=== PATIENT | female | born 1945 | race Hispanic/Latino ===

== ENCOUNTER 2017-05-28 11:37 | Emergency (ER) | payer OTHER ==
--- OUTSIDE RECORDS SUMMARY | 2017-05-28 11:40 | XMS REPORT | Clinical Summary ---
:1945 Author Organization [facility] Address [address] [place] [address] Care Team Providers Name Role Phone Asked, No Pcp Primary Care Provider Unavailable Allergies No Known Allergies Current Medications Prescription Sig. Disp. Refills Start Date End Date Status amLODIPine Take 5 mg by 09/25/2016 Active (NORVASC) 5 mg mouth daily. tablet furosemide (LASIX) Take 20 mg by 3 11/11/2016 Active 40 mg tablet mouth daily. losartan (COZAAR) Take 50 mg by 11/11/2016 Active 50 MG tablet mouth daily. omeprazole Take 40 mg by 0 11/20/2016 Active (PriLOSEC) 40 MG mouth daily. capsule RENVELA 800 mg Take 800 mg by 3 11/19/2016 Active tablet mouth 3 (three) times a day with meals. traMADol (ULTRAM) Take 50 mg by 11/23/2016 Active 50 mg tablet mouth every 12 (twelve) hours as needed for pain. for pain rOPINIRole Take 0.5 mg by 11 11/11/2016 Active (REQUIP) 0.5 MG mouth nightly as tablet needed for cramping. LEVEMIR FLEXTOUCH Inject 30 Units 3 10/09/2016 Active 100 unit/mL (3 mL) under the skin 2 insulin pen (two) times a day. NOVOLOG FLEXPEN Inject 8 Units 3 09/26/2016 Active 100 unit/mL under the skin 2 insulin pen (two) times a day. SANTYL ointment Apply 1 0 11/13/2016 Active application topically daily. carvedilol (COREG) Take 12.5 mg by 3 11/05/2016 Discontinued 12.5 MG tablet mouth daily. 7 ciprofloxacin HCl Take 250 mg by 0 12/04/2016 Discontinued (CIPRO) 250 MG mouth 2 (two) 7 tablet times a day. carvedilol (COREG) Take 1 tablet 30 tablet 0 12/25/2016 25 MG tablet (25 mg total) by 7 mouth daily for 30 days. ampicillin Take 1 capsule 20 capsule 0 12/25/2016 (PRINCIPEN) 500 MG (500 mg total) 7 capsule by mouth 2 (two) times a day for 10 days. Active Problems Problem Noted Date Peritoneal dialysis catheter dysfunction 12/21/2016 Anemia in chronic kidney disease 12/21/2016 Infection 12/21/2016 Encounters Date Type Specialty Care Team Description 12/22/2016 Anesthesia Event General Surgery Jamee Clayton CRNA 12/22/2016 Procedure Pass General Surgery 12/22/2016 Surgery General Surgery Opperpierre, ELLIOT Luna MD LAPAROSCOPY WITH REPOSITIONING OF PERITONEAL DIALYSIS CATHETER 12/21/2016 - Hospital Encounter General Internal Obia, Asma, Peritonitis (Primary Dx); 12/25/2016 Medicine Peritoneal dialysis catheter dysfunction, initial encounter 12/19/2016 Transcribe Orders Radiology Magaliki, Osteomyelitis, MD Petty unspecified site, unspecified type (Primary Dx) after 05/27/2016 Social History Tobacco Use Types Packs/Day Years Used Date Never Smoker Alcohol Use Drinks/Week oz/Week Comments No Sex Assigned at Date Recorded Not on file Last Filed Vital Signs Vital Sign Reading Time Taken Blood Pressure 152/65 12/25/2016 3:33 PM CDT Pulse 68 12/25/2016 3:33 PM CDT Temperature 36.8 C (98.2 F) 12/25/2016 3:33 PM CDT Respiratory Rate 18 12/25/2016 3:33 PM CDT Oxygen Saturation 93% 12/25/2016 3:33 PM CDT Inhaled Oxygen Concentration - - Weight 82.8 kg (182 lb 9.6 oz) 12/25/2016 4:52 AM CDT Height 149.9 cm (4' 11") 12/21/2016 1:49 AM CDT Body Mass Index 36.88 12/25/2016 4:52 AM CDT Plan of Treatment Health Maintenance Due Date Last Done Comments FOOT EXAM 01/26/1955 OPHTHALMOLOGY EXAM 01/26/1954 URINE MICROALBUMIN 01/26/1954 COLONOSCOPY 01/26/1994 MAMMOGRAM 01/26/1994 ZOSTER VACCINE 2004 PNEUMOCOCCAL POLYSACCHARIDE VACCINE AGE 65 AND OVER 01/26/2009 PNEUMOCOCCAL-13 01/26/2009 INFLUENZA VACCINE 09/30/2016 Implants Implanted Type Area Slice Plug Cutter Operator Helper Device Expiration Model / Identifier Date Serial / Lot Catheter Cv Powerline Dlmn Al 6fr - [id number] Surgical N/A: N/A BARD ACCESS 04/29/2021 [id number] / Implanted: 12/23/2016 (Quantity not on file) Implants; SYSTEMS / Expanders; [id number] Extenders; Surgical Wires Procedures Procedure Name Priority Date/Time Associated Diagnosis Comments ANESTHESIA INTUBATION Routine 12/22/2016 2:32 PM CDT Procedure Note - Pancho Miranda Jr., CRNA - 12/22/2016 2:31 PM CDT Airway Date/Time: 12/22/2016 2:20 PM Performed by: PANCHO MIRANDA JR Authorized by: LESLIE PAREDES Difficult Airway: No Resident/BASS GUITAR TEACHER: PANCHO MIRANDA JR Performed by: resident/BASS GUITAR TEACHER Preoxygenated with 100% O2: Yes C-spine Precautions Maintained Throughout: Yes Mask Ventilation: Easy mask Final Airway Type: Endotracheal airway Final Endotracheal Airway: ETT Cuffed: Yes Technique Used: Direct laryngoscopy Devices/Methods Used in Placement: Intubating stylet Blade Type: Melendez Laryngoscope Blade/Videolaryngoscope Blade Size: 2 ETT Size (mm): 7.0 Cuff at minimum occlusion pressure: Yes Measured from: Lips ETT to Lips (cm): 20 Placement Verified by: CO2 detection, direct visualization and equal breath sounds Laryngoscopic view: Grade I - full view of glottis Rapid Sequence Induction (RSI): No Modified RSI: No Number of Attempts at Approach: 1 ECHOCARDIOGRAM 2D COMPLETE W STAT 12/21/2016 1:36 PM CDT Results for this MMODE SPECTRAL COLOR DOPPLER procedure are in the (57066) results section. CONSULT TO OSTOMY CARE NURSE Routine 12/21/2016 4:43 AM CDT after 05/27/2016 Results IR Endovascular Consult (12/25/2016 2:09 PM) Specimen Performing Laboratory [facility] [address] [place] [address] Narrative Performing Radiologist Juice Judd MD Assistants None Anesthesia Type None. Indication No longer requiring tunneled central venous catheter. Procedure Right chest tunneled central venous catheter removal. Technique Written informed consent was obtained prior to the procedure. The procedure was performed at the bedside in the PACU with 20 minutes of face to face time with the patient. The right chest and tunneled central venous catheter were sterilely prepared and draped in the routine manner. The suture securing the tunneled central venous catheter were then cut. Using gentle traction, the cuff of the indwelling tunneled central venous catheter was freed, and this catheter was removed. Hemostasis was achieved with manual compression. The patient tolerated the procedure well. Total Fluoroscopic Time No fluoroscopy was used Complications None Specimens Removed As described above. Estimated Blood Loss Less then 1 mL Blood/Blood Products Administered None Grafts/Implants None Impression: Successful removal of the right chest tunneled central venous catheter, as described above. [facility]-[id number] Procedure Note Hm Interface, Radiology Results Incoming - 12/25/2016 2:22 PM CDT Performing Radiologist Juice Judd MD Assistants None Anesthesia Type None. Indication No longer requiring tunneled central venous catheter. Procedure Right chest tunneled central venous catheter removal. Technique Written informed consent was obtained prior to the procedure. The procedure was performed at the bedside in the PACU with 20 minutes of face to face time with the patient. The right chest and tunneled central venous catheter were sterilely prepared and draped in the routine manner. The suture securing the tunneled central venous catheter were then cut. Using gentle traction, the cuff of the indwelling tunneled central venous catheter was freed, and this catheter was removed. Hemostasis was achieved with manual compression. The patient tolerated the procedure well. Total Fluoroscopic Time No fluoroscopy was used Complications None Specimens Removed As described above. Estimated Blood Loss Less then 1 mL Blood/Blood Products Administered None Grafts/Implants None Impression: Successful removal of the right chest tunneled central venous catheter, as described above. [facility]-[id number] POC glucose (12/25/2016 11:36 AM)Only the most recent of24 resultswithin the time period is included. Component Value Ref Range POC glucose 154 (H) 65 - 99 mg/dL Comment: Meter ID: [id number] Visual Display Manager: Felipe Haley Specimen Performing Laboratory [facility] DEPARTMENT OF PATHOLOGY AND GENOMIC MEDICINE [address] [place] [id number] Estimated GFR (12/25/2016 6:00 AM)Only the most recent of4 resultswithin the time period is included. Component Value Ref Range GFR Non Af Amer 9 (A) mL/min/1.73 m2 GFR Af Amer 11 (A) mL/min/1.73 m2 Comment: Chronic kidney disease: <60 mL/min/1.73m2 Kidney failure: <15 mL/min/1.73m2 The estimated GFR is calculated from the IDMS-traceable Modification of Diet in Renal Disease Equation. The accuracy of the calculation is poor when the creatinine is normal. Calculated values >90 mL/min/1.73m2 are not reported. This equation has not been validated in children (<18 years), women, the elderly (>70 years), or ethnic groups other than Caucasians and Americans. Specimen Performing Laboratory Plasma specimen [facility] DEPARTMENT OF PATHOLOGY AND [facility]IC[facility] [address] [place] [id number] CBC with platelet and differential (12/25/2016 6:00 AM)Only the most recent of4 resultswithin the time period is included. Component Value Ref Range WBC 8.9 4.5 - 11.0 k/uL RBC 3.25 (L) 4.20 - 5.50 m/uL HGB 10.0 (L) 12.0 - 16.0 g/dL HCT 31.0 (L) 37.0 - 47.0 % MCV 95.4 82.0 - 100.0 fL MCH 30.8 27.0 - 34.0 pg MCHC 32.3 31.0 - 37.0 g/dL RDW - SD 45.6 37.0 - 55.0 fL MPV 10.4 6.9 - 11.0 fL Platelet count 282 150 - 400 K/uL Nucleated RBC 0.00 /100 WBC Neutrophils 59.6 39.0 - 69.0 % Lymphocytes 22.8 (L) 25.0 - 45.0 % Monocytes 10.3 (H) 0.0 - 10.0 % Eosinophils 4.9 0.0 - 5.0 % Basophils 0.8 0.0 - 1.0 % Immature granulocytes 1.6 (H) 0.0 - 1.0 % Specimen Performing Laboratory Blood [facility] DEPARTMENT OF PATHOLOGY AND [facility] [address] [place] [id number] Basic metabolic panel (12/25/2016 6:00 AM)Only the most recent of3 resultswithin the time period is included. Component Value Ref Range Sodium 141 135 - 148 mEq/L Potassium 3.5 3.5 - 5.0 mEq/L Chloride 102 98 - 112 mEq/L CO2 26 24 - 31 mEq/L Anion gap 13 7 - 15 mEq/L Comment: Starting from May , anion gap calculation no longer incorporates potassium. Please note the change. BUN 31 (H) 8 - 23 mg/dL Creatinine 4.7 (H) 0.5 - 0.9 mg/dL Glucose 142 (H) 65 - 99 mg/dL Calcium 8.3 (L) 8.8 - 10.2 mg/dL Specimen Performing Laboratory Plasma specimen [facility] DEPARTMENT OF PATHOLOGY AND GENOMIC MEDICINE [address] [place] [id number] Hepatitis B surface Ab, quantitative (12/24/2016 5:39 AM) Component Value Ref Range Hepatitis B surface Ab 16.24 IU/L Comment: The anti-HBs is greater than or equal to 10 IU/L. This patient has either had an antibody response to HBV vaccination, received a transfusion, or has recovered from HBV infection. This patient should be considered immune to hepatitis B. An anti-HBs result greater than or equal to 10 IU/L implies immunity. For post-vaccination antibody testing guidelines for the general public refer to MMWR February 21, 2005/Vol. 54(No. 16);1-23, and for healthcare workers refer to MMWR February 18, 2013/Vol. 62(No. 10);1-19. Reference Interval: anti-HBs 9.99 IU/L or less ....... Negative 10.00 IU/L or greater .... Positive Results greater than 1,000.00 IU/L are reported as greater than 1,000.00 IU/L. This assay should not be used for blood donor screening, associated re-entry protocols, or for screening Human Cell, Tissues and Cellular and Tissue-Based Products (HCT/P). Performed by [facility], [address] [place] [address] [id number] [email or web address], Fredrick Gonzalez MD - Lab. Director Specimen Performing Laboratory [facility] [address] [place] [address] Hepatitis B surface antibody (12/24/2016 5:39 AM) Component Value Ref Range Hepatitis B surface Ab Reactive (A) Non-reactive Specimen Performing Laboratory Blood [facility] DEPARTMENT OF PATHOLOGY AND GENOMIC MEDICINE [address] [place] [id number] Hepatitis B surface antigen (12/24/2016 5:39 AM) Component Value Ref Range Hepatitis B surface Ag Non-reactive Non-reactive Specimen Performing Laboratory Blood [facility] DEPARTMENT OF PATHOLOGY AND GENOMIC MEDICINE [address] [place] [id number] Sedimentation rate (12/24/2016 5:39 AM) Component Value Ref Range Sedimentation rate 107 (H) 0 - 20 mm/hr Specimen Performing Laboratory Blood [facility] DEPARTMENT OF PATHOLOGY AND GENOMIC MEDICINE [address] [place] [address] C-reactive protein (12/24/2016 5:39 AM) Component Value Ref Range CRP 3.81 (H) 0.00 - 0.50 mg/dL Specimen Performing Laboratory Plasma specimen [facility] DEPARTMENT OF PATHOLOGY AND GENOMIC MEDICINE [address] [place] [id number] IR Central Catheter Placement Us (12/23/2016 10:43 AM) Specimen Performing Laboratory [facility] [address] [place] [address] Narrative Performing Radiologist Ankur Enriquez MD Assistants None. Anesthesia Type Intraservice moderate sedation was administered by the procedure nurse and monitored by the procedure physician for 20 minutes. Lidocaine 1% and lidocaine 1% with epinephrine were used for local anesthetic. Pre Procedure Diagnosis cellulitis Post Procedure Diagnosis Status post tunneled right internal jugular vein central venous catheter placement. 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 Ultrasound-guided needle placement x2 Limited focused sonographic evaluation of the bilateral internal jugular veins Technique After explaining the procedure as well as its benefits and risks including but not limited to bleeding, infection, and damage to adjacent structures all of the patient's questions were answered to apparent satisfaction and written informed consent was then obtained. The patient's left neck and upper chest were sterilely prepared and draped in the routine manner. All elements of maximal sterile barrier technique were followed.Lidocaine 1% was used for local anesthetic. The left neck was interrogated with ultrasound which do not reveal a patent left internal jugular vein likely due to chronic occlusion. However, the left external jugular vein was identified. Permanent images were stored. Using real-time ultrasound guidance, a 21-gauge micropuncture needle was advanced successfully into the left external jugular vein. A 0.018 inch guidewire was advanced centrally though would not advance into the superior vena cava likely due to chronic occlusion from hemodialysis catheter placement. The needle was removed and hemostasis achieved after direct manual compression. The patient's right neck and upper chest were then prepped and draped in usual sterile fashion. All elements of maximal sterile barrier technique were utilized. The right neck was interrogated with ultrasound again revealing chronic occlusion of the right internal jugular vein. However, the right external jugular vein was patent. A new Dereck puncture needle was then inserted into the right external jugular vein using direct ultrasound guidance. A permanent image was stored in order to document vessel patency. Guidewire passed easily centrally into the inferior vena cava through the needle under fluoroscopy. The needle was removed and a micropuncture sheath system was then placed. Under ultrasound guidance, documentation of vessel patency, needle access with permanent recording, and reporting are performed followed by placement of a sheath in the right external jugular vein. The inner dilator and guidewire were then removed, and a guidewire was advanced through the micropuncture sheath and successfully into the inferior vena cava. The right infraclavicular fossa was anesthetized with lidocaine 1% mixed with epinephrine.A skin incision was made, and a tunneling device was used to pass the tunneled central venous catheter from the skin entry site to the venotomy site. Attention was then returned to the venotomy site. The tract was then sequentially dilated, and a tunneled central venous catheter was then deployed through a peel-away sheath. The catheter tip was placed in the right atrium under fluoroscopic guidance. All ports were tested and demonstrate adequate flow. The catheter was secured to the skin using 2-0 silk suture. The small venotomy incision was closed with Dermabond. The patient tolerated the procedure well. Total Fluoroscopic Exposure 11.8 mGy Complications None. Specimens Removed None. Estimated Blood Loss Less than 2 mL. Blood/Blood Products Administered None. Grafts/Implants As described in the above report. Impression: Successful fluoroscopic-guided placement of a tunneled central venous catheter via the right external jugular vein. Ready for use. 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 [facility]-[id number] Procedure Note Hm Interface, Radiology Results Incoming - 12/23/2016 11:00 AM CDT Performing Radiologist Ankur Enriquez MD Assistants None. Anesthesia Type Intraservice moderate sedation was administered by the procedure nurse and monitored by the procedure physician for 20 minutes. Lidocaine 1% and lidocaine 1% with epinephrine were used for local anesthetic. Pre Procedure Diagnosis cellulitis Post Procedure Diagnosis Status post tunneled right internal jugular vein central venous catheter placement. 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 Ultrasound-guided needle placement x2 Limited focused sonographic evaluation of the bilateral internal jugular veins Technique After explaining the procedure as well as its benefits and risks including but not limited to bleeding, infection, and damage to adjacent structures all of the patient's questions were answered to apparent satisfaction and written informed consent was then obtained. The patient's left neck and upper chest were sterilely prepared and draped in the routine manner. All elements of maximal sterile barrier technique were followed. Lidocaine 1% was used for local anesthetic. The left neck was interrogated with ultrasound which do not reveal a patent left internal jugular vein likely due to chronic occlusion. However, the left external jugular vein was identified. Permanent images were stored. Using real-time ultrasound guidance, a 21-gauge micropuncture needle was advanced successfully into the left external jugular vein. A 0.018 inch guidewire was advanced centrally though would not advance into the superior vena cava likely due to chronic occlusion from hemodialysis catheter placement. The needle was removed and hemostasis achieved after direct manual compression. The patient's right neck and upper chest were then prepped and draped in usual sterile fashion. All elements of maximal sterile barrier technique were utilized. The right neck was interrogated with ultrasound again revealing chronic occlusion of the right internal jugular vein. However, the right external jugular vein was patent. A new Dereck puncture needle was then inserted into the right external jugular vein using direct ultrasound guidance. A permanent image was stored in order to document vessel patency. Guidewire passed easily centrally into the inferior vena cava through the needle under fluoroscopy. The needle was removed and a micropuncture sheath system was then placed. Under ultrasound guidance, documentation of vessel patency, needle access with permanent recording, and reporting are performed followed by placement of a sheath in the right external jugular vein. The inner dilator and guidewire were then removed, and a guidewire was advanced through the micropuncture sheath and successfully into the inferior vena cava. The right infraclavicular fossa was anesthetized with lidocaine 1% mixed with epinephrine. A skin incision was made, and a tunneling device was used to pass the tunneled central venous catheter from the skin entry site to the venotomy site. Attention was then returned to the venotomy site. The tract was then sequentially dilated, and a tunneled central venous catheter was then deployed through a peel-away sheath. The catheter tip was placed in the right atrium under fluoroscopic guidance. All ports were tested and demonstrate adequate flow. The catheter was secured to the skin using 2-0 silk suture. The small venotomy incision was closed with Dermabond. The patient tolerated the procedure well. Total Fluoroscopic Exposure 11.8 mGy Complications None. Specimens Removed None. Estimated Blood Loss Less than 2 mL. Blood/Blood Products Administered None. Grafts/Implants As described in the above report. Impression: Successful fluoroscopic-guided placement of a tunneled central venous catheter via the right external jugular vein. Ready for use. 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 [id number] Non Tunneled Central Line (12/23/2016 10:43 AM) [place] [address] Narrative Performing Radiologist Ankur Enriquez MD Assistants None. Anesthesia Type Intraservice moderate sedation was administered by the procedure nurse and monitored by the procedure physician for 20 minutes. Lidocaine 1% and lidocaine 1% with epinephrine were used for local anesthetic. Pre Procedure Diagnosis cellulitis Post Procedure Diagnosis Status post tunneled right internal jugular vein central venous catheter placement. 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 Ultrasound-guided needle placement x2 Limited focused sonographic evaluation of the bilateral internal jugular veins Technique After explaining the procedure as well as its benefits and risks including but not limited to bleeding, infection, and damage to adjacent structures all of the patient's questions were answered to apparent satisfaction and written informed consent was then obtained. The patient's left neck and upper chest were sterilely prepared and draped in the routine manner. All elements of maximal sterile barrier technique were followed.Lidocaine 1% was used for local anesthetic. The left neck was interrogated with ultrasound which do not reveal a patent left internal jugular vein likely due to chronic occlusion. However, the left external jugular vein was identified. Permanent images were stored. Using real-time ultrasound guidance, a 21-gauge micropuncture needle was advanced successfully into the left external jugular vein. A 0.018 inch guidewire was advanced centrally though would not advance into the superior vena cava likely due to chronic occlusion from hemodialysis catheter placement. The needle was removed and hemostasis achieved after direct manual compression. The patient's right neck and upper chest were then prepped and draped in usual sterile fashion. All elements of maximal sterile barrier technique were utilized. The right neck was interrogated with ultrasound again revealing chronic occlusion of the right internal jugular vein. However, the right external jugular vein was patent. A new Dereck puncture needle was then inserted into the right external jugular vein using direct ultrasound guidance. A permanent image was stored in order to document vessel patency. Guidewire passed easily centrally into the inferior vena cava through the needle under fluoroscopy. The needle was removed and a micropuncture sheath system was then placed. Under ultrasound guidance, documentation of vessel patency, needle access with permanent recording, and reporting are performed followed by placement of a sheath in the right external jugular vein. The inner dilator and guidewire were then removed, and a guidewire was advanced through the micropuncture sheath and successfully into the inferior vena cava. The right infraclavicular fossa was anesthetized with lidocaine 1% mixed with epinephrine.A skin incision was made, and a tunneling device was used to pass the tunneled central venous catheter from the skin entry site to the venotomy site. Attention was then returned to the venotomy site. The tract was then sequentially dilated, and a tunneled central venous catheter was then deployed through a peel-away sheath. The catheter tip was placed in the right atrium under fluoroscopic guidance. All ports were tested and demonstrate adequate flow. The catheter was secured to the skin using 2-0 silk suture. The small venotomy incision was closed with Dermabond. The patient tolerated the procedure well. Total Fluoroscopic Exposure 11.8 mGy Complications None. Specimens Removed None. Estimated Blood Loss Less than 2 mL. Blood/Blood Products Administered None. Grafts/Implants As described in the above report. Impression: Successful fluoroscopic-guided placement of a tunneled central venous catheter via the right external jugular vein. Ready for use. 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 [facility]-[id number] Procedure Note Hm Interface, Radiology Results Incoming - 12/23/2016 11:30 AM CDT Performing Radiologist Ankur Enriquez MD Assistants None. Anesthesia Type Intraservice moderate sedation was administered by the procedure nurse and monitored by the procedure physician for 20 minutes. Lidocaine 1% and lidocaine 1% with epinephrine were used for local anesthetic. Pre Procedure Diagnosis cellulitis Post Procedure Diagnosis Status post tunneled right internal jugular vein central venous catheter placement. 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 Ultrasound-guided needle placement x2 Limited focused sonographic evaluation of the bilateral internal jugular veins Technique After explaining the procedure as well as its benefits and risks including but not limited to bleeding, infection, and damage to adjacent structures all of the patient's questions were answered to apparent satisfaction and written informed consent was then obtained. The patient's left neck and upper chest were sterilely prepared and draped in the routine manner. All elements of maximal sterile barrier technique were followed. Lidocaine 1% was used for local anesthetic. The left neck was interrogated with ultrasound which do not reveal a patent left internal jugular vein likely due to chronic occlusion. However, the left external jugular vein was identified. Permanent images were stored. Using real-time ultrasound guidance, a 21-gauge micropuncture needle was advanced successfully into the left external jugular vein. A 0.018 inch guidewire was advanced centrally though would not advance into the superior vena cava likely due to chronic occlusion from hemodialysis catheter placement. The needle was removed and hemostasis achieved after direct manual compression. The patient's right neck and upper chest were then prepped and draped in usual sterile fashion. All elements of maximal sterile barrier technique were utilized. The right neck was interrogated with ultrasound again revealing chronic occlusion of the right internal jugular vein. However, the right external jugular vein was patent. A new Dereck puncture needle was then inserted into the right external jugular vein using direct ultrasound guidance. A permanent image was stored in order to document vessel patency. Guidewire passed easily centrally into the inferior vena cava through the needle under fluoroscopy. The needle was removed and a micropuncture sheath system was then placed. Under ultrasound guidance, documentation of vessel patency, needle access with permanent recording, and reporting are performed followed by placement of a sheath in the right external jugular vein. The inner dilator and guidewire were then removed, and a guidewire was advanced through the micropuncture sheath and successfully into the inferior vena cava. The right infraclavicular fossa was anesthetized with lidocaine 1% mixed with epinephrine. A skin incision was made, and a tunneling device was used to pass the tunneled central venous catheter from the skin entry site to the venotomy site. Attention was then returned to the venotomy site. The tract was then sequentially dilated, and a tunneled central venous catheter was then deployed through a peel-away sheath. The catheter tip was placed in the right atrium under fluoroscopic guidance. All ports were tested and demonstrate adequate flow. The catheter was secured to the skin using 2-0 silk suture. The small venotomy incision was closed with Dermabond. The patient tolerated the procedure well. Total Fluoroscopic Exposure 11.8 mGy Complications None. Specimens Removed None. Estimated Blood Loss Less than 2 mL. Blood/Blood Products Administered None. Grafts/Implants As described in the above report. Impression: Successful fluoroscopic-guided placement of a tunneled central venous catheter via the right external jugular vein. Ready for use. 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 [facility]-[id number] Vancomycin level, trough (12/23/2016 3:55 AM) Component Value Ref Range Vancomycin, trough 24.9 (HH) 10.0 - 20.0 ug/mL Comment: Therapeutic Ranges: Peak30.0 - 40.0 ug/mL Amanxw73.0 - 20.0 ug/mL Final results called to and read back by GERARDO MCCOY 12/23/2016 04:43 AR Specimen Performing Laboratory Blood [facility] DEPARTMENT OF PATHOLOGY AND GENOMIC MEDICINE [address] [place] [id number] AFB culture (12/22/2016 6:45 PM) Component Value Ref Range AFB culture isolate No growth after 6 weeks of incubation. Comment: Specimen Information Specimen Source: Peritoneal fluid Specimen Site: Abdominal Specimen Performing Laboratory Peritoneal fluid - Abdominal [facility] DEPARTMENT OF PATHOLOGY AND GENOMIC MEDICINE [address] [place] [id number] Fungus culture (12/22/2016 6:45 PM) Component Value Ref Range Fungus culture isolate No growth after 4 weeks of incubation. Comment: Specimen Information Specimen Source: Peritoneal fluid Specimen Site: Abdominal Specimen Performing Laboratory Peritoneal fluid - Abdominal [facility] DEPARTMENT OF PATHOLOGY AND GENOMIC MEDICINE [address] [place] [phone] Fungus smear (12/22/2016 5:45 PM) Component Value Ref Range Fungus smear No fungi observed. Comment: Specimen Information Specimen Source: Peritoneal fluid Specimen Site: Abdominal Specimen Performing Laboratory Peritoneal fluid Abdominal [facility] DEPARTMENT OF PATHOLOGY AND GENOMIC MEDICINE [address] [place] [id number] Aerobic culture (12/22/2016 5:45 PM) Component Value Ref Range Aerobic culture isolate No growth after 3 days. Comment: Specimen Information Specimen Source: Peritoneal fluid Specimen Site: Abdominal Specimen Performing Laboratory Peritoneal fluid - Abdominal [facility] DEPARTMENT OF PATHOLOGY AND [facility] MEDICINE [address] [place] [phone] Gram stain (12/22/2016 5:45 PM) Component Value Ref Range Gram stain isolate Occasional WBC's No organisms seen Comment: Specimen Information Specimen Source: Peritoneal fluid Specimen Site: Abdominal Specimen Performing Laboratory Peritoneal fluid Abdominal [facility] DEPARTMENT OF PATHOLOGY AND [facility] MEDICINE [address] [place] [id number] AFB stain (12/22/2016 5:45 PM) Component Value Ref Range AFB stain No acid fast bacilli (AFB) seen. Comment: Specimen Information Specimen Source: Peritoneal fluid Specimen Site: Abdominal Specimen Performing Laboratory Peritoneal fluid Abdominal [facility] DEPARTMENT OF PATHOLOGY [address] [address] Anaerobic culture (12/22/2016 5:45 PM) Component Value Ref Range Anaerobic culture isolate No anaerobic organisms isolated. Comment: Specimen Information Specimen Source: Peritoneal fluid Specimen Site: Abdominal Specimen Performing Laboratory Peritoneal fluid Abdominal [facility] DEPARTMENT OF PATHOLOGY AND [facility] MEDICINE [address] [place] [address] Cell count and differential, body fluid (12/22/2016 5:45 PM) Component Value Ref Range Misc fluid type Peritoneal Color, fluid Red Appearance, fluid Cloudy (A) RBC, fluid 22,000 /CMM Nucleated cells, fluid 512 /CMM Fluid mononuclear cell See Diff Neutrophils, fluid 45 % Lymphocytes, fluid 34 % Eosinophils, fluid 1 % Macrophages, fluid 20 % Specimen Performing Laboratory Fluid [facility] DEPARTMENT OF PATHOLOGY AND GENOMIC MEDICINE [address] [place] [phone] Type and screen (12/22/2016 3:35 AM) Component Value Ref Range ABO grouping O Rh type POS Antibody screen (gel) NEG Specimen Performing Laboratory Blood [facility] DEPARTMENT PATHOLOGY AND [address] [address] Blood culture, aerobic & anaerobic (12/21/2016 3:00 PM)Only the most recent of2 resultswithin the time period is included. Component Value Ref Range Blood culture isolate No growth after 5 days of incubation. Comment: Specimen Information Specimen Source: Blood Specimen Site: Wrist, right Specimen Performing Laboratory Blood - Wrist, right [facility] DEPARTMENT OF PATHOLOGY AND GENOMIC MEDICINE [address] [place] [address] Echocardiogram complete w contrast and 3D if needed (12/21/2016 1:36 PM) Component Value Ref Range Ao Root Diameter 2.92 cm AoV Area, Vmax 4.61 cm2 AoV Area, VTI 6.10 cm2 AoV Mean PG 2.61 mmHg AoV Peak PG 9.31 mmHg AoV Vmax 1.53 m/s AoV VTI 0.23 m IVS,d 1.56 (A) 0.6 - 1.2 cm IVS/LVPW,2D 1.51 Left Atrium Dimension Anterior 3.12 cm LA Area d A4C 16.58 cm2 LV,d 3.87 cm LV EF,2D 64.82 % LV,s 2.73 cm LVOT area 4.08 cm2 LVOT Diam,S 2.28 cm LVOT Vmax 1.17 m/s LVOT VTI 0.34 m LVPWD,d 1.03 cm PV Pk Grad 1.93 mmHg PV VMAX 0.69 m/s RVOT Vmax 0.73 m/s TR Vpeak 2.34 mm/s MV E A ratio 0.64 mmHg TR pk grad 21.84 mmHg E wave decelartion time 388.38 msec MV Peak A Gio 1.09 m/s MV valve area p 1/2 method 1.95 cm2 MV Peak E Gio 0.70 m/s MV stenosis pressure 1/2 time 112.63 ms AV LVOT peak gradient 5.52 mmHg Ao Root Diameter 2.92 cm LV SYS VOL 27.82 ml LV BAPTISTE VOL 64.72 ml LV SV Teich 2D 36.90 ml LV Vol s Teich PSAX 27.82 ml RVOT pk grad 1.09 mmHg AoV Vmn 0.78 LV FS Teich 2D 29.40 MV AE ratio 1.55 LV FS Cube 2D 29.40 LVOT Vmn 0.85 Aov area Vmn 3.53 cm2 LA Vol d MOD A4C 44.94 ml LVOT mean grad 3.30 mmHg MAX Pred HR 147.10 85 of MPHR 125.03 Calc MPHR 147.10 bpm LV SV Cube 2D 37.58 ml LV vol d cube 2D 57.98 ml LV vol s cube 2D 20.40 ml MV Decel slope 1.81 m/s2 Pred Exer Dur R1 6.51 Pred METS R1 5.22 Velocity Ratio (V1/V2) 0.76 m/s EF 57.01 % E/A ratio 0.64 Specimen Performing Laboratory [facility] [address] [place] [address] Narrative There is moderate left ventricular hypertrophy. Left Ventricular ejection fraction is 55 - 60%. No pericardial effusion Spectral Doppler shows impaired relaxation pattern of left ventricular diastolic filling. Stage I diastolic dysfunction with pseudonormal filling dynamics. ECG Pre/Post Op (12/21/2016 1:19 PM) Component Value Ref Range Ventricular rate 71 Atrial rate 71 VA interval 138 QRSD interval 72 QT interval 430 QTC interval 467 P axis 1 59 QRS axis 1 49 T wave axis -11 EKG impression Normal sinus rhythm-Septal infarct , age undetermined-T wave abnormality, consider inferior ischemia-Abnormal ECG-No previous ECGs available- Specimen Performing Laboratory [facility] [address] [place] [address] CT Abdomen Pelvis Wo Contrast (12/21/2016 9:43 AM) Specimen Performing Laboratory [facility] [address] [place] [address] Narrative EXAMINATION:CT ABDOMEN PELVIS WO CONTRAST CLINICAL HISTORY:PERITONITIS PD CATHTER DYSFUNCTION TECHNIQUE: Multiple axial images of the abdomen and pelvis were obtained without intravenous administration of iodinated contrast. Sagittal and coronal computerized reformatted images were also obtained. The lack of intravenous contrast reduces the sensitivity of detecting solid organ disease. CT scans are performed using radiation dose reduction techniques. Technical factors are evaluated and adjusted to ensure appropriate moderation of exposure. Automated dose management technology is applied to adjust radiation exposure while achieving a diagnostic quality image. COMPARISON:None. IMPRESSION: 1.The unenhanced spleen, adrenal glands, and pancreas are unremarkable. Multiple gallstones are present in the gallbladder without gallbladder distention. A benign-appearing calcified mass within the medial left lobe of the liver measures 2.2 cm. Bilateral nonspecific perinephric stranding is present. There is no hydronephrosis. 2.There is calcified plaque within the abdominal aorta which is normal in caliber. There is no lymphadenopathy or ascites. 3.There is a tiny hiatal hernia. There are no inflammatory changes around the large or small bowel. Appendix is normal. 4.There is a peritoneal dialysis catheter which enters the midline of the upper pelvis and terminates just anterior and superior to the bladder. 5.Bladder is partially distended with urine. Multiple calcified masses within the uterus are most consistent with uterine fibroids, the largest measuring 1.3 cm. No pelvic lymphadenopathy is seen. 6.A small calcified granuloma is present in the right lower lobe. There is volume loss and scarring in the lung bases. There are degenerative changes within the lower thoracic and lumbosacral spine. [id number] Procedure Note Hm Interface, Radiology Results Incoming - 12/21/2016 9:54 AM CDT EXAMINATION: CT ABDOMEN PELVIS WO CONTRAST CLINICAL HISTORY: PERITONITIS PD CATHTER DYSFUNCTION TECHNIQUE: Multiple axial images of the abdomen and pelvis were obtained without intravenous administration of iodinated contrast. Sagittal and coronal computerized reformatted images were also obtained. The lack of intravenous contrast reduces the sensitivity of detecting solid organ disease. CT scans are performed using radiation dose reduction techniques. Technical factors are evaluated and adjusted to ensure appropriate moderation of exposure. Automated dose management technology is applied to adjust radiation exposure while achieving a diagnostic quality image. COMPARISON: None. IMPRESSION: 1. The unenhanced spleen, adrenal glands, and pancreas are unremarkable. Multiple gallstones are present in the gallbladder without gallbladder distention. A benign-appearing calcified mass within the medial left lobe of the liver measures 2.2 cm. Bilateral nonspecific perinephric stranding is present. There is no hydronephrosis. 2. There is calcified plaque within the abdominal aorta which is normal in caliber. There is no lymphadenopathy or ascites. 3. There is a tiny hiatal hernia. There are no inflammatory changes around the large or small bowel. Appendix is normal. 4. There is a peritoneal dialysis catheter which enters the midline of the upper pelvis and terminates just anterior and superior to the bladder. 5. Bladder is partially distended with urine. Multiple calcified masses within the uterus are most consistent with uterine fibroids, the largest measuring 1.3 cm. No pelvic lymphadenopathy is seen. 6. A small calcified granuloma is present in the right lower lobe. There is volume loss and scarring in the lung bases. There are degenerative changes within the lower thoracic and lumbosacral spine. [id number] Prothrombin time with INR (12/21/2016 4:00 AM) Component Value Ref Range Prothrombin time 13.9 12.0 - 15.0 sec INR 1.1 Comment: The International Normalized Ratio (INR) is a therapeutic monitoring tool for patients who are stable on oral anticoagulant therapy. An INR of 2.0-3.0 is suggested for deep vein thrombosis/pulmonary embolism. Specimen Performing Laboratory Blood [facility] DEPARTMENT OF PATHOLOGY AND [address] [address] Lactic acid level (12/21/2016 4:00 AM) Component Value Ref Range Lactic acid 0.7 0.5 - 2.2 mmol/L Specimen Performing Laboratory Plasma specimen [facility] DEPARTMENT OF PATHOLOGY AND [address] [address] Hemoglobin A1c (12/21/2016 4:00 AM) Component Value Ref Range Hemoglobin A1C 8.2 (H) 4.0 - 6.0 % Comment: Less than 6% - Goal of therapy for Type II Diabetes Less than 7%-Goal of therapy for Type I Diabetes Less than 8%-Acceptable control for Type I or Type II Diabetes Greater than 8%-Unacceptable control; action indicated. ([id number]) Specimen Performing Laboratory Blood [facility] PATHOLOGY AND [address] [address] Comprehensive metabolic panel (12/21/2016 4:00 AM) Component Value Ref Range Sodium 141 135 - 148 mEq/L Potassium 3.4 (L) 3.5 - 5.0 mEq/L Chloride 100 98 - 112 mEq/L CO2 25 24 - 31 mEq/L Anion gap 16 (H) 7 - 15 mEq/L Comment: Starting from May , anion gap calculation no longer incorporates potassium. Please note the change. BUN 39 (H) 8 - 23 mg/dL Creatinine 5.1 (H) 0.5 - 0.9 mg/dL Glucose 97 65 - 99 mg/dL Calcium 8.7 (L) 8.8 - 10.2 mg/dL Protein 7.1 6.3 - 8.3 g/dL Albumin 3.1 (L) 3.5 - 5.0 g/dL A/G ratio 0.8 0.7 - 3.8 Alkaline phosphatase 76 35 - 104 U/L AST 15 10 - 35 U/L ALT 9 5 - 50 U/L Total bilirubin 0.3 0.2 - 1.2 mg/dL Specimen Performing Laboratory Plasma specimen [facility] DEPARTMENT OF PATHOLOGY AND GENOMIC MEDICINE [address] [place] [id number] after 05/27/2016 Insurance Payer Benefit Plan / Group Subscriber ID Type Phone Address MEDICARE MEDICARE PART A AND B xxxxxxxxxx Medicare [place], [place] [facility] [place] [employer] xxxxxxxxx [facility] Home: [address] [phone] [place] [id number]
[2017-05-28] MEDS ORDERED: D50W 25 GM/50 ML SYRINGE IV ONE (12:12)
[2017-05-28 12:30] LABS: Absolute Lymphocytes (CBC) 2.1 K/uL (0.7-4.9); Absolute Monocytes 0.8 K/uL (0.1-1.3); Basophils % 0.9 % (0-1.3); Hematocrit 31.6 % (36.0-45.0); Lymphocytes % 20.6 % (15.3-44.8); MCH 30.8 pg (27.0-35.0); MCV 94.2 fL (80-100); MPV 9.5 fL (7.6-11.3); Monocytes % 8.1 % (3.3-12.3); RBC Red Blood Cell Count 3.35 M/uL (3.86-4.86)
[2017-05-28 12:35] LABS: Potassium 3.6 mEq/L (3.6-5.0)
[2017-05-28 12:40] LABS: Magnesium 2.8 mg/dL (1.8-2.5)
[2017-05-28] MEDS ORDERED: NA CHLORIDE 0.9% 250 ML ONE (13:01)
--- NOTE | 2017-05-28 14:50 | ER ---
Nurse's Notes [facility] Name: Gabrielle White Age: 72 yrs Sex: Female : 1945 Arrival Date: 05/28/2017 Time: 11:48 Bed 4 Private MD: TERENCE SHERMAN Diagnosis: Hypoglycemia, unspecified Presentation: 05/28 11:48 Presenting complaint: EMS states: pt was picked up at a dialysis clinic for a health sg management appointment, pt performs peritoneal dialysis at home, has been doing dialysis as scheduled, no problems reported with the dialysis. pt family members report the pt to be groggy today and acting different, FSBG per EMS was 55, oral glucose administered in route, a repeat FSBG was not performed, pt also hypotensive with readings of 90/40, EMS trendelenburg pt reports the blood pressure came up "a bit". Transition of care: patient was received from another setting of care (ambulatory specialty care practice), Dialysis Center, EMS unsure of the name. Onset of symptoms was May 28, 2017. Care prior to arrival: Medication(s) given: Glucagon, IV initiated. 20 GA, in the left hand, Glucose check: 55. 11:48 [email or web address] Acuity: JESUS 3 sg Historical: - Allergies: 12:00 NKDA; sg - PMHx: 12:00 Anemia; CHF; Diabetes - IDDM; Hyperlipidemia; Hypertension; neuropathy; Pneumonia; sg RENAL FAILURE; - PSHx: 12:00 peritoneal dialysis; sg - Immunization history:: Adult Immunizations unknown. - Social history:: Smoking status: Patient/guardian denies using tobacco. Screenin:16 Abuse screen: Denies threats or abuse. Denies injuries from another. Nutritional sg screening: No deficits noted. Tuberculosis screening: No symptoms or risk factors identified. Never had TB. Fall Risk None identified. Assessment: 12:00 General: Appears in no apparent distress. comfortable, well groomed, well developed, sg well nourished, Behavior is calm, cooperative, appropriate for age. Pain: Denies pain. Neuro: Level of Consciousness is awake, alert, obeys commands, Oriented to person, situation, Senior Svp are equal bilaterally Speech is normal, Facial symmetry appears normal, mostly polish speaking only, awaiting pt family member to arrive at this time. Cardiovascular: Heart tones S1 S2 present Capillary refill is brisk in bilateral fingers Patient's skin is warm and dry. Pulses are palpable in right radial artery and left radial artery Chest pain is denied. Respiratory: Airway is patent Respiratory effort is even, unlabored, Respiratory pattern is regular, symmetrical, Breath sounds are clear. GI: Abdomen is round non-distended, Bowel sounds present X 4 quads. Reports tolerance of fluids, tolerance of food, Patient currently denies nausea, pain, vomiting. : No signs and/or symptoms were reported regarding the genitourinary system. Reports peritoneal dialysis. EENT: No signs and/or symptoms were reported regarding the EENT system. Derm: Skin is intact, is healthy with good turgor, Skin is dry, Skin is normal, Skin temperature is cool. Musculoskeletal: No signs and/or symptoms reported regarding the musculoskeletal system. 13:00 Reassessment: Patient appears in no apparent distress at this time. Patient and/or sg family updated on plan of care and expected duration. Pain level reassessed. Patient is alert, oriented x 3, equal unlabored respirations, skin warm/dry/pink. pt reports " im hungry." Francisco STOVALL notified, orders received for diet, pt informed, pt thankful. will continue to monitor. Vital Signs: 12:03 BP 91 / 77; Pulse 56; Resp 16 S; Temp 97.7; Pulse Ox 99% ; Weight 79.83 kg; Pain 0/10; sg 14:03 BP 116 / 51; Pulse 60; Resp 16 S; Pulse Ox 100% on R/A; Pain 0/10; sg ED Course: 11:48 Patient arrived in ED. sg 11:48 TERENCE SHERMAN is Private Physician. sg 11:51 Triage completed. sg 11:51 Arm band placed on. sg 11:59 Francisco Elizondo PA [facility]. jr8 11:59 Joaquin Crespo MD is Attending Physician. jr8 12:00 Initial lab(s) drawn, by ED staff, sent to lab. Inserted saline lock: 22 gauge in right sg antecubital area, using aseptic technique. Blood collected. IV inserted by on call pharmacy technician Seven. 12:16 EKG done, by instrument/control technician. reviewed by Francisco STOVALL. at1 13:03 Esteban Franklin, GERARDO is Primary Nurse. sg Administered Medications: 12:09 Drug: D50W 50 ml Route: IVP; Site: left hand; sg 12:45 Follow up: Response: No adverse reaction; Blood sugar is elevated; FSBG of 93, Francisco STOVALL sg notified 13:03 Not Given (Physician Discretion): NS 0.9% 1000 ml IV at 1000 ml once sg 13:04 Drug: NS 0.9% 250 ml Route: IV; Rate: 1 bolus; Site: right antecubital; Point of Care Testing: Blood Glucose: 11:51 Blood Glucose: 46 mg/dL; sg 14:53 Blood Glucose: 93 mg/dL; sg 11:51 ERP notified, administered 1 amp dextrose IVP per protocol sg Ranges: Intake: Outcome: 14:49 Discharge ordered by MD. de leon 15:44 Patient left the ED. sg Signatures: Esteban Franklin, RN RN Francisco Chong PA PA jr8 Ila oden, athletic trainer EKG Tat1 Corrections: (The following items were deleted from the chart) 12:03 11:48 Presenting complaint: EMS states: pt was picked up at a dialysis clinic for a sg health management appointment, pt performs peritoneal dialysis at home, has been doing dialysis as scheduled, no problems reported with the dialysis. pt family members report the pt to be groggy today and acting different, FSBG per EMS was 55, oral glucose administered in route, a repeat FSBG was not performed sg
--- NOTE | 2017-05-28 14:50 | EDPHYS ---
Physician Documentation [facility] Name: Gabrielle White Age: 72 yrs Sex: Female : 1945 Arrival Date: 05/28/2017 Time: 11:48 Bed 4 Private MD: TERENCE SHERMAN ED Physician Joaquin Crespo HPI: 05/28 13:27 This 72 yrs old Female presents to ER via EMS with complaints of Low Blood jr8 Sugar. 13:27 Onset: The symptoms/episode began/occurred acutely, today. Current symptoms: In the [facility] emergency department the patient's symptoms are unchanged from the initial presentation. It is unknown whether or not the patient has had similar symptoms in the past. The patient has not recently seen a physician. Family stated that she has been slightly weak for the past couple of days with some dizziness. Today was unable to get out of bed and was acting differently. EMS was called and found that patient had low blood glucose. Oral glucose given enroute . Historical: - Allergies: 12:00 NKDA; sg - PMHx: 12:00 Anemia; CHF; Diabetes - IDDM; Hyperlipidemia; Hypertension; neuropathy; Pneumonia; sg RENAL FAILURE; - PSHx: 12:00 peritoneal dialysis; sg - Immunization history:: Adult Immunizations unknown. - Social history:: Smoking status: Patient/guardian denies using tobacco. ROS: 13:27 Eyes: Negative for injury, pain, redness, and discharge, ENT: Negative for injury, jr8 pain, and discharge, Neck: Negative for injury, pain, and swelling, Cardiovascular: Negative for chest pain, palpitations, and edema, Respiratory: Negative for shortness of breath, cough, wheezing, and pleuritic chest pain, Abdomen/GI: Negative for abdominal pain, nausea, vomiting, diarrhea, and constipation, Back: Negative for injury and pain, MS/Extremity: Negative for injury and deformity, Skin: Negative for injury, rash, and discoloration. 13:27 Neuro: Positive for altered mental status, dizziness, weakness. Exam: 13:27 Head/Face: Normocephalic, atraumatic. Eyes: Pupils equal round and reactive to light, jr8 extra-ocular motions intact. Lids and lashes normal. Conjunctiva and sclera are non-icteric and not injected. Cornea within normal limits. Periorbital areas with no swelling, redness, or edema. ENT: Nares patent. No nasal discharge, no septal abnormalities noted. Tympanic membranes are normal and external auditory canals are clear. Oropharynx with no redness, swelling, or masses, exudates, or evidence of obstruction, uvula midline. Mucous membranes moist. Neck: Trachea midline, no thyromegaly or masses palpated, and no cervical lymphadenopathy. Supple, full range of motion without nuchal rigidity, or vertebral point tenderness. No Meningismus. Cardiovascular: Regular rate and rhythm with a normal S1 and S2. No gallops, murmurs, or rubs. Normal PMI, no JVD. No pulse deficits. Respiratory: Lungs have equal breath sounds bilaterally, clear to auscultation and percussion. No rales, rhonchi or wheezes noted. No increased work of breathing, no retractions or nasal flaring. Abdomen/GI: Soft, non-tender, with normal bowel sounds. No distension or tympany. No guarding or rebound. No evidence of tenderness throughout. Back: No spinal tenderness. No costovertebral tenderness. Full range of motion. Skin: Warm, dry with normal turgor. Normal color with no rashes, no lesions, and no evidence of cellulitis. MS/ Extremity: Pulses equal, no cyanosis. Neurovascular intact. Full, normal range of motion. Neuro: Awake and alert, GCS 15, oriented to person, place, time, and situation. Cranial nerves II-XII grossly intact. Motor strength 5/5 in all extremities. Sensory grossly intact. Cerebellar exam normal. Normal gait. DTRs with slight diminishment Vital Signs: 12:03 BP 91 / 77; Pulse 56; Resp 16 S; Temp 97.7; Pulse Ox 99% ; Weight 79.83 kg; Pain 0/10; sg 14:03 BP 116 / 51; Pulse 60; Resp 16 S; Pulse Ox 100% on R/A; Pain 0/10; sg MDM: 11:59 Patient medically screened. [facility] 14:49 Data reviewed: vital signs, nurses notes, lab test result(s), EKG, and as a result, I [facility] will discharge patient. Data interpreted: Pulse oximetry: on room air is 100 %. Interpretation: normal. Counseling: I had a detailed discussion with the patient and/or guardian regarding: the historical points, exam findings, and any diagnostic results supporting the discharge/admit diagnosis, lab results, the need for outpatient follow up, a family practitioner, nephrology . Response to treatment: the patient's symptoms have resolved after treatment. 05/28 12:07 Order name: CBC with Diff; Complete Time: 12:49 05/28 12:07 Order name: Basic Metabolic Panel; Complete Time: 12:53 05/28 12:07 Order name: Magnesium; Complete Time: 12:53 05/28 12:07 Order name: Glucose Level; Complete Time: 12:09 05/28 12:07 Order name: EKG - Nurse/Tech; Complete Time: 12:07 05/28 12:46 Order name: Diet Ada 1800 [place]; Complete Time: 13:10 bd Administered Medications: 12:09 Drug: D50W 50 ml Route: IVP; Site: left hand; sg 12:45 Follow up: Response: No adverse reaction; Blood sugar is elevated; [facility] of [place] Parks notified 13:03 Not Given (Physician Discretion): NS 0.9% 1000 ml IV at 1000 ml once sg 13:04 Drug: NS 0.9% 250 ml Route: IV; Rate: 1 bolus; Site: right antecubital; sg Point of Care Testing: Blood Glucose: 11:51 Blood Glucose: 46 mg/dL; sg 14:53 Blood Glucose: 93 mg/dL; sg 11:51 ERP notified, administered 1 amp dextrose IVP per protocol sg Ranges: Critical Glucose Levels:Adult <50 mg/dl or >400 mg/dl <40 mg/dl or >180 mg/dl Disposition: 05/28/17 14:49 Discharged to Home. Impression: Hypoglycemia, unspecified. - Condition is Stable. - Discharge Instructions: Hypoglycemia, Blood Glucose Monitoring, Adult. - Medication Reconciliation Form, Thank You Letter, Antibiotic Education, Prescription Opioid Use form. - Follow up: Private Physician; When: 1 - 2 days; Reason: Recheck today's complaints, Continuance of care, Re-evaluation by your physician. - Problem is new. - Symptoms have improved. Addendum: 05/30/2017 06:15 Co-signature as Attending Physician, Joaquin Crespo MD. g s Signatures: Dispatcher [employer] Esteban Mcneil RN RN Francisco Chong PA PA [id number] Joaquin Crespo MD MD gs
[2017-05-28 15:49] VITALS: TEMP 97.7
[2017-05-28 15:51] VITALS: BP 116/51; O2SAT 100
--- NOTE | 2017-05-31 13:04 | EKG ---
Test Date: 2017-05-28 Test Time: 11:55:06 Lead Applications Developer: RONI/Sunny MEASUREMENT RESULTS: Intervals: Rate: 56 FL: 180 QRSD: 102 QT: 512 QTc: 494 [place]: P: 46 FL: 180 QRS: 28 T: 60 INTERPRETIVE STATEMENTS: Sinus bradycardia Prolonged QT Abnormal ECG Compared to ECG 12/20/2016 18:09:08 Prolonged QT interval now present Sinus rhythm no longer present Myocardial infarct finding no longer present Electronically Signed On 05-31-17 13:03:20 CDT by Elvin Burciaga
== END 2017-05-28 15:44 | disposition home or self-care (01) ==
LOC: ER 11:37
DX: E11.649 Type 2 diabetes mellitus with hypoglycemia without coma (principal); N19 Unspecified kidney failure
CPT/HCPCS: 36415; 80048; 82962; 83735; 85025; 93005; 99284

== ENCOUNTER 2017-07-14 02:24 | Emergency (ER) | payer OTHER ==
--- OUTSIDE RECORDS SUMMARY | 2017-07-14 02:27 | XMS REPORT | Clinical Summary ---
:1945 Author Organization [facility] Address [address] [place] [address] Care Team Providers Name Role Phone Asked, [...] dysfunction, initial encounter 12/19/2016 Transcribe Orders Radiology Jarret, Osteomyelitis, MD Petty unspecified site, unspecified type (Primary Dx) after 07/13/2016 Social History Tobacco Use Types Packs/Day Years [...] URINE MICROALBUMIN 01/26/1954 COLONOSCOPY 01/26/1994 MAMMOGRAM 01/26/1994 SHINGRIX VACCINE (#1) 01/26/1994 ZOSTER VACCINE 2004 PNEUMOCOCCAL POLYSACCHARIDE VACCINE AGE 65 AND OVER 01/26/2009 PNEUMOCOCCAL-13 01/26/2009 INFLUENZA VACCINE 09/30/2017 Implants Implanted Type Area Grid Operator Device Expiration Model / Identifier Date Serial / Lot Catheter Cv Powerline Dlmn Al 6fr - [id number] Surgical N/A: N/A BARD ACCESS 04/29/2021 [id number] / Implanted: 12/23/2016 (Quantity not on file) Implants; SYSTEMS / Expanders; [id number] Extenders; Surgical Wires Procedures Procedure Name Priority Date/Time Associated Diagnosis Comments ANESTHESIA INTUBATION Routine 12/22/2016 2:32 PM CDT Procedure Note - Pancho Miranda Jr., CRNA - 12/22/2016 2:31 PM CDT Airway Date/Time: 12/22/2016 2:20 PM Performed by: PANCHO MIRANDA JR Authorized by: LESLIE PAREDES Difficult Airway: No Resident/CHECK SERVICES CLERK: PANCHO MIRANDA JR Performed by: resident/CHECK SERVICES CLERK Preoxygenated with 100% O2: Yes C-spine Precautions [...] SPECTRAL COLOR DOPPLER procedure are in the (15338) results section. CONSULT TO OSTOMY CARE NURSE Routine 12/21/2016 4:43 AM CDT after 07/13/2016 Results IR Endovascular Consult (12/25/2016 2:09 PM) Specimen Performing Laboratory [facility] [address] [place] [address] Narrative Performing Radiologist Juice Judd MD Assistants [...] tunneled central venous catheter, as described above. [facility]-[id number] Procedure Note [facility], Radiology Results Incoming - 12/25/2016 2:22 PM [...] tunneled central venous catheter, as described above. [id number] POC glucose (12/25/2016 11:36 AM)Only the most recent of24 resultswithin the time period is included. Component Value Ref Range POC glucose 154 (H) 65 - 99 mg/dL Comment: Meter ID: [id number] Drilling Field Operator: Felipe Haley Specimen Performing Laboratory [facility] DEPARTMENT OF PATHOLOGY AND GENOMIC MEDICINE [address] [place] [address] Estimated GFR (12/25/2016 6:00 AM)Only the most [...] and Americans. Specimen Performing Laboratory Plasma specimen [facility] DEPARTMENT OF PATHOLOGY AND [facility] [address] [place] [address] CBC with platelet and differential (12/25/2016 6:00 [...] - 1.0 % Specimen Performing Laboratory Blood [facility] DEPARTMENT OF PATHOLOGY AND [address] [address] Basic metabolic panel (12/25/2016 6:00 AM)Only the [...] 10.2 mg/dL Specimen Performing Laboratory Plasma specimen [facility] DEPARTMENT OF PATHOLOGY AND GENOMIC MEDICINE [address] [place] [address] Hepatitis B surface Ab, quantitative (12/24/2016 5:39 [...] Cellular and Tissue-Based Products (HCT/P). Performed by [facility], [address] [place] [address] [id number] [email or web address], Fredrick Gonzalez MD - Lab. Director Specimen Performing Laboratory Serum [facility] [address] [place] [phone] Hepatitis B surface antibody (12/24/2016 5:39 AM) Component Value Ref Range Hepatitis B surface Ab Reactive (A) Non-reactive Specimen Performing Laboratory Blood [facility] DEPARTMENT OF PATHOLOGY AND GENOMIC MEDICINE [address] [place] [address] Hepatitis B surface antigen (12/24/2016 5:39 AM) Component Value Ref Range Hepatitis B surface Ag Non-reactive Non-reactive Specimen Performing Laboratory Blood [facility] DEPARTMENT OF PATHOLOGY AND GENOMIC MEDICINE [address] [place] [address] Sedimentation rate (12/24/2016 5:39 AM) Component Value Ref Range Sedimentation rate 107 (H) 0 - 20 mm/hr Specimen Performing Laboratory Blood [facility] DEPARTMENT OF PATHOLOGY AND GENOMIC MEDICINE [address] [place] [address] C-reactive protein (12/24/2016 5:39 AM) Component Value Ref Range CRP 3.81 (H) 0.00 - 0.50 mg/dL Specimen Performing Laboratory Plasma specimen [facility] DEPARTMENT OF PATHOLOGY AND GENOMIC MEDICINE [address] [place] [address] IR Central Catheter Placement Us (12/23/2016 10:43 AM) Specimen Performing Laboratory [facility] [address] [place] [address] Narrative Performing Radiologist Ankur Enriquez MD Assistants [...] 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 [facility]-[id number] Procedure Note Hm Interface, Radiology Results Incoming [...] 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 [facility]-[id number] Vancomycin level, trough (12/23/2016 3:55 AM) Component Value Ref Range Vancomycin, trough 24.9 (HH) 10.0 - 20.0 ug/mL Comment: Therapeutic Ranges: Peak30.0 - 40.0 ug/mL Knfcmd73.0 - 20.0 ug/mL Final results called to and read back by GERARDO MCCOY 12/23/2016 04:43 AR Specimen Performing Laboratory Blood [facility] DEPARTMENT OF PATHOLOGY AND GENOMIC MEDICINE [address] [place] [address] AFB culture (12/22/2016 6:45 PM) Component Value Ref Range AFB culture isolate No growth after 6 weeks of incubation. Comment: Specimen Information Specimen Source: Peritoneal fluid Specimen Site: Abdominal Specimen Performing Laboratory Peritoneal fluid - Abdominal [facility] DEPARTMENT OF PATHOLOGY AND GENOMIC MEDICINE [address] [place] [address] Fungus culture (12/22/2016 6:45 PM) Component Value Ref Range Fungus culture isolate No growth after 4 weeks of incubation. Comment: Specimen Information Specimen Source: Peritoneal fluid Specimen Site: Abdominal Specimen Performing Laboratory Peritoneal fluid - Abdominal [facility] DEPARTMENT OF PATHOLOGY AND GENOMIC MEDICINE [address] [place] [address] Fungus smear (12/22/2016 5:45 PM) Component Value Ref Range Fungus smear No fungi observed. Comment: Specimen Information Specimen Source: Peritoneal fluid Specimen Site: Abdominal Specimen Performing Laboratory Peritoneal fluid - Abdominal [facility] DEPARTMENT OF PATHOLOGY AND GENOMIC MEDICINE [address] [place] [address] Aerobic culture (12/22/2016 5:45 PM) Component Value Ref Range Aerobic culture isolate No growth after 3 days. Comment: Specimen Information Specimen Source: Peritoneal fluid Specimen Site: Abdominal Specimen Performing Laboratory Peritoneal fluid Abdominal [facility] DEPARTMENT OF PATHOLOGY AND [facility] MEDICINE [address] [place] [address] Gram stain (12/22/2016 5:45 PM) Component Value Ref Range Gram stain isolate Occasional WBC's No organisms seen Comment: Specimen Information Specimen Source: Peritoneal fluid Specimen Site: Abdominal Specimen Performing Laboratory Peritoneal fluid Abdominal [facility] DEPARTMENT OF PATHOLOGY AND GENOMIC MEDICINE [address] [place] [address] AFB stain (12/22/2016 5:45 PM) Component Value Ref Range AFB stain No acid fast bacilli (AFB) seen. Comment: Specimen Information Specimen Source: Peritoneal fluid Specimen Site: Abdominal Specimen Performing Laboratory Peritoneal fluid Abdominal [facility] DEPARTMENT OF PATHOLOGY [address] [address] Anaerobic culture (12/22/2016 5:45 PM) Component Value Ref Range Anaerobic culture isolate No anaerobic organisms isolated. Comment: Specimen Information Specimen Source: Peritoneal fluid Specimen Site: Abdominal Specimen Performing Laboratory Peritoneal fluid Abdominal [facility] DEPARTMENT OF PATHOLOGY AND [facility] MEDICINE [address] [place] [address] Cell count and differential, body fluid (12/22/2016 5:45 PM) Component Value Ref Range Misc fluid type Peritoneal Color, fluid Red Appearance, fluid Cloudy (A) RBC, fluid 22,000 /CMM Nucleated cells, fluid 512 /CMM Fluid mononuclear cell See Diff Neutrophils, fluid 45 % Lymphocytes, fluid 34 % Eosinophils, fluid 1 % Macrophages, fluid 20 % Specimen Performing Laboratory Fluid [facility] DEPARTMENT OF PATHOLOGY AND GENOMIC MEDICINE [address] [place] [address] Type and screen (12/22/2016 3:35 AM) Component Value Ref Range ABO grouping O Rh type POS Antibody screen (gel) NEG Specimen Performing Laboratory Blood [facility] DEPARTMENT OF PATHOLOGY AND [address] [address] Blood culture, aerobic & anaerobic (12/21/2016 3:00 PM)Only the most recent of2 resultswithin the time period is included. Component Value Ref Range Blood culture isolate No growth after 5 days of incubation. Comment: Specimen Information Specimen Source: Blood Specimen Site: Wrist, right Specimen Performing Laboratory Blood - Wrist, right [facility] DEPARTMENT OF PATHOLOGY AND GENOMIC MEDICINE [address] [place] [address] Echocardiogram complete w contrast and 3D if [...] ratio 0.64 Specimen Performing Laboratory [facility] [address] [place] [address] Narrative There is moderate left ventricular hypertrophy. Left Ventricular ejection fraction is 55 - 60%. No pericardial effusion Spectral Doppler shows impaired relaxation pattern of left ventricular diastolic filling. Stage I diastolic dysfunction with pseudonormal filling dynamics. ECG Pre/Post Op (12/21/2016 1:19 PM) Component Value Ref Range Ventricular rate 71 Atrial rate 71 WV interval 138 QRSD interval 72 QT interval 430 QTC interval 467 P axis 1 59 QRS axis 1 49 T wave axis -11 EKG impression Normal sinus rhythm-Septal infarct , age undetermined-T wave abnormality, consider inferior ischemia-Abnormal ECG-No previous ECGs available- Specimen Performing Laboratory [facility] MUSE [address] [place] [address] CT Abdomen Pelvis Wo Contrast (12/21/2016 9:43 AM) Specimen Performing Laboratory [facility] [address] [place] [address] Narrative EXAMINATION:CT ABDOMEN PELVIS WO CONTRAST CLINICAL [...] within the lower thoracic and lumbosacral spine. [id number] Procedure Note Hm Interface, Radiology Results Incoming [...] within the lower thoracic and lumbosacral spine. [id number] Prothrombin time with INR (12/21/2016 4:00 AM) Component Value Ref Range Prothrombin time 13.9 12.0 - 15.0 sec INR 1.1 Comment: The International Normalized Ratio (INR) is a therapeutic monitoring tool for patients who are stable on oral anticoagulant therapy. An INR of 2.0-3.0 is suggested for deep vein thrombosis/pulmonary embolism. Specimen Performing Laboratory Blood [facility] DEPARTMENT OF PATHOLOGY AND [address] [address] Lactic acid level (12/21/2016 4:00 AM) Component Value Ref Range Lactic acid 0.7 0.5 - 2.2 mmol/L Specimen Performing Laboratory Plasma specimen [facility] DEPARTMENT OF PATHOLOGY AND [address] [address] Hemoglobin A1c (12/21/2016 4:00 AM) Component Value Ref Range Hemoglobin A1C 8.2 (H) 4.0 - 6.0 % Comment: Less than 6% - Goal of therapy for Type II Diabetes Less than 7%-Goal of therapy for Type I Diabetes Less than 8%-Acceptable control for Type I or Type II Diabetes Greater than 8%-Unacceptable control; action indicated. (ADA94) Specimen Performing Laboratory Blood [facility] AND [address] [address] Comprehensive metabolic panel (12/21/2016 4:00 AM) Component [...] 1.2 mg/dL Specimen Performing Laboratory Plasma specimen [facility] DEPARTMENT OF PATHOLOGY AND GENOMIC MEDICINE [address] [place] [address] after 07/13/2016 Insurance Payer Benefit Plan / Group Subscriber ID Type Phone Address MEDICARE MEDICARE PART A AND B xxxxxxxxxx Medicare [place], [place] [employer] [place] xxxxxxxxx [facility] [phone] [place] [phone]
[2017-07-14] MEDS ORDERED: ONDANSETRON 4 MG/2 ML VIAL ONE (02:56)
[2017-07-14 03:03] LABS: Absolute Lymphocytes (CBC) 2.1 K/uL (0.7-4.9); Absolute Monocytes 0.7 K/uL (0.1-1.3); Absolute Neutrophil 11.3 K/uL (1.8-8.0); Basophils % 0.8 % (0-1.3); Eosinophils % 1.1 % (0-4.4); Hematocrit 39.3 % (36.0-45.0); Lymphocytes % 14.6 % (15.3-44.8); MCH 31.3 pg (27.0-35.0); MCV 97.2 fL (80-100); MPV 9.7 fL (7.6-11.3); Monocytes % 4.6 % (3.3-12.3); RBC Red Blood Cell Count 4.04 M/uL (3.86-4.86)
[2017-07-14 03:08] LABS: Protime INR 1.03
[2017-07-14 03:17] LABS: Potassium 5.2 mEq/L (3.6-5.0)
[2017-07-14 03:23] LABS: Albumin 4.1 g/dL (3.2-5.5); Bilirubin Direct 0.1 mg/dL (0-0.2); Magnesium 2.9 mg/dL (1.8-2.5); Protein, Total 8.5 g/dL (6.0-8.3)
[2017-07-14 03:25] LABS: CKMB Creatine Kinase MB 1.3 ng/ml (0.3-4.0)
[2017-07-14] MEDS ORDERED: INSULIN -REGULAR HUMAN 50 UNIT/0.5 ML ML ONE (03:42)
--- NOTE | 2017-07-14 06:02 | ER ---
Nurse's Notes [facility] Name: Gabrielle White Age: 72 yrs Sex: Female : 1945 Arrival Date: 07/14/2017 Time: 02:33 Bed 7 Private MD: Diagnosis: Weakness;Hyperglycemia, unspecified Presentation: 07/14 02:33 Presenting complaint: EMS states: Daughter called for patient who became weak when mg2 walking to the bathroom, dizzy; States Dialysis yesterday evening, 2L removed. Transition of care: patient was not received from another setting of care. Onset of symptoms was July 14, 2017. Initial Sepsis Screen: Does the patient meet any 2 criteria? No. Patient's initial sepsis screen is negative. Does the patient have a suspected source of infection? No. Patient's initial sepsis screen is negative. Care prior to arrival: Glucose check: 420. 02:33 Method Of Arrival: EMS: [facility] mg2 02:33 Acuity: JESUS 3 mg2 Triage Assessment: 02:44 General: Appears in no apparent distress. Behavior is calm. Pain: Denies pain. lp1 Cardiovascular: Patient's skin is warm and dry. Respiratory: Respiratory effort is even. Historical: - Allergies: 02:42 NKDA; lp1 - Home Meds: 02:42 carvedilol 12.5 mg Oral tab 1 tab 2 times per day [Active]; Coreg Oral [Active]; lp1 esomeprazole magnesium 20 mg Oral cpDR 1 cap once daily [Active]; ferrous sulfate 324 mg (65 mg iron) Oral TbEC 325 mg daily [Active]; fluoxetine 10 mg Oral cap [Active]; hydralazine 25 mg Oral tab 1 tab [Active]; Lasix 20 mg Oral tab 1 tab once daily for Hypertension [Active]; levemir 62 units twice a day for Diabetes [Active]; Nexium 20 mg Oral cpDR [Active]; pravastatin 40 mg Oral tab 1 tab once daily [Active]; - PMHx: 02:42 Anemia; CHF; Diabetes - IDDM; Hyperlipidemia; Hypertension; neuropathy; Pneumonia; lp1 RENAL FAILURE; - PSHx: 02:42 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 - Social history:: Smoking status: Patient/guardian denies using tobacco. Screenin:38 Abuse screen: Denies threats or abuse. Denies injuries from another. Nutritional lp1 screening: No deficits noted. Tuberculosis screening: No symptoms or risk factors identified. Fall Risk Total Silva Fall Scale indicates High Risk Score (45 or more points). Fall prevention measures have been instituted. Side Rails Up X 2 Family Present and informed to notify staff if the need to leave the bedside As available patient and family educated on Fall Prevention Program and Strategies. Assessment: 02:56 General: Appears in no apparent distress. comfortable, Behavior is calm, cooperative, mg2 appropriate for age. Pain: Denies pain. Neuro: Level of Consciousness is awake, alert, obeys commands. Cardiovascular: Capillary refill < 3 seconds Patient's skin is warm and dry. Rhythm is sinus rhythm. Respiratory: Airway Respiratory effort is even, unlabored. GI: Reports nausea. : No signs and/or symptoms were reported regarding the genitourinary system. EENT: No signs and/or symptoms were reported regarding the EENT system. Derm: Skin is pink, warm \T\ dry. yellowish. Musculoskeletal: Circulation, motion, and sensation intact. 03:47 Reassessment: Patient and/or family updated on plan of care and expected duration. Pain ea level reassessed. Patient is alert, oriented x 3, equal unlabored respirations, skin warm/dry/pink. 04:12 Reassessment: Patient and/or family updated on plan of care and expected duration. Pain ea level reassessed. Patient is alert, oriented x 3, equal unlabored respirations, skin warm/dry/pink. 05:19 Reassessment: Patient and/or family updated on plan of care and expected duration. Pain ea level reassessed. Pt resting with eyes closed, respirations even and unlabored, chest expansions even and symmetrical. No s/s of pain or discomfort noted at this time. 05:45 Reassessment: Pt reported she did not have to go to the restroom, understood that urine mg2 sample was needed, verbalized the understanding of using call light if she needed to go to the restroom. Pt reported she did not have to go but would use the call light if she needs to go. 06:48 Reassessment: Patient and/or family updated on plan of care and expected duration. Pain mg2 level reassessed. Patient is alert, oriented x 3, equal unlabored respirations, skin warm/dry/pink. Discharge instructions given to patient's daughter, verbalized the understanding of instructions. Vital Signs: 02:43 BP 92 / 62; Pulse 77; Resp 13; Temp 97.8(O); Pulse Ox 99% on R/A; Weight 58.97 kg; lp1 Height 5 ft. 0 in. (152.40 cm); Pain 0/10; 04:02 BP 102 / 73; Pulse 73; Resp 18; Pulse Ox 100% on R/A; Pain 0/10; mg2 05:23 BP 100 / 59; Pulse 73; Resp 18; Pulse Ox 96% on R/A; ea 06:02 BP 101 / 58; Pulse 71; Resp 18; Pulse Ox 94% on R/A; Pain 0/10; mg2 02:43 Body Mass Index 25.39 (58.97 kg, 152.40 cm) lp1 ED Course: 02:33 Patient arrived in ED. mg2 02:38 Triage completed. mg2 02:38 Arm band placed on right wrist. mg2 02:38 Patient has correct armband on for positive identification. Bed in low position. Call lp1 light in reach. Side rails up X2. potline monitor on. Pulse ox on. NIBP on. 02:38 Inserted saline lock: 22 gauge in left antecubital area, using aseptic technique. Blood ea collected. 02:54 Martell Fairchild MD is Attending Physician. tw4 02:55 Cristian Rojo, GERARDO is Primary Nurse. mg2 02:56 X-ray completed. Portable x-ray completed in exam room. Patient tolerated procedure kw well. 02:56 XRAY Chest (1 view) In Process Unspecified. EDMS 03:28 Notified ED physician of a critical lab result(s). glucose 421, creat 9.78. fc 06:40 IV discontinued, intact, bleeding controlled, No redness/swelling at site. Pressure mg2 dressing applied. 06:48 No provider procedures requiring assistance completed. mg2 Administered Medications: 03:00 Drug: Zofran 4 mg Route: IVP; Site: left antecubital; ea 03:46 Follow up: Response: No adverse reaction; Marked relief of symptoms ea 03:46 Drug: Insulin Regular Human 5 units {Co-Signature: lp1 (Krista Rogers RN).} Route: Sub-Q; ea Site: right upper arm; 06:33 Follow up: Response: No adverse reaction; Blood sugar is lowered ea 04:04 Drug: Insulin Regular Human 10 units {Co-Signature: mg2 (Cristian Rojo RN).} Route: ea IVP; Site: left antecubital; 06:32 Follow up: Response: No adverse reaction; Blood sugar is lowered ea Point of Care Testing: Blood Glucose: 02:37 Blood Glucose: 375 mg/dL; ea 04:27 Blood Glucose: 353 mg/dL; lp1 05:56 Blood Glucose: 225 mg/dL; lp1 Ranges: Outcome: 06:01 Discharge ordered by . tw4 06:47 Discharged to home via wheelchair, with family. mg2 06:47 Condition: improved 06:47 Discharge instructions given to family, Instructed on discharge instructions, follow up and referral plans. Demonstrated understanding of instructions, follow-up care. 06:50 Patient left the ED. mg2 Signatures: Dispatcher [employer] EDLisa Henderson RN RN fc Whitley, Kimberlee kw Pena, Laura, RN RN lp1 Kiana Narayanan RN Martell Lester ea, MD MD twCristian Lopez RN RN mg2 Krista Rogers RN lp1 Cristian Rojo RN mg2
--- NOTE | 2017-07-14 06:02 | EDPHYS ---
Physician Documentation [facility] Name: Gabrielle White Age: 72 yrs Sex: Female : 1945 Arrival Date: 07/14/2017 Time: 02:33 Bed 7 Private MD: ED Physician Martell Fairchild HPI: 07/14 06:02 This 72 yrs old Female presents to ER via EMS with complaints of General tw4 Weakness. 06:02 The patient presents with generalized weakness. Onset: The symptoms/episode tw4 began/occurred today. Context: occurred at home, occurred while the patient was standing. Modifying factors: The symptoms are alleviated by nothing, the symptoms are aggravated by nothing. Associated signs and symptoms: The patient has no apparent associated signs or symptoms. Patient's baseline: Neuro: alert and fully oriented, Motor: no deficits, Ambulation: walks without assistance. The patient has not experienced similar symptoms in the past. Historical: - Allergies: 02:42 NKDA; lp1 - Home Meds: 02:42 carvedilol 12.5 mg Oral tab 1 tab 2 times per day [Active]; Coreg Oral [Active]; lp1 esomeprazole magnesium 20 mg Oral cpDR 1 cap once daily [Active]; ferrous sulfate 324 mg (65 mg iron) Oral TbEC 325 mg daily [Active]; fluoxetine 10 mg Oral cap [Active]; hydralazine 25 mg Oral tab 1 tab [Active]; Lasix 20 mg Oral tab 1 tab once daily for Hypertension [Active]; levemir 62 units twice a day for Diabetes [Active]; Nexium 20 mg Oral cpDR [Active]; pravastatin 40 mg Oral tab 1 tab once daily [Active]; - PMHx: 02:42 Anemia; CHF; Diabetes - IDDM; Hyperlipidemia; Hypertension; neuropathy; Pneumonia; lp1 RENAL FAILURE; - PSHx: 02:42 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 - Social history:: Smoking status: Patient/guardian denies using tobacco. ROS: 06:02 Constitutional: Negative for fever, chills, and weight loss, Cardiovascular: Negative tw4 for chest pain, palpitations, and edema, Respiratory: Negative for shortness of breath, cough, wheezing, and pleuritic chest pain, Abdomen/GI: Negative for abdominal pain, nausea, vomiting, diarrhea, and constipation, Back: Negative for injury and pain, MS/Extremity: Negative for injury and deformity, Neuro: Negative for headache, weakness, numbness, tingling, and seizure. Exam: 06:02 Constitutional: This is a well developed, well nourished patient who is awake, alert, tw4 and in no acute distress. Chest/axilla: Normal chest wall appearance and motion. Nontender with no deformity. No lesions are appreciated. Cardiovascular: Regular rate and rhythm with a normal S1 and S2. No gallops, murmurs, or rubs. Normal PMI, no JVD. No pulse deficits. Respiratory: Lungs have equal breath sounds bilaterally, clear to auscultation and percussion. No rales, rhonchi or wheezes noted. No increased work of breathing, no retractions or nasal flaring. Abdomen/GI: Soft, non-tender, with normal bowel sounds. No distension or tympany. No guarding or rebound. No evidence of tenderness throughout. Back: No spinal tenderness. No costovertebral tenderness. Full range of motion. MS/ Extremity: Pulses equal, no cyanosis. Neurovascular intact. Full, normal range of motion. Neuro: Awake and alert, GCS 15, oriented to person, place, time, and situation. Cranial nerves II-XII grossly intact. Motor strength 5/5 in all extremities. Sensory grossly intact. Cerebellar exam normal. Normal gait. Vital Signs: 02:43 BP 92 / 62; Pulse 77; Resp 13; Temp 97.8(O); Pulse Ox 99% on R/A; Weight 58.97 kg; lp1 Height 5 ft. 0 in. (152.40 cm); Pain 0/10; 04:02 BP 102 / 73; Pulse 73; Resp 18; Pulse Ox 100% on R/A; Pain 0/10; mg2 05:23 BP 100 / 59; Pulse 73; Resp 18; Pulse Ox 96% on R/A; ea 06:02 BP 101 / 58; Pulse 71; Resp 18; Pulse Ox 94% on R/A; Pain 0/10; mg2 02:43 Body Mass Index 25.39 (58.97 kg, 152.40 cm) lp1 MDM: 02:54 Patient medically screened. tw4 06:02 Differential diagnosis: cardiac arrhythmia, CVA, hyperventilation, hypovolemia, tw4 idiopathic dizziness, near-syncope, vertigo. Data reviewed: vital signs, nurses notes. Data interpreted: pvc monitor: Pulse oximetry: Interpretation: normal. Test interpretation: by ED physician or midlevel provider: ECG. Counseling: I had a detailed discussion with the patient and/or guardian regarding: the historical points, exam findings, and any diagnostic results supporting the discharge/admit diagnosis, lab results. Special discussion: I discussed with the patient/guardian in detail that at this point there is no indication for admission to the hospital. It is understood, however, that if the symptoms persist or worsen the patient needs to return immediately for re-evaluation. 07/14 02:41 Order name: Basic Metabolic Panel; Complete Time: 03:07/14 03:32 Interpretation: Normal except: K 5.2; CO2 20; GLUC 421; CL 95; BUN 60; CRE 9.78; GFR 4. 07/14 02:41 Order name: BNP; Complete Time: 03:07/14 02:41 Order name: CBC with Diff; Complete Time: 03:07/14 03:27 Interpretation: Abnormal: WBC 14.3; MCV 97.2; ROSETTA% 78.9; LYM% 14.6; NEUT A 11.3. 07/14 02:41 Order name: Ckmb; Complete Time: 03:32 07/14 03:33 Interpretation: Within normal limits: CKMB 1.3. 07/14 02:41 Order name: CPK; Complete Time: 03:32 07/14 02:41 Order name: LFT's; Complete Time: 03:32 07/14 03:32 Interpretation: Normal except: TP 8.5; GLOB 4.4; A/G 0.9. 07/14 02:41 Order name: Magnesium; Complete Time: 03:32 07/14 03:33 Interpretation: Abnormal: MG 2.9. 07/14 02:41 Order name: PT-INR; Complete Time: 03:26 07/14 02:41 Order name: Ptt, Activated; Complete Time: 03:07/14 03:27 Interpretation: Within normal limits: PTT 26.9. 07/14 02:41 Order name: Troponin (emerg Dept Use Only); Complete Time: 03:26 07/14 03:27 Interpretation: Within normal limits: TROPED 0.03. tw4 07/14 02:41 Order name: XRAY Chest (1 view) [facility] 07/14 02:41 Order name: EKG; Complete Time: 02:42 07/14 02:41 Order name: Cardiac monitoring; Complete Time: 02:48 07/14 02:41 Order name: EKG - Nurse/Tech; Complete Time: 02:48 07/14 02:41 Order name: IV Saline Lock; Complete Time: 02:48 07/14 02:41 Order name: Labs collected and sent; Complete Time: 02:49 07/14 02:41 Order name: O2 Per Protocol; Complete Time: 02:49 07/14 02:41 Order name: O2 Sat Monitoring; Complete Time: 02:49 EC:02 Rate is 76 beats/min. Rhythm is regular. QRS [place] is Normal. [place] interval is normal. QRS tw4 interval is normal. QT interval is normal. No Q waves. T waves are Normal. No ST changes noted. Clinical impression: Normal ECG. Interpreted by me. Reviewed by me. Administered Medications: 03:00 Drug: Zofran 4 mg Route: IVP; Site: left antecubital; ea 03:46 Follow up: Response: No adverse reaction; Marked relief of symptoms ea 03:46 Drug: Insulin Regular Human 5 units {Co-Signature: lp1 (Krista Rogers RN).} Route: Sub-Q; ea Site: right upper arm; 06:33 Follow up: Response: No adverse reaction; Blood sugar is lowered ea 04:04 Drug: Insulin Regular Human 10 units {Co-Signature: mg2 (Cristian Rojo RN).} Route: ea IVP; Site: left antecubital; 06:32 Follow up: Response: No adverse reaction; Blood sugar is lowered ea Point of Care Testing: Blood Glucose: 02:37 Blood Glucose: 375 mg/dL; ea 04:27 Blood Glucose: 353 mg/dL; lp1 05:56 Blood Glucose: 225 mg/dL; lp1 Ranges: Critical Glucose Levels:Adult <50 mg/dl or >400 mg/dl <40 mg/dl or >180 mg/dl Disposition: 07/14/17 06:01 Discharged to Home. Impression: Weakness, Hyperglycemia, unspecified. - Condition is Stable. - Discharge Instructions: Weakness, [id number], Hyperglycemia, [id number]. - Family Work Release, Medication Reconciliation Form, Thank You Letter, Antibiotic Education, Prescription Opioid Use form. - Follow up: Private Physician; When: As needed; Reason: Recheck today's complaints, Re-evaluation by your physician. - Problem is new. - Symptoms have improved. Signatures: Dispatcher [employer] EDMS Krista Rogers, RN RN lp1 Kiley Chacon RN RN ak1 Kiana Narayanan RN RN Martell Garduno MD MD tw4 Cristian Rojo RN RN mg2 Krista Rogers RN lp1 Cristian Rojo RN mg2 Corrections: (The following items were deleted from the chart) 03:27 03:27 Normal except: WBC 14.3; MCV 97.2; ROSETTA% 78.9; LYM% 14.6; NEUT A 11.3. 4 4 06:01 06:01 07/14/2017 06:01 Discharged to Home. Impression: Weakness. Condition is Stable. 4 Forms are Medication Reconciliation Form, Thank You Letter, Antibiotic Education, Prescription Opioid Use. Follow up: Private Physician; When: As needed; Reason: Recheck today's complaints, Re-evaluation by your physician. Problem is new. Symptoms have improved. 4 06:50 06:01 07/14/2017 06:01 Discharged to Home. Impression: Weakness; Hyperglycemia, mg2 unspecified. Condition is Stable. Discharge Instructions: Weakness, [id number]. Forms are Medication Reconciliation Form, Thank You Letter, Antibiotic Education, Prescription Opioid Use. Follow up: Private Physician; When: As needed; Reason: Recheck today's complaints, Re-evaluation by your physician. Problem is new. Symptoms have improved. tw4
[2017-07-14 06:54] VITALS: TEMP 97.8
[2017-07-14 06:58] VITALS: BP 101/58; O2SAT 94
--- NOTE | 2017-07-14 08:41 | RAD REPORT ---
EXAM DESCRIPTION: RAD - Chest Single View - 07/14/2017 2:58 am CLINICAL HISTORY: Chest pain COMPARISON: September 2016 TECHNIQUE: AP portable chest image was obtained 0248 hours . FINDINGS: Lung markings are prominent but clear of a focal infiltrate, mass or failure finding. Hear t and vasculature are normal. No measurable pleural effusion and no pneumothorax. No gross bony abnor mality seen. No acute aortic findings suspected. IMPRESSION: No acute cardiopulmonary process. No significant change from comparison.
--- NOTE | 2017-07-14 08:44 | EKG ---
Test Date: 2017-07-14 Test Time: 02:42:05 Factory Manager: MEASUREMENT RESULTS: Intervals: Rate: 76 MA: 150 QRSD: 84 QT: 416 QTc: 468 [place]: P: 53 MA: 150 QRS: 10 T: 77 INTERPRETIVE STATEMENTS: Normal sinus rhythm Normal ECG Compared to ECG 05/28/2017 11:55:06 Sinus bradycardia no longer present Prolonged QT interval no longer present Electronically Signed On 07-14-17 08:43:39 CDT by Alexis Zamora
== END 2017-07-14 06:50 | disposition home or self-care (01) ==
LOC: ER 02:24
DX: E11.65 Type 2 diabetes mellitus with hyperglycemia (principal); I10 Essential (primary) hypertension; N19 Unspecified kidney failure; I50.9 Heart failure, unspecified; Z79.4 Long term (current) use of insulin
CPT/HCPCS: 36415; 71045; 80048; 80076; 82550; 82553; 82962 ×3; 83735; 83880; 84484; 85025; 85610; 85730; 93005; 96372; 96374; 96375; 99285; J2405

== ENCOUNTER 2017-07-17 15:33 | Emergency (ER) | payer OTHER ==
--- OUTSIDE RECORDS SUMMARY | 2017-07-17 15:35 | XMS REPORT | Clinical Summary ---
:1945 Author Organization [facility] Address [address] [place] [address] Care Team Providers Name Role Phone Asked, [...] CATHETER 12/21/2016 - Hospital Encounter General Internal Marlenihva, Asma, Peritonitis (Primary Dx); 12/25/2016 Medicine Peritoneal dialysis catheter dysfunction, initial encounter 12/19/2016 Transcribe Orders Radiology Giolanki, Osteomyelitis, MD Petty unspecified site, unspecified type (Primary Dx) after 07/16/2016 Social History Tobacco Use Types Packs/Day Years [...] Health Maintenance Due Date Last Done Comments DIABETIC FOOT EXAM 01/26/1954 DIABETIC RETINAL EYE EXAM 01/26/1954 URINE MICROALBUMIN 01/26/1954 BREAST CANCER SCREENING 01/26/1994 COLON CANCER SCREENING 01/26/1994 SHINGRIX VACCINE (#1) 01/26/1994 ZOSTER VACCINE 2004 PNEUMOCOCCAL POLYSACCHARIDE VACCINE AGE 65 AND OVER 01/26/2009 PNEUMOCOCCAL-13 01/26/2009 INFLUENZA VACCINE 09/30/2017 Implants Implanted Type Area Real Estate Firm Manager Device Expiration Model / Identifier Date Serial / Lot Catheter Cv Powerline Dlmn Al 6fr - [id number] Surgical N/A: N/A BARD ACCESS 04/29/2021 [id number] / Implanted: 12/23/2016 (Quantity not on file) Implants; SYSTEMS / Expanders; [id number] Extenders; Surgical Wires Procedures Procedure Name Priority Date/Time Associated Diagnosis Comments ANESTHESIA INTUBATION Routine 12/22/2016 2:32 PM CDT Procedure Note - Pancho Miranda Jr., CRNA - 12/22/2016 2:31 PM CDT Airway Date/Time: 12/22/2016 2:20 PM Performed by: PANCHO MIRANDA JR Authorized by: LESLIE PAREDES Difficult Airway: No Resident/CREW DIRECTOR: PANCHO MIRANDA JR Performed by: resident/CREW DIRECTOR Preoxygenated with 100% O2: Yes C-spine Precautions [...] SPECTRAL COLOR DOPPLER procedure are in the (16200) results section. CONSULT TO OSTOMY CARE NURSE Routine 12/21/2016 4:43 AM CDT after 07/16/2016 Results IR Endovascular Consult (12/25/2016 2:09 PM) Specimen Performing Laboratory [facility] [address] [place] [address] Narrative Performing Radiologist Juice Judd MD Assistants [...] tunneled central venous catheter, as described above. [facility]-[id number] Procedure Note [facility], Radiology Results Incoming - 12/25/2016 2:22 PM [...] tunneled central venous catheter, as described above. [facility]-[id number] POC glucose (12/25/2016 11:36 AM)Only the most recent of24 resultswithin the time period is included. Component Value Ref Range POC glucose 154 (H) 65 - 99 mg/dL Comment: Meter ID: [id number] Silk Spooler: Felipe Haley Specimen Performing Laboratory [facility] DEPARTMENT OF PATHOLOGY AND GENOMIC MEDICINE [address] [place] [address] Estimated GFR (12/25/2016 6:00 AM)Only the most [...] and Americans. Specimen Performing Laboratory Plasma specimen [facility] DEPARTMENT OF PATHOLOGY AND [facility] MEDICINE [address] [place] [address] CBC with platelet and differential (12/25/2016 6:00 [...] - 1.0 % Specimen Performing Laboratory Blood [facility] DEPARTMENT OF PATHOLOGY AND [facility] [address] [place] [address] Basic metabolic panel (12/25/2016 6:00 AM)Only the [...] 10.2 mg/dL Specimen Performing Laboratory Plasma specimen [facility] DEPARTMENT OF PATHOLOGY AND GENOMIC MEDICINE [address] [place] [address] Hepatitis B surface Ab, quantitative (12/24/2016 5:39 [...] Cellular and Tissue-Based Products (HCT/P). Performed by [facility], [address] [place] [address] [id number] [email or web address], Fredrick Gonzalez MD - Lab. Director Specimen Performing Laboratory Serum [facility] [address] [place] [address] Hepatitis B surface antibody (12/24/2016 5:39 AM) Component Value Ref Range Hepatitis B surface Ab Reactive (A) Non-reactive Specimen Performing Laboratory Blood [facility] DEPARTMENT OF PATHOLOGY AND GENOMIC MEDICINE [address] [place] [address] Hepatitis B surface antigen (12/24/2016 5:39 AM) Component Value Ref Range Hepatitis B surface Ag Non-reactive Non-reactive Specimen Performing Laboratory Blood [facility] DEPARTMENT OF PATHOLOGY AND GENOMIC MEDICINE [address] [place] [address] Sedimentation rate (12/24/2016 5:39 AM) Component Value Ref Range Sedimentation rate 107 (H) 0 - 20 mm/hr Specimen Performing Laboratory Blood [facility] DEPARTMENT OF PATHOLOGY AND GENOMIC MEDICINE [address] [place] [address] C-reactive protein (12/24/2016 5:39 AM) Component Value Ref Range CRP 3.81 (H) 0.00 - 0.50 mg/dL Specimen Performing Laboratory Plasma specimen [facility] DEPARTMENT OF PATHOLOGY AND [address] [address] IR Central Catheter Placement Us (12/23/2016 10:43 AM) Specimen Performing [facility] [address] [place] [address] Narrative Performing Radiologist Ankur Enriquez MD Assistants [...] 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 [facility]-[id number] Vancomycin level, trough (12/23/2016 3:55 AM) Component Value Ref Range Vancomycin, trough 24.9 () 10.0 - 20.0 ug/mL Comment: Therapeutic Ranges: Peak30.0 - 40.0 ug/mL Qfggxs26.0 - 20.0 ug/mL Final results called to and read back by GERARDO MCCOY 12/23/2016 04:43 AR Specimen Performing Laboratory Blood [facility] DEPARTMENT OF PATHOLOGY AND GENOMIC MEDICINE [address] [place] [address] AFB culture (12/22/2016 6:45 PM) Component Value Ref Range AFB culture isolate No growth after 6 weeks of incubation. Comment: Specimen Information Specimen Source: Peritoneal fluid Specimen Site: Abdominal Specimen Performing Laboratory Peritoneal fluid - Abdominal [facility] DEPARTMENT OF PATHOLOGY AND GENOMIC MEDICINE [address] [place] [address] Fungus culture (12/22/2016 6:45 PM) Component Value Ref Range Fungus culture isolate No growth after 4 weeks of incubation. Comment: Specimen Information Specimen Source: Peritoneal fluid Specimen Site: Abdominal Specimen Performing Laboratory Peritoneal fluid - Abdominal [facility] DEPARTMENT OF PATHOLOGY AND GENOMIC MEDICINE [address] [place] [address] Fungus smear (12/22/2016 5:45 PM) Component Value Ref Range Fungus smear No fungi observed. Comment: Specimen Information Specimen Source: Peritoneal fluid Specimen Site: Abdominal Specimen Performing Laboratory Peritoneal fluid Abdominal [facility] DEPARTMENT OF PATHOLOGY AND GENOMIC MEDICINE [address] [place] [address] Aerobic culture (12/22/2016 5:45 PM) Component Value Ref Range Aerobic culture isolate No growth after 3 days. Comment: Specimen Information Specimen Source: Peritoneal fluid Specimen Site: Abdominal Specimen Performing Laboratory Peritoneal fluid - Abdominal [facility] DEPARTMENT OF PATHOLOGY AND [address] [address] Gram stain (12/22/2016 5:45 PM) Component Value Ref Range Gram stain isolate Occasional WBC's No organisms seen Comment: Specimen Information Specimen Source: Peritoneal fluid Specimen Site: Abdominal Specimen Performing Laboratory Peritoneal fluid - Abdominal [facility] DEPARTMENT OF PATHOLOGY AND [address] [address] AFB stain (12/22/2016 5:45 PM) Component Value Ref Range AFB stain No acid fast bacilli (AFB) seen. Comment: Specimen Information Specimen Source: Peritoneal fluid Specimen Site: Abdominal Specimen Performing Laboratory Peritoneal fluid Abdominal [facility] DEPARTMENT OF PATHOLOGY [address] [address] Anaerobic culture (12/22/2016 5:45 PM) Component Value Ref Range Anaerobic culture isolate No anaerobic organisms isolated. Comment: Specimen Information Specimen Source: Peritoneal fluid Specimen Site: Abdominal Specimen Performing Laboratory Peritoneal fluid - Abdominal [facility] DEPARTMENT OF PATHOLOGY [address] [address] Cell count and differential, body fluid (12/22/2016 5:45 PM) Component Value Ref Range Misc fluid type Peritoneal Color, fluid Red Appearance, fluid Cloudy (A) RBC, fluid 22,000 /CMM Nucleated cells, fluid 512 /CMM Fluid mononuclear cell See Diff Neutrophils, fluid 45 % Lymphocytes, fluid 34 % Eosinophils, fluid 1 % Macrophages, fluid 20 % Specimen Performing Laboratory Fluid [facility] DEPARTMENT OF PATHOLOGY AND GENOMIC MEDICINE [address] [place] [address] Type and screen (12/22/2016 3:35 AM) Component Value Ref Range ABO grouping O Rh type POS Antibody screen (gel) NEG Specimen Performing Laboratory Blood [facility] DEPARTMENT OF PATHOLOGY AND [address] [address] Blood culture, aerobic & anaerobic (12/21/2016 3:00 PM)Only the most recent of2 resultswithin the time period is included. Component Value Ref Range Blood culture isolate No growth after 5 days of incubation. Comment: Specimen Information Specimen Source: Blood Specimen Site: Wrist, right Specimen Performing Laboratory Blood - Wrist, right [facility] DEPARTMENT OF PATHOLOGY AND GENOMIC MEDICINE [address] [place] [address] Echocardiogram complete w contrast and 3D if [...] ratio 0.64 Specimen Performing Laboratory [facility] [address] [place] [address] Narrative There is moderate left ventricular hypertrophy. Left Ventricular ejection fraction is 55 - 60%. No pericardial effusion Spectral Doppler shows impaired relaxation pattern of left ventricular diastolic filling. Stage I diastolic dysfunction with pseudonormal filling dynamics. ECG Pre/Post Op (12/21/2016 1:19 PM) Component Value Ref Range Ventricular rate 71 Atrial rate 71 FL interval 138 QRSD interval 72 QT interval 430 QTC interval 467 P axis 1 59 QRS axis 1 49 T wave axis -11 EKG impression Normal sinus rhythm-Septal infarct , age undetermined-T wave abnormality, consider inferior ischemia-Abnormal ECG-No previous ECGs available- Specimen Performing Laboratory [facility] MUSE [address] [place] [address] CT Abdomen Pelvis Wo Contrast (12/21/2016 9:43 AM) Specimen Performing Laboratory [facility] [address] [place] [address] Narrative EXAMINATION:CT ABDOMEN PELVIS WO CONTRAST CLINICAL [...] within the lower thoracic and lumbosacral spine. [id number] Procedure Note Hm Interface, Radiology Results Incoming [...] within the lower thoracic and lumbosacral spine. [id number] Prothrombin time with INR (12/21/2016 4:00 AM) Component Value Ref Range Prothrombin time 13.9 12.0 - 15.0 sec INR 1.1 Comment: The International Normalized Ratio (INR) is a therapeutic monitoring tool for patients who are stable on oral anticoagulant therapy. An INR of 2.0-3.0 is suggested for deep vein thrombosis/pulmonary embolism. Specimen Performing Laboratory Blood [facility] DEPARTMENT OF PATHOLOGY AND [facility] [address] [place] [address] Lactic acid level (12/21/2016 4:00 AM) Component Value Ref Range Lactic acid 0.7 0.5 - 2.2 mmol/L Specimen Performing Laboratory Plasma specimen [facility] DEPARTMENT OF PATHOLOGY AND [address] [address] Hemoglobin A1c (12/21/2016 4:00 AM) Component Value Ref Range Hemoglobin A1C 8.2 (H) 4.0 - 6.0 % Comment: Less than 6% - Goal of therapy for Type II Diabetes Less than 7%-Goal of therapy for Type I Diabetes Less than 8%-Acceptable control for Type I or Type II Diabetes Greater than 8%-Unacceptable control; action indicated. (ADA94) Specimen Performing Laboratory Blood [facility] PATHOLOGY AND [address] [address] Comprehensive metabolic panel (12/21/2016 4:00 AM) Component [...] 1.2 mg/dL Specimen Performing Laboratory Plasma specimen [facility] DEPARTMENT OF PATHOLOGY AND GENOMIC MEDICINE [address] [place] [address] after 07/16/2016 Insurance Payer Benefit Plan / Group Subscriber ID Type Phone Address MEDICARE MEDICARE PART A AND B xxxxxxxxxx Medicare [place], [place] [facility] [place] [employer] xxxxxxxxx O Home: [address] [place], [place] [phone] [place] [phone]
[2017-07-17] MEDS ORDERED: ONDANSETRON 4 MG/2 ML VIAL ONE (16:43)
--- NOTE | 2017-07-17 16:55 | RAD REPORT ---
EXAM DESCRIPTION: Aleksandr Single View07/17/2017 4:50 pm CLINICAL HISTORY: Chest pain COMPARISON: July 14, 2017 FINDINGS: The lungs appear clear of acute infiltrate. The heart is normal size IMPRESSION: No acute abnormalities displayed
--- NOTE | 2017-07-17 17:14 | RAD REPORT ---
EXAM DESCRIPTION: CT - Head Brain Wo Cont - 07/17/2017 4:59 pm CLINICAL HISTORY: Headaches and weakness COMPARISON: 2016 TECHNIQUE: Computed axial tomography of the head was obtained. IV contrast was not requested. All CT scans are performed using dose optimization technique as appropriate and may include automated exposure control or mA/KV adjustment according to patient size. FINDINGS: An intracranial bleed is not seen . The ventricles are normal in caliber. No extra-axial fluid collection is noted. A subtle low-density areas present within left cerebellar peduncle. The left aspect of the sphenoid sinus is opacified. The mastoids are clear. IMPRESSION: Subtle 1 centimeter low-density area within the left cerebellar peduncle. This is equivo aron for a small infarct. MRI is recommended
[2017-07-17 17:22] LABS: Absolute Monocytes 0.8 K/uL (0.1-1.3); Absolute Neutrophil 11.1 K/uL (1.8-8.0); Basophils % 0.6 % (0-1.3); Eosinophils % 0.5 % (0-4.4); Hematocrit 38.1 % (36.0-45.0); Lymphocytes % 14.5 % (15.3-44.8); MCH 30.7 pg (27.0-35.0); MCV 95.4 fL (80-100); Monocytes % 5.7 % (3.3-12.3)
[2017-07-17 17:27] LABS: Protime INR 1.02
[2017-07-17 17:37] LABS: Albumin 4.2 g/dL (3.2-5.5); Bilirubin Direct 0.2 mg/dL (0-0.2); Bilirubin Total 0.8 mg/dL (0.3-1.2); CKMB Creatine Kinase MB 1.9 ng/ml (0.3-4.0); Protein, Total 9.2 g/dL (6.0-8.3)
[2017-07-17 17:38] LABS: Potassium 5.8 mEq/L (3.6-5.0)
[2017-07-17] MEDS ORDERED: SOD POLYSTYREN SUL 15 GM/60 ML UCUP ONE (17:51)
[2017-07-17] MEDS ORDERED: ALBUTEROL 2.5 MG/3 ML NEB SOL ONE (17:51)
[2017-07-17] MEDS ORDERED: INSULIN -REGULAR HUMAN 50 UNIT/0.5 ML ML ONE (17:51)
[2017-07-17] MEDS ORDERED: D50W 25 GM/50 ML SYRINGE IV ONE (17:52)
[2017-07-17] MEDS ORDERED: NA CHLORIDE 0.9% 250 ML ONE (18:06)
[2017-07-17] MEDS ORDERED: ASPIRIN 81 MG CHEWABLE TABLET ONE (19:06)
[2017-07-17] MEDS ORDERED: FOLIC ACID 5 MG/ML VIAL ONE (19:08)
--- NOTE | 2017-07-17 19:14 | EDPHYS ---
Physician Documentation [facility] Name: Gabrielle White Age: 72 yrs Sex: Female : 1945 Arrival Date: 07/17/2017 Time: 15:41 Bed 7 Private MD: ED Physician Joaquin Crespo HPI: 07/17 16:45 This 72 yrs old Female presents to ER via EMS with complaints of General cp Weakness, Vomiting. 16:46 general weakness. Onset: The symptoms/episode began/occurred gradually. cp 16:46 Severity of symptoms: in the emergency department the symptoms are unchanged despite cp home interventions. 16:46 The patient has experienced similar episodes in the past, a few times. The patient has cp been recently seen at the [facility] Emergency Department, this week, for similar complaints. 16:46 Daughter reports patient has been having difficulty getting up out of bed due general cp weakness. Historical: - Allergies: 15:46 NKDA; ae1 - Home Meds: 16:21 Lasix 20 mg Oral tab 1 tab once daily for Hypertension [Active]; ropinirole 0.5 mg oral ae1 tab 1 tab at bedtime [Active]; amlodipine 5 mg tab 1 tab once daily [Active]; carvedilol 12.5 mg Oral tab 1 tab 2 times per day [Active]; - PMHx: 15:46 Anemia; CHF; Diabetes - IDDM; Hyperlipidemia; Hypertension; neuropathy; Pneumonia; ae1 RENAL FAILURE; Dialysis; - Immunization history:: Adult Immunizations not up to date. - Social history:: Smoking status: Patient/guardian denies using tobacco. ROS: 16:51 Constitutional: Negative for body aches, chills, fever, poor PO intake. cp 16:51 Eyes: Negative for injury, pain, redness, and discharge. cp 16:51 ENT: Negative for drainage from ear(s), ear pain, sore throat, difficulty swallowing, difficulty handling secretions. 16:51 Cardiovascular: Negative for chest pain, edema, palpitations. 16:51 Respiratory: Negative for cough, shortness of breath, wheezing. 16:51 Abdomen/GI: Positive for nausea, vomiting, Negative for abdominal pain, diarrhea, constipation, black/tarry stool, rectal bleeding. 16:51 Back: Negative for pain at rest, pain with movement, radiated pain. 16:51 MS/extremity: Negative for injury or acute deformity, decreased range of motion, deformity, pain, paresthesias, swelling. 16:51 Skin: Negative for cellulitis, rash. 16:51 Neuro: Positive for general weakness, Negative for altered mental status, headache, loss of consciousness, syncope, near syncope. 16:51 All other systems are negative. Exam: 17:00 Head/Face: Normocephalic, atraumatic. Eyes: Pupils equal round and reactive to light, cp extra-ocular motions intact. Lids and lashes normal. Conjunctiva and sclera are non-icteric and not injected. Cornea within normal limits. Periorbital areas with no swelling, redness, or edema. 17:00 Constitutional: The patient appears in no acute distress, alert, awake, non-diaphoretic, non-toxic, well developed, well nourished. 17:00 ENT: External ear(s): are unremarkable, Ear canal(s): are normal, clear, TM's: bulging, is not appreciated, bilaterally, dullness, bilaterally, erythema, is not appreciated, bilaterally, Nose: is normal, Mouth: Lips: dry, Oral mucosa: pink and intact, dry, Posterior pharynx: Airway: no evidence of obstruction, patent, swelling, is not appreciated, erythema, is not appreciated, exudate, is not appreciated, Voice: is normal. 17:00 Neck: ROM/movement: is normal, is supple, without pain, no range of motions limitations, no meningismus, no nuchal rigidity. 17:00 Chest/axilla: Inspection: normal, Palpation: is normal, no crepitus, no tenderness. 17:00 Cardiovascular: Rate: normal, Rhythm: regular, Pulses: Pulses are 2+ in right radial artery and left radial artery. Edema: is not appreciated, JVD: is not appreciated. 17:00 Respiratory: the patient does not display signs of respiratory distress, Respirations: cp normal, no use of accessory muscles, no retractions, no splinting, no tachypnea, labored breathing, is not present, Breath sounds: are clear throughout, no decreased breath sounds, no stridor, no wheezing. 17:00 Abdomen/GI: Inspection: obese Bowel sounds: active, all quadrants, Palpation: abdomen is soft and non-tender, in all quadrants, rebound tenderness, is not appreciated, voluntary guarding, is not appreciated, involuntary guarding, is not appreciated. 17:00 Back: pain, is absent, ROM is normal. 17:00 Skin: cellulitis, is not appreciated, no rash present. 17:00 Neuro: Orientation: to person, place \T\ time. Mentation: lucid, able to follow commands, Cerebellar function: Romberg testing is negative, normal finger to nose testing, Motor: moves all fours, general weakness w/o focal deficits, Sensation: no obvious gross deficits, Gait: not tested. 17:25 ECG was reviewed by the Attending Physician. cp Vital Signs: 15:41 BP 130 / 69; Pulse 69; Resp 13; Temp 98.(O); Pulse Ox 96% on R/A; Weight 74.84 kg (R); ae1 16:30 BP 122 / 73; Pulse 73; Resp 16; Pulse Ox 99% on R/A; ae1 18:12 BP 137 / 61; Pulse 73; Resp 18; Pulse Ox 100% on R/A; ae1 NIH Stroke Scale Scores: 17:00 NIHSS Score: 0 cp Kelvin Coma Score: 17:00 Eye Response: spontaneous(4). Verbal Response: oriented(5). Motor Response: obeys cp commands(6). Total: 15. MDM: 16:21 Patient medically screened. cp 17:00 ED course: VS noted. Patient not a candidate for tpa as onset of symptoms have been cp approximately 1 week ago. 17:00 Differential Diagnosis altered mental status, CVA, electrolyte abnormality, cardiac cp arrythmia. 18:00 Data reviewed: vital signs, nurses notes, lab test result(s), EKG, radiologic studies, cp CT scan, plain films. 18:47 Physician consultation: DR Tee, neurolist \T\[employer], recommends admittance to medicine and will consult on patient. 07/17 16:30 Order name: Basic Metabolic Panel; Complete Time: 17:42 07/17 17:42 Interpretation: Normal except: GLUC 276; K 5.8; CL 92; BUN 78; GFR 3. cp 07/17 16:30 Order name: BNP; Complete Time: 18:07 cp 07/17 16:30 Order name: CBC with Diff; Complete Time: 17:26 cp 07/17 17:26 Interpretation: Normal except: WBC 14.1; ROSETTA% 78.7; LYM% 14.5; NEUT A 11.1. cp 05/18 16:30 Order name: Ckmb; Complete Time: 17:42 cp 05/18 16:30 Order name: CPK; Complete Time: 17:42 cp 05/18 16:30 Order name: LFT's; Complete Time: 17:42 cp 05/18 18:08 Interpretation: Normal except: TP 9.2; GLOB 5.0; A/G 0.8. cp 0518 16:30 Order name: Magnesium; Complete Time: 17:42 cp 05/18 17:42 Interpretation: Abnormal: MG 3.0. cp 0518 16:30 Order name: PT-INR; Complete Time: 17:38 cp 0518 16:30 Order name: Ptt, Activated; Complete Time: 17:38 cp 0518 16:30 Order name: Troponin (emerg Dept Use Only); Complete Time: 17:38 cp 18 16:30 Order name: XRAY Chest (1 view); Complete Time: 17:26 cp 18 20:43 Order name: Glucose, Ancillary Testing EDMS 05 20:43 Order name: Glucose, Ancillary Testing EDMS 18 16:30 Order name: EKG; Complete Time: 16:30 cp 18 16:30 Order name: Cardiac monitoring; Complete Time: 16:37 cp /18 16:30 Order name: EKG - Nurse/Tech; Complete Time: 18:09 cp 05/18 16:43 Order name: CT Head Brain wo Cont; Complete Time: 17:26 cp 0518 16:30 Order name: IV Saline Lock; Complete Time: 16:37 cp 05/18 16:30 Order name: Labs collected and sent; Complete Time: 16:53 cp 05/18 16:30 Order name: O2 Per Protocol; Complete Time: 16:38 cp 05/18 16:30 Order name: O2 Sat Monitoring; Complete Time: 16:38 cp 05/18 16:30 Order name: Misc. Order: may have ice chips; Complete Time: 18:09 cp 05/18 16:33 Order name: Accucheck Blood Glucose; Complete Time: 16:37 cp 05/18 18:28 Order name: Cath; Complete Time: 18:28 ae1 EC:25 Rate is 68 beats/min. Rhythm is regular. TN interval is normal. QRS interval is normal. cp QT interval is normal. T waves are Inverted in leads I, aVL. No ST changes noted. Interpreted by me. Reviewed by me. Administered Medications: 17:40 Drug: Zofran 4 mg Route: IVP; Site: left antecubital; ae1 19:03 Follow up: Response: Nausea is decreased ae1 17:52 Drug: Albuterol 2.5 mg Route: Inhalation; ae1 17:56 Drug: D50W 25 ml Route: IVP; Site: left antecubital; ae1 20:55 Follow up: Response: No adverse reaction tl2 17:59 Drug: Insulin Regular Human 10 units {Co-Signature: aa5 (Giovanna Barboza RN).} Route: ae1 IVP; Site: left antecubital; 19:13 Follow up: Response: Other; FSBS 227 ae1 18:06 Drug: NS 0.9% 250 ml Route: IV; Rate: bolus; Site: left antecubital; ae1 19:08 Follow up: IV Status: Completed infusion ae1 18:08 Drug: Kayexalate 30 grams Route: PO; ae1 20:55 Follow up: Response: No adverse reaction tl2 18:25 Drug: Albuterol 2.5 mg Route: Inhalation; ae1 18:55 Drug: Albuterol 2.5 mg Route: Inhalation; ae1 19:13 Drug: Aspirin Chewable Tablet 81 mg Route: PO; ae1 20:55 Follow up: Response: No adverse reaction tl2 19:13 Drug: foLIC Acid 1 mg Route: IVPB; Site: left antecubital; ae1 20:56 Not Given (pt transferred): Zofran 4 mg IVP once; over 2 minutes tl2 Point of Care Testing: Blood Glucose: 15:41 Blood Glucose: 250 mg/dL; ae1 19:15 Blood Glucose: 227 mg/dL; ae1 Ranges: Critical Glucose Levels:Adult <50 mg/dl or >400 mg/dl <40 mg/dl or >180 mg/dl Disposition: 07/18 18:44 Co-signature as Attending Physician, Joaquin Crespo MD. Disposition: 07/17/17 19:14 Transfer ordered to [facility]. Diagnosis are Cerebral infarction, Hyperkalemia. - Reason for transfer: Higher level of care. - Accepting physician is Dereck Fisher. - Condition is Stable. - Problem is new. - Symptoms are unchanged. NIH Stroke Scale - NIH Stroke Score Date: 07/17/2017 Time: 17:00 Total Score = 0 1a. Level of Consciousness (LOC) - 0(Alert) 1b. Level of Consciousness (LOC) (Year \T\ Age) - 0(Both) 1c. LOC Commands (Open \T\ Closes Eyes/Motor Electrician) - 0(Both) 2. Best Gaze (Lateral Gaze Paresis) - 0(Normal) 3. Visual Field Loss - 0(No visual loss) 4. Facial Palsy - 0(Normal) 5a. Left Arm: Motor (10-second hold) - 0(No drift) 5b. Right Arm: Motor (10-second hold) - 0(No drift) 6a. Left Leg: Motor (5-second hold - always test supine) - 0(No drift) 6b. Right Leg: Motor (5-second hold - always test supine) - 0(No drift) 7. Limb Ataxia (finger/nose \T\ heel/jacobo - test with eyes open) - 0(Absent) 8. Sensory Loss (pinprick arms/legs/face) - 0(Normal) 9. Best Language: Aphasia (description/naming/reading) - 0(No aphasia) 10. Dysarthria (speech clarity - read or repeat words) - 0(Normal) 11. Extinction and Inattention (visual/tactile/auditory/spatial/personal) - 0(No abnormality) Initials: cp Signatures: Dispatcher [employer] EDAL Milan Guillermo PA PA cp Ysabel Vaughn RN RN tl2 Bruce Milian RN RN ae1 Joaquin Crespo MD MD gs Audri Calderon RN aa5 Corrections: (The following items were deleted from the chart) 07/17 17:39 17:29 MR STROKE PROTOCOL+MRI.RAD.BRZ ordered. EDAL EDMS 17:58 17:39 MRA Head Wo Cont ordered. EDAL EDMS 17:58 17:39 Brain Wo Cont ordered. EDAL EDMS 18:25 15:52 Constitutional: Negative for body aches, chills, fever, poor PO intake, cpcp 18:25 15:52 Eyes: Negative for injury, pain, redness, and discharge, cp cp 18:25 15:52 ENT: Negative for drainage from ear(s), ear pain, sore throat, difficulty cp swallowing, difficulty handling secretions, cp 18:25 15:52 Cardiovascular: Negative for chest pain, edema, palpitations, cp cp 18:25 15:52 Respiratory: Negative for cough, shortness of breath, wheezing, cp cp 18:25 15:52 Abdomen/GI: Positive for nausea, vomiting, Negative for diarrhea, cp constipation, black/tarry stool, rectal bleeding, cp 18:25 15:52 Back: Negative for pain at rest, pain with movement, radiated pain, cp cp 18:25 15:52 Skin: Negative for cellulitis, rash, cp cp 18:25 15:52 MS/extremity: Negative for injury or acute deformity, decreased range of cp motion, deformity, pain, paresthesias, cp 18:25 15:52 Neuro: Positive for general weakness, Negative for altered mental status, cp headache, syncope, near syncope, cp 18:25 15:52 All other systems are negative, cp cp 20:55 16:30 Urine Dipstick-Ancillary ordered. cp tl2 21:01 19:14 07/17/2017 19:14 Transfer ordered to [facility]. tl2 Diagnosis is Cerebral infarction; Hyperkalemia. Reason for transfer: Higher level of care. Accepting physician is Dereck Fisher. Condition is Stable. Problem is new. Symptoms are unchanged. cp
--- NOTE | 2017-07-17 19:14 | ER ---
Nurse's Notes [facility] Name: Gabrielle White Age: 72 yrs Sex: Female : 1945 Arrival Date: 07/17/2017 Time: 15:41 Bed 7 Private MD: Diagnosis: Cerebral infarction;Hyperkalemia Presentation: 07/17 15:43 Presenting complaint: EMS states: EMS states patient was seen at the hospital the ae1 previous week for weakness and still reports generalized weakness. Patient states she has been vomiting for the past few days. Transition of care: patient was not received from another setting of care. Onset of symptoms was July 14, 2017. Initial Sepsis Screen: Does the patient meet any 2 criteria? No. Patient's initial sepsis screen is negative. Does the patient have a suspected source of infection? No. Patient's initial sepsis screen is negative. Care prior to arrival: Glucose check: 260 V/S 117/80. 15:43 Method Of Arrival: EMS: [facility] ae1 15:43 Acuity: JESUS 3 ae1 Triage Assessment: 17:01 General: Appears in no apparent distress. uncomfortable, Behavior is cooperative. ae1 General: Appears Behavior is. Pain: Denies pain. EENT: No signs and/or symptoms were reported regarding the EENT system. Oral mucosa is moist. Poor dentition noted. Neuro: Level of Consciousness is awake, alert, obeys commands, Oriented to person, place. Cardiovascular: Patient's skin is warm and dry. Respiratory: Airway is patent Respiratory effort is even, unlabored, Respiratory pattern is regular, Breath sounds are clear bilaterally. GI: Reports nausea, vomiting. : No signs and/or symptoms were reported regarding the genitourinary system. Derm: Skin is normal. Musculoskeletal: No signs and/or symptoms reported regarding the musculoskeletal system. Reports Generalized weakness. Historical: - Allergies: 15:46 NKDA; ae1 - Home Meds: 16:21 Lasix 20 mg Oral tab 1 tab once daily for Hypertension [Active]; ropinirole 0.5 mg oral ae1 tab 1 tab at bedtime [Active]; amlodipine 5 mg tab 1 tab once daily [Active]; carvedilol 12.5 mg Oral tab 1 tab 2 times per day [Active]; - PMHx: 15:46 Anemia; CHF; Diabetes - IDDM; Hyperlipidemia; Hypertension; neuropathy; Pneumonia; ae1 RENAL FAILURE; Dialysis; - Immunization history:: Adult Immunizations not up to date. - Social history:: Smoking status: Patient/guardian denies using tobacco. Screenin:43 Nutritional screening: No deficits noted. ae1 17:00 Abuse screen: Denies threats or abuse. Tuberculosis screening: No symptoms or risk ae1 factors identified. Fall Risk No fall in past 12 months (0 pts). Secondary diagnosis (15 points) impaired mobility, IV access (20 points). Ambulatory Aid- Crutches/Cane/Walker (15 pts). Gait- Impaired (20 pts.). Mental Status- Oriented to own ability (0 pts). Assessment: 17:04 Reassessment: Patient states she would like to wait to take the nausea medication at ae1 this time. 19:14 Reassessment: Patient appears in no apparent distress at this time. Patient and/or ae1 family updated on plan of care and expected duration. Pain level reassessed. Patient denies pain at this time. Patient states feeling better. 19:50 Reassessment: Patient appears in no apparent distress at this time. Pt given ice chips, tl2 report called to nurse at [facility]. Vital Signs: 15:41 BP 130 / 69; Pulse 69; Resp 13; Temp 98.(O); Pulse Ox 96% on R/A; Weight 74.84 kg (R); ae1 16:30 BP 122 / 73; Pulse 73; Resp 16; Pulse Ox 99% on R/A; ae1 18:12 BP 137 / 61; Pulse 73; Resp 18; Pulse Ox 100% on R/A; ae1 [place] Coma Score: 17:00 Eye Response: spontaneous(4). Verbal Response: oriented(5). Motor Response: obeys cp commands(6). Total: 15. NIH Stroke Scale Scores: 17:00 NIHSS Score: 0 cp ED Course: 15:41 Patient arrived in ED. ae1 15:45 Triage completed. ae1 15:46 Arm band placed on right wrist. ae1 16:03 Bruce Milian, GERARDO is Primary Nurse. ae1 16:21 Milan Guillermo PA is PHCP. cp 16:21 Joaquin Crespo MD is Attending Physician. cp 16:45 X-ray completed. Portable x-ray completed in exam room. Patient tolerated procedure bb2 well. 16:46 XRAY Chest (1 view) In Process Unspecified. EDMS 16:[address] 16:[address] ne 16:59 CT Head Brain wo Cont In Process Unspecified. EDMS 16:59 CT completed. Patient tolerated procedure well. Patient moved back from CT. ne 17:00 Bed in low position. Call light in reach. Side rails up X2. Adult w/ patient. Cardiac ae1 monitor on. Pulse ox on. NIBP on. Warm blanket given. 17:00 Inserted saline lock: 22 gauge in left antecubital area, using aseptic technique. Blood ae1 collected. 17:36 EKG done, by remediation technician. reviewed by Joaquin Crespo MD. at1 17:38 Notified Nurse Practitioner and/or Physician Leather Repairer of a critical lab result(s), aa5 Potassium 5.8 and Creatine 12.35. 18:25 Straight cath inserted, using sterile technique, 15 FR. No urine output. ae1 18:28 attempted transfer to [facility], was told by mrs Baeza that they had no beds at this time. 18:29 attempted transfer to [facility], was told that they are on saturation and bd have no beds at this time,spoke with ivania bergeron. 18:30 attempted transfer to [facility]. coordinator will check on bed status and bd call me back. 19:33 Primary Nurse role handed off by Bruce Milian, RN rg2 19:50 No provider procedures requiring assistance completed. Patient transferred, IV remains tl2 in place. Administered Medications: 17:40 Drug: Zofran 4 mg Route: IVP; Site: left antecubital; ae1 19:03 Follow up: Response: Nausea is decreased ae1 17:52 Drug: Albuterol 2.5 mg Route: Inhalation; ae1 17:56 Drug: D50W 25 ml Route: IVP; Site: left antecubital; ae1 20:55 Follow up: Response: No adverse reaction tl2 17:59 Drug: Insulin Regular Human 10 units {Co-Signature: aa5 (Giovanna Barboza RN).} Route: ae1 IVP; Site: left antecubital; 19:13 Follow up: Response: Other; FSBS 227 ae1 18:06 Drug: NS 0.9% 250 ml Route: IV; Rate: bolus; Site: left antecubital; ae1 19:08 Follow up: IV Status: Completed infusion ae1 18:08 Drug: Kayexalate 30 grams Route: PO; ae1 20:55 Follow up: Response: No adverse reaction tl2 18:25 Drug: Albuterol 2.5 mg Route: Inhalation; ae1 18:55 Drug: Albuterol 2.5 mg Route: Inhalation; ae1 19:13 Drug: Aspirin Chewable Tablet 81 mg Route: PO; ae1 20:55 Follow up: Response: No adverse reaction tl2 19:13 Drug: foLIC Acid 1 mg Route: IVPB; Site: left antecubital; ae1 20:56 Not Given (pt transferred): Zofran 4 mg IVP once; over 2 minutes tl2 Point of Care Testing: Blood Glucose: 15:41 Blood Glucose: 250 mg/dL; ae1 19:15 Blood Glucose: 227 mg/dL; ae1 Ranges: Intake: Outcome: 19:14 ER care complete, transfer ordered by . cp 19:50 Transferred by ground EMS to [facility], Transfer form completed. tl2 19:50 Condition: stable 19:50 Discharge instructions given to patient, family, Instructed on the need for transfer. 21:01 Patient left the ED. tl2 NIH Stroke Scale - NIH Stroke Score Date: 07/17/2017 Time: 17:00 Total Score = 0 1a. Level of Consciousness (LOC) - 0(Alert) 1b. Level of Consciousness (LOC) (Year \T\ Age) - 0(Both) 1c. LOC Commands (Open \T\ Closes Eyes/Talent Acquisition Program Manager) - 0(Both) 2. Best Gaze (Lateral Gaze Paresis) - 0(Normal) 3. Visual Field Loss - 0(No visual loss) 4. Facial Palsy - 0(Normal) 5a. Left Arm: Motor (10-second hold) - 0(No drift) 5b. Right Arm: Motor (10-second hold) - 0(No drift) 6a. Left Leg: Motor (5-second hold - always test supine) - 0(No drift) 6b. Right Leg: Motor (5-second hold - always test supine) - 0(No drift) 7. Limb Ataxia (finger/nose \T\ heel/jacobo - test with eyes open) - 0(Absent) 8. Sensory Loss (pinprick arms/legs/face) - 0(Normal) 9. Best Language: Aphasia (description/naming/reading) - 0(No aphasia) 10. Dysarthria (speech clarity - read or repeat words) - 0(Normal) 11. Extinction and Inattention (visual/tactile/auditory/spatial/personal) - 0(No abnormality) Initials: cp Signatures: Dispatcher [employer] EDMS Giselle Peralta [place] rg2 Giovanna Barboza, RN RN aa5 Ila oden, frame stripper EKG Tat1 Ailin Ly Corey, PA PA cp Ysabel Vaughn RN RN tl2 Bruce Milian RN RN ae1 Chandana Zuluaga Brittany bb2 Giovanna Barboza RN aa5
--- NOTE | 2017-07-17 19:47 | EKG ---
Test Date: 2017-07-17 Test Time: 17:22:06 Manager Icu: RONI MEASUREMENT RESULTS: Intervals: Rate: 68 RI: 144 QRSD: 88 QT: 440 QTc: 467 Winston: P: 82 RI: 144 QRS: 43 T: 104 INTERPRETIVE STATEMENTS: Normal sinus rhythm T wave abnormality, consider lateral ischemia Abnormal ECG Compared to ECG 07/14/2017 02:42:05 T-wave abnormality now present Possible ischemia now present Electronically Signed On 07-17-17 19:47:05 CDT by Elvin Burciaga
[2017-07-17 21:17] VITALS: TEMP 98
[2017-07-17 21:19] VITALS: BP 137/61; O2SAT 100
== END 2017-07-17 21:01 | disposition short-term general hospital (02) ==
LOC: ER 15:33
DX: I63.9 Cerebral infarction, unspecified (principal); E87.5 Hyperkalemia; I12.0 Hypertensive chronic kidney disease with stage 5 chronic kidney disease or end stage renal disease; N18.6 End stage renal disease; Z99.2 Dependence on renal dialysis; R29.700 NIHSS score 0; E11.9 Type 2 diabetes mellitus without complications; I50.9 Heart failure, unspecified
CPT/HCPCS: 36415; 51702; 70450; 71045; 80048; 80076; 82550; 82553; 82962 ×2; 83735; 83880; 84484; 85025; 85610; 85730; 93005; 96365; 96375; 99285; J2405; 96361; 96374

== ENCOUNTER 2017-09-07 14:37 | Emergency (ER) | payer OTHER ==
--- OUTSIDE RECORDS SUMMARY | 2017-09-07 14:40 | XMS REPORT | Clinical Summary ---
:1945 Author Organization [facility] Address [address] [place] [address] Care Team Providers Name Role Phone Asked, No Pcp Primary Care Provider Unavailable Allergies No Known Allergies Current Medications Prescription Sig. Disp. Refills Start Date End Date Status amLODIPine Take 5 mg by 3 09/25/2016 Active (NORVASC) 5 mg mouth daily. tablet furosemide (LASIX) Take 20 mg by 3 11/11/2016 Active 40 mg tablet mouth 2 (two) times a day. omeprazole Take 40 mg by 0 11/20/2016 Active (PriLOSEC) 40 MG mouth daily. capsule RENVELA 800 mg Take 800 mg by 3 11/19/2016 Active tablet mouth 3 (three) times a day with meals. rOPINIRole Take 0.5 mg by 11 11/11/2016 [...] 1 0 11/13/2016 Active application topically daily. calcitriol Take 0.25 mcg by Active (ROCALTROL) 0.25 mouth daily. MCG capsule ampicillin Take 500 mg by Active (PRINCIPEN) 500 MG mouth 4 (four) capsule times a day. carvedilol (COREG) Take 12.5 mg by 3 11/05/2016 Discontinued 12.5 MG tablet mouth daily. 7 losartan (COZAAR) Take 50 mg by 3 11/11/2016 Discontinued 50 MG tablet mouth daily. 8 traMADol (ULTRAM) Take 50 mg by 1 11/23/2016 Discontinued 50 mg tablet mouth every 12 8 (twelve) hours as needed for pain. for pain ciprofloxacin HCl Take 250 mg by 0 [...] (two) times a day for 10 days. carvedilol (COREG) Take 12.5 mg by Discontinued 12.5 MG tablet mouth 2 (two) 8 times a day with meals. carvedilol (COREG) Take 1 tablet 60 tablet 0 07/20/2017 3.125 MG tablet (3.125 mg total) 8 by mouth 2 (two) times a day for 30 days. atorvastatin Take 1 tablet 30 tablet 0 07/20/2017 (LIPITOR) 80 MG (80 mg total) by 8 tablet mouth nightly for 30 days. aspirin 81 mg Chew 1 tablet 30 tablet 0 07/20/2017 chewable tablet (81 mg total) 8 daily for 30 days. polyethylene Take 17 g by 30 packet 0 07/20/2017 glycol (MIRALAX) mouth daily for 8 17 gram packet 30 days. docusate sodium Take 1 capsule 60 capsule 0 07/20/2017 (COLACE) 50 MG (50 mg total) by 8 capsule mouth 2 (two) times a day for 30 days. Active Problems Problem Noted Date Leukocytosis 07/18/2017 HTN (hypertension) 07/18/2017 HLD (hyperlipidemia) 07/18/2017 Ischemic stroke 07/17/2017 Peritoneal dialysis catheter dysfunction 12/21/2016 Anemia in chronic kidney disease 12/21/2016 Infection 12/21/2016 Encounters Date Type Specialty Care Team Description 08/16/2017 Refill Internal Medicine Oriaku, Audra, MD 07/17/2017 - Hospital Encounter Neurology Yosvany Fisher, Ischemic stroke ( Primary Dx); 07/20/2017 Peritoneal dialysis catheter dysfunction, initial encounter ; Anemia in stage 5 chronic kidney disease, not on chronic dialysis; Infection 07/17/2017 Procedure Pass Neurology 07/17/2017 Procedure Pass Neurology 07/17/2017 Procedure Pass Neurology 12/22/2016 Anesthesia Event General Surgery Jamee Clayton CRNA 12/22/2016 Procedure Pass General Surgery 12/22/2016 Surgery General Surgery ELLIOT Jain MD LAPAROSCOPY WITH REPOSITIONING OF PERITONEAL DIALYSIS CATHETER 12/21/2016 - Hospital Encounter General Internal Kaelyn Asma, Peritonitis (Primary Dx); 12/25/2016 Medicine Peritoneal dialysis catheter dysfunction, initial encounter 12/19/2016 Transcribe Orders Radiology Jarret, Petty Ibarra MD unspecified site, unspecified type (Primary Dx) after 09/06/2016 Social History Tobacco Use Types Packs/Day Years Used Date Never Smoker Smokeless Tobacco: Never Used Alcohol Use Drinks/Week oz/Week Comments No Sex Assigned at Date Recorded Not on file Last Filed Vital Signs Vital Sign Reading Time Taken Blood Pressure 165/72 07/20/2017 5:02 PM CDT Pulse 72 07/20/2017 5:02 PM CDT Temperature 36.3 C (97.4 F) 07/20/2017 5:02 PM CDT Respiratory Rate 16 07/20/2017 5:02 PM CDT Oxygen Saturation 96% 07/20/2017 5:02 PM CDT Inhaled Oxygen Concentration - - [...] INFLUENZA VACCINE 09/30/2017 Implants Implanted Type Area Salesforce Consultant Device Expiration Model / Identifier Date Serial / Lot Catheter Cv Powerline Dlmn Al 6fr - [id number] Surgical N/A: N/A BARD ACCESS 04/29/2021 [id number] / Implanted: 12/23/2016 (Quantity not on file) Implants; SYSTEMS / Expanders; [id number] Extenders; Surgical Wires Procedures Procedure Name Priority Date/Time Associated Comments Diagnosis POC GLUCOSE Routine 07/20/2017 5:00 Results for this PM CDT procedure are in the results section. LACTIC ACID LEVEL Timed 07/20/2017 12:00 Results for this PM CDT procedure are in the results section. POC GLUCOSE Routine 07/20/2017 11:52 Results for this AM CDT procedure are in the results section. ECHOCARDIOGRAM 2D Routine 07/20/2017 9:37 Results for this COMPLETE W MMODE AM CDT procedure are in SPECTRAL COLOR DOPPLER the results (82435) section. ECG 12-LEAD STAT 07/20/2017 8:22 Results for this AM CDT procedure are in the results section. TROPONIN STAT 07/20/2017 7:26 Results for this AM CDT procedure are in the results section. POC GLUCOSE Routine 07/20/2017 7:14 Results for this AM CDT procedure are in the results section. PHOSPHORUS LEVEL Routine 07/20/2017 4:00 Results for this AM CDT procedure are in the results section. MAGNESIUM LEVEL Routine 07/20/2017 4:00 Results for this AM CDT procedure are in the results section. ESTIMATED GFR Routine 07/20/2017 4:00 Results for this AM CDT procedure are in the results section. HC COMPLETE BLD COUNT Routine 07/20/2017 4:00 Results for this W/AUTO DIFF AM CDT procedure are in the results section. LACTIC ACID LEVEL Routine 07/20/2017 4:00 Results for this AM CDT procedure are in the results section. BASIC METABOLIC PANEL Routine 07/20/2017 4:00 Results for this AM CDT procedure are in the results section. POC GLUCOSE Routine 07/19/2017 9:32 Results for this PM CDT procedure are in the results section. POC GLUCOSE Routine 07/19/2017 4:09 Results for this PM CDT procedure are in the results section. POC GLUCOSE Routine 07/19/2017 11:18 Results for this AM CDT procedure are in the results section. LACTIC ACID LEVEL Routine 07/19/2017 10:56 Results for this AM CDT procedure are in the results section. GRAM STAIN ONLY Routine 07/19/2017 10:30 Results for this AM CDT procedure are in the results section. CELL COUNT AND Routine 07/19/2017 10:03 Results for this DIFFERENTIAL, BODY AM CDT procedure are in FLUID the results section. BLOOD CULTURE, AEROBIC Routine 07/19/2017 10:00 Results for this & ANAEROBIC AM CDT procedure are in the results section. POC GLUCOSE Routine 07/19/2017 7:45 Results for this AM CDT procedure are in the results section. HEPATITIS B SURFACE Routine 07/19/2017 6:44 Results for this ANTIGEN AM CDT procedure are in the results section. ESTIMATED GFR Routine 07/19/2017 5:51 Results for this AM CDT procedure are in the results section. LACTIC ACID LEVEL Routine 07/19/2017 5:51 Results for this AM CDT procedure are in the results section. BASIC METABOLIC PANEL Routine 07/19/2017 5:51 Results for this AM CDT procedure are in the results section. HC COMPLETE BLD COUNT Routine 07/19/2017 5:51 Results for this W/AUTO DIFF AM CDT procedure are in the results section. ECG 12-LEAD Routine 07/18/2017 10:46 Results for this PM CDT procedure are in the results section. POC GLUCOSE Routine 07/18/2017 8:59 Results for this PM CDT procedure are in the results section. POC GLUCOSE Routine 07/18/2017 4:07 Results for this PM CDT procedure are in the results section. POC GLUCOSE Routine 07/18/2017 1:37 Results for this PM CDT procedure are in the results section. LACTIC ACID LEVEL STAT 07/18/2017 1:03 Results for this PM CDT procedure are in the results section. POC GLUCOSE Routine 07/18/2017 11:48 Results for this AM CDT procedure are in the results section. XR CHEST 2 VW Routine 07/18/2017 11:12 Results for this AM CDT procedure are in the results section. MRA NECK WO CONTRAST STAT 07/18/2017 10:25 Results for this AM CDT procedure are in the results section. MRA HEAD WO CONTRAST STAT 07/18/2017 10:19 Results for this AM CDT procedure are in the results section. MRI BRAIN WO CONTRAST STAT 07/18/2017 9:52 Results for this AM CDT procedure are in the results section. POC GLUCOSE Routine 07/18/2017 7:44 Results for this AM CDT procedure are in the results section. BLOOD CULTURE, AEROBIC Routine 07/18/2017 5:53 Results for this & ANAEROBIC AM CDT procedure are in the results section. BLOOD CULTURE, AEROBIC Routine 07/18/2017 5:53 Results for this & ANAEROBIC AM CDT procedure are in the results section. NICK Routine 07/18/2017 5:48 Results for this AM CDT procedure are in the results section. CREATINE KINASE, TOTAL Routine 07/18/2017 5:48 Results for this (CPK) AM CDT procedure are in the results section. ESTIMATED GFR Routine 07/18/2017 5:48 Results for this AM CDT procedure are in the results section. PHOSPHORUS LEVEL Routine 07/18/2017 5:48 Results for this AM CDT procedure are in the results section. MAGNESIUM LEVEL Routine 07/18/2017 5:48 Results for this AM CDT procedure are in the results section. BASIC METABOLIC PANEL Routine 07/18/2017 5:48 Results for this AM CDT procedure are in the results section. HC COMPLETE BLD COUNT Routine 07/18/2017 5:48 Results for this W/AUTO DIFF AM CDT procedure are in the results section. ESTIMATED GFR Routine 07/18/2017 12:10 Results for this AM CDT procedure are in the results section. C-REACTIVE PROTEIN Routine 07/18/2017 12:10 Results for this AM CDT procedure are in the results section. SEDIMENTATION RATE Routine 07/18/2017 12:10 Results for this AM CDT procedure are in the results section. HOMOCYSTINE, PLASMA Routine 07/18/2017 12:10 Results for this AM CDT procedure are in the results section. FOLATE LEVEL Routine 07/18/2017 12:10 Results for this AM CDT procedure are in the results section. VITAMIN B12 LEVEL Routine 07/18/2017 12:10 Results for this AM CDT procedure are in the results section. COMPREHENSIVE METABOLIC Routine 07/18/2017 12:10 Results for this PANEL AM CDT procedure are in the results section. LIPID PANEL Routine 07/18/2017 12:10 Results for this AM CDT procedure are in the results section. PHOSPHORUS LEVEL Routine 07/18/2017 12:10 Results for this AM CDT procedure are in the results section. MAGNESIUM LEVEL Routine 07/18/2017 12:10 Results for this AM CDT procedure are in the results section. T4, FREE Routine 07/18/2017 12:10 Results for this AM CDT procedure are in the results section. THYROID STIMULATING Routine 07/18/2017 12:10 Results for this HORMONE AM CDT procedure are in the results section. LACTIC ACID LEVEL Routine 07/18/2017 12:10 Results for this AM CDT procedure are in the results section. HEMOGLOBIN A1C Routine 07/18/2017 12:10 Results for this AM CDT procedure are in the results section. PROTHROMBIN TIME WITH Routine 07/18/2017 12:10 Results for this INR AM CDT procedure are in the results section. HC COMPLETE BLD COUNT Routine 07/18/2017 12:10 Results for this W/AUTO DIFF AM CDT procedure are in the results section. POC GLUCOSE Routine 07/17/2017 10:19 Results for this PM CDT procedure are in the results section. IR ENDOVASCULAR CONSULT Routine 12/25/2016 2:09 Results for this PM CDT procedure are in the results section. POC GLUCOSE Routine 12/25/2016 11:36 Results for this AM CDT procedure are in the results section. POC GLUCOSE Routine 12/25/2016 7:53 Results for this AM CDT procedure are in the results section. ESTIMATED GFR Routine 12/25/2016 6:00 Results for this AM CDT procedure are in the results section. HC COMPLETE BLD COUNT Routine 12/25/2016 6:00 Results for this W/AUTO DIFF AM CDT procedure are in the results section. BASIC METABOLIC PANEL Routine 12/25/2016 6:00 Results for this AM CDT procedure are in the results section. POC GLUCOSE Routine 12/24/2016 9:38 Results for this PM CDT procedure are in the results section. POC GLUCOSE Routine 12/24/2016 4:42 Results for this PM CDT procedure are in the results section. POC GLUCOSE Routine 12/24/2016 11:47 Results for this AM CDT procedure are in the results section. POC GLUCOSE Routine 12/24/2016 7:29 Results for this AM CDT procedure are in the results section. POC GLUCOSE Routine 12/24/2016 6:01 Results for this AM CDT procedure are in the results section. C-REACTIVE PROTEIN Routine 12/24/2016 5:39 Results for this AM CDT procedure are in the results section. SEDIMENTATION RATE Routine 12/24/2016 5:39 Results for this AM CDT procedure are in the results section. HEPATITIS B SURFACE Routine 12/24/2016 5:39 Results for this ANTIBODY AM CDT procedure are in the results section. HEPATITIS B SURFACE AB, Routine 12/24/2016 5:39 Results for this QUANTITATIVE AM CDT procedure are in the results section. HEPATITIS B SURFACE Routine 12/24/2016 5:39 Results for this ANTIGEN AM CDT procedure are in the results section. POC GLUCOSE Routine 12/24/2016 5:33 Results for this AM CDT procedure are in the results section. POC GLUCOSE Routine 12/24/2016 12:53 Results for this AM CDT procedure are in the results section. POC GLUCOSE Routine 12/23/2016 8:27 Results for this PM CDT procedure are in the results section. POC GLUCOSE Routine 12/23/2016 4:42 Results for this PM CDT procedure are in the results section. POC GLUCOSE Routine 12/23/2016 12:03 Results for this PM CDT procedure are in the results section. HC US GUIDED VASCULAR Routine 12/23/2016 10:43 Results for this ACCESS AM CDT procedure are in the results section. HC CVL TUNNELED INS WO Routine 12/23/2016 10:43 Results for this PORT 5 YR OR > AM CDT procedure are in the results section. POC GLUCOSE Routine 12/23/2016 8:10 Results for this AM CDT procedure are in the results section. ESTIMATED GFR Routine 12/23/2016 3:55 Results for this AM CDT procedure are in the results section. HC COMPLETE BLD COUNT Routine 12/23/2016 3:55 Results for this W/AUTO DIFF AM CDT procedure are in the results section. BASIC METABOLIC PANEL Routine 12/23/2016 3:55 Results for this AM CDT procedure are in the results section. VANCOMYCIN LEVEL, Timed 12/23/2016 3:55 Results for this TROUGH AM CDT procedure are in the results section. POC GLUCOSE Routine 12/22/2016 8:49 Results for this PM CDT procedure are in the results section. FUNGUS CULTURE Routine 12/22/2016 6:45 Results for this PM CDT procedure are in the results section. AFB CULTURE Routine 12/22/2016 6:45 Results for this PM CDT procedure are in the results section. CELL COUNT AND Routine 12/22/2016 5:45 Results for this DIFFERENTIAL, BODY PM CDT procedure are in FLUID the results section. FUNGUS SMEAR Routine 12/22/2016 5:45 Results for this PM CDT procedure are in the results section. GRAM STAIN Routine 12/22/2016 5:45 Results for this PM CDT procedure are in the results section. AFB STAIN Routine 12/22/2016 5:45 Results for this PM CDT procedure are in the results section. ANAEROBIC CULTURE Routine 12/22/2016 5:45 Results for this PM CDT procedure are in the results section. AEROBIC CULTURE Routine 12/22/2016 5:45 Results for this PM CDT procedure are in the results section. POC GLUCOSE Routine 12/22/2016 5:28 Results for this PM CDT procedure are in the results section. POC GLUCOSE Routine 12/22/2016 4:10 Results for this PM CDT procedure are in the results section. ANESTHESIA INTUBATION Routine 12/22/2016 2:32 PM CDT Procedure Note - Pancho Miranda Jr., WAN SUPPORT SPECIALIST - 12/22/2016 2:31 PM CDT Airway Date/Time: 12/22/2016 2:20 PM Performed by: PANCHO MIRANDA JR Authorized by: LESLIE PAREDES Difficult Airway: No Resident/WAN SUPPORT SPECIALIST: PANCHO MIRANDA JR Performed by: resident/WAN SUPPORT SPECIALIST Preoxygenated with 100% O2: Yes C-spine Precautions [...] No Number of Attempts at Approach: 1 POC GLUCOSE Routine 12/22/2016 12:43 PM CDT POC GLUCOSE Routine 12/22/2016 9:00 AM CDT ESTIMATED GFR Routine 12/22/2016 3:35 AM CDT HC COMPLETE BLD COUNT W/AUTO Routine 12/22/2016 3:35 AM CDT Results for this DIFF procedure are in the results section. TYPE AND SCREEN Routine 12/22/2016 3:35 AM CDT BASIC METABOLIC PANEL Routine 12/22/2016 3:35 AM CDT POC GLUCOSE Routine 12/22/2016 3:15 AM CDT POC GLUCOSE Routine 12/21/2016 8:22 PM CDT POC GLUCOSE Routine 12/21/2016 5:05 PM CDT BLOOD CULTURE, AEROBIC & Routine 12/21/2016 3:00 PM CDT Results for this ANAEROBIC procedure are in the results section. BLOOD CULTURE, AEROBIC & Routine 12/21/2016 3:00 PM CDT Results for this ANAEROBIC procedure are in the results section. ECHOCARDIOGRAM 2D COMPLETE W STAT 12/21/2016 1:36 PM CDT Results for this MMODE SPECTRAL COLOR DOPPLER procedure are in the (54362) results section. POC GLUCOSE Routine 12/21/2016 1:25 PM CDT ECG PRE/POST OP STAT 12/21/2016 1:[address] ABDOMEN PELVIS WO Routine 12/21/2016 9:43 AM CDT Results for this CONTRAST procedure are in the results section. POC GLUCOSE Routine 12/21/2016 9:14 AM CDT CONSULT TO OSTOMY CARE NURSE Routine 12/21/2016 4:43 AM CDT ESTIMATED GFR Routine 12/21/2016 4:00 AM CDT LACTIC ACID LEVEL Routine 12/21/2016 4:00 AM CDT HEMOGLOBIN A1C Routine 12/21/2016 4:00 AM CDT COMPREHENSIVE METABOLIC Routine 12/21/2016 4:00 AM CDT Results for this PANEL procedure are in the results section. PROTHROMBIN TIME WITH INR Routine 12/21/2016 4:00 AM CDT HC COMPLETE BLD COUNT W/AUTO Routine 12/21/2016 4:00 AM CDT Results for this DIFF procedure are in the results section. POC GLUCOSE Routine 12/21/2016 3:37 AM CDT after 09/06/2016 Results POC glucose (07/20/2017 5:00 PM)Only the most recent of37 resultswithin the time period is included. POC glucose 172 (H) 65 - 99 mg/dL [facility] DEPARTMENT OF PATHOLOGY AND Comment: GENOMIC MEDICINE [facility] Notified RN Meter ID: [id number] Attending Anesthesiologist: Jose Maria Spann Performing Organization Address [facility] Phone Number [facility] DEPARTMENT OF PATHOLOGY AND [address] [place] [address] Lactic acid level (07/20/2017 12:00 PM)Only the most recent of7 resultswithin the time period is included. Lactic acid 1.6 0.5 - 2.2 mmol/L [facility] DEPARTMENT OF PATHOLOGY AND [facility] Specimen Blood Performing Organization Address [facility] Phone Number [facility] DEPARTMENT OF PATHOLOGY AND [address] [place] [address] Echocardiogram complete w contrast and 3D if needed (07/20/2017 9:37 AM) Narrative Performed At [facility] Echocardiography Report [address] [place] [address].Name:JESSE WHITE.ID:[id number] .Date: 07/20/2017 Refer.MD:YOSVAYN FISHER Exam Time: 8:46:00 AMStudy Type:Routine Echo Height:59inWeight: 182lb BSA: 1.77 m2 DOBAge:1945,72Y Sex: FEMALEBP:93/58 HR:64 bpm Sonogrphr: CHRISS Regan/ Aba Hernández MD Pat. Stat.:[facility] Status:Final Echo Event ID:[id number] Order ID:[id number] Reason for Study:Stoke Eval Procedures:2D Echo, Colorflow Doppler, Intravenous Definity Contrast Race:C SUMMARY: LV EF is hyperdynamic. RV systolic function is normal. FINDINGS: LV: LV size is small. Concentric left ventricular remodeling. LV EFis hyperdynamic. Overall wall motion is hyperdynamic. EstimatedEF is >70%. RV: RV size is normal. RV systolic function is normal. LA: LA size is normal. RA: RA size is normal. AO: Aortic root diameter is normal. FELIPE: No pericardial effusion. AV: Mild thickening and calcification of AV leaflets. MV: Mild thickening and calcification of mitral leaflets. PV: No structural PV abnormalities noted. TV: No structural TV abnormalities noted. Baptiste: Diastolic dysfunction Grade I (Mild): Impaired relaxation withnormal LV filling pressures. Other:Insufficient TR jet to estimate PA systolic pressure. MEASUREMENTS: 2D Parasternal Long Maxwell LVOT 1.8 cmLA Ds3.1 cm LVIDd3.3 cmIndex1.8 cm/m Ao Rtd 2.8 cm Index1.6 cm/m LVIDs2.3 cmLV Isrl024.8 g(87-129) LV%fs 28.3 % LVM Index 70 g/m2 IVSd 1.2 cmRWT0.7 LVPWd1.2 cm LA Sng Plane LA Area 16.5 cm2(8.8-23.4) LA Vol44.6 ml Index25.2 ml/m LA LngAx 5.1 cm Signed 07/20/2017 06:13 PM Tiesha Patterson M.D. Procedure Note Interface, Radiology Results In - 07/20/2017 6:13 PM CDT Echocardiography Report [address] [place] [address] Pat.Name: JESSE WHITE Pat.ID: [id number] .Date: 07/20/2017 Refer.MD: YOSVANY FISHER Exam Time: 8:46:00 AM Study Type:Routine Echo Height: 59in Weight: 182lb BSA: 1.77 m2 Age: 11 1945,72Y Sex: FEMALE BP: 93/58 HR: 64 bpm Sonogrphr: CHRISS Regan/ Aba Hernández MD Pat. Stat.:Inpatient Room: [facility] Study Status:Final Echo Event ID:[id number] Order ID: [id number] Reason for Study:Stoke Eval Procedures:2D Echo, Colorflow Doppler, Intravenous Definity Contrast Race: C SUMMARY: LV EF is hyperdynamic. RV systolic function is normal. FINDINGS: LV: LV size is small. Concentric left ventricular remodeling. LV EF is hyperdynamic. Overall wall motion is hyperdynamic. Estimated EF is >70%. RV: RV size is normal. RV systolic function is normal. LA: LA size is normal. RA: RA size is normal. AO: Aortic root diameter is normal. FELIPE: No pericardial effusion. AV: Mild thickening and calcification of AV leaflets. MV: Mild thickening and calcification of mitral leaflets. PV: No structural PV abnormalities noted. TV: No structural TV abnormalities noted. Baptiste: Diastolic dysfunction Grade I (Mild): Impaired relaxation with normal LV filling pressures. Other: Insufficient TR jet to estimate PA systolic pressure. MEASUREMENTS: 2D Parasternal Long Maxwell LVOT 1.8 cm LA Ds 3.1 cm LVIDd 3.3 cm Index 1.8 cm/m Ao Rtd 2.8 cm Index 1.6 cm/m LVIDs 2.3 cm LV Mass 123.8 g (87-129) LV%fs 28.3 % LVM Index 70 g/m2 IVSd 1.2 cm RWT 0.7 LVPWd 1.2 cm LA Sng Plane LA Area 16.5 cm2 (8.8-23.4) LA Vol 44.6 ml Index 25.2 ml/m LA LngAx 5.1 cm Signed 07/20/2017 06:13 PM Tiesha Patterson M.D. Performing Organization Address [facility] HospitalSwapDrivemn Phone Number [facility] [address] [place] [address] ECG 12 lead (07/20/2017 8:22 AM)Only the most recent of2 resultswithin the time period is included. Ventricular rate 65 [facility]USE Atrial rate 65 [facility] W[place] interval 144 [facility] QRSD interval 82 [facility] QT interval 472 [facility] QTC interval 490 [facility] P axis 1 75 [facility] QRS axis 1 40 [facility] T wave axis 110 [facility] MUSE EKG impression Normal sinus rhythm-T wave abnormality, [facility] MUSE consider lateral ischemia-Abnormal ECG- Performing Organization Address [facility] Hospital[facility]mn Phone Number [facility] MUSE [address] [place] [address] Troponin (07/20/2017 7:26 AM) Troponin <0.30 0.00 - 0.30 ng/mL [facility] DEPARTMENT OF PATHOLOGY Comment: AND GENOMIC MEDICINE 0.30 - 1.49 ng/mlMay indicate increased risk of acute coronary syndrome. >=1.5 ng/mlConsistent with acute myocardial infarction. The diagnostic value of a single normal or non-diagnostic result is questionable.Serial samples at 2-6 hour intervals are required to rule out acute myocardial injury. Specimen Plasma specimen Performing Organization Address City/[facility] Hospitalcode Phone Number [facility] DEPARTMENT OF PATHOLOGY AND [address] [place] [address] LMN-1 [facility] Estimated GFR (07/20/2017 4:00 AM)Only the most recent of8 resultswithin the time period is included. GFR Non Af Amer 3 (A) mL/min/1.73 m2 [facility] DEPARTMENT OF PATHOLOGY AND GENOMIC MEDICINE GFR Af Amer 4 (A) mL/min/1.73 m2 [facility] DEPARTMENT OF Comment: PATHOLOGY AND GENOMIC Chronic kidney disease: <60 mL/min/1.73m2 MEDICINE Kidney failure: <15 mL/min/1.73m2 The estimated GFR is calculated from the IDMS-traceable Modification of Diet in Renal Disease Equation. The accuracy of the calculation is poor when the creatinine is normal. Calculated values >90 mL/min/1.73m2 are not reported. This equation has not been validated in children (<18 years), women, the elderly (>70 years), or ethnic groups other than Caucasians and Americans. Specimen Plasma specimen Performing Organization Address [facility] [facility] Hospitalcode Phone Number [facility] DEPARTMENT OF PATHOLOGY AND [address] [place] [address] CBC with platelet and differential (07/20/2017 4:00 AM)Only the most recent of8 resultswithin the time period is included. WBC 10.46 4.50 - 11.00 k/uL [facility] DEPARTMENT OF PATHOLOGY AND GENOMIC MEDICINE RBC 3.11 (L) 4.20 - 5.50 m/uL [facility] DEPARTMENT OF PATHOLOGY AND GENOMIC MEDICINE HGB 9.9 (L) 12.0 - 16.0 g/dL [facility] DEPARTMENT OF PATHOLOGY AND GENOMIC MEDICINE HCT 30.0 (L) 37.0 - 47.0 % [facility] DEPARTMENT OF PATHOLOGY AND GENOMIC MEDICINE MCV 96.5 82.0 - 100.0 fL [facility] DEPARTMENT OF PATHOLOGY AND GENOMIC MEDICINE MCH 31.8 27.0 - 34.0 pg [facility] DEPARTMENT OF PATHOLOGY AND GENOMIC MEDICINE MCHC 33.0 31.0 - 37.0 g/dL [facility] DEPARTMENT OF PATHOLOGY AND GENOMIC MEDICINE RDW - SD 44.5 37.0 - 55.0 fL [facility] DEPARTMENT OF PATHOLOGY AND GENOMIC MEDICINE MPV 12.0 8.8 - 13.2 fL [facility] DEPARTMENT OF PATHOLOGY AND GENOMIC MEDICINE Platelet count 229 150 - 400 k/uL [facility] DEPARTMENT OF PATHOLOGY AND GENOMIC MEDICINE Nucleated RBC 0.00 /100 WBC [facility] DEPARTMENT OF PATHOLOGY AND GENOMIC MEDICINE Neutrophils 71.6 (H) 39.0 - 69.0 % [facility] DEPARTMENT OF PATHOLOGY AND GENOMIC MEDICINE Lymphocytes 17.5 (L) 25.0 - 45.0 % [facility] DEPARTMENT OF PATHOLOGY AND GENOMIC MEDICINE Monocytes 7.1 0.0 - 10.0 % [facility] DEPARTMENT OF PATHOLOGY AND GENOMIC MEDICINE Eosinophils 2.7 0.0 - 5.0 % [facility] DEPARTMENT OF PATHOLOGY AND GENOMIC MEDICINE Basophils 0.5 0.0 - 1.0 % [facility] DEPARTMENT OF PATHOLOGY AND GENOMIC MEDICINE Immature granulocytes 0.6Comment: 0.0 - 1.0 % [facility] DEPARTMENT OF "Immature PATHOLOGY AND GENOMIC granulocytes" MEDICINE (promyelocytes, myelocytes, metamyelocytes) Specimen Blood Performing Organization Address City/[facility] Hospitalcode Phone Number [facility] DEPARTMENT OF PATHOLOGY AND [address] [place] [address] GENOMIC MEDICINE Phosphorus level (07/20/2017 4:00 AM)Only the most recent of3 resultswithin the time period is included. Phosphorus 7.7 (H) 2.4 - 4.5 mg/dL [facility] DEPARTMENT OF PATHOLOGY AND GENOMIC MEDICINE Specimen Plasma specimen Narrative Performed At MG and PHOS added per Rufina Ho/GERARDO in [facility] DEPARTMENT OF PATHOLOGY AND GENOMIC M6SW at 07/20/17 0730 by MLG. MEDICINE LACID RESULT CALLED TO AND READ BACK BY RUFINA GRADY/RINKU AT07/20/2017 07:32 BY AU Performing Organization Address City/[facility] Hospitalcode Phone Number [facility] DEPARTMENT OF PATHOLOGY AND [address] [place] [address] MEDICINE Magnesium level (07/20/2017 4:00 AM)Only the most recent of3 resultswithin the time period is included. Magnesium 2.6 (H) 1.6 - 2.4 mg/dL [facility] DEPARTMENT OF PATHOLOGY AND GENOMIC MEDICINE Specimen Plasma specimen Narrative Performed At MG and PHOS added per Rufina Ho/GERARDO in [facility] DEPARTMENT OF PATHOLOGY AND GENOMIC M6SW at 07/20/17 0730 by [facility]. MEDICINE LACID RESULT CALLED TO AND READ BACK BY RUFINA GRADY/M6SW AT07/20/2017 07:32 BY KELSIE Performing Organization Address City/[facility] Hospitalcode Phone Number [facility] DEPARTMENT OF PATHOLOGY AND [address] [place] [id number] GENOMIC MEDICINE Basic metabolic panel (07/20/2017 4:00 AM)Only the most recent of6 resultswithin the time period is included. Sodium 137 135 - 148 mEq/L [facility] DEPARTMENT OF PATHOLOGY AND GENOMIC MEDICINE Potassium 3.7 3.5 - 5.0 mEq/L [facility] DEPARTMENT OF PATHOLOGY AND GENOMIC MEDICINE Chloride 92 (L) 98 - 112 mEq/L [facility] DEPARTMENT OF PATHOLOGY AND GENOMIC MEDICINE CO2 19 (L) 24 - 31 mEq/L [facility] DEPARTMENT OF PATHOLOGY AND GENOMIC MEDICINE Anion gap 26@ANIO (H) 7 - 15 mEq/L [facility] DEPARTMENT OF PATHOLOGY AND GENOMIC MEDICINE BUN 60 (H) 8 - 23 mg/dL [facility] DEPARTMENT OF PATHOLOGY AND GENOMIC MEDICINE Creatinine 11.5 (H) 0.5 - 0.9 mg/dL [facility] DEPARTMENT OF PATHOLOGY AND GENOMIC MEDICINE Glucose 155 (H) 65 - 99 mg/dL [facility] DEPARTMENT OF PATHOLOGY AND GENOMIC MEDICINE Calcium 8.5 (L) 8.8 - 10.2 mg/dL [facility] DEPARTMENT OF PATHOLOGY AND GENOMIC MEDICINE Specimen Plasma specimen Performing Organization Address [facility] Hospitalcode Phone Number [facility] DEPARTMENT OF PATHOLOGY AND [address] [place] [id number] [facility] MEDIC[facility] Gram stain only (07/19/2017 10:30 AM) Gram stain result No WBC's or organisms seen [facility] DEPARTMENT OF PATHOLOGY Comment: AND GENOMIC MEDICINE Specimen Information Specimen Source: Peritoneal fluid Specimen Site: Peritoneal dialysis Specimen Peritoneal fluid - Peritoneal dialysis Performing Organization Address City/[facility]/Zipcode Phone Number [facility] DEPARTMENT OF PATHOLOGY AND [address] [place] [id number] MEDICINE Cell count and differential, body fluid (07/19/2017 10:03 AM)Only the most recent of2 resultswithin the time period is included. [facility] fluid type PD fluid [facility] DEPARTMENT OF PATHOLOGY AND GENOMIC MEDICINE Color, fluid Pale yellow [facility] DEPARTMENT OF PATHOLOGY AND GENOMIC MEDICINE Appearance, fluid Clear [facility] DEPARTMENT OF PATHOLOGY AND GENOMIC MEDICINE RBC, fluid SEE COMMENTComment: 1+ /CMM [facility] DEPARTMENT OF PATHOLOGY (0 - 500 RBC/CMM) AND GENOMIC MEDICINE Nucleated cells, fluid 27 /CMM [facility] DEPARTMENT OF PATHOLOGY AND GENOMIC MEDICINE Fluid mononuclear cell See Diff [facility] DEPARTMENT OF PATHOLOGY AND GENOMIC MEDICINE Neutrophils, fluid 9 % [facility] DEPARTMENT OF PATHOLOGY AND GENOMIC MEDICINE Lymphocytes, fluid 11 % [facility] DEPARTMENT OF PATHOLOGY AND GENOMIC MEDICINE Macrophages, fluid 80 % [facility] DEPARTMENT OF PATHOLOGY AND GENOMIC MEDICINE Specimen Fluid Performing Organization Address City/[facility] Phone Number [facility] DEPARTMENT OF PATHOLOGY AND [address] [place] [address] Blood culture, aerobic & anaerobic (07/19/2017 10:00 AM)Only the most recent of5 resultswithin the time period is included. Blood culture isolate No growth after 5 days of incubation. [facility] DEPARTMENT OF Comment: PATHOLOGY AND GENOMIC Specimen Information MEDICINE Specimen Source: Fluid Specimen Site: Peritoneal Specimen Peritoneal Performing Organization Address [facility] Phone Number [facility] DEPARTMENT OF PATHOLOGY AND [address] [place] [address] Hepatitis B surface antigen (07/19/2017 6:44 AM)Only the most recent of2 resultswithin the time period is included. Hepatitis B surface Ag Non-reactive Non-reactive [facility] DEPARTMENT OF PATHOLOGY AND GENOMIC MEDICINE Specimen Blood Performing Organization Address [facility] Phone Number [facility] DEPARTMENT OF PATHOLOGY AND [address] [place] [address] XR Chest 2 Vw (07/18/2017 11:12 AM) Narrative Performed At EXAMINATION:XR CHEST 2 VW [facility] CLINICAL HISTORY:leukocytosis COMPARISON:None. IMPRESSION: The cardiomediastinal silhouette and central vasculature are within normal limits. Atherosclerotic calcifications in the thoracic aorta which is tortuous. The lungs are clear. Degenerative changes in the spine. [id number] Procedure Note Hm Interface, Radiology Results Incoming - 07/18/2017 11:36 AM CDT EXAMINATION: XR CHEST 2 VW CLINICAL HISTORY: leukocytosis COMPARISON: None. IMPRESSION: The cardiomediastinal silhouette and central vasculature are within normal limits. Atherosclerotic calcifications in the thoracic aorta which is tortuous. The lungs are clear. Degenerative changes in the spine. [id number] Performing Organization Address [facility] Phone Number [facility] [address] [place] [address] MRA Neck Wo Contrast (07/18/2017 10:25 AM) Narrative Performed At EXAMINATION:[facility]:stroke eval COMPARISON: No previous angiogram for comparison. FINDINGS: Noncontrast 2-D and 3-D zrnf-bu-cppebm MRA of the neck is performed. Source images and three-dimensional reformats are provided. There is atherosclerotic stenosis of the left carotid bulb measuring 40% by NASCET criteria. Mild atherosclerotic irregularity is noted within the right carotid bulb, with 30 % stenosis by NASCET criteria. The vertebral arteries are patent. No vertebral artery stenosis or dissection is identified. IMPRESSION: Atherosclerotic changes in the carotid bulbs with mild stenosis. [facility]-[id number] Procedure Note [facility], Radiology Results Incoming - 07/18/2017 10:50 AM CDT EXAMINATION: MRA NECK WO CONTRAST CLINICAL HISTORY: stroke eval COMPARISON: No previous angiogram for comparison. FINDINGS: Noncontrast 2-D and 3-D [id number]-tu-[id number] MRA of the neck is performed. Source images and three-dimensional reformats are provided. There is atherosclerotic stenosis of the left carotid bulb measuring 40% by NASCET criteria. Mild atherosclerotic irregularity is noted within the right carotid bulb, with 30 % stenosis by NASCET criteria. The vertebral arteries are patent. No vertebral artery stenosis or dissection is identified. IMPRESSION: Atherosclerotic changes in the carotid bulbs with mild stenosis. [facility]-[id number] Performing Organization Address [facility] Phone Number [facility] [address] [place] [address] MRA Head Wo Contrast (07/18/2017 10:19 AM) Narrative Performed At EXAMINATION:[facility]:stroke eval COMPARISON: No previous angiogram. MRI brain exam dated 07/18/2017. FINDINGS: Noncontrast 3-D iqbh-yf-tojoyp MRA of the head is performed. Source images and three-dimensional reformats are provided. There is no proximal branch occlusion or high-grade stenosis. Minimal atherosclerotic narrowing is noted within the proximal right MCA M1 segment. Minimal atherosclerotic narrowing is noted within the left [employer] P2 segment proximally. There is an anterior communicating artery. No aneurysm or vascular malformation is identified. IMPRESSION: Minimal intracranial atherosclerotic changes without proximal branch occlusion or high-grade stenosis. [facility]-[id number] Procedure Note Interface, Radiology Results Incoming - 07/18/2017 10:27 AM CDT EXAMINATION: MRA HEAD WO CONTRAST CLINICAL HISTORY: stroke eval COMPARISON: No previous angiogram. MRI brain exam dated 07/18/2017. FINDINGS: Noncontrast 3-D ogtm-xc-ispuhc MRA of the head is performed. Source images and three-dimensional reformats are provided. There is no proximal branch occlusion or high-grade stenosis. Minimal atherosclerotic narrowing is noted within the proximal right MCA M1 segment. Minimal atherosclerotic narrowing is noted within the left [employer] P2 segment proximally. There is an anterior communicating artery. No aneurysm or vascular malformation is identified. IMPRESSION: Minimal intracranial atherosclerotic changes without proximal branch occlusion or high-grade stenosis. [facility]-[id number] Performing Organization Address City/[facility] Phone Number [facility] [address] [place] [address] MRI Brain Wo Contrast (07/18/2017 9:52 AM) Narrative Performed At EXAMINATION:MRI BRAIN WO CONTRAST [facility] CLINICAL HISTORY:stroke eval COMPARISON: None. FINDINGS: Noncontrast MRI of the brain is interpreted. Diffusion imaging demonstrates no evidence of recent infarct. Minimal nonspecific T2 FLAIR signal changes in the cerebral white matter likely reflect minimal chronic small vessel ischemic change. Mild age- appropriate involutional changes of the brain are otherwise noted. No extra-axial collection or mass effect is seen. No hemorrhage is identified. The major vascular flow-voids are preserved. IMPRESSION: No evidence of recent infarct or other acute intracranial abnormality. [facility]-[id number] Procedure Note [facility], Radiology Results Incoming - 07/18/2017 10:12 AM CDT EXAMINATION: MRI BRAIN WO CONTRAST CLINICAL HISTORY: stroke eval COMPARISON: None. FINDINGS: Noncontrast MRI of the brain is interpreted. Diffusion imaging demonstrates no evidence of recent infarct. Minimal nonspecific T2 FLAIR signal changes in the cerebral white matter likely reflect minimal chronic small vessel ischemic change. Mild age- appropriate involutional changes of the brain are otherwise noted. No extra-axial collection or mass effect is seen. No hemorrhage is identified. The major vascular flow-voids are preserved. IMPRESSION: No evidence of recent infarct or other acute intracranial abnormality. [facility]-[id number] Performing Organization Address [facility]/Zipcode Phone Number [facility] [address] [place] [address] NICK (07/18/2017 5:48 AM) NICK screen Negative Negative [facility] DEPARTMENT OF PATHOLOGY AND GENOMIC MEDICINE Specimen Blood Performing Organization Address [facility] Hospitalcode Phone Number [facility] DEPARTMENT OF PATHOLOGY AND [address] [place] [address] Creatine kinase, total (CPK) (07/18/2017 5:48 AM) Creatine kinase 54 26 - 192 U/L [facility] DEPARTMENT OF PATHOLOGY AND GENOMIC MEDICINE Specimen Plasma specimen Performing Organization Address [facility] Hospitalcomn Phone Number [facility] DEPARTMENT PATHOLOGY AND [address] [place] [address] Homocystine, plasma (07/18/2017 12:10 AM) Homocysteine 36.1 (H) 0.0 - 15.0 umol/L [facility] DEPARTMENT OF Comment: PATHOLOGY AND GENOMIC The risk for coronary vascular disease increases progressively MEDICINE with homocysteine concentration.A 3.4 times greater risk is associated with a homocysteine concentration of greater than 15.8 umol/L as compared to a concentration below 14.1 umol/L. Specimen Plasma specimen Performing Organization Address [facility] Phone Number [facility] DEPARTMENT OF PATHOLOGY AND [address] [place] [address] Sedimentation rate (07/18/2017 12:10 AM)Only the most recent of2 resultswithin the time period is included. Sedimentation rate 100 (H) 0 - 20 mm/hr [facility] DEPARTMENT OF PATHOLOGY AND GENOMIC MEDICINE Specimen Blood Performing Organization Address [facility] Phone Number [facility] DEPARTMENT OF PATHOLOGY AND [address] [place] [address] Prothrombin time with INR (07/18/2017 12:10 AM)Only the most recent of2 resultswithin the time period is included. Prothrombin time 15.3 (H) 12.0 - 15.0 sec [facility] DEPARTMENT OF PATHOLOGY AND GENOMIC MEDICINE INR 1.2 [facility] DEPARTMENT OF Comment: PATHOLOGY AND GENOMIC The International Normalized Ratio (INR) is a therapeutic MEDICINE monitoring tool for patients who are stable on oral anticoagulant therapy. An INR of 2.0-3.0 is suggested for deep vein thrombosis/pulmonary embolism. Specimen Blood Performing Organization Address [facility] Phone Number [facility] DEPARTMENT OF PATHOLOGY AND [address] [place] [address] C-reactive protein (07/18/2017 12:10 AM)Only the most recent of2 resultswithin the time period is included. CRP 0.63 (H) 0.00 - 0.50 mg/dL [facility] DEPARTMENT OF PATHOLOGY AND [facility] Specimen Plasma specimen Performing Organization Address [facility] Phone Number [facility] DEPARTMENT OF PATHOLOGY AND [address] [place] [address] Thyroid stimulating hormone (07/18/2017 12:10 AM) TSH 0.69 0.27 - 4.20 uIU/mL [facility] DEPARTMENT OF PATHOLOGY AND [facility] Specimen Blood Performing Organization Address [facility] Phone Number [facility] DEPARTMENT OF PATHOLOGY AND [address] [place] [address] T4, free (07/18/2017 12:10 AM) T4, free 1.3 0.9 - 1.7 ng/dL [facility] DEPARTMENT OF PATHOLOGY AND [facility] Specimen Blood Performing Organization Address [facility] Phone Number [facility] DEPARTMENT OF PATHOLOGY AND [address] [place] [address] Hemoglobin A1c (07/18/2017 12:10 AM)Only the most recent of2 resultswithin the time period is included. Hemoglobin A1C 10.3 (H) 4.0 - 5.6 % [facility] DEPARTMENT OF PATHOLOGY Comment: AND [facility] MEDIC[facility] HbA1c cutoffs for diagnosing diabetes: 4.0% - 5.6%=normal 5.7% - 6.4%=increased risk for diabetes (prediabetes) >=6.5%=diabetes Goals for glycemic control (ADA 2016) < 7.0%Target for non adults with diabetes. More or less stringent targets may be appropriate for individual patients. <7.5% Target for Children and adolescents with type 1 diabetes. Specimen Blood Performing Organization Address [facility] Phone Number [facility] DEPARTMENT OF PATHOLOGY AND [address] [place] [address] Folate level (07/18/2017 12:10 AM) Folate >20.0 4.8 - 24.2 ng/mL [facility] DEPARTMENT OF PATHOLOGY AND GENOMIC MEDICINE Specimen Serum Performing Organization Address City/[facility] Phone Number [facility] DEPARTMENT OF PATHOLOGY AND [address] [place] [address] [facility] Vitamin B12 level (07/18/2017 12:10 AM) Vitamin B12 659 211 - 946 pg/mL [facility] DEPARTMENT OF PATHOLOGY Comment: AND GENOMIC MEDICINE Significant overlap exists between normal and deficiency states. However, most patients with deficiencies will have Serum B12 <200 pg/mL. Specimen Serum Performing Organization Address [facility] Hospital[facility] Phone Number [facility] DEPARTMENT OF PATHOLOGY AND [address] [place] [address] [facility] Lipid panel (07/18/2017 12:10 AM) Cholesterol 222 (H) <200 mg/dL [facility] DEPARTMENT OF PATHOLOGY AND GENOMIC MEDICINE Triglycerides 360 (H) <150 mg/dL [facility] DEPARTMENT OF PATHOLOGY AND GENOMIC MEDICINE HDL cholesterol 30 (L) >40 mg/dL [facility] DEPARTMENT OF PATHOLOGY AND GENOMIC MEDICINE LDL cholesterol 139 (H)Comment: Result <100 mg/dL [facility] DEPARTMENT obtained by direct LDL PATHOLOGY AND GENOMIC measurement MEDICINE Lipid panel interpretation SeeBelow [facility] DEPARTMENT OF Comment: PATHOLOGY AND GENOMIC Total Cholesterol (mg/dL) MEDICINE <200 Desirable 276-911Bpraaufltj-kraz >=240High Triglycerides (mg/dL) <150 Normal 615-790Wmbcmopury-vgvs 200-499High >=500Very high HDL Cholesterol (mg/dL) <40Low (male) <40Low (female) LDL Cholesterol (mg/dL) <100 Optimal 100-129Near or above optimal 348-223Wlswpqiaxy-ztdl 160-189High >=190Very high Risk Catergories that modify LDL goals. Risk CatergoriesLDL goal (mg/dL) CHD and CHD risk equivalent<100 (10-year risk >20%) Multiple (2+) risk factors <130 (10-year risk=<20%) 0-1 risk factors <160 (<10-year risk) Defining levels of lipids in metabolic syndrome Triglycerides>=150 mg/dL HDL Cholesterol Men<40 mg/dL Women<40 mg/dL Non-HDL cholesterol is a second target for therapy in persons with high triglycerides (>=200 mg/dL) Specimen Blood Performing Organization Address City/[facility] Hospital[facility] Phone Number [facility] DEPARTMENT OF PATHOLOGY AND [address] [place] [address] [facility] Comprehensive metabolic panel (07/18/2017 12:10 AM)Only the most recent of2 resultswithin the time period is included. Sodium 137 135 - 148 mEq/L [facility] DEPARTMENT OF PATHOLOGY AND GENOMIC MEDICINE Potassium 5.4 (H) 3.5 - 5.0 mEq/L [facility] DEPARTMENT OF PATHOLOGY AND GENOMIC MEDICINE Chloride 89 (L) 98 - 112 mEq/L [facility] DEPARTMENT OF PATHOLOGY AND GENOMIC MEDICINE CO2 16 (L) 24 - 31 mEq/L [facility] DEPARTMENT OF PATHOLOGY AND GENOMIC MEDICINE Anion gap 32@ANIO (H) 7 - 15 mEq/L [facility] DEPARTMENT OF PATHOLOGY AND GENOMIC MEDICINE BUN 77 (H) 8 - 23 mg/dL [facility] DEPARTMENT OF PATHOLOGY AND GENOMIC MEDICINE Creatinine 12.6 (H) 0.5 - 0.9 mg/dL [facility] DEPARTMENT OF PATHOLOGY AND GENOMIC MEDICINE Glucose 189 (H) 65 - 99 mg/dL [facility] DEPARTMENT OF PATHOLOGY AND GENOMIC MEDICINE Calcium 9.3 8.8 - 10.2 mg/dL [facility] DEPARTMENT OF PATHOLOGY AND GENOMIC MEDICINE Protein 8.7 (H) 6.3 - 8.3 g/dL [facility] DEPARTMENT OF Comment: PATHOLOGY AND GENOMIC [place] 4.6-7.0 g/dL MEDICINE 1 week 4.4-7.6 g/dL 7 months-1year5.1-7.3 g/dL 1-2 years5.6-7.5 g/dL >3 years6.0-8.0 g/dL 18-150 6.3-8.3 g/dL Albumin 3.5 3.5 - 5.0 g/dL [facility] DEPARTMENT OF PATHOLOGY AND GENOMIC MEDICINE A/G ratio 0.7 0.7 - 3.8 [facility] DEPARTMENT OF PATHOLOGY AND GENOMIC MEDICINE Alkaline phosphatase 86 35 - 104 U/L [facility] DEPARTMENT OF PATHOLOGY AND GENOMIC MEDICINE AST 15 10 - 35 U/L [facility] DEPARTMENT OF PATHOLOGY AND GENOMIC MEDICINE ALT 15 5 - 50 U/L [facility] DEPARTMENT OF PATHOLOGY AND GENOMIC MEDICINE Total bilirubin 0.6 0.0 - 1.2 mg/dL [facility] DEPARTMENT OF PATHOLOGY AND GENOMIC MEDICINE Specimen Blood Performing Organization Address City/State/Zipcode Phone Number [facility] DEPARTMENT OF PATHOLOGY AND [address] [place] [address] [facility] IR Endovascular Consult (12/25/2016 2:09 PM) Narrative Performed At Performing Radiologist CASEY Judd MD Assistants None Anesthesia Type None. [...] tunneled central venous catheter, as described above. [facility]-[id number] Procedure Note Interface, Radiology Results Incoming - 12/25/2016 2:22 [...] tunneled central venous catheter, as described above. [facility]-[id number] Performing Organization Address City/State/Zipcode Phone Number CASEY [address] [place] [address] Hepatitis B surface Ab, quantitative (12/24/2016 5:39 AM) Hepatitis B surface Ab 16.24 IU/L [facility] Comment: The anti-HBs is greater than or [...] refer to MMWR February 21, 2005/Vol. 54(No. 16);03-24, and for healthcare workers refer to MMWR February 18, 2013/Vol. 62(No. 10);-. Reference Interval: anti-HBs 9.99 IU/L or less ....... Negative 10.00 IU/L or greater .... Positive Results greater than 1,000.00 IU/L are reported as greater than 1,000.00 IU/L. This assay should not be used for blood donor screening, associated re-entry protocols, or for screening Human Cell, Tissues and Cellular and Tissue-Based Products (HCT/P). Performed by [facility], [address] [place], [place] [id number] [email or web address], Fredrick Gonzalez MD - Lab. Director Specimen Serum Performing Organization Address [facility]/Zipcode Phone Number [facility] [address] [place] [phone] Hepatitis B surface antibody (12/24/2016 5:39 AM) Hepatitis B surface Ab Reactive (A) Non-reactive [facility] DEPARTMENT OF PATHOLOGY AND GENOMIC MEDICINE Specimen Blood Performing Organization Address City/State/Zipcode Phone Number [facility] DEPARTMENT OF PATHOLOGY AND [address] [place] [id number] LMN-1 [facility] IR Central Catheter Placement Us (12/23/2016 10:43 AM) Narrative Performed At Performing Radiologist CASEY Enriquez MD Assistants None. Anesthesia Type Intraservice [...] external jugular vein was patent. 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 [facility]-[id number] Procedure Note Hm Interface, Radiology Results Incoming [...] external jugular vein was patent. 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 [facility]-[id number] Performing Organization Address City/State/Zipcode Phone Number CASEY [address] [place] [address] IR Non Tunneled Central Line (12/23/2016 10:43 AM) Narrative Performed At Performing Radiologist CASEY Enriquez MD Assistants None. Anesthesia Type Intraservice [...] external jugular vein was patent. 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 [facility]-[id number] Procedure Note Hm Interface, Radiology Results Incoming [...] external jugular vein was patent. 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 [facility]-[id number] Performing Organization Address City/State/Zipcomn Phone Number CASEY [address] [place] [address] Vancomycin level, trough (12/23/2016 3:55 AM) Vancomycin, trough 24.9 (HH) 10.0 - 20.0 ug/mL [facility] DEPARTMENT OF Comment: PATHOLOGY AND GENOMIC Therapeutic Ranges: MEDICINE Peak30.0 - 40.0 ug/mL Cibhdj29.0 - 20.0 ug/mL Final results called to and read back by GERARDO MCCOY 12/23/2016 04:43 AR Specimen Blood Performing Organization Address City/[facility]/Zipcode Phone Number [facility] DEPARTMENT OF PATHOLOGY [address] [phone] AND GENOMIC MEDICINE AFB culture (12/22/2016 6:45 PM) AFB culture isolate No growth after 6 weeks of incubation. [facility] DEPARTMENT OF PATHOLOGY Comment: AND GENOMIC MEDICINE Specimen Information Specimen Source: Peritoneal fluid Specimen Site: Abdominal Specimen Peritoneal fluid - Abdominal Performing Organization Address [facility]/Zipcode Phone Number [facility] DEPARTMENT OF PATHOLOGY AND [address] [place] [address] GENOMIC MEDICINE Fungus culture (12/22/2016 6:45 PM) Fungus culture isolate No growth after 4 weeks of incubation. [facility] DEPARTMENT OF Comment: PATHOLOGY AND GENOMIC Specimen Information MEDICINE Specimen Source: Peritoneal fluid Specimen Site: Abdominal Specimen Peritoneal fluid - Abdominal Performing Organization Address [facility] Phone Number [facility] DEPARTMENT OF PATHOLOGY AND [address] [place] [address] GENOMIC MEDICINE Fungus smear (12/22/2016 5:45 PM) Fungus smear No fungi observed. [facility] DEPARTMENT OF PATHOLOGY Comment: AND GENOMIC MEDICINE Specimen Information Specimen Source: Peritoneal fluid Specimen Site: Abdominal Specimen Peritoneal fluid - Abdominal Performing Organization Address [facility] Phone Number [facility] DEPARTMENT OF PATHOLOGY AND [address] [place] [address] GENOMIC MEDICINE Aerobic culture (12/22/2016 5:45 PM) Aerobic culture isolate No growth after 3 days. [facility] DEPARTMENT OF Comment: PATHOLOGY AND GENOMIC Specimen Information MEDICINE Specimen Source: Peritoneal fluid Specimen Site: Abdominal Specimen Peritoneal fluid - Abdominal Performing Organization Address City/[facility] Phone Number [facility] DEPARTMENT OF PATHOLOGY AND [address] [place] [address] GENOMIC MEDICINE Gram stain (12/22/2016 5:45 PM) Gram stain isolate Occasional WBC's [facility] DEPARTMENT OF PATHOLOGY No organisms seen AND GENOMIC MEDICINE Comment: Specimen Information Specimen Source: Peritoneal fluid Specimen Site: Abdominal Specimen Peritoneal fluid - Abdominal Performing Organization Address City/[facility]/Zipcode Phone Number [facility] DEPARTMENT OF PATHOLOGY AND [address] [place] [address] GENOMIC MEDICINE AFB stain (12/22/2016 5:45 PM) AFB stain No acid fast bacilli (AFB) seen. [facility] DEPARTMENT OF PATHOLOGY AND Comment: GENOMIC MEDICINE Specimen Information Specimen Source: Peritoneal fluid Specimen Site: Abdominal Specimen Peritoneal fluid - Abdominal Performing Organization Address City/[facility]/Zipcode Phone Number [facility] DEPARTMENT OF PATHOLOGY AND [address] [place] [address] [facility] Anaerobic culture (12/22/2016 5:45 PM) Anaerobic culture No anaerobic organisms isolated. [facility] DEPARTMENT OF isolate Comment: PATHOLOGY AND GENOMIC Specimen Information MEDICINE Specimen Source: Peritoneal fluid Specimen Site: Abdominal Specimen Peritoneal fluid - Abdominal Performing Organization Address City/[facility]/Zipcode Phone Number [facility] DEPARTMENT OF PATHOLOGY AND [address] [place] [address] GENOMIC MEDICINE Type and screen (12/22/2016 3:35 AM) ABO grouping O [facility] DEPARTMENT OF PATHOLOGY AND GENOMIC MEDICINE Rh type POS [facility] DEPARTMENT OF PATHOLOGY AND GENOMIC MEDICINE Antibody screen (gel) NEG [facility] DEPARTMENT OF PATHOLOGY AND GENOMIC MEDICINE Specimen Blood Performing Organization Address City/[facility] Phone Number [facility] DEPARTMENT OF PATHOLOGY [address] [place] [address] AND LMN-1 MEDICINE Echocardiogram complete w contrast and 3D if needed (12/21/2016 1:36 PM) Ao Root Diameter 2.92 cm [facility] AoV Area, Vmax 4.61 cm2 [facility] AoV Area, VTI 6.10 cm2 [facility] AoV Mean PG 2.61 mmHg [facility] AoV Peak PG 9.31 mmHg [facility] AoV Vmax 1.53 m/s [facility] AoV VTI 0.23 m [facility] IVS,d 1.56 (A) 0.6 - 1.2 cm [facility] IVS/LVPW,2D 1.51 [facility] Left Atrium Dimension Anterior 3.12 cm [facility] LA Area d A4C 16.58 cm2 [facility] LV,d 3.87 cm [facility] LV EF,2D 64.82 % [facility] LV,s 2.73 cm [facility] LVOT area 4.08 cm2 [facility] LVOT Diam,S 2.28 cm [facility] LVOT Vmax 1.17 m/s [facility] LVOT VTI 0.34 m [facility] LVPWD,d 1.03 cm [facility] PV Pk Grad 1.93 mmHg [facility] PV VMAX 0.69 m/s [facility] RVOT Vmax 0.73 m/s [facility] TR Vpeak 2.34 mm/s [facility] MV E A ratio 0.64 mmHg [facility] TR pk grad 21.84 mmHg [facility] E wave decelartion time 388.38 msec [facility] MV Peak A Gio 1.09 m/s [facility] MV valve area p 1/2 method 1.95 cm2 [facility] MV Peak E Gio 0.70 m/s [facility] MV stenosis pressure 1/2 time 112.63 ms [facility] AV LVOT peak gradient 5.52 mmHg [facility] Ao Root Diameter 2.92 cm [facility] LV SYS VOL 27.82 ml [facility] LV BAPTISTE VOL 64.72 ml [facility] LV SV Teich 2D 36.90 ml [facility] LV Vol s Teich PSAX 27.82 ml [facility] RVOT pk grad 1.09 mmHg [facility] AoV Vmn 0.78 [facility] LV FS Teich 2D 29.40 [facility] MV AE ratio 1.55 [facility] LV FS Cube 2D 29.40 [facility] LVOT Vmn 0.85 [facility] Aov area Vmn 3.53 cm2 [facility] LA Vol d MOD A4C 44.94 ml [facility] LVOT mean grad 3.30 mmHg [facility] MAX Pred HR 147.10 [facility] 85 of MPHR 125.03 [facility] Calc MPHR 147.10 bpm [facility] LV SV Cube 2D 37.58 ml [facility] LV vol d cube 2D 57.98 ml [facility] LV vol s cube 2D 20.40 ml [facility] MV Decel slope 1.81 m/s2 [facility] Pred Exer Dur R1 6.51 [facility] Pred METS R1 5.22 [facility] Velocity Ratio (V1/V2) 0.76 m/s [facility] EF 57.01 % [facility] E/A ratio 0.64 [facility] Narrative Performed At There is moderate left ventricular hypertrophy. [facility] Left Ventricular ejection fraction is 55 - 60%. No pericardial effusion Spectral Doppler shows impaired relaxation pattern of left ventricular diastolic filling. Stage I diastolic dysfunction with pseudonormal filling dynamics. Performing Organization Address City/State/Zipcode Phone Number [facility] [address] [place] [address] ECG Pre/Post Op (12/21/2016 1:19 PM) Ventricular rate 71 [facility] Atrial rate 71 [facility] WV interval 138 [facility] QRSD interval 72 [facility] QT interval 430 [facility] QTC interval 467 [facility] P axis 1 59 [facility] QRS axis 1 49 [facility] T wave axis -11 [facility] EKG impression Normal sinus rhythm-Septal infarct , age [facility] MUSE undetermined-T wave abnormality, consider inferior ischemia-Abnormal ECG-No previous ECGs available- Performing Organization Address City/State/Zipcode Phone Number [facility] [place] [address] [place] [address] CT Abdomen Pelvis Wo Contrast (12/21/2016 9:43 AM) Narrative Performed At EXAMINATION:CT ABDOMEN PELVIS WO CONTRAST [facility] CLINICAL HISTORY:PERITONITIS PD CATHTER DYSFUNCTION TECHNIQUE: Multiple [...] within the lower thoracic and lumbosacral spine. [id number] Procedure Note Interface, Radiology Results Incoming - 12/21/2016 9:54 [...] within the lower thoracic and lumbosacral spine. [id number] Performing Organization Address City/State/Zipcode Phone Number [facility] [address] [place] [address] after 09/06/2016 Insurance Payer Benefit Plan / Group Subscriber ID Type Phone Address MEDICARE MEDICARE PART A AND B xxxxxxxxxx Medicare [place], [place] MEDICAID MEDICAID xxxxxxxxx Medicaid [phone] [address]
[2017-09-07] MEDS ORDERED: NA CHLORIDE 0.9% 1,000 ML ONE (15:55)
[2017-09-07 16:03] LABS: Absolute Lymphocytes (CBC) 1.5 K/uL (0.7-4.9); Absolute Monocytes 0.9 K/uL (0.1-1.3); Absolute Neutrophil 13.7 K/uL (1.8-8.0); Basophils % 0.7 % (0-1.3); Eosinophils % 1.2 % (0-4.4); Hematocrit 28.4 % (36.0-45.0); Lymphocytes % 9.2 % (15.3-44.8); MCH 31.3 pg (27.0-35.0); MCV 96.6 fL (80-100); MPV 8.3 fL (7.6-11.3); Monocytes % 5.6 % (3.3-12.3); RBC Red Blood Cell Count 2.94 M/uL (3.86-4.86)
--- NOTE | 2017-09-07 16:16 | RAD REPORT ---
EXAM DESCRIPTION: Aleksandr Single View09/07/2017 4:11 pm CLINICAL HISTORY: Chest pain COMPARISON: June 2017 FINDINGS: The lungs appear clear of acute infiltrate. The heart is normal size IMPRESSION: No acute abnormalities displayed
--- NOTE | 2017-09-07 16:19 | EKG ---
Test Date: 2017-09-07 Test Time: 15:17:53 Survey Interviewer: RONI/S MEASUREMENT RESULTS: Intervals: Rate: 96 CT: 132 QRSD: 80 QT: 394 QTc: 497 Carson: P: 64 CT: 132 QRS: 27 T: 81 INTERPRETIVE STATEMENTS: Normal sinus rhythm Prolonged QT Abnormal ECG Compared to ECG 07/17/2017 17:22:06 Prolonged QT interval now present T-wave abnormality no longer present Possible ischemia no longer present Electronically Signed On 09-07-17 16:19:36 CDT by Elvin Burciaga
[2017-09-07 16:21] LABS: Protime INR 1.09
--- NOTE | 2017-09-07 16:26 | RAD REPORT ---
EXAM DESCRIPTION: RAD - Tib Fib Right - 09/07/2017 4:18 pm CLINICAL HISTORY: Right leg pain FINDINGS: No fracture is seen The bones are osteoporotic. Vascular calcifications are seen. No bony destructive lesion is noted
[2017-09-07 16:40] LABS: Bilirubin Direct 0.2 mg/dL (0-0.2); Bilirubin Total 0.4 mg/dL (0.2-1.0); Potassium 4.8 mmol/L (3.5-5.1)
[2017-09-07 16:41] LABS: Albumin 2.4 g/dL (3.4-5.0)
--- NOTE | 2017-09-07 17:08 | RAD REPORT ---
EXAM DESCRIPTION: JOSEExmannie [facility] Ltd09/07/2017 4:50 pm CLINICAL HISTORY: Right leg pain and swelling. COMPARISON: None. FINDINGS: Right common femoral, superficial femoral, popliteal and right posterior tibial veins are compressible and demonstrate augmentation. Doppler demonstrates good flow. IMPRESSION: No evidence of deep venous thrombosis involving the right lower extremity.
[2017-09-07] MEDS ORDERED: VANCOMYCIN 1 GM/250 ML BAG ONE (18:53)
[2017-09-07] MEDS ORDERED: PIPER/TAZO/NS 2.25gm 2.25 GM/50 ML BAG ONE (18:54)
--- NOTE | 2017-09-07 20:57 | EDPHYS ---
Physician Documentation [facility] Name: Gabrielle White Age: 72 yrs Sex: Female : 1945 Arrival Date: 09/07/2017 Time: 14:40 Bed 3 Private MD: None, None ED Physician Joaquin Crespo HPI: 09/07 21:07 This 72 yrs old Female presents to ER via Wheelchair with complaints of Sores gs On Leg. 21:07 The patient presents with pain. The complaints affect the right jacobo. Onset: The gs symptoms/episode began/occurred 1 week(s) ago. Associated signs and symptoms: Pertinent positives: fever, hypotension. Severity of symptoms: At their worst the symptoms were moderate, in the emergency department the symptoms are actually worse. Historical: - Allergies: 14:50 NKDA; aa5 - PMHx: 14:50 Anemia; CHF; Diabetes - IDDM; Dialysis; Hyperlipidemia; Hypertension; neuropathy; aa5 Pneumonia; RENAL FAILURE; - Social history:: Smoking status: Patient/guardian denies using tobacco. - Ebola Screening: : No symptoms or risks identified at this time. ROS: 21:07 All other systems are negative. gs Exam: 21:07 Head/Face: Normocephalic, atraumatic. Eyes: Pupils equal round and reactive to light, gs extra-ocular motions intact. Lids and lashes normal. Conjunctiva and sclera are non-icteric and not injected. Cornea within normal limits. Periorbital areas with no swelling, redness, or edema. ENT: Nares patent. No nasal discharge, no septal abnormalities noted. Tympanic membranes are normal and external auditory canals are clear. Oropharynx with no redness, swelling, or masses, exudates, or evidence of obstruction, uvula midline. Mucous membranes moist. Neck: Trachea midline, no thyromegaly or masses palpated, and no cervical lymphadenopathy. Supple, full range of motion without nuchal rigidity, or vertebral point tenderness. No Meningismus. Chest/axilla: Normal chest wall appearance and motion. Nontender with no deformity. No lesions are appreciated. Cardiovascular: Regular rate and rhythm with a normal S1 and S2. No gallops, murmurs, or rubs. Normal PMI, no JVD. No pulse deficits. Respiratory: Lungs have equal breath sounds bilaterally, clear to auscultation and percussion. No rales, rhonchi or wheezes noted. No increased work of breathing, no retractions or nasal flaring. Abdomen/GI: Soft, non-tender, with normal bowel sounds. No distension or tympany. No guarding or rebound. No evidence of tenderness throughout. 21:07 Back: No spinal tenderness. No costovertebral tenderness. Full range of motion. Neuro: Awake and alert, GCS 15, oriented to person, place, time, and situation. Cranial nerves II-XII grossly intact. Motor strength 5/5 in all extremities. Sensory grossly intact. Cerebellar exam normal. Normal gait. 21:07 Constitutional: The patient appears alert, awake, in obvious distress, severely distressed. 21:07 Abdomen/GI: dialysis cath present. 21:07 Musculoskeletal/extremity: Extremities: noted in the right leg: severe tenderness over r tibia, some skin ulcers noted there, minimal cellulitis, leg continues to be tender along medial aspect of r thigh. 5x5cm tender nonfluctuant deep sub q mass tender, Pulses: are normal with no appreciated deficits. Vital Signs: 14:45 BP 78 / 59; Pulse 97; Resp 16 S; Temp 98.0(TE); Pulse Ox 97% on R/A; Weight 76.2 kg aa5 (R); Height 4 ft. 11 in. (149.86 cm) (R); Pain 10/10; 14:50 BP 83 / 50; aa5 15:30 BP 92 / 70; Pulse 97 MON; Resp 17 S; Pulse Ox 99% on R/A; sg 16:35 BP 100 / 50 Supine; Pulse 94; Resp 21; Pulse Ox 98% on R/A; Pain 6/10; sg 17:00 BP 157 / 73; Pulse 95; Resp 17; Pulse Ox 99% on R/A; sg 18:16 BP 168 / 84; Pulse 92; Resp 16; Pulse Ox 100% on R/A; jb1 19:20 BP 118 / 93; Pulse 90; Resp 18; Pulse Ox 97% on R/A; Pain 0/10; aa1 19:58 BP 133 / 63; Pulse 89; Resp 18; Pulse Ox 99% on R/A; Pain 0/10; aa1 21:24 BP 117 / 63; Pulse 90; Resp 20; Temp 98.2; Pulse Ox 99% on R/A; Pain 0/10; aa1 22:16 BP 144 / 68; Pulse 83; Resp 18; Pulse Ox 99% on R/A; Pain 0/10; aa1 14:45 Body Mass Index 33.93 (76.20 kg, 149.86 cm) aa5 MDM: 15:48 Patient medically screened. 21:07 Differential diagnosis: ddx dvt sepsis cellulitis osteomyelitis. Data reviewed: vital gs signs, nurses notes. Response to treatment: the patient's symptoms have markedly improved after treatment, bp normalized abx onboard. 09/07 15:50 Order name: Basic Metabolic Panel; Complete Time: 17:10 09/07 15:50 Order name: Blood Culture Adult (2) 09/07 15:50 Order name: CBC with Diff; Complete Time: 17:10 09/07 15:50 Order name: Lactate; Complete Time: 17:10 09/07 15:50 Order name: LFT's; Complete Time: 17:10 09/07 15:50 Order name: Lipase; Complete Time: 17:10 09/07 15:50 Order name: Procalcitonin; Complete Time: 17:10 09/07 15:50 Order name: Protime (+inr); Complete Time: 17:10 09/07 15:50 Order name: Troponin (emerg Dept Use Only); Complete Time: 17:10 09/07 15:50 Order name: Chest Single View XRAY; Complete Time: 17:10 09/07 15:50 Order name: Tib Fib Right XRAY; Complete Time: 17:10 09/07 15:50 Order name: US Extremity Venous Unilateral Ltd; Complete Time: 17:10 09/07 15:50 Order name: Accucheck; Complete Time: 17:55 09/07 15:50 Order name: Cardiac monitoring; Complete Time: 17:55 09/07 15:50 Order name: EKG - Nurse/Tech; Complete Time: 17:55 09/07 15:50 Order name: IV Saline Lock - Large Bore; Complete Time: 17:55 09/07 15:50 Order name: Labs collected and sent; Complete Time: 17:55 09/07 15:50 Order name: O2 Per Protocol; Complete Time: 17:55 09/07 15:50 Order name: O2 Sat Monitoring; Complete Time: 17:55 09/07 16:09 Order name: EKG Electrocardiogram EDMS Administered Medications: 16:00 Drug: NS 0.9% 1000 ml Route: IV; Rate: 1 bolus; Site: left forearm; 19:15 Follow up: IV Status: Completed infusion aa1 19:00 Drug: Zosyn 2.25 grams Route: IVPB; Infused Over: 60 mins; Site: left antecubital; aa1 19:31 Follow up: IV Status: Completed infusion aa1 19:32 Drug: vancoMYCIN 1 grams Route: IVPB; Infused Over: 2 hrs; Site: left antecubital; aa 21:29 Follow up: IV Status: Completed infusion [facility] Disposition: 09/07/17 20:[address] [facility]. Diagnosis are Sepsis, unspecified organism, Non-pressure chronic ulcer of unspecified part of right lower leg, Cellulitis, unspecified. - Reason for transfer: Higher level of care. - Accepting physician is tiburcio. - Condition is Stable. - Problem is new. - Symptoms have improved. Critical care time excluding procedures: 21:07 Critical care time: Bedside Care: 10 minutes, Consultation: 10 minutes, Family Intervention: 10 minutes. Total time: 30 minutes Signatures: Dispatcher [employer] EDMS Esteban Franklin RN RN sg Elizabeth Colon RN RN aa1 Giovanna Barboza RN RN aa5 Joaquin Crespo MD MD Corrections: (The following items were deleted from the chart) 22:15 15:50 Urine Dipstick-Ancillary ordered. [facility] 22:20 20:56 09/07/2017 20:[address] [facility]. Diagnosis is aa1 Sepsis, unspecified organism; Non-pressure chronic ulcer of unspecified part of right lower leg; Cellulitis, unspecified. Reason for transfer: Higher level of care. Accepting physician is tiburcio. Condition is Stable. Problem is new. Symptoms have improved.
--- NOTE | 2017-09-07 20:57 | ER ---
Nurse's Notes [facility] Name: Gabrielle White Age: 72 yrs Sex: Female : 1945 Arrival Date: 09/07/2017 Time: 14:40 Bed 3 Private MD: None, None Diagnosis: Sepsis, unspecified organism;Non-pressure chronic ulcer of unspecified part of right lower leg;Cellulitis, unspecified Presentation: 09/07 14:45 Presenting complaint: Patient states: right leg pain. Pt's daughter states "we missed aa5 her appointment with Dr. Baeza today about the wounds on her leg so they sent us here". 14:45 Transition of care: patient was not received from another setting of care. Onset of aa5 symptoms was September 07, 2017. Risk Assessment: Do you want to hurt yourself or someone else? Patient reports no desire to harm self or others. Initial Sepsis Screen: Does the patient meet any 2 criteria? Systolic BP < 90 mmHg. Does the patient have a suspected source of infection? No. Patient's initial sepsis screen is negative. Care prior to arrival: None. 14:45 Method Of Arrival: Wheelchair aa5 14:45 Acuity: JESUS 2 aa5 Historical: - Allergies: 14:50 NKDA; aa5 - PMHx: 14:50 Anemia; CHF; Diabetes - IDDM; Dialysis; Hyperlipidemia; Hypertension; neuropathy; aa5 Pneumonia; RENAL FAILURE; - Social history:: Smoking status: Patient/guardian denies using tobacco. - Ebola Screening: : No symptoms or risks identified at this time. Screenin:40 Abuse screen: Denies threats or abuse. Denies injuries from another. Nutritional sg screening: No deficits noted. Tuberculosis screening: No symptoms or risk factors identified. Never had TB. Fall Risk None identified. Assessment: 15:44 Reassessment: Patient appears in no apparent distress at this time. at bedside sg at this time evaluating pt at this time. 17:00 Reassessment: Patient appears in no apparent distress at this time. Patient and/or sg family updated on plan of care and expected duration. Pain level reassessed. at bedside re-evaluating pt at this time. 19:15 General: Appears in no apparent distress. comfortable, Behavior is calm, cooperative, aa1 appropriate for age. Pain: Complains of pain in right leg Pain currently is 0 out of 10 on a pain scale. at worst was 10 out of 10 on a pain scale. Neuro: Level of Consciousness is awake, alert, obeys commands, Speech is normal. Cardiovascular: Heart tones S1 S2 present. Respiratory: Airway is patent Respiratory effort is even, unlabored, Respiratory pattern is regular, symmetrical. GI: No signs and/or symptoms were reported involving the gastrointestinal system. : No signs and/or symptoms were reported regarding the genitourinary system. EENT: No signs and/or symptoms were reported regarding the EENT system. Derm: Skin is intact, is healthy with good turgor, has lesions on RLE. Musculoskeletal: Circulation, motion, and sensation intact. Capillary refill < 3 seconds. 20:15 Reassessment: Patient appears in no apparent distress at this time. No changes from aa1 previously documented assessment. Patient and/or family updated on plan of care and expected duration. Pain level reassessed. Awaiting transfer. Reassessment: Patient appears in no apparent distress at this time. No changes from previously documented assessment. Patient and/or family updated on plan of care and expected duration. Pain level reassessed. Attempted to call report to [facility] but was placed on hold with no answer. 21:37 Reassessment: Report given to Karoline Jha RN at [facility]. aa1 22:16 Reassessment: Patient appears in no apparent distress at this time. Patient is alert, aa1 oriented x 3, equal unlabored respirations, skin warm/dry/pink. [facility] present for transfer Patient denies pain at this time. Vital Signs: 14:45 BP 78 / 59; Pulse 97; Resp 16 S; Temp 98.0(TE); Pulse Ox 97% on R/A; Weight 76.2 kg aa5 (R); Height 4 ft. 11 in. (149.86 cm) (R); Pain 10/10; 14:50 BP 83 / 50; aa5 15:30 BP 92 / 70; Pulse 97 MON; Resp 17 S; Pulse Ox 99% on R/A; sg 16:35 BP 100 / 50 Supine; Pulse 94; Resp 21; Pulse Ox 98% on R/A; Pain 6/10; sg 17:00 BP 157 / 73; Pulse 95; Resp 17; Pulse Ox 99% on R/A; sg 18:16 BP 168 / 84; Pulse 92; Resp 16; Pulse Ox 100% on R/A; jb1 19:20 BP 118 / 93; Pulse 90; Resp 18; Pulse Ox 97% on R/A; Pain 0/10; aa1 19:58 BP 133 / 63; Pulse 89; Resp 18; Pulse Ox 99% on R/A; Pain 0/10; aa1 21:24 BP 117 / 63; Pulse 90; Resp 20; Temp 98.2; Pulse Ox 99% on R/A; Pain 0/10; aa1 22:16 BP 144 / 68; Pulse 83; Resp 18; Pulse Ox 99% on R/A; Pain 0/10; aa1 14:45 Body Mass Index 33.93 (76.20 kg, 149.86 cm) aa5 ED Course: 14:40 Patient arrived in ED. sb2 14:41 None, None is Private Physician. sb2 14:55 Arm band placed on Patient placed in an exam room, on a stretcher. aa5 15:15 Triage completed. aa5 15:20 Joaquin Crespo MD is Attending Physician. gs 15:34 EKG done, by floor tech. reviewed by Mando Gannon MD. sm3 15:34 Initial lab(s) drawn, by me, sent to lab. EKG done, by floor tech. reviewed by Joaquin Crespo MD. Inserted saline lock: 22 gauge in left forearm, using aseptic technique. Blood collected. 15:44 Esteban Farnklin, RN is Primary Nurse. sg 16:09 Chest Single View XRAY In Process Unspecified. EDMS 16:09 Tib Fib Right XRAY In Process Unspecified. EDMS 16:49 US Extremity Venous Unilateral Ltd In Process Unspecified. EDMS 16:50 Ultrasound completed. Patient tolerated well. Note: us done portable/bedside. lc3 19:09 Primary Nurse role handed off by Esteban Franklin, RN sg 19:10 Report received from Esteban Franklin RN. aa1 19:15 Patient has correct armband on for positive identification. Bed in low position. Call aa1 light in reach. Side rails up X2. Adult w/ patient. night monitor on. Pulse ox on. NIBP on. Warm blanket given. 19:15 No provider procedures requiring assistance completed. Patient transferred, IV remains aa1 in place. 19:20 Elizabeth Colon, RN is Primary Nurse. aa1 Administered Medications: 16:00 Drug: NS 0.9% 1000 ml Route: IV; Rate: 1 bolus; Site: left forearm; 19:15 Follow up: IV Status: Completed infusion aa1 19:00 Drug: Zosyn 2.25 grams Route: IVPB; Infused Over: 60 mins; Site: left antecubital; aa1 19:31 Follow up: IV Status: Completed infusion aa1 19:32 Drug: vancoMYCIN 1 grams Route: IVPB; Infused Over: 2 hrs; Site: left antecubital; aa1 21:29 Follow up: IV Status: Completed infusion aa1 Outcome: 20:56 ER care complete, transfer ordered by . 22:16 Transferred by ground EMS to [facility], Transfer form completed. aa1 X-rays sent w/ patient. 22:16 Condition: stable 22:16 Discharge instructions given to patient, family, Instructed on the need for transfer, Demonstrated understanding of instructions. 22:20 Patient left the ED. aa1 Signatures: Dispatcher [employer] EDMS Aba Mcgrath jb1 Esteban Franklin RN RN Elizabeth Colon RN RN aa1 Goivanna Barboza RN RN aa5 Charlee Chisholm Gregory, MD MD Isamar Ruby 2 Cassi Gallegos 3
[2017-09-07 22:32] VITALS: O2SAT 99
[2017-09-07 22:33] VITALS: TEMP 98.2
[2017-09-07 22:35] VITALS: BP 144/68
== END 2017-09-07 22:20 | disposition short-term general hospital (02) ==
LOC: ER 14:37
DX: A41.9 Sepsis, unspecified organism (principal); L03.115 Cellulitis of right lower limb; L97.819 Non-pressure chronic ulcer of other part of right lower leg with unspecified severity; I10 Essential (primary) hypertension; N19 Unspecified kidney failure; Z99.2 Dependence on renal dialysis
CPT/HCPCS: 36415; 71045; 73590; 80048; 80076; 83605; 83690; 84145; 84484; 85025; 85610; 87040; 93005; 93971; 96361; 96365; 96367; 99285; J2543; J3370; J7030

== ENCOUNTER 2017-11-12 10:40 | Observation (INO) | payer OTHER ==
--- OUTSIDE RECORDS SUMMARY | 2017-11-12 10:44 | XMS REPORT | Clinical Summary ---
:1945 Author Organization [facility] Address [address] [place] [address] Care Team Providers Name Role Phone Asked, No Pcp Primary Care Provider Unavailable Allergies No Known Allergies Current Medications Prescription Sig. Disp. Refills Start Date End Date Status calcitriol Take 0.5 mcg by Active (ROCALTROL) 0.5 mouth daily. MCG capsule docusate sodium Take 100 mg by Active (COLACE) 100 MG mouth daily. capsule epoetin cindy Inject 10,000 Active (EPOGEN) 10,000 Units under the unit/mL injection skin 2 (two) times a week. Thursday, folic acid Take 1 mg by Active (FOLVITE) 1 MG mouth daily. tablet melatonin 3 mg Take 3 mg by Active tablet mouth nightly. pantoprazole Take 40 mg by Active (PROTONIX) 40 MG mouth 2 (two) EC tablet times a day. sevelamer Take 1,600 mg by Active (RENVELA) 800 mg mouth 3 (three) tablet times a day with meals. acetaminophen Take 2 tablets 1 tablet 0 10/22/2017 11/22/19 Active (TYLENOL) 325 MG (650 mg total) by 18 tablet mouth every 6 (six) hours as needed for moderate pain or fever for up to 30 days. rOPINIRole Take 1 tablet 1 tablet 0 10/22/2017 11/22/19 Active (REQUIP) 0.5 MG (0.5 mg total) by 18 tablet mouth nightly as needed (LEG CRAMPS) for up to 30 days. ipratropium-albute Take 3 mL by 1 mL 0 10/22/2017 11/22/19 Active rol (DUO-NEB) nebulization 18 0.5-2.5 mg/mL every 4 (four) nebulizer hours as needed for shortness of breath for up to 30 days. meropenem 500 mg Infuse 500 mg 1 each 0 10/22/2017 11/22/19 Active in sodium chloride into a venous 18 0.9 % MBP 50 mL catheter daily IVPB for 30 days. insulin lispro Inject 0-5 Units 10 mL 12 10/22/2017 11/22/19 Active (HumaLOG) 100 under the skin 18 unit/mL injection every 4 (four) hours for 30 days. insulin lispro Inject 4 Units 10 mL 12 10/22/2017 11/22/19 Active (HumaLOG) 100 under the skin 2 18 unit/mL injection (two) times a day before meals for 30 days. insulin GLARGINE Inject 6 Units 3.6 mL 0 10/22/2017 11/22/19 Active (LANTUS) 100 under the skin 2 18 unit/mL injection (two) times a day (vial) for 30 days. amLODIPine Take 5 mg by 3 09/25/2016 10/13/19 Discontinued (NORVASC) 5 mg mouth daily. 18 tablet carvedilol (COREG) Take 12.5 mg by 3 11/05/2016 12/26/19 Discontinued 12.5 MG tablet mouth daily. 17 furosemide (LASIX) Take 20 mg by 3 11/11/2016 10/13/19 Discontinued 40 mg tablet mouth 2 (two) 18 times a day. losartan (COZAAR) Take 50 mg by 3 11/11/2016 07/21/19 Discontinued 50 MG tablet mouth daily. 18 omeprazole Take 40 mg by 0 11/20/2016 10/13/19 Discontinued (PriLOSEC) 40 MG mouth daily. 18 capsule RENVELA 800 mg Take 800 mg by 3 11/19/2016 10/13/19 Discontinued tablet mouth 3 (three) 18 times a day with meals. traMADol (ULTRAM) Take 50 mg by 1 11/23/2016 07/21/19 Discontinued 50 mg tablet mouth every 12 18 (twelve) hours as needed for pain. for pain rOPINIRole Take 0.5 mg by 11 11/11/2016 10/13/19 Discontinued (REQUIP) 0.5 MG mouth nightly as 18 tablet needed for cramping. LEVEMIR FLEXTOUCH Inject 30 Units 3 10/09/2016 10/13/19 Discontinued 100 unit/mL (3 mL) under the skin 2 18 insulin pen (two) times a day. NOVOLOG FLEXPEN Inject 8 Units 3 09/26/2016 10/13/19 Discontinued 100 unit/mL under the skin 2 18 insulin pen (two) times a day. SANTYL ointment Apply 1 0 11/13/2016 10/13/19 Discontinued application 18 topically daily. ciprofloxacin HCl Take 250 mg by 0 12/04/2016 12/26/19 Discontinued (CIPRO) 250 MG mouth 2 (two) 17 tablet times a day. carvedilol (COREG) Take 1 tablet (25 30 tablet 0 12/25/2016 01/25/20 25 MG tablet mg total) by 17 mouth daily for 30 days. ampicillin Take 1 capsule 20 capsule 0 12/25/2016 01/05/20 (PRINCIPEN) 500 MG (500 mg total) by 17 capsule mouth 2 (two) times a day for 10 days. carvedilol (COREG) Take 12.5 mg by 07/21/19 Discontinued 12.5 MG tablet mouth 2 (two) 18 times a day with meals. calcitriol Take 0.25 mcg by 10/13/19 Discontinued (ROCALTROL) 0.25 mouth daily. 18 MCG capsule ampicillin Take 500 mg by 10/13/19 Discontinued (PRINCIPEN) 500 MG mouth 4 (four) 18 capsule times a day. carvedilol (COREG) Take 1 tablet 60 tablet 0 07/20/2017 08/20/19 3.125 MG tablet (3.125 mg total) 18 by mouth 2 (two) times a day for 30 days. atorvastatin Take 1 tablet (80 30 tablet 0 07/20/2017 08/20/19 (LIPITOR) 80 MG mg total) by 18 tablet mouth nightly for 30 days. aspirin 81 mg Chew 1 tablet (81 30 tablet 0 07/20/2017 08/20/19 chewable tablet mg total) daily 18 for 30 days. polyethylene Take 17 g by 30 packet 0 07/20/2017 08/20/19 glycol (MIRALAX) mouth daily for 18 17 gram packet 30 days. docusate sodium Take 1 capsule 60 capsule 0 07/20/2017 08/20/19 (COLACE) 50 MG (50 mg total) by 18 capsule mouth 2 (two) times a day for 30 days. insulin lispro Inject 1-8 Units 10/23/19 Discontinued (HumaLOG) 100 under the skin 3 18 unit/mL injection (three) times a day before meals. Per Sliding Scale alum-mag Take 30 mL by 10/23/19 Discontinued hydroxide-simeth mouth every 6 18 (MAALOX PLUS) (six) hours as 200-200-20 mg/5 mL needed for suspension heartburn. mupirocin Apply 1 10/08/2017 10/23/19 Discontinued (BACTROBAN) 2 % application 18 ointment topically 3 (three) times a day. For 7 days, starting on 10/08/2017 sulfamethoxazole-t Take 1 tablet by 10/08/2017 10/23/19 Discontinued rimethoprim mouth 2 (two) 18 (BACTRIM DS) times a day. For 800-160 mg per 180 days, tablet starting on 10/08/2017 Active Problems Problem Noted Date Anemia 10/12/2017 PAD (peripheral artery disease) 10/12/2017 Overview: Added automatically from request for surgery [id number] PD catheter dysfunction 10/12/2017 Overview: Added automatically from request for surgery [id number] Leukocytosis 07/18/2017 HTN (hypertension) 07/18/2017 HLD (hyperlipidemia) 07/18/2017 Ischemic stroke 07/17/2017 Peritoneal dialysis catheter dysfunction 12/21/2016 Anemia in chronic kidney disease 12/21/2016 Infection 12/21/2016 Encounters Date Type Specialty Care Team Description 10/22/2017 Orders Only Cardiovascular Odalys Escobar PAD (peripheral M, MA artery disease) (Primary Dx) 10/21/2017 Anesthesia Event Cardiothoracic Tomás, Surgery Arielle 10/21/2017 Procedure Pass Vascular Surgery 10/21/2017 Procedure Pass Cardiothoracic Surgery 10/21/2017 Procedure Pass Vascular Surgery 10/20/2017 Prep for Surgery Vascular Surgery Cecilia Obrien MD 10/19/2017 Telephone Employee Health Jose Maria Salazar 10/19/2017 Telephone Employee [facility] Jose Maria Salazar 10/19/2017 Procedure Pass Cardiothoracic Surgery 10/19/2017 Surgery Cardiothoracic Cecilia Obrien MD RIGHT LOWER Surgery EXTREMITY ARTERIOGRAM WITH SPY, ANGIOPLASTY. 10/16/2017 Anesthesia Event Cardiothoracic Vasquez, Reyna Bearden MD 10/16/2017 Orders Only Cardiovascular [place], PAD (peripheral Clara, RN artery disease) (Primary Dx) 10/16/2017 Procedure Pass Cardiothoracic Surgery 10/13/2017 Procedure Pass Cardiology 10/12/2017 - Hospital Cardiology Kori Najera Anemia, unspecified type ( Primary Dx); 10/22/2017 Encounter MD Gemma Syncope and collapse; Robert Leong, ESRD (end stage renal disease); PAD (peripheral artery disease); Peritoneal dialysis catheter dysfunction, initial encounter 10/12/2017 Procedure Pass Cardiology 09/12/2017 Refill Internal Medicine Audra Puente MD 08/16/2017 Refill Internal Medicine Audra Puente MD 07/17/2017 - Hospital Neurology Yosvany Fisher, Ischemic stroke (Primary Dx ); 07/20/2017 Encounter Peritoneal dialysis catheter dysfunction, initial encounter; Anemia in stage 5 chronic kidney disease, not on chronic dialysis; Infection 07/17/2017 Procedure Pass Neurology 07/17/2017 Procedure Pass Neurology 07/17/2017 Procedure Pass Neurology 12/22/2016 Anesthesia Event General Surgery Jamee Clayton CRNA 12/22/2016 Procedure Pass General Surgery 12/22/2016 Surgery General Surgery Susy, ELLIOT Luna MD LAPAROSCOPY WITH REPOSITIONING OF PERITONEAL DIALYSIS CATHETER 12/21/2016 - Hospital General Internal MarleniMariano williamson, Peritonitis (Primary Dx); 12/25/2016 Encounter Medicine Peritoneal dialysis catheter dysfunction, initial encounter 12/19/2016 Transcribe Orders Radiology Jarret, Petty Ibarra MD unspecified site, unspecified type (Primary Dx) after 11/11/2016 Social History Tobacco Use Types Packs/Day Years Used Date Never Smoker Smokeless Tobacco: Never Used Alcohol Use Drinks/Week oz/Week Comments No Sex Assigned at Date Recorded Not on file Last Filed Vital Signs Vital Sign Reading Time Taken Blood Pressure 160/66 10/22/2017 3:24 PM CDT Pulse 87 10/22/2017 3:24 PM CDT Temperature 36.2 C (97.2 F) 10/22/2017 3:24 PM CDT Respiratory Rate 16 10/22/2017 3:24 PM CDT Oxygen Saturation 96% 10/22/2017 11:42 AM CDT Inhaled Oxygen Concentration - - Weight 82.8 kg (182 lb 9.6 oz) 12/25/2016 4:52 AM CDT Height 149.9 cm (4' 11") 10/12/2017 5:47 PM CDT Body Mass Index 36.88 12/25/2016 4:52 AM CDT Plan of Treatment Date Type Specialty Care Team Description 11/26/2017 Appointment Procedural Cardiology Cecilia Obrien MD [address] [place] [address] [id number] 11/26/2017 Office Visit Cardiovascular Cecilia Obrien MD [address] [place], [place] [id number] Health Maintenance Due Date Last Done Comments DIABETIC FOOT EXAM 01/26/1955 DIABETIC RETINAL EYE EXAM 01/26/1955 URINE MICROALBUMIN 01/26/1954 BREAST CANCER SCREENING 01/26/1994 SHINGRIX VACCINE (#1) 01/26/1994 ZOSTER VACCINE 2004 PNEUMOCOCCAL POLYSACCHARIDE VACCINE AGE 65 AND OVER 01/26/2009 PNEUMOCOCCAL-13 01/26/2009 INFLUENZA VACCINE 09/30/2017 COLON CANCER SCREENING 10/18/2027 10/17/2017 Implants Implanted Type Area Battery Loader Device Expiration Model / Identifier Date Serial / Lot Device Vasclr Clsr Baln Cath 10ml Lkng Syr 5fr [place] Mynxgrip - [id number] Cardiovascular N/A: ACCESS CLOSURE 08/30/2019 [id number] / Implanted: 10/19/2017 (Quantity not on file) Implants N/A INC / [id number] Catheter Cv Powerline Dlmn Al 6fr - [id number] Surgical N/A: BARD ACCESS 04/29/2021 [id number] / Implanted: 12/23/2016 (Quantity not on file) Implants; N/A SYSTEMS / Expanders; [id number] Extenders; Surgical Wires Catheter Data Sciences Director Otw 4fr 150cm [id number] [place] RedKLEVER [id number] / Implanted: Qty: 1 on 10/19/2017 by Cecilia Obrien MD SCIENTIFIC/FELIPE / PHERAL VASCULAR [id number] (MEDI-TECH) Catheter Data Sciences Director Otw 4fr 150cm [id number] [place] BOSTON [id number] / Implanted: Qty: 1 on 10/19/2017 by Cecilia Obrien MD SCIENTIFIC/FELIPE / PHERAL VASCULAR [id number] (Level Chef-TECH) Catheter Supp Seeker 5fr 135cm Xng W/0.035in Gw BARD PERIPHERAL [id number] / Implanted: Qty: 1 on 10/19/2017 by Cecilia Obrien MD VASCULAR INC / [id number] Procedures Procedure Name Priority Date/Time Associated Comments Diagnosis POC GLUCOSE Routine 10/22/2017 12:06 Results for this PM CDT procedure are in the results section. POC GLUCOSE Routine 10/22/2017 11:40 Results for this AM CDT procedure are in the results section. POC GLUCOSE Routine 10/22/2017 7:55 Results for this AM CDT procedure are in the results section. SMEAR REVIEW Routine 10/22/2017 5:28 Results for this AM CDT procedure are in the results section. TYPE AND SCREEN Routine 10/22/2017 5:28 Results for this AM CDT procedure are in the results section. ZZESTIMATED GFR Routine 10/22/2017 5:28 Results for this AM CDT procedure are in the results section. BASIC METABOLIC PANEL Routine 10/22/2017 5:28 Results for this AM CDT procedure are in the results section. CBC WITH PLATELET AND Routine 10/22/2017 5:28 Results for this DIFFERENTIAL AM CDT procedure are in the results section. PARTIAL THROMBOPLASTIN Routine 10/22/2017 5:28 Results for this TIME (PTT) AM CDT procedure are in the results section. PROTHROMBIN TIME WITH Routine 10/22/2017 5:28 Results for this INR AM CDT procedure are in the results section. POC GLUCOSE Routine 10/21/2017 10:13 Results for this PM CDT procedure are in the results section. TRANSFUSE RED BLOOD Routine 10/21/2017 6:44 CELLS PM CDT POC GLUCOSE Routine 10/21/2017 4:57 Results for this PM CDT procedure are in the results section. POC GLUCOSE Routine 10/21/2017 11:51 Results for this AM CDT procedure are in the results section. BLOOD CULTURE, AEROBIC Routine 10/21/2017 10:36 Results for this & ANAEROBIC AM CDT procedure are in the results section. GRAM STAIN ONLY Routine 10/21/2017 10:36 Results for this AM CDT procedure are in the results section. CELL COUNT AND Routine 10/21/2017 10:35 Results for this DIFFERENTIAL, BODY AM CDT procedure are in FLUID the results section. POC GLUCOSE Routine 10/21/2017 7:19 Results for this AM CDT procedure are in the results section. SMEAR REVIEW Routine 10/21/2017 6:05 Results for this AM CDT procedure are in the results section. HC COMPLETE BLD COUNT Routine 10/21/2017 6:05 Results for this W/AUTO DIFF AM CDT procedure are in the results section. POC GLUCOSE Routine 10/21/2017 5:06 Results for this AM CDT procedure are in the results section. ZZESTIMATED GFR Routine 10/21/2017 4:00 Results for this AM CDT procedure are in the results section. COMPREHENSIVE METABOLIC Routine 10/21/2017 4:00 Results for this PANEL AM CDT procedure are in the results section. POC GLUCOSE Routine 10/21/2017 12:27 Results for this AM CDT procedure are in the results section. POC GLUCOSE Routine 10/20/2017 8:28 Results for this PM CDT procedure are in the results section. POC GLUCOSE Routine 10/20/2017 4:58 Results for this PM CDT procedure are in the results section. POC GLUCOSE Routine 10/20/2017 11:45 Results for this AM CDT procedure are in the results section. POC GLUCOSE Routine 10/20/2017 7:56 Results for this AM CDT procedure are in the results section. POC GLUCOSE Routine 10/20/2017 4:07 Results for this AM CDT procedure are in the results section. POC GLUCOSE Routine 10/19/2017 10:39 Results for this PM CDT procedure are in the results section. POC GLUCOSE Routine 10/19/2017 8:53 Results for this PM CDT procedure are in the results section. POC GLUCOSE Routine 10/19/2017 7:11 Results for this PM CDT procedure are in the results section. POC GLUCOSE Routine 10/19/2017 5:38 Results for this PM CDT procedure are in the results section. POC GLUCOSE Routine 10/19/2017 12:05 Results for this PM CDT procedure are in the results section. POC GLUCOSE Routine 10/19/2017 8:04 Results for this AM CDT procedure are in the results section. PREPARE RBC Timed 10/19/2017 6:03 Results for this AM CDT procedure are in the results section. ZZESTIMATED GFR Routine 10/19/2017 6:03 Results for this AM CDT procedure are in the results section. HC COMPLETE BLD COUNT Routine 10/19/2017 6:03 Results for this W/AUTO DIFF AM CDT procedure are in the results section. BASIC METABOLIC PANEL Routine 10/19/2017 6:03 Results for this AM CDT procedure are in the results section. TYPE AND SCREEN Routine 10/19/2017 6:03 Results for this AM CDT procedure are in the results section. POC GLUCOSE Routine 10/19/2017 4:29 Results for this AM CDT procedure are in the results section. POC GLUCOSE Routine 10/19/2017 12:30 Results for this AM CDT procedure are in the results section. POC GLUCOSE Routine 10/18/2017 9:54 Results for this PM CDT procedure are in the results section. POC GLUCOSE Routine 10/18/2017 5:08 Results for this PM CDT procedure are in the results section. POC GLUCOSE Routine 10/18/2017 11:55 Results for this AM CDT procedure are in the results section. ECG 12-LEAD Routine 10/18/2017 11:26 Results for this AM CDT procedure are in the results section. POC GLUCOSE Routine 10/18/2017 7:53 Results for this AM CDT procedure are in the results section. POC GLUCOSE Routine 10/18/2017 5:03 Results for this AM CDT procedure are in the results section. POC GLUCOSE Routine 10/17/2017 11:59 Results for this PM CDT procedure are in the results section. OCCULT BLOOD, STOOL Routine 10/17/2017 10:49 Results for this PM CDT procedure are in the results section. CLOSTRIDIUM DIFFICILE Routine 10/17/2017 10:49 Results for this TOXIN PM CDT procedure are in the results section. POC GLUCOSE Routine 10/17/2017 9:23 Results for this PM CDT procedure are in the results section. POC GLUCOSE Routine 10/17/2017 8:18 Results for this PM CDT procedure are in the results section. POC GLUCOSE Routine 10/17/2017 5:03 Results for this PM CDT procedure are in the results section. CORTISOL LEVEL, AM Routine 10/17/2017 1:00 Results for this PM CDT procedure are in the results section. POC GLUCOSE Routine 10/17/2017 11:23 Results for this AM CDT procedure are in the results section. POC GLUCOSE Routine 10/17/2017 7:50 Results for this AM CDT procedure are in the results section. POC GLUCOSE Routine 10/16/2017 9:09 Results for this PM CDT procedure are in the results section. CONSULT TO OSTOMY CARE Routine 10/16/2017 7:22 NURSE PM CDT POC GLUCOSE Routine 10/16/2017 6:04 Results for this PM CDT procedure are in the results section. ARTERIAL BLOOD GAS STAT 10/16/2017 4:08 Results for this PM CDT procedure are in the results section. POC GLUCOSE Routine 10/16/2017 3:18 Results for this PM CDT procedure are in the results section. XR CHEST 1 VW PORTABLE STAT 10/16/2017 2:40 Results for this PM CDT procedure are in the results section. AST (SGOT) Routine 10/16/2017 2:08 Results for this PM CDT procedure are in the results section. POTASSIUM LEVEL Routine 10/16/2017 2:08 Results for this PM CDT procedure are in the results section. ALT (SGPT) Routine 10/16/2017 2:08 Results for this PM CDT procedure are in the results section. BLOOD CULTURE, AEROBIC Routine 10/16/2017 1:30 Results for this & ANAEROBIC PM CDT procedure are in the results section. BLOOD CULTURE, AEROBIC Routine 10/16/2017 1:30 Results for this & ANAEROBIC PM CDT procedure are in the results section. POC GLUCOSE Routine 10/16/2017 10:24 Results for this AM CDT procedure are in the results section. HC COMPLETE BLD COUNT STAT 10/16/2017 9:27 Results for this W/AUTO DIFF AM CDT procedure are in the results section. POC GLUCOSE Routine 10/16/2017 9:25 Results for this AM CDT procedure are in the results section. ZZESTIMATED GFR STAT 10/16/2017 8:56 Results for this AM CDT procedure are in the results section. COMPREHENSIVE METABOLIC STAT 10/16/2017 8:56 Results for this PANEL AM CDT procedure are in the results section. LACTIC ACID LEVEL STAT 10/16/2017 8:56 Results for this AM CDT procedure are in the results section. POC GLUCOSE Routine 10/16/2017 8:37 Results for this AM CDT procedure are in the results section. POC GLUCOSE Routine 10/16/2017 8:16 Results for this AM CDT procedure are in the results section. POC GLUCOSE Routine 10/16/2017 8:06 Results for this AM CDT procedure are in the results section. POC GLUCOSE Routine 10/16/2017 7:57 Results for this AM CDT procedure are in the results section. POC GLUCOSE Routine 10/16/2017 5:16 Results for this AM CDT procedure are in the results section. POC GLUCOSE Routine 10/16/2017 12:46 Results for this AM CDT procedure are in the results section. POC GLUCOSE Routine 10/15/2017 9:12 Results for this PM CDT procedure are in the results section. HC COMPLETE BLD COUNT Routine 10/15/2017 6:47 Results for this W/AUTO DIFF PM CDT procedure are in the results section. POC GLUCOSE Routine 10/15/2017 5:35 Results for this PM CDT procedure are in the results section. XR ABDOMEN 1 VW Routine 10/15/2017 2:57 Results for this PM CDT procedure are in the results section. US DUPLEX ARTERIAL Routine 10/15/2017 2:30 Results for this LOWER EXTREMITY PM CDT procedure are in BILATERAL the results section. POC GLUCOSE Routine 10/15/2017 12:18 Results for this PM CDT procedure are in the results section. POC GLUCOSE Routine 10/15/2017 9:40 Results for this AM CDT procedure are in the results section. POC GLUCOSE Routine 10/15/2017 5:37 Results for this AM CDT procedure are in the results section. POC GLUCOSE Routine 10/15/2017 12:34 Results for this AM CDT procedure are in the results section. POC GLUCOSE Routine 10/14/2017 8:53 Results for this PM CDT procedure are in the results section. POC GLUCOSE Routine 10/14/2017 6:44 Results for this PM CDT procedure are in the results section. POC GLUCOSE Routine 10/14/2017 5:30 Results for this PM CDT procedure are in the results section. MRI LOWER EXTREMITY WO Routine 10/14/2017 4:41 Results for this CONTRAST RIGHT PM CDT procedure are in the results section. POC GLUCOSE Routine 10/14/2017 3:05 Results for this PM CDT procedure are in the results section. POC GLUCOSE Routine 10/14/2017 12:15 Results for this PM CDT procedure are in the results section. POC GLUCOSE Routine 10/14/2017 8:56 Results for this AM CDT procedure are in the results section. POC GLUCOSE Routine 10/14/2017 8:03 Results for this AM CDT procedure are in the results section. POC GLUCOSE Routine 10/14/2017 4:59 Results for this AM CDT procedure are in the results section. POC GLUCOSE Routine 10/14/2017 3:49 Results for this AM CDT procedure are in the results section. POC GLUCOSE Routine 10/14/2017 1:13 Results for this AM CDT procedure are in the results section. POC GLUCOSE Routine 10/13/2017 8:45 Results for this PM CDT procedure are in the results section. US CAROTID DUPLEX Routine 10/13/2017 5:41 Results for this BILATERAL PM CDT procedure are in the results section. POC GLUCOSE Routine 10/13/2017 5:18 Results for this PM CDT procedure are in the results section. POC GLUCOSE Routine 10/13/2017 12:38 Results for this PM CDT procedure are in the results section. POC GLUCOSE Routine 10/13/2017 8:46 Results for this AM CDT procedure are in the results section. POC GLUCOSE Routine 10/13/2017 8:20 Results for this AM CDT procedure are in the results section. POC GLUCOSE Routine 10/13/2017 7:56 Results for this AM CDT procedure are in the results section. POC GLUCOSE Routine 10/13/2017 4:51 Results for this AM CDT procedure are in the results section. C-REACTIVE PROTEIN Timed 10/13/2017 4:26 Results for this AM CDT procedure are in the results section. HEPATITIS B SURFACE Routine 10/13/2017 4:26 Results for this ANTIGEN AM CDT procedure are in the results section. SEDIMENTATION RATE Routine 10/13/2017 4:26 Results for this AM CDT procedure are in the results section. TROPONIN Timed 10/13/2017 4:26 Results for this AM CDT procedure are in the results section. POC GLUCOSE Routine 10/13/2017 12:09 Results for this AM CDT procedure are in the results section. POC GLUCOSE Routine 10/12/2017 8:59 Results for this PM CDT procedure are in the results section. MRI BRAIN WO CONTRAST Routine 10/12/2017 8:22 Results for this PM CDT procedure are in the results section. ECHOCARDIOGRAM 2D Routine 10/12/2017 6:28 Results for this COMPLETE W MMODE PM CDT procedure are in SPECTRAL COLOR DOPPLER the results (41121) section. POC GLUCOSE Routine 10/12/2017 6:21 Results for this PM CDT procedure are in the results section. CT HEAD WO CONTRAST STAT 10/12/2017 3:43 Results for this PM CDT procedure are in the results section. LIPID PANEL Routine 10/12/2017 3:15 Results for this PM CDT procedure are in the results section. HEMOGLOBIN A1C Routine 10/12/2017 3:15 Results for this PM CDT procedure are in the results section. TROPONIN Routine 10/12/2017 3:15 Results for this PM CDT procedure are in the results section. BLOOD CULTURE, AEROBIC Routine 10/12/2017 3:15 Results for this PM CDT procedure are in the results section. BLOOD CULTURE, AEROBIC Routine 10/12/2017 3:08 Results for this & ANAEROBIC PM CDT procedure are in the results section. ECG ED PRELIMINARY Routine 10/12/2017 1:41 Results for this INTERPRETATION PM CDT procedure are in the results section. ZZESTIMATED GFR STAT 10/12/2017 1:05 Results for this PM CDT procedure are in the results section. B NATRIURETIC PEPTIDE STAT 10/12/2017 1:05 Results for this PM CDT procedure are in the results section. TROPONIN STAT 10/12/2017 1:05 Results for this PM CDT procedure are in the results section. COMPREHENSIVE METABOLIC STAT 10/12/2017 1:05 Results for this PANEL PM CDT procedure are in the results section. PARTIAL THROMBOPLASTIN STAT 10/12/2017 1:05 Results for this TIME (PTT) PM CDT procedure are in the results section. PROTHROMBIN TIME WITH STAT 10/12/2017 1:05 Results for this INR PM CDT procedure are in the results section. HC COMPLETE BLD COUNT STAT 10/12/2017 1:05 Results for this W/AUTO DIFF PM CDT procedure are in the results section. XR CHEST 1 VW PORTABLE STAT 10/12/2017 12:45 Results for this PM CDT procedure are in the results section. ECG 12-LEAD STAT 10/12/2017 11:52 Results for this AM CDT procedure are in the results section. POC GLUCOSE Routine 07/20/2017 5:00 Results for [...] are in SPECTRAL COLOR DOPPLER the results ([id number]) section. ECG 12-LEAD STAT 07/20/2017 8:22 Results [...] CDT procedure are in the results section. ZZESTIMATED GFR Routine 07/20/2017 4:00 Results for this [...] CDT procedure are in the results section. ZZESTIMATED GFR Routine 07/19/2017 5:51 Results for this [...] CDT procedure are in the results section. ZZESTIMATED GFR Routine 07/18/2017 5:48 Results for this [...] CDT procedure are in the results section. ZZESTIMATED GFR Routine 07/18/2017 12:10 Results for this [...] CDT procedure are in the results section. ZZESTIMATED GFR Routine 12/25/2016 6:00 Results for this [...] CDT procedure are in the results section. ZZESTIMATED GFR Routine 12/23/2016 3:55 Results for this [...] Authorized by: LESLIE PAREDES Difficult Airway: No Resident/BOND MANAGER: PANCHO MIRANDA JR Performed by: resident/BOND MANAGER Preoxygenated with 100% O2: Yes C-spine Precautions [...] POC GLUCOSE Routine 12/22/2016 9:00 AM CDT ZZESTIMATED GFR Routine 12/22/2016 3:35 AM CDT HC [...] SPECTRAL COLOR DOPPLER procedure are in the (97959) results section. POC GLUCOSE Routine 12/21/2016 1:25 PM CDT ECG PRE/POST OP STAT 12/21/2016 1:[address] ABDOMEN PELVIS WO Routine 12/21/2016 9:43 AM CDT Results for this CONTRAST procedure are in the results section. POC GLUCOSE Routine 12/21/2016 9:14 AM CDT CONSULT TO OSTOMY CARE NURSE Routine 12/21/2016 4:43 AM CDT ZZESTIMATED GFR Routine 12/21/2016 4:00 AM CDT LACTIC [...] GLUCOSE Routine 12/21/2016 3:37 AM CDT after 11/11/2016 Results POC glucose (10/22/2017 12:06 PM)Only the most recent of107 resultswithin the time period is included. POC glucose 78 65 - 99 mg/dL [facility] DEPARTMENT OF PATHOLOGY AND Comment: GENOMIC MEDICINE [facility] Notified RN Meter ID: [id number] Maintenance Chief: Eris Montoya Performing Organization Address City/State/Zipcode Phone Number [facility] DEPARTMENT OF PATHOLOGY AND [address] [place] [address] GENOMIC MEDICINE Smear review (10/22/2017 5:28 AM)Only the most recent of2 resultswithin the time period is included. Platelet slide review Delmar adequate [facility] DEPARTMENT OF PATHOLOGY AND GENOMIC MEDICINE Anisocytosis Moderate [facility] DEPARTMENT OF PATHOLOGY AND GENOMIC MEDICINE Polychromasia Moderate [facility] DEPARTMENT OF PATHOLOGY AND GENOMIC MEDICINE Performing Organization Address City/[facility] Phone Number [facility] DEPARTMENT OF PATHOLOGY AND [address] [place] [address] Estimated GFR (10/22/2017 5:28 AM)Only the most recent of13 resultswithin the time period is included. GFR Non Af Amer 6 (A) mL/min/1.73 m2 [facility] DEPARTMENT OF PATHOLOGY AND GENOMIC MEDICINE GFR Af Amer 7 (A) mL/min/1.73 m2 [facility] DEPARTMENT OF Comment: PATHOLOGY AND GENOMIC [...] Americans. Specimen Plasma specimen Performing Organization Address City/State/[facility] Phone Number [facility] DEPARTMENT OF PATHOLOGY AND [address] [place] [address] Partial thromboplastin time, activated (10/22/2017 5:28 AM)Only the most recent of2 resultswithin the time period is included. PTT 32.3 23.0 - 36.0 sec [facility] DEPARTMENT OF PATHOLOGY Comment: AND [facility] PTT therapeutic range for unfractionated heparin is 61.0-112.0 seconds which corresponds to Anti-Xa 0.3-0.7 U/ml. Specimen Blood Performing Organization Address City/State/Zipcode Phone Number [facility] DEPARTMENT OF PATHOLOGY AND [address] [place] [address] Prothrombin time with INR (10/22/2017 5:28 AM)Only the most recent of4 resultswithin the time period is included. Prothrombin time 14.7 12.0 - 15.0 sec [facility] DEPARTMENT OF PATHOLOGY AND GENOMIC MEDICINE INR 1.1 [facility] DEPARTMENT OF Comment: PATHOLOGY AND GENOMIC The International Normalized Ratio (INR) is a therapeutic MEDICINE monitoring tool for patients who are stable on oral anticoagulant therapy. An INR of 2.0-3.0 is suggested for deep vein thrombosis/pulmonary embolism. Specimen Blood Performing Organization Address City/State/Zipcode Phone Number [facility] DEPARTMENT OF PATHOLOGY AND [address] [place] [address] GENOMIC MEDICINE CBC with platelet and differential (10/22/2017 5:28 AM)Only the most recent of14 resultswithin the time period is included. WBC 6.57 4.50 - 11.00 k/uL [facility] DEPARTMENT OF PATHOLOGY AND GENOMIC MEDICINE RBC 2.65 (L) 4.20 - 5.50 m/uL [facility] DEPARTMENT OF PATHOLOGY AND GENOMIC MEDICINE HGB 7.9 (L) 12.0 - 16.0 g/dL [facility] DEPARTMENT OF PATHOLOGY AND GENOMIC MEDICINE HCT 25.7 (L) 37.0 - 47.0 % [facility] DEPARTMENT OF PATHOLOGY AND GENOMIC MEDICINE MCV 97.0 82.0 - 100.0 fL [facility] DEPARTMENT OF PATHOLOGY AND GENOMIC MEDICINE MCH 29.8 27.0 - 34.0 pg [facility] DEPARTMENT OF PATHOLOGY AND GENOMIC MEDICINE MCHC 30.7 (L) 31.0 - 37.0 g/dL [facility] DEPARTMENT OF PATHOLOGY AND GENOMIC MEDICINE RDW - SD 55.0 37.0 - 55.0 fL [facility] DEPARTMENT OF PATHOLOGY AND GENOMIC MEDICINE MPV 10.4 8.8 - 13.2 fL [facility] DEPARTMENT OF PATHOLOGY AND GENOMIC MEDICINE Platelet count 279 150 - 400 k/uL [facility] DEPARTMENT OF PATHOLOGY AND GENOMIC MEDICINE Nucleated RBC 0.30 /100 WBC [facility] DEPARTMENT OF PATHOLOGY AND GENOMIC MEDICINE Neutrophils 66.9 39.0 - 69.0 % [facility] DEPARTMENT OF PATHOLOGY AND GENOMIC MEDICINE Lymphocytes 16.7 (L) 25.0 - 45.0 % [facility] DEPARTMENT OF PATHOLOGY AND GENOMIC MEDICINE Monocytes 11.4 (H) 0.0 - 10.0 % [facility] DEPARTMENT OF PATHOLOGY AND GENOMIC MEDICINE Eosinophils 3.0 0.0 - 5.0 % [facility] DEPARTMENT OF PATHOLOGY AND GENOMIC MEDICINE Basophils 0.6 0.0 - 1.0 % [facility] DEPARTMENT OF PATHOLOGY AND GENOMIC MEDICINE Immature granulocytes 1.4 (H)Comment: 0.0 - 1.0 % [facility] DEPARTMENT OF "Immature PATHOLOGY AND GENOMIC granulocytes" MEDICINE (promyelocytes, myelocytes, metamyelocytes) Specimen Blood Performing Organization Address City/[facility] Phone Number [facility] DEPARTMENT OF PATHOLOGY AND [address] [place] [phone] GENOMIC MEDICINE Type and screen (10/22/2017 5:28 AM)Only the most recent of3 resultswithin the time period is included. ABO grouping O [facility] DEPARTMENT OF PATHOLOGY AND GENOMIC MEDICINE Rh type POS [facility] DEPARTMENT OF PATHOLOGY AND GENOMIC MEDICINE Antibody screen (gel) NEG [facility] DEPARTMENT OF PATHOLOGY AND GENOMIC MEDICINE Performing Organization Address City/[facility] Phone Number [facility] DEPARTMENT OF PATHOLOGY AND [address] [place] [address] [facility] MEDICINE Basic metabolic panel (10/22/2017 5:28 AM)Only the most recent of8 resultswithin the time period is included. Sodium 140 135 - 148 mEq/L [facility] DEPARTMENT OF PATHOLOGY AND GENOMIC MEDICINE Potassium 3.7 3.5 - 5.0 mEq/L [facility] DEPARTMENT OF PATHOLOGY AND GENOMIC MEDICINE Chloride 99 98 - 112 mEq/L [facility] DEPARTMENT OF PATHOLOGY AND GENOMIC MEDICINE CO2 25 24 - 31 mEq/L [facility] DEPARTMENT OF PATHOLOGY AND GENOMIC MEDICINE Anion gap 16@ANIO (H) 7 - 15 mEq/L [facility] DEPARTMENT OF PATHOLOGY AND GENOMIC MEDICINE BUN 61 (H) 8 - 23 mg/dL [facility] DEPARTMENT OF PATHOLOGY AND GENOMIC MEDICINE Creatinine 7.0 (H) 0.5 - 0.9 mg/dL [facility] DEPARTMENT OF PATHOLOGY AND GENOMIC MEDICINE Glucose 291 (H) 65 - 99 mg/dL [facility] DEPARTMENT OF PATHOLOGY AND GENOMIC MEDICINE Calcium 8.6 (L) 8.8 - 10.2 mg/dL [facility] DEPARTMENT OF PATHOLOGY AND GENOMIC MEDICINE Specimen Plasma specimen Performing Organization Address City/[facility]/Zipcode Phone Number [facility] DEPARTMENT OF PATHOLOGY AND [address] [place] [address] GENOMIC MEDICINE Transfuse RBC (10/21/2017 6:44 PM)Only the most recent of2 resultswithin the time period is included.Gram stain only (10/21/2017 10:36 AM)Only the most recent of2 resultswithin the time period is included. Gram stain result Moderate WBC's [facility] DEPARTMENT OF PATHOLOGY No organisms seen AND GENOMIC MEDICINE Comment: Specimen Information Specimen Source: Peritoneal fluid Specimen Site: Not otherwise specified Specimen Peritoneal fluid - Not otherwise specified Performing Organization Address [facility]/Zipcode Phone Number [facility] DEPARTMENT OF PATHOLOGY AND [address] [place] [phone] GENOMIC MEDICINE Blood culture, aerobic & anaerobic (10/21/2017 10:36 AM)Only the most recent of9 resultswithin the time period is included. Blood culture isolate No growth after 5 days of incubation. [facility] DEPARTMENT OF Comment: PATHOLOGY AND GENOMIC Specimen Information MEDICINE Specimen Source: Fluid Specimen Site: Peritoneal Specimen Peritoneal Performing Organization Address [facility] Phone Number [facility] DEPARTMENT OF PATHOLOGY AND [address] [place] [phone] GENOMIC MEDICINE Cell count and differential, body fluid (10/21/2017 10:35 AM)Only the most recent of3 resultswithin the time period is included. [facility] [place] fluid [facility] DEPARTMENT OF PATHOLOGY AND GENOMIC MEDICINE Color, fluid Pale yellow [facility] DEPARTMENT OF PATHOLOGY AND GENOMIC MEDICINE Appearance, fluid Slightly hazy [facility] DEPARTMENT OF PATHOLOGY AND GENOMIC MEDICINE RBC, fluid SEE COMMENTComment: 1+ /CMM [facility] DEPARTMENT OF (0 - 500 RBC/CMM) PATHOLOGY AND GENOMIC MEDICINE Nucleated cells, fluid 1,303 /CMM [facility] DEPARTMENT OF PATHOLOGY AND GENOMIC MEDICINE Fluid mononuclear cell See Diff [facility] DEPARTMENT OF PATHOLOGY AND GENOMIC MEDICINE Neutrophils, fluid 74 % [facility] DEPARTMENT OF PATHOLOGY AND GENOMIC MEDICINE Lymphocytes, fluid 2 % [facility] DEPARTMENT OF PATHOLOGY AND GENOMIC MEDICINE Eosinophils, fluid 1 % [facility] DEPARTMENT OF PATHOLOGY AND GENOMIC MEDICINE Mesothelial cells, fluid 1 % [facility] DEPARTMENT OF PATHOLOGY AND GENOMIC MEDICINE Macrophages, fluid 22 % [facility] DEPARTMENT OF PATHOLOGY AND GENOMIC MEDICINE Specimen Fluid Performing Organization Address City/[facility]/Zipcode Phone Number [facility] DEPARTMENT OF PATHOLOGY AND [address] [place] [phone] GENOMIC MEDICINE Comprehensive metabolic panel (10/21/2017 4:00 AM)Only the most recent of5 resultswithin the time period is included. Sodium 143 135 - 148 mEq/L [facility] DEPARTMENT OF PATHOLOGY AND GENOMIC MEDICINE Potassium 5.4 (H) 3.5 - 5.0 mEq/L [facility] DEPARTMENT OF PATHOLOGY AND GENOMIC MEDICINE Chloride 105 98 - 112 mEq/L [facility] DEPARTMENT OF PATHOLOGY AND GENOMIC MEDICINE CO2 20 (L) 24 - 31 mEq/L [facility] DEPARTMENT OF PATHOLOGY AND GENOMIC MEDICINE Anion gap 18@ANIO (H) 7 - 15 mEq/L [facility] DEPARTMENT OF PATHOLOGY AND GENOMIC MEDICINE BUN 95 (H) 8 - 23 mg/dL [facility] DEPARTMENT OF PATHOLOGY AND GENOMIC MEDICINE Creatinine 9.5 (H) 0.5 - 0.9 mg/dL [facility] DEPARTMENT OF PATHOLOGY AND GENOMIC MEDICINE Glucose 142 (H) 65 - 99 mg/dL [facility] DEPARTMENT OF PATHOLOGY AND GENOMIC MEDICINE Calcium 8.6 (L) 8.8 - 10.2 mg/dL [facility] DEPARTMENT OF PATHOLOGY AND GENOMIC MEDICINE Protein 5.5 (L) 6.3 - 8.3 g/dL [facility] DEPARTMENT OF Comment: PATHOLOGY AND GENOMIC 4.6-7.0 g/dL MEDICINE 1 week 4.4-7.6 g/dL 7 months-1year5.1-7.3 g/dL 1-2 years5.6-7.5 g/dL >3 years6.0-8.0 g/dL 18-150 6.3-8.3 g/dL Albumin 1.6 (L) 3.5 - 5.0 g/dL [facility] DEPARTMENT OF PATHOLOGY AND GENOMIC MEDICINE A/G ratio 0.4 (L) 0.7 - 3.8 [facility] DEPARTMENT OF PATHOLOGY AND GENOMIC MEDICINE Alkaline phosphatase 164 (H) 35 - 104 U/L [facility] DEPARTMENT OF PATHOLOGY AND GENOMIC MEDICINE AST 15 10 - 35 U/L [facility] DEPARTMENT OF PATHOLOGY AND GENOMIC MEDICINE ALT 7 5 - 50 U/L [facility] DEPARTMENT OF PATHOLOGY AND GENOMIC MEDICINE Total bilirubin <0.2 0.0 - 1.2 mg/dL [facility] DEPARTMENT OF PATHOLOGY AND GENOMIC MEDICINE Specimen Plasma specimen Performing Organization Address City/State/Zipcode Phone Number [facility] DEPARTMENT OF PATHOLOGY AND [address] [place] [address] [facility] Prepare RBC, 1 Units (10/19/2017 6:03 AM) Product name Red Blood Cells -1, [facility] DEPARTMENT OF Leukored PATHOLOGY AND GENOMIC MEDICINE Unit number [id number] [facility] DEPARTMENT OF PATHOLOGY AND GENOMIC MEDICINE Product code [id number] [facility] DEPARTMENT OF PATHOLOGY AND GENOMIC MEDICINE Dispense status Transfused [facility] DEPARTMENT OF PATHOLOGY AND GENOMIC MEDICINE Blood expiration date [facility] DEPARTMENT OF PATHOLOGY AND GENOMIC MEDICINE Blood type code 5100 [facility] DEPARTMENT OF PATHOLOGY AND GENOMIC MEDICINE Blood type O POSITIVE [facility] DEPARTMENT OF PATHOLOGY AND GENOMIC MEDICINE Performing Organization Address City/[facility] Phone Number [facility] DEPARTMENT OF PATHOLOGY AND [address] [place] [address] ECG 12 lead (10/18/2017 11:26 AM)Only the most recent of4 resultswithin the time period is included. Ventricular rate 78 [facility] MUSE Atrial rate 78 [facility] MUSE NC interval 154 [facility] MUSE QRSD interval 84 [facility] MUSE QT interval 386 [facility] MUSE QTC interval 440 [facility] MUSE P axis 1 73 [facility] MUSE QRS axis 1 15 [facility] MUSE T wave axis 98 [facility] MUSE EKG impression Normal sinus rhythm-Abnormal QRS-T angle, [facility] MUSE consider primary T wave abnormality-Abnormal ECG-In automated comparison with ECG of 12-OCT-2017 11:52,-QT has shortened- Performing Organization Address [facility] Phone Number [facility] MUSE [address] [place], [place] [phone] Occult blood, stool (10/17/2017 10:49 PM) Occult blood, stool Negative for occult blood. [facility] DEPARTMENT OF PATHOLOGY Comment: AND [facility] Specimen Information Specimen Source: Stool Specimen Site: Nonpreserved Specimen Stool - Nonpreserved Performing Organization Address [facility] Phone Number [facility] DEPARTMENT OF PATHOLOGY AND [address] [place] [address] C difficile toxin (10/17/2017 10:49 PM) Clostridium difficile No Clostridium difficle toxin present [facility] DEPARTMENT OF toxin Comment: PATHOLOGY AND GENOMIC Specimen Information MEDICINE Specimen Source: Stool Specimen Site: Nonpreserved Specimen Stool - Nonpreserved Performing Organization Address City/[facility]/Zipcode Phone Number [facility] DEPARTMENT OF PATHOLOGY AND [address] [place], [place] [phone] [facility] Cortisol level, AM (10/17/2017 1:00 PM) Cortisol, AM 9 6 - 18 ug/dL [facility] DEPARTMENT OF PATHOLOGY AND GENOMIC MEDICINE Specimen Plasma specimen Performing Organization Address City/[facility]/Zipcode Phone Number [facility] DEPARTMENT OF PATHOLOGY AND [address] [place], [place] [phone] [facility] Arterial blood gas (10/16/2017 4:08 PM) pH, arterial 7.40 7.35 - 7.45 [facility] DEPARTMENT OF PATHOLOGY AND GENOMIC MEDICINE pCO2, arterial 44 35 - 45 mmHg [facility] DEPARTMENT OF PATHOLOGY AND GENOMIC MEDICINE pO2, arterial 91 (H) 80 - 90 mmHg [facility] DEPARTMENT OF PATHOLOGY AND GENOMIC MEDICINE Bicarbonate, arterial 26.7 21.0 - 28.0 mmol/L [facility] DEPARTMENT OF PATHOLOGY AND GENOMIC MEDICINE Base excess, arterial 2 -2 - 2 mEq/L [facility] DEPARTMENT OF PATHOLOGY AND GENOMIC MEDICINE O2 saturation, arterial 98 95 - 100 % [facility] DEPARTMENT OF PATHOLOGY AND GENOMIC MEDICINE Specimen Blood Performing Organization Address City/[facility] Phone Number [facility] DEPARTMENT OF PATHOLOGY AND [address] [place] [phone] [facility] MEDICINE XR Chest 1 Vw Portable (10/16/2017 2:40 PM)Only the most recent of2 resultswithin the time period is included. Narrative Performed At EXAMINATION:XR CHEST 1 VW PORTABLE [facility] CLINICAL HISTORY:Cough COMPARISON:Most Recent IMPRESSION: Heart and mediastinum are stable. No focal pulmonary infiltrates are noted. Bones are osteopenic. [facility]-[id number] Procedure Note Hm Interface, Radiology Results Incoming - 10/16/2017 2:46 PM CDT EXAMINATION: XR CHEST 1 VW PORTABLE CLINICAL HISTORY: Cough COMPARISON: Most Recent IMPRESSION: Heart and mediastinum are stable. No focal pulmonary infiltrates are noted. Bones are osteopenic. [facility]-[id number] Performing Organization Address City/[facility] Phone Number [facility] [address] [place] [address] ALT (SGPT) (10/16/2017 2:08 PM) ALT <5 (A) 5 - 50 U/L [facility] DEPARTMENT OF PATHOLOGY AND GENOMIC MEDICINE Specimen Plasma specimen Performing Organization Address City/[facility]/Zipcode Phone Number [facility] DEPARTMENT OF PATHOLOGY AND [address] [place] [address] [facility] AST (SGOT) (10/16/2017 2:08 PM) AST 17 10 - 35 U/L [facility] DEPARTMENT OF PATHOLOGY AND GENOMIC MEDICINE Specimen Plasma specimen Performing Organization Address City/[facility] Phone Number [facility] DEPARTMENT OF PATHOLOGY AND [address] [place] [address] [facility] Potassium level (10/16/2017 2:08 PM) Potassium 3.8 3.5 - 5.0 mEq/L [facility] DEPARTMENT OF PATHOLOGY AND GENOMIC MEDICINE Specimen Plasma specimen Performing Organization Address [facility] Phone Number [facility] DEPARTMENT OF PATHOLOGY AND [address] [place] [address] [facility] Lactic acid level (10/16/2017 8:56 AM)Only the most recent of8 resultswithin the time period is included. Lactic acid 2.3 (H) 0.5 - 2.2 mmol/L [facility] DEPARTMENT OF PATHOLOGY AND GENOMIC MEDICINE Specimen Blood Performing Organization Address [facility] Phone Number [facility] DEPARTMENT OF PATHOLOGY AND [address] [place] [address] [facility] XR Abdomen 1 Vw (10/15/2017 2:57 PM) Narrative Performed At EXAMINATION:XR ABDOMEN 1 VW [facility] CLINICAL HISTORY:difficulty with drainig PD fluidcheck catheter placement COMPARISON:None. FINDINGS: Findings: The bones demonstrate degenerative changes with abundant spurs. Extensive vascular calcification is present and there is a calcification projecting in the right upper quadrant which has been described previously this appears to be within the liver. A prior CT from December 21, 2016. The abdominal gas pattern is nonspecific with some colon small bowel gas. The catheter projects with its tip curling in the right lower quadrant. IMPRESSION: 1. Tube curling with the tip in the right lower quadrant 2. Nonspecific abdominal gas pattern. [id number] Procedure Note Interface, Radiology Results Incoming - 10/15/2017 3:07 PM CDT EXAMINATION: XR ABDOMEN 1 VW CLINICAL HISTORY: difficulty with drainig PD fluid check catheter placement COMPARISON: None. FINDINGS: Findings: The bones demonstrate degenerative changes with abundant spurs. Extensive vascular calcification is present and there is a calcification projecting in the right upper quadrant which has been described previously this appears to be within the liver. A prior CT from December 21, 2016. The abdominal gas pattern is nonspecific with some colon small bowel gas. The catheter projects with its tip curling in the right lower quadrant. IMPRESSION: 1. Tube curling with the tip in the right lower quadrant 2. Nonspecific abdominal gas pattern. [id number] Performing Organization Address [facility] Phone Number [facility] [address] [place] [address] Pv duplex arterial lower extremity (10/15/2017 2:30 PM) Narrative Performed At [facility] Vascular Ultrasound Laboratory Lower Extremity Arterial Duplex Report [id number], [facility] [address], [place] [address] Pat.Name:JESSE WHIET.ID:[id number] .Date: 10/15/2017 Refer.MD:Lucas Lemus MD Exam Time: 12:49:00 PM Study Type:LE Arterial DOBAge:1945,72YSex: FEMALE Sonogrphr: Pepe Bryant, YANG, CHRISS Pat. Stat.:Inpatient Room:[address] TapeVol: SUZI, CPT - 4: 38536 Echo Event ID:[id number] Order ID:[id number] Reason for Study:Non palpable pulse, PAD, non-healing wound and DM. Procedures:Ankle/brachial pressures, Colorflow, Digit pressures, Grayscale/2D, Non-imaging continuous wave Doppler, PPG waveform tracing, Pulsed wave Doppler, Segmental pressures Race:C SUMMARY: DUPLEX SCAN OBSERVATIONS: RIGHT: There is arterial wall calcification in the common femoral, profunda femoral, superficial femoral, popliteal, tibial and peroneal arteries. Biphasic Doppler signals are noted in the common femoral, profunda femoral, superficial femoral, popliteal, anterior tibial and peroneal arteries. Absent colorflow and Doppler signals are noted in the mid and distal posterior tibial artery. Approximately 50% stenosis in the proximal anterior tibial artery. LEFT: There is arterial wall calcification in the common femoral, profunda femoral, superficial femoral, popliteal andtibial arteries. Triphasic/biphasic Doppler signals are noted in the aforementioned arteries. Absent colorflow and Doppler signals are noted in the mid and distal peroneal artery. ANKLE/BRACHIAL INDEX: RIGHTLEFT Brachial Artery Pressure 90 mmHgIV mmHg DP* mmHg>255mmHg PT* mmHg83 mmHg JOSHUA DP*Unable to Obtain JOSHUA PT*0.92 TOE/BRACHIAL INDEX: Great Toe46 mmHg* mmHg TBI0.51 * PRELIMINARY FINDINGS: RIGHT 1. There is <50% stenosis in the right common femoral, profunda femoral, superficial femoral, popliteal andperoneal arteries. 2. Segment al occlusion of the right mid and distal posterior tibial artery. 3. Approximately 50% stenosis in the proximal anterior tibial artery (ratio 2.0). 4. Unable to obtain JOSHUA in the right leg due to leg pain and wound. 5. Right TBI is within mild range. LEFT 6.There is <50% stenosis in the right common femoral, profunda femoral, superficial femoral, popliteal andtibial arteries. 7. Segment al occlusion of the left mid and distal peroneal artery. 8. Left JOSHUA is within minimal range in the PT (posterior tibial artery) and non-compressible in the DP (dorsalis pedis artery). 9. Unable to obtain left TBI due to flat toe wavefrom. PHYSICIAN INTERPRETATION: Bilateral lower extremity arterial duplex exam demonstrates evidence of diffuse atherosclerotic occlusive disease bilaterally with right posterior tibial artery occlusion, more than 50% stenosis of proximal right anterior tibial artery, and left peroneal artery occlusion. JOSHUA falls within minimal disease category on the left but likely falsely elevated due to calcified vessels. Toe/brachial index is mild on the right and there are flat waveforms on the left. MEASUREMENTS: DOPPLER Right MANAGER PRIMARY CARE prox MANAGER PRIMARY CARE prox PSV74.3 cm/s MANAGER PRIMARY CARE Right MANAGER PRIMARY CARE Prox 60 degLeft MANAGER PRIMARY CARE Dist D60 deg Right Profunda Profunda PSV58.1 cm/s Profunda Right Profunda 60 degLeft Profunda D60 deg Right SFA Dist SFA Dist PSV71.3 cm/s SFA Right SFA Dist 60 degLeft SFA Dist D60 deg Right SFA Mid D60 degLeft SFA Mid Do60 deg Right SFA Prox 60 degLeft SFA Prox D60 deg Right SFA Mid SFA Mid PSV 64.7 cm/s Right SFA Prox SFA Prox PSV62.5 cm/s Right Pop Dist Pop Dist PSV95.2 cm/s Popliteal Right [id number] degLeft Popliteal 60 deg Right [id number] degLeft Popliteal 60 deg Right Pop Prox Pop Prox PSV72.1 cm/s Right MEENU Dist MEENU Dist PSV30.5 cm/s Tibial Art Right Tibial Ar60 degLeft Tibial Art60 deg Right Tibial Ar60 degLeft Tibial Art60 deg Right Tibial Ar60 degLeft Tibial Art60 deg Right MEENU Mid MEENU Mid PSV 69.3 cm/s Right COLOR SEPARATION PHOTOGRAPHER Prox COLOR SEPARATION PHOTOGRAPHER Prox PSV 104 cm/sPTA Prox PSV25.1 cm/s Left SFA Dist SFA Dist PSV73.6 cm/s Left SFA Mid SFA Mid PSV 81.4 cm/s Left SFA Prox SFA Prox PSV74.9 cm/s Left Pop Dist Pop Dist PSV 103 cm/s Left Pop Prox Pop Prox PSV91.9 cm/sPop Prox PSV91.9 cm/s Left MEENU Dist MEENU Dist PSV21.4 cm/s Left MEENU Mid MEENU Mid PSV 55.7 cm/s Left MEENU Prox MEENU Prox PSV82.7 cm/sATA Prox PSV82.7 cm/s Left COLOR SEPARATION PHOTOGRAPHER Mid COLOR SEPARATION PHOTOGRAPHER Mid PSV 26.8 cm/s Tibial Post Left Tibial Pos60 degLeft Tibial Pos60 deg Left COLOR SEPARATION PHOTOGRAPHER Prox COLOR SEPARATION PHOTOGRAPHER Prox PSV26.8 cm/s Left Peroneal Prox Peroneal Prox P75.8 cm/s Peroneal Left Peroneal P60 deg Right MANAGER PRIMARY CARE Mid MANAGER PRIMARY CARE Mid PSV 74.3 cm/s Left MANAGER PRIMARY CARE Mid MANAGER PRIMARY CARE Mid JOR045 cm/s Left Profunda Profunda PSV67.2 cm/s Right COLOR SEPARATION PHOTOGRAPHER Mid COLOR SEPARATION PHOTOGRAPHER Mid PSV0 cm/s Right COLOR SEPARATION PHOTOGRAPHER Distal COLOR SEPARATION PHOTOGRAPHER Distal PSV 0 cm/s Left COLOR SEPARATION PHOTOGRAPHER Distal COLOR SEPARATION PHOTOGRAPHER Distal PSV33.4 cm/s Right Peroneal Prox Peroneal Prox P36.4 cm/s Right Peroneal Mid Peroneal Mid PS28.6 cm/s Left Peroneal Mid Peroneal Mid PS 0 cm/s Right Peroneal Dist Peroneal Dist P30.7 cm/s Left Peroneal Dist Peroneal Dist P 0 cm/s Right MEENU Prox MEENU Prox PSV50.4 cm/s Right MEENU Prox 1 MEENU Prox 1 PSV 104 cm/s Right MEENU Distal MEENU Distal PSV30.5 cm/s Left MEENU Distal MEENU Distal PSV21.4 cm/s Signed 10/16/2017 08:39 AM Sergio Sommers MD, RPVI Procedure Note Interface, Radiology Results In - 10/16/2017 8:40 AM CDT Vascular Ultrasound Laboratory Lower Extremity Arterial Duplex Report [id number] [place] [address] Pat.Name: JESSE WHITE Pat.ID: [id number] St.Date: 10/15/2017 Refer.MD: Lucas Lemus MD Exam Time: 12:49:00 PM Study Type:LE Arterial Age: 11 1945,72Y Sex: FEMALE Sonogrphr: YANG Bridges, CHRISS Pat. Stat.:Inpatient Room: [address] Tape Vol: , CPT - 4: 85538 Echo Event ID:[id number] Order ID: [id number] Reason for Study:Non palpable pulse, PAD, non-healing wound and DM. Procedures:Ankle/brachial pressures, Colorflow, Digit pressures, Grayscale/2D, Non-imaging continuous wave Doppler, PPG waveform tracing, Pulsed wave Doppler, Segmental pressures Race: C SUMMARY: DUPLEX SCAN OBSERVATIONS: RIGHT: There is arterial wall calcification in the common femoral, profunda femoral, superficial femoral, popliteal, tibial and peroneal arteries. Biphasic Doppler signals are noted in the common femoral, profunda femoral, superficial femoral, popliteal, anterior tibial and peroneal arteries. Absent colorflow and Doppler signals are noted in the mid and distal posterior tibial artery. Approximately 50% stenosis in the proximal anterior tibial artery. LEFT: There is arterial wall calcification in the common femoral, profunda femoral, superficial femoral, popliteal and tibial arteries. Triphasic/biphasic Doppler signals are noted in the aforementioned arteries. Absent colorflow and Doppler signals are noted in the mid and distal peroneal artery. ANKLE/BRACHIAL INDEX: RIGHT LEFT Brachial Artery Pressure 90 mmHg IV mmHg DP * mmHg >255mmHg PT * mmHg 83 mmHg JOSHUA DP * Unable to Obtain JOSHUA PT * 0.92 TOE/BRACHIAL INDEX: Great Toe 46 mmHg * mmHg TBI 0.51 * PRELIMINARY FINDINGS: RIGHT 1. There is <50% stenosis in the right common femoral, profunda femoral, superficial femoral, popliteal and peroneal arteries. 2. Segment al occlusion of the right mid and distal posterior tibial artery. 3. Approximately 50% stenosis in the proximal anterior tibial artery (ratio 2.0). 4. Unable to obtain JOSHUA in the right leg due to leg pain and wound. 5. Right TBI is within mild range. LEFT 6. There is <50% stenosis in the right common femoral, profunda femoral, superficial femoral, popliteal and tibial arteries. 7. Segment al occlusion of the left mid and distal peroneal artery. 8. Left JOSHUA is within minimal range in the PT (posterior tibial artery) and non-compressible in the DP (dorsalis pedis artery). 9. Unable to obtain left TBI due to flat toe wavefrom. PHYSICIAN INTERPRETATION: Bilateral lower extremity arterial duplex exam demonstrates evidence of diffuse atherosclerotic occlusive disease bilaterally with right posterior tibial artery occlusion, more than 50% stenosis of proximal right anterior tibial artery, and left peroneal artery occlusion. JOSHUA falls within minimal disease category on the left but likely falsely elevated due to calcified vessels. Toe/brachial index is mild on the right and there are flat waveforms on the left. MEASUREMENTS: DOPPLER Right MANAGER PRIMARY CARE prox MANAGER PRIMARY CARE prox PSV 74.3 cm/s MANAGER PRIMARY CARE Right MANAGER PRIMARY CARE Prox 60 deg Left MANAGER PRIMARY CARE Dist D 60 deg Right Profunda Profunda PSV 58.1 cm/s Profunda Right Profunda 60 deg Left Profunda D 60 deg Right SFA Dist SFA Dist PSV 71.3 cm/s SFA Right SFA Dist 60 deg Left SFA Dist D 60 deg Right SFA Mid D 60 deg Left SFA Mid Do 60 deg Right SFA Prox 60 deg Left SFA Prox D 60 deg Right SFA Mid SFA Mid PSV 64.7 cm/s Right SFA Prox SFA Prox PSV 62.5 cm/s Right Pop Dist Pop Dist PSV 95.2 cm/s Popliteal Right Popliteal 60 deg Left Popliteal 60 deg Right Popliteal 60 deg Left Popliteal 60 deg Right Pop Prox Pop Prox PSV 72.1 cm/s Right MEENU Dist MEENU Dist PSV 30.5 cm/s Tibial Art Right Tibial Ar 60 deg Left Tibial Art 60 deg Right Tibial Ar 60 deg Left Tibial Art 60 deg Right Tibial Ar 60 deg Left Tibial Art 60 deg Right MEENU Mid MEENU Mid PSV 69.3 cm/s Right COLOR SEPARATION PHOTOGRAPHER Prox COLOR SEPARATION PHOTOGRAPHER Prox PSV 104 cm/s COLOR SEPARATION PHOTOGRAPHER Prox PSV 25.1 cm/s Left SFA Dist SFA Dist PSV 73.6 cm/s Left SFA Mid SFA Mid PSV 81.4 cm/s Left SFA Prox SFA Prox PSV 74.9 cm/s Left Pop Dist Pop Dist PSV 103 cm/s Left Pop Prox Pop Prox PSV 91.9 cm/s Pop Prox PSV 91.9 cm/s Left MEENU Dist MEENU Dist PSV 21.4 cm/s Left MEENU Mid MEENU Mid PSV 55.7 cm/s Left MEENU Prox MEENU Prox PSV 82.7 cm/s MEENU Prox PSV 82.7 cm/s Left COLOR SEPARATION PHOTOGRAPHER Mid COLOR SEPARATION PHOTOGRAPHER Mid PSV 26.8 cm/s Tibial Post Left Tibial Pos 60 deg Left Tibial Pos 60 deg Left COLOR SEPARATION PHOTOGRAPHER Prox COLOR SEPARATION PHOTOGRAPHER Prox PSV 26.8 cm/s Left Peroneal Prox Peroneal Prox P 75.8 cm/s Peroneal Left Peroneal P 60 deg Right MANAGER PRIMARY CARE Mid MANAGER PRIMARY CARE Mid PSV 74.3 cm/s Left MANAGER PRIMARY CARE Mid MANAGER PRIMARY CARE Mid PSV 105 cm/s Left Profunda Profunda PSV 67.2 cm/s Right COLOR SEPARATION PHOTOGRAPHER Mid COLOR SEPARATION PHOTOGRAPHER Mid PSV 0 cm/s Right COLOR SEPARATION PHOTOGRAPHER Distal COLOR SEPARATION PHOTOGRAPHER Distal PSV 0 cm/s Left COLOR SEPARATION PHOTOGRAPHER Distal COLOR SEPARATION PHOTOGRAPHER Distal PSV 33.4 cm/s Right Peroneal Prox Peroneal Prox P 36.4 cm/s Right Peroneal Mid Peroneal Mid PS 28.6 cm/s Left Peroneal Mid Peroneal Mid PS 0 cm/s Right Peroneal Dist Peroneal Dist P 30.7 cm/s Left Peroneal Dist Peroneal Dist P 0 cm/s Right MEENU Prox MEENU Prox PSV 50.4 cm/s Right MEENU Prox 1 MEENU Prox 1 PSV 104 cm/s Right MEENU Distal MEENU Distal PSV 30.5 cm/s Left MEENU Distal MEENU Distal PSV 21.4 cm/s Signed 10/16/2017 08:39 AM Sergio Sommers MD, RPVI Performing Organization Address [facility] Phone Number [facility] [address] [place] [address] MRI Lower Extremity Wo Contrast Right (10/14/2017 4:41 PM) Narrative Performed At EXAMINATION:MRI LOWER EXTREMITY WO CONTRAST RIGHT [facility] CLINICAL HISTORY: please evaluate for osteomyelitishistory of nocaridia COMPARISON:None. Technique: Multiplanar imaging of the right lower extremity was performed without intravenous or intra-articular contrast. Study extends from the level of the knee to the level of the ankle. FINDINGS: 1.No focal bone marrow abnormalities identified to suggest fracture, osteomyelitis, or significant bone marrow edema. 2.1.5 cm subcutaneous structure posteromedially is probably related to a thrombosed superficial varix although this can be confirmed with ultrasound if warranted. This does not extend into the deeper tissues. 3.There is some muscular atrophy, but no intramuscular fluid collection or hematoma is noted. IMPRESSION: No evidence of osteomyelitis. Subcutaneous structure medially probably represents a thrombosed superficial varix. [id number] Procedure Note Interface, Radiology Results Incoming - 10/14/2017 4:55 PM CDT EXAMINATION: MRI LOWER EXTREMITY WO CONTRAST RIGHT CLINICAL HISTORY: please evaluate for osteomyelitis history of nocaridia COMPARISON: None. Technique: Multiplanar imaging of the right lower extremity was performed without intravenous or intra-articular contrast. Study extends from the level of the knee to the level of the ankle. FINDINGS: 1. No focal bone marrow abnormalities identified to suggest fracture, osteomyelitis, or significant bone marrow edema. 2. 1.5 cm subcutaneous structure posteromedially is probably related to a thrombosed superficial varix although this can be confirmed with ultrasound if warranted. This does not extend into the deeper tissues. 3. There is some muscular atrophy, but no intramuscular fluid collection or hematoma is noted. IMPRESSION: No evidence of osteomyelitis. Subcutaneous structure medially probably represents a thrombosed superficial varix. [id number] Performing Organization Address [facility]/Zipcode Phone Number [facility] [address] [place] [address] Pv carotid duplex (10/13/2017 5:41 PM) Narrative Performed At [facility] Vascular Ultrasound Laboratory Carotid Artery Duplex Report [id number] [place] [address] For software quality test engineer purposes, the categorization of the degree of the stenosis of this exam is based on criteria described in the IAC carotid stenosis grading white paper( www.intersocietal.org/Vascular) and Mikayla Mendoza., Christian Patton, et al. Carotid artery stenosis: paulson-scale and Doppler US diagnosis--Society of Radiologists in Ultrasound Consensus Conference. Radiology. 2003 Nov; 229(2):340-6. Pat.Name:JESSE WHITE.ID:[id number] .Date: 10/13/2017 Refer.MD:MANJU LEONG MD Exam Time: 4:08:00 PMStudy Type:Carotid DOBAge:1945,72YSex: FEMALE Sonogrphr: Eliel Penn, RVTPat. Stat.:Inpatient Room:[address] TapeVol: , CPT - 4: 04230 Echo Event ID:[id number] Order ID:[id number] Reason for Study:Patient had suncope. History of DM type 2, HTN, ESRD on PD, HLD, and cholelithiasis. Procedures:Colorflow, Grayscale/2D Race:C SUMMARY: PHYSICAL ASSESSMENT BloodPulsesCarotid Pressure Carotid TemporalBruit Right 84/44 ++0 Left ___ ++0 CAROTID ARTERY SCAN RIGHT: There is minimal hard and calcified plaque seen in the common carotid artery. There is hard and calcified plaque seen in the bulb area extending into proximal internal and external carotid artery. Elevated velocity is seen in the proximal and distal internal carotid artery, and proximal external carotid artery. Colorflow and Doppler signals are disturbed. There is antegrade flow seen in the vertebral artery. The internal carotid artery is tortuous. LEFT: There is smooth intimal lining seen in the common carotid artery. There is hard and calcified plaque seen in the bulb area extending into proximal internal and external carotid artery. Elevated velocity is seen in the proximal and distal internal carotid artery, and proximal external carotid artery. Colorflow and Doppler signals are disturbed. There is antegrade flow seen in the vertebral artery. The internal carotid artery is tortuous. PRELIMINARY FINDINGS 1. <50% stenosis of internal carotid artery, bilaterally. 2. >50% stenosis of external carotid artery, bilaterally. 3. Elevated velocity is seen in the proximal and distal internal carotid artery, bilaterally. 4. Antegrade flow seen in the vertebral artery, bilaterally. 5. The internal carotid artery is tortuous, bilaterally. PHYSICIAN INTERPRETATION Bilateral carotid duplex examination demonstrated atherosclerotic plaques in the bulbs and internal carotid arteries with less than 50% stenosis bilaterally. More than 50% stenosis of external carotid arteries bilaterally. Both vertebral arteries are antegrade. Carotid Findings:RightLetalia Gamingb.Flw AntegradeAntegrade Subclavian TriphasicTriphasic MEASUREMENTS: DOPPLER Right CCA Dist CCA Dist PSV74.2 cm/sCCA Dist EDV10.3 cm/s Right CCA Mid CCA Mid PSV 86 cm/sCCA Mid EDV 12.9 cm/s Right CCA Prox CCA Prox PSV84.6 cm/sCCA Prox EDV 9 cm/s Right ECA Prox ECA Prox PSV 244 cm/sECA Prox EDV 0 cm/s Right ICA Dist ICA Dist PSV 146 cm/[place]erson Dist EDV34.6 cm/s Right ICA Mid ICA Mid [id number] cm/[place]erson Mid EDV 27.4 cm/s Right ICA Prox ICA Prox PSV 138 cm/[place]erson Prox EDV25.4 cm/s Right Vertebral Vertebral PSV 74.1 cm/sVertebral EDV 14.4 cm/s Right Subclavian Subclavian PSV 161 cm/s Left CCA Dist CCA Dist PSV80.1 cm/sCCA Dist EDV16.7 cm/s Left CCA Mid CCA Mid PSV 73.6 cm/sCCA Mid EDV 12.8 cm/s Left CCA Prox CCA Prox PSV85.4 cm/sCCA Prox EDV14.4 cm/s Left ECA Prox ECA Prox PSV 248 cm/sECA Prox EDV 0 cm/s Left ICA Dist ICA Dist PSV 141 cm/[place]erson Dist EDV36.9 cm/s Left ICA Mid ICA Mid [id number] cm/[place]erson Mid EDV 25.4 cm/s Left ICA Prox ICA Prox PSV 131 cm/[place]erson Prox EDV13.7 cm/s Left Vertebral Vertebral PSV 83.8 cm/sVertebral EDV 16 cm/s Left Subclavian Subclavian PSV 167 cm/s Right ICA/CCA Ratio ICA/CCA PSV1.6 Left ICA/CCA Ratio ICA/CCA PSV 1.78 Signed 10/13/2017 10:06 PM Sergio Sommers MD, RPVI Procedure Note Interface, Radiology Results In - 10/13/2017 10:06 PM CDT Vascular Ultrasound Laboratory Carotid Artery Duplex Report [id number] [place] [address] For software quality test engineer purposes, the categorization of the degree of the stenosis of this exam is based on criteria described in the IAC carotid stenosis grading white paper( www.intersocietal.org/Vascular) and Mikayla Mendoza., Matias Patton., et al. Carotid artery stenosis: paulson-scale and Doppler US diagnosis--Society of Radiologists in Ultrasound Consensus Conference. Radiology. 2003 Nov; 229(2):340-6. Pat.Name: JESSE WHITE Pat.ID: [id number] St.Date: 10/13/2017 Refer.MD: MANJU LEONG MD Exam Time: 4:08:00 PM Study Type:Carotid Age: 11 1945,72Y Sex: FEMALE Sonogrphr: Eliel Penn, RVT Pat. Stat.:Inpatient Room: [address] Tape Vol: HV, CPT - 4: 37591 Echo Event ID:[id number] Order ID: [id number] Reason for Study:Patient had suncope. History of DM type 2, HTN, ESRD on PD, HLD, and cholelithiasis. Procedures:Colorflow, Grayscale/2D Race: C SUMMARY: PHYSICAL ASSESSMENT Blood Pulses Carotid Pressure Carotid Temporal Bruit Right 84/44 + + 0 Left ___ + + 0 CAROTID ARTERY SCAN RIGHT: There is minimal hard and calcified plaque seen in the common carotid artery. There is hard and calcified plaque seen in the bulb area extending into proximal internal and external carotid artery. Elevated velocity is seen in the proximal and distal internal carotid artery, and proximal external carotid artery. Colorflow and Doppler signals are disturbed. There is antegrade flow seen in the vertebral artery. The internal carotid artery is tortuous. LEFT: There is smooth intimal lining seen in the common carotid artery. There is hard and calcified plaque seen in the bulb area extending into proximal internal and external carotid artery. Elevated velocity is seen in the proximal and distal internal carotid artery, and proximal external carotid artery. Colorflow and Doppler signals are disturbed. There is antegrade flow seen in the vertebral artery. The internal carotid artery is tortuous. PRELIMINARY FINDINGS 1. <50% stenosis of internal carotid artery, bilaterally. 2. >50% stenosis of external carotid artery, bilaterally. 3. Elevated velocity is seen in the proximal and distal internal carotid artery, bilaterally. 4. Antegrade flow seen in the vertebral artery, bilaterally. 5. The internal carotid artery is tortuous, bilaterally. PHYSICIAN INTERPRETATION Bilateral carotid duplex examination demonstrated atherosclerotic plaques in the bulbs and internal carotid arteries with less than 50% stenosis bilaterally. More than 50% stenosis of external carotid arteries bilaterally. Both vertebral arteries are antegrade. Carotid Findings: Right Left Verteb.Flw Antegrade Antegrade Subclavian Triphasic Triphasic MEASUREMENTS: DOPPLER Right CCA Dist CCA Dist PSV 74.2 cm/s CCA Dist EDV 10.3 cm/s Right CCA Mid CCA Mid PSV 86 cm/s CCA Mid EDV 12.9 cm/s Right CCA Prox CCA Prox PSV 84.6 cm/s CCA Prox EDV 9 cm/s Right ECA Prox ECA Prox PSV 244 cm/s ECA Prox EDV 0 cm/s Right ICA Dist ICA Dist PSV 146 cm/s ICA Dist EDV 34.6 cm/s Right ICA Mid ICA Mid PSV 114 cm/s ICA Mid EDV 27.4 cm/s Right ICA Prox ICA Prox PSV 138 cm/s ICA Prox EDV 25.4 cm/s Right Vertebral Vertebral PSV 74.1 cm/s Vertebral EDV 14.4 cm/s Right Subclavian Subclavian PSV 161 cm/s Left CCA Dist CCA Dist PSV 80.1 cm/s CCA Dist EDV 16.7 cm/s Left CCA Mid CCA Mid PSV 73.6 cm/s CCA Mid EDV 12.8 cm/s Left CCA Prox CCA Prox PSV 85.4 cm/s CCA Prox EDV 14.4 cm/s Left ECA Prox ECA Prox PSV 248 cm/s ECA Prox EDV 0 cm/s Left ICA Dist ICA Dist PSV 141 cm/s ICA Dist EDV 36.9 cm/s Left ICA Mid ICA Mid PSV 116 cm/s ICA Mid EDV 25.4 cm/s Left ICA Prox ICA Prox PSV 131 cm/s ICA Prox EDV 13.7 cm/s Left Vertebral Vertebral PSV 83.8 cm/s Vertebral EDV 16 cm/s Left Subclavian Subclavian PSV 167 cm/s Right ICA/CCA Ratio ICA/CCA PSV 1.6 Left ICA/CCA Ratio ICA/CCA PSV 1.78 Signed 10/13/2017 10:06 PM Sergio Sommers MD, RPVI Performing Organization Address City/State/Zipcode Phone Number [facility] [address] [place] [address] Troponin (10/13/2017 4:26 AM)Only the most recent of4 resultswithin the time period is included. Troponin <0.30 0.00 - 0.30 ng/mL [facility] DEPARTMENT OF PATHOLOGY Comment: AND GENOMIC MEDICINE 0.30 - 1.49 ng/mlMay indicate increased risk of acute coronary syndrome. >=1.5 ng/mlConsistent with acute myocardial infarction. The diagnostic value of a single normal or non-diagnostic result is questionable.Serial samples at 2-6 hour intervals are required to rule out acute myocardial injury. Specimen Plasma specimen Performing Organization Address [facility] Phone Number [facility] DEPARTMENT OF PATHOLOGY AND [address] [place] [address] Hepatitis B surface antigen (10/13/2017 4:26 AM)Only the most recent of3 resultswithin the time period is included. Hepatitis B surface Ag Non-reactive Non-reactive [facility] DEPARTMENT OF PATHOLOGY AND [facility] Specimen Blood Performing Organization Address [facility] Phone Number [facility] DEPARTMENT OF PATHOLOGY AND [address] [place] [address] Sedimentation rate (10/13/2017 4:26 AM)Only the most recent of3 resultswithin the time period is included. Sedimentation rate 140 (H) 0 - 20 mm/hr [facility] DEPARTMENT OF PATHOLOGY AND [facility] Specimen Blood Performing Organization Address [facility] Phone Number [facility] DEPARTMENT OF PATHOLOGY AND [address] [place] [address] C-reactive protein (10/13/2017 4:26 AM)Only the most recent of3 resultswithin the time period is included. CRP 2.13 (H) 0.00 - 0.50 mg/dL [facility] DEPARTMENT OF PATHOLOGY AND [facility] Specimen Plasma specimen Performing Organization Address [facility] Phone Number [facility] DEPARTMENT OF PATHOLOGY AND [address] [place] [address] MRI Brain Wo Contrast (10/12/2017 8:22 PM)Only the most recent of2 resultswithin the time period is included. Narrative Performed At EXAMINATION:MRI BRAIN WO CONTRAST [facility] CLINICAL HISTORY:CVA COMPARISON:10/12/2017 CT. July 18, 2017 MRI Findings: No intracranial hemorrhage, extra-axial fluid collections or parenchymal mass lesions. No hydrocephalus. No suspicious focal bone marrow lesions. Chronic right pontine infarct. No acute ischemia. Mild chronic ischemic small vessel white matter changes. Stable small focus of susceptibility in the superficial right parietal lobe may be due to chronic hemorrhagic insult or small cavernous malformation. Major flow voids are maintained. IMPRESSION: No acute intracranial abnormalities or mass lesions. [facility]-[id number] Procedure Note Interface, Radiology Results Incoming - 10/12/2017 8:46 PM CDT EXAMINATION: MRI BRAIN WO CONTRAST CLINICAL HISTORY: CVA COMPARISON: 10/12/2017 CT. July 18, 2017 MRI Findings: No intracranial hemorrhage, extra-axial fluid collections or parenchymal mass lesions. No hydrocephalus. No suspicious focal bone marrow lesions. Chronic right pontine infarct. No acute ischemia. Mild chronic ischemic small vessel white matter changes. Stable small focus of susceptibility in the superficial right parietal lobe may be due to chronic hemorrhagic insult or small cavernous malformation. Major flow voids are maintained. IMPRESSION: No acute intracranial abnormalities or mass lesions. [facility]-[id number] Performing Organization Address City/State/Zipcode Phone Number [facility] [address] [facility] [place] [address] Echocardiogram complete w contrast and 3D if needed (10/12/2017 6:28 PM) Narrative Performed At [facility] Echocardiography Report [id number], [facility] [address] [address] Pat.Name:JESSE WHITE.ID:[id number] .Date: 10/12/2017 Refer.MD:Robert Leong MD Exam Time: 5:32:00 PMStudy Type:Routine Echo Height:59inDOBAge: 1945,72Y Sex: FEMALEHR:75 bpm Sonogrphr: CHRISS Worthy Pat. Stat.:Inpatient Room:[address] Study Status:Final Echo Event ID:[id number] Order ID:[id number] Reason for Study:CHF Procedures:2D Echo, Colorflow Doppler Race:C SUMMARY: LV EF is hyperdynamic. RV systolic function is normal. FINDINGS: LV: LV size is normal. LV EF is hyperdynamic with cavity obliteration.Overall wall motion is hyperdynamic. EstimatedEF is >70%. 20mmHg intra-cavitary gradient. RV: RV size is normal. RV systolic function is normal. LA: LA volume is mildly enlarged. RA: RA size is normal. AO: Aortic root diameter is normal. FELIPE: No pericardial effusion. AV: No structural AV abnormalities noted. MV: Mild calcification of mitral leaflets. Mild mitral annular calcification. PV: Pulmonic valve not well seen. TV: No structural TV abnormalities noted. Mild tricuspid regurgitation Baptiste: LV relaxation is impaired. LV filling pressure is normal. Hepaticvein pressure is normal, RA pressure < 5mmHg. Other:Insufficient TR jet to estimate PA systolic pressure. MEASUREMENTS: 2D Parasternal [place] LVOT 1.9 cmLVPWd1.2 cm LVIDd3.6 cmLA Ds2.6 cm LVIDs1.8 cmAo Rtd 3.7 cm LV%fs 49.4 % LV Qbur970.1 g(87-129) IVSd 1.1 cmRWT0.7 LA Sng Plane LA Area 20.5 cm2(8.8-23.4) LA Vol66.8 ml LA LngAx 5.2 cm DOPPLER LVOT For Flow LVOT Area2.8 cm2 LVOT TVI21.9 cm JNCGrkWhs426.6 cm/sLVOT SV 62 ml LVOTpkPG 4.1 jxBsCK84.2 bpm LVOTmnPG 2.1 mmHgLVOT CO4.4 l/min Signed 10/15/2017 12:53 PM Federico Alvarado MD Procedure Note Interface, Radiology Results In - 10/15/2017 12:54 PM CDT Echocardiography Report [id number] [address] Pat.Name: JESSE WHITE Pat.ID: [id number] .Date: 10/12/2017 Refer.MD: Robert Leong MD Exam Time: 5:32:00 PM Study Type:Routine Echo Height: 59in Age: 11 1945,72Y Sex: FEMALE HR: 75 bpm Sonogrphr: CHRISS Worthy. Stat.:Inpatient Room: [address] Study Status:Final Echo Event ID:[id number] Order ID: [id number] Reason for Study:CHF Procedures:2D Echo, Colorflow Doppler Race: C SUMMARY: LV EF is hyperdynamic. RV systolic function is normal. FINDINGS: LV: LV size is normal. LV EF is hyperdynamic with cavity obliteration. Overall wall motion is hyperdynamic. Estimated EF is >70%. 20mmHg intra-cavitary gradient. RV: RV size is normal. RV systolic function is normal. LA: LA volume is mildly enlarged. RA: RA size is normal. AO: Aortic root diameter is normal. FELIPE: No pericardial effusion. AV: No structural AV abnormalities noted. MV: Mild calcification of mitral leaflets. Mild mitral annular calcification. PV: Pulmonic valve not well seen. TV: No structural TV abnormalities noted. Mild tricuspid regurgitation Baptiste: LV relaxation is impaired. LV filling pressure is normal. Hepatic vein pressure is normal, RA pressure < 5mmHg. Other: Insufficient TR jet to estimate PA systolic pressure. MEASUREMENTS: 2D Parasternal [place] LVOT 1.9 cm LVPWd 1.2 cm LVIDd 3.6 cm LA Ds 2.6 cm LVIDs 1.8 cm Ao Rtd 3.7 cm LV%fs 49.4 % LV Mass 138.1 g (87-129) IVSd 1.1 cm RWT 0.7 LA Sng Plane LA Area 20.5 cm2 (8.8-23.4) LA Vol 66.8 ml LA LngAx 5.2 cm DOPPLER LVOT For Flow LVOT Area 2.8 cm2 LVOT TVI 21.9 cm LVOTpkVel 101.6 cm/s LVOT SV 62 ml LVOTpkPG 4.1 mmHg HR 71.2 bpm LVOTmnPG 2.1 mmHg LVOT CO 4.4 l/min Signed 10/15/2017 12:53 PM Federico Alvarado MD Performing Organization Address City/State/Zipcode Phone Number [facility] [address] [place] [address] CT Head Wo Contrast (10/12/2017 3:43 PM) Narrative Performed At EXAMINATION:CT HEAD WO CONTRAST [facility] CLINICAL HISTORY:Head traumaataxia, Syncopesimplenormal neuro exam COMPARISON:MRI brain 07/18/2017. TECHNIQUE: Noncontrast head CT performed using radiation dose reduction techniques.Technical factors are evaluated and adjusted to ensure appropriate moderation of exposure.Automated dose management technology is applied to adjust radiation exposure while achieving a diagnostic quality image. FINDINGS: There is newly appearing focal hyperattenuation within the right central kiki (image 20 of series 2 when compared with the prior MRI from 07/18/2017, suspicious for recent infarction given the reported history of ataxia. No acute intra or extra-axial hemorrhage identified. The remaining paulson-white matter differentiation is preserved. No mass, mass effect, or midline shift is seen. Stable scattered hypoattenuation is noted throughout the periventricular and subcortical white matter, nonspecific but likely related to chronic microvascular ischemic changes.Ventricles and sulci are normal in appearance for patient's age.Basal cisterns are patent. Tram track vascular calcifications are noted throughout the V4 segments and cavernous internal carotid arteries bilaterally. Calvarium is intact. The orbital contents are symmetric and normal in appearance. Opacification of the left sphenoid sinus. The remaining paranasal sinuses are unremarkable. The mastoid air cells and middle ear cavities are clear. Scalp soft tissues are unremarkable. IMPRESSION: Interval appearance of right pontine hypoattenuation when compared to the prior MRI from 07/18/2017, suspicious for recent infarction. If further characterization is clinically desired, MRI brain with diffusion weighted sequence can be performed for additional diagnostic detail. These findings were discussed with Dr. Najera at 1550 hours on 10/12/2017 who verbalized understanding. [id number] Procedure Note Hm Interface, Radiology Results Incoming - 10/12/2017 3:57 PM CDT EXAMINATION: CT HEAD WO CONTRAST CLINICAL HISTORY: Head trauma ataxia, Syncope simple normal neuro exam COMPARISON: MRI brain 07/18/2017. TECHNIQUE: Noncontrast head CT performed using radiation dose reduction techniques. Technical factors are evaluated and adjusted to ensure appropriate moderation of exposure. Automated dose management technology is applied to adjust radiation exposure while achieving a diagnostic quality image. FINDINGS: There is newly appearing focal hyperattenuation within the right central kiki ( image 20 of series 2 when compared with the prior MRI from 07/18/2017, suspicious for recent infarction given the reported history of ataxia. No acute intra or extra-axial hemorrhage identified. The remaining paulson-white matter differentiation is preserved. No mass, mass effect, or midline shift is seen. Stable scattered hypoattenuation is noted throughout the periventricular and subcortical white matter, nonspecific but likely related to chronic microvascular ischemic changes. Ventricles and sulci are normal in appearance for patient's age. Basal cisterns are patent. Tram track vascular calcifications are noted throughout the V4 segments and cavernous internal carotid arteries bilaterally. Calvarium is intact. The orbital contents are symmetric and normal in appearance. Opacification of the left sphenoid sinus. The remaining paranasal sinuses are unremarkable. The mastoid air cells and middle ear cavities are clear. Scalp soft tissues are unremarkable. IMPRESSION: Interval appearance of right pontine hypoattenuation when compared to the prior MRI from 07/18/2017, suspicious for recent infarction. If further characterization is clinically desired, MRI brain with diffusion weighted sequence can be performed for additional diagnostic detail. These findings were discussed with Dr. Najera at 1550 hours on 10/12/2017 who verbalized understanding. [facility]-[id number] Performing Organization Address City/State/Zipcode Phone Number [facility] [address] [place] [address] Blood culture, aerobic (10/12/2017 3:15 PM) Blood culture isolate, No growth after 5 days of incubation. [facility] DEPARTMENT OF aerobic Comment: PATHOLOGY AND GENOMIC Specimen Information MEDICINE Specimen Source: Blood Specimen Site: Wrist, right Specimen Blood - Wrist, right Performing Organization Address City/State/[facility] Phone Number [facility] DEPARTMENT OF PATHOLOGY AND [address] [place] [address] [facility] Hemoglobin A1c (10/12/2017 3:15 PM)Only the most recent of3 resultswithin the time period is included. Hemoglobin A1C 7.4 (H) 4.0 - 5.6 % [facility] DEPARTMENT OF PATHOLOGY Comment: AND morphCARD [facility] HbA1c cutoffs for diagnosing diabetes: 4.0% - 5.6%=normal 5.7% - 6.4%=increased risk for diabetes (prediabetes) >=6.5%=diabetes Goals for glycemic control (ADA 2016) < 7.0%Target for non adults with diabetes. More or less stringent targets may be appropriate for individual patients. <7.5% Target for Children and adolescents with type 1 diabetes. Specimen Blood Performing Organization Address City/State/[facility] Phone Number [facility] DEPARTMENT OF PATHOLOGY AND [address] [place] [address] [facility] Lipid panel (10/12/2017 3:15 PM)Only the most recent of2 resultswithin the time period is included. Cholesterol 147 <200 mg/dL [facility] DEPARTMENT OF PATHOLOGY AND GENOMIC MEDICINE Triglycerides 143 <150 mg/dL [facility] DEPARTMENT OF PATHOLOGY AND GENOMIC MEDICINE HDL cholesterol 52 >40 mg/dL [facility] DEPARTMENT OF PATHOLOGY AND GENOMIC MEDICINE LDL cholesterol 71Comment: Result <100 mg/dL [facility] DEPARTMENT OF obtained by direct LDL PATHOLOGY AND GENOMIC measurement MEDICINE Lipid panel interpretation SeeBelow [facility] DEPARTMENT OF Comment: PATHOLOGY AND GENOMIC Total Cholesterol (mg/dL) MEDICINE <200 Desirable 969-970Zkwfpgsnwp-sswh >=240High Triglycerides (mg/dL) <150 Normal 055-757Cmndconcae-tnlf 200-499High >=500Very high HDL Cholesterol (mg/dL) <40Low (male) <40Low (female) LDL Cholesterol (mg/dL) <100 Optimal 100-129Near or above optimal 748-379Hmbfkcvakz-jecg 160-189High >=190Very high Risk Catergories that modify [...] persons with high triglycerides (>=200 mg/dL) Specimen Plasma specimen Performing Organization Address [facility] Phone Number [facility] DEPARTMENT OF PATHOLOGY AND [address] [place] [address] morphCARD MEDICINE ECG ED Preliminary Interpretation - NOT AN ORDER (10/12/2017 1:41 PM) Narrative Performed At Kori Najera MD 10/13/2017 10:06 AM ECG ED Preliminary Interpretation - Not an Order Performed by: KORI NAJERA Authorized by: KORI NAJERA ECG reviewed by ED Physician in the absence of a family 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 Previous ECG: Previous ECG:Unavailable Interpretation: Interpretation: non-specific Rate: ECG rate:75 ECG rate assessment: normal Rhythm: Rhythm: sinus rhythm Ectopy: Ectopy: none QRS: QRS axis:Normal Conduction: Conduction: normal ST segments: ST segments:Normal T waves: T waves: normal Comments: Corrective QT interval is 513 B natriuretic peptide (10/12/2017 1:05 PM) BNP 73 0 - 100 pg/mL [facility] DEPARTMENT OF PATHOLOGY AND morphCARD MEDICINE Specimen Blood Performing Organization Address [facility] Phone Number [facility] DEPARTMENT OF PATHOLOGY AND [address] [place] [address] Echocardiogram complete w contrast and 3D if needed (07/20/2017 9:37 AM) Narrative Performed At [facility] Echocardiography Report [id number]Name:JESSE WHITE.ID:[id number] .Date: 07/20/2017 Refer.MD:YOSVANY FISHER Exam Time: 8:46:00 AMStudy Type:Routine Echo Height:59inWeight: 182lb BSA: 1.77 m2 DOBAge:1945,72Y Sex: FEMALEBP:93/58 HR:64 bpm Sonogrphr: CHRISS Regan/ Aba Hernández MD [facility]. Stat.:Inpatient Room:M681A Study Status:Final Echo Event ID:[id number] Order ID:[id number] Reason for Study:Stoke Eval Procedures:2D Echo, Colorflow [...] PA systolic pressure. MEASUREMENTS: 2D Parasternal [place] LVOT 1.8 cmLA Ds3.1 cm LVIDd3.3 cmIndex1.8 cm/m Ao Rtd 2.8 cm Index1.6 cm/m LVIDs2.3 cmLV Oinb520.8 g(87-129) LV%fs 28.3 % LVM Index 70 g/m2 IVSd 1.2 cmRWT0.7 LVPWd1.2 cm LA Sng Plane LA Area 16.5 cm2(8.8-23.4) LA Vol44.6 ml Index25.2 ml/m LA LngAx 5.1 cm Signed 07/20/2017 06:13 PM Tiesha Patterson M.D. Procedure Note Interface, Radiology Results In - 07/20/2017 6:13 PM CDT Echocardiography Report [address] [place] [address] Pat.Name: JESSE WHITE Pat.ID: [id number] .Date: 07/20/2017 Refer.MD: YOSVANY FISHER Exam Time: 8:46:00 AM Study Type:Routine Echo Height: 59in Weight: 182lb BSA: 1.77 m2 Age: 11 1945,72Y Sex: FEMALE BP: 93/58 HR: 64 bpm Sonogrphr: CHRISS Regan/ Aba Hernández MD Pat. Stat.:Inpatient Room: [facility] Study Status:Final Echo Event ID:[id number] Order ID: [id number] Reason for Study:Chad Evjam Procedures:2D Echo, Colorflow Doppler, Intravenous Definity Contrast [...] PA systolic pressure. MEASUREMENTS: 2D Parasternal [place] LVOT 1.8 cm LA Ds 3.1 cm [...] PM Tiesha Patterson M.D. Performing Organization Address City/[facility] Phone Number [facility] [address] [place] [address] Phosphorus level (07/20/2017 4:00 AM)Only the most recent of3 resultswithin the time period is included. Phosphorus 7.7 (H) 2.4 - 4.5 mg/dL [facility] DEPARTMENT OF PATHOLOGY AND GENOMIC MEDICINE Specimen Plasma specimen Narrative Performed At MG and PHOS added per Rufina Ho/GERARDO in [facility] DEPARTMENT OF PATHOLOGY AND GENOMIC M6SW at 07/20/17 0730 by [facility]. MEDICINE LACID RESULT CALLED TO AND READ BACK BY RUFINA GRADY/RINKU AT07/20/2017 07:32 BY AU Performing Organization Address [facility] Phone Number [facility] DEPARTMENT OF PATHOLOGY AND [address] [place] [address] GENOMIC MEDICINE Magnesium level (07/20/2017 4:00 AM)Only the most recent of3 resultswithin the time period is included. Magnesium 2.6 (H) 1.6 - 2.4 mg/dL [facility] DEPARTMENT OF PATHOLOGY AND GENOMIC MEDICINE Specimen Plasma specimen Narrative Performed At MG and PHOS added per Rufina Ho/GERARDO in [facility] DEPARTMENT OF PATHOLOGY AND GENOMIC M6SW at 07/20/17 0730 by [facility]. MEDICINE LACID RESULT CALLED TO AND READ BACK BY RUFINA GRADY/M6SW AT07/20/2017 07:32 BY AU Performing Organization Address [facility] Phone Number [facility] DEPARTMENT OF PATHOLOGY AND [address] [phone] [facility] XR Chest 2 Vw (07/18/2017 11:12 AM) Narrative Performed At EXAMINATION:XR CHEST 2 VW [facility] CLINICAL HISTORY:leukocytosis COMPARISON:None. IMPRESSION: The cardiomediastinal silhouette and central vasculature are within normal limits. Atherosclerotic calcifications in the thoracic aorta which is tortuous. The lungs are clear. Degenerative changes in the spine. [id number] Procedure Note [facility], Radiology Results Incoming - 07/18/2017 11:36 AM CDT EXAMINATION: XR CHEST 2 VW CLINICAL HISTORY: leukocytosis COMPARISON: None. IMPRESSION: The cardiomediastinal silhouette and central vasculature are within normal limits. Atherosclerotic calcifications in the thoracic aorta which is tortuous. The lungs are clear. Degenerative changes in the spine. [id number] Performing Organization Address [facility] Phone Number [facility] [address] [place] [address] MRA Neck Wo Contrast (07/18/2017 10:25 AM) Narrative Performed At EXAMINATION:MRA NECK WO CONTRAST [facility] CLINICAL HISTORY:stroke eval COMPARISON: No previous angiogram for comparison. FINDINGS: Noncontrast 2-D and 3-D jwnd-ri-autsjn MRA of the neck is performed. Source [...] in the carotid bulbs with mild stenosis. [facility]-[id number] Procedure Note Interface, Radiology Results Incoming - 07/18/2017 10:50 AM CDT EXAMINATION: MRA NECK WO CONTRAST CLINICAL HISTORY: stroke eval COMPARISON: No previous angiogram for comparison. FINDINGS: Noncontrast 2-D and 3-D uhlu-qh-grwpzi MRA of the neck is performed. Source [...] in the carotid bulbs with mild stenosis. [facility]-[id number] Performing Organization Address City/State/Zipcode Phone Number [facility] [address] [place] [address] MRA Head Wo Contrast (07/18/2017 10:19 AM) Narrative Performed At EXAMINATION:MRA HEAD WO CONTRAST [facility] CLINICAL HISTORY:stroke eval COMPARISON: No previous angiogram. MRI brain exam dated 07/18/2017. FINDINGS: Noncontrast 3-D ftre-co-paptso MRA of the head is performed. Source images and three-dimensional reformats are provided. There is no proximal branch occlusion or high-grade stenosis. Minimal atherosclerotic narrowing is noted within the proximal right MCA M1 segment. Minimal atherosclerotic narrowing is noted within the left INSIDE SALES ACCOUNT REPRESENTATIVE P2 segment proximally. There is an anterior communicating artery. No aneurysm or vascular malformation is identified. IMPRESSION: Minimal intracranial atherosclerotic changes without proximal branch occlusion or high-grade stenosis. [facility]-[id number] Procedure Note Interface, Radiology Results Incoming - 07/18/2017 10:27 AM CDT EXAMINATION: MRA HEAD WO CONTRAST CLINICAL HISTORY: stroke eval COMPARISON: No previous angiogram. MRI brain exam dated 07/18/2017. FINDINGS: Noncontrast 3-D jdff-yb-ccpynm MRA of the head is performed. Source images and three-dimensional reformats are provided. There is no proximal branch occlusion or high-grade stenosis. Minimal atherosclerotic narrowing is noted within the proximal right MCA M1 segment. Minimal atherosclerotic narrowing is noted within the left INSIDE SALES ACCOUNT REPRESENTATIVE P2 segment proximally. There is an anterior communicating artery. No aneurysm or vascular malformation is identified. IMPRESSION: Minimal intracranial atherosclerotic changes without proximal branch occlusion or high-grade stenosis. [facility]-[id number] Performing Organization Address City/[facility]/Zipcode Phone Number [facility] [address] [place] [address] NICK (07/18/2017 5:48 AM) NICK screen Negative Negative [facility] DEPARTMENT OF PATHOLOGY AND GENOMIC MEDICINE Specimen Blood Performing Organization Address [facility] Phone Number [facility] DEPARTMENT OF PATHOLOGY AND [address] [place] [address] Creatine kinase, total (CPK) (07/18/2017 5:48 AM) Creatine kinase 54 26 - 192 U/L [facility] DEPARTMENT OF PATHOLOGY AND GENOMIC MEDICINE Specimen Plasma specimen Performing Organization Address [facility] Phone Number [facility] DEPARTMENT OF PATHOLOGY AND [address] [place] [address] Homocystine, plasma (07/18/2017 12:10 AM) Homocysteine 36.1 (H) 0.0 - 15.0 umol/L [facility] DEPARTMENT OF Comment: PATHOLOGY AND GENOMIC The risk for coronary vascular disease increases progressively MEDICINE with homocysteine concentration.A 3.4 times greater risk is associated with a homocysteine concentration of greater than 15.8 umol/L as compared to a concentration below 14.1 umol/L. Specimen Plasma specimen Performing Organization Address [facility] Phone Number [facility] DEPARTMENT OF PATHOLOGY AND [address] [place] [address] Thyroid stimulating hormone (07/18/2017 12:10 AM) TSH 0.69 0.27 - 4.20 uIU/mL [facility] DEPARTMENT OF PATHOLOGY AND GENOMIC MEDICINE Specimen Blood Performing Organization Address [facility] Phone Number [facility] DEPARTMENT OF PATHOLOGY AND [address] [place] [address] T4, free (07/18/2017 12:10 AM) T4, free 1.3 0.9 - 1.7 ng/dL [facility] DEPARTMENT OF PATHOLOGY AND GENOMIC MEDICINE Specimen Blood Performing Organization Address [facility] Phone Number [facility] DEPARTMENT OF PATHOLOGY AND [address] [place] [address] Folate level (07/18/2017 12:10 AM) Folate >20.0 4.8 - 24.2 ng/mL [facility] DEPARTMENT OF PATHOLOGY AND GENOMIC MEDICINE Specimen Serum Performing Organization Address City/State/Zipcode Phone Number [facility] DEPARTMENT OF PATHOLOGY AND [address] Vitamin B12 level (07/18/2017 12:10 AM) Vitamin B12 659 211 - 946 pg/mL [facility] DEPARTMENT OF PATHOLOGY Comment: AND GENOMIC MEDICINE Significant overlap exists between normal and deficiency states. However, most patients with deficiencies will have Serum B12 <200 pg/mL. Specimen Serum Performing Organization Address City/[facility]/Zipcode Phone Number [facility] DEPARTMENT OF PATHOLOGY AND [address] [place] [address] IR Endovascular Consult (12/25/2016 2:09 PM) Narrative [...] tunneled central venous catheter, as described above. [facility]-[id number] Procedure Note Interface, Radiology Results Incoming - [...] tunneled central venous catheter, as described above. [facility]-[id number] Performing Organization Address City/[facility]/Zipcode Phone Number [facility] [address] [place] [address] Hepatitis B surface Ab, quantitative (12/24/2016 5:39 AM) Hepatitis B surface Ab 16.24 IU/L [facility] Comment: The anti-HBs is greater than [...] Cellular and Tissue-Based Products (HCT/P). Performed by [employer], [address] [place] [address] [email or web address], Fredrick Gonzalez MD - Lab. 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 [facility]-[id number] Procedure Note Hm Interface, Radiology Results Incoming [...] 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 [facility]-[id number] Performing Organization Address [facility] Phone Number [facility] [address] [place] [address] Vancomycin level, trough (12/23/2016 3:55 AM) Vancomycin, trough 24.9 (HH) 10.0 - 20.0 ug/mL [facility] DEPARTMENT OF Comment: PATHOLOGY AND GENOMIC Therapeutic Ranges: MEDICINE Peak30.0 - 40.0 ug/mL Eaiyrd68.0 - 20.0 ug/mL Final results called to and read back by GERARDO CMCOY 12/23/2016 04:43 AR Specimen Blood Performing Organization Address [facility] Phone Number [facility] DEPARTMENT OF PATHOLOGY [address] [place] [address] AND GENOMIC MEDICINE AFB culture (12/22/2016 6:45 PM) AFB culture isolate No growth after 6 weeks of incubation. [facility] DEPARTMENT OF PATHOLOGY Comment: AND morphCARD MEDICINE Specimen Information Specimen Source: Peritoneal fluid Specimen Site: Abdominal Specimen Peritoneal fluid - Abdominal Performing Organization Address [facility] Phone Number [facility] DEPARTMENT OF PATHOLOGY AND [address] [place] [address] GENOMIC MEDICINE Fungus culture (12/22/2016 6:45 PM) Fungus culture isolate No growth after 4 weeks of incubation. [facility] DEPARTMENT OF Comment: PATHOLOGY AND GENOMIC Specimen Information MEDICINE Specimen Source: Peritoneal fluid Specimen Site: Abdominal Specimen Peritoneal fluid - Abdominal Performing Organization Address [facility] Phone Number [facility] DEPARTMENT OF PATHOLOGY AND [address] [place] [phone] GENOMIC MEDICINE Fungus smear (12/22/2016 5:45 PM) Fungus smear No fungi observed. [facility] DEPARTMENT OF PATHOLOGY Comment: AND GENOMIC MEDICINE Specimen Information Specimen Source: Peritoneal fluid Specimen Site: Abdominal Specimen Peritoneal fluid - Abdominal Performing Organization Address [facility] Phone Number [facility] DEPARTMENT OF PATHOLOGY AND [address] [place] [phone] GENOMIC MEDICINE Aerobic culture (12/22/2016 5:45 PM) Aerobic culture isolate No growth after 3 days. [facility] DEPARTMENT OF Comment: PATHOLOGY AND GENOMIC Specimen Information MEDICINE Specimen Source: Peritoneal fluid Specimen Site: Abdominal Specimen Peritoneal fluid - Abdominal Performing Organization Address [facility] Phone Number [facility] DEPARTMENT OF PATHOLOGY AND [address] [place] [phone] GENOMIC MEDICINE Gram stain (12/22/2016 5:45 PM) Gram stain isolate Occasional WBC's [facility] DEPARTMENT OF PATHOLOGY No organisms seen AND GEN[facility] MEDICINE Comment: Specimen Information Specimen Source: Peritoneal fluid Specimen Site: Abdominal Specimen Peritoneal fluid - Abdominal Performing Organization Address [facility] Phone Number [facility] DEPARTMENT OF PATHOLOGY AND [address] [place] [phone] GENOMIC MEDICINE AFB stain (12/22/2016 5:45 PM) AFB stain No acid fast bacilli (AFB) seen. [facility] DEPARTMENT OF PATHOLOGY AND Comment: GENOMIC MEDICINE Specimen Information Specimen Source: Peritoneal fluid Specimen Site: Abdominal Specimen Peritoneal fluid - Abdominal Performing Organization Address [facility] Phone Number [facility] DEPARTMENT OF PATHOLOGY AND [address] [place] [phone] [facility] MEDICINE Anaerobic culture (12/22/2016 5:45 PM) Anaerobic culture No anaerobic organisms isolated. [facility] DEPARTMENT OF isolate Comment: PATHOLOGY AND GENOMIC Specimen Information MEDICINE Specimen Source: Peritoneal fluid Specimen Site: Abdominal Specimen Peritoneal fluid - Abdominal Performing Organization Address [facility] Phone Number [facility] DEPARTMENT OF PATHOLOGY AND [address] [place] [phone] [place] [address] MEDICINE Echocardiogram complete w contrast and 3D [...] At There is moderate left ventricular hypertrophy. [facility] Left Ventricular ejection fraction is 55 - 60%. No pericardial effusion Spectral Doppler shows impaired relaxation pattern of left ventricular diastolic filling. Stage I diastolic dysfunction with pseudonormal filling dynamics. Performing Organization Address [facility] Phone Number [facility] [address] [place] [address] ECG Pre/Post Op (12/21/2016 1:19 PM) Ventricular rate 71 [facility] Atrial rate 71 [facility] NC interval 138 [facility] QRSD interval 72 [facility] QT interval 430 [facility] QTC interval 467 [facility] P axis 1 59 [facility] QRS axis 1 49 [facility] T wave axis -11 [facility] EKG impression Normal sinus rhythm-Septal infarct , age [facility] MUSE undetermined-T wave abnormality, consider inferior ischemia-Abnormal ECG-No previous ECGs available- Performing Organization Address [facility] Phone Number [facility] MUSE [address] [place] [address] CT Abdomen Pelvis Wo Contrast (12/21/2016 9:43 [...] within the lower thoracic and lumbosacral spine. [id number] Procedure Note Interface, Radiology Results Incoming - [...] within the lower thoracic and lumbosacral spine. [id number] Performing Organization Address City/State/Zipcode Phone Number [facility] [address] [place] [address] after 11/11/2016 Insurance Payer Benefit Plan / Group Subscriber ID Type Phone Address MEDICARE MEDICARE PART A AND B xxxxxxxxxx Medicare [place], [place] MEDICAID MEDICAID xxxxxxxxx Medicaid Home: [address] [place], [place] [phone] [address]
--- OUTSIDE RECORDS SUMMARY | 2017-11-12 10:45 | XMS REPORT | Clinical Summary ---
:1945 Author Organization [facility] Address [address] [place] [address] Phone Care Team Providers Name Role Phone Unavailable Primary Care Provider Unavailable Allergies No Known Allergies Current Medications Prescription Sig. Disp. Refills Start Date End Date Status docusate sodium Take 100 mg by Active (COLACE) 100 MG mouth daily. capsule calcitriol Take 0.5 mcg by Active (ROCALTROL) 0.5 mouth daily. MCG capsule epoetin cindy Inject 1 mL (10,000 1 mL 0 10/07/2017 Active (EPOGEN,PROCRIT) Units total) 10,000 unit/mL subcutaneously 3 injectionIndicati (three) times a ons: Anemia week at bedtime. folic acid Take 1 tablet (1 mg 90 tablet 0 10/07/2017 10/08/19 Active (FOLVITE) 1 MG total) by mouth 19 tablet daily. insulin lispro Inject 0-4 Units 10 mL 0 10/06/2017 10/07/19 Active (HUMALOG) 100 subcutaneously 19 unit/mL injection every night as needed (High blood sugar). insulin lispro Inject 0-8 Units 10 mL 0 10/06/2017 10/07/19 Active (HUMALOG) 100 subcutaneously as 19 unit/mL injection needed (High blood sugar). melatonin 3 mg Take 1 tablet (3 mg 0 10/06/2017 Active Tab tablet total) by mouth nightly. pantoprazole Take 1 tablet (40 60 tablet 0 10/06/2017 11/23/19 Active (PROTONIX) 40 MG mg total) by mouth 18 tablet 2 (two) times daily for 47 days. sevelamer Take 2 tablets 90 tablet 0 10/07/2017 10/08/19 Active (RENVELA) 800 mg (1,600 mg total) by 19 tablet mouth 3 (three) times daily with meals. sulfamethoxazole- Take 1 tablet (160 0 10/06/2017 04/04/19 Active trimethoprim mg of trimethoprim 19 (BACTRIM DS) total) by mouth 2 800-160 mg per (two) times daily tablet for 180 days. sevelamer Take 800 mg by 09/09/19 Discontinued (RENVELA) 800 mg mouth 3 (three) 18 tablet times daily with meals. insulin detemir Inject 30 Units 10/07/19 Discontinued U-100 (LEVEMIR) subcutaneously 18 100 unit/mL nightly. injection insulin detemir Inject 30 Units 10/07/19 Discontinued U-100 (LEVEMIR) subcutaneously 18 100 unit/mL every morning. injection aspirin 81 MG EC Take 81 mg by mouth 10/07/19 Discontinued tablet daily. 18 cephalexin Take 500 mg by 10/07/19 Discontinued (KEFLEX) 500 MG mouth 2 (two) times 18 capsule daily. amLODIPine Take 5 mg by mouth 10/07/19 Discontinued (NORVASC) 5 MG daily. 18 tablet furosemide Take 20 mg by mouth 10/07/19 Discontinued (LASIX) 40 MG 2 (two) times 18 tablet daily. carvedilol Take 3.125 mg by 10/07/19 Discontinued (COREG) 3.125 MG mouth 2 (two) times 18 tablet daily with breakfast and dinner. rOPINIRole Take 0.5 mg by 10/07/19 Discontinued (REQUIP) 0.5 MG mouth nightly. 18 tablet aluminum & Take 30 mLs by 355 mL 0 10/06/2017 10/17/19 magnesium mouth every 6 (six) 18 hydroxide-simethi hours as needed for cone (MAALOX up to 10 days. PLUS) 400-400-40 mg/5 mL suspension haloperidol Take 1 tablet (0.5 90 tablet 0 10/06/2017 11/06/19 (HALDOL) 0.5 MG mg total) by mouth 18 tablet every 8 (eight) hours as needed for up to 30 days. mupirocin Apply topically 22 g 0 10/06/2017 10/14/19 (BACTROBAN) 2 % daily for 7 days. 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 (HCC) Cellulitis of right anterior lower leg 09/08/2017 Skin lesion of right leg 09/08/2017 Encounters Date Type Specialty Care Team Description 09/21/2017 Anesthesia Event Gastroenterology Bill Godinez MD 09/21/2017 Procedure Pass Gastroenterology 09/21/2017 Surgery Gastroenterology Mamie, UPPER ENDOSCOPY,BIOPSY MD Bong 09/10/2017 Orders Only General Internal Medicine 09/07/2017 Hospital General Internal Changela, Cellulitis of right - Encounter Medicine Jordana Villagomez, anterior lower leg 10/07/2017 (Primary Dx);ESRD on Jarrouge, peritoneal dialysis Dilan Coleman MD (HCC);Skin lesion of Elayne, right leg;Type 2 diabetes MD Yady mellitus with chronic Cece, kidney disease on chronic MD Miguelito dialysis, with long-term current use of insulin (HCC);Hyperphosphatemia;S econdary hyperparathyroidism (HCC);Peritonitis associated with peritoneal dialysis, subsequent encounter (HCC);Peritonitis associated with peritoneal dialysis, sequela (HCC);Nocardia infection after 11/11/2016 Social History Tobacco Use Types Packs/Day Years Used Date Never Smoker Smokeless Tobacco: Never Used Sex Assigned at Date Recorded Not on file Last Filed Vital Signs Vital Sign Reading Time Taken Blood Pressure 135/60 10/07/2017 7:29 AM CDT Pulse 84 10/07/2017 7:29 AM CDT Temperature 36.4 C (97.5 F) 10/07/2017 7:29 AM CDT Respiratory Rate 18 10/07/2017 7:29 AM CDT Oxygen Saturation 95% 10/07/2017 7:29 AM CDT Inhaled Oxygen Concentration - - Weight 72 kg (158 lb 11.7 oz) 10/05/2017 7:06 PM CDT Height 149.9 cm (4' 11") 09/07/2017 11:00 PM CDT Body Mass Index 32.06 10/05/2017 7:06 PM CDT Plan of Treatment Not on file Procedures Procedure Name Priority Date/Time Associated Diagnosis Comments UPPER 09/21/2017 12:00 PM Gastrointestinal ENDOSCOPY,BIOPSY CDT hemorrhage, unspecified gastrointestinal hemorrhage type Special Needs EGD W/ ANES after 11/11/2016 Results RHYTHM STRIP - SCAN (10/08/2017 12:30 PM)Only the most recent of2 resultswithin the time period is included.POC-Glucose meter (10/07/2017 7:33 AM)Only the most recent of122 resultswithin the time period is included. Component Value Ref Range POC-Glucose Meter 141 (H)Comment: TESTED AT [address] 70 - 110 mg/[place] [address] Specimen Performing Laboratory Blood [address] [address] CBC with platelet count + automated diff (10/07/2017 6:22 AM)Only the most recent of32 resultswithin the time period is included. Component Value Ref Range WBC 8.6 3.5 - 10.5 K/L RBC 2.68 (L) 3.93 - 5.22 M/L Hemoglobin 7.8 (L) 11.2 - 15.7 GM/DL Hematocrit 25.7 (L) 34.1 - 44.9 % MCV 95.9 (H) 79.4 - 94.8 fL MCH 29.1 25.6 - 32.2 pg MCHC 30.4 (L) 32.2 - 35.5 GM/DL RDW 14.4 11.7 - 14.4 % Platelets 294 150 - 450 K/CU MM MPV 9.8 9.4 - 12.3 fL nRBC 2 (H) 0 - 0 /100 WBC % Neutros 63 % % Lymphs 21 % % Monos 11 % % Eos 4 % % Baso 1 % # Neutros 5.39 1.56 - 6.13 K/L # Lymphs 1.78 1.18 - 3.74 K/L # Monos 0.92 (H) 0.24 - 0.36 K/L # Eos 0.32 0.04 - 0.36 K/L # Baso 0.06 0.01 - 0.08 K/L Immature Granulocytes-Relative 1 0 - 1 % Specimen Performing Laboratory Blood [address] [address] CBC with platelet count + automated diff (10/07/2017 6:22 AM)Only the most recent of32 resultswithin the time period is included. Specimen Performing Laboratory Blood Narrative The following orders were created for panel order CBC with platelet count + automated diff. Procedure Abnormality Status --------- ------ CBC with platelet count ...[[id number]]AbnormalFinal result Please view results for these tests on the individual orders. Phosphorus (10/07/2017 6:22 AM)Only the most recent of30 resultswithin the time period is included. Component Value Ref Range Phosphorus 3.5 2.3 - 4.7 mg/dL Specimen Performing Laboratory Blood [address] [address] Magnesium (10/07/2017 6:22 AM)Only the most recent of30 resultswithin the time period is included. Component Value Ref Range Magnesium 2.0 1.6 - 2.6 mg/dL Specimen Performing Laboratory Blood [address] [address] Basic metabolic panel (10/07/2017 6:22 AM)Only the most recent of31 resultswithin the time period is included. Component Value Ref Range Sodium 133 (L) 136 - 145 meq/L Potassium 3.2 (L) 3.5 - 5.1 meq/L Chloride 95 (L) 98 - 107 meq/L CO2 29 22 - 29 meq/L BUN 38 (H) 7 - 21 mg/dL Creatinine 6.46 (H) 0.57 - 1.25 mg/dL Glucose 125 (H) 70 - 105 mg/dL Calcium 9.4 8.4 - 10.2 mg/dL EGFR 6Comment: ESTIMATED GFR IS NOT ACCURATE CREATININE mL/min/1.73 sq m CLEARANCE IN PREDICTING GLOMERULAR FILTRATION RATE. ESTIMATED GFR IS NOT APPLICABLE FOR DIALYSIS PATIENTS. Specimen Performing Laboratory Blood [address] [address] EEG AWAKE AND DROWSY (10/05/2017 1:50 PM)Only the most recent of2 resultswithin the time period is included. Specimen Performing Laboratory GE RIS Narrative Date(s) of EE10/05/2017 DATE OF REPORT: 10/05/2017 ACC: [id number] EEG Number: [id number] Start time: 15:28 Stop time: 15:50 ICD-10: R41.82 CPT Code:30030 HISTORY:72 y/o with PMHx of ESRD on PD, HTN, IDDM admitted with cellulitis now with AMS and visual hallucinations.r/o seizure. MEDICATIONS THAT COULD AFFECT EEG:None TECHNICAL SUMMARY: This is a digital video-EEG recorded with 32 input channels reviewed with bipolar and referential montages using the modified combinatorial system nomenclature. DESCRIPTION OF RECORD: There is excessive motion and myogenic artifact. Within this limitation, during the maximally alert state, a 9-10 Hz posterior dominant rhythm was seen that was symmetric, reactive to eye opening and well regulated. The background was symmetric and organized with an anterior posterior voltage/frequency gradient. There is occasional polymorphic delta activity maximal over central regions bilaterally, at times sharply contoured. Drowsiness was characterized by alpha attenuation and increased frontocentral theta. SIGNIFICANT VIDEO EVENTS: None SIGNIFICANT ELECTROCARDIOGRAM EVENTS: None HV: Hyperventilation was not performed. PHOTIC STIMULATION:Photic stimulation was done from 1-33 Hz; no abnormalities with photic driving were seen; photoparoxysmal responses were absent. IMPRESSION: This study is ABNORMAL, performed in awake, drowsy states, due to polymorphic delta activity maximal over central regions bilaterally, at times sharply contoured. CLINICAL CORRELATION: This study could represent possible focal cortical irritability over the central region bilaterally; however, the significance is unclear. Clinical correlation is recommended. Bozena Lawrence MD Department of Neurology [facility] Procedure Note Interface, External Ris In - 10/05/2017 3:43 PM CDT Date(s) of EE10/05/2017 DATE OF REPORT: 10/05/2017 ACC: [id number] EEG Number: [id number] Start time: 15:28 Stop time: 15:50 ICD-10: R41.82 CPT Code: 57668 HISTORY: 72 y/o with PMHx of ESRD on PD, HTN, IDDM admitted with cellulitis now with AMS and visual hallucinations. r/o seizure. MEDICATIONS THAT COULD AFFECT EEG: None TECHNICAL SUMMARY: This is a digital video-EEG recorded with 32 input channels reviewed with bipolar and referential montages using the modified combinatorial system nomenclature. DESCRIPTION OF RECORD: There is excessive motion and myogenic artifact. Within this limitation, during the maximally alert state, a 9-10 Hz posterior dominant rhythm was seen that was symmetric, reactive to eye opening and well regulated. The background was symmetric and organized with an anterior posterior voltage/frequency gradient. There is occasional polymorphic delta activity maximal over central regions bilaterally, at times sharply contoured. Drowsiness was characterized by alpha attenuation and increased frontocentral theta. SIGNIFICANT VIDEO EVENTS: None SIGNIFICANT ELECTROCARDIOGRAM EVENTS: None HV: Hyperventilation was not performed. PHOTIC STIMULATION: Photic stimulation was done from 1-33 Hz; no abnormalities with photic driving were seen; photoparoxysmal responses were absent. IMPRESSION: This study is ABNORMAL, performed in awake, drowsy states, due to polymorphic delta activity maximal over central regions bilaterally, at times sharply contoured. CLINICAL CORRELATION: This study could represent possible focal cortical irritability over the central region bilaterally; however, the significance is unclear. Clinical correlation is recommended. Bozena Lawrence MD Department of Neurology [facility] Lactic acid, venous, whole blood (10/02/2017 6:10 AM)Only the most recent of8 resultswithin the time period is included. Component Value Ref Range Lactate, Venous 2.6 (H)Comment: Specimen slightly hemolyzed 0.5 - 2.2 mmol/L Specimen Performing Laboratory Blood [address] [address] Narrative Effective 07/04/2015: Units/Reference Range Change New: 0.5-2.2 mmol/LPrevious: 5-20 mg/dL POCT-HEMATOCRIT (10/02/2017 5:20 AM)Only the most recent of2 resultswithin the time period is included. Component Value Ref Range POC-Hematocrit 27 (L)Comment: TESTED AT [place] [address] 36 - 45 % Specimen Performing Laboratory Blood [address] [address] POCT-HEMOGLOBIN (10/02/2017 5:20 AM)Only the most recent of2 resultswithin the time period is included. Component Value Ref Range POC-Hemoglobin 9.2 (L)Comment: TESTED AT [address] 12.0 - 15.0 g/dL [place] [id number] AT [address] [address] Specimen Performing Laboratory Blood [address] [address] POCT-GLUCOSE (10/02/2017 5:20 AM)Only the most recent of2 resultswithin the time period is included. Component Value Ref Range POC-Glucose 254 (H)Comment: TESTED AT [address] 70 - 110 mg/dL [facility] Specimen Performing Laboratory Blood [address] [address] POC-Sodium (10/02/2017 5:20 AM)Only the most recent of2 resultswithin the time period is included. Component Value Ref Range POC-Sodium 137Comment: TESTED AT [place] [address] 135 - 148 meq/L Specimen Performing Laboratory Blood [address] [address] POC-Potassium (10/02/2017 5:20 AM)Only the most recent of2 resultswithin the time period is included. Component Value Ref Range POC-Potassium 2.8 (L)Comment: TESTED AT [address] 3.6 - 5.5 meq/L [facility] Specimen Performing Laboratory Blood [address] [address] POC-Calcium ionized (10/02/2017 5:20 AM)Only the most recent of2 resultswithin the time period is included. Component Value Ref Range POC-Calcium Ionized 1.19Comment: TESTED AT [address] 1.12 - 1.27 mmol/L [place] [address] Specimen Performing Laboratory Blood [address] [address] POC-Blood gases, arterial (10/02/2017 5:20 AM)Only the most recent of2 resultswithin the time period is included. Component Value Ref Range Temp. Celsius-POC 36.1 FIO2-POC 21Comment: TESTED AT [place] [id number] pH, Arterial-POC 7.480 (H) 7.350 - 7.450 PCO2, Arterial-POC 36.6 35.0 - 45.0 mm Hg PO2, Arterial-POC 56.0 (L) 80.0 - 90.0 mm Hg SO2, Arterial-POC 92.0 (L) 96.0 - 97.0 % HCO3, Arterilal-POC 27.5 21.0 - 29.0 meq/L BE, Arterial-POC 4.0 (H) -2.0 - 3.0 meq/L Specimen Performing Laboratory Blood [address] [address] Procalcitonin (10/02/2017 5:19 AM) Component Value Ref Range Procalcitonin 0.67 (H) <0.05 ng/mL Specimen Performing Laboratory Blood [address] [address] Narrative SEPSIS RISK (ng/mL) Low:0.05-0.50 Intermediate: 0.51-2.00 High: >=2.01 Blood culture (10/02/2017 5:18 AM)Only the most recent of8 resultswithin the time period is included. Component Value Ref Range Result No growth in 5 days Specimen Performing Laboratory Blood - Arm, Right [address] [address] XR chest 1 view portable / bedside (10/02/2017 5:10 AM)Only the most recent of2 resultswithin the time period is included. Specimen Performing Laboratory GE RIS Narrative FINAL REPORT RAD, CHEST, 1 VIEW, NON DEPT INDICATION: Hypotension COMPARISON: Chest x-ray 6 days ago TECHNIQUE: Single frontal view of the chest. IMPRESSION: Cardiomediastinal silhouette within normal limits allowing for patient rotation to the left. No overt consolidative or congestive change. No acute osseous abnormality. Signed: jAith Jackson MD Report Verified Date/Time:10/02/2017 05:16:31 Reading Location: [address] Transitional Reading Room Procedure Note Interface, External Ris In - 10/02/2017 5:40 AM CDT FINAL REPORT RAD, CHEST, 1 VIEW, NON DEPT INDICATION: Hypotension COMPARISON: Chest x-ray 6 days ago TECHNIQUE: Single frontal view of the chest. IMPRESSION: Cardiomediastinal silhouette within normal limits allowing for patient rotation to the left. No overt consolidative or congestive change. No acute osseous abnormality. Signed: Ajith Jackson MD Report Verified Date/Time: 10/02/2017 05:16:31 Reading Location: [facility] C013 Transitional Reading Room -Lactic Acid, Venous (10/02/2017 4:47 AM) Component Value Ref Range POC-Lactic Acid, Venous 3.0 (H)Comment: TESTED AT [address] 0.9 - 1.7 mmol/L [facility] [address] Specimen Performing Laboratory Blood [facility] [address] [address] MR brain without IV contrast (10/01/2017 4:24 PM) Specimen Performing Laboratory GE RIS Narrative FINAL REPORT MRI brain Comparison: Head CT September 18, 2017 Reason for exam: nocardia infection, now w/visual hallucination and ams Discussion: Multiplanar MR imaging the brain was performed using T1, T2, FLAIR, FFE, diffusion, and ADC map imaging. There are no intracranial hematomas, mass effect, hydrocephalus, shift, or extra-axial collections. Chronic microvascular changes are present in both cerebral hemispheres and to a greater extent in the brainstem with areas a near midline pontine cavitation. There is a single punctate hemosiderin stain in the right suprasylvian post central gyrus. There are no areas of abnormal diffusion restriction. Flow-voids are seen in the basilar and internal carotid arteries as well as in the large posterior dural sinuses. The pineal, sella, and craniocervical junction regions are unremarkable. The visualized orbital contents, paranasal sinuses, skullbase and surrounding soft tissues are unremarkable.. Impressions: Chronic findings as discussed. No specific evidence of acute intracranial abnormality. Signed: Kaylyn Watts MD Report Verified Date/Time:10/01/2017 18:04:34 Procedure Note Interface, External Ris In - 10/01/2017 6:06 PM CDT FINAL REPORT MRI brain Comparison: Head CT September 18, 2017 Reason for exam: nocardia infection, now w/visual hallucination and ams Discussion: Multiplanar MR imaging the brain was performed using T1, T2, FLAIR, FFE, diffusion, and ADC map imaging. There are no intracranial hematomas, mass effect, hydrocephalus, shift, or extra-axial collections. Chronic microvascular changes are present in both cerebral hemispheres and to a greater extent in the brainstem with areas a near midline pontine cavitation. There is a single punctate hemosiderin stain in the right suprasylvian post central gyrus. There are no areas of abnormal diffusion restriction. Flow-voids are seen in the basilar and internal carotid arteries as well as in the large posterior dural sinuses. The pineal, sella, and craniocervical junction regions are unremarkable. The visualized orbital contents, paranasal sinuses, skullbase and surrounding soft tissues are unremarkable. . Impressions: Chronic findings as discussed. No specific evidence of acute intracranial abnormality. Signed: Kaylyn Watts MD Report Verified Date/Time: 10/01/2017 18:04:34 abdomen limited (09/29/2017 1:14 PM) Specimen Performing Laboratory RIS Narrative FINAL REPORT Limited abdominal ultrasound Clinical History: Delirium Technique: Limited abdominal ultrasound is performed in all four quadrants to assess for presence of ascites in anticipation of paracentesis. No significant ascites identified. Impression: No significant ascites. Paracentesis was not performed. Signed: Niko Osullivan MD Report Verified Date/Time:09/29/2017 13:53:14 Reading Location: [address] Ultrasound Reading Room Procedure Note Interface, External Ris In - 09/29/2017 1:55 PM CDT FINAL REPORT Limited abdominal ultrasound Clinical History: Delirium Technique: Limited abdominal ultrasound is performed in all four quadrants to assess for presence of ascites in anticipation of paracentesis. No significant ascites identified. Impression: No significant ascites. Paracentesis was not performed. Signed: Niko Osullivan MD Report Verified Date/Time: 09/29/2017 13:53:14 Reading Location: [address] Ultrasound Reading Room 12 lead (09/29/2017 8:18 AM)Only the most recent of12 resultswithin the time period is included. Specimen Performing Laboratory GE MUSE Narrative Ventricular Rate 122 BPM Atrial Rate 122 BPM P-R Interval 142 ms QRS Duration 88 ms Q-T Interval 334 ms QTC Calculation(Bazett) 475 ms P Randall 72 degrees R Randall 0 degrees T Randall [address] & T wave abnormality, consider lateral ischemia Abnormal ECG When compared with ECG of 28-SEP-2017 11:36, No significant change was found Confirmed by MD Taylor Roberto ([id number]) on 09/29/2017 2:56:17 PM Procedure Note Interface, External Ris In - 09/29/2017 2:56 PM CDT Ventricular Rate 122 BPM Atrial Rate 122 BPM P-R Interval 142 ms QRS Duration 88 ms Q-T Interval 334 ms QTC Calculation(Bazett) 475 ms P Randall 72 degrees R Randall 0 degrees T Randall [address] & T wave abnormality, consider lateral ischemia Abnormal ECG When compared with ECG of 28-SEP-2017 11:36, No significant change was found Confirmed by MD Taylor Roberto ([id number]) on 09/29/2017 2:56:17 PM PT/aPTT (09/28/2017 2:43 PM)Only the most recent of2 resultswithin the time period is included. Component Value Ref Range Protime 15.3 (H) 11.7 - 14.7 seconds INR 1.2 <=5.9 PTT 26.7 22.5 - 36.0 seconds Specimen Performing Laboratory Blood - Arm, [address] [address] Narrative RECOMMENDED COUMADIN/WARFARIN INR THERAPY RANGES STANDARD DOSE: 2.0 - 3.0 Includes: PROPHYLAXIS for venous thrombosis, systemic embolization; TREATMENT for venous thrombosis and/or pulmonary embolus. HIGH RISK: Target INR is 2.5-3.5 for patients with mechanical heart valves. Vancomycin level, random (09/28/2017 5:42 AM)Only the most recent of9 resultswithin the time period is included. Component Value Ref Range Vancomycin Rm 23.7 ug/mL Specimen Performing Laboratory Blood - Arm, Right [facility] [address] Narrative Reference Range: No Normals Peritoneal Dialysis Effluent Culture (09/26/2017 8:32 PM)Only the most recent of2 resultswithin the time period is included. Component Value Ref Range Result No growth Specimen Performing Laboratory Body Fluid - Peritoneal Dialysis Fluid [address] [address] Gram stain (09/26/2017 8:32 PM) Component Value Ref Range Gram Stain Result <1+ WBCs Gram Stain Result No organisms seen Specimen Performing Laboratory Body Fluid - Peritoneal Dialysis Fluid [address] [address] Body fluid cell count with differential (09/26/2017 8:32 PM)Only the most recent of3 resultswithin the time period is included. Component Value Ref Range Appearance Clear Clear Color Colorless Colorless, Straw RBCs 1 <=1 /cu mm Adjusted WBC Count 5 <=5 /cu mm Lining Cells 0 <=1 /cu mm % Segs 10 % % Lymphs 40 % % Monos 50 % % Eos 0 % % Baso 0 % Container Body Fluid EDTA Tube Specimen Performing Laboratory Body Fluid - Peritoneal Dialysis Fluid [address] [address] Prealbumin (09/26/2017 10:54 AM) Component Value Ref Range Prealbumin 33 14 - 45 mg/dL Specimen Performing Laboratory Blood - Arm, Left [address] [address] Troponin I (09/25/2017 10:42 PM)Only the most recent of2 resultswithin the time period is included. Component Value Ref Range Troponin I 0.10 (H) 0.00 - 0.03 ng/mL Specimen Performing Laboratory Blood [address] [address] Narrative Troponin I (TnI) levels must be interpreted in the context of the presenting symptoms and the clinical findings. Elevated TnI levels indicate myocardial damage, but are not specific for ischemic heart disease. Elevated TnI levels are seen in patients with other cardiac conditions (including myocarditis and congestive heart failure), and slight TnI elevations occur in patients with other conditions, including sepsis, renal failure, acidosis, acute neurological disease, and persistent tachyarrhythmia. Comprehensive metabolic panel (09/25/2017 10:42 PM) Component Value Ref Range Protein, Total 6.2 6.0 - 8.3 gm/dL Albumin 2.6 (L) 3.5 - 5.0 g/dL Alkaline Phosphatase 105 40 - 150 U/L Total Bilirubin 0.5 0.2 - 1.2 mg/dL Sodium 133 (L) 136 - 145 meq/L Potassium 3.6 3.5 - 5.1 meq/L Chloride 95 (L) 98 - 107 meq/L CO2 23 22 - 29 meq/L BUN 46 (H) 7 - 21 mg/dL Creatinine 7.11 (H) 0.57 - 1.25 mg/dL Glucose 150 (H) 70 - 105 mg/dL Calcium 8.6 8.4 - 10.2 mg/dL AST 6 5 - 34 U/L ALT <6 (L) 6 - 55 U/L EGFR 6Comment: ESTIMATED GFR IS NOT ACCURATE mL/min/1.73 sq m CREATININE CLEARANCE IN PREDICTING GLOMERULAR FILTRATION RATE. ESTIMATED GFR IS NOT APPLICABLE FOR DIALYSIS PATIENTS. Specimen Performing Laboratory Blood [address] [address] HIV-1 Antigen with HIV-1/2 Antibody (09/25/2017 3:38 PM) Component Value Ref Range HIV-1 Antigen with HIV 1&2 Antibody Nonreactive Nonreactive Specimen Performing Laboratory Blood - Arm, [address] [address] Narrative Can draw at the time of the next set of labs Blood gas, venous (09/23/2017 7:24 AM) Component Value Ref Range pH, Yousif 7.43 (H) 7.32 - 7.42 pCO2, Yousif 39 (L) 41 - 51 mmHg pO2, Yousif 119 (H) 25 - 40 mmHg O2 Sat, Yousif 98.4 (H) 40.0 - 70.0 % HCO3, Yousif 26 21 - 29 mmol/L Base Excess, Yousif 1.4 -2.0 - 3.0 mmol/L Patient Temperature 37.1 C FIO2 21.0 % Specimen Performing Laboratory Blood - Arm, [address] [address] RPR (09/23/2017 4:49 AM) Component Value Ref Range RPR Nonreactive Nonreactive Specimen Performing Laboratory Blood [address] [address] Vitamin B12 and Folate (09/23/2017 4:48 AM)Only the most recent of2 resultswithin the time period is included. Component Value Ref Range Vitamin B12 560 213 - 816 pg/mL Folate 6.5 (L) >=7.0 ng/mL Specimen Performing Laboratory Blood - Arm, Left [address] [address] TSH/Free T4 If Indicated (09/23/2017 4:48 AM) Component Value Ref Range TSH 0.42 0.35 - 4.94 uIU/mL Specimen Performing Laboratory Blood - Arm, Left [address] [address] JOSHUA's Only(Ankle/Brachial Index) (09/22/2017 4:07 PM) Component Value Ref Range Ejection Fraction Specimen Performing Laboratory SLE ECHO [facility] MKCKESSON CPACS Impressions Right Impression 1. The posterior tibial and dorsalis pedis arteries are patent with monophasic Doppler waveforms. 2. The PT pressure is 160 mmHg with an JOSHUA of 1.24, in the normal range and the DP pressure is >255 mmHg with an JOSHUA of non compressible. 3. The TBI is not obtained due to absence of toe flow in first digit. 4. The first and second digits have no flow by PPG waveforms. 5. The fifth digit has adequate flow by PPG waveforms. 6. The third and fourth digits have been amputated. Left Impression 1. The posterior tibial and dorsalis pedis arteries are patent with normal triphasic Doppler waveforms. 2. The PT pressure is 82 mmHg with an JOSHUA of 0.64, in the moderate obstruction range and the DP pressure is >255 mmHg with an JOSHUA of non compressible. 3. The great toe pressure is 86 mmHg with a normal TBI of 0.67. 4. The digits have decreased flow by PPG waveforms. Conclusions Summary Arterial pressures and Doppler waveforms were performed bilaterally. Adequate Doppler waveforms were obtained. Doppler waveforms were monophasic bilaterally. The right JOSHUA's were in the normal(PT) and non compressible(DP) range. The left JOSHUA's were in the moderate obstruction range(PT) and non compressible(DP) range. The left toe pressure and TBI was within normal range. The right TBI was not obtained. The right first and second digits had no flow by PPG waveforms. The right fifth digit had adequate flow by PPG waveforms. The right third and fourth digits were amputated.The left digits had decreased flow by PPG waveforms. Signature Velocities are measured in cm/s ; Diameters are measured in cm Narrative PV LAB - Lower Extremity Arterial Procedure Demographics Patient Name Camilo WHITE of Study 09/22/2017 CAT [id number] Age 72 Visit Number [id number] Gender Female Accession Number [id number] Date of 1945 [facility] Number [id number] [facility], [place] SonographerAlleghany Healthkathy StrattonJCristian Epstein MD, RVTPhysician RPVI Procedure Type of Study: Extremities Arteries: Lower Extremity Arterial Procedure, ARTERIAL (JOSHUA'S W/DOPPLER) ONLY. Indications for Study:Poor perfusion and Poorly healing wounds . Patient Status:Routine. Study Location:Vascular Lab. Technical Quality:Adequate visualization. Risk Factors History of Disease + +----+ + !Diagnosis !Date!Comments ! + +----+ + !History/Risk!!ESRD, DM, AMPUTATION OF RIGHT 3 AND 4 DIGITS, ! !Factors:!!HTN ! + +----+ + Procedure Note Interface, External Ris In - 09/22/2017 7:45 PM CDT PV LAB - Lower Extremity Arterial Procedure Demographics Patient Name JESSE WHITE Date of Study 09/22/2017 CAT Age 72 Visit Number [id number] Gender Female Accession Number [id number] Date of 1945 Referring [facility] [place] Room Number 934 Physician Angela Field Marketing Associate Betty Mackay Interpreting Radhika Epstein MD, RVT Physician RPVI Procedure Type of Study: Extremities Arteries: Lower Extremity Arterial Procedure, ARTERIAL (JOSHUA'S W/DOPPLER) ONLY. Indications for Study:Poor perfusion and Poorly healing wounds . Patient Status:Routine. Study Location:Vascular Lab. Technical Quality:Adequate visualization. Risk Factors History of Disease + +----+ + !Diagnosis !Date!Comments ! + +----+ + !History/Risk ! !ESRD, DM, AMPUTATION OF RIGHT 3 AND 4 DIGITS, ! !Factors: ! !HTN ! + +----+ + Impressions Right Impression 1. The posterior tibial and dorsalis pedis arteries are patent with monophasic Doppler waveforms. 2. The PT pressure is 160 mmHg with an JOSHUA of 1.24, in the normal range and the DP pressure is >255 mmHg with an JOSHUA of non compressible. 3. The TBI is not obtained due to absence of toe flow in first digit. 4. The first and second digits have no flow by PPG waveforms. 5. The fifth digit has adequate flow by PPG waveforms. 6. The third and fourth digits have been amputated. Left Impression 1. The posterior tibial and dorsalis pedis arteries are patent with normal triphasic Doppler waveforms. 2. The PT pressure is 82 mmHg with an JOSHUA of 0.64, in the moderate obstruction range and the DP pressure is >255 mmHg with an JOSHUA of non compressible. 3. The great toe pressure is 86 mmHg with a normal TBI of 0.67. 4. The digits have decreased flow by PPG waveforms. Conclusions Summary Arterial pressures and Doppler waveforms were performed bilaterally. Adequate Doppler waveforms were obtained. Doppler waveforms were monophasic bilaterally. The right JOSHUA's were in the normal(PT) and non compressible(DP) range. The left JOSHUA's were in the moderate obstruction range(PT) and non compressible(DP) range. The left toe pressure and TBI was within normal range. The right TBI was not obtained. The right first and second digits had no flow by PPG waveforms. The right fifth digit had adequate flow by PPG waveforms. The right third and fourth digits were amputated.The left digits had decreased flow by PPG waveforms. Signature Velocities are measured in cm/s ; Diameters are measured in cm REPORT OF PROCEDURE - ENDOSCOPY URL (09/21/2017 2:19 PM)Tissue Exam (2017 2:00 PM)Only the most recent of2 resultswithin the time period is included. Component Value Ref Range Case Report Surgical Pathology Report Case: [id number] Authorizing Provider:Bong Hatch MDCollected: 09/21/2017 1400 Ordering Location: [address] Received: 09/22/2017 4760 Service Pathologist: Howard Reese MD Specimen:Biopsy, Gastric, antrum and body DIAGNOSIS A. STOMACH, ANTRUM AND BODY, BIOPSIES: -FOCALLY ACTIVE CHRONIC GASTRITIS ANDREACTIVE CHANGES -NEGATIVE FOR HELICOBACTER PYLORI ORGANISMS BY WARTHIN STARRY STAIN -NEGATIVE FOR INTESTINAL METAPLASIA, DYSPLASIA, MALIGNANCY Signing Pathologist Direct Phone Line: [phone] CPT Code(s) 00677 00138 CLINICAL HISTORY GI bleed SPECIMEN SOURCE Gastric antrum and body biopsy GROSS DESCRIPTION Received in formalin labeled "biopsy, gastric", description "antrum and body" are four fragments measuring 1.2 x 0.6 x 0.1 cm in aggregate. The specimen is entirely submitted in A1. DB/ew MICROSCOPIC DESCRIPTION Performed. Specimen Performing Laboratory Tissue - Biopsy, Gastric [facility] [address] [address] [address] brain without & with IV contrast (09/18/2017 3:10 PM) Specimen Performing Laboratory GE [facility] Narrative FINAL REPORT CT Head with and without contrast CLINICAL HISTORY: Nocardia infection TECHNIQUE: Contiguous axial images through the head with and without contrast. This exam was performed according to the departmental dose optimization program which includes automated exposure control, adjustment of the mA and/or kV according to the patient size, and/or use of an iterative reconstruction technique. COMPARISON: None FINDINGS: There is no CT evidence of abnormal intracranial enhancement. There is no CT evidence of acute infarct or intracranial hemorrhage. There is periventricular and subcortical white matter hypodensity which is nonspecific but compatible with chronic microvascular ischemic change. There are atherosclerotic calcifications of the intracranial circulation. There is generalized parenchymal volume loss without hydrocephalus, midline shift, or apparent mass effect. There are no extra-axial fluid collections. The skull is intact. The visualized paranasal sinuses are well-aerated. IMPRESSION: No CT evidence of abnormal intracranial enhancement, infarct, hemorrhage, or hydrocephalus Signed: Rosi Valles MD Report Verified Date/Time:09/18/2017 15:53:58 Reading Location: [facility] Radiology Reading Room Procedure Note Interface, External Ris In - 09/18/2017 3:56 PM CDT FINAL REPORT CT Head with and without contrast CLINICAL HISTORY: Nocardia infection TECHNIQUE: Contiguous axial images through the head with and without contrast. This exam was performed according to the departmental dose optimization program which includes automated exposure control, adjustment of the mA and/or kV according to the patient size, and/or use of an iterative reconstruction technique. COMPARISON: None FINDINGS: There is no CT evidence of abnormal intracranial enhancement. There is no CT evidence of acute infarct or intracranial hemorrhage. There is periventricular and subcortical white matter hypodensity which is nonspecific but compatible with chronic microvascular ischemic change. There are atherosclerotic calcifications of the intracranial circulation. There is generalized parenchymal volume loss without hydrocephalus, midline shift, or apparent mass effect. There are no extra-axial fluid collections. The skull is intact. The visualized paranasal sinuses are well-aerated. IMPRESSION: No CT evidence of abnormal intracranial enhancement, infarct, hemorrhage, or hydrocephalus Signed: Rosi Valles MD Report Verified Date/Time: 09/18/2017 15:53:58 Reading Location: [facility] Radiology Reading Room abdomen/pelvis with IV contrast (09/18/2017 3:10 PM) Specimen Performing Laboratory [facility] Narrative FINAL REPORT CT of the chest, abdomen and pelvis, with contrast Clinical History:nocardia infection, 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This exam was performed according to our departmental dose optimization program which includes automated exposure control, adjustment of the mA and/or kV according to patient's size and/or use of iterative reconstructive technique. Comparison Film:None Discussion: Visualized thyroid gland is unremarkable. There is no supraclavicular, axillary, mediastinal or hilar lymphadenopathy. Heart and pericardium are unremarkable. There is no mass or consolidation, no pleural effusion. Central airways are patent, no bronchiectasis, or bronchial wall thickening. 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 There is a 2.4 cm lesion in liver with dense peripheral calcification. No biliary ductal dilatation, gallbladder may contain sludge. The spleen, pancreas, adrenal glands are unremarkable. Kidneys demonstrate no hydronephrosis or radiopaque stone. There is a 2.2 cm cyst in the left kidney. Both kidneys are mildly atrophic. No evidence of bowel obstruction, or abnormal bowel wall thickening. Normal appendix. In the pelvis, bladder is unremarkable. Uterus contains small calcified fibroids. No adnexal mass. There are enlarged right inguinal lymph nodes, which appears heterogeneous and may contain areas of necrosis, measuring up to 2 cm. Osseous structures demonstrate degenerative changes. A peritoneal dialysis catheter is present. Impression: No acute process identified in the chest, abdomen or pelvis. Heavily rim calcified 2.4 cm hepatic lesion, which may represent sequela of old infection or hematoma. Right inguinal lymphadenopathy. Signed: Jennifer Bradford MD Report Verified Date/Time:09/18/2017 17:00:33 Reading Location: [address] Body Reading Room Procedure Note Interface, External Ris In - 09/18/2017 5:02 PM CDT FINAL REPORT CT of the chest, abdomen and pelvis, with contrast Clinical History: nocardia infection, 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 This exam was performed according to our departmental dose optimization program which includes automated exposure control, adjustment of the mA and/or kV according to patient's size and/or use of iterative reconstructive technique. Comparison Film: None Discussion: Visualized thyroid gland is unremarkable. There is no supraclavicular, axillary, mediastinal or hilar lymphadenopathy. Heart and pericardium are unremarkable. There is no mass or consolidation, no pleural effusion. Central airways are patent, no bronchiectasis, or bronchial wall thickening. 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 There is a 2.4 cm lesion in liver with dense peripheral calcification. No biliary ductal dilatation, gallbladder may contain sludge. The spleen, pancreas, adrenal glands are unremarkable. Kidneys demonstrate no hydronephrosis or radiopaque stone. There is a 2.2 cm cyst in the left kidney. Both kidneys are mildly atrophic. No evidence of bowel obstruction, or abnormal bowel wall thickening. Normal appendix. In the pelvis, bladder is unremarkable. Uterus contains small calcified fibroids. No adnexal mass. There are enlarged right inguinal lymph nodes, which appears heterogeneous and may contain areas of necrosis, measuring up to 2 cm. Osseous structures demonstrate degenerative changes. A peritoneal dialysis catheter is present. Impression: No acute process identified in the chest, abdomen or pelvis. Heavily rim calcified 2.4 cm hepatic lesion, which may represent sequela of old infection or hematoma. Right inguinal lymphadenopathy. 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 Comparison Film:None Discussion: Visualized thyroid gland is unremarkable. There is no supraclavicular, axillary, mediastinal or hilar lymphadenopathy. Heart and pericardium are unremarkable. There is no mass or consolidation, no pleural effusion. Central airways are patent, no bronchiectasis, or bronchial wall thickening. 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 There is a 2.4 cm lesion in liver with dense peripheral calcification. No biliary ductal dilatation, gallbladder may contain sludge. The spleen, pancreas, adrenal glands are unremarkable. Kidneys demonstrate no hydronephrosis or radiopaque stone. There is a 2.2 cm cyst in the left kidney. Both kidneys are mildly atrophic. No evidence of bowel obstruction, or abnormal bowel wall thickening. Normal appendix. In the pelvis, bladder is unremarkable. Uterus contains small calcified fibroids. No adnexal mass. There are enlarged right inguinal lymph nodes, which appears heterogeneous and may contain areas of necrosis, measuring up to 2 cm. Osseous structures demonstrate degenerative changes. A peritoneal dialysis catheter is present. Impression: No acute process identified in the chest, abdomen or pelvis. Heavily rim calcified 2.4 cm hepatic lesion, which may represent sequela of old infection or hematoma. Right inguinal lymphadenopathy. Signed: Jennifer Bradford MD Report Verified Date/Time:09/18/2017 17:00:33 Reading Location: [facility] B1 C013Y CT Body Reading Room Procedure Note Interface, External Ris In - 09/18/2017 5:02 PM CDT FINAL REPORT CT of the chest, abdomen and pelvis, with contrast Clinical History: nocardia infection, 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 This exam was performed according to our departmental dose optimization program which includes automated exposure control, adjustment of the mA and/or kV according to patient's size and/or use of iterative reconstructive technique. Comparison Film: None Discussion: Visualized thyroid gland is unremarkable. There is no supraclavicular, axillary, mediastinal or hilar lymphadenopathy. Heart and pericardium are unremarkable. There is no mass or consolidation, no pleural effusion. Central airways are patent, no bronchiectasis, or bronchial wall thickening. 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 There is a 2.4 cm lesion in liver with dense peripheral calcification. No biliary ductal dilatation, gallbladder may contain sludge. The spleen, pancreas, adrenal glands are unremarkable. Kidneys demonstrate no hydronephrosis or radiopaque stone. There is a 2.2 cm cyst in the left kidney. Both kidneys are mildly atrophic. No evidence of bowel obstruction, or abnormal bowel wall thickening. Normal appendix. In the pelvis, bladder is unremarkable. Uterus contains small calcified fibroids. No adnexal mass. There are enlarged right inguinal lymph nodes, which appears heterogeneous and may contain areas of necrosis, measuring up to 2 cm. Osseous structures demonstrate degenerative changes. A peritoneal dialysis catheter is present. Impression: No acute process identified in the chest, abdomen or pelvis. Heavily rim calcified 2.4 cm hepatic lesion, which may represent sequela of old infection or hematoma. Right inguinal lymphadenopathy. Signed: Jennifer Bradford MD Report Verified Date/Time: 09/18/2017 17:00:33 Reading Location: [facility] C013Y CT Body Reading Room Manual Differential (09/17/2017 5:10 AM)Only the most recent of3 resultswithin the time period is included. Component Value Ref Range % Neutros 78 % % Lymphs 9 % % Monos 8 % % Eos 3 % % Bands 1 0 - 10 % % Atypical Lymphs 1 (H) 0 - 0 % # Neutros 14.90 (H) 1.56 - 6.13 K/ul # Lymphs 1.72 1.18 - 3.74 K/ul # Monos 1.53 (H) 0.24 - 0.36 K/uL # Eos 0.57 (H) 0.04 - 0.36 K/uL # Bands 0.19 0.00 - 0.80 K/uL # Atypical Lymphs 0.19 (H) 0.00 - 0.00 K/uL Total Counted 100 nRBC (manual) 3 (H) 0 - 0 /100 WBC WBC Morphology Normal Platelet Morphology Normal Anisocytosis 1+ few Artifact Present Platelet Conc Increased Specimen Performing [place] [address] Narrative Received comment: User comments: Slide comments: PTH, intact (09/15/2017 6:10 AM)Only the most recent of2 resultswithin the time period is included. Component Value Ref Range PTH 163.0 (H) 8.5 - 72.5 pg/mL Specimen Performing [place] [address] MR lower extremity without IV contrast right side (09/14/2017 6:45 PM) Specimen Performing Laboratory GE [facility] Narrative FINAL REPORT MR, EXTREMITY, LOWER, WITHOUT CONTRAST, RIGHT INDICATION: "Right jacobo infection with black eschar with tracking and now septic. Evaluate for deep infection" COMPARISON: Tib-fib x-ray 09/09/2017 09/09/2017 TECHNIQUE: Multiplanar, multisequence MR images of the right tibia and fibula without contrast. FINDINGS: Along the high medial aspect of the leg, there is a thin tubular fluid collection in the subcutaneous layer.This small collection extends from the skin surface just below the level of the knee joint and then wraps anterior laterally around the leg where it terminates at the level of the ankle joint and anterior inferior tib-fib syndesmosis. This collection is confined to the subcutaneous layer. No extension into the deep fascia of the leg. No intramuscular or bone marrow edema. IMPRESSION: Thin fluid collection spanning the entire leg from superomedial to inferolateral. This is confined to the subcutaneous layer. No deep soft tissue infection. No drainable fluid collection. Questionable extension to the skin surface superomedially. Signed: Ajith Jackson MD Report Verified Date/Time:09/14/2017 21:45:20 Reading Location: [address] Transitional Reading Room Procedure Note Interface, External Ris In - 09/14/2017 9:47 PM CDT FINAL REPORT MR, EXTREMITY, LOWER, WITHOUT CONTRAST, RIGHT INDICATION: "Right jacobo infection with black eschar with tracking and now septic. Evaluate for deep infection" COMPARISON: Tib-fib x-ray 09/09/2017 09/09/2017 TECHNIQUE: Multiplanar, multisequence MR images of the right tibia and fibula without contrast. FINDINGS: Along the high medial aspect of the leg, there is a thin tubular fluid collection in the subcutaneous layer. This small collection extends from the skin surface just below the level of the knee joint and then wraps anterior laterally around the leg where it terminates at the level of the ankle joint and anterior inferior tib-fib syndesmosis. This collection is confined to the subcutaneous layer. No extension into the deep fascia of the leg. No intramuscular or bone marrow edema. IMPRESSION: Thin fluid collection spanning the entire leg from superomedial to inferolateral. This is confined to the subcutaneous layer. No deep soft tissue infection. No drainable fluid collection. Questionable extension to the skin surface superomedially. Signed: Ajith Jackson MD Report Verified Date/Time: 09/14/2017 21:45:20 Reading Location: [address] Transitional Reading Room Urinalysis w/Microscopic + Reflex to Culture (09/14/2017 4:00 AM) Component Value Ref Range Color, UA Yellow Clarity, UA Clear Specific [place], UA 1.009 1.001 - 1.035 pH, UA 7.5 5.0 - 8.0 Protein, UA 200 mg/dL (A) Negative Glucose, UA 500 mg/dL (A) Negative Ketones, UA Negative Negative Bilirubin, UA Negative Negative Blood, UA Negative Negative Nitrite, UA Negative Negative Leukocytes, UA Negative Negative Urobilinogen, UA 0.2 0.2 - 1.0 mg/dL RBC, UA <1 /HPF WBC, UA 3 /HPF Squam Epithel, UA <1 /HPF Specimen Source Specimen Performing Laboratory Urine [address] [address] Body fluid culture + gram stain (09/13/2017 10:21 PM)Only the most recent of2 resultswithin the time period is included. Component Value Ref Range Result No growth Gram Stain Result No White blood cells seen Gram Stain Result No organisms seen Specimen Performing Laboratory Body Fluid - Peritoneal Dialysis Fluid [address] [address] POC-Lactic Acid, Arterial (09/13/2017 6:05 PM) Component Value Ref Range POC-Lactic Acid, Arterial 1.7 (H)Comment: TESTED AT [place] [address] 0.4 - 1.3 mmol /L [facility] [address] Specimen Performing Laboratory Blood [address] [address] C-Reactive Protein (09/11/2017 5:19 AM) Component Value Ref Range CRP 15.69 (H) 0.00 - 0.50 mg/dL Specimen Performing Laboratory Blood [address] [address] AFB culture + smear (09/09/2017 7:31 PM) Component Value Ref Range Result Same organism has been isolated from cultures(s) of the same body site and collection date. Repeat identification and susceptibility testing performed only after consultation with the clinical microbiology laboratory. (A) AFB Smear No acid fast bacilli seen Specimen Performing Laboratory Tissue - Skin [address] [address] Surgically obtained culture + gram stain (09/09/2017 7:31 PM) Component Value Ref Range Result <1+ Nocardia species (A)Comment: * - Nocardia species, most closely related to N.elegans Gram Stain Result No WBCs Gram Stain Result No organisms seen Specimen Performing Laboratory Tissue - Skin [address] [address] Narrative By partial 16S gene sequencing, the best match to this isolate is only a 99.2% 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 This isolate could represent a novel or previously undescribed species within the Nocardia genus. Organism Antibiotic Method Susceptibility Nocardia species Amikacin MANUAL METHOD <=1 mcg/mL: Susceptible Nocardia species Amoxicillin + Clavulanate MANUAL METHOD Resistant Nocardia species Ceftriaxone MANUAL METHOD >64 mcg/mL: Resistant Nocardia species Ciprofloxacin MANUAL METHOD 4 mcg/mL: Resistant Nocardia species Clarithromycin MANUAL METHOD >16 mcg/mL: Resistant Nocardia species Doxycycline MANUAL METHOD 4 mcg/mL: Intermediate Nocardia species Linezolid MANUAL METHOD 2 mcg/mL: Susceptible Nocardia species Minocycline MANUAL METHOD 2 mcg/mL: Intermediate Nocardia species Moxifloxacin MANUAL METHOD 2 mcg/mL: Intermediate Nocardia species Tobramycin MANUAL METHOD <=1 mcg/mL: Susceptible Nocardia species Trimethoprim + MANUAL METHOD 1/19 mcg/mL: Susceptible Sulfamethoxazole Comment: Testing performed by: [facility] Dept[facility] of Micro[facility] [address] [facility] [address] [place] [address] Amoxicillin-clavulanic acid IS RESISTANT AT >64/32 MICROGRAM PER ML. Fungus culture + smear (09/09/2017 7:31 PM) Component Value Ref Range Result No fungus isolated in 28 days Fungus Smear No fungi seen Specimen Performing Laboratory Tissue - Skin [address] [address] XR foot 3 views left (09/09/2017 3:56 PM) Specimen Performing Laboratory GE RIS Narrative FINAL REPORT Three views left foot. Bones are diffusely osteopenic. No specific evidence of fracture, dislocation, or acute destructive lesion. Vascular calcifications are noted. Soft tissues are unremarkable. There is a plantar calcaneal spur. 4. Images two views right leg. Bones are osteopenic. No visible fracture, dislocation, destructive lesion. Vascular calcifications are noted. Soft tissues otherwise unremarkable. Two views four images right femur. No visible fracture, dislocation, destructive lesion. Soft tissues are unremarkable. Signed: Kaylyn Watts MD Report Verified Date/Time:09/09/2017 16:31:47 Reading Location: [facility] C013 Consult Reading Room Procedure Note Interface, External Ris In - 09/09/2017 4:34 PM CDT FINAL REPORT Three views left foot. Bones are diffusely osteopenic. No specific evidence of fracture, dislocation, or acute destructive lesion. Vascular calcifications are noted. Soft tissues are unremarkable. There is a plantar calcaneal spur. 4. Images two views right leg. Bones are osteopenic. No visible fracture, dislocation, destructive lesion. Vascular calcifications are noted. Soft tissues otherwise unremarkable. Two views four images right femur. No visible fracture, dislocation, destructive lesion. Soft tissues are unremarkable. Signed: Kaylyn Watts MD Report Verified Date/Time: 09/09/2017 16:31:47 Reading Location: [facility] C013 Consult Reading Room leg / tibia and fibula 2 views right (09/09/2017 3:56 PM) Specimen Performing Laboratory GE RIS Narrative FINAL REPORT Three views left foot. Bones are diffusely osteopenic. No specific evidence of fracture, dislocation, or acute destructive lesion. Vascular calcifications are noted. Soft tissues are unremarkable. There is a plantar calcaneal spur. 4. Images two views right leg. Bones are osteopenic. No visible fracture, dislocation, destructive lesion. Vascular calcifications are noted. Soft tissues otherwise unremarkable. Two views four images right femur. No visible fracture, dislocation, destructive lesion. Soft tissues are unremarkable. Signed: Kaylyn Watts MD Report Verified Date/Time:09/09/2017 16:31:47 Reading Location: [facility] C013 Consult Reading Room Procedure Note Interface, External Ris In - 09/09/2017 4:34 PM CDT FINAL REPORT Three views left foot. Bones are diffusely osteopenic. No specific evidence of fracture, dislocation, or acute destructive lesion. Vascular calcifications are noted. Soft tissues are unremarkable. There is a plantar calcaneal spur. 4. Images two views right leg. Bones are osteopenic. No visible fracture, dislocation, destructive lesion. Vascular calcifications are noted. Soft tissues otherwise unremarkable. Two views four images right femur. No visible fracture, dislocation, destructive lesion. Soft tissues are unremarkable. Signed: Kaylyn Watts MD Report Verified Date/Time: 09/09/2017 16:31:47 Reading Location: [address] Consult Reading Room femur 2 views right (09/09/2017 3:56 PM) Specimen Performing Laboratory GE RIS Narrative FINAL REPORT Three views left foot. Bones are diffusely osteopenic. No specific evidence of fracture, dislocation, or acute destructive lesion. Vascular calcifications are noted. Soft tissues are unremarkable. There is a plantar calcaneal spur. 4. Images two views right leg. Bones are osteopenic. No visible fracture, dislocation, destructive lesion. Vascular calcifications are noted. Soft tissues otherwise unremarkable. Two views four images right femur. No visible fracture, dislocation, destructive lesion. Soft tissues are unremarkable. Signed: Kaylyn Watts MD Report Verified Date/Time:09/09/2017 16:31:47 Reading Location: [address] Consult Reading Room Procedure Note Interface, External Ris In - 09/09/2017 4:34 PM CDT FINAL REPORT Three views left foot. Bones are diffusely osteopenic. No specific evidence of fracture, dislocation, or acute destructive lesion. Vascular calcifications are noted. Soft tissues are unremarkable. There is a plantar calcaneal spur. 4. Images two views right leg. Bones are osteopenic. No visible fracture, dislocation, destructive lesion. Vascular calcifications are noted. Soft tissues otherwise unremarkable. Two views four images right femur. No visible fracture, dislocation, destructive lesion. Soft tissues are unremarkable. Signed: Kaylyn Watts MD Report Verified Date/Time: 09/09/2017 16:31:47 Reading Location: [address] Consult Reading Room Iron, TIBC, % sat. (without ferritin) (09/09/2017 4:02 AM) Component Value Ref Range Iron 41 40 - 160 ug/dL TIBC 134 (L) 250 - 450 ug/dL Iron % Saturation 31 20 - 55 % Specimen Performing Laboratory Blood [address] [address] Reticulocyte count (09/09/2017 4:02 AM) Component Value Ref Range % Retic 2.3 (H) 0.5 - 1.7 % Specimen Performing Laboratory Blood [address] [address] Ferritin (09/09/2017 4:02 AM) Component Value Ref Range Ferritin 742 (H) 5 - 275 ng/mL Specimen Performing Laboratory Blood [address] [address] ECHOCARDIOGRAM REPORT - SCAN (09/08/2017 5:50 PM)2D Echo W/Doppler(CW/PW/Color ) (09/08/2017 2:41 PM) Component Value Ref Range Ejection Fraction Specimen Performing Laboratory [facility] Narrative Transthoracic Echocardiography Report (TTE) Demographics Patient Name Camilo WHITE of Study2017 CAT [id number] Gender Female Visit Number [id number] Race [id number] Number [id number] Number Date of Birth1945 Referring PhysicianJordana Song Age72 year(s) SonLynnette Claros RDCS AnalysMehul Tolentino RDCS Interpreting Oly Gaspar MD Physician Procedure Type of Study TTE procedure:2DECHO W DOPPLER(CW/PW/COLOR) (Routine) Indications:Unexplained Dyspnea. Clinical History HGB 7.7 HCT 24.8 % ESRD, HTN, DM, HLD Height: 59 inches Weight: 76.2 kg (168 lbs) BSA: 1.71 m^2 BMI: 33.93 kg/m^2 HR: 76 bpm BP: 142/67 mmHg Summary 1. The left ventricle is chamber size (by vol index) is normal (female - LVED vol - 29-61ml/m2). Mild LVH noted. All of the LV segments contract normally . Global LV systolic function normal . Estimated LVEF by qualitative assessment is normal (>60%) . Grade 2 diastolic dysfunction. 2. The right ventricular chamber size and systolic function are within normal limits. 3. LA size is mildly enlarged (35-41 ml/m2) . RA cavity size is normal . 4. A trace of tricuspid regurgitation. Peak systolic pressure may be underestimated; partial TR signal. Estimated peak systolic pressure is at least 25-30 mmHg. The estimated RA pressure by IVC dynamics 0-5mmHg . Previous Study No prior exam available for comparison. Signature Findings Technical Quality: Technically adequate exam. Left Ventricle The left ventricle is chamber size (by vol index) is normal (female - LVED vol - 29-61ml/m2). Mild LVH noted. All of the LV segments contract normally . Global LV systolic function normal . Estimated LVEF by qualitative assessment is normal (>60%) . Grade 2 diastolic dysfunction. Left AtriumLA size is mildly enlarged (35-41 ml/m2) . Right VentricleThe right ventricular chamber size and systolic function are within normal limits. Right Atrium RA cavity size is normal . Aortic Valve Normal AoV structure and function. No evidence of aortic stenosis. No evidence of aortic regurgitation. Mitral Valve Mild MV leaflet thickening. Trace mitral regurgitation. Tricuspid ValveTV structure is normal. A trace of tricuspid regurgitation. Peak systolic pressure may be underestimated; partial TR signal. Estimated peak systolic pressure is at least 25-30 mmHg. Pulmonic Valve Normal PV structure and function by limited views and Doppler. AortaAortic root size (SInus of Valsalva diameter) is normal . PericardiumNo pericardial effusion is visualized. IVC/SVC/PA/PV/PleuralThe estimated RA pressure by IVC dynamics 0-5mmHg . The inferior vena cava size is normal . The inferior vena cava is adequately visualized. Chambers/Structures Left Atrium LA Volume: 63.34 ml LA Area: 20.87 cm^ 2 LA Vol. Index: 37 ml/m^2 Left Ventricle LVIDd: 4.12 cm LVEDV:75.11 ml LV Septum Diastolic: 1.3 cm LV PW Diastolic: 1.3 cm LVEDV Man's:65.35 ml LVEDVI: 38 ml/m^2 LVOT Diameter: 1.8 cm Right Ventricle RV Systolic Pressure: 27.47 mmHg Aorta Ao Root S of Sandra.: 2.62 cm Doppler/Quantitative Measurements Mitral Valve MV Peak E-Wave: 0.92 m/sMV Peak A-Wave: 1.15 m/s E/ A Ratio: 0.8 Peak Gradient: 3.37 mmHg Deceleration Time: 271.7 msec MV Gio. Peak: Tissue Doppler E' Septal Velocity: 0.04 m/sE/E': 16.7 E' Lateral Velocity: 0.07 m/s Aortic Valve Peak Velocity: 1.23 m/sMean Velocity: 0.88 m/s Peak Gradient: 6.03 mmHg Mean Gradient: 3.43 mmHg AV Area (continuity): 2.32 cm^2 AV VTI: 27.88 cm AV DVI: 0.91 LVOT Peak Velocity: 0.93 m/s Peak Gradient: 3.49 mmHg Mean Velocity: 0.61 m/s Mean Gradient: 1.75 mmHg LVOT Diameter: 1.8 cm LVOT VTI: 25.42 cm LVOT Area: 2.54 cm^2LVOT SV:64.65 ml LVOT CO: 4.91 l/min LVOT CI: 2.87 l/min/m^2 Tricuspid Valve Estimated RAP: 5 mmHg TR Velocity: 2.37 m/s TR Gradient: 22.47 mmHg Pulmonic Valve Estimated PASP: 27.47 mmHg Procedure Note Interface, External Ris In - 09/08/2017 5:21 PM CDT Transthoracic Echocardiography Report (TTE) Demographics Patient Name JESSE WHITE Date of Study 09/08/2017 CAT Gender Female Visit Number [id number] Race Room Number 934 Number Date of 1945 Referring Physician Jordana Song Age 72 year(s) Field Marketing Associate Joseph Claros [facility] Buttonhole Marker Bridgett Tolentino [facility] Interpreting Oly Gaspar MD Physician Procedure Type of Study TTE procedure:2DECHO W DOPPLER(CW/PW/COLOR) (Routine) Indications:Unexplained Dyspnea. Clinical History HGB 7.7 HCT 24.8 % ESRD, HTN, DM, HLD Height: 59 inches Weight: 76.2 kg (168 lbs) BSA: 1.71 m^2 BMI: 33.93 kg/m^2 HR: 76 bpm BP: 142/67 mmHg Summary 1. The left ventricle is chamber size (by vol index) is normal (female - LVED vol - 29-61ml/m2). Mild LVH noted. All of the LV segments contract normally . Global LV systolic function normal . Estimated LVEF by qualitative assessment is normal (>60%) . Grade 2 diastolic dysfunction. 2. The right ventricular chamber size and systolic function are within normal limits. 3. LA size is mildly enlarged (35-41 ml/m2) . RA cavity size is normal . 4. A trace of tricuspid regurgitation. Peak systolic pressure may be underestimated; partial TR signal. Estimated peak systolic pressure is at least 25-30 mmHg. The estimated RA pressure by IVC dynamics 0-5mmHg . Previous Study No prior exam available for comparison. Signature Findings Technical Quality: Technically adequate exam. Left Ventricle The left ventricle is chamber size (by vol index) is normal (female - LVED vol - 29-61ml/m2). Mild LVH noted. All of the LV segments contract normally . Global LV systolic function normal . Estimated LVEF by qualitative assessment is normal (>60%) . Grade 2 diastolic dysfunction. Left Atrium LA size is mildly enlarged (35-41 ml/m2) . Right Ventricle The right ventricular chamber size and systolic function are within normal limits. Right Atrium RA cavity size is normal . Aortic Valve Normal AoV structure and function. No evidence of aortic stenosis. No evidence of aortic regurgitation. Mitral Valve Mild MV leaflet thickening. Trace mitral regurgitation. Tricuspid Valve TV structure is normal. A trace of tricuspid regurgitation. Peak systolic pressure may be underestimated; partial TR signal. Estimated peak systolic pressure is at least 25-30 mmHg. Pulmonic Valve Normal PV structure and function by limited views and Doppler. Aorta Aortic root size (SInus of Valsalva diameter) is normal . Pericardium No pericardial effusion is visualized. IVC/SVC/PA/PV/Pleural The estimated RA pressure by IVC dynamics 0-5mmHg . The inferior vena cava size is normal . The inferior vena cava is adequately visualized. Chambers/Structures Left Atrium LA Volume: 63.34 ml LA Area: 20.87 cm^2 LA Vol. Index: 37 ml/m^2 Left Ventricle LVIDd: 4.12 cm LVEDV:75.11 ml LV Septum Diastolic: 1.3 cm LV PW Diastolic: 1.3 cm LVEDV Man's:65.35 ml LVEDVI: 38 ml/m^2 LVOT Diameter: 1.8 cm Right Ventricle RV Systolic Pressure: 27.47 mmHg Aorta Ao Root S of Sandra.: 2.62 cm Doppler/Quantitative Measurements Mitral Valve MV Peak E-Wave: 0.92 m/s MV Peak A-Wave: 1.15 m/s E/A Ratio: 0.8 Peak Gradient: 3.37 mmHg Deceleration Time: 271.7 msec MV Gio. Peak: Tissue Doppler E' Septal Velocity: 0.04 m/s E/E': 16.7 E' Lateral Velocity: 0.07 m/s Aortic Valve Peak Velocity: 1.23 m/s Mean Velocity: 0.88 m/s Peak Gradient: 6.03 mmHg Mean Gradient: 3.43 mmHg AV Area (continuity): 2.32 cm^2 AV VTI: 27.88 cm AV DVI: 0.91 LVOT Peak Velocity: 0.93 m/s Peak Gradient: 3.49 mmHg Mean Velocity: 0.61 m/s Mean Gradient: 1.75 mmHg LVOT Diameter: 1.8 cm LVOT VTI: 25.42 cm LVOT Area: 2.54 cm^2 LVOT SV:64.65 ml LVOT CO: 4.91 l/min LVOT CI: 2.87 l/min/m^2 Tricuspid Valve Estimated RAP: 5 mmHg TR Velocity: 2.37 m/s TR Gradient: 22.47 mmHg Pulmonic Valve Estimated PASP: 27.47 mmHg Hemoglobin A1c (09/08/2017 4:31 AM) Component Value Ref Range Hemoglobin A1C 9.3 (H) 4.3 - 6.1 % Specimen Performing Laboratory Blood - Arm, Right [address] [address] after 11/11/2016
--- OUTSIDE RECORDS SUMMARY | 2017-11-12 10:49 | XMS REPORT ---
:1945 Author Organization [facility] Address [address] [place] [address] Dr. Garza [address] [place] [id number] Care Team Providers Name Role Phone ANITRA SARAI M. Unavailable Unavailable Problems This patient has no known problems. Allergies, Adverse Reactions, Alerts This patient has no known allergies or adverse reactions. Medications This patient has no known medications. Results Test Description Test Time Test Comments Text Results Atomic Results Result Comments AFB CULTURE + SMEAR 2017-10-25 19:42:00 Test Item Value Reference Range Comments CULTURE (BEAKER) (test Same organism has been isolated qumo=8851) from cultures(s) of the same body site and collection date. Repeat identification and susceptibility testing performed only after consultation with the clinical microbiology laboratory. 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 Amikacin (test code=1) mcg/mL Amoxicillin + Clavulanate (test code=21) Ceftriaxone (test code=52) mcg/mL Ciprofloxacin (test code=7) mcg/mL Clarithromycin (test code=42) mcg/mL Doxycycline (test code=15) mcg/mL Linezolid (test code=40) mcg/mL Minocycline (test code=35) mcg/mL Moxifloxacin (test code=36) mcg/mL Tobramycin (test code=25) mcg/mL Trimethoprim + mcg/mL Sulfamethoxazole (test code=47) GRAM STAIN RESULT (BEAKER) No WBCs (test swcl=0829) GRAM STAIN RESULT (BEAKER) No organisms seen (test bzed=531100) By partial 16S gene sequencing, the best match to this isolate is only a 99.2% 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 This isolate could represent a novel or previously undescribed species within the Nocardiagenus.FUNGUS CULTURE + [id number] 12:57:00 Test Item Value Reference Range Comments CULTURE (BEAKER) (test No fungus isolated in 28 days eriy=1336) FUNGUS SMEAR (BEAKER) (test No fungi seen qibc=3118) BLOOD [id number] 11:00:00 Test Item Value Reference Range Comments CULTURE (BEAKER) (test adcz=4085) No growth in 5 days BLOOD [id number] 11:00:00 Test Item Value Reference Range Comments CULTURE (BEAKER) (test hhpv=2243) No growth in 5 days POCT-GLUCOSE [id number] 07:58:00 Test Item Value Reference Range Comments POC-GLUCOSE METER (BEAKER) 141 mg/dL 70-110 TESTED AT [facility] [address] [facility] (test ifgy=3882) [facility] [address] BASIC METABOLIC [id number] 07:56:00 Test Item Value Reference Range Comments SODIUM (BEAKER) (test 133 meq/L 136-145 mcdh=667) POTASSIUM (BEAKER) (test 3.2 meq/L 3.5-5.1 hyvb=736) CHLORIDE (BEAKER) (test 95 meq/L 98-107 wozr=939) CO2 (BEAKER) (test 29 meq/L 22-29 smsz=405) BLOOD UREA NITROGEN 38 mg/dL 7-21 (BEAKER) (test tayb=448) CREATININE (BEAKER) (test 6.46 mg/dL 0.57-1.25 wqgq=846) GLUCOSE RANDOM (BEAKER) 125 mg/dL 70-105 (test gzhj=467) CALCIUM (BEAKER) (test 9.4 mg/dL 8.4-10.2 xotm=554) EGFR (BEAKER) (test 6 mL/min/1.73 sq m ESTIMATED GFR IS NOT zdae=3120) ACCURATE CREATININE CLEARANCE IN PREDICTING GLOMERULAR FILTRATION RATE. ESTIMATED GFR IS NOT APPLICABLE FOR DIALYSIS PATIENTS. [id number] 07:39:00 Test Item Value Reference Range Comments PHOSPHORUS (BEAKER) (test lurw=292) 3.5 mg/dL 2.3-4.7 [id number] 07:39:00 Test Item Value Reference Range Comments MAGNESIUM (BEAKER) (test qxge=932) 2.0 mg/dL 1.6-2.6 CBC W/PLT COUNT & AUTO [id number] 07:29:00 Test Item Value Reference Range Comments WHITE BLOOD CELL COUNT (BEAKER) (test uepl=109) 8.6 K/ L 3.5-10.5 RED BLOOD CELL COUNT (BEAKER) (test cfbb=760) 2.68 M/ L 3.93-5.22 HEMOGLOBIN (BEAKER) (test sbjx=288) 7.8 GM/DL 11.2-15.7 HEMATOCRIT (BEAKER) (test sduf=896) 25.7 % 34.1-44.9 MEAN CORPUSCULAR VOLUME (BEAKER) (test txlv=439) 95.9 fL 79.4-94.8 MEAN CORPUSCULAR HEMOGLOBIN (BEAKER) (test 29.1 pg 25.6-32.2 ggle=336) MEAN CORPUSCULAR HEMOGLOBIN CONC (BEAKER) (test 30.4 GM/DL 32.2-35.5 polc=223) RED CELL DISTRIBUTION WIDTH (BEAKER) (test 14.4 % 11.7-14.4 kixb=532) PLATELET COUNT (BEAKER) (test bken=102) 294 K/CU MM 150-450 MEAN PLATELET VOLUME (BEAKER) (test fzjq=473) 9.8 fL 9.4-12.3 NUCLEATED RED BLOOD CELLS (BEAKER) (test 2 /100 WBC 0-0 fwbp=962) NEUTROPHILS RELATIVE PERCENT (BEAKER) (test 63 % dfde=957) LYMPHOCYTES RELATIVE PERCENT (BEAKER) (test 21 % ouzn=403) MONOCYTES RELATIVE PERCENT (BEAKER) (test 11 % tuov=168) EOSINOPHILS RELATIVE PERCENT (BEAKER) (test 4 % cqub=295) BASOPHILS RELATIVE PERCENT (BEAKER) (test 1 % abpw=254) NEUTROPHILS ABSOLUTE COUNT (BEAKER) (test 5.39 K/ L 1.56-6.13 wmmh=842) LYMPHOCYTES ABSOLUTE COUNT (BEAKER) (test 1.78 K/ L 1.18-3.74 mysy=618) MONOCYTES ABSOLUTE COUNT (BEAKER) (test 0.92 K/ L 0.24-0.36 rblu=936) EOSINOPHILS ABSOLUTE COUNT (BEAKER) (test 0.32 K/ L 0.04-0.36 ilar=654) BASOPHILS ABSOLUTE COUNT (BEAKER) (test 0.06 K/ L 0.01-0.08 xdhd=184) IMMATURE GRANULOCYTES-RELATIVE PERCENT (BEAKER) 1 % 0-1 (test fxkv=8081) POCT-GLUCOSE [id number] 21:53:00 Test Item Value Reference Range Comments POC-GLUCOSE METER (BEAKER) 232 mg/dL 70-110 TESTED AT [address] (test cmhe=0374) [place] [address] POCT-GLUCOSE [id number] 17:23:00 Test Item Value Reference Range Comments POC-GLUCOSE METER (BEAKER) 154 mg/dL 70-110 TESTED AT [address] (test huab=6895) [place] [address] POCT-GLUCOSE [id number] 12:34:00 Test Item Value Reference Range Comments POC-GLUCOSE METER (BEAKER) 170 mg/dL 70-110 TESTED AT [address] (test njoh=3433) [place] [id number] BASIC METABOLIC [id number] 10:57:00 Test Item Value Reference Range Comments SODIUM (BEAKER) (test 131 meq/L 136-145 ipvd=029) POTASSIUM (BEAKER) (test 3.4 meq/L 3.5-5.1 xlfq=052) CHLORIDE (BEAKER) (test 96 meq/L 98-107 eezm=820) CO2 (BEAKER) (test 25 meq/L 22-29 uecw=062) BLOOD UREA NITROGEN 38 mg/dL 7-21 (BEAKER) (test lnxs=332) CREATININE (BEAKER) (test 6.86 mg/dL 0.57-1.25 ksbn=443) GLUCOSE RANDOM (BEAKER) 134 mg/dL 70-105 (test lcra=899) CALCIUM (BEAKER) (test 8.8 mg/dL 8.4-10.2 kgaw=501) EGFR (BEAKER) (test 6 mL/min/1.73 sq m ESTIMATED GFR IS NOT hvgu=9845) ACCURATE CREATININE CLEARANCE IN PREDICTING GLOMERULAR FILTRATION RATE. ESTIMATED GFR IS NOT APPLICABLE FOR DIALYSIS PATIENTS. [id number] 10:53:00 Test Item Value Reference Range Comments PHOSPHORUS (BEAKER) (test vndx=401) 3.7 mg/dL 2.3-4.7 [id number] 10:53:00 Test Item Value Reference Range Comments MAGNESIUM (BEAKER) (test pecx=589) 2.1 mg/dL 1.6-2.6 POCT-GLUCOSE [id number] 07:59:00 Test Item Value Reference Range Comments POC-GLUCOSE METER (BEAKER) 142 mg/dL 70-110 TESTED AT [facility] [address] [facility] (test jegu=2527) [place] [address] CBC W/PLT COUNT & AUTO [id number] 05:56:00 Test Item Value Reference Range Comments WHITE BLOOD CELL COUNT (BEAKER) (test riex=919) 8.4 K/ L 3.5-10.5 RED BLOOD CELL COUNT (BEAKER) (test sbxe=717) 2.67 M/ L 3.93-5.22 HEMOGLOBIN (BEAKER) (test wsgs=973) 7.9 GM/DL 11.2-15.7 HEMATOCRIT (BEAKER) (test mlno=224) 26.2 % 34.1-44.9 MEAN CORPUSCULAR VOLUME (BEAKER) (test gext=545) 98.1 fL 79.4-94.8 MEAN CORPUSCULAR HEMOGLOBIN (BEAKER) (test 29.6 pg 25.6-32.2 fsoh=748) MEAN CORPUSCULAR HEMOGLOBIN CONC (BEAKER) (test 30.2 GM/DL 32.2-35.5 vmsr=685) RED CELL DISTRIBUTION WIDTH (BEAKER) (test 14.6 % 11.7-14.4 biql=826) PLATELET COUNT (BEAKER) (test rjuj=552) 294 K/CU MM 150-450 MEAN PLATELET VOLUME (BEAKER) (test gopk=683) 10.4 fL 9.4-12.3 NUCLEATED RED BLOOD CELLS (BEAKER) (test 2 /100 WBC 0-0 yfpp=789) NEUTROPHILS RELATIVE PERCENT (BEAKER) (test 66 % izuo=814) LYMPHOCYTES RELATIVE PERCENT (BEAKER) (test 19 % qfvi=723) MONOCYTES RELATIVE PERCENT (BEAKER) (test 9 % vygs=818) EOSINOPHILS RELATIVE PERCENT (BEAKER) (test 4 % rssn=687) BASOPHILS RELATIVE PERCENT (BEAKER) (test 1 % dtlf=450) NEUTROPHILS ABSOLUTE COUNT (BEAKER) (test 5.57 K/ L 1.56-6.13 rjwc=917) LYMPHOCYTES ABSOLUTE COUNT (BEAKER) (test 1.61 K/ L 1.18-3.74 hjbq=225) MONOCYTES ABSOLUTE COUNT (BEAKER) (test 0.73 K/ L 0.24-0.36 hdqj=173) EOSINOPHILS ABSOLUTE COUNT (BEAKER) (test 0.37 K/ L 0.04-0.36 suzx=603) BASOPHILS ABSOLUTE COUNT (BEAKER) (test 0.06 K/ L 0.01-0.08 fzkt=364) IMMATURE GRANULOCYTES-RELATIVE PERCENT (BEAKER) 1 % 0-1 (test dyhe=3920) POCT-GLUCOSE [id number] 21:31:00 Test Item Value Reference Range Comments POC-GLUCOSE METER (BEAKER) 182 mg/dL 70-110 TESTED AT [facility] [address] [facility] (test zvsi=7782) [facility] [address] POCT-GLUCOSE [id number] 17:05:00 Test Item Value Reference Range Comments POC-GLUCOSE METER (BEAKER) 243 mg/dL 70-110 TESTED AT [address] (test leby=3895) [place] [id number] EEG AWAKE AND [id number] 15:43:00Reason for exam:->AMSDate(s) of EEDATE OF REPORT: 10/05/2017ACC: [id number] Number: [id number] time: 15: 28Stop time: 15:50ICD-10: R41.82CPT Code: 29338 HISTORY: 72 y/o with PMHx of ESRD [...] limitation, during the maximally alert state, a 9 -10 Hz posterior dominant rhythm was seen that [...] regions bilaterally, at times sharply contoured. CLINICAL CORRELATION:This study could represent possible focal cortical irritability over the central region bilaterally;however, the significance is unclear. Clinical correlation is recommended. Bozena Lawrence [facility] POCT-GLUCOSE [id number] 11:57 :00 Test Item Value Reference Range Comments POC-GLUCOSE METER (BEAKER) 172 mg/dL 70-110 TESTED AT [address] (test nkpm=6756) [facility] [address] POCT-GLUCOSE [id number] 08:00:00 Test Item Value Reference Range Comments POC-GLUCOSE METER (BEAKER) 195 mg/dL 70-110 TESTED AT [address] (test zqng=5004) [facility] [address] BASIC METABOLIC [id number] 07:14:00 Test Item Value Reference Range Comments SODIUM (BEAKER) (test 130 meq/L 136-145 zhrc=638) POTASSIUM (BEAKER) (test 3.4 meq/L 3.5-5.1 nryx=026) CHLORIDE (BEAKER) (test 94 meq/L 98-107 rfwt=178) CO2 (BEAKER) (test 26 meq/L 22-29 aojw=896) BLOOD UREA NITROGEN 37 mg/dL 7-21 (BEAKER) (test tufj=687) CREATININE (BEAKER) (test 6.87 mg/dL 0.57-1.25 zxcb=096) GLUCOSE RANDOM (BEAKER) 145 mg/dL 70-105 (test smru=673) CALCIUM (BEAKER) (test 9.2 mg/dL 8.4-10.2 hjua=808) EGFR (BEAKER) (test 6 mL/min/1.73 sq m ESTIMATED GFR IS NOT ycga=5039) ACCURATE CREATININE CLEARANCE IN PREDICTING GLOMERULAR FILTRATION RATE. ESTIMATED GFR IS NOT APPLICABLE FOR DIALYSIS PATIENTS. [id number] 07:03:00 Test Item Value Reference Range Comments PHOSPHORUS (BEAKER) (test husw=233) 3.2 mg/dL 2.3-4.7 [id number] 07:03:00 Test Item Value Reference Range Comments MAGNESIUM (BEAKER) (test dimu=419) 2.0 mg/dL 1.6-2.6 CBC W/PLT COUNT & AUTO [id number] 06:24:00 Test Item Value Reference Range Comments WHITE BLOOD CELL COUNT (BEAKER) (test kccn=375) 9.3 K/ L 3.5-10.5 RED BLOOD CELL COUNT (BEAKER) (test fpat=415) 2.76 M/ L 3.93-5.22 HEMOGLOBIN (BEAKER) (test hvqj=989) 8.0 GM/DL 11.2-15.7 HEMATOCRIT (BEAKER) (test udhu=253) 26.6 % 34.1-44.9 MEAN CORPUSCULAR VOLUME (BEAKER) (test ljqn=187) 96.4 fL 79.4-94.8 MEAN CORPUSCULAR HEMOGLOBIN (BEAKER) (test 29.0 pg 25.6-32.2 qwpj=877) MEAN CORPUSCULAR HEMOGLOBIN CONC (BEAKER) (test 30.1 GM/DL 32.2-35.5 voip=752) RED CELL DISTRIBUTION WIDTH (BEAKER) (test 14.0 % 11.7-14.4 rgjn=391) PLATELET COUNT (BEAKER) (test waga=821) 294 K/CU MM 150-450 MEAN PLATELET VOLUME (BEAKER) (test vjqi=375) 10.0 fL 9.4-12.3 NUCLEATED RED BLOOD CELLS (BEAKER) (test 2 /100 WBC 0-0 jrrh=140) NEUTROPHILS RELATIVE PERCENT (BEAKER) (test 70 % mtsq=786) LYMPHOCYTES RELATIVE PERCENT (BEAKER) (test 17 % tacg=927) MONOCYTES RELATIVE PERCENT (BEAKER) (test 8 % srbl=822) EOSINOPHILS RELATIVE PERCENT (BEAKER) (test 4 % pwjt=780) BASOPHILS RELATIVE PERCENT (BEAKER) (test 1 % vyoj=477) NEUTROPHILS ABSOLUTE COUNT (BEAKER) (test 6.48 K/ L 1.56-6.13 jrav=449) LYMPHOCYTES ABSOLUTE COUNT (BEAKER) (test 1.54 K/ L 1.18-3.74 mwqg=574) MONOCYTES ABSOLUTE COUNT (BEAKER) (test 0.70 K/ L 0.24-0.36 rrff=723) EOSINOPHILS ABSOLUTE COUNT (BEAKER) (test 0.36 K/ L 0.04-0.36 ulss=765) BASOPHILS ABSOLUTE COUNT (BEAKER) (test 0.05 K/ L 0.01-0.08 nmnb=983) IMMATURE GRANULOCYTES-RELATIVE PERCENT (BEAKER) 1 % 0-1 (test yaww=6508) POCT-GLUCOSE [id number] 20:34:00 Test Item Value Reference Range Comments POC-GLUCOSE METER (BEAKER) 207 mg/dL 70-110 TESTED AT [address] (test ogaf=9879) [place] [address] POCT-GLUCOSE [id number] 16:41:00 Test Item Value Reference Range Comments POC-GLUCOSE METER (BEAKER) 137 mg/dL 70-110 TESTED AT [address] (test eqik=2511) [place] [address] PERITONEAL DIALYSIS EFFLUENT [id number] 15:06:00 Test Item Value Reference Range Comments CULTURE (BEAKER) (test jxoo=6010) No growth POCT-GLUCOSE [id number] 11:46:00 Test Item Value Reference Range Comments POC-GLUCOSE METER (BEAKER) 151 mg/dL 70-110 TESTED AT [address] (test twrg=7912) [place] [address] BASIC METABOLIC [id number] 11:23:00 Test Item Value Reference Range Comments SODIUM (BEAKER) (test 133 meq/L 136-145 lqgb=181) POTASSIUM (BEAKER) (test 3.7 meq/L 3.5-5.1 lqjl=158) CHLORIDE (BEAKER) (test 93 meq/L 98-107 gvvp=095) CO2 (BEAKER) (test 25 meq/L 22-29 dpdi=605) BLOOD UREA NITROGEN 37 mg/dL 7-21 (BEAKER) (test xgta=498) CREATININE (BEAKER) (test 7.08 mg/dL 0.57-1.25 tdey=547) GLUCOSE RANDOM (BEAKER) 134 mg/dL 70-105 (test rbda=850) CALCIUM (BEAKER) (test 9.1 mg/dL 8.4-10.2 tlqc=055) EGFR (BEAKER) (test 6 mL/min/1.73 sq m ESTIMATED GFR IS NOT hnux=3627) ACCURATE CREATININE CLEARANCE IN PREDICTING GLOMERULAR FILTRATION RATE. ESTIMATED GFR IS NOT APPLICABLE FOR DIALYSIS PATIENTS. [id number] 11:17:00 Test Item Value Reference Range Comments PHOSPHORUS (BEAKER) (test abal=272) 3.4 mg/dL 2.3-4.7 [id number] 11:17:00 Test Item Value Reference Range Comments MAGNESIUM (BEAKER) (test ggir=756) 2.1 mg/dL 1.6-2.6 POCT-GLUCOSE [id number] 11:16:00 Test Item Value Reference Range Comments POC-GLUCOSE METER (BEAKER) 150 mg/dL 70-110 TESTED AT [facility] [address] [facility] (test mnou=4409) [facility] [address] CBC W/PLT COUNT & AUTO [id number] 05:58:00 Test Item Value Reference Range Comments WHITE BLOOD CELL COUNT (BEAKER) (test grpl=557) 10.6 K/ L 3.5-10.5 RED BLOOD CELL COUNT (BEAKER) (test tbnb=171) 2.74 M/ L 3.93-5.22 HEMOGLOBIN (BEAKER) (test ynui=756) 8.3 GM/DL 11.2-15.7 HEMATOCRIT (BEAKER) (test ayfo=542) 28.1 % 34.1-44.9 MEAN CORPUSCULAR VOLUME (BEAKER) (test umuw=569) 102.6 fL 79.4-94.8 MEAN CORPUSCULAR HEMOGLOBIN (BEAKER) (test 30.3 pg 25.6-32.2 weuv=576) MEAN CORPUSCULAR HEMOGLOBIN CONC (BEAKER) (test 29.5 GM/DL 32.2-35.5 bowu=705) RED CELL DISTRIBUTION WIDTH (BEAKER) (test 13.8 % 11.7-14.4 ohpn=345) PLATELET COUNT (BEAKER) (test ytny=575) 286 K/CU MM 150-450 MEAN PLATELET VOLUME (BEAKER) (test oozg=744) 9.9 fL 9.4-12.3 NUCLEATED RED BLOOD CELLS (BEAKER) (test 4 /100 WBC 0-0 mcez=720) NEUTROPHILS RELATIVE PERCENT (BEAKER) (test 71 % zllo=490) LYMPHOCYTES RELATIVE PERCENT (BEAKER) (test 15 % znic=910) MONOCYTES RELATIVE PERCENT (BEAKER) (test 8 % xlzd=982) EOSINOPHILS RELATIVE PERCENT (BEAKER) (test 4 % vuwx=987) BASOPHILS RELATIVE PERCENT (BEAKER) (test 1 % zhcd=425) NEUTROPHILS ABSOLUTE COUNT (BEAKER) (test 7.60 K/ L 1.56-6.13 urte=524) LYMPHOCYTES ABSOLUTE COUNT (BEAKER) (test 1.56 K/ L 1.18-3.74 jhfo=003) MONOCYTES ABSOLUTE COUNT (BEAKER) (test 0.86 K/ L 0.24-0.36 gknq=704) EOSINOPHILS ABSOLUTE COUNT (BEAKER) (test 0.41 K/ L 0.04-0.36 pqol=725) BASOPHILS ABSOLUTE COUNT (BEAKER) (test 0.06 K/ L 0.01-0.08 mwfz=331) IMMATURE GRANULOCYTES-RELATIVE PERCENT (BEAKER) 1 % 0-1 (test annl=9256) POCT-GLUCOSE [id number] 20:42:00 Test Item Value Reference Range Comments POC-GLUCOSE METER (BEAKER) 173 mg/dL 70-110 TESTED AT [address] (test zpyq=6954) [place] [address] POCT-GLUCOSE [id number] 18:39:00 Test Item Value Reference Range Comments POC-GLUCOSE METER (BEAKER) 206 mg/dL 70-110 TESTED AT [address] (test lygr=6278) [place] [address] POCT-GLUCOSE [id number] 12:36:00 Test Item Value Reference Range Comments POC-GLUCOSE METER (BEAKER) 148 mg/dL 70-110 TESTED AT [address] (test nbli=6556) [place] [address] POCT-GLUCOSE [id number] 08:44:00 Test Item Value Reference Range Comments POC-GLUCOSE METER (BEAKER) 142 mg/dL 70-110 TESTED AT [address] (test dxzt=8874) [place] [address] BASIC METABOLIC [id number] 08:21:00 Test Item Value Reference Range Comments SODIUM (BEAKER) (test 133 meq/L 136-145 azww=849) POTASSIUM (BEAKER) (test 3.6 meq/L 3.5-5.1 cbfo=984) CHLORIDE (BEAKER) (test 95 meq/L 98-107 qmul=361) CO2 (BEAKER) (test 26 meq/L 22-29 xwdw=062) BLOOD UREA NITROGEN 35 mg/dL 7-21 (BEAKER) (test pwkg=377) CREATININE (BEAKER) (test 6.98 mg/dL 0.57-1.25 xrcm=443) GLUCOSE RANDOM (BEAKER) 123 mg/dL 70-105 (test wusp=057) CALCIUM (BEAKER) (test 9.2 mg/dL 8.4-10.2 mwax=653) EGFR (BEAKER) (test 6 mL/min/1.73 sq m ESTIMATED GFR IS NOT yrxp=3967) ACCURATE CREATININE CLEARANCE IN PREDICTING GLOMERULAR FILTRATION RATE. ESTIMATED GFR IS NOT APPLICABLE FOR DIALYSIS PATIENTS. [id number] 08:02:00 Test Item Value Reference Range Comments PHOSPHORUS (BEAKER) (test lpqs=767) 3.1 mg/dL 2.3-4.7 [id number] 08:02:00 Test Item Value Reference Range Comments MAGNESIUM (BEAKER) (test aida=639) 1.9 mg/dL 1.6-2.6 CBC W/PLT COUNT & AUTO [id number] 07:06:00 Test Item Value Reference Range Comments WHITE BLOOD CELL COUNT (BEAKER) (test qyqe=264) 11.7 K/ L 3.5-10.5 RED BLOOD CELL COUNT (BEAKER) (test qqil=377) 2.94 M/ L 3.93-5.22 HEMOGLOBIN (BEAKER) (test gond=504) 8.8 GM/DL 11.2-15.7 HEMATOCRIT (BEAKER) (test zogs=521) 29.5 % 34.1-44.9 MEAN CORPUSCULAR VOLUME (BEAKER) (test bbpd=596) 100.3 fL 79.4-94.8 MEAN CORPUSCULAR HEMOGLOBIN (BEAKER) (test 29.9 pg 25.6-32.2 koro=787) MEAN CORPUSCULAR HEMOGLOBIN CONC (BEAKER) (test 29.8 GM/DL 32.2-35.5 eswm=478) RED CELL DISTRIBUTION WIDTH (BEAKER) (test 13.6 % 11.7-14.4 ciin=325) PLATELET COUNT (BEAKER) (test wzku=655) 283 K/CU MM 150-450 MEAN PLATELET VOLUME (BEAKER) (test jszl=886) 11.0 fL 9.4-12.3 NUCLEATED RED BLOOD CELLS (BEAKER) (test 4 /100 WBC 0-0 owbh=455) NEUTROPHILS RELATIVE PERCENT (BEAKER) (test 71 % ozzx=615) LYMPHOCYTES RELATIVE PERCENT (BEAKER) (test 14 % efgk=199) MONOCYTES RELATIVE PERCENT (BEAKER) (test 7 % pimp=544) EOSINOPHILS RELATIVE PERCENT (BEAKER) (test 6 % jxrg=962) BASOPHILS RELATIVE PERCENT (BEAKER) (test 1 % hhtr=442) NEUTROPHILS ABSOLUTE COUNT (BEAKER) (test 8.32 K/ L 1.56-6.13 fzmv=408) LYMPHOCYTES ABSOLUTE COUNT (BEAKER) (test 1.63 K/ L 1.18-3.74 nkee=325) MONOCYTES ABSOLUTE COUNT (BEAKER) (test 0.86 K/ L 0.24-0.36 bzeh=687) EOSINOPHILS ABSOLUTE COUNT (BEAKER) (test 0.64 K/ L 0.04-0.36 qhyw=125) BASOPHILS ABSOLUTE COUNT (BEAKER) (test 0.08 K/ L 0.01-0.08 lkyr=674) IMMATURE GRANULOCYTES-RELATIVE PERCENT (BEAKER) 1 % 0-1 (test uzvp=2750) POCT-GLUCOSE [id number] 23:17:00 Test Item Value Reference Range Comments POC-GLUCOSE METER (BEAKER) 355 mg/dL 70-110 TESTED AT [facility] [address] [place] [address] (test ywop=9071) [facility] [address] EEG AWAKE AND [id number] 17:52:00Reason for exam:->visual hallucinations of unknown etiologyDate(s) of EE10/02/2017DATE OF REPORT: 2017ACC: [id number] Number: [id number] time: 15:25Stop time: 15:47ICD-10: R41.82CPT Code: 78939 HISTORY: 72 yo with PMHx of ESRD on PD, HTN, IDDM admitted with cellulitis now with AMS and visual hallucinations. MEDICATIONS THAT COULD AFFECT EEG: NoneTECHNICAL SUMMARY: This is a digital video-EEG recorded with 32 input channels reviewed with bipolarand referential montages using the modified combinatorial system nomenclature. DESCRIPTION OF RECORD: During the maximally alert state a 9 Hz posterior dominant rhythm was seen that was symmetric, reactive to eye opening and well regulated. The background was symmetric and organized with an anteriorposterior voltage/frequency gradient. Drowsiness was characterized by alpha attenuation and increased frontocentral theta. Stage 2 sleep was not recorded. SIGNIFICANT VIDEO EVENTS: None SIGNIFICANT ELECTROCARDIOGRAM EVENTS: None HV: Hyperventilation was not performed. PHOTIC STIMULATION: Photic stimulation was done from 1-31 Hz; no photic driving was seen; photoparoxysmal responses were absent. IMPRESSION: Normal Awake and Drowsy EEG CLINICAL CORRELATION: An EEG without epileptiform discharges does not exclude the possibility of epilepsy. If the clinical suspicion of epilepsy remains, consider additional EEG recordings. Kathia Morrow MDNeurophysiology/Epilepsy Fellow Attending note: I personally reviewed this EEG record in its entirety and I agree with the details of this report.Moises Gleasonending NeurophysiologistCHI [facility] Electronically signed by: DARINEL ROBERT MD on 2017 05:52 PMPOCT-GLUCOSE [id number] 17:06:00 Test Item Value Reference Range Comments POC-GLUCOSE METER (BEAKER) 129 mg/dL 70-110 TESTED AT [address] (test sdas=2646) [facility] [address] POCT-GLUCOSE [id number] 12:10:00 Test Item Value Reference Range Comments POC-GLUCOSE METER (BEAKER) 190 mg/dL 70-110 TESTED AT [address] (test rwkc=3638) [facility] [address] POCT-GLUCOSE [id number] 07:38:00 Test Item Value Reference Range Comments POC-GLUCOSE METER (BEAKER) 266 mg/dL 70-110 TESTED AT [address] (test qrpe=2102) [facility] [address] LACTIC ACID, VENOUS, WHOLE [id number] 06:36:00 Test Item Value Reference Range Comments LACTATE BLOOD VENOUS (2) 2.6 mmol/L 0.5-2.2 Specimen slightly hemolyzed (BEAKER) (test desz=5156) Effective 07/04/2015: Units/Reference Range ChangeNew: 0.5-2.2 mmol/L Previous: 5 -20 mg/[id number] 06:12:00 Test Item Value Reference Range Comments PROCALCITONIN (BEAKER) (test heft=0569) 0.67 ng/mL <0.05 SEPSIS RISK (ng/mL)Low: 0.05-0.50Intermediate: 0.51-2.00High: & gt;=2.01BASIC METABOLIC [id number] 05:31:00 Test Item Value Reference Range Comments SODIUM (BEAKER) (test 137 meq/L 136-145 sofw=534) POTASSIUM (BEAKER) (test 3.1 meq/L 3.5-5.1 kxgf=441) CHLORIDE (BEAKER) (test 98 meq/L 98-107 muhz=180) CO2 (BEAKER) (test 25 meq/L 22-29 ilzh=667) BLOOD UREA NITROGEN 39 mg/dL 7-21 (BEAKER) (test ngxv=015) CREATININE (BEAKER) (test 7.67 mg/dL 0.57-1.25 wpoq=079) GLUCOSE RANDOM (BEAKER) 248 mg/dL 70-105 (test cjjc=441) CALCIUM (BEAKER) (test 9.7 mg/dL 8.4-10.2 uolu=224) EGFR (BEAKER) (test 5 mL/min/1.73 sq m ESTIMATED GFR IS NOT zlnp=4969) ACCURATE CREATININE CLEARANCE IN PREDICTING GLOMERULAR FILTRATION RATE. ESTIMATED GFR IS NOT APPLICABLE FOR DIALYSIS PATIENTS. [id number] 05:30:00 Test Item Value Reference Range Comments PHOSPHORUS (BEAKER) (test owoj=875) 3.8 mg/dL 2.3-4.7 [id number] 05:30:00 Test Item Value Reference Range Comments MAGNESIUM (BEAKER) (test lrgd=477) 2.1 mg/dL 1.6-2.6 POCT-BLOOD GASES, [id number] 05:24:00 Test Item Value Reference Range Comments TEMP, CELSIUS-POC (BEAKER) 36.1 (test ehvn=2900) FIO2-POC (BEAKER) (test 21 TESTED AT [address] inkk=6834) [place] [address] PH, ARTERIAL-POC (BEAKER) 7.480 7.350-7.450 (test ovuj=0974) PCO2, ARTERIAL-POC (BEAKER) 36.6 mm Hg 35.0-45.0 (test unxv=9963) PO2, ARTERIAL-POC (BEAKER) 56.0 mm Hg 80.0-90.0 (test kgky=6098) SO2, ARTERIAL-POC (BEAKER) 92.0 % 96.0-97.0 (test lxcw=0744) HCO3, ARTERIAL-POC (BEAKER) 27.5 meq/L 21.0-29.0 (test chos=3718) BASE EXCESS, ARTERIAL-POC 4.0 meq/L -2.0-3.0 (BEAKER) (test zmst=7656) [id number] 05:24:00 Test Item Value Reference Range Comments POC-SODIUM (BEAKER) (test 137 meq/L 135-148 TESTED AT [address] rnnn=5810) [place] [address] [id number] 05:24:00 Test Item Value Reference Range Comments POC-POTASSIUM (BEAKER) (test 2.8 meq/L 3.6-5.5 TESTED AT [address] [address] glzj=9071) [place] [address] [id number] 05:24:00 Test Item Value Reference Range Comments POC-GLUCOSE (BEAKER) (test 254 mg/dL 70-110 TESTED AT [address] ychs=9409) [place] [address] POCT-CALCIUM [id number] 05:24:00 Test Item Value Reference Range Comments POC-CALCIUM IONIZED (BEAKER) 1.19 mmol/L 1.12-1.27 TESTED AT [address] (test lnxn=9899) [place] [address] [id number] 05:24:00 Test Item Value Reference Range Comments POC-HEMATOCRIT (BEAKER) (test 27 % 36-45 TESTED AT [address] abie=4857) [place] [address] [id number] 05:24:00 Test Item Value Reference Range Comments POC-HEMOGLOBIN (BEAKER) 9.2 g/dL 12.0-15.0 TESTED AT [address] (test heaz=2118) [facility] [address]MROODP AT [facility] [address] [facility] [address] RAD, CHEST, 1 VIEW, NON [id number] 05:16:00Reason for exam:-> HypotensionShould this be performed at the bedside?->YesFINAL REPORT RAD, CHEST, 1 VIEW, NON DEPT INDICATION: Hypotension COMPARISON: Chest x-ray 6 days ago TECHNIQUE: Single frontal view of the chest. IMPRESSION: Cardiomediastinal silhouette within normal limits allowing for patient rotation to the left.No overt consolidative or congestive change.No acute osseous abnormality. Signed: Ajith Jackson MDReport Verified Date/Time: 10/02/2017 05 :16:31 Reading Location: [address] Transitional Reading Room CBC W/PLT COUNT & AUTO [id number] 05:06:00 Test Item Value Reference Range Comments WHITE BLOOD CELL COUNT (BEAKER) (test ctyd=127) 12.4 K/ L 3.5-10.5 RED BLOOD CELL COUNT (BEAKER) (test lqko=520) 3.04 M/ L 3.93-5.22 HEMOGLOBIN (BEAKER) (test npje=973) 9.1 GM/DL 11.2-15.7 HEMATOCRIT (BEAKER) (test wapm=350) 30.7 % 34.1-44.9 MEAN CORPUSCULAR VOLUME (BEAKER) (test tvuc=342) 101.0 fL 79.4-94.8 MEAN CORPUSCULAR HEMOGLOBIN (BEAKER) (test 29.9 pg 25.6-32.2 qyyt=137) MEAN CORPUSCULAR HEMOGLOBIN CONC (BEAKER) (test 29.6 GM/DL 32.2-35.5 ewma=149) RED CELL DISTRIBUTION WIDTH (BEAKER) (test 13.6 % 11.7-14.4 xday=573) PLATELET COUNT (BEAKER) (test amjk=307) 308 K/CU MM 150-450 MEAN PLATELET VOLUME (BEAKER) (test nhwj=736) 10.0 fL 9.4-12.3 NUCLEATED RED BLOOD CELLS (BEAKER) (test 5 /100 WBC 0-0 wcvl=471) NEUTROPHILS RELATIVE PERCENT (BEAKER) (test 79 % jchg=771) LYMPHOCYTES RELATIVE PERCENT (BEAKER) (test 9 % twmf=311) MONOCYTES RELATIVE PERCENT (BEAKER) (test 8 % zaml=428) EOSINOPHILS RELATIVE PERCENT (BEAKER) (test 3 % bkwf=272) BASOPHILS RELATIVE PERCENT (BEAKER) (test 1 % soka=938) NEUTROPHILS ABSOLUTE COUNT (BEAKER) (test 9.74 K/ L 1.56-6.13 dqyj=841) LYMPHOCYTES ABSOLUTE COUNT (BEAKER) (test 1.16 K/ L 1.18-3.74 hnnv=978) MONOCYTES ABSOLUTE COUNT (BEAKER) (test 0.96 K/ L 0.24-0.36 kpif=330) EOSINOPHILS ABSOLUTE COUNT (BEAKER) (test 0.31 K/ L 0.04-0.36 nvce=030) BASOPHILS ABSOLUTE COUNT (BEAKER) (test 0.08 K/ L 0.01-0.08 oike=132) IMMATURE GRANULOCYTES-RELATIVE PERCENT (BEAKER) 1 % 0-1 (test fbvx=0577) POCT-LACTIC ACID, [id number] 04:50:00 Test Item Value Reference Range Comments POC-LACTIC ACID, VENOUS 3.0 mmol/L 0.9-1.7 TESTED AT [address] (BEAKER) (test syvu=6505) [facility] [address] POCT-GLUCOSE [id number] 21:00:00 Test Item Value Reference Range Comments POC-GLUCOSE METER (BEAKER) 245 mg/dL 70-110 TESTED AT [place] [id number] [facility] (test gxuf=2259) [facility] [address] MR, BRAIN, WITHOUT [id number] 18:04:00FINAL REPORT MRI brain Comparison: Head CT September [...] abnormal diffusion restriction. Flow-voids are seen in thebasilar and internal carotid arteries as well as in the large posterior dural sinuses. The pineal, sella, and craniocervical junction regions are unremarkable. The visualized orbital contents, paranasal sinuses, skullbase and surrounding soft tissues are unremarkable. . Impressions: Chronic findings as discussed. No specific evidence of acute intracranial abnormality. Signed: Kaylyn Wattseport Verified Date/Time: 10/01/2017 18:04:34 POCT-GLUCOSE [id number] 12:06:00 Test Item Value Reference Range Comments POC-GLUCOSE METER (BEAKER) 168 mg/dL 70-110 TESTED AT [address] (test juxd=4501) [place] [id number] POCT-GLUCOSE [id number] 07:40:00 Test Item Value Reference Range Comments POC-GLUCOSE METER (BEAKER) 207 mg/dL 70-110 TESTED AT [address] (test bdxy=4475) [facility] [address] BASIC METABOLIC [id number] 06:19:00 Test Item Value Reference Range Comments SODIUM (BEAKER) (test 138 meq/L 136-145 gmef=214) POTASSIUM (BEAKER) (test 3.3 meq/L 3.5-5.1 kypr=715) CHLORIDE (BEAKER) (test 99 meq/L 98-107 kpbl=123) CO2 (BEAKER) (test 26 meq/L 22-29 huca=927) BLOOD UREA NITROGEN 39 mg/dL 7-21 (BEAKER) (test xafd=052) CREATININE (BEAKER) (test 7.88 mg/dL 0.57-1.25 wbim=678) GLUCOSE RANDOM (BEAKER) 204 mg/dL 70-105 (test qinj=267) CALCIUM (BEAKER) (test 9.4 mg/dL 8.4-10.2 fryy=290) EGFR (BEAKER) (test 5 mL/min/1.73 sq m ESTIMATED GFR IS NOT zmap=9399) ACCURATE CREATININE CLEARANCE IN PREDICTING GLOMERULAR FILTRATION RATE. ESTIMATED GFR IS NOT APPLICABLE FOR DIALYSIS PATIENTS. [id number] 06:18:00 Test Item Value Reference Range Comments PHOSPHORUS (BEAKER) (test syio=265) 4.1 mg/dL 2.3-4.7 [id number] 06:18:00 Test Item Value Reference Range Comments MAGNESIUM (BEAKER) (test dkrf=294) 2.0 mg/dL 1.6-2.6 CBC W/PLT COUNT & AUTO [id number] 05:42:00 Test Item Value Reference Range Comments WHITE BLOOD CELL COUNT (BEAKER) (test geal=726) 15.1 K/ L 3.5-10.5 RED BLOOD CELL COUNT (BEAKER) (test tjcn=127) 2.80 M/ L 3.93-5.22 HEMOGLOBIN (BEAKER) (test qtot=538) 8.3 GM/DL 11.2-15.7 HEMATOCRIT (BEAKER) (test kbbt=980) 27.7 % 34.1-44.9 MEAN CORPUSCULAR VOLUME (BEAKER) (test ekdg=553) 98.9 fL 79.4-94.8 MEAN CORPUSCULAR HEMOGLOBIN (BEAKER) (test 29.6 pg 25.6-32.2 rnnh=011) MEAN CORPUSCULAR HEMOGLOBIN CONC (BEAKER) (test 30.0 GM/DL 32.2-35.5 shuu=685) RED CELL DISTRIBUTION WIDTH (BEAKER) (test 13.4 % 11.7-14.4 zcoo=207) PLATELET COUNT (BEAKER) (test frmw=699) 300 K/CU MM 150-450 MEAN PLATELET VOLUME (BEAKER) (test anjf=506) 9.8 fL 9.4-12.3 NUCLEATED RED BLOOD CELLS (BEAKER) (test 2 /100 WBC 0-0 pqep=772) NEUTROPHILS RELATIVE PERCENT (BEAKER) (test 79 % tqky=007) LYMPHOCYTES RELATIVE PERCENT (BEAKER) (test 9 % uium=011) MONOCYTES RELATIVE PERCENT (BEAKER) (test 8 % sczr=810) EOSINOPHILS RELATIVE PERCENT (BEAKER) (test 1 % ffmf=873) BASOPHILS RELATIVE PERCENT (BEAKER) (test 1 % csfv=670) NEUTROPHILS ABSOLUTE COUNT (BEAKER) (test 12.01 K/ L 1.56-6.13 ygoa=952) LYMPHOCYTES ABSOLUTE COUNT (BEAKER) (test 1.42 K/ L 1.18-3.74 jmxr=705) MONOCYTES ABSOLUTE COUNT (BEAKER) (test 1.16 K/ L 0.24-0.36 avip=514) EOSINOPHILS ABSOLUTE COUNT (BEAKER) (test 0.20 K/ L 0.04-0.36 bnxk=787) BASOPHILS ABSOLUTE COUNT (BEAKER) (test 0.07 K/ L 0.01-0.08 asfo=547) IMMATURE GRANULOCYTES-RELATIVE PERCENT (BEAKER) 2 % 0-1 (test pigf=7019) BLOOD [id number] 00:00:00 Test Item Value Reference Range Comments CULTURE (BEAKER) (test emus=2603) No growth in 5 days BLOOD [id number] 00:00:00 Test Item Value Reference Range Comments CULTURE (BEAKER) (test vspl=9391) No growth in 5 days POCT-GLUCOSE [id number] 21:39:00 Test Item Value Reference Range Comments POC-GLUCOSE METER (BEAKER) 222 mg/dL 70-110 TESTED AT [address] (test tzla=8717) [place] [address] POCT-GLUCOSE [id number] 17:25:00 Test Item Value Reference Range Comments POC-GLUCOSE METER (BEAKER) 167 mg/dL 70-110 TESTED AT [address] (test shxm=3964) [place] [address] POCT-GLUCOSE [id number] 13:04:00 Test Item Value Reference Range Comments POC-GLUCOSE METER (BEAKER) 192 mg/dL 70-110 TESTED AT [address] (test xpgb=5272) [place] [id number] POCT-GLUCOSE [id number] 12:17:00 Test Item Value Reference Range Comments POC-GLUCOSE METER (BEAKER) 152 mg/dL 70-110 TESTED AT [address] (test qekm=2032) [place] [address] POCT-GLUCOSE [id number] 08:31:00 Test Item Value Reference Range Comments POC-GLUCOSE METER (BEAKER) 206 mg/dL 70-110 TESTED AT [address] (test eqov=8684) [place] [address] BASIC METABOLIC [id number] 05:59:00 Test Item Value Reference Range Comments SODIUM (BEAKER) (test 134 meq/L 136-145 poys=890) POTASSIUM (BEAKER) (test 3.4 meq/L 3.5-5.1 fsxj=796) CHLORIDE (BEAKER) (test 100 meq/L 98-107 kxaf=066) CO2 (BEAKER) (test 20 meq/L 22-29 kbiz=513) BLOOD UREA NITROGEN 37 mg/dL 7-21 (BEAKER) (test mcad=084) CREATININE (BEAKER) (test 7.44 mg/dL 0.57-1.25 gnyp=228) GLUCOSE RANDOM (BEAKER) 236 mg/dL 70-105 (test uuur=232) CALCIUM (BEAKER) (test 9.1 mg/dL 8.4-10.2 ceci=610) EGFR (BEAKER) (test 5 mL/min/1.73 sq m ESTIMATED GFR IS NOT xxrt=8377) ACCURATE CREATININE CLEARANCE IN PREDICTING GLOMERULAR FILTRATION RATE. ESTIMATED GFR IS NOT APPLICABLE FOR DIALYSIS PATIENTS. [id number] 05:57:00 Test Item Value Reference Range Comments PHOSPHORUS (BEAKER) (test atau=440) 3.7 mg/dL 2.3-4.7 [id number] 05:57:00 Test Item Value Reference Range Comments MAGNESIUM (BEAKER) (test lkfg=350) 2.0 mg/dL 1.6-2.6 CBC W/PLT COUNT & AUTO [id number] 05:06:00 Test Item Value Reference Range Comments WHITE BLOOD CELL COUNT (BEAKER) (test bghr=998) 14.3 K/ L 3.5-10.5 RED BLOOD CELL COUNT (BEAKER) (test mvxz=173) 2.85 M/ L 3.93-5.22 HEMOGLOBIN (BEAKER) (test auje=232) 8.4 GM/DL 11.2-15.7 HEMATOCRIT (BEAKER) (test wiva=856) 28.4 % 34.1-44.9 MEAN CORPUSCULAR VOLUME (BEAKER) (test lfxj=119) 99.6 fL 79.4-94.8 MEAN CORPUSCULAR HEMOGLOBIN (BEAKER) (test 29.5 pg 25.6-32.2 dnzf=981) MEAN CORPUSCULAR HEMOGLOBIN CONC (BEAKER) (test 29.6 GM/DL 32.2-35.5 ncct=877) RED CELL DISTRIBUTION WIDTH (BEAKER) (test 13.2 % 11.7-14.4 xphz=964) PLATELET COUNT (BEAKER) (test nlnr=524) 341 K/CU MM 150-450 MEAN PLATELET VOLUME (BEAKER) (test ibek=358) 9.7 fL 9.4-12.3 NUCLEATED RED BLOOD CELLS (BEAKER) (test 1 /100 WBC 0-0 sjeo=330) NEUTROPHILS RELATIVE PERCENT (BEAKER) (test 75 % ufut=984) LYMPHOCYTES RELATIVE PERCENT (BEAKER) (test 13 % zgtr=988) MONOCYTES RELATIVE PERCENT (BEAKER) (test 8 % hmdv=240) EOSINOPHILS RELATIVE PERCENT (BEAKER) (test 2 % avbd=265) BASOPHILS RELATIVE PERCENT (BEAKER) (test 1 % bzlc=079) NEUTROPHILS ABSOLUTE COUNT (BEAKER) (test 10.72 K/ L 1.56-6.13 frfh=710) LYMPHOCYTES ABSOLUTE COUNT (BEAKER) (test 1.85 K/ L 1.18-3.74 kyzw=805) MONOCYTES ABSOLUTE COUNT (BEAKER) (test 1.07 K/ L 0.24-0.36 pbsj=396) EOSINOPHILS ABSOLUTE COUNT (BEAKER) (test 0.21 K/ L 0.04-0.36 advg=088) BASOPHILS ABSOLUTE COUNT (BEAKER) (test 0.08 K/ L 0.01-0.08 jhag=408) IMMATURE GRANULOCYTES-RELATIVE PERCENT (BEAKER) 3 % 0-1 (test tuzk=6383) POCT-GLUCOSE [id number] 20:55:00 Test Item Value Reference Range Comments POC-GLUCOSE METER (BEAKER) 186 mg/dL 70-110 TESTED AT [address] (test wxzi=7587) [facility] [address] POCT-GLUCOSE [id number] 17:30:00 Test Item Value Reference Range Comments POC-GLUCOSE METER (BEAKER) 135 mg/dL 70-110 TESTED AT [address] (test jknc=5458) [facility] [address] LACTIC ACID, VENOUS, WHOLE [id number] 15:02:00 Test Item Value Reference Range Comments LACTATE BLOOD VENOUS (2) (BEAKER) (test 2.1 mmol/L 0.5-2.2 dqzw=8992) Effective 07/04/2015: Units/Reference Range ChangeNew: 0.5-2.2 mmol/L Previous: 5 -20 mg/dLU/S, ABDOMINAL, [id number] 13:53:00Reason for exam:->delirium , patient on peritoneal dialysis and ? infection. Diagnosis onlyFINAL REPORT Limited abdominal ultrasound Clinical History: Delirium Technique: Limited abdominal ultrasound is performed in all four quadrants to assess for presence of ascitesin anticipation of paracentesis. No significant ascites identified. Impression: No significant ascites. Paracentesis was not performed. Signed: Niko Osullivan MDReport Verified Date/Time: 09/29/2017 13:53: 14 Reading Location: [facility] [id number] Ultrasound Reading Room BASI METABOLIC [id number] 07:43:00 Test Item Value Reference Range Comments SODIUM (BEAKER) (test 136 meq/L 136-145 iwoa=393) POTASSIUM (BEAKER) (test 3.5 meq/L 3.5-5.1 pqcn=192) CHLORIDE (BEAKER) (test 98 meq/L 98-107 nmmm=670) CO2 (BEAKER) (test 22 meq/L 22-29 znav=456) BLOOD UREA NITROGEN 41 mg/dL 7-21 (BEAKER) (test kszi=749) CREATININE (BEAKER) (test 7.35 mg/dL 0.57-1.25 eucs=168) GLUCOSE RANDOM (BEAKER) 106 mg/dL 70-105 (test yepq=445) CALCIUM (BEAKER) (test 9.2 mg/dL 8.4-10.2 ekvf=209) EGFR (BEAKER) (test 5 mL/min/1.73 sq m ESTIMATED GFR IS NOT pram=7870) ACCURATE CREATININE CLEARANCE IN PREDICTING GLOMERULAR FILTRATION RATE. ESTIMATED GFR IS NOT APPLICABLE FOR DIALYSIS PATIENTS. POCT-GLUCOSE [id number] 07:41:00 Test Item Value Reference Range Comments POC-GLUCOSE METER (BEAKER) 127 mg/dL 70-110 TESTED AT [address] (test pwfq=1334) [facility] [address] [id number] 07:14:00 Test Item Value Reference Range Comments PHOSPHORUS (BEAKER) (test smod=290) 3.9 mg/dL 2.3-4.7 [id number] 07:14:00 Test Item Value Reference Range Comments MAGNESIUM (BEAKER) (test lbje=876) 2.0 mg/dL 1.6-2.6 CBC W/PLT COUNT & AUTO [id number] 06:32:00 Test Item Value Reference Range Comments WHITE BLOOD CELL COUNT (BEAKER) (test dshq=080) 17.4 K/ L 3.5-10.5 RED BLOOD CELL COUNT (BEAKER) (test zhjb=720) 2.89 M/ L 3.93-5.22 HEMOGLOBIN (BEAKER) (test vduv=020) 8.5 GM/DL 11.2-15.7 HEMATOCRIT (BEAKER) (test vxiw=538) 28.7 % 34.1-44.9 MEAN CORPUSCULAR VOLUME (BEAKER) (test rgmo=779) 99.3 fL 79.4-94.8 MEAN CORPUSCULAR HEMOGLOBIN (BEAKER) (test 29.4 pg 25.6-32.2 ufat=107) MEAN CORPUSCULAR HEMOGLOBIN CONC (BEAKER) (test 29.6 GM/DL 32.2-35.5 xzho=573) RED CELL DISTRIBUTION WIDTH (BEAKER) (test 12.9 % 11.7-14.4 dzps=934) PLATELET COUNT (BEAKER) (test ewvz=436) 369 K/CU MM 150-450 MEAN PLATELET VOLUME (BEAKER) (test hewa=884) 9.8 fL 9.4-12.3 NUCLEATED RED BLOOD CELLS (BEAKER) (test 0 /100 WBC 0-0 egwr=390) NEUTROPHILS RELATIVE PERCENT (BEAKER) (test 78 % swmt=094) LYMPHOCYTES RELATIVE PERCENT (BEAKER) (test 12 % bapb=310) MONOCYTES RELATIVE PERCENT (BEAKER) (test 7 % dckk=086) EOSINOPHILS RELATIVE PERCENT (BEAKER) (test 1 % zeyf=832) BASOPHILS RELATIVE PERCENT (BEAKER) (test 1 % holh=940) NEUTROPHILS ABSOLUTE COUNT (BEAKER) (test 13.62 K/ L 1.56-6.13 ultl=869) LYMPHOCYTES ABSOLUTE COUNT (BEAKER) (test 2.07 K/ L 1.18-3.74 zscp=044) MONOCYTES ABSOLUTE COUNT (BEAKER) (test 1.26 K/ L 0.24-0.36 ybkh=735) EOSINOPHILS ABSOLUTE COUNT (BEAKER) (test 0.12 K/ L 0.04-0.36 czkt=815) BASOPHILS ABSOLUTE COUNT (BEAKER) (test 0.08 K/ L 0.01-0.08 xybw=943) IMMATURE GRANULOCYTES-RELATIVE PERCENT (BEAKER) 1 % 0-1 (test jdvb=1636) POCT-GLUCOSE [id number] 20:33:00 Test Item Value Reference Range Comments POC-GLUCOSE METER (BEAKER) 306 mg/dL 70-110 TESTED AT [address] (test kpzt=5625) [place] [address] POCT-GLUCOSE [id number] 17:21:00 Test Item Value Reference Range Comments POC-GLUCOSE METER (BEAKER) 125 mg/dL 70-110 TESTED AT [address] (test csry=5080) [place] [address] [id number] 15:10:00 Test Item Value Reference Range Comments PROTIME (BEAKER) (test pyxj=099) 15.3 seconds 11.7-14.7 INR (BEAKER) (test teze=250) 1.2 <=5.9 PARTIAL THROMBOPLASTIN TIME (BEAKER) (test 26.7 seconds 22.5-36.0 sjah=028) RECOMMENDED COUMADIN/WARFARIN INR THERAPY RANGESSTANDARD DOSE: 2.0 - 3.0 Includes: PROPHYLAXIS forvenous thrombosis, systemic embolization; TREATMENT for venous thrombosis and/or pulmonary embolus.HIGH RISK: Target INR is 2.5-3.5 for patients with mechanical heart valves.POCT-GLUCOSE [id number] 12:35:00 Test Item Value Reference Range Comments POC-GLUCOSE METER (BEAKER) 170 mg/dL 70-110 TESTED AT [address] (test xabb=0049) [place] [address] BASIC METABOLIC [id number] 08:38:00 Test Item Value Reference Range Comments SODIUM (BEAKER) (test 132 meq/L 136-145 hoqh=476) POTASSIUM (BEAKER) (test 3.6 meq/L 3.5-5.1 xxmv=064) CHLORIDE (BEAKER) (test 97 meq/L 98-107 nakh=893) CO2 (BEAKER) (test 22 meq/L 22-29 ewag=723) BLOOD UREA NITROGEN 34 mg/dL 7-21 (BEAKER) (test aheg=329) CREATININE (BEAKER) (test 6.33 mg/dL 0.57-1.25 zvtr=381) GLUCOSE RANDOM (BEAKER) 133 mg/dL 70-105 (test koqi=986) CALCIUM (BEAKER) (test 9.1 mg/dL 8.4-10.2 tyxv=009) EGFR (BEAKER) (test 6 mL/min/1.73 sq m ESTIMATED GFR IS NOT sdft=1688) ACCURATE CREATININE CLEARANCE IN PREDICTING GLOMERULAR FILTRATION RATE. ESTIMATED GFR IS NOT APPLICABLE FOR DIALYSIS PATIENTS. VANCOMYCIN LEVEL, [id number] 08:25:00 Test Item Value Reference Range Comments VANCOMYCIN RANDOM (BEAKER) (test gsfa=476) 23.7 ug/mL Reference Range: No [id number] 08:07:00 Test Item Value Reference Range Comments PHOSPHORUS (BEAKER) (test lzkj=005) 3.2 mg/dL 2.3-4.7 [id number] 08:07:00 Test Item Value Reference Range Comments MAGNESIUM (BEAKER) (test dotm=615) 1.9 mg/dL 1.6-2.6 POCT-GLUCOSE [id number] 08:00:00 Test Item Value Reference Range Comments POC-GLUCOSE METER (BEAKER) 113 mg/dL 70-110 TESTED AT [address] (test zsil=2254) [facility] [address] CBC W/PLT COUNT & AUTO [id number] 06:25:00 Test Item Value Reference Range Comments WHITE BLOOD CELL COUNT (BEAKER) (test nhbi=181) 12.9 K/ L 3.5-10.5 RED BLOOD CELL COUNT (BEAKER) (test txbp=665) 2.87 M/ L 3.93-5.22 HEMOGLOBIN (BEAKER) (test lxcy=929) 8.6 GM/DL 11.2-15.7 HEMATOCRIT (BEAKER) (test iejx=569) 29.4 % 34.1-44.9 MEAN CORPUSCULAR VOLUME (BEAKER) (test vcgf=108) 102.4 fL 79.4-94.8 MEAN CORPUSCULAR HEMOGLOBIN (BEAKER) (test 30.0 pg 25.6-32.2 uehe=224) MEAN CORPUSCULAR HEMOGLOBIN CONC (BEAKER) (test 29.3 GM/DL 32.2-35.5 pkrg=274) RED CELL DISTRIBUTION WIDTH (BEAKER) (test 13.2 % 11.7-14.4 mbxb=157) PLATELET COUNT (BEAKER) (test oaia=957) 228 K/CU MM 150-450 MEAN PLATELET VOLUME (BEAKER) (test wsrw=725) 10.1 fL 9.4-12.3 NUCLEATED RED BLOOD CELLS (BEAKER) (test 0 /100 WBC 0-0 exvm=084) NEUTROPHILS RELATIVE PERCENT (BEAKER) (test 72 % dpjt=044) LYMPHOCYTES RELATIVE PERCENT (BEAKER) (test 16 % xpig=327) MONOCYTES RELATIVE PERCENT (BEAKER) (test 8 % rgxm=830) EOSINOPHILS RELATIVE PERCENT (BEAKER) (test 2 % vblt=166) BASOPHILS RELATIVE PERCENT (BEAKER) (test 1 % xbjs=115) NEUTROPHILS ABSOLUTE COUNT (BEAKER) (test 9.32 K/ L 1.56-6.13 ptnt=397) LYMPHOCYTES ABSOLUTE COUNT (BEAKER) (test 2.12 K/ L 1.18-3.74 ywdv=648) MONOCYTES ABSOLUTE COUNT (BEAKER) (test 1.06 K/ L 0.24-0.36 gtxb=062) EOSINOPHILS ABSOLUTE COUNT (BEAKER) (test 0.25 K/ L 0.04-0.36 gtmi=934) BASOPHILS ABSOLUTE COUNT (BEAKER) (test 0.08 K/ L 0.01-0.08 srpj=074) IMMATURE GRANULOCYTES-RELATIVE PERCENT (BEAKER) 1 % 0-1 (test zwdd=6003) GRAM [id number] 23:04:00 Test Item Value Reference Range Comments GRAM STAIN RESULT (BEAKER) (test <1+ WBCs dvue=0433) GRAM STAIN RESULT (BEAKER) (test No organisms seen jbhe=13460) POCT-GLUCOSE [id number] 21:53:00 Test Item Value Reference Range Comments POC-GLUCOSE METER (BEAKER) 212 mg/dL 70-110 TESTED AT [address] (test zkpa=2702) [facility] [address] POCT-GLUCOSE [id number] 18:10:00 Test Item Value Reference Range Comments POC-GLUCOSE METER (BEAKER) 121 mg/dL 70-110 TESTED AT [address] (test ammq=2405) [facility] [address] POCT-GLUCOSE [id number] 18:09:00 Test Item Value Reference Range Comments POC-GLUCOSE METER (BEAKER) 112 mg/dL 70-110 TESTED AT [address] (test monj=2103) [facility] [address] POCT-GLUCOSE [id number] 18:05:00 Test Item Value Reference Range Comments POC-GLUCOSE METER (BEAKER) 157 mg/dL 70-110 TESTED AT [address] (test fawn=1271) [facility] [address] CBC W/PLT COUNT & AUTO [id number] 10:02:00 Test Item Value Reference Range Comments WHITE BLOOD CELL COUNT (BEAKER) (test yatg=745) 12.6 K/ L 3.5-10.5 RED BLOOD CELL COUNT (BEAKER) (test xfqh=290) 2.72 M/ L 3.93-5.22 HEMOGLOBIN (BEAKER) (test gsqr=765) 8.1 GM/DL 11.2-15.7 HEMATOCRIT (BEAKER) (test hrps=472) 26.3 % 34.1-44.9 MEAN CORPUSCULAR VOLUME (BEAKER) (test twts=640) 96.7 fL 79.4-94.8 MEAN CORPUSCULAR HEMOGLOBIN (BEAKER) (test 29.8 pg 25.6-32.2 gcgt=066) MEAN CORPUSCULAR HEMOGLOBIN CONC (BEAKER) (test 30.8 GM/DL 32.2-35.5 qnbp=185) RED CELL DISTRIBUTION WIDTH (BEAKER) (test 13.0 % 11.7-14.4 srru=339) PLATELET COUNT (BEAKER) (test mlel=073) 251 K/CU MM 150-450 MEAN PLATELET VOLUME (BEAKER) (test ibku=930) 9.3 fL 9.4-12.3 NUCLEATED RED BLOOD CELLS (BEAKER) (test 0 /100 WBC 0-0 xvgz=042) NEUTROPHILS RELATIVE PERCENT (BEAKER) (test 74 % nvlc=596) LYMPHOCYTES RELATIVE PERCENT (BEAKER) (test 15 % mlcr=480) MONOCYTES RELATIVE PERCENT (BEAKER) (test 8 % atpk=977) EOSINOPHILS RELATIVE PERCENT (BEAKER) (test 3 % lzsv=864) BASOPHILS RELATIVE PERCENT (BEAKER) (test 1 % ndxo=456) NEUTROPHILS ABSOLUTE COUNT (BEAKER) (test 9.30 K/ L 1.56-6.13 yuzb=728) LYMPHOCYTES ABSOLUTE COUNT (BEAKER) (test 1.87 K/ L 1.18-3.74 rxqn=292) MONOCYTES ABSOLUTE COUNT (BEAKER) (test 0.99 K/ L 0.24-0.36 wgkb=687) EOSINOPHILS ABSOLUTE COUNT (BEAKER) (test 0.33 K/ L 0.04-0.36 xdys=903) BASOPHILS ABSOLUTE COUNT (BEAKER) (test 0.06 K/ L 0.01-0.08 oemo=277) IMMATURE GRANULOCYTES-RELATIVE PERCENT (BEAKER) 1 % 0-1 (test jljc=6619) BASIC METABOLIC [id number] 07:07:00 Test Item Value Reference Range Comments SODIUM (BEAKER) (test 135 meq/L 136-145 lpkr=053) POTASSIUM (BEAKER) (test 3.2 meq/L 3.5-5.1 glpy=828) CHLORIDE (BEAKER) (test 99 meq/L 98-107 rnwc=170) CO2 (BEAKER) (test 23 meq/L 22-29 kwiy=513) BLOOD UREA NITROGEN 39 mg/dL 7-21 (BEAKER) (test xtxp=867) CREATININE (BEAKER) (test 6.73 mg/dL 0.57-1.25 bliq=037) GLUCOSE RANDOM (BEAKER) 125 mg/dL 70-105 (test bjko=295) CALCIUM (BEAKER) (test 8.6 mg/dL 8.4-10.2 pnsv=604) EGFR (BEAKER) (test 6 mL/min/1.73 sq m ESTIMATED GFR IS NOT nntv=5715) ACCURATE CREATININE CLEARANCE IN PREDICTING GLOMERULAR FILTRATION RATE. ESTIMATED GFR IS NOT APPLICABLE FOR DIALYSIS PATIENTS. [id number] 07:05:00 Test Item Value Reference Range Comments PHOSPHORUS (BEAKER) (test ouut=093) 3.5 mg/dL 2.3-4.7 [id number] 07:05:00 Test Item Value Reference Range Comments MAGNESIUM (BEAKER) (test xjiu=947) 2.0 mg/dL 1.6-2.6 BODY FLUID CELL COUNT WITH [id number] 21:57:00 Test Item Value Reference Range Comments APPEARANCE FLUID (BEAKER) (test sfxo=522) Clear Clear COLOR FLUID (BEAKER) (test fmwg=076) Colorless Colorless, Straw RBC FLUID (BEAKER) (test xjpr=918) 1 /cu mm <=1 ADJUSTED WBC FLUID (BEAKER) (test niyt=7654) 5 /cu mm <=5 LINING CELLS (BEAKER) (test vitw=9008) 0 /cu mm <=1 NEUTROPHILS FLUID (BEAKER) (test hyca=0284) 10 % LYMPHS FLUID (BEAKER) (test zanu=576) 40 % MONO/MACROPHAGE FLUID (BEAKER) (test cgjq=907) 50 % EOSINOPHILS FLUID (BEAKER) (test maus=233) 0 % BASO FLUID (BEAKER) (test folg=129) 0 % CONTAINER BODY FLUID (BEAKER) (test vzax=8527) EDTA Tube POCT-GLUCOSE [id number] 21:35:00 Test Item Value Reference Range Comments POC-GLUCOSE METER (BEAKER) 191 mg/dL 70-110 TESTED AT [address] (test woek=6322) [place] [address] POCT-GLUCOSE [id number] 17:13:00 Test Item Value Reference Range Comments POC-GLUCOSE METER (BEAKER) 146 mg/dL 70-110 TESTED AT [address] (test qlly=4482) [place] [id number] POCT-GLUCOSE [id number] 16:35:00 Test Item Value Reference Range Comments POC-GLUCOSE METER (BEAKER) 147 mg/dL 70-110 TESTED AT [address] (test vskx=0520) [place] [id number] POCT-GLUCOSE [id number] 12:18:00 Test Item Value Reference Range Comments POC-GLUCOSE METER (BEAKER) 144 mg/dL 70-110 TESTED AT [address] (test erec=8537) [place] [address] [id number] 11:24:00 Test Item Value Reference Range Comments PREALBUMIN (BEAKER) (test pzyc=661) 33 mg/dL 14-45 POCT-GLUCOSE [id number] 07:44:00 Test Item Value Reference Range Comments POC-GLUCOSE METER (BEAKER) 153 mg/dL 70-110 TESTED AT [facility] [address] (test eome=1018) [facility] [address] BASIC METABOLIC [id number] 06:26:00 Test Item Value Reference Range Comments SODIUM (BEAKER) (test 135 meq/L 136-145 tlfm=035) POTASSIUM (BEAKER) (test 3.3 meq/L 3.5-5.1 opji=465) CHLORIDE (BEAKER) (test 97 meq/L 98-107 lnuc=075) CO2 (BEAKER) (test 22 meq/L 22-29 ldby=823) BLOOD UREA NITROGEN 39 mg/dL 7-21 (BEAKER) (test ijrc=601) CREATININE (BEAKER) (test 6.56 mg/dL 0.57-1.25 jske=094) GLUCOSE RANDOM (BEAKER) 160 mg/dL 70-105 (test tasb=513) CALCIUM (BEAKER) (test 8.9 mg/dL 8.4-10.2 eywy=185) EGFR (BEAKER) (test 6 mL/min/1.73 sq m ESTIMATED GFR IS NOT tcwd=0865) ACCURATE CREATININE CLEARANCE IN PREDICTING GLOMERULAR FILTRATION RATE. ESTIMATED GFR IS NOT APPLICABLE FOR DIALYSIS PATIENTS. [id number] 06:24:00 Test Item Value Reference Range Comments PHOSPHORUS (BEAKER) (test dzrm=395) 4.3 mg/dL 2.3-4.7 [id number] 06:24:00 Test Item Value Reference Range Comments MAGNESIUM (BEAKER) (test dobj=185) 1.9 mg/dL 1.6-2.6 LACTIC ACID, VENOUS, WHOLE [id number] 06:02:00 Test Item Value Reference Range Comments LACTATE BLOOD VENOUS (2) (BEAKER) (test 2.5 mmol/L 0.5-2.2 vpwe=9579) Effective 07/04/2015: Units/Reference Range ChangeNew: 0.5-2.2 mmol/L Previous: 5 -20 mg/dLCBC W/PLT COUNT & AUTO [id number] 05:56:00 Test Item Value Reference Range Comments WHITE BLOOD CELL COUNT (BEAKER) (test rgyl=112) 11.1 K/ L 3.5-10.5 RED BLOOD CELL COUNT (BEAKER) (test sdxp=394) 2.98 M/ L 3.93-5.22 HEMOGLOBIN (BEAKER) (test jkzg=422) 8.9 GM/DL 11.2-15.7 HEMATOCRIT (BEAKER) (test hwpq=912) 28.9 % 34.1-44.9 MEAN CORPUSCULAR VOLUME (BEAKER) (test vfvn=162) 97.0 fL 79.4-94.8 MEAN CORPUSCULAR HEMOGLOBIN (BEAKER) (test 29.9 pg 25.6-32.2 ftcv=369) MEAN CORPUSCULAR HEMOGLOBIN CONC (BEAKER) (test 30.8 GM/DL 32.2-35.5 bbds=323) RED CELL DISTRIBUTION WIDTH (BEAKER) (test 13.1 % 11.7-14.4 lhsu=681) PLATELET COUNT (BEAKER) (test pwjg=316) 265 K/CU MM 150-450 MEAN PLATELET VOLUME (BEAKER) (test hhnk=161) 9.4 fL 9.4-12.3 NUCLEATED RED BLOOD CELLS (BEAKER) (test 1 /100 WBC 0-0 ktjc=406) NEUTROPHILS RELATIVE PERCENT (BEAKER) (test 72 % kleq=797) LYMPHOCYTES RELATIVE PERCENT (BEAKER) (test 17 % wgef=843) MONOCYTES RELATIVE PERCENT (BEAKER) (test 8 % wbmn=942) EOSINOPHILS RELATIVE PERCENT (BEAKER) (test 2 % tnwo=715) BASOPHILS RELATIVE PERCENT (BEAKER) (test 1 % uego=229) NEUTROPHILS ABSOLUTE COUNT (BEAKER) (test 7.93 K/ L 1.56-6.13 osks=921) LYMPHOCYTES ABSOLUTE COUNT (BEAKER) (test 1.83 K/ L 1.18-3.74 qwgo=959) MONOCYTES ABSOLUTE COUNT (BEAKER) (test 0.91 K/ L 0.24-0.36 nnqb=070) EOSINOPHILS ABSOLUTE COUNT (BEAKER) (test 0.27 K/ L 0.04-0.36 hiut=523) BASOPHILS ABSOLUTE COUNT (BEAKER) (test 0.06 K/ L 0.01-0.08 nhxg=990) IMMATURE GRANULOCYTES-RELATIVE PERCENT (BEAKER) 1 % 0-1 (test wtgc=2629) [id number] 05:55:00 Test Item Value Reference Range Comments PROTIME (BEAKER) (test gfep=766) 16.0 seconds 11.7-14.7 INR (BEAKER) (test vqha=513) 1.3 <=5.9 PARTIAL THROMBOPLASTIN TIME (BEAKER) (test 29.3 seconds 22.5-36.0 prsg=258) RECOMMENDED COUMADIN/WARFARIN INR THERAPY RANGESSTANDARD DOSE: 2.0 - 3.0 Includes: PROPHYLAXIS forvenous thrombosis, systemic embolization; TREATMENT for venous thrombosis and/or pulmonary embolus.HIGH RISK: Target INR is 2.5-3.5 for patients with mechanical heart valves.COMPREHENSIVE METABOLIC [id number] 23:31:00 Test Item Value Reference Range Comments TOTAL PROTEIN (BEAKER) 6.2 gm/dL 6.0-8.3 (test ckpu=701) ALBUMIN (BEAKER) (test 2.6 g/dL 3.5-5.0 sqdb=6537) ALKALINE PHOSPHATASE 105 U/L 40-150 (BEAKER) (test fkaa=716) BILIRUBIN TOTAL (BEAKER) 0.5 mg/dL 0.2-1.2 (test vdnr=385) SODIUM (BEAKER) (test 133 meq/L 136-145 gfki=881) POTASSIUM (BEAKER) (test 3.6 meq/L 3.5-5.1 dvmu=795) CHLORIDE (BEAKER) (test 95 meq/L 98-107 cxeu=202) CO2 (BEAKER) (test 23 meq/L 22-29 hibh=892) BLOOD UREA NITROGEN 46 mg/dL 7-21 (BEAKER) (test mulz=060) CREATININE (BEAKER) (test 7.11 mg/dL 0.57-1.25 qdmu=399) GLUCOSE RANDOM (BEAKER) 150 mg/dL 70-105 (test kauv=173) CALCIUM (BEAKER) (test 8.6 mg/dL 8.4-10.2 pcub=165) AST (SGOT) (BEAKER) (test 6 U/L 5-34 kemb=809) ALT (SGPT) (BEAKER) (test < U/L 6-55 snqw=056) EGFR (BEAKER) (test 6 mL/min/1.73 sq m ESTIMATED GFR IS NOT mnhn=8425) ACCURATE CREATININE CLEARANCE IN PREDICTING GLOMERULAR FILTRATION RATE. ESTIMATED GFR IS NOT APPLICABLE FOR DIALYSIS PATIENTS. TROPONIN [id number] 23:17:00 Test Item Value Reference Range Comments TROPONIN I (BEAKER) (test vska=637) 0.10 ng/mL 0.00-0.03 Troponin I (TnI) levels must be interpreted [...] failure, acidosis, acute neurological disease, and persistent tachyarrhythmia.CBC W/PLT COUNT & AUTO [id number] 23:05:00 Test Item Value Reference Range Comments WHITE BLOOD CELL COUNT (BEAKER) (test gugi=330) 12.1 K/ L 3.5-10.5 RED BLOOD CELL COUNT (BEAKER) (test hcrr=971) 2.93 M/ L 3.93-5.22 HEMOGLOBIN (BEAKER) (test qgrp=373) 8.8 GM/DL 11.2-15.7 HEMATOCRIT (BEAKER) (test wdpn=832) 28.3 % 34.1-44.9 MEAN CORPUSCULAR VOLUME (BEAKER) (test gfqe=250) 96.6 fL 79.4-94.8 MEAN CORPUSCULAR HEMOGLOBIN (BEAKER) (test 30.0 pg 25.6-32.2 rbfs=081) MEAN CORPUSCULAR HEMOGLOBIN CONC (BEAKER) (test 31.1 GM/DL 32.2-35.5 lehb=064) RED CELL DISTRIBUTION WIDTH (BEAKER) (test 13.0 % 11.7-14.4 ktqn=328) PLATELET COUNT (BEAKER) (test pgpb=728) 269 K/CU MM 150-450 MEAN PLATELET VOLUME (BEAKER) (test mpef=003) 9.3 fL 9.4-12.3 NUCLEATED RED BLOOD CELLS (BEAKER) (test 1 /100 WBC 0-0 fyno=836) NEUTROPHILS RELATIVE PERCENT (BEAKER) (test 73 % lfcf=127) LYMPHOCYTES RELATIVE PERCENT (BEAKER) (test 18 % oxap=834) MONOCYTES RELATIVE PERCENT (BEAKER) (test 7 % clzy=312) EOSINOPHILS RELATIVE PERCENT (BEAKER) (test 1 % qayx=937) BASOPHILS RELATIVE PERCENT (BEAKER) (test 0 % ekmh=592) NEUTROPHILS ABSOLUTE COUNT (BEAKER) (test 8.75 K/ L 1.56-6.13 eqay=358) LYMPHOCYTES ABSOLUTE COUNT (BEAKER) (test 2.13 K/ L 1.18-3.74 edzn=194) MONOCYTES ABSOLUTE COUNT (BEAKER) (test 0.87 K/ L 0.24-0.36 ducm=076) EOSINOPHILS ABSOLUTE COUNT (BEAKER) (test 0.17 K/ L 0.04-0.36 dgtd=137) BASOPHILS ABSOLUTE COUNT (BEAKER) (test 0.05 K/ L 0.01-0.08 fmny=414) IMMATURE GRANULOCYTES-RELATIVE PERCENT (BEAKER) 1 % 0-1 (test iwhf=8922) LACTIC ACID, VENOUS, WHOLE [id number] 23:05:00 Test Item Value Reference Range Comments LACTATE BLOOD VENOUS (2) 3.3 mmol/L 0.5-2.2 Specimen slightly hemolyzed (BEAKER) (test tpqp=2497) Effective 07/04/2015: Units/Reference Range ChangeNew: 0.5-2.2 mmol/L Previous: 5 -20 mg/dLPOCT-GLUCOSE [id number] 21:47:00 Test Item Value Reference Range Comments POC-GLUCOSE METER (BEAKER) 183 mg/dL 70-110 TESTED AT [facility] [address] [facility] (test oxjd=8605) [facility] [address] POCT-GLUCOSE [id number] 16:41:00 Test Item Value Reference Range Comments POC-GLUCOSE METER (BEAKER) 126 mg/dL 70-110 TESTED AT [facility] [address] [facility] (test udpj=0577) [facility] [address] HIV-1 ANTIGEN WITH HIV-1/2 [id number] 16:28:00 Test Item Value Reference Range Comments HIV-1 ANTIGEN WITH HIV 1\\T\\2 ANTIBODY (2) Nonreactive Nonreactive (BEAKER) (test kzxc=4632) Can draw at the time of the next set of labsRAD, CHEST, 1 VIEW, NON [id number] 16:27:00Reason for exam:->r/o PNAShould this be performed at the bedside?- >YesFINAL REPORT TECHNIQUE: Frontal chest radiograph dated 09/25/2017. CLINICAL HISTORY: Rule out pneumonia COMPARISON STUDY: None IMPRESSION: No focal consolidation. No pleural effusion or pneumothorax. Cardiomediastinal silhouette is normal in size. No pulmonary edema. No fracturedegenerative changes are seen in the spine. Bones are osteopenic. Signed : Adeline Carlos Verified Date/Time: 09/25/2017 16:27:40 Reading Location: [facility] Radiology Reading Room POCT-GLUCOSE [id number] 14:39:00 Test Item Value Reference Range Comments POC-GLUCOSE METER (BEAKER) 133 mg/dL 70-110 TESTED AT [address] (test pxsg=1580) [place] [id number] POCT-GLUCOSE [id number] 11:38:00 Test Item Value Reference Range Comments POC-GLUCOSE METER (BEAKER) 113 mg/dL 70-110 TESTED AT [address] (test dgxi=9080) [facility] [address] POCT-GLUCOSE [id number] 08:06:00 Test Item Value Reference Range Comments POC-GLUCOSE METER (BEAKER) 203 mg/dL 70-110 TESTED AT [address] (test mfjm=2489) [facility] [address] BASIC METABOLIC [id number] 03:48:00 Test Item Value Reference Range Comments SODIUM (BEAKER) (test 133 meq/L 136-145 eqgy=758) POTASSIUM (BEAKER) (test 3.5 meq/L 3.5-5.1 znjb=424) CHLORIDE (BEAKER) (test 96 meq/L 98-107 xcak=738) CO2 (BEAKER) (test 22 meq/L 22-29 faqf=640) BLOOD UREA NITROGEN 40 mg/dL 7-21 (BEAKER) (test xtfu=100) CREATININE (BEAKER) (test 6.39 mg/dL 0.57-1.25 trjj=945) GLUCOSE RANDOM (BEAKER) 183 mg/dL 70-105 (test ogwu=066) CALCIUM (BEAKER) (test 8.8 mg/dL 8.4-10.2 xjza=875) EGFR (BEAKER) (test 6 mL/min/1.73 sq m ESTIMATED GFR IS NOT znaj=8841) ACCURATE CREATININE CLEARANCE IN PREDICTING GLOMERULAR FILTRATION RATE. ESTIMATED GFR IS NOT APPLICABLE FOR DIALYSIS PATIENTS. [id number] 03:46:00 Test Item Value Reference Range Comments PHOSPHORUS (BEAKER) (test jmud=628) 4.8 mg/dL 2.3-4.7 [id number] 03:46:00 Test Item Value Reference Range Comments MAGNESIUM (BEAKER) (test lgbe=415) 2.0 mg/dL 1.6-2.6 CBC W/PLT COUNT & AUTO [id number] 03:25:00 Test Item Value Reference Range Comments WHITE BLOOD CELL COUNT (BEAKER) (test dzza=031) 11.8 K/ L 3.5-10.5 RED BLOOD CELL COUNT (BEAKER) (test cvno=655) 3.18 M/ L 3.93-5.22 HEMOGLOBIN (BEAKER) (test vbdg=525) 9.3 GM/DL 11.2-15.7 HEMATOCRIT (BEAKER) (test scpl=977) 30.4 % 34.1-44.9 MEAN CORPUSCULAR VOLUME (BEAKER) (test qlap=263) 95.6 fL 79.4-94.8 MEAN CORPUSCULAR HEMOGLOBIN (BEAKER) (test 29.2 pg 25.6-32.2 cjyu=302) MEAN CORPUSCULAR HEMOGLOBIN CONC (BEAKER) (test 30.6 GM/DL 32.2-35.5 zmxh=181) RED CELL DISTRIBUTION WIDTH (BEAKER) (test 12.8 % 11.7-14.4 zgot=476) PLATELET COUNT (BEAKER) (test dsyh=772) 334 K/CU MM 150-450 MEAN PLATELET VOLUME (BEAKER) (test jiyj=288) 9.0 fL 9.4-12.3 NUCLEATED RED BLOOD CELLS (BEAKER) (test 2 /100 WBC 0-0 hcmp=856) NEUTROPHILS RELATIVE PERCENT (BEAKER) (test 81 % eidj=148) LYMPHOCYTES RELATIVE PERCENT (BEAKER) (test 11 % ottf=448) MONOCYTES RELATIVE PERCENT (BEAKER) (test 7 % bbsb=062) EOSINOPHILS RELATIVE PERCENT (BEAKER) (test 1 % laxz=936) BASOPHILS RELATIVE PERCENT (BEAKER) (test 0 % ebus=132) NEUTROPHILS ABSOLUTE COUNT (BEAKER) (test 9.54 K/ L 1.56-6.13 xova=240) LYMPHOCYTES ABSOLUTE COUNT (BEAKER) (test 1.27 K/ L 1.18-3.74 jrtt=130) MONOCYTES ABSOLUTE COUNT (BEAKER) (test 0.83 K/ L 0.24-0.36 fuqe=271) EOSINOPHILS ABSOLUTE COUNT (BEAKER) (test 0.08 K/ L 0.04-0.36 ncnl=435) BASOPHILS ABSOLUTE COUNT (BEAKER) (test 0.03 K/ L 0.01-0.08 hpga=098) IMMATURE GRANULOCYTES-RELATIVE PERCENT (BEAKER) 1 % 0-1 (test jjku=7275) POCT-GLUCOSE [id number] 20:54:00 Test Item Value Reference Range Comments POC-GLUCOSE METER (BEAKER) 291 mg/dL 70-110 TESTED AT [address] (test xvmm=9209) [place] [address] POCT-GLUCOSE [id number] 17:22:00 Test Item Value Reference Range Comments POC-GLUCOSE METER (BEAKER) 91 mg/dL 70-110 TESTED AT [address] (test fitg=8429) [place] [address] POCT-GLUCOSE [id number] 12:14:00 Test Item Value Reference Range Comments POC-GLUCOSE METER (BEAKER) 112 mg/dL 70-110 TESTED AT [address] (test wszk=0711) [place] [address] POCT-GLUCOSE [id number] 08:09:00 Test Item Value Reference Range Comments POC-GLUCOSE METER (BEAKER) 125 mg/dL 70-110 TESTED AT [address] (test mvbn=1723) [place] [address] BASIC METABOLIC [id number] 07:17:00 Test Item Value Reference Range Comments SODIUM (BEAKER) (test 130 meq/L 136-145 nscc=625) POTASSIUM (BEAKER) (test 3.2 meq/L 3.5-5.1 ucvx=780) CHLORIDE (BEAKER) (test 92 meq/L 98-107 dxoo=803) CO2 (BEAKER) (test 19 meq/L 22-29 tqil=869) BLOOD UREA NITROGEN 37 mg/dL 7-21 (BEAKER) (test tyfa=759) CREATININE (BEAKER) (test 6.01 mg/dL 0.57-1.25 xxax=481) GLUCOSE RANDOM (BEAKER) 150 mg/dL 70-105 (test dald=678) CALCIUM (BEAKER) (test 8.9 mg/dL 8.4-10.2 dkgv=172) EGFR (BEAKER) (test 7 mL/min/1.73 sq m ESTIMATED GFR IS NOT qajz=1334) ACCURATE CREATININE CLEARANCE IN PREDICTING GLOMERULAR FILTRATION RATE. ESTIMATED GFR IS NOT APPLICABLE FOR DIALYSIS PATIENTS. [id number] 07:16:00 Test Item Value Reference Range Comments PHOSPHORUS (BEAKER) (test twgp=086) 5.1 mg/dL 2.3-4.7 [id number] 07:16:00 Test Item Value Reference Range Comments MAGNESIUM (BEAKER) (test cmfv=434) 2.0 mg/dL 1.6-2.6 CBC W/PLT COUNT & AUTO [id number] 05:50:00 Test Item Value Reference Range Comments WHITE BLOOD CELL COUNT (BEAKER) (test awcq=201) 13.9 K/ L 3.5-10.5 RED BLOOD CELL COUNT (BEAKER) (test zqop=467) 3.13 M/ L 3.93-5.22 HEMOGLOBIN (BEAKER) (test mucw=686) 9.2 GM/DL 11.2-15.7 HEMATOCRIT (BEAKER) (test wqgw=764) 30.3 % 34.1-44.9 MEAN CORPUSCULAR VOLUME (BEAKER) (test hggo=040) 96.8 fL 79.4-94.8 MEAN CORPUSCULAR HEMOGLOBIN (BEAKER) (test 29.4 pg 25.6-32.2 sbyo=651) MEAN CORPUSCULAR HEMOGLOBIN CONC (BEAKER) (test 30.4 GM/DL 32.2-35.5 xnfc=334) RED CELL DISTRIBUTION WIDTH (BEAKER) (test 12.8 % 11.7-14.4 pxsz=291) PLATELET COUNT (BEAKER) (test qgur=167) 361 K/CU MM 150-450 MEAN PLATELET VOLUME (BEAKER) (test jmwp=593) 9.5 fL 9.4-12.3 NUCLEATED RED BLOOD CELLS (BEAKER) (test 1 /100 WBC 0-0 hcac=744) NEUTROPHILS RELATIVE PERCENT (BEAKER) (test 83 % qkfa=643) LYMPHOCYTES RELATIVE PERCENT (BEAKER) (test 10 % vdyb=928) MONOCYTES RELATIVE PERCENT (BEAKER) (test 5 % gcyr=256) EOSINOPHILS RELATIVE PERCENT (BEAKER) (test 1 % rwsm=567) BASOPHILS RELATIVE PERCENT (BEAKER) (test 0 % yshi=943) NEUTROPHILS ABSOLUTE COUNT (BEAKER) (test 11.55 K/ L 1.56-6.13 rvkr=969) LYMPHOCYTES ABSOLUTE COUNT (BEAKER) (test 1.34 K/ L 1.18-3.74 mchx=500) MONOCYTES ABSOLUTE COUNT (BEAKER) (test 0.72 K/ L 0.24-0.36 kpjk=074) EOSINOPHILS ABSOLUTE COUNT (BEAKER) (test 0.13 K/ L 0.04-0.36 dpwk=319) BASOPHILS ABSOLUTE COUNT (BEAKER) (test 0.04 K/ L 0.01-0.08 sgfm=586) IMMATURE GRANULOCYTES-RELATIVE PERCENT (BEAKER) 1 % 0-1 (test lrhc=4661) [id number] 03:28:00 Test Item Value Reference Range Comments RPR SCREEN (BEAKER) (test fcct=167) Nonreactive Nonreactive POCT-GLUCOSE [id number] 23:26:00 Test Item Value Reference Range Comments POC-GLUCOSE METER (BEAKER) 188 mg/dL 70-110 TESTED AT [address] (test pkkb=8692) [facility] [address] POCT-GLUCOSE [id number] 17:16:00 Test Item Value Reference Range Comments POC-GLUCOSE METER (BEAKER) 136 mg/dL 70-110 TESTED AT [address] (test dkec=1451) [facility] [address] POCT-GLUCOSE [id number] 17:09:00 Test Item Value Reference Range Comments POC-GLUCOSE METER (BEAKER) 100 mg/dL 70-110 TESTED AT [address] (test xvmg=2884) [facility] [address] POCT-GLUCOSE [id number] 12:10:00 Test Item Value Reference Range Comments POC-GLUCOSE METER (BEAKER) 45 mg/dL 70-110 Notified GERARDO MARION/TESTED AT [facility] (test atwo=8918) [address] [place] [address] POCT-GLUCOSE [id number] 07:55:00 Test Item Value Reference Range Comments POC-GLUCOSE METER (BEAKER) 155 mg/dL 70-110 TESTED AT [facility] [address] (test vnlh=6255) [place] [address] BLOOD GAS, [id number] 07:47:00 Test Item Value Reference Range Comments PH VENOUS (BEAKER) (test kuqa=664) 7.43 7.32-7.42 PCO2 VENOUS (BEAKER) (test ielm=258) 39 mmHg 41-51 PO2 VENOUS (BEAKER) (test piva=425) 119 mmHg 25-40 O2 SATURATION VENOUS (BEAKER) (test hmmh=300) 98.4 % 40.0-70.0 HCO3 VENOUS (BEAKER) (test yasn=161) 26 mmol/L 21-29 BASE EXCESS VENOUS (BEAKER) (test aylz=572) 1.4 mmol/L -2.0-3.0 PATIENT TEMPERATURE (BEAKER) (test jjnr=8211) 37.1 C FIO2 (BEAKER) (test kjuw=2067) 21.0 % TSH/FREE T4 IF [id number] 06:38:00 Test Item Value Reference Range Comments THYROID STIMULATING HORMONE (BEAKER) (test 0.42 uIU/mL 0.35-4.94 cbos=694) VITAMIN B12 AND [id number] 06:38:00 Test Item Value Reference Range Comments VITAMIN B12 (BEAKER) (test bltg=959) 560 pg/mL 213-816 FOLATE (BEAKER) (test wpwj=543) 6.5 ng/mL >=7.0 BASIC METABOLIC [id number] 06:18:00 Test Item Value Reference Range Comments SODIUM (BEAKER) (test 130 meq/L 136-145 hxjb=130) POTASSIUM (BEAKER) (test 3.3 meq/L 3.5-5.1 wdmb=495) CHLORIDE (BEAKER) (test 91 meq/L 98-107 ncyh=722) CO2 (BEAKER) (test 22 meq/L 22-29 lhiu=527) BLOOD UREA NITROGEN 36 mg/dL 7-21 (BEAKER) (test zmlq=043) CREATININE (BEAKER) (test 6.17 mg/dL 0.57-1.25 eqja=043) GLUCOSE RANDOM (BEAKER) 194 mg/dL 70-105 (test lmjr=841) CALCIUM (BEAKER) (test 9.3 mg/dL 8.4-10.2 uvqm=097) EGFR (BEAKER) (test 7 mL/min/1.73 sq m ESTIMATED GFR IS NOT cfxl=8217) ACCURATE CREATININE CLEARANCE IN PREDICTING GLOMERULAR FILTRATION RATE. ESTIMATED GFR IS NOT APPLICABLE FOR DIALYSIS PATIENTS. [id number] 06:12:00 Test Item Value Reference Range Comments PHOSPHORUS (BEAKER) (test wbea=988) 5.6 mg/dL 2.3-4.7 [id number] 06:12:00 Test Item Value Reference Range Comments MAGNESIUM (BEAKER) (test wldt=133) 1.8 mg/dL 1.6-2.6 CBC W/PLT COUNT & AUTO [id number] 06:05:00 Test Item Value Reference Range Comments WHITE BLOOD CELL COUNT (BEAKER) (test gvtz=536) 15.8 K/ L 3.5-10.5 RED BLOOD CELL COUNT (BEAKER) (test gxsa=466) 2.95 M/ L 3.93-5.22 HEMOGLOBIN (BEAKER) (test wnkp=241) 8.9 GM/DL 11.2-15.7 HEMATOCRIT (BEAKER) (test ukjb=570) 28.1 % 34.1-44.9 MEAN CORPUSCULAR VOLUME (BEAKER) (test eecb=795) 95.3 fL 79.4-94.8 MEAN CORPUSCULAR HEMOGLOBIN (BEAKER) (test 30.2 pg 25.6-32.2 flos=182) MEAN CORPUSCULAR HEMOGLOBIN CONC (BEAKER) (test 31.7 GM/DL 32.2-35.5 jahk=193) RED CELL DISTRIBUTION WIDTH (BEAKER) (test 12.8 % 11.7-14.4 nidq=649) PLATELET COUNT (BEAKER) (test miwe=715) 378 K/CU MM 150-450 MEAN PLATELET VOLUME (BEAKER) (test oszk=439) 9.4 fL 9.4-12.3 NUCLEATED RED BLOOD CELLS (BEAKER) (test 1 /100 WBC 0-0 pwkx=830) NEUTROPHILS RELATIVE PERCENT (BEAKER) (test 86 % ocln=577) LYMPHOCYTES RELATIVE PERCENT (BEAKER) (test 8 % hasr=257) MONOCYTES RELATIVE PERCENT (BEAKER) (test 4 % gbii=624) EOSINOPHILS RELATIVE PERCENT (BEAKER) (test 0 % mwzl=954) BASOPHILS RELATIVE PERCENT (BEAKER) (test 0 % dkdk=509) NEUTROPHILS ABSOLUTE COUNT (BEAKER) (test 13.60 K/ L 1.56-6.13 joag=788) LYMPHOCYTES ABSOLUTE COUNT (BEAKER) (test 1.32 K/ L 1.18-3.74 zmzm=573) MONOCYTES ABSOLUTE COUNT (BEAKER) (test 0.69 K/ L 0.24-0.36 rlbb=624) EOSINOPHILS ABSOLUTE COUNT (BEAKER) (test 0.05 K/ L 0.04-0.36 hbgc=851) BASOPHILS ABSOLUTE COUNT (BEAKER) (test 0.04 K/ L 0.01-0.08 zprh=819) IMMATURE GRANULOCYTES-RELATIVE PERCENT (BEAKER) 1 % 0-1 (test fnce=3421) LACTIC ACID, VENOUS, WHOLE [id number] 05:51:00 Test Item Value Reference Range Comments LACTATE BLOOD VENOUS (2) (BEAKER) (test 4.7 mmol/L 0.5-2.2 kjvg=5272) Effective 07/04/2015: Units/Reference Range ChangeNew: 0.5-2.2 mmol/L Previous: 5 -20 mg/dLPOCT-GLUCOSE [id number] 21:20:00 Test Item Value Reference Range Comments POC-GLUCOSE METER (BEAKER) 216 mg/dL 70-110 TESTED AT [facility] [address] (test blzo=4446) [facility] [address] TISSUE [id number] 20:07:00Surgical Pathology Report Case: [id number] Authorizing Provider: Bong Hatch MD Collected: 09/21/2017 1400 Ordering Location: [address] Received: 09/22/2017 5770 Service Pathologist: Howard Reese MD Specimen: Biopsy, Gastric, antrum and body A. STOMACH, ANTRUM AND BODY, BIOPSIES: - FOCALLY ACTIVE CHRONIC GASTRITIS AND REACTIVE CHANGES - NEGATIVE FOR HELICOBACTER PYLORI ORGANISMS BY WARTHIN STARRY STAIN - NEGATIVE FOR INTESTINAL METAPLASIA, DYSPLASIA, MALIGNANCY Signing Pathologist Direct Phone Line: [phone] signed by Howard Reese MD on at 8:07 [id number] bleed Gastric antrum and body biopsyReceived in formalin labeled "biopsy, gastric", description "antrum and body" are four fragments measuring 1.2 x 0.6 x 0.1 cm in aggregate. The specimen is entirely submitted in A1. DB/ewPerformed.POCT-GLUCOSE [id number] 17:39:00 Test Item Value Reference Range Comments POC-GLUCOSE METER (BEAKER) 84 mg/dL 70-110 TESTED AT [address] (test rncc=1730) [place] [id number] POCT-GLUCOSE [id number] 12:04:00 Test Item Value Reference Range Comments POC-GLUCOSE METER (BEAKER) 160 mg/dL 70-110 TESTED AT [address] (test lirq=4816) [facility] [address] POCT-GLUCOSE [id number] 08:24:00 Test Item Value Reference Range Comments POC-GLUCOSE METER (BEAKER) 152 mg/dL 70-110 TESTED AT [address] (test jeqn=5291) [place] [id number] LACTIC ACID, VENOUS, WHOLE [id number] 06:57:00 Test Item Value Reference Range Comments LACTATE BLOOD VENOUS (2) 3.0 mmol/L 0.5-2.2 Specimen slightly hemolyzed (BEAKER) (test zvot=6022) Effective 07/04/2015: Units/Reference Range ChangeNew: 0.5-2.2 mmol/L Previous: 5 -20 mg/dLBASIC METABOLIC [id number] 02:18:00 Test Item Value Reference Range Comments SODIUM (BEAKER) (test 127 meq/L 136-145 ezxg=003) POTASSIUM (BEAKER) (test 3.3 meq/L 3.5-5.1 ljuw=929) CHLORIDE (BEAKER) (test 89 meq/L 98-107 iemt=876) CO2 (BEAKER) (test 23 meq/L 22-29 fpws=341) BLOOD UREA NITROGEN 37 mg/dL 7-21 (BEAKER) (test iiuu=250) CREATININE (BEAKER) (test 6.31 mg/dL 0.57-1.25 rpxg=442) GLUCOSE RANDOM (BEAKER) 202 mg/dL 70-105 (test wups=926) CALCIUM (BEAKER) (test 8.9 mg/dL 8.4-10.2 elof=667) EGFR (BEAKER) (test 6 mL/min/1.73 sq m ESTIMATED GFR IS NOT iplf=1392) ACCURATE CREATININE CLEARANCE IN PREDICTING GLOMERULAR FILTRATION RATE. ESTIMATED GFR IS NOT APPLICABLE FOR DIALYSIS PATIENTS. [id number] 02:10:00 Test Item Value Reference Range Comments PHOSPHORUS (BEAKER) (test midl=707) 5.5 mg/dL 2.3-4.7 [id number] 02:10:00 Test Item Value Reference Range Comments MAGNESIUM (BEAKER) (test cqab=618) 1.8 mg/dL 1.6-2.6 CBC W/PLT COUNT & AUTO [id number] 01:46:00 Test Item Value Reference Range Comments WHITE BLOOD CELL COUNT (BEAKER) (test aotn=574) 17.5 K/ L 3.5-10.5 RED BLOOD CELL COUNT (BEAKER) (test lqim=342) 3.01 M/ L 3.93-5.22 HEMOGLOBIN (BEAKER) (test dqcg=274) 9.2 GM/DL 11.2-15.7 HEMATOCRIT (BEAKER) (test fneo=654) 29.5 % 34.1-44.9 MEAN CORPUSCULAR VOLUME (BEAKER) (test gzam=614) 98.0 fL 79.4-94.8 MEAN CORPUSCULAR HEMOGLOBIN (BEAKER) (test 30.6 pg 25.6-32.2 iiyx=709) MEAN CORPUSCULAR HEMOGLOBIN CONC (BEAKER) (test 31.2 GM/DL 32.2-35.5 esaa=252) RED CELL DISTRIBUTION WIDTH (BEAKER) (test 13.1 % 11.7-14.4 eodk=794) PLATELET COUNT (BEAKER) (test lyic=438) 420 K/CU MM 150-450 MEAN PLATELET VOLUME (BEAKER) (test zgei=088) 9.0 fL 9.4-12.3 NUCLEATED RED BLOOD CELLS (BEAKER) (test 0 /100 WBC 0-0 zjef=828) NEUTROPHILS RELATIVE PERCENT (BEAKER) (test 80 % rzlq=580) LYMPHOCYTES RELATIVE PERCENT (BEAKER) (test 11 % zjff=986) MONOCYTES RELATIVE PERCENT (BEAKER) (test 6 % qsxn=245) EOSINOPHILS RELATIVE PERCENT (BEAKER) (test 2 % nbum=438) BASOPHILS RELATIVE PERCENT (BEAKER) (test 0 % vbpc=137) NEUTROPHILS ABSOLUTE COUNT (BEAKER) (test 13.91 K/ L 1.56-6.13 iexz=481) LYMPHOCYTES ABSOLUTE COUNT (BEAKER) (test 1.97 K/ L 1.18-3.74 yfxi=006) MONOCYTES ABSOLUTE COUNT (BEAKER) (test 1.02 K/ L 0.24-0.36 bavq=169) EOSINOPHILS ABSOLUTE COUNT (BEAKER) (test 0.32 K/ L 0.04-0.36 ltck=429) BASOPHILS ABSOLUTE COUNT (BEAKER) (test 0.05 K/ L 0.01-0.08 pgeu=196) IMMATURE GRANULOCYTES-RELATIVE PERCENT (BEAKER) 1 % 0-1 (test jmox=6530) POCT-GLUCOSE [id number] 21:40:00 Test Item Value Reference Range Comments POC-GLUCOSE METER (BEAKER) 151 mg/dL 70-110 TESTED AT [address] (test nyys=5383) [place] [address] POCT-GLUCOSE [id number] 17:57:00 Test Item Value Reference Range Comments POC-GLUCOSE METER (BEAKER) 84 mg/dL 70-110 TESTED AT [address] (test dton=1767) [place] [address] POCT-GLUCOSE [id number] 07:58:00 Test Item Value Reference Range Comments POC-GLUCOSE METER (BEAKER) 185 mg/dL 70-110 TESTED AT [address] (test yfvk=3022) [place] [address] [id number] 07:18:00 Test Item Value Reference Range Comments PHOSPHORUS (BEAKER) (test ypez=883) 5.4 mg/dL 2.3-4.7 [id number] 07:18:00 Test Item Value Reference Range Comments MAGNESIUM (BEAKER) (test igvl=026) 2.1 mg/dL 1.6-2.6 BASIC METABOLIC [id number] 07:18:00 Test Item Value Reference Range Comments SODIUM (BEAKER) (test 129 meq/L 136-145 teun=119) POTASSIUM (BEAKER) (test 3.6 meq/L 3.5-5.1 bwxn=103) CHLORIDE (BEAKER) (test 88 meq/L 98-107 qixo=926) CO2 (BEAKER) (test 21 meq/L 22-29 bocn=226) BLOOD UREA NITROGEN 34 mg/dL 7-21 (BEAKER) (test romx=460) CREATININE (BEAKER) (test 6.48 mg/dL 0.57-1.25 dkwl=594) GLUCOSE RANDOM (BEAKER) 228 mg/dL 70-105 (test ahtk=080) CALCIUM (BEAKER) (test 9.4 mg/dL 8.4-10.2 seuv=889) EGFR (BEAKER) (test 6 mL/min/1.73 sq m ESTIMATED GFR IS NOT terk=0280) ACCURATE CREATININE CLEARANCE IN PREDICTING GLOMERULAR FILTRATION RATE. ESTIMATED GFR IS NOT APPLICABLE FOR DIALYSIS PATIENTS. CBC W/PLT COUNT & AUTO [id number] 06:31:00 Test Item Value Reference Range Comments WHITE BLOOD CELL COUNT (BEAKER) (test anby=901) 15.1 K/ L 3.5-10.5 RED BLOOD CELL COUNT (BEAKER) (test gpbq=790) 3.35 M/ L 3.93-5.22 HEMOGLOBIN (BEAKER) (test flmw=011) 9.9 GM/DL 11.2-15.7 HEMATOCRIT (BEAKER) (test mwqz=628) 32.4 % 34.1-44.9 MEAN CORPUSCULAR VOLUME (BEAKER) (test dppt=785) 96.7 fL 79.4-94.8 MEAN CORPUSCULAR HEMOGLOBIN (BEAKER) (test 29.6 pg 25.6-32.2 hrul=025) MEAN CORPUSCULAR HEMOGLOBIN CONC (BEAKER) (test 30.6 GM/DL 32.2-35.5 iqsv=886) RED CELL DISTRIBUTION WIDTH (BEAKER) (test 13.0 % 11.7-14.4 zytc=326) PLATELET COUNT (BEAKER) (test ensm=245) 488 K/CU MM 150-450 MEAN PLATELET VOLUME (BEAKER) (test rpmt=632) 9.7 fL 9.4-12.3 NUCLEATED RED BLOOD CELLS (BEAKER) (test 0 /100 WBC 0-0 umkr=312) NEUTROPHILS RELATIVE PERCENT (BEAKER) (test 81 % aozz=136) LYMPHOCYTES RELATIVE PERCENT (BEAKER) (test 10 % pxhf=356) MONOCYTES RELATIVE PERCENT (BEAKER) (test 6 % jyth=074) EOSINOPHILS RELATIVE PERCENT (BEAKER) (test 0 % hnny=641) BASOPHILS RELATIVE PERCENT (BEAKER) (test 1 % tpth=772) NEUTROPHILS ABSOLUTE COUNT (BEAKER) (test 12.26 K/ L 1.56-6.13 oukx=191) LYMPHOCYTES ABSOLUTE COUNT (BEAKER) (test 1.55 K/ L 1.18-3.74 lulg=819) MONOCYTES ABSOLUTE COUNT (BEAKER) (test 0.88 K/ L 0.24-0.36 rxns=170) EOSINOPHILS ABSOLUTE COUNT (BEAKER) (test 0.04 K/ L 0.04-0.36 jtrf=600) BASOPHILS ABSOLUTE COUNT (BEAKER) (test 0.09 K/ L 0.01-0.08 gbah=921) IMMATURE GRANULOCYTES-RELATIVE PERCENT (BEAKER) 2 % 0-1 (test slta=5870) POCT-GLUCOSE [id number] 20:29:00 Test Item Value Reference Range Comments POC-GLUCOSE METER (BEAKER) 204 mg/dL 70-110 TESTED AT [address] (test pghf=3935) [place] [address] POCT-GLUCOSE [id number] 17:30:00 Test Item Value Reference Range Comments POC-GLUCOSE METER (BEAKER) 190 mg/dL 70-110 TESTED AT [address] (test yiat=0441) [place] [address] POCT-GLUCOSE [id number] 11:54:00 Test Item Value Reference Range Comments POC-GLUCOSE METER (BEAKER) 229 mg/dL 70-110 TESTED AT [address] (test lody=8942) [place] [address] POCT-GLUCOSE [id number] 08:35:00 Test Item Value Reference Range Comments POC-GLUCOSE METER (BEAKER) 244 mg/dL 70-110 TESTED AT [address] (test zmez=1696) [place] [address] BASIC METABOLIC [id number] 02:06:00 Test Item Value Reference Range Comments SODIUM (BEAKER) (test 130 meq/L 136-145 vkxd=777) POTASSIUM (BEAKER) (test 3.9 meq/L 3.5-5.1 kpzj=735) CHLORIDE (BEAKER) (test 91 meq/L 98-107 uumq=433) CO2 (BEAKER) (test 20 meq/L 22-29 miag=220) BLOOD UREA NITROGEN 36 mg/dL 7-21 (BEAKER) (test heck=096) CREATININE (BEAKER) (test 7.38 mg/dL 0.57-1.25 hhtp=392) GLUCOSE RANDOM (BEAKER) 145 mg/dL 70-105 (test vkrt=511) CALCIUM (BEAKER) (test 9.3 mg/dL 8.4-10.2 hxfz=832) EGFR (BEAKER) (test 5 mL/min/1.73 sq m ESTIMATED GFR IS NOT kpio=3286) ACCURATE CREATININE CLEARANCE IN PREDICTING GLOMERULAR FILTRATION RATE. ESTIMATED GFR IS NOT APPLICABLE FOR DIALYSIS PATIENTS. TROPONIN [id number] 02:06:00 Test Item Value Reference Range Comments TROPONIN I (BEAKER) (test yuhv=379) 0.02 ng/mL 0.00-0.03 Troponin I (TnI) levels must be interpreted [...] failure, acidosis, acute neurological disease, and persistent tachyarrhythmia.[id number] 01:58:00 Test Item Value Reference Range Comments PHOSPHORUS (BEAKER) (test dqzq=681) 5.5 mg/dL 2.3-4.7 [id number] 01:58:00 Test Item Value Reference Range Comments MAGNESIUM (BEAKER) (test tmfu=472) 2.1 mg/dL 1.6-2.6 CBC W/PLT COUNT & AUTO [id number] 01:48:00 Test Item Value Reference Range Comments WHITE BLOOD CELL COUNT (BEAKER) (test ftdv=058) 18.9 K/ L 3.5-10.5 RED BLOOD CELL COUNT (BEAKER) (test hfmn=725) 3.02 M/ L 3.93-5.22 HEMOGLOBIN (BEAKER) (test ogqh=623) 9.1 GM/DL 11.2-15.7 HEMATOCRIT (BEAKER) (test myck=639) 29.5 % 34.1-44.9 MEAN CORPUSCULAR VOLUME (BEAKER) (test zhvc=150) 97.7 fL 79.4-94.8 MEAN CORPUSCULAR HEMOGLOBIN (BEAKER) (test 30.1 pg 25.6-32.2 ogtl=328) MEAN CORPUSCULAR HEMOGLOBIN CONC (BEAKER) (test 30.8 GM/DL 32.2-35.5 kpyq=908) RED CELL DISTRIBUTION WIDTH (BEAKER) (test 12.9 % 11.7-14.4 emkc=944) PLATELET COUNT (BEAKER) (test idnn=470) 519 K/CU MM 150-450 MEAN PLATELET VOLUME (BEAKER) (test cjxt=249) 9.6 fL 9.4-12.3 NUCLEATED RED BLOOD CELLS (BEAKER) (test 0 /100 WBC 0-0 kyme=565) NEUTROPHILS RELATIVE PERCENT (BEAKER) (test 79 % abyz=412) LYMPHOCYTES RELATIVE PERCENT (BEAKER) (test 11 % ehkl=492) MONOCYTES RELATIVE PERCENT (BEAKER) (test 6 % rorj=804) EOSINOPHILS RELATIVE PERCENT (BEAKER) (test 1 % vhjn=019) BASOPHILS RELATIVE PERCENT (BEAKER) (test 0 % tqum=173) NEUTROPHILS ABSOLUTE COUNT (BEAKER) (test 14.96 K/ L 1.56-6.13 ewur=180) LYMPHOCYTES ABSOLUTE COUNT (BEAKER) (test 2.16 K/ L 1.18-3.74 hwuy=055) MONOCYTES ABSOLUTE COUNT (BEAKER) (test 1.22 K/ L 0.24-0.36 iwsc=570) EOSINOPHILS ABSOLUTE COUNT (BEAKER) (test 0.22 K/ L 0.04-0.36 gqmi=067) BASOPHILS ABSOLUTE COUNT (BEAKER) (test 0.08 K/ L 0.01-0.08 xbcf=989) IMMATURE GRANULOCYTES-RELATIVE PERCENT (BEAKER) 2 % 0-1 (test xule=3212) POCT-GLUCOSE [id number] 21:15:00 Test Item Value Reference Range Comments POC-GLUCOSE METER (BEAKER) 171 mg/dL 70-110 TESTED AT [address] (test alrf=7707) [facility] [address] POCT-GLUCOSE [id number] 17:51:00 Test Item Value Reference Range Comments POC-GLUCOSE METER (BEAKER) 87 mg/dL 70-110 TESTED AT [address] (test pyed=6313) [facility] [address] POCT-GLUCOSE [id number] 17:22:00 Test Item Value Reference Range Comments POC-GLUCOSE METER (BEAKER) 58 mg/dL 70-110 Notified GERARDO MARION/TESTED AT [facility] (test ndbq=6343) [address] [place] [address] POCT-GLUCOSE [id number] 11:11:00 Test Item Value Reference Range Comments POC-GLUCOSE METER (BEAKER) 160 mg/dL 70-110 TESTED AT [address] (test mnyb=8458) [facility] [address] POCT-GLUCOSE [id number] 10:36:00 Test Item Value Reference Range Comments POC-GLUCOSE METER (BEAKER) 159 mg/dL 70-110 TESTED AT [address] (test kanc=3428) [facility] [address] BASIC METABOLIC [id number] 09:19:00 Test Item Value Reference Range Comments SODIUM (BEAKER) (test 132 meq/L 136-145 qizx=271) POTASSIUM (BEAKER) (test 3.6 meq/L 3.5-5.1 ypav=009) CHLORIDE (BEAKER) (test 91 meq/L 98-107 rcqo=847) CO2 (BEAKER) (test 24 meq/L 22-29 jcih=935) BLOOD UREA NITROGEN 35 mg/dL 7-21 (BEAKER) (test wxvj=827) CREATININE (BEAKER) (test 7.50 mg/dL 0.57-1.25 qdcp=297) GLUCOSE RANDOM (BEAKER) 193 mg/dL 70-105 (test ovtl=249) CALCIUM (BEAKER) (test 10.1 mg/dL 8.4-10.2 rpot=518) EGFR (BEAKER) (test 5 mL/min/1.73 sq m ESTIMATED GFR IS NOT ridl=3497) ACCURATE CREATININE CLEARANCE IN PREDICTING GLOMERULAR FILTRATION RATE. ESTIMATED GFR IS NOT APPLICABLE FOR DIALYSIS PATIENTS. [id number] 09:17:00 Test Item Value Reference Range Comments PHOSPHORUS (BEAKER) (test ngoj=972) 4.7 mg/dL 2.3-4.7 [id number] 09:17:00 Test Item Value Reference Range Comments MAGNESIUM (BEAKER) (test idun=843) 2.3 mg/dL 1.6-2.6 CBC W/PLT COUNT & AUTO [id number] 07:50:00 Test Item Value Reference Range Comments WHITE BLOOD CELL COUNT (BEAKER) (test ahwn=322) 17.4 K/ L 3.5-10.5 RED BLOOD CELL COUNT (BEAKER) (test roin=695) 3.07 M/ L 3.93-5.22 HEMOGLOBIN (BEAKER) (test nuhi=649) 9.5 GM/DL 11.2-15.7 HEMATOCRIT (BEAKER) (test ogve=155) 30.1 % 34.1-44.9 MEAN CORPUSCULAR VOLUME (BEAKER) (test chmz=866) 98.0 fL 79.4-94.8 MEAN CORPUSCULAR HEMOGLOBIN (BEAKER) (test 30.9 pg 25.6-32.2 honb=928) MEAN CORPUSCULAR HEMOGLOBIN CONC (BEAKER) (test 31.6 GM/DL 32.2-35.5 jtvn=895) RED CELL DISTRIBUTION WIDTH (BEAKER) (test 12.9 % 11.7-14.4 onvv=126) PLATELET COUNT (BEAKER) (test hkye=740) 490 K/CU MM 150-450 MEAN PLATELET VOLUME (BEAKER) (test xfko=665) 10.0 fL 9.4-12.3 NUCLEATED RED BLOOD CELLS (BEAKER) (test 0 /100 WBC 0-0 hxdf=525) NEUTROPHILS RELATIVE PERCENT (BEAKER) (test 78 % jpch=018) LYMPHOCYTES RELATIVE PERCENT (BEAKER) (test 12 % iycg=099) MONOCYTES RELATIVE PERCENT (BEAKER) (test 7 % egzv=204) EOSINOPHILS RELATIVE PERCENT (BEAKER) (test 0 % kxwk=574) BASOPHILS RELATIVE PERCENT (BEAKER) (test 0 % oslg=523) NEUTROPHILS ABSOLUTE COUNT (BEAKER) (test 13.61 K/ L 1.56-6.13 iuaa=464) LYMPHOCYTES ABSOLUTE COUNT (BEAKER) (test 2.11 K/ L 1.18-3.74 scbj=810) MONOCYTES ABSOLUTE COUNT (BEAKER) (test 1.23 K/ L 0.24-0.36 arzn=610) EOSINOPHILS ABSOLUTE COUNT (BEAKER) (test 0.07 K/ L 0.04-0.36 evtz=357) BASOPHILS ABSOLUTE COUNT (BEAKER) (test 0.06 K/ L 0.01-0.08 qkuo=697) IMMATURE GRANULOCYTES-RELATIVE PERCENT (BEAKER) 2 % 0-1 (test zjpm=6308) POCT-GLUCOSE [id number] 20:30:00 Test Item Value Reference Range Comments POC-GLUCOSE METER (BEAKER) 162 mg/dL 70-110 TESTED AT [address] (test wkbx=8330) [place] [address] POCT-GLUCOSE [id number] 19:24:00 Test Item Value Reference Range Comments POC-GLUCOSE METER (BEAKER) 66 mg/dL 70-110 TESTED AT [address] (test puqu=7379) [place] [address] BLOOD [id number] 18:31:00 Test Item Value Reference Range Comments CULTURE (BEAKER) (test zeyo=8470) No growth in 5 days BLOOD [id number] 18:31:00 Test Item Value Reference Range Comments CULTURE (BEAKER) (test qyxo=6390) No growth in 5 days POCT-GLUCOSE [id number] 17:33:00 Test Item Value Reference Range Comments POC-GLUCOSE METER (BEAKER) 63 mg/dL 70-110 Notified GERARDO MARION/TESTED AT [facility] (test qbnj=5959) [address] [place] [address] POCT-GLUCOSE [id number] 17:17:00 Test Item Value Reference Range Comments POC-GLUCOSE METER (BEAKER) 46 mg/dL 70-110 TESTED AT [address] (test rxfk=8368) [place] [address] CT, CHEST, WITH [id number] 17:00:00FINAL REPORT CT of the chest, abdomen and pelvis, with contrast Clinical History: nocardia infection, 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 This exam was performed according to our departmental dose optimization program which includes automated exposure control, adjustment of themA and/or kV according to patient's size and/or use of iterative reconstructive technique. Comparison Film : None Discussion: Visualized thyroid gland is unremarkable. There is no supraclavicular, axillary, mediastinal or hilar lymphadenopathy. Heart and pericardium are unremarkable. There is no mass or consolidation, no pleural effusion. Central airways are patent, no bronchiectasis, or bronchial wall thickening. 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 There is a 2.4 cm lesion in liverwith dense peripheral calcification. No biliary ductal dilatation, [...] hematoma. Right inguinal lymphadenopathy. 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 This exam was performed according to our departmental dose optimization program which includes automated exposure control , adjustment of themA and/or kV according to patient's size and/or use of iterative reconstructive technique. Comparison Film: None Discussion: Visualized thyroid gland is unremarkable. There is no supraclavicular, axillary , mediastinal or hilar lymphadenopathy. Heart and pericardium are unremarkable. There is no mass or consolidation, no pleural effusion. Central airways are patent, no bronchiectasis, or bronchial wall thickening. 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 There is a 2.4 cm lesion in liverwith dense peripheral calcification. No biliary ductal dilatation, [...] hematoma. Right inguinal lymphadenopathy. Signed: Jennifer Bradford Verified Date/Time: 09/18/2017 17:00:33 Reading Location: [address] Body Reading Room CT, BRAIN, [id number] 15:53:00FINAL REPORT CT Head with and without contrast [...] are atherosclerotic calcifications of the intracranial circulation. Thereis generalized parenchymal volume loss without hydrocephalus, midline shift, or apparent mass effect. There are no extra-axial fluid collections. The skull is intact. The visualized paranasal sinuses are well- aerated. IMPRESSION: No CT evidence of abnormal intracranial enhancement, infarct, hemorrhage, or hydrocephalus Signed: Rosi Valles Verified Date/Time: 09/18/2017 15:53:58 ReadingLocation: [facility] Reading Room POCT-GLUCOSE [id number] 11:41:00 Test Item Value Reference Range Comments POC-GLUCOSE METER (BEAKER) 139 mg/dL 70-110 TESTED AT [facility] [address] [facility] (test svvb=1068) [facility] [address] POCT-GLUCOSE [id number] 08:15:00 Test Item Value Reference Range Comments POC-GLUCOSE METER (BEAKER) 284 mg/dL 70-110 TESTED AT [facility] [address] [facility] (test uvis=6054) [facility] [address] BASIC METABOLIC [id number] 07:04:00 Test Item Value Reference Range Comments SODIUM (BEAKER) (test 130 meq/L 136-145 mjff=530) POTASSIUM (BEAKER) (test 3.7 meq/L 3.5-5.1 vlxk=840) CHLORIDE (BEAKER) (test 92 meq/L 98-107 dzok=620) CO2 (BEAKER) (test 22 meq/L 22-29 nfjq=176) BLOOD UREA NITROGEN 37 mg/dL 7-21 (BEAKER) (test tkpu=642) CREATININE (BEAKER) (test 7.56 mg/dL 0.57-1.25 egpk=528) GLUCOSE RANDOM (BEAKER) 237 mg/dL 70-105 (test dlzc=169) CALCIUM (BEAKER) (test 9.5 mg/dL 8.4-10.2 nixc=342) EGFR (BEAKER) (test 5 mL/min/1.73 sq m ESTIMATED GFR IS NOT jjbh=8898) ACCURATE CREATININE CLEARANCE IN PREDICTING GLOMERULAR FILTRATION RATE. ESTIMATED GFR IS NOT APPLICABLE FOR DIALYSIS PATIENTS. [id number] 07:02:00 Test Item Value Reference Range Comments PHOSPHORUS (BEAKER) (test fqow=257) 4.4 mg/dL 2.3-4.7 [id number] 07:02:00 Test Item Value Reference Range Comments MAGNESIUM (BEAKER) (test kcsu=503) 2.1 mg/dL 1.6-2.6 CBC W/PLT COUNT & AUTO [id number] 06:32:00 Test Item Value Reference Range Comments WHITE BLOOD CELL COUNT (BEAKER) (test bthz=629) 16.0 K/ L 3.5-10.5 RED BLOOD CELL COUNT (BEAKER) (test mlay=330) 3.07 M/ L 3.93-5.22 HEMOGLOBIN (BEAKER) (test jrhm=503) 8.9 GM/DL 11.2-15.7 HEMATOCRIT (BEAKER) (test hsxk=711) 30.2 % 34.1-44.9 MEAN CORPUSCULAR VOLUME (BEAKER) (test nmda=192) 98.4 fL 79.4-94.8 MEAN CORPUSCULAR HEMOGLOBIN (BEAKER) (test 29.0 pg 25.6-32.2 hndv=607) MEAN CORPUSCULAR HEMOGLOBIN CONC (BEAKER) (test 29.5 GM/DL 32.2-35.5 scdg=102) RED CELL DISTRIBUTION WIDTH (BEAKER) (test 12.6 % 11.7-14.4 mpqr=933) PLATELET COUNT (BEAKER) (test okcy=690) 499 K/CU MM 150-450 MEAN PLATELET VOLUME (BEAKER) (test ghpp=212) 9.7 fL 9.4-12.3 NUCLEATED RED BLOOD CELLS (BEAKER) (test 0 /100 WBC 0-0 tqzv=452) NEUTROPHILS RELATIVE PERCENT (BEAKER) (test 74 % jtgv=569) LYMPHOCYTES RELATIVE PERCENT (BEAKER) (test 12 % pcom=761) MONOCYTES RELATIVE PERCENT (BEAKER) (test 8 % yvxj=125) EOSINOPHILS RELATIVE PERCENT (BEAKER) (test 2 % zlaj=012) BASOPHILS RELATIVE PERCENT (BEAKER) (test 1 % gjrd=897) NEUTROPHILS ABSOLUTE COUNT (BEAKER) (test 11.83 K/ L 1.56-6.13 ztyb=742) LYMPHOCYTES ABSOLUTE COUNT (BEAKER) (test 1.91 K/ L 1.18-3.74 nlgf=185) MONOCYTES ABSOLUTE COUNT (BEAKER) (test 1.28 K/ L 0.24-0.36 lcwk=980) EOSINOPHILS ABSOLUTE COUNT (BEAKER) (test 0.26 K/ L 0.04-0.36 afpt=618) BASOPHILS ABSOLUTE COUNT (BEAKER) (test 0.10 K/ L 0.01-0.08 vjyl=981) IMMATURE GRANULOCYTES-RELATIVE PERCENT (BEAKER) 4 % 0-1 (test acnv=5015) POCT-GLUCOSE [id number] 23:04:00 Test Item Value Reference Range Comments POC-GLUCOSE METER (BEAKER) 183 mg/dL 70-110 TESTED AT [address] (test tlgl=0122) [facility] [address] POCT-GLUCOSE [id number] 17:27:00 Test Item Value Reference Range Comments POC-GLUCOSE METER (BEAKER) 189 mg/dL 70-110 TESTED AT [address] (test hfre=7980) [facility] [address] POCT-GLUCOSE [id number] 15:27:00 Test Item Value Reference Range Comments POC-GLUCOSE METER (BEAKER) 273 mg/dL 70-110 TESTED AT [address] (test cidv=8292) [facility] [address] POCT-GLUCOSE [id number] 12:53:00 Test Item Value Reference Range Comments POC-GLUCOSE METER (BEAKER) 226 mg/dL 70-110 TESTED AT [address] (test ynlj=6379) [facility] [address] CBC W/PLT COUNT & AUTO [id number] 09:02:00 Test Item Value Reference Range Comments WHITE BLOOD CELL COUNT (BEAKER) (test znql=626) 19.1 K/ L 3.5-10.5 RED BLOOD CELL COUNT (BEAKER) (test reah=711) 2.99 M/ L 3.93-5.22 HEMOGLOBIN (BEAKER) (test zfnq=363) 8.9 GM/DL 11.2-15.7 HEMATOCRIT (BEAKER) (test elxc=273) 29.6 % 34.1-44.9 MEAN CORPUSCULAR VOLUME (BEAKER) (test gaai=588) 99.0 fL 79.4-94.8 MEAN CORPUSCULAR HEMOGLOBIN (BEAKER) (test 29.8 pg 25.6-32.2 ghbb=072) MEAN CORPUSCULAR HEMOGLOBIN CONC (BEAKER) (test 30.1 GM/DL 32.2-35.5 rxxm=323) RED CELL DISTRIBUTION WIDTH (BEAKER) (test 12.7 % 11.7-14.4 dsxf=717) PLATELET COUNT (BEAKER) (test bdnx=145) 464 K/CU MM 150-450 MEAN PLATELET VOLUME (BEAKER) (test hssk=890) 10.3 fL 9.4-12.3 NUCLEATED RED BLOOD CELLS (BEAKER) (test 0 /100 WBC 0-0 aggv=526) (CELLAVISION MANUAL DIFF)2017-09-17 09:02:00 Test Item Value Reference Range Comments NEUTROPHILS - REL (CELLAVISION)(BEAKER) (test 78 % nxpr=5320) LYMPHOCYTES - REL (CELLAVISION)(BEAKER) (test 9 % yrws=1705) MONOCYTES - REL (CELLAVISION)(BEAKER) (test 8 % ndun=2816) EOSINOPHILS - REL (CELLAVISION)(BEAKER) (test 3 % cwku=4562) BANDS - REL (CELLAVISION)(BEAKER) (test 1 % 0-10 pdga=7871) ATYPICAL LYMPHOCYTES - REL (CELLAVISION)(BEAKER) 1 % 0-0 (test fcgg=5666) NEUTROPHILS - ABS (CELLAVISION)(BEAKER) (test 14.90 K/ul 1.56-6.13 xvis=2041) LYMPHOCYTES - ABS (CELLAVISION)(BEAKER) (test 1.72 K/ul 1.18-3.74 fqgm=6842) MONOCYTES - ABS (CELLAVISION)(BEAKER) (test 1.53 K/uL 0.24-0.36 zgna=4069) EOSINOPHILS - ABS (CELLAVISION)(BEAKER) (test 0.57 K/uL 0.04-0.36 tcih=3616) BANDS - ABS (CELLAVISION)(BEAKER) (test 0.19 K/uL 0.00-0.80 bzhw=5478) ATYPICAL LYMPHOCYTES - ABS (CELLAVISION)(BEAKER) 0.19 K/uL 0.00-0.00 (test dyzt=6088) TOTAL COUNTED (BEAKER) (test rpba=0700) 100 MANUAL NRBC PER 100 CELLS (BEAKER) (test 3 /100 WBC 0-0 hqcz=2872) WBC MORPHOLOGY (BEAKER) (test xzez=901) Normal PLT MORPHOLOGY (BEAKER) (test hkwu=962) Normal ANISOCYTOSIS (BEAKER) (test njek=136) 1+ few ARTIFACT (CELLAVISION)(BEAKER) (test pujw=8442) Present PLATELET CONCENTRATION (CELLAVISION)(BEAKER) Increased (test shfu=0746) Received comment: User comments: Slide comments:BASIC METABOLIC [id number] 07:35:00 Test Item Value Reference Range Comments SODIUM (BEAKER) (test 135 meq/L 136-145 zqba=396) POTASSIUM (BEAKER) (test 4.0 meq/L 3.5-5.1 Specimen slightly ecrq=643) hemolyzed CHLORIDE (BEAKER) (test 96 meq/L 98-107 sbbe=602) CO2 (BEAKER) (test 22 meq/L 22-29 dxhd=423) BLOOD UREA NITROGEN 37 mg/dL 7-21 (BEAKER) (test zzmz=587) CREATININE (BEAKER) (test 8.06 mg/dL 0.57-1.25 Specimen slightly ijmz=145) hemolyzed GLUCOSE RANDOM (BEAKER) 165 mg/dL 70-105 (test hwot=754) CALCIUM (BEAKER) (test 9.8 mg/dL 8.4-10.2 gjoq=054) EGFR (BEAKER) (test 5 mL/min/1.73 sq m ESTIMATED GFR IS NOT cbmf=5810) ACCURATE CREATININE CLEARANCE IN PREDICTING GLOMERULAR FILTRATION RATE. ESTIMATED GFR IS NOT APPLICABLE FOR DIALYSIS PATIENTS. [id number] 07:34:00 Test Item Value Reference Range Comments MAGNESIUM (BEAKER) (test 2.3 mg/dL 1.6-2.6 Specimen slightly hemolyzed ybbf=765) [id number] 07:34:00 Test Item Value Reference Range Comments PHOSPHORUS (BEAKER) (test 4.3 mg/dL 2.3-4.7 Specimen slightly hemolyzed jofp=442) POCT-GLUCOSE [id number] 22:10:00 Test Item Value Reference Range Comments POC-GLUCOSE METER (BEAKER) 100 mg/dL 70-110 TESTED AT [place] [id number] [facility] (test dbfp=2596) [facility] [address] POCT-GLUCOSE [id number] 16:51:00 Test Item Value Reference Range Comments POC-GLUCOSE METER (BEAKER) 73 mg/dL 70-110 TESTED AT [address] (test vzga=7075) [facility] [address] POCT-GLUCOSE [id number] 13:11:00 Test Item Value Reference Range Comments POC-GLUCOSE METER (BEAKER) 109 mg/dL 70-110 TESTED AT [facility] [address] [facility] (test oaih=6102) [place] [address] BODY FLUID CULTURE + GRAM [id number] 11:40:00 Test Item Value Reference Range Comments CULTURE (BEAKER) (test lbjy=0163) No growth GRAM STAIN RESULT (BEAKER) (test No White blood cells seen seqk=6126) GRAM STAIN RESULT (BEAKER) (test No organisms seen czbn=49035) POCT-GLUCOSE [id number] 08:03:00 Test Item Value Reference Range Comments POC-GLUCOSE METER (BEAKER) 201 mg/dL 70-110 TESTED AT [address] (test wwpt=2260) [place] [id number] BASIC METABOLIC [id number] 06:12:00 Test Item Value Reference Range Comments SODIUM (BEAKER) (test 133 meq/L 136-145 xeke=123) POTASSIUM (BEAKER) (test 3.6 meq/L 3.5-5.1 buai=331) CHLORIDE (BEAKER) (test 95 meq/L 98-107 nnni=553) CO2 (BEAKER) (test 22 meq/L 22-29 josw=312) BLOOD UREA NITROGEN 35 mg/dL 7-21 (BEAKER) (test zcph=491) CREATININE (BEAKER) (test 7.69 mg/dL 0.57-1.25 wrsl=552) GLUCOSE RANDOM (BEAKER) 246 mg/dL 70-105 (test xvyb=543) CALCIUM (BEAKER) (test 9.7 mg/dL 8.4-10.2 zpsa=130) EGFR (BEAKER) (test 5 mL/min/1.73 sq m ESTIMATED GFR IS NOT twdm=8015) ACCURATE CREATININE CLEARANCE IN PREDICTING GLOMERULAR FILTRATION RATE. ESTIMATED GFR IS NOT APPLICABLE FOR DIALYSIS PATIENTS. [id number] 06:07:00 Test Item Value Reference Range Comments PHOSPHORUS (BEAKER) (test ryta=701) 3.3 mg/dL 2.3-4.7 [id number] 06:07:00 Test Item Value Reference Range Comments MAGNESIUM (BEAKER) (test tcsx=852) 1.9 mg/dL 1.6-2.6 VANCOMYCIN LEVEL, [id number] 05:53:00 Test Item Value Reference Range Comments VANCOMYCIN RANDOM (BEAKER) (test wwzo=903) 19.6 ug/mL Reference Range: No NormalsCBC W/PLT COUNT & AUTO [id number] 05: 28:00 Test Item Value Reference Range Comments WHITE BLOOD CELL COUNT (BEAKER) (test gghd=739) 18.0 K/ L 3.5-10.5 RED BLOOD CELL COUNT (BEAKER) (test plbh=611) 2.97 M/ L 3.93-5.22 HEMOGLOBIN (BEAKER) (test wrfw=009) 9.0 GM/DL 11.2-15.7 HEMATOCRIT (BEAKER) (test xzxx=938) 30.3 % 34.1-44.9 MEAN CORPUSCULAR VOLUME (BEAKER) (test pzbu=807) 102.0 fL 79.4-94.8 MEAN CORPUSCULAR HEMOGLOBIN (BEAKER) (test 30.3 pg 25.6-32.2 osps=273) MEAN CORPUSCULAR HEMOGLOBIN CONC (BEAKER) (test 29.7 GM/DL 32.2-35.5 tzwq=590) RED CELL DISTRIBUTION WIDTH (BEAKER) (test 12.7 % 11.7-14.4 szkk=350) PLATELET COUNT (BEAKER) (test nqsr=563) 451 K/CU MM 150-450 MEAN PLATELET VOLUME (BEAKER) (test priy=014) 10.5 fL 9.4-12.3 NUCLEATED RED BLOOD CELLS (BEAKER) (test 0 /100 WBC 0-0 wtxl=264) NEUTROPHILS RELATIVE PERCENT (BEAKER) (test 75 % phfh=076) LYMPHOCYTES RELATIVE PERCENT (BEAKER) (test 11 % picl=004) MONOCYTES RELATIVE PERCENT (BEAKER) (test 8 % cgft=010) EOSINOPHILS RELATIVE PERCENT (BEAKER) (test 3 % opcr=431) BASOPHILS RELATIVE PERCENT (BEAKER) (test 1 % onuj=221) NEUTROPHILS ABSOLUTE COUNT (BEAKER) (test 13.48 K/ L 1.56-6.13 bbjx=278) LYMPHOCYTES ABSOLUTE COUNT (BEAKER) (test 2.02 K/ L 1.18-3.74 uifm=969) MONOCYTES ABSOLUTE COUNT (BEAKER) (test 1.44 K/ L 0.24-0.36 mdpt=870) EOSINOPHILS ABSOLUTE COUNT (BEAKER) (test 0.47 K/ L 0.04-0.36 hokl=692) BASOPHILS ABSOLUTE COUNT (BEAKER) (test 0.12 K/ L 0.01-0.08 sweq=256) IMMATURE GRANULOCYTES-RELATIVE PERCENT (BEAKER) 2 % 0-1 (test ibqv=9990) POCT-GLUCOSE [id number] 20:29:00 Test Item Value Reference Range Comments POC-GLUCOSE METER (BEAKER) 108 mg/dL 70-110 TESTED AT [address] (test cxcs=3512) [place] [address] POCT-GLUCOSE [id number] 17:21:00 Test Item Value Reference Range Comments POC-GLUCOSE METER (BEAKER) 165 mg/dL 70-110 TESTED AT [address] (test wfen=6545) [place] [address] POCT-GLUCOSE [id number] 12:50:00 Test Item Value Reference Range Comments POC-GLUCOSE METER (BEAKER) 227 mg/dL 70-110 TESTED AT [address] (test uaxc=1425) [place] [id number] POCT-GLUCOSE [id number] 07:55:00 Test Item Value Reference Range Comments POC-GLUCOSE METER (BEAKER) 291 mg/dL 70-110 TESTED AT [address] (test ufdr=7495) [place] [id number] POCT-GLUCOSE [id number] 07:55:00 Test Item Value Reference Range Comments POC-GLUCOSE METER (BEAKER) 344 mg/dL 70-110 Notified GERARDO MARION/TESTED AT [facility] (test ypea=2645) [address] [place], [place] [id number] BASIC METABOLIC [id number] 07:11:00 Test Item Value Reference Range Comments SODIUM (BEAKER) (test 135 meq/L 136-145 wxhx=965) POTASSIUM (BEAKER) (test 3.5 meq/L 3.5-5.1 dklt=794) CHLORIDE (BEAKER) (test 94 meq/L 98-107 mffv=397) CO2 (BEAKER) (test 24 meq/L 22-29 hhno=050) BLOOD UREA NITROGEN 37 mg/dL 7-21 (BEAKER) (test hujq=411) CREATININE (BEAKER) (test 7.71 mg/dL 0.57-1.25 lhjk=189) GLUCOSE RANDOM (BEAKER) 278 mg/dL 70-105 (test bdpg=653) CALCIUM (BEAKER) (test 9.4 mg/dL 8.4-10.2 dxfc=148) EGFR (BEAKER) (test 5 mL/min/1.73 sq m ESTIMATED GFR IS NOT dzqy=4819) ACCURATE CREATININE CLEARANCE IN PREDICTING GLOMERULAR FILTRATION RATE. ESTIMATED GFR IS NOT APPLICABLE FOR DIALYSIS PATIENTS. VANCOMYCIN LEVEL, [id number] 07:10:00 Test Item Value Reference Range Comments VANCOMYCIN RANDOM (BEAKER) (test odwm=545) 20.5 ug/mL Reference Range: No NormalsPTH, [id number] 07:05:00 Test Item Value Reference Range Comments PARATHYROID HORMONE INTACT (BEAKER) (test 163.0 pg/mL 8.5-72.5 ygfe=947) [id number] 07:04:00 Test Item Value Reference Range Comments PHOSPHORUS (BEAKER) (test uvos=927) 3.9 mg/dL 2.3-4.7 [id number] 07:04:00 Test Item Value Reference Range Comments MAGNESIUM (BEAKER) (test gaio=889) 1.9 mg/dL 1.6-2.6 LACTIC ACID, VENOUS, WHOLE [id number] 06:49:00 Test Item Value Reference Range Comments LACTATE BLOOD VENOUS (2) (BEAKER) (test 2.4 mmol/L 0.5-2.2 pkdv=2041) Effective 07/04/2015: Units/Reference Range ChangeNew: 0.5-2.2 mmol/L Previous: 5 -20 mg/dLCBC W/PLT COUNT & AUTO [id number] 06:43:00 Test Item Value Reference Range Comments WHITE BLOOD CELL COUNT (BEAKER) (test hezf=032) 22.8 K/ L 3.5-10.5 RED BLOOD CELL COUNT (BEAKER) (test ooyz=145) 2.87 M/ L 3.93-5.22 HEMOGLOBIN (BEAKER) (test xtzm=655) 8.7 GM/DL 11.2-15.7 HEMATOCRIT (BEAKER) (test vuzc=453) 28.7 % 34.1-44.9 MEAN CORPUSCULAR VOLUME (BEAKER) (test qeph=260) 100.0 fL 79.4-94.8 MEAN CORPUSCULAR HEMOGLOBIN (BEAKER) (test 30.3 pg 25.6-32.2 levo=513) MEAN CORPUSCULAR HEMOGLOBIN CONC (BEAKER) (test 30.3 GM/DL 32.2-35.5 nyog=377) RED CELL DISTRIBUTION WIDTH (BEAKER) (test 12.6 % 11.7-14.4 noyu=790) PLATELET COUNT (BEAKER) (test gvhd=361) 444 K/CU MM 150-450 MEAN PLATELET VOLUME (BEAKER) (test erbq=082) 10.3 fL 9.4-12.3 NUCLEATED RED BLOOD CELLS (BEAKER) (test 0 /100 WBC 0-0 djtm=222) NEUTROPHILS RELATIVE PERCENT (BEAKER) (test 84 % ydoc=842) LYMPHOCYTES RELATIVE PERCENT (BEAKER) (test 7 % ydja=003) MONOCYTES RELATIVE PERCENT (BEAKER) (test 6 % mdji=162) EOSINOPHILS RELATIVE PERCENT (BEAKER) (test 1 % vjda=806) BASOPHILS RELATIVE PERCENT (BEAKER) (test 0 % dnbp=835) NEUTROPHILS ABSOLUTE COUNT (BEAKER) (test 19.15 K/ L 1.56-6.13 wadh=988) LYMPHOCYTES ABSOLUTE COUNT (BEAKER) (test 1.56 K/ L 1.18-3.74 ytka=714) MONOCYTES ABSOLUTE COUNT (BEAKER) (test 1.28 K/ L 0.24-0.36 agvx=743) EOSINOPHILS ABSOLUTE COUNT (BEAKER) (test 0.28 K/ L 0.04-0.36 famq=780) BASOPHILS ABSOLUTE COUNT (BEAKER) (test 0.08 K/ L 0.01-0.08 tfqj=880) IMMATURE GRANULOCYTES-RELATIVE PERCENT (BEAKER) 2 % 0-1 (test xjui=0698) MR, EXTREMITY, LOWER, WITHOUT CONTRAST, [id number] 21:45:00Scan between ankle and kneeReason for exam:->Right jacobo infection with black eschar with trackingand now septic. Evaluate for deep infectionFINAL REPORT MR, EXTREMITY, LOWER, WITHOUT CONTRAST, RIGHT INDICATION: "Rightshin infection with black eschar with tracking and now septic. Evaluate for deep infection" COMPARISON: Tib-fib x-ray 09/09/2017 09/09/2017 TECHNIQUE: Multiplanar , multisequence MR images of the right tibia and fibula without contrast. FINDINGS: Along the high medial aspect of the leg, there is a thintubular fluid collection in the subcutaneous layer. This small collection extends from the skin surface just below the level of the knee joint and then wraps anterior laterally around the leg where itterminates at the level of the ankle joint and anterior inferior tib-fib syndesmosis. This collection is confined to the subcutaneous layer. No extension into the deep fascia of the leg. No intramuscular or bone marrow edema. IMPRESSION:Thin fluid collection spanning the entire leg from superomedial to inferolateral. This is confined to the subcutaneous layer. No deep soft tissue infection. No drainable fluid collection. Questionable extension to the skin surface superomedially. Signed: Ajith Jackson MDReport Verified Date/Time: 09/14/2017 21:45:20 Reading Location: [address] Reading Room POCT-GLUCOSE [id number] 20:42:00 Test Item Value Reference Range Comments POC-GLUCOSE METER (BEAKER) 115 mg/dL 70-110 TESTED AT [address] (test kpkk=0765) [facility] [address] POCT-GLUCOSE [id number] 19:31:00 Test Item Value Reference Range Comments POC-GLUCOSE METER (BEAKER) 180 mg/dL 70-110 TESTED AT [address] (test evzh=3692) [facility] [address] POCT-GLUCOSE [id number] 19:27:00 Test Item Value Reference Range Comments POC-GLUCOSE METER (BEAKER) 32 mg/dL 70-110 Will Repeat Test/TESTED AT (test rmqc=2930) [address] [address] POCT-GLUCOSE [id number] 11:44:00 Test Item Value Reference Range Comments POC-GLUCOSE METER (BEAKER) 111 mg/dL 70-110 TESTED AT [address] (test efml=9468) [facility] [address] CBC W/PLT COUNT & AUTO [id number] 08:37:00 Test Item Value Reference Range Comments WHITE BLOOD CELL COUNT (BEAKER) (test ztue=935) 33.7 K/ L 3.5-10.5 RED BLOOD CELL COUNT (BEAKER) (test eryl=975) 2.57 M/ L 3.93-5.22 HEMOGLOBIN (BEAKER) (test mdmz=144) 7.8 GM/DL 11.2-15.7 HEMATOCRIT (BEAKER) (test wxjn=850) 25.9 % 34.1-44.9 MEAN CORPUSCULAR VOLUME (BEAKER) (test bohg=511) 100.8 fL 79.4-94.8 MEAN CORPUSCULAR HEMOGLOBIN (BEAKER) (test 30.4 pg 25.6-32.2 zlib=951) MEAN CORPUSCULAR HEMOGLOBIN CONC (BEAKER) (test 30.1 GM/DL 32.2-35.5 abay=056) RED CELL DISTRIBUTION WIDTH (BEAKER) (test 12.4 % 11.7-14.4 dywv=626) PLATELET COUNT (BEAKER) (test uayy=321) 399 K/CU MM 150-450 MEAN PLATELET VOLUME (BEAKER) (test tezx=849) 10.4 fL 9.4-12.3 NUCLEATED RED BLOOD CELLS (BEAKER) (test 0 /100 WBC 0-0 aoor=667) (CELLAVISION MANUAL DIFF)2017-09-14 08:37:00 Test Item Value Reference Range Comments NEUTROPHILS - REL (CELLAVISION)(BEAKER) (test 78 % xhpq=5043) LYMPHOCYTES - REL (CELLAVISION)(BEAKER) (test 9 % bimo=5336) MONOCYTES - REL (CELLAVISION)(BEAKER) (test 2 % yrzd=3347) BANDS - REL (CELLAVISION)(BEAKER) (test 11 % 0-10 xdbz=0500) NEUTROPHILS - ABS (CELLAVISION)(BEAKER) (test 26.29 K/ul 1.56-6.13 pjuc=8696) LYMPHOCYTES - ABS (CELLAVISION)(BEAKER) (test 3.03 K/ul 1.18-3.74 mtdn=0907) MONOCYTES - ABS (CELLAVISION)(BEAKER) (test 0.67 K/uL 0.24-0.36 kjlp=3304) BANDS - ABS (CELLAVISION)(BEAKER) (test 3.71 K/uL 0.00-0.80 dxku=8670) TOTAL COUNTED (BEAKER) (test ihni=5503) 100 RBC MORPHOLOGY (BEAKER) (test uhqg=878) Normal WBC MORPHOLOGY (BEAKER) (test ugyg=665) Normal PLT MORPHOLOGY (BEAKER) (test uudy=846) Normal ARTIFACT (CELLAVISION)(BEAKER) (test qmtp=0654) Present PLATELET CONCENTRATION (CELLAVISION)(BEAKER) Adequate (test wcfx=1089) Received comment: User comments: Slide comments:POCT-GLUCOSE [id number] 07: 51:00 Test Item Value Reference Range Comments POC-GLUCOSE METER (BEAKER) 177 mg/dL 70-110 TESTED AT [facility] [address] [facility] (test vvex=9857) [facility] [address] BASIC METABOLIC [id number] 04:25:00 Test Item Value Reference Range Comments SODIUM (BEAKER) (test 132 meq/L 136-145 ojnp=275) POTASSIUM (BEAKER) (test 3.9 meq/L 3.5-5.1 zert=447) CHLORIDE (BEAKER) (test 95 meq/L 98-107 jyez=618) CO2 (BEAKER) (test 20 meq/L 22-29 wuby=757) BLOOD UREA NITROGEN 37 mg/dL 7-21 (BEAKER) (test wbrk=776) CREATININE (BEAKER) (test 7.86 mg/dL 0.57-1.25 sbuf=530) GLUCOSE RANDOM (BEAKER) 137 mg/dL 70-105 (test knir=141) CALCIUM (BEAKER) (test 9.2 mg/dL 8.4-10.2 ryii=350) EGFR (BEAKER) (test 5 mL/min/1.73 sq m ESTIMATED GFR IS NOT xgmw=1334) ACCURATE CREATININE CLEARANCE IN PREDICTING GLOMERULAR FILTRATION RATE. ESTIMATED GFR IS NOT APPLICABLE FOR DIALYSIS PATIENTS. URINALYSIS W/ REFLEX URINE [id number] 04:24:00 Test Item Value Reference Range Comments COLOR (BEAKER) (test qtjw=538) Yellow CLARITY (BEAKER) (test nmht=888) Clear SPECIFIC GRAVITY UA (BEAKER) (test skgc=453) 1.009 1.001-1.035 PH UA (BEAKER) (test cpri=798) 7.5 5.0-8.0 PROTEIN UA (BEAKER) (test txho=752) 200 mg/dL Negative GLUCOSE UA (BEAKER) (test ruxj=546) 500 mg/dL Negative KETONES UA (BEAKER) (test bzuu=607) Negative Negative BILIRUBIN UA (BEAKER) (test nwip=090) Negative Negative BLOOD UA (BEAKER) (test oyvo=432) Negative Negative NITRITE UA (BEAKER) (test qgxa=142) Negative Negative LEUKOCYTE ESTERASE UA (BEAKER) (test tqie=275) Negative Negative UROBILINOGEN UA (BEAKER) (test vwwt=937) 0.2 mg/dL 0.2-1.0 RBC UA (BEAKER) (test qrwi=225) < /HPF WBC UA (BEAKER) (test atyq=121) 3 /HPF SQUAMOUS EPITHELIAL (BEAKER) (test azwl=883) < /HPF SOURCE(BEAKER) (test fmbi=5755) [id number] 04:23:00 Test Item Value Reference Range Comments PHOSPHORUS (BEAKER) (test kjiw=730) 4.2 mg/dL 2.3-4.7 [id number] 04:23:00 Test Item Value Reference Range Comments MAGNESIUM (BEAKER) (test dxfg=736) 2.1 mg/dL 1.6-2.6 VANCOMYCIN LEVEL, [id number] 04:21:00 Test Item Value Reference Range Comments VANCOMYCIN RANDOM (BEAKER) (test nizx=778) 24.5 ug/mL Reference Range: No NormalsBODY FLUID CELL COUNT WITH [id number] 02: 20:00 Test Item Value Reference Range Comments APPEARANCE FLUID (BEAKER) (test slej=771) Clear Clear COLOR FLUID (BEAKER) (test kagh=114) Colorless Colorless, Straw RBC FLUID (BEAKER) (test owty=076) 0 /cu mm <=1 ADJUSTED WBC FLUID (BEAKER) (test bfmt=0029) 0 /cu mm <=5 LINING CELLS (BEAKER) (test krpz=3601) 0 /cu mm <=1 NEUTROPHILS FLUID (BEAKER) (test hkhr=4762) 0 % LYMPHS FLUID (BEAKER) (test sjxh=056) 0 % MONO/MACROPHAGE FLUID (BEAKER) (test sihs=268) 0 % EOSINOPHILS FLUID (BEAKER) (test ifoq=783) 0 % BASO FLUID (BEAKER) (test igvk=125) 0 % CONTAINER BODY FLUID (BEAKER) (test wibp=3681) EDTA Tube POCT-GLUCOSE [id number] 23:51:00 Test Item Value Reference Range Comments POC-GLUCOSE METER (BEAKER) 171 mg/dL 70-110 TESTED AT [facility] [address] [facility] (test obwc=5857) [place] [address] CBC W/PLT COUNT & AUTO [id number] 19:20:00 Test Item Value Reference Range Comments WHITE BLOOD CELL COUNT (BEAKER) (test secu=454) 35.0 K/ L 3.5-10.5 RED BLOOD CELL COUNT (BEAKER) (test hcsh=817) 2.56 M/ L 3.93-5.22 HEMOGLOBIN (BEAKER) (test imnm=249) 7.8 GM/DL 11.2-15.7 HEMATOCRIT (BEAKER) (test hmsi=970) 25.4 % 34.1-44.9 MEAN CORPUSCULAR VOLUME (BEAKER) (test qqce=852) 99.2 fL 79.4-94.8 MEAN CORPUSCULAR HEMOGLOBIN (BEAKER) (test 30.5 pg 25.6-32.2 xfnz=935) MEAN CORPUSCULAR HEMOGLOBIN CONC (BEAKER) (test 30.7 GM/DL 32.2-35.5 hzjr=560) RED CELL DISTRIBUTION WIDTH (BEAKER) (test 12.4 % 11.7-14.4 xclp=004) PLATELET COUNT (BEAKER) (test jsal=802) 397 K/CU MM 150-450 MEAN PLATELET VOLUME (BEAKER) (test jqkl=657) 10.4 fL 9.4-12.3 NUCLEATED RED BLOOD CELLS (BEAKER) (test 0 /100 WBC 0-0 ipvv=654) (CELLAVISION MANUAL DIFF)2017-09-13 19:20:00 Test Item Value Reference Range Comments NEUTROPHILS - REL (CELLAVISION)(BEAKER) (test 92 % xkru=6564) LYMPHOCYTES - REL (CELLAVISION)(BEAKER) (test 3 % pswr=6315) MONOCYTES - REL (CELLAVISION)(BEAKER) (test 3 % lorn=5942) BASOPHILS - REL (CELLAVISION)(BEAKER) (test 1 % ehbx=8045) ATYPICAL LYMPHOCYTES - REL (CELLAVISION)(BEAKER) 1 % 0-0 (test tgsn=4723) NEUTROPHILS - ABS (CELLAVISION)(BEAKER) (test 32.20 K/ul 1.56-6.13 pino=5633) LYMPHOCYTES - ABS (CELLAVISION)(BEAKER) (test 1.05 K/ul 1.18-3.74 yfql=4778) MONOCYTES - ABS (CELLAVISION)(BEAKER) (test 1.05 K/uL 0.24-0.36 ckdx=4048) BASOPHILS - ABS (CELLAVISION)(BEAKER) (test 0.35 K/uL 0.01-0.08 prua=3707) ATYPICAL LYMPHOCYTES - ABS (CELLAVISION)(BEAKER) 0.35 K/uL 0.00-0.00 (test tnin=7362) TOTAL COUNTED (BEAKER) (test zrsg=7285) 100 MANUAL NRBC PER 100 CELLS (BEAKER) (test 1 /100 WBC 0-0 czdu=1375) WBC MORPHOLOGY (BEAKER) (test wxfh=486) Normal GIANT PLATELETS (BEAKER) (test vjvl=281) Present ANISOCYTOSIS (BEAKER) (test pxzj=334) 1+ few MACROCYTES (BEAKER) (test qqgd=547) 1+ few ARTIFACT (CELLAVISION)(BEAKER) (test gzzv=7563) Present PLATELET CONCENTRATION (CELLAVISION)(BEAKER) Adequate (test upav=6401) Received comment: User comments: Slide comments:BASIC METABOLIC [id number] 18:48:00 Test Item Value Reference Range Comments SODIUM (BEAKER) (test 134 meq/L 136-145 bxkn=364) POTASSIUM (BEAKER) (test 4.1 meq/L 3.5-5.1 bmqo=799) CHLORIDE (BEAKER) (test 97 meq/L 98-107 jmnx=706) CO2 (BEAKER) (test 20 meq/L 22-29 qktf=429) BLOOD UREA NITROGEN 38 mg/dL 7-21 (BEAKER) (test cmoq=547) CREATININE (BEAKER) (test 8.29 mg/dL 0.57-1.25 mixz=589) GLUCOSE RANDOM (BEAKER) 80 mg/dL 70-105 (test hevd=073) CALCIUM (BEAKER) (test 8.9 mg/dL 8.4-10.2 kdqc=199) EGFR (BEAKER) (test 5 mL/min/1.73 sq m ESTIMATED GFR IS NOT lprl=0303) ACCURATE CREATININE CLEARANCE IN PREDICTING GLOMERULAR FILTRATION RATE. ESTIMATED GFR IS NOT APPLICABLE FOR DIALYSIS PATIENTS. POCT-LACTIC ACID, [id number] 18:13:00 Test Item Value Reference Range Comments POC-LACTIC ACID, ARTERIAL 1.7 mmol/L 0.4-1.3 TESTED AT [address] (BEAKER) (test nwed=8930) [place] [address] POCT-BLOOD GASES, [id number] 18:13:00 Test Item Value Reference Range Comments TEMP, CELSIUS-POC (BEAKER) 36.2 (test ihqq=6809) FIO2-POC (BEAKER) (test 21 TESTED AT [address] bqvz=9384) [place] [address] PH, ARTERIAL-POC (BEAKER) 7.454 7.350-7.450 (test vluh=0325) PCO2, ARTERIAL-POC (BEAKER) 36.7 mm Hg 35.0-45.0 (test acpr=2440) PO2, ARTERIAL-POC (BEAKER) 60.0 mm Hg 80.0-90.0 (test gyfr=8009) SO2, ARTERIAL-POC (BEAKER) 93.0 % 96.0-97.0 (test gcgd=0545) HCO3, ARTERIAL-POC (BEAKER) 25.9 meq/L 21.0-29.0 (test idun=3062) BASE EXCESS, ARTERIAL-POC 2.0 meq/L -2.0-3.0 (BEAKER) (test kpcg=7924) [id number] 18:13:00 Test Item Value Reference Range Comments POC-SODIUM (BEAKER) (test 134 meq/L 135-148 TESTED AT [address] ehqi=1632) [place] [address] [id number] 18:13:00 Test Item Value Reference Range Comments POC-POTASSIUM (BEAKER) (test 4.0 meq/L 3.6-5.5 TESTED AT [address] bjzi=4819) [place] [address] [id number] 18:13:00 Test Item Value Reference Range Comments POC-GLUCOSE (BEAKER) (test 80 mg/dL 70-110 TESTED AT [address] fqoe=9447) [place] [address] POCT-CALCIUM [id number] 18:13:00 Test Item Value Reference Range Comments POC-CALCIUM IONIZED (BEAKER) 1.12 mmol/L 1.12-1.27 TESTED AT [address] (test ruix=8920) [place] [address] [id number] 18:13:00 Test Item Value Reference Range Comments POC-HEMATOCRIT (AKER) (test 24 % 36-45 TESTED AT [address] khgi=0302) [place] [address] [id number] 18:13:00 Test Item Value Reference Range Comments POC-HEMOGLOBIN (AKER) 8.2 g/dL 12.0-15.0 TESTED AT [address] (test lxqp=1806) [place] [address]TESTED AT [place] [address] POCT-GLUCOSE [id number] 16:59:00 Test Item Value Reference Range Comments POC-GLUCOSE METER (BEAKER) 81 mg/dL 70-110 TESTED AT [address] (test knbz=5093) [place] [address] POCT-GLUCOSE [id number] 13:53:00 Test Item Value Reference Range Comments POC-GLUCOSE METER (BEAKER) 117 mg/dL 70-110 TESTED AT [address] (test imxw=5589) [place] [address] LACTIC ACID, VENOUS, WHOLE [id number] 13:30:00 Test Item Value Reference Range Comments LACTATE BLOOD VENOUS (2) (BEAKER) (test 1.7 mmol/L 0.5-2.2 eczg=2312) Effective 07/04/2015: Units/Reference Range ChangeNew: 0.5-2.2 mmol/L Previous: 5 -20 mg/dLBLOOD [id number] 11:00:00 Test Item Value Reference Range Comments CULTURE (BEAKER) (test dsnz=8485) No growth in 5 days BLOOD [id number] 11:00:00 Test Item Value Reference Range Comments CULTURE (BEAKER) (test rghh=3928) No growth in 5 days POCT-GLUCOSE [id number] 08:35:00 Test Item Value Reference Range Comments POC-GLUCOSE METER (BEAKER) 286 mg/dL 70-110 TESTED AT [facility] [address] [facility] (test ttpp=8604) [facility] [address] BASIC METABOLIC [id number] 07:40:00 Test Item Value Reference Range Comments SODIUM (BEAKER) (test 134 meq/L 136-145 gwwg=485) POTASSIUM (BEAKER) (test 3.2 meq/L 3.5-5.1 tvoo=170) CHLORIDE (BEAKER) (test 95 meq/L 98-107 zxuf=450) CO2 (BEAKER) (test 23 meq/L 22-29 nkft=429) BLOOD UREA NITROGEN 35 mg/dL 7-21 (BEAKER) (test twvy=553) CREATININE (BEAKER) (test 7.78 mg/dL 0.57-1.25 pwfg=141) GLUCOSE RANDOM (BEAKER) 264 mg/dL 70-105 (test sqbt=528) CALCIUM (BEAKER) (test 9.0 mg/dL 8.4-10.2 qpcj=320) EGFR (BEAKER) (test 5 mL/min/1.73 sq m ESTIMATED GFR IS NOT wboh=1411) ACCURATE CREATININE CLEARANCE IN PREDICTING GLOMERULAR FILTRATION RATE. ESTIMATED GFR IS NOT APPLICABLE FOR DIALYSIS PATIENTS. [id number] 07:34:00 Test Item Value Reference Range Comments PHOSPHORUS (BEAKER) (test rxzp=918) 4.1 mg/dL 2.3-4.7 [id number] 07:34:00 Test Item Value Reference Range Comments MAGNESIUM (BEAKER) (test ggbj=778) 1.8 mg/dL 1.6-2.6 CBC W/PLT COUNT & AUTO [id number] 07:32:00 Test Item Value Reference Range Comments WHITE BLOOD CELL COUNT (BEAKER) (test mrxr=938) 21.0 K/ L 3.5-10.5 RED BLOOD CELL COUNT (BEAKER) (test mmli=462) 2.63 M/ L 3.93-5.22 HEMOGLOBIN (BEAKER) (test utee=316) 7.9 GM/DL 11.2-15.7 HEMATOCRIT (BEAKER) (test ncdt=883) 26.1 % 34.1-44.9 MEAN CORPUSCULAR VOLUME (BEAKER) (test rfnx=705) 99.2 fL 79.4-94.8 MEAN CORPUSCULAR HEMOGLOBIN (BEAKER) (test 30.0 pg 25.6-32.2 stkp=357) MEAN CORPUSCULAR HEMOGLOBIN CONC (BEAKER) (test 30.3 GM/DL 32.2-35.5 ayrc=184) RED CELL DISTRIBUTION WIDTH (BEAKER) (test 12.3 % 11.7-14.4 wlfk=114) PLATELET COUNT (BEAKER) (test cnhs=769) 379 K/CU MM 150-450 MEAN PLATELET VOLUME (BEAKER) (test ypbk=785) 10.8 fL 9.4-12.3 NUCLEATED RED BLOOD CELLS (BEAKER) (test 0 /100 WBC 0-0 uatc=876) NEUTROPHILS RELATIVE PERCENT (BEAKER) (test 82 % jeag=439) LYMPHOCYTES RELATIVE PERCENT (BEAKER) (test 8 % jqxx=927) MONOCYTES RELATIVE PERCENT (BEAKER) (test 7 % dnei=234) EOSINOPHILS RELATIVE PERCENT (BEAKER) (test 2 % wfvd=525) BASOPHILS RELATIVE PERCENT (BEAKER) (test 1 % avrs=269) NEUTROPHILS ABSOLUTE COUNT (BEAKER) (test 17.16 K/ L 1.56-6.13 lfwh=309) LYMPHOCYTES ABSOLUTE COUNT (BEAKER) (test 1.65 K/ L 1.18-3.74 dnzc=990) MONOCYTES ABSOLUTE COUNT (BEAKER) (test 1.44 K/ L 0.24-0.36 qruo=734) EOSINOPHILS ABSOLUTE COUNT (BEAKER) (test 0.34 K/ L 0.04-0.36 ffbq=806) BASOPHILS ABSOLUTE COUNT (BEAKER) (test 0.12 K/ L 0.01-0.08 nrvx=222) IMMATURE GRANULOCYTES-RELATIVE PERCENT (BEAKER) 1 % 0-1 (test xtli=8752) POCT-GLUCOSE [id number] 16:51:00 Test Item Value Reference Range Comments POC-GLUCOSE METER (BEAKER) 106 mg/dL 70-110 TESTED AT [facility] [address] [facility] (test pwuz=7596) [facility] [address] POCT-GLUCOSE [id number] 12:50:00 Test Item Value Reference Range Comments POC-GLUCOSE METER (BEAKER) 106 mg/dL 70-110 TESTED AT [facility] [address] (test xcle=4774) [facility] [address] POCT-GLUCOSE [id number] 08:10:00 Test Item Value Reference Range Comments POC-GLUCOSE METER (BEAKER) 337 mg/dL 70-110 Notified GERARDO MARION/TESTED AT [facility] (test ztnd=7588) [address] [facility] [address] VANCOMYCIN LEVEL, [id number] 06:54:00 Test Item Value Reference Range Comments VANCOMYCIN RANDOM (BEAKER) (test eola=644) 26.6 ug/mL Reference Range: No [id number] 06:51:00 Test Item Value Reference Range Comments PHOSPHORUS (BEAKER) (test ntdx=088) 4.9 mg/dL 2.3-4.7 [id number] 06:51:00 Test Item Value Reference Range Comments MAGNESIUM (BEAKER) (test xtcj=278) 2.0 mg/dL 1.6-2.6 BASIC METABOLIC [id number] 06:51:00 Test Item Value Reference Range Comments SODIUM (BEAKER) (test 135 meq/L 136-145 pjnw=491) POTASSIUM (BEAKER) (test 3.3 meq/L 3.5-5.1 okdi=320) CHLORIDE (BEAKER) (test 94 meq/L 98-107 dlve=994) CO2 (BEAKER) (test 25 meq/L 22-29 kvhr=334) BLOOD UREA NITROGEN 37 mg/dL 7-21 (BEAKER) (test pgav=894) CREATININE (BEAKER) (test 7.91 mg/dL 0.57-1.25 sjnt=522) GLUCOSE RANDOM (BEAKER) 306 mg/dL 70-105 (test yatg=072) CALCIUM (BEAKER) (test 9.1 mg/dL 8.4-10.2 zoqr=966) EGFR (BEAKER) (test 5 mL/min/1.73 sq m ESTIMATED GFR IS NOT irtl=7693) ACCURATE CREATININE CLEARANCE IN PREDICTING GLOMERULAR FILTRATION RATE. ESTIMATED GFR IS NOT APPLICABLE FOR DIALYSIS PATIENTS. CBC W/PLT COUNT & AUTO [id number] 06:43:00 Test Item Value Reference Range Comments WHITE BLOOD CELL COUNT (BEAKER) (test mzwn=140) 13.7 K/ L 3.5-10.5 RED BLOOD CELL COUNT (BEAKER) (test irbm=046) 2.55 M/ L 3.93-5.22 HEMOGLOBIN (BEAKER) (test uczl=668) 7.7 GM/DL 11.2-15.7 HEMATOCRIT (BEAKER) (test eprm=010) 24.9 % 34.1-44.9 MEAN CORPUSCULAR VOLUME (BEAKER) (test vife=985) 97.6 fL 79.4-94.8 MEAN CORPUSCULAR HEMOGLOBIN (BEAKER) (test 30.2 pg 25.6-32.2 ldxu=516) MEAN CORPUSCULAR HEMOGLOBIN CONC (BEAKER) (test 30.9 GM/DL 32.2-35.5 xleu=458) RED CELL DISTRIBUTION WIDTH (BEAKER) (test 12.1 % 11.7-14.4 pteh=045) PLATELET COUNT (BEAKER) (test kphh=077) 322 K/CU MM 150-450 MEAN PLATELET VOLUME (BEAKER) (test cail=163) 10.6 fL 9.4-12.3 NUCLEATED RED BLOOD CELLS (BEAKER) (test 0 /100 WBC 0-0 uggj=173) NEUTROPHILS RELATIVE PERCENT (BEAKER) (test 77 % fvfn=385) LYMPHOCYTES RELATIVE PERCENT (BEAKER) (test 11 % nquv=122) MONOCYTES RELATIVE PERCENT (BEAKER) (test 8 % qkto=326) EOSINOPHILS RELATIVE PERCENT (BEAKER) (test 3 % tcyc=206) BASOPHILS RELATIVE PERCENT (BEAKER) (test 1 % plhl=717) NEUTROPHILS ABSOLUTE COUNT (BEAKER) (test 10.53 K/ L 1.56-6.13 jeuc=395) LYMPHOCYTES ABSOLUTE COUNT (BEAKER) (test 1.45 K/ L 1.18-3.74 yqkq=336) MONOCYTES ABSOLUTE COUNT (BEAKER) (test 1.05 K/ L 0.24-0.36 uisd=137) EOSINOPHILS ABSOLUTE COUNT (BEAKER) (test 0.40 K/ L 0.04-0.36 shkj=403) BASOPHILS ABSOLUTE COUNT (BEAKER) (test 0.09 K/ L 0.01-0.08 fzpj=845) IMMATURE GRANULOCYTES-RELATIVE PERCENT (BEAKER) 1 % 0-1 (test ynpm=5032) POCT-GLUCOSE [id number] 21:04:00 Test Item Value Reference Range Comments POC-GLUCOSE METER (BEAKER) 392 mg/dL 70-110 TESTED AT [facility] [address] [facility] (test ulct=4077) [facility] [address] POCT-GLUCOSE [id number] 17:19:00 Test Item Value Reference Range Comments POC-GLUCOSE METER (BEAKER) 164 mg/dL 70-110 TESTED AT [address] (test ndsh=5108) [facility] [address] TISSUE [id number] 14:37:00Surgical Pathology Report Case: [id number] Authorizing Provider: Dilan James MD Collected: 09/10/2017911 Ordering Location: [address] Received: 09/10/2017911 Service Pathologist: Vamsi Berrios MD Specimen: Skin A. RIGHT LOWER EXTREMITY, SKIN PUNCH BIOPSY:- FAT NECROSIS AND ABSCESS- FOCAL LARGE VESSEL VASCULITIS (SEE NOTE)NOTE:The vasculitis may be secondary to the necrosis and abscess. However, correlation with serologic studies is recommended.This case has been discussed with Dr. Satya Miller on 09/11/17, at approximately 2:15 PM. Signing Pathologist Direct Phone Line: [phone] signed by Vamsi Berrios MD on 09/11/2017 at 2:37 PMRule out calciphylaxis.Skin punch biopsyThe specimen is received in a formalin-filled container labeled with the patient's information and labeled "skin punch biopsy" and consists of a brown skin punch biopsy measuring 0.5 cm in diameter x 0.3 cm in depth. The resection margin is inked blue. The specimen is bisected and submitted entirely in A1. CG/ew A. Sections show skin with fat necrosis and mixed inflammatory infiltrate including numerous neutrophils. There is a large vessel with focal neutrophils and fibrinoid change in the vessel wall.The following special studieswere performed on this case and the interpretation is incorporated in the diagnostic report above:GMS - NegativePAS - NegativeGram - NegativeFite - NegativeBODY FLUID CULTURE + GRAM [id number] 11:53:00 Test Item Value Reference Range Comments CULTURE (BEAKER) (test kuje=7143) No growth GRAM STAIN RESULT (BEAKER) (test <1+ WBCs mmyl=5212) GRAM STAIN RESULT (BEAKER) (test No organisms seen lftf=68531) PERITONEAL DIALYSIS EFFLUENT [id number] 11:53:00 Test Item Value Reference Range Comments CULTURE (BEAKER) (test tgyv=6042) No growth GRAM STAIN RESULT (BEAKER) (test <1+ WBCs qtgj=4787) GRAM STAIN RESULT (BEAKER) (test No organisms seen cdcz=29349) POCT-GLUCOSE [id number] 11:04:00 Test Item Value Reference Range Comments POC-GLUCOSE METER (BEAKER) 252 mg/dL 70-110 TESTED AT [facility] [address] [facility] (test sdxq=1514) [facility] [address] VANCOMYCIN LEVEL, [id number] 06:45:00 Test Item Value Reference Range Comments VANCOMYCIN RANDOM (BEAKER) (test fgil=580) 34.7 ug/mL Reference Range: No [id number] 06:40:00 Test Item Value Reference Range Comments PHOSPHORUS (BEAKER) (test ixyh=238) 5.4 mg/dL 2.3-4.7 [id number] 06:40:00 Test Item Value Reference Range Comments MAGNESIUM (BEAKER) (test xscb=861) 2.0 mg/dL 1.6-2.6 C-REACTIVE [id number] 06:40:00 Test Item Value Reference Range Comments C-REACTIVE PROTEIN (BEAKER) (test rbwj=552) 15.69 mg/dL 0.00-0.50 BASIC METABOLIC [id number] 06:40:00 Test Item Value Reference Range Comments SODIUM (BEAKER) (test 134 meq/L 136-145 more=462) POTASSIUM (BEAKER) (test 3.5 meq/L 3.5-5.1 lbhe=682) CHLORIDE (BEAKER) (test 95 meq/L 98-107 dzqv=408) CO2 (BEAKER) (test 22 meq/L 22-29 opgr=737) BLOOD UREA NITROGEN 40 mg/dL 7-21 (BEAKER) (test bkyv=200) CREATININE (BEAKER) (test 8.42 mg/dL 0.57-1.25 pxpc=958) GLUCOSE RANDOM (BEAKER) 383 mg/dL 70-105 (test zbpv=892) CALCIUM (BEAKER) (test 8.6 mg/dL 8.4-10.2 olhh=892) EGFR (BEAKER) (test 5 mL/min/1.73 sq m ESTIMATED GFR IS NOT cnkz=8111) ACCURATE CREATININE CLEARANCE IN PREDICTING GLOMERULAR FILTRATION RATE. ESTIMATED GFR IS NOT APPLICABLE FOR DIALYSIS PATIENTS. CBC W/PLT COUNT & AUTO [id number] 05:45:00 Test Item Value Reference Range Comments WHITE BLOOD CELL COUNT (BEAKER) (test zgsv=495) 14.2 K/ L 3.5-10.5 RED BLOOD CELL COUNT (BEAKER) (test sdne=292) 2.68 M/ L 3.93-5.22 HEMOGLOBIN (BEAKER) (test efbr=806) 8.0 GM/DL 11.2-15.7 HEMATOCRIT (BEAKER) (test cqse=027) 26.3 % 34.1-44.9 MEAN CORPUSCULAR VOLUME (BEAKER) (test agbu=519) 98.1 fL 79.4-94.8 MEAN CORPUSCULAR HEMOGLOBIN (BEAKER) (test 29.9 pg 25.6-32.2 yezh=227) MEAN CORPUSCULAR HEMOGLOBIN CONC (BEAKER) (test 30.4 GM/DL 32.2-35.5 zdef=500) RED CELL DISTRIBUTION WIDTH (BEAKER) (test 12.2 % 11.7-14.4 gthe=410) PLATELET COUNT (BEAKER) (test yofv=766) 301 K/CU MM 150-450 MEAN PLATELET VOLUME (BEAKER) (test hzhy=698) 10.3 fL 9.4-12.3 NUCLEATED RED BLOOD CELLS (BEAKER) (test 0 /100 WBC 0-0 dqxw=474) NEUTROPHILS RELATIVE PERCENT (BEAKER) (test 80 % ugzh=191) LYMPHOCYTES RELATIVE PERCENT (BEAKER) (test 9 % nowt=579) MONOCYTES RELATIVE PERCENT (BEAKER) (test 7 % ujqu=659) EOSINOPHILS RELATIVE PERCENT (BEAKER) (test 2 % zegk=744) BASOPHILS RELATIVE PERCENT (BEAKER) (test 1 % ihmq=487) NEUTROPHILS ABSOLUTE COUNT (BEAKER) (test 11.33 K/ L 1.56-6.13 uqnp=002) LYMPHOCYTES ABSOLUTE COUNT (BEAKER) (test 1.29 K/ L 1.18-3.74 dcaw=673) MONOCYTES ABSOLUTE COUNT (BEAKER) (test 0.99 K/ L 0.24-0.36 iqcx=431) EOSINOPHILS ABSOLUTE COUNT (BEAKER) (test 0.22 K/ L 0.04-0.36 ehdz=883) BASOPHILS ABSOLUTE COUNT (BEAKER) (test 0.10 K/ L 0.01-0.08 elsg=367) IMMATURE GRANULOCYTES-RELATIVE PERCENT (BEAKER) 2 % 0-1 (test zjrw=6283) POCT-GLUCOSE [id number] 20:44:00 Test Item Value Reference Range Comments POC-GLUCOSE METER (BEAKER) 210 mg/dL 70-110 TESTED AT [address] (test hhut=7972) [place] [id number] POCT-GLUCOSE [id number] 17:07:00 Test Item Value Reference Range Comments POC-GLUCOSE METER (BEAKER) 95 mg/dL 70-110 TESTED AT [address] (test ceoi=6287) [place] [id number] POCT-GLUCOSE [id number] 11:57:00 Test Item Value Reference Range Comments POC-GLUCOSE METER (BEAKER) 98 mg/dL 70-110 TESTED AT [address] (test yxgm=8091) [place] [id number] POCT-GLUCOSE [id number] 07:37:00 Test Item Value Reference Range Comments POC-GLUCOSE METER (BEAKER) 217 mg/dL 70-110 TESTED AT [address] (test fyus=1836) [place] [id number] BASIC METABOLIC [id number] 05:38:00 Test Item Value Reference Range Comments SODIUM (BEAKER) (test 134 meq/L 136-145 stmr=259) POTASSIUM (BEAKER) (test 3.7 meq/L 3.5-5.1 wtzn=263) CHLORIDE (BEAKER) (test 97 meq/L 98-107 rkqs=176) CO2 (BEAKER) (test 20 meq/L 22-29 rmtb=172) BLOOD UREA NITROGEN 44 mg/dL 7-21 (BEAKER) (test dsiw=699) CREATININE (BEAKER) (test 9.09 mg/dL 0.57-1.25 bvoo=274) GLUCOSE RANDOM (BEAKER) 299 mg/dL 70-105 (test zegg=985) CALCIUM (BEAKER) (test 8.3 mg/dL 8.4-10.2 bzmk=046) EGFR (BEAKER) (test 4 mL/min/1.73 sq m ESTIMATED GFR IS NOT ddyx=5856) ACCURATE CREATININE CLEARANCE IN PREDICTING GLOMERULAR FILTRATION RATE. ESTIMATED GFR IS NOT APPLICABLE FOR DIALYSIS PATIENTS. [id number] 05:34:00 Test Item Value Reference Range Comments PHOSPHORUS (BEAKER) (test xkfq=210) 6.0 mg/dL 2.3-4.7 [id number] 05:34:00 Test Item Value Reference Range Comments MAGNESIUM (BEAKER) (test ywca=985) 2.0 mg/dL 1.6-2.6 CBC W/PLT COUNT & AUTO [id number] 05:13:00 Test Item Value Reference Range Comments WHITE BLOOD CELL COUNT (BEAKER) (test dwbh=835) 13.7 K/ L 3.5-10.5 RED BLOOD CELL COUNT (BEAKER) (test ybnl=399) 2.53 M/ L 3.93-5.22 HEMOGLOBIN (BEAKER) (test khqj=497) 7.7 GM/DL 11.2-15.7 HEMATOCRIT (BEAKER) (test wdtg=259) 25.0 % 34.1-44.9 MEAN CORPUSCULAR VOLUME (BEAKER) (test qgrs=248) 98.8 fL 79.4-94.8 MEAN CORPUSCULAR HEMOGLOBIN (BEAKER) (test 30.4 pg 25.6-32.2 nffi=005) MEAN CORPUSCULAR HEMOGLOBIN CONC (BEAKER) (test 30.8 GM/DL 32.2-35.5 ypyi=382) RED CELL DISTRIBUTION WIDTH (BEAKER) (test 12.1 % 11.7-14.4 eaqq=358) PLATELET COUNT (BEAKER) (test vzqh=074) 297 K/CU MM 150-450 MEAN PLATELET VOLUME (BEAKER) (test vjmx=091) 10.2 fL 9.4-12.3 NUCLEATED RED BLOOD CELLS (BEAKER) (test 0 /100 WBC 0-0 spzi=811) NEUTROPHILS RELATIVE PERCENT (BEAKER) (test 79 % nhsq=998) LYMPHOCYTES RELATIVE PERCENT (BEAKER) (test 10 % vryx=221) MONOCYTES RELATIVE PERCENT (BEAKER) (test 8 % nzhl=422) EOSINOPHILS RELATIVE PERCENT (BEAKER) (test 3 % wnrd=875) BASOPHILS RELATIVE PERCENT (BEAKER) (test 0 % rvjk=072) NEUTROPHILS ABSOLUTE COUNT (BEAKER) (test 10.82 K/ L 1.56-6.13 znjl=697) LYMPHOCYTES ABSOLUTE COUNT (BEAKER) (test 1.31 K/ L 1.18-3.74 ounk=158) MONOCYTES ABSOLUTE COUNT (BEAKER) (test 1.02 K/ L 0.24-0.36 wgjg=922) EOSINOPHILS ABSOLUTE COUNT (BEAKER) (test 0.36 K/ L 0.04-0.36 azzw=666) BASOPHILS ABSOLUTE COUNT (BEAKER) (test 0.04 K/ L 0.01-0.08 nxbq=369) IMMATURE GRANULOCYTES-RELATIVE PERCENT (BEAKER) 1 % 0-1 (test fkzm=2087) VANCOMYCIN LEVEL, [id number] 05:12:00 Test Item Value Reference Range Comments VANCOMYCIN RANDOM (BEAKER) (test xlzj=654) 13.0 ug/mL Reference Range: No NormalsPOCT-GLUCOSE [id number] 21:46:00 Test Item Value Reference Range Comments POC-GLUCOSE METER (BEAKER) 230 mg/dL 70-110 TESTED AT [facility] [address] [facility] (test jnwv=7330) [facility] [address] POCT-GLUCOSE [id number] 17:15:00 Test Item Value Reference Range Comments POC-GLUCOSE METER (BEAKER) 112 mg/dL 70-110 TESTED AT [address] (test mecm=6767) [facility] [address] RAD, FEMUR, MIN. 2 VIEWS, [id number] 16:31:00Reason for exam:->leg pain , eval specifically for calcifications in ESRD patientFINAL REPORT Three views left foot. Bones are diffusely osteopenic. No specific evidence of fracture, dislocation, or acute destructive lesion. Vascular calcifications are noted.Soft tissues are unremarkable. There is a plantar calcaneal spur. 4. Images two views right leg. Bones are osteopenic. No visible fracture, dislocation, destructive lesion. Vascular calcifications are noted. Soft tissues otherwise unremarkable. Two views four images right femur. No visible fracture, dislocation, destructive lesion. Soft tissues are unremarkable. Signed: Kaylyn Watts VerifiedDate/Time: 09/09/2017 16:31 :47 Reading Location: [address] Consult Reading Room RAD, FOOT, MIN 3 VIEWS, [id number] 16:31:00Reason for exam:->L foot 3rd metatarsal tendernessFINAL REPORT Three views left foot. Bones are diffusely osteopenic. No specific evidence of fracture, dislocation, or acute destructive lesion. Vascular calcifications are noted.Soft tissues are unremarkable. There is a plantar calcaneal spur. 4. Images two views right leg. Bones are osteopenic. No visible fracture, dislocation, destructive lesion. Vascular calcifications are noted. Soft tissues otherwise unremarkable. Two views four images right femur. No visible fracture, dislocation, destructive lesion. Soft tissues are unremarkable. Signed: Kaylyn Watts VerifiedDate/Time: 09/09/2017 16:31:47 Reading Location: [address] Consult Reading Room 04 :31 PMRAD, LEG, [id number] 16:31:00Reason for exam:->leg pain, eval specifically for calcifications in ESRD patientFINAL REPORT Three views left foot. Bones are diffusely osteopenic. No specific evidence of fracture, dislocation, or acute destructive lesion. Vascular calcifications are noted.Soft tissues are unremarkable. There is a plantar calcaneal spur. 4. Images two views right leg. Bones are osteopenic. No visible fracture, dislocation, destructive lesion. Vascular calcifications are noted. Soft tissues otherwise unremarkable. Two views four images right femur. No visible fracture, dislocation, destructive lesion. Soft tissues are unremarkable. Signed: Kaylyn Watts VerifiedDate/Time: 09/09/2017 16:31 :47 Reading Location: [address] Consult Reading Room POCT-GLUCOSE [id number] 12:01:00 Test Item Value Reference Range Comments POC-GLUCOSE METER (BEAKER) 89 mg/dL 70-110 TESTED AT [facility] [address] (test yplj=1626) [facility] [address] POCT-GLUCOSE [id number] 07:46:00 Test Item Value Reference Range Comments POC-GLUCOSE METER (BEAKER) 302 mg/dL 70-110 Notified GERARDO MARION/TESTED AT [facility] (test qwjo=2130) [address] [facility] [address] [id number] 06:07:00 Test Item Value Reference Range Comments FERRITIN (BEAKER) (test oatv=309) 742 ng/mL 5-275 VITAMIN B12 AND [id number] 06:07:00 Test Item Value Reference Range Comments VITAMIN B12 (BEAKER) (test ummq=490) 462 pg/mL 213-816 FOLATE (BEAKER) (test fdvp=147) 3.1 ng/mL >=7.0 BASIC METABOLIC [id number] 05:37:00 Test Item Value Reference Range Comments SODIUM (BEAKER) (test 136 meq/L 136-145 xbzd=013) POTASSIUM (BEAKER) (test 4.2 meq/L 3.5-5.1 oyla=928) CHLORIDE (BEAKER) (test 100 meq/L 98-107 rhub=147) CO2 (BEAKER) (test 17 meq/L 22-29 agrb=822) BLOOD UREA NITROGEN 51 mg/dL 7-21 (BEAKER) (test pnyy=233) CREATININE (BEAKER) (test 9.93 mg/dL 0.57-1.25 qvwo=646) GLUCOSE RANDOM (BEAKER) 274 mg/dL 70-105 (test zdak=372) CALCIUM (BEAKER) (test 8.4 mg/dL 8.4-10.2 jast=020) EGFR (BEAKER) (test 4 mL/min/1.73 sq m ESTIMATED GFR IS NOT ltnq=9189) ACCURATE CREATININE CLEARANCE IN PREDICTING GLOMERULAR FILTRATION RATE. ESTIMATED GFR IS NOT APPLICABLE FOR DIALYSIS PATIENTS. [id number] 05:35:00 Test Item Value Reference Range Comments PHOSPHORUS (BEAKER) (test apzz=234) 7.3 mg/dL 2.3-4.7 [id number] 05:35:00 Test Item Value Reference Range Comments MAGNESIUM (BEAKER) (test lzdh=668) 2.2 mg/dL 1.6-2.6 VANCOMYCIN LEVEL, [id number] 05:34:00 Test Item Value Reference Range Comments VANCOMYCIN RANDOM (BEAKER) (test caze=324) 14.0 ug/mL Reference Range: No NormalsIRON, TIBC, % SAT. (WITHOUT FERRITIN)2017-09-09 05:32 :00 Test Item Value Reference Range Comments IRON (BEAKER) (test oocm=763) 41 ug/dL 40-160 TOTAL IRON BINDING CAPACITY (BEAKER) (test 134 ug/dL 250-450 iewf=217) IRON % SATURATION (2) (BEAKER) (test cpbp=9413) 31 % 20-55 CBC W/PLT COUNT & AUTO [id number] 05:15:00 Test Item Value Reference Range Comments WHITE BLOOD CELL COUNT (BEAKER) (test xnus=028) 15.3 K/ L 3.5-10.5 RED BLOOD CELL COUNT (BEAKER) (test toye=823) 2.58 M/ L 3.93-5.22 HEMOGLOBIN (BEAKER) (test daif=585) 7.9 GM/DL 11.2-15.7 HEMATOCRIT (BEAKER) (test yivm=878) 25.7 % 34.1-44.9 MEAN CORPUSCULAR VOLUME (BEAKER) (test flbm=663) 99.6 fL 79.4-94.8 MEAN CORPUSCULAR HEMOGLOBIN (BEAKER) (test 30.6 pg 25.6-32.2 lzfw=035) MEAN CORPUSCULAR HEMOGLOBIN CONC (BEAKER) (test 30.7 GM/DL 32.2-35.5 uhof=913) RED CELL DISTRIBUTION WIDTH (BEAKER) (test 12.1 % 11.7-14.4 xkga=268) PLATELET COUNT (BEAKER) (test yjjv=444) 330 K/CU MM 150-450 MEAN PLATELET VOLUME (BEAKER) (test jjrq=232) 10.2 fL 9.4-12.3 NUCLEATED RED BLOOD CELLS (BEAKER) (test 0 /100 WBC 0-0 zybr=143) NEUTROPHILS RELATIVE PERCENT (BEAKER) (test 84 % ipip=644) LYMPHOCYTES RELATIVE PERCENT (BEAKER) (test 7 % mphn=287) MONOCYTES RELATIVE PERCENT (BEAKER) (test 6 % kqwf=023) EOSINOPHILS RELATIVE PERCENT (BEAKER) (test 1 % kupz=837) BASOPHILS RELATIVE PERCENT (BEAKER) (test 1 % lyac=198) NEUTROPHILS ABSOLUTE COUNT (BEAKER) (test 12.80 K/ L 1.56-6.13 tyuk=604) LYMPHOCYTES ABSOLUTE COUNT (BEAKER) (test 1.10 K/ L 1.18-3.74 ztwg=278) MONOCYTES ABSOLUTE COUNT (BEAKER) (test 0.98 K/ L 0.24-0.36 dqil=625) EOSINOPHILS ABSOLUTE COUNT (BEAKER) (test 0.21 K/ L 0.04-0.36 opqz=399) BASOPHILS ABSOLUTE COUNT (BEAKER) (test 0.07 K/ L 0.01-0.08 htlv=000) IMMATURE GRANULOCYTES-RELATIVE PERCENT (BEAKER) 1 % 0-1 (test hcgu=4624) RETICULOCYTE [id number] 05:12:00 Test Item Value Reference Range Comments RETICULOCYTE COUNT PCT (BEAKER) (test fteh=381) 2.3 % 0.5-1.7 BODY FLUID CELL COUNT WITH [id number] 21:50:00 Test Item Value Reference Range Comments APPEARANCE FLUID (BEAKER) (test bwjv=821) Slightly Hazy Clear COLOR FLUID (BEAKER) (test nwjp=764) Straw Colorless, Straw RBC FLUID (BEAKER) (test cika=983) 820 /cu mm <=1 ADJUSTED WBC FLUID (BEAKER) (test twst=9860) 1121 /cu mm <=5 LINING CELLS (BEAKER) (test woas=2297) 0 /cu mm <=1 NEUTROPHILS FLUID (BEAKER) (test sbdt=1910) 34 % LYMPHS FLUID (BEAKER) (test bejj=372) 5 % MONO/MACROPHAGE FLUID (BEAKER) (test 61 % gklk=346) EOSINOPHILS FLUID (BEAKER) (test ueqm=212) 0 % BASO FLUID (BEAKER) (test fjtc=720) 0 % CONTAINER BODY FLUID (BEAKER) (test EDTA Tube zvqz=0612) POCT-GLUCOSE [id number] 17:20:00 Test Item Value Reference Range Comments POC-GLUCOSE METER (BEAKER) 112 mg/dL 70-110 TESTED AT [address] (test xdrl=5581) [place] [address] POCT-GLUCOSE [id number] 16:20:00 Test Item Value Reference Range Comments POC-GLUCOSE METER (BEAKER) 125 mg/dL 70-110 TESTED AT [address] (test mdva=1804) [place] [address] POCT-GLUCOSE [id number] 12:50:00 Test Item Value Reference Range Comments POC-GLUCOSE METER (BEAKER) 132 mg/dL 70-110 TESTED AT [address] (test azip=1921) [place] [address] HEMOGLOBIN [id number] 09:38:00 Test Item Value Reference Range Comments HEMOGLOBIN A1C (BEAKER) (test xnti=685) 9.3 % 4.3-6.1 POCT-GLUCOSE [id number] 08:15:00 Test Item Value Reference Range Comments POC-GLUCOSE METER (BEAKER) 109 mg/dL 70-110 TESTED AT [address] (test wjfl=4583) [place] [address] BASIC METABOLIC [id number] 05:26:00 Test Item Value Reference Range Comments SODIUM (BEAKER) (test 139 meq/L 136-145 kezl=434) POTASSIUM (BEAKER) (test 4.6 meq/L 3.5-5.1 ujnp=580) CHLORIDE (BEAKER) (test 104 meq/L 98-107 xmqu=131) CO2 (BEAKER) (test 17 meq/L 22-29 yjis=849) BLOOD UREA NITROGEN 51 mg/dL 7-21 (BEAKER) (test dewk=940) CREATININE (BEAKER) (test 10.67 mg/dL 0.57-1.25 tzll=033) GLUCOSE RANDOM (BEAKER) 106 mg/dL 70-105 (test ffim=370) CALCIUM (BEAKER) (test 8.0 mg/dL 8.4-10.2 opgw=781) EGFR (BEAKER) (test 4 mL/min/1.73 sq m ESTIMATED GFR IS NOT lrmz=5585) ACCURATE CREATININE CLEARANCE IN PREDICTING GLOMERULAR FILTRATION RATE. ESTIMATED GFR IS NOT APPLICABLE FOR DIALYSIS PATIENTS. [id number] 05:24:00 Test Item Value Reference Range Comments PHOSPHORUS (BEAKER) (test fnnc=663) 8.1 mg/dL 2.3-4.7 [id number] 05:24:00 Test Item Value Reference Range Comments MAGNESIUM (BEAKER) (test egbn=941) 2.3 mg/dL 1.6-2.6 PTH, [id number] 05:22:00 Test Item Value Reference Range Comments PARATHYROID HORMONE INTACT (BEAKER) (test 397.3 pg/mL 8.5-72.5 flwa=452) CBC W/PLT COUNT & AUTO [id number] 05:19:00 Test Item Value Reference Range Comments WHITE BLOOD CELL COUNT (BEAKER) (test npij=148) 15.5 K/ L 3.5-10.5 RED BLOOD CELL COUNT (BEAKER) (test hukw=355) 2.49 M/ L 3.93-5.22 HEMOGLOBIN (BEAKER) (test yikg=748) 7.7 GM/DL 11.2-15.7 HEMATOCRIT (BEAKER) (test ndav=399) 24.8 % 34.1-44.9 MEAN CORPUSCULAR VOLUME (BEAKER) (test cgcf=851) 99.6 fL 79.4-94.8 MEAN CORPUSCULAR HEMOGLOBIN (BEAKER) (test 30.9 pg 25.6-32.2 qqpq=584) MEAN CORPUSCULAR HEMOGLOBIN CONC (BEAKER) (test 31.0 GM/DL 32.2-35.5 xmun=277) RED CELL DISTRIBUTION WIDTH (BEAKER) (test 12.2 % 11.7-14.4 qjmi=492) PLATELET COUNT (BEAKER) (test almh=417) 293 K/CU MM 150-450 MEAN PLATELET VOLUME (BEAKER) (test huhf=563) 9.9 fL 9.4-12.3 NUCLEATED RED BLOOD CELLS (BEAKER) (test 0 /100 WBC 0-0 ddco=271) NEUTROPHILS RELATIVE PERCENT (BEAKER) (test 75 % prkp=125) LYMPHOCYTES RELATIVE PERCENT (BEAKER) (test 15 % hmka=467) MONOCYTES RELATIVE PERCENT (BEAKER) (test 7 % ihri=001) EOSINOPHILS RELATIVE PERCENT (BEAKER) (test 2 % uubm=692) BASOPHILS RELATIVE PERCENT (BEAKER) (test 1 % spnf=468) NEUTROPHILS ABSOLUTE COUNT (BEAKER) (test 11.55 K/ L 1.56-6.13 rrbc=451) LYMPHOCYTES ABSOLUTE COUNT (BEAKER) (test 2.38 K/ L 1.18-3.74 rozg=017) MONOCYTES ABSOLUTE COUNT (BEAKER) (test 1.07 K/ L 0.24-0.36 phvb=482) EOSINOPHILS ABSOLUTE COUNT (BEAKER) (test 0.30 K/ L 0.04-0.36 lasv=436) BASOPHILS ABSOLUTE COUNT (BEAKER) (test 0.07 K/ L 0.01-0.08 vkmp=626) IMMATURE GRANULOCYTES-RELATIVE PERCENT (BEAKER) 1 % 0-1 (test ffbx=4989) VANCOMYCIN LEVEL, [id number] 05:12:00 Test Item Value Reference Range Comments VANCOMYCIN RANDOM (BEAKER) (test zthl=278) 17.0 ug/mL Reference Range: No NormalsPOCT-GLUCOSE [id number] 23:49:00 Test Item Value Reference Range Comments POC-GLUCOSE METER (BEAKER) 124 mg/dL 70-110 TESTED AT [facility] [address] (test giee=8322) [facility] [address]
--- NOTE | 2017-11-12 11:54 | RAD REPORT ---
EXAM DESCRIPTION: CT - Head Brain Wo Cont - 11/12/2017 11:25 am CLINICAL HISTORY: general weakness Drowsiness COMPARISON: Head Brain Wo Cont dated 07/17/2017; HEAD BRAIN W O CONTRAST dated 01/31/2007 TECHNIQUE: All CT scans are performed using dose optimization technique as appropriate and may inclu de automated exposure control or mA/KV adjustment according to patient size. FINDINGS: No intracranial hemorrhage, hydrocephalus or extra-axial fluid collection.Areas of diminis hed density noted in the kiki, suspicious for gliosis from old infarction.Prominent brain atrophy chr onic microvascular ischemic changes are seen. The paranasal sinuses and mastoids are clear. The calvarium is intact. IMPRESSION: No acute intracranial abnormality. If there is continued clinical concern for CVA, MR i maging of the brain would be recommended.
--- NOTE | 2017-11-12 12:22 | RAD REPORT ---
EXAM DESCRIPTION: RAD - Chest Single View - 11/12/2017 11:26 am CLINICAL HISTORY: n/v Chest pain. COMPARISON: Chest Single View dated 09/07/2017; Chest Single View dated 07/17/2017; Chest Single View d ated 07/14/2017; Chest Single View dated 10/19/2016 FINDINGS: Portable technique limits examination quality. The lungs are mildly emphysematous but clear. The heart is normal in size. No displaced fractures. IMPRESSION: Mild COPD.
--- NOTE | 2017-11-12 12:27 | RAD REPORT ---
EXAM DESCRIPTION: CT - Abdomen Pelvis Wo Contrast - 11/12/2017 11:26 am CLINICAL HISTORY: Abdominal pain. N/V/D COMPARISON: Abdomen Pelvis Wo Contrast dated 01/15/2017 TECHNIQUE: CT imaging of the abdomen and pelvis was performed without contrast. Solid organ, bowel a nd vascular assessment is limited due to lack of IV and oral contrast. All CT scans are performed using dose optimization technique as appropriate and may include automated exposure control or mA/KV adjustment according to patient size. FINDINGS: The lower lung montes are clear. Calcified lesion in this liver is unchanged. Trace free fluid is seen along the hepatic edge with tin y air bubbles present within the fluid. Patient has a shunt tube which coils in the right lower quadr ant. The spleen, pancreas, adrenal glands are normal. Mild atrophy of both kidneys present. Heavy atherosc lerosis. The appendix is normal. The osseous structures are within normal limits. IMPRESSION: Mild free fluid is seen along the hepatic edge and in the pelvis. Shunt tube is coiled i n the right lower quadrant. No acute finding is evident. A limited non-contrast examination was performed as detailed.
[2017-11-12] MEDS ORDERED: NA CHLORIDE 0.9% 250 ML ONE (12:29)
[2017-11-12] MEDS ORDERED: FAMOTIDINE 20 MG/2 ML VIAL IV ONE (12:29)
[2017-11-12] MEDS ORDERED: ONDANSETRON 4 MG/2 ML VIAL ONE (12:29)
[2017-11-12 13:16] LABS: Absolute Lymphocytes (CBC) 1.7 K/uL (0.7-4.9); Absolute Monocytes 0.9 K/uL (0.1-1.3); Absolute Neutrophil 7.8 K/uL (1.8-8.0); Basophils % 1.1 % (0-1.3); Eosinophils % 1.5 % (0-4.4); Hematocrit 23.5 % (36.0-45.0); Lymphocytes % 15.6 % (15.3-44.8); MCV 95.2 fL (80-100); MPV 8.3 fL (7.6-11.3); Monocytes % 8.4 % (3.3-12.3); RBC Red Blood Cell Count 2.47 M/uL (3.86-4.86)
[2017-11-12 13:29] LABS: Protime INR 1.03
[2017-11-12 13:45] LABS: ALT/SGPT 9 U/L (12-78); AST/SGOT 8 U/L (15-37); Albumin 2.1 g/dL (3.4-5.0); Alkaline Phosphatase 83 U/L (45-117); Amylase Level 36 U/L (25-115); BUN Blood Urea Nitrogen 41 mg/dL (7-18); Bicarbonate 24 mmol/L (21-32); Bilirubin Direct 0.2 mg/dL (0-0.2); Bilirubin Total 0.3 mg/dL (0.2-1.0); CKMB Creatine Kinase MB < 1.0 ng/mL (0.3-3.6); Creatine Phosphokinase 26 U/L (26-192); Glucose Level 169 mg/dL (74-106); Lipase 111 U/L (73-393); Potassium 4.1 mmol/L (3.5-5.1); Protein, Total 6.8 g/dL (6.4-8.2); Sodium Level 147 mmol/L (136-145); Troponin (Emerg Dept Use Only) 0.02 ng/mL (0.0-0.045)
--- NOTE | 2017-11-12 15:04 | ER ---
Nurse's Notes [facility] Name: Gabrielle White Age: 72 yrs Sex: Female : 1945 Arrival Date: 11/12/2017 Time: 10:41 Bed 15 Private MD: Diagnosis: Dehydration;Nausea and vomiting;Diarrhea, unspecified Presentation: 11/12 10:42 Presenting complaint: EMS states: N/V/D and now generalized weakness x 2 days. Denies ss fever. Transition of care: patient was not received from another setting of care. Onset of symptoms was November 10, 2017. Risk Assessment: Do you want to hurt yourself or someone else? Patient reports no desire to harm self or others. Initial Sepsis Screen: Does the patient meet any 2 criteria? No. Patient's initial sepsis screen is negative. Does the patient have a suspected source of infection? No. Patient's initial sepsis screen is negative. Care prior to arrival: None. 10:42 Method Of Arrival: EMS: [facility] 10:42 Acuity: JESUS 3 ss Historical: - Allergies: 10:43 NKDA; ss - Home Meds: 10:43 docusate sodium 100 mg Oral cap 1 cap once daily [Active]; folic acid 1 mg Oral tab 1 rb1 tab once daily [Active]; sevelamer HCl oral 800 mg oral 2 tabs 3 times per day [Active]; melatonin 3 mg Oral tab nightly [Active]; ropinirole 0.5 mg oral tab 1 tab daily [Active]; Zofran (as hydrochloride) 4 mg Oral tab 1 tabs every 6 hours [Active]; Lantus 100 unit/mL Sub-Q soln 6 units twice a day [Active]; 10:45 pantoprazole 40 mg oral TbEC 1 tab 2 times per day [Active]; Bactrim DS 800-160 mg Oral rb1 tab 1 tab 2 times per day [Active]; calcitriol 0.5 mcg oral cap 1 cap once daily [Active]; Lispro 4 units twice a day [Active]; - PMHx: 10:43 Anemia; CHF; Diabetes - IDDM; Dialysis; Hyperlipidemia; Hypertension; neuropathy; ss Pneumonia; RENAL FAILURE; - PSHx: 10:45 3 \T\ 4th toe amputated on right foot; rb1 - Immunization history:: Adult Immunizations up to date. - Social history:: Smoking status: Patient/guardian denies using tobacco. - Ebola Screening: : Patient denies exposure to infectious person Patient denies travel to an Ebola-affected area in the 21 days before illness onset. Screenin:45 Abuse screen: Denies threats or abuse. Nutritional screening: decreased appetite . rb1 Tuberculosis screening: No symptoms or risk factors identified. Fall Risk None identified. Assessment: 10:45 General: Appears in no apparent distress. comfortable, Behavior is calm, cooperative. rb1 Pain: Complains of pain in back of neck Pain currently is 8 out of 10 on a pain scale. Pain began this morning. Neuro: Level of Consciousness is awake, alert, obeys commands, Oriented to person, place, time, situation. Cardiovascular: Capillary refill < 3 seconds is brisk in bilateral fingers. Respiratory: Airway is patent Respiratory effort is even, unlabored, Respiratory pattern is regular, symmetrical. GI: Abdomen is non-distended, Bowel sounds present X 4 quads. Reports diarrhea, nausea, vomiting, since x 2 days. : No signs and/or symptoms were reported regarding the genitourinary system. Derm: Skin is dry, Skin is normal, Skin temperature is warm. 12:38 Reassessment: Patient appears in no apparent distress at this time. Lab is at bedside. rb1 daughter is at bedside. 13:30 Reassessment: Patient appears in no apparent distress at this time. Patient and/or rb1 family updated on plan of care and expected duration. Pain level reassessed. Patient is alert, oriented x 3, equal unlabored respirations, skin warm/dry/pink. 14:30 Reassessment: Patient appears in no apparent distress at this time. No changes from rb1 previously documented assessment. Daughter at bedside. 15:30 Reassessment: No changes from previously documented assessment. Patient and/or family rb1 updated on plan of care and expected duration. Pain level reassessed. Patient is alert, oriented x 3, equal unlabored respirations, skin warm/dry/pink. Daughter left to go home to pick her children up from school. Pt. has her telephone number if the daughter is needed. 16:30 Reassessment: Patient appears in no apparent distress at this time. No changes from rb1 previously documented assessment. daughter has not returned yet. 17:03 Reassessment: Patient appears in no apparent distress at this time. Patient and/or rb1 family updated on plan of care and expected duration. Pain level reassessed. Patient is alert, oriented x 3, equal unlabored respirations, skin warm/dry/pink. 17:28 Reassessment: Called to give report, but Jerel was in a pt. room starting an IV and will rb1 call me back. 17:55 Reassessment: Called report to GERARDO Beltrán. Information from the [facility] was given. All rb1 questions asked and answered. 18:05 Reassessment: Pt. transfer to the floor delayed due to pt and family wanting to talk to rb1 the provider. Provider notified. 18:37 Reassessment: Patient appears in no apparent distress at this time. Patient and/or rb1 family updated on plan of care and expected duration. Pain level reassessed. Patient is alert, oriented x 3, equal unlabored respirations, skin warm/dry/pink. Daughter at bedside. Vital Signs: 10:43 BP 90 / 75; Pulse 89; Resp 16; Temp 98.2(O); Pulse Ox 99% on R/A; ss 11:43 BP 109 / 50; Pulse 80; Resp 17; Pulse Ox 100% on R/A; dh3 12:30 BP 111 / 49; Pulse 79; Resp 18; Pulse Ox 100% on R/A; rb1 13:30 BP 110 / 56; Pulse 79; Resp 19; Pulse Ox 98% on R/A; rb1 14:00 BP 121 / 53; Pulse 80; Resp 17; Pulse Ox 98% on R/A; rb1 15:00 BP 135 / 56; Pulse 82; Resp 19; Pulse Ox 98% on R/A; rb1 16:00 BP 117 / 52; Pulse 79; Resp 17; Pulse Ox 98% on R/A; rb1 16:39 BP 107 / 57; Pulse 75; Resp 19; Pulse Ox 100% ; rb1 17:29 BP 115 / 57; Pulse 75; Resp 17; Pulse Ox 98% ; rb1 18:28 BP 114 / 59; Pulse 74; Resp 17; Pulse Ox 99% on R/A; rb1 ED Course: 10:41 Patient arrived in ED. ss 10:42 Triage completed. ss 10:43 Arm band placed on right wrist. ss 10:45 Patient has correct armband on for positive identification. Bed in low position. Call rb1 light in reach. Side rails up X2. Pulse ox on. NIBP on. Warm blanket given. 10:50 Milan Guillermo PA is PHCP. cp 10:50 Bertrand Kurtz MD is Attending Physician. cp 10:55 Missed attempt(s): 22 gauge in right antecubital area. rb1 11:22 CT completed. Patient tolerated procedure well. Patient moved to CT via stretcher. sj Patient moved back from CT. 11:23 X-ray completed. Portable x-ray completed in exam room. Patient tolerated procedure jb2 well. 11:25 CT Head Brain wo Cont In Process Unspecified. EDMS 11:25 CT Abd/Pelvis - Without Cont: may give oral contrast if patient will tolerate In EDMS Process Unspecified. 11:26 Chest Single View XRAY In Process Unspecified. EDMS 11:39 Mayra Mathur, RN is Primary Nurse. rb1 12:00 Missed attempt(s): 22 gauge in right antecubital area. Bleeding controlled, band aid aj1 applied, catheter tip intact. 12:05 Missed attempt(s): 22 gauge in right forearm. Bleeding controlled, band aid applied, aj1 catheter tip intact. 12:19 Inserted saline lock: 22 gauge in right upper arm, using aseptic technique. aj1 13:21 Notified Nurse Practitioner and/or Physician Veterinary Medical Officer of a critical lab result(s), hgb dm5 7.7. 15:02 Grace Baker MD is Hospitalizing Provider. cp 18:41 No provider procedures requiring assistance completed. Patient admitted, IV remains in rb1 place. Administered Medications: 12:25 Drug: Zofran 4 mg Route: IVP; Site: right upper arm; rb1 12:50 Follow up: Response: No adverse reaction rb1 12:25 Drug: Pepcid 20 mg Route: IVP; Site: right upper arm; rb1 12:50 Follow up: Response: No adverse reaction rb1 12:25 Drug: NS 0.9% 250 ml Route: IV; Rate: bolus; Site: right upper arm; rb1 13:05 Follow up: IV Status: Completed infusion rb1 15:22 CANCELLED (wrong route): Rocephin - (cefTRIAXone) 1 grams IVPB once over 30 mins; (mix rb1 in 50 mL NS) give after obtaining urine sample 16:59 Drug: Rocephin 1 grams {Note: Was waiting for the pt. daughter to come back. Pt. rb1 refused catheter because she said she doesn't make urine.} Route: IV; Rate: calculated rate; Site: right upper arm; 17:25 Follow up: Response: No adverse reaction; IV Status: Completed infusion rb1 Point of Care Testing: Blood Glucose: 12:36 Blood Glucose: 173 mg/dL; rb1 Ranges: Outcome: 15:03 Decision to Hospitalize by Provider. cp 18:41 Patient left the ED. rb1 18:41 Admitted to Med/surg accompanied by tech, family with patient, via stretcher, room 232, rb1 with chart, Report called to GERARDO Beltrán 18:41 Condition: stable rb1 18:41 Instructed on the need for admit. Signatures: Dispatcher [employer] EDJeane Walker RN RN [email or web address] Emelia Culp RN RN dmBert Castle Susan sj Smirch, Shelby RN RN ss Milan Guillermo PA PA cp Barber, Rebecca, RN RN rb1 Rosalia Walker 3 Corrections: (The following items were deleted from the chart) 12:31 12:19 Inserted saline lock: 22 gauge in left upper arm, using aseptic technique. aj1 aj1
--- NOTE | 2017-11-12 15:06 | EDPHYS ---
Physician Documentation [facility] Name: Gabrielle White Age: 72 yrs Sex: Female : 1945 Arrival Date: 11/12/2017 Time: 10:41 Bed 15 Private MD: ED Physician Bertrand Kurtz HPI: 11/12 10:51 This 72 yrs old Female presents to ER via EMS with complaints of cp Nausea/Vomiting/Diarrhea. 10:51 The patient presents to the emergency department with nausea, that is moderate, cp vomiting, that is intermittent, diarrhea, that is intermittent, abdominal pain, of the abdomen diffusely. 10:51 Onset: The symptoms/episode began/occurred 2 day(s) ago. Possible causes: antibiotics, cp Bactrim. Associated signs and symptoms: Pertinent positives: abdominal pain, anorexia, general weakness, Pertinent negatives: constipation, dysuria, fever, GI bleeding. Severity of symptoms: in the emergency department the symptoms are unchanged despite home interventions. Historical: - Allergies: 10:43 NKDA; ss - Home Meds: 10:43 docusate sodium 100 mg Oral cap 1 cap once daily [Active]; folic acid 1 mg Oral tab 1 rb1 tab once daily [Active]; sevelamer HCl oral 800 mg oral 2 tabs 3 times per day [Active]; melatonin 3 mg Oral tab nightly [Active]; ropinirole 0.5 mg oral tab 1 tab daily [Active]; Zofran (as hydrochloride) 4 mg Oral tab 1 tabs every 6 hours [Active]; Lantus 100 unit/mL Sub-Q soln 6 units twice a day [Active]; 10:45 pantoprazole 40 mg oral TbEC 1 tab 2 times per day [Active]; Bactrim DS 800-160 mg Oral rb1 tab 1 tab 2 times per day [Active]; calcitriol 0.5 mcg oral cap 1 cap once daily [Active]; Lispro 4 units twice a day [Active]; - PMHx: 10:43 Anemia; CHF; Diabetes - IDDM; Dialysis; Hyperlipidemia; Hypertension; neuropathy; ss Pneumonia; RENAL FAILURE; - PSHx: 10:45 3 \T\ 4th toe amputated on right foot; rb1 - Immunization history:: Adult Immunizations up to date. - Social history:: Smoking status: Patient/guardian denies using tobacco. - Ebola Screening: : Patient denies exposure to infectious person Patient denies travel to an Ebola-affected area in the 21 days before illness onset. ROS: 11:00 Constitutional: Positive for poor PO intake, Negative for body aches, chills, fever. cp 11:00 Eyes: Negative for injury, pain, redness, and discharge. cp 11:00 ENT: Negative for drainage from ear(s), ear pain, sore throat, difficulty swallowing, difficulty handling secretions. 11:00 Cardiovascular: Negative for chest pain, edema, palpitations. 11:00 Respiratory: Negative for cough, shortness of breath, wheezing. 11:00 Abdomen/GI: Positive for abdominal pain, nausea, vomiting, and diarrhea, anorexia, Negative for constipation, black/tarry stool, rectal bleeding. 11:00 Back: Negative for pain at rest, pain with movement, radiated pain. 11:00 : Positive for small amounts, Negative for urinary symptoms. 11:00 Skin: Positive for chronic wounds lower extremities. 11:00 Neuro: Positive for generalized weakness, Negative for altered mental status, dizziness, headache. 11:00 All other systems are negative. Exam: 11:08 Constitutional: The patient appears in no acute distress, alert, awake, cp non-diaphoretic, non-toxic, well developed, frail. 11:08 Head/Face: Normocephalic, atraumatic. cp 11:08 Eyes: Periorbital structures: appear normal, Pupils: equal, round, and reactive to light and accomodation, Extraocular movements: intact throughout, Conjunctiva: normal, no exudate, no injection, Sclera: no appreciated abnormality, Lids and lashes: appear normal, bilaterally. 11:08 ENT: External ear(s): are unremarkable, Ear canal(s): are normal, clear, TM's: bulging, is not appreciated, bilaterally, dullness, bilaterally, erythema, is not appreciated, bilaterally, Nose: is normal, Mouth: Lips: dry, Oral mucosa: dry, Posterior pharynx: Airway: no evidence of obstruction, patent, Tonsils: are normal in appearance, Uvula: midline, swelling, is not appreciated, erythema, is not appreciated, exudate, is not appreciated. 11:08 Neck: ROM/movement: is normal, is supple, without pain, no range of motions limitations, no meningismus, no nuchal rigidity. 11:08 Chest/axilla: Inspection: normal, Palpation: is normal, no crepitus, no tenderness. 11:08 Cardiovascular: Rate: normal, Rhythm: regular, Edema: is not appreciated, JVD: is not appreciated. 11:08 Respiratory: the patient does not display signs of respiratory distress, Respirations: normal, no use of accessory muscles, no retractions, no splinting, no tachypnea, labored breathing, is not present, Breath sounds: are clear throughout, no decreased breath sounds, no stridor, no wheezing. 11:08 Abdomen/GI: Inspection: distension, is not seen, Bowel sounds: active, all quadrants, Palpation: soft, in all quadrants, mild abdominal tenderness, in all quadrants, rebound tenderness, is not appreciated, involuntary guarding, is not appreciated. 11:08 Back: pain, is absent. 11:08 Skin: chronic wounds noted bilateral lower extremities. 11:08 Neuro: Orientation: to person, place \T\ time. Mentation: lucid, able to follow commands, Cerebellar function: is grossly normal, Motor: moves all fours, general weakness w/o focal deficits, Sensation: no obvious gross deficits. Vital Signs: 10:43 BP 90 / 75; Pulse 89; Resp 16; Temp 98.2(O); Pulse Ox 99% on R/A; ss 11:43 BP 109 / 50; Pulse 80; Resp 17; Pulse Ox 100% on R/A; dh3 12:30 BP 111 / 49; Pulse 79; Resp 18; Pulse Ox 100% on R/A; rb1 13:30 BP 110 / 56; Pulse 79; Resp 19; Pulse Ox 98% on R/A; rb1 14:00 BP 121 / 53; Pulse 80; Resp 17; Pulse Ox 98% on R/A; rb1 15:00 BP 135 / 56; Pulse 82; Resp 19; Pulse Ox 98% on R/A; rb1 16:00 BP 117 / 52; Pulse 79; Resp 17; Pulse Ox 98% on R/A; rb1 16:39 BP 107 / 57; Pulse 75; Resp 19; Pulse Ox 100% ; rb1 17:29 BP 115 / 57; Pulse 75; Resp 17; Pulse Ox 98% ; rb1 18:28 BP 114 / 59; Pulse 74; Resp 17; Pulse Ox 99% on R/A; rb1 MDM: 10:51 Patient medically screened. cp 12:00 Differential diagnosis: gastritis, pancreatitis, diverticulitis, viral gastroenteritis, cp gastroenteritis, dehydration, sepsis, electrolyte abnormality. 14:50 Data reviewed: vital signs, nurses notes, lab test result(s), radiologic studies, CT cp scan, plain films. 14:50 Test interpretation: by ED physician or midlevel provider: ECG, plain radiologic cp studies. Counseling: I had a detailed discussion with the patient and/or guardian regarding: the historical points, exam findings, and any diagnostic results supporting the discharge/admit diagnosis, lab results, radiology results. Response to treatment: the patient's symptoms have markedly improved after treatment, and as a result, I will admit patient. 11/12 10:55 Order name: Amylase, Serum; Complete Time: 14:00 cp 11/12 10:55 Order name: Basic Metabolic Panel; Complete Time: 14:00 cp 11/12 14:00 Interpretation: Normal except: NA 147; CL 110; GLUC 169; BUN 41; CRE 10.80; GFR 3. cp 11/12 10:55 Order name: Blood Culture Adult (2) cp 11/12 10:55 Order name: CBC with Diff; Complete Time: 14:00 cp 11/12 10:55 Order name: Ckmb; Complete Time: 14:00 cp 11/12 10:55 Order name: CPK; Complete Time: 14:00 cp 11/12 10:55 Order name: Lactate; Complete Time: 14:00 cp 11/12 10:55 Order name: LFT's; Complete Time: 14:00 cp 11/12 10:55 Order name: Lipase; Complete Time: 14:00 cp 11/12 10:55 Order name: Procalcitonin; Complete Time: 14:00 cp 11/12 10:55 Order name: Protime (+inr); Complete Time: 14:00 cp 11/12 10:55 Order name: Ptt, Activated; Complete Time: 14:00 cp 11/12 10:55 Order name: Troponin (emerg Dept Use Only); Complete Time: 14:00 cp 11/12 14:45 Order name: Occult Blood cp 11/12 10:55 Order name: Chest Single View XRAY; Complete Time: 14:00 cp 11/12 10:55 Order name: Accucheck; Complete Time: 12:37 cp 11/12 10:55 Order name: Cardiac monitoring; Complete Time: 17:00 cp 11/12 10:55 Order name: EKG - Nurse/Tech; Complete Time: 17:01 cp 11/12 10:55 Order name: IV Saline Lock - Large Bore; Complete Time: 12:32 cp 11/12 10:56 Order name: CT Head Brain wo Cont; Complete Time: 14:00 cp 11/12 10:56 Order name: CT Abd/Pelvis - Without Cont: may give oral contrast if patient will cp tolerate; Complete Time: 14:00 11/12 14:45 Order name: Stool Culture 11/12 14:45 Order name: CDIFF 11/12 16:27 Order name: Lactate Sepsis 2 HR Follow-up EDMS 11/12 17:47 Order name: Diet Renal; Complete Time: 17:48 ss 11/12 10:55 Order name: Labs collected and sent; Complete Time: 12:38 cp 11/12 10:55 Order name: O2 Per Protocol; Complete Time: 12:38 cp 11/12 10:55 Order name: O2 Sat Monitoring; Complete Time: 12:38 cp Administered Medications: 12:25 Drug: Zofran 4 mg Route: IVP; Site: right upper arm; rb1 12:50 Follow up: Response: No adverse reaction rb1 12:25 Drug: Pepcid 20 mg Route: IVP; Site: right upper arm; rb1 12:50 Follow up: Response: No adverse reaction rb1 12:25 Drug: NS 0.9% 250 ml Route: IV; Rate: bolus; Site: right upper arm; rb1 13:05 Follow up: IV Status: Completed infusion rb1 15:22 CANCELLED (wrong route): Rocephin - (cefTRIAXone) 1 grams IVPB once over 30 mins; (mix rb1 in 50 mL NS) give after obtaining urine sample 16:59 Drug: Rocephin 1 grams {Note: Was waiting for the pt. daughter to come back. Pt. rb1 refused catheter because she said she doesn't make urine.} Route: IV; Rate: calculated rate; Site: right upper arm; 17:25 Follow up: Response: No adverse reaction; IV Status: Completed infusion rb1 Point of Care Testing: Blood Glucose: 12:36 Blood Glucose: 173 mg/dL; rb1 Ranges: Critical Glucose Levels:Adult <50 mg/dl or >400 mg/dl <40 mg/dl or >180 mg/dl Disposition: 18:51 Co-signature as Attending Physician, Bertrand Kurtz MD. rn Disposition: 11/12/17 15:03 Hospitalization ordered by Grace Baker for Observation. Preliminary diagnosis are Dehydration, Nausea and vomiting, Diarrhea, unspecified. - Bed requested for Telemetry/MedSurg (observation). - Status is Observation. rb1 - Condition is Stable. - Problem is new. - Symptoms have improved. UTI on Admission? No Signatures: Dispatcher [employer] EDMI Adriana Damon RN RN Bertrand Kurtz MD MD rn Smirch, Shelby, RN RN ss Page, Corey, PA PA cp Barber, Rebecca RN RN rb1 Corrections: (The following items were deleted from the chart) 15:22 14:45 Rocephin - (cefTRIAXone) 1 grams IVPB once over 30 mins; (mix in 50 mL NS) give rb1 after obtaining urine sample ordered. cp 15:22 15:20 Rocephin - (cefTRIAXone) 1 grams IVPB once over 30 mins; (mix in 50 mL NS) give rb1 after obtaining urine sample ordered. rb1 16:19 15:03 Hospitalization Ordered by Grace Baker MD for Observation. Preliminary dw diagnosis is Dehydration; Nausea and vomiting; Diarrhea, unspecified. Bed requested for Telemetry/MedSurg (observation). Status is Observation. Condition is Stable. Problem is new. Symptoms have improved. UTI on Admission? No. cp 16:54 14:05 Nair ordered. rb1 17:00 10:55 Urine Dipstick-Ancillary ordered. cp rb1 18:41 16:19 11/12/2017 15:03 Hospitalization Ordered by Grace Baker MD for Observation. rb1 Preliminary diagnosis is Dehydration; Nausea and vomiting; Diarrhea, unspecified. Bed requested for Telemetry/MedSurg (observation). Status is Observation. Condition is Stable. Problem is new. Symptoms have improved. UTI on Admission? No. dw
[2017-11-12] MEDS ORDERED: CEFTRIAXONE/SWI 1gm 1 GM/10 ML SYR ONE (15:24)
[2017-11-12] MEDS ORDERED: ONDANSETRON 4 MG/2 ML VIAL IV PRN (19:19)
[2017-11-12] MEDS: INSULIN -REGULAR HUMAN 50 UNIT/0.5 ML ML SQ SCH ×2 (19:19→21:00)
[2017-11-13] MEDS ORDERED: MIDODRINE HCL 5 MG TABLET PO SCH (05:00)
[2017-11-13] MEDS: INSULIN -REGULAR HUMAN 50 UNIT/0.5 ML ML SQ SCH ×4 (07:30→20:39)
[2017-11-13] MEDS ORDERED: EPOETIN ALFA 10,000 UNIT/ML VIAL SQ SCH (08:00)
[2017-11-13] MEDS ORDERED: EPOETIN ALFA 10,000 UNIT/ML VIAL SQ ONE (08:00)
--- NOTE | 2017-11-13 08:13 | P.HP ---
Certification for Inpatient Patient admitted to: Observation With expected LOS: <2 Midnights Patient will require the following post-hospital care: None Practitioner: I am a practitioner with admitting privileges, knowledge of patient current condition, hospital course, and medical plan of care. Services: Services provided to patient in accordance with Admission requirements found in Title 42 Section 412.3 of the Code of Federal Regulations Patient History Date of Service: 11/12/17 Reason for admission: N/V/D History of Present Illness: H&P DICTATED JOB ID [id number] Allergies No Known Allergies Allergy (Verified 11/12/17 23:26) Home Medications: Calcitrol [Rocaltrol] 0.5 mcg PO DAILY 11/12/17 Docusate Sodium 100 mg PO DAILY 11/12/17 Folic Acid 1 mg PO DAILY 11/12/17 Insulin Glargine Human [Lantus*] 6 units SQ DIRECTED 11/12/17 Melatonin [Melatonin*] 3 mg PO BEDTIME 11/12/17 Ondansetron HCl [Zofran] 4 mg PO Q6H PRN 11/12/17 Pantoprazole Sodium [Protonix] 40 mg PO BID 11/12/17 Ropinirole HCl [Requip] 0.5 mg PO Q24H PRN 11/12/17 Sevelamer HCl [Renagel] 1,600 mg PO TID 11/12/17 Sulfamethoxazole/Trimethoprim [Bactrim Ds Tablet] 1 tab PO BID 11/12/17 - Past Medical/Surgical History Has patient received pneumonia vaccine in the past: Yes Diabetic: Yes -: Right Foot Toe amputation x2 -: HTN -: Hyperlipidemia -: Right Knee Contusion -: IDDM -: left hand I/D August 2013 -: Pneumonia June 2014 -: nightly perineal dialysis -: Left hand infection -: Amputated Right middle toes -: Mass removed on left side of head 1994 - Family History Father Medical History: Hypertension, Diabetes Mother Medical History: Hypertension, Kidney disease Brother Medical History: Hypertension, Diabetes - Social History Smoking Status: Never smoker Alcohol use: No CD- Drugs: No Caffeine use: Yes Place of Residence: Home Review of Systems 10-point ROS is otherwise unremarkable Physical Examination - Vital Signs Temperature: 97.7 F Blood Pressure: 84/34 Pulse: 70 Respirations: 18 Pulse Ox (%): 93 - Studies Laboratory Data (last 24 hrs) 11/12/17 12:38: PT 12.1, INR 1.03, APTT 25.3 11/12/17 12:38: WBC 10.6, Hgb 7.7 L*, Hct 23.5 L, Plt Count 351 11/12/17 12:38: Sodium 147 H, Potassium 4.1, BUN 41 H, Creatinine 10.80 H*, Glucose 169 H, Total Bilirubin 0.3, AST 8 L, ALT 9 L, Alkaline Phosphatase 83, Amylase 36, Lipase 111 Assessment & Plan - Advance Directives Does patient have a Living Will: No Does patient have a Durable POA for Healthcare: No
[2017-11-13 09:56] LABS: Absolute Lymphocytes (CBC) 1.7 K/uL (0.7-4.9); Absolute Monocytes 0.7 K/uL (0.1-1.3); Absolute Neutrophil 4.7 K/uL (1.8-8.0); Basophils % 0.7 % (0-1.3); Eosinophils % 3.4 % (0-4.4); Hematocrit 30.2 % (36.0-45.0); Lymphocytes % 23.3 % (15.3-44.8); MCH 31.1 pg (27.0-35.0); MCV 95.1 fL (80-100); MPV 8.1 fL (7.6-11.3); Monocytes % 9.6 % (3.3-12.3); RBC Red Blood Cell Count 3.18 M/uL (3.86-4.86)
[2017-11-13] MEDS ORDERED: ENOXAPARIN 30 MG/0.3 ML SQ SCH (10:00)
[2017-11-13 11:41] LABS: Albumin 2.3 g/dL (3.4-5.0); Bilirubin Total 0.3 mg/dL (0.2-1.0); Potassium 3.5 mmol/L (3.5-5.1); Protein, Total 7.1 g/dL (6.4-8.2)
[2017-11-13] MEDS ORDERED: D50W 25 GM/50 ML SYRINGE IV PRN (12:00)
[2017-11-13] MEDS ORDERED: GLUCAGON 1 MG/VIAL IM PRN (12:00)
[2017-11-13 12:01] LABS: RBC Red Blood Cell Count 3.23 M/uL (3.86-4.86)
--- NOTE | 2017-11-13 13:41 | P.PN ---
Subjective Date of Service: 11/13/17 Chief Complaint: N/V/D Patient seen and examined at bedside with RN. Chart reviewed. Currently patient is doing well no complaints to offer overnight. Awaiting physical therapy recommendations at this time. Denies having any nausea vomiting at this time as well. Review of Systems 10-point ROS is otherwise unremarkable Physical Examination - Vital Signs Temperature: 97.6 F Blood Pressure: 136/58 Pulse: 75 Respirations: 18 Pulse Ox (%): 94 - Physical Exam General: Alert, In no apparent distress HEENT: Atraumatic, PERRLA, EOMI Neck: Supple, JVD not distended Respiratory: Clear to auscultation bilaterally, Normal air movement Cardiovascular: Regular rate/rhythm, Normal S1 S2 Gastrointestinal: Normal bowel sounds, No tenderness Musculoskeletal: No tenderness Integumentary: No rashes Neurological: Normal speech, Normal tone, Normal affect Lymphatics: No axilla or inguinal lymphadenopathy Urinary: Dialysis catheter (Peritoneal dialysis continued at this time) - Studies Laboratory Data (last 24 hrs) 11/12/17 12:38: Sodium 147 H, Potassium 4.1, BUN 41 H, Creatinine 10.80 H*, Glucose 169 H, Total Bilirubin 0.3, AST 8 L, ALT 9 L, Alkaline Phosphatase 83, Amylase 36, Lipase 111 Microbiology Data (last 24 hrs): 11/12/17 15:55 Blood - Blood Anaerobic Blood Culture - Final Medications List Reviewed: Yes Assessment And Plan - Current Problems (Diagnosis) (1) Generalized weakness Current Visit: Yes Status: Acute Plan: Pt with generalized weakness with N/V. most likely uremic from worsening of kidney function -PT/OT consulted. -Fall precaution given -nephrology consulted. (2) Diabetes Current Visit: No Status: Chronic (3) ESRD (end stage renal disease) Current Visit: No Status: Chronic Plan: Patient currently on peritoneal dialysis at home for total of 8 hr. -patient may benefit from having dialysis at the dialysis center for closer monitoring and adequate removal of the volume and toxins. Will consult Nephrology and will discuss case with them. (4) HTN (hypertension) Current Visit: No Status: Chronic (5) Hyperlipidemia Current Visit: No Status: Chronic Qualifiers: Hyperlipidemia type: unspecified Qualified Code(s): E78.5 - Hyperlipidemia , unspecified - Plan Patient currently is awaiting clinical improvement at this time. Generalized weakness has improved markedly here in the hospital. Will consult nephrology. Will discuss the case with nephrology regarding possibly starting dialysis at the dialysis center versus peritoneal dialysis. Will await nephrology is further recommendations at this time. Discharge Plan: Home Plan to discharge in: 48 Hours - Code Status/Comfort Care Code Status Assessed: Yes Critical Care: No
[2017-11-13 14:39] LABS: Ferritin 802.9 ng/mL (8-388); Folic Acid, (Folate) > 20.0 ng/mL (3.1-17.5)
[2017-11-13] MEDS ORDERED: ROPINIROLE HCL 0.25 MG TAB PO PRN (15:50)
[2017-11-13] MEDS: SEVELAMER CARBONATE 800 MG TABLET PO SCH (16:36)
[2017-11-13] MEDS: ENOXAPARIN 30 MG/0.3 ML SQ SCH (16:36)
--- NOTE | 2017-11-13 17:21 | P.CNS ---
Date of Consult: 11/13/17 Reason for Consult: ESRD Requesting Physician: Grace Baker Chief Complaint: N/V/D History of Present Illness: 72 yo HF CKD, HTN presented to the ER with 1-2 days of moderate, progressive N/ V with associated diarrhea. +Weakness. No modifying fx. Limited HPI/ ROS due to dementia. Allergies No Known Allergies Allergy (Verified 11/12/17 23:26) Home medications list reviewed: Yes Home Medications: Calcitrol [Rocaltrol] 0.5 mcg PO DAILY 11/12/17 Docusate Sodium 100 mg PO DAILY 11/12/17 Folic Acid 1 mg PO DAILY 11/12/17 Insulin Glargine Human [Lantus*] 6 units SQ DIRECTED 11/12/17 Melatonin [Melatonin*] 3 mg PO BEDTIME 11/12/17 Ondansetron HCl [Zofran] 4 mg PO Q6H PRN 11/12/17 Pantoprazole Sodium [Protonix] 40 mg PO BID 11/12/17 Ropinirole HCl [Requip] 0.5 mg PO Q24H PRN 11/12/17 Sevelamer HCl [Renagel] 1,600 mg PO TID 11/12/17 Sulfamethoxazole/Trimethoprim [Bactrim Ds Tablet] 1 tab PO BID 11/12/17 - Past Medical/Surgical History Diabetic: Yes -: Right Foot Toe amputation x2 -: HTN -: Hyperlipidemia -: Right Knee Contusion -: IDDM -: left hand I/D August 2013 -: Pneumonia June 2014 -: nightly perineal dialysis -: Left hand infection -: Amputated Right middle toes -: Mass removed on left side of head 1994 - Family History Father Medical History: Hypertension, Diabetes Mother Medical History: Hypertension, Kidney disease Brother Medical History: Hypertension, Diabetes - Social History Smoking Status: Never smoker Alcohol use: No CD- Drugs: No Caffeine use: Yes Place of Residence: Home Review of Systems 10-point ROS is otherwise unremarkable General: Weakness, Malaise Gastrointestinal: Nausea, Vomiting, Diarrhea Neurological: Weakness Physical Examination Temp Pulse Resp BP Pulse Ox 97.6 F 75 18 136/58 L 94 11/13/17 13:52 11/13/17 13:52 11/13/17 13:52 11/13/17 13:52 11/13/17 13:52 General: In no apparent distress, Cooperative HEENT: Atraumatic, Mucous membr. moist/pink Neck: Supple Respiratory: Clear to auscultation bilaterally Cardiovascular: No edema, Regular rate/rhythm, No rubs Gastrointestinal: Soft and benign, Non-distended, No guarding Musculoskeletal: No clubbing, No contractures Integumentary: Skin breakdown (RLE) Neurological: Normal speech Blood work reviewed in the chart. Na 148; K 3.5; BUN 40; Cr 10.4 Imagings Data: EXAM DESCRIPTION: CT - Abdomen Pelvis Wo Contrast - 11/12/2017 11:26 am CLINICAL HISTORY: Abdominal pain. N/V/D COMPARISON: Abdomen Pelvis Wo Contrast dated 01/15/2017 TECHNIQUE: CT imaging of the abdomen and pelvis was performed without contrast. Solid organ, bowel and vascular assessment is limited due to lack of IV and oral contrast. All CT scans are performed using dose optimization technique as appropriate and may include automated exposure control or mA/KV adjustment according to patient size FINDINGS: The lower lung montes are clear. Calcified lesion in this liver is unchanged. Trace free fluid is seen along the hepatic edge with tiny air bubbles present within the fluid. Patient has a shunt tube which coils in the right lower quadrant. The spleen, pancreas, adrenal glands are normal. Mild atrophy of both kidneys present. Heavy atherosclerosis. The appendix is normal. The osseous structures are within normal limits. IMPRESSION: Mild free fluid is seen along the hepatic edge and in the pelvis. Shunt tube is coiled in the right lower quadrant. No acute finding is evident. Conclusions/Impression: A/ ESRD on HD. HTN with CKD. Diastolic CHF, chronic. Hypernatremia. Hypokalemia. DM II with CKD. Anemia in CKD. ADRIAN/ Secondary HyperPTH. P/ Continue current POC and Medications. Continue PD as ordered. Give Epo. Encourage nutrition. PT as tolerated. Restart home medications as indicated. AM labs. Daily weight. No NSAIDs. Thank you kindly for the consultation.
[2017-11-13] MEDS ORDERED: EPOETIN ALFA 10,000 UNIT/ML SQ ONE (17:27)
--- NOTE | 2017-11-13 20:04 | HP ---
Date of Admission: 11/12/2017 Reason For Admission: Intractable nausea, vomiting, diarrhea, and generalized weakness. History Of Present Illness: This is a 72-year-old female who came to the hospital with intractable n ausea, vomiting, and diarrhea. She has been having generalized weakness for the last 48 hours. She said this started after November 10. Her symptoms gradually have gotten worse so she came to the [facility] for further evaluation. In the ER, she was found to be dehydrated. She is on peritoneal dial ysis and she was uremic with hypernatremic as well. She also had lactic acidosis. She was anemic as well. In the emergency room, she was hypotensive. She was admitted to the hospital for further brionna atment. A 10-point review of systems is unremarkable. Past Medical History: Type 2 diabetes, hypertension, end-stage renal disease on peritoneal dialysis, dyslipidemia, right toe amputation secondary to peripheral arterial disease. Past Surgical History: Amputation of right middle toes, mass removed on the left side of her head, i nfection of the left hand status post I and D. Family History: Has been reviewed. Father had hypertension and diabetes. Social History: Does not smoke, or drink, or do any drugs. Review of Systems: A 10-point review of systems is otherwise unremarkable. Physical Examination: Vital Signs: Temp 98, heart rate 70, respirations 18, blood pressure 90/50, satting 93%. General: The patient is lying in bed, comfortable, no distress. Awake, alert, oriented to person, p lace, time. HEENT: Normocephalic, atraumatic. Pupils are equal and reactive to light. Extraocular muscles inta ct. No JVP. No bruits. Oropharynx pink, moist. No lymphadenopathy. No thyromegaly. TMs normal. Cardiovascular: Regular rate and rhythm. No murmur. Lungs: Clear bilaterally. Abdomen: Soft, nontender, nondistended. Bowel sounds positive. Extremities: No clubbing, no cyanosis, no edema. Neurologic: Cranial nerves 2 through 12 intact. Motor is 5/5. Sensation intact to light touch. Skin: No deformities. Laboratory Data: Have been reviewed. Assessment: 1.The patient with viral gastroenteritis. 2.Anemia secondary to chronic kidney disease. 3.History of hypertension. 4.History of type 2 diabetes. 5.History of peripheral arterial disease. Plan: 1.At this time, monitor H and H. 2.May need to gently hydrate as the patient is hypotensive. 3.Monitor labs closely. 4.Transfuse if hemoglobin continues to drop, keep the patient on GI and DVT prophylaxis. 5.Strict blood pressure and blood sugar monitoring. BRADEN Voice ID: [id number]
[2017-11-13] MEDS: PANTOPRAZOLE 40MG TABLET PO SCH (20:30)
[2017-11-13] MEDS: MELATONIN 3 MG TABLET PO SCH (20:30)
[2017-11-13] MEDS ORDERED: SEVELAMER HCL 1600 MG PO SCH (21:00)
[2017-11-13] MEDS: NEPRO SHAKE 237 ML CAN PO SCH (22:01)
[2017-11-14 05:35] LABS: Absolute Lymphocytes (CBC) 2.1 K/uL (0.7-4.9); Absolute Monocytes 0.9 K/uL (0.1-1.3); Absolute Neutrophil 6.2 K/uL (1.8-8.0); Basophils % 1.1 % (0-1.3); Eosinophils % 2.3 % (0-4.4); Hematocrit 32.4 % (36.0-45.0); Lymphocytes % 21.6 % (15.3-44.8); MCH 30.7 pg (27.0-35.0); MCV 94.4 fL (80-100); MPV 8.4 fL (7.6-11.3); Monocytes % 9.1 % (3.3-12.3); RBC Red Blood Cell Count 3.44 M/uL (3.86-4.86)
[2017-11-14 06:00] LABS: Albumin 2.4 g/dL (3.4-5.0); Bilirubin Total 0.4 mg/dL (0.2-1.0); Potassium 3.7 mmol/L (3.5-5.1); Protein, Total 7.4 g/dL (6.4-8.2)
[2017-11-14 07:29] VITALS: BMI 31.8
[2017-11-14] MEDS: INSULIN -REGULAR HUMAN 50 UNIT/0.5 ML ML SQ SCH ×4 (07:30→21:00)
[2017-11-14] MEDS: NEPRO SHAKE 237 ML CAN PO SCH ×2 (09:00→20:36)
[2017-11-14] MEDS: VITAMIN D 5,000 UNIT CAP PO SCH (11:08)
[2017-11-14] MEDS: DOCUSATE NA 100 MG CAP PO SCH (11:08)
[2017-11-14] MEDS: SEVELAMER CARBONATE 800 MG TABLET PO SCH ×3 (11:08→18:01)
[2017-11-14] MEDS: FOLIC ACID 1 MG TABLET PO SCH (11:09)
[2017-11-14] MEDS: CALCITROL 0.25 MCG CAP PO SCH (11:09)
[2017-11-14] MEDS: PANTOPRAZOLE 40MG TABLET PO SCH ×2 (11:09→20:35)
[2017-11-14] MEDS: SMZ./TMP. 800/160 MG TABLET PO SCH ×2 (12:40→20:35)
--- NOTE | 2017-11-14 16:04 | PN ---
Date of Progress Note: 11/14/2017 Subjective: The patient states that she feels still very weak, unable to the eat. She is complainin g of nausea and vomiting. Physical Examination: Vital Signs: Showing temperature of 97.8, pulse rate of 89, respiratory rate of 17, and blood pressu re 102/49. General: She appears in no acute distress. Lungs: Clear to auscultation. Abdomen: Soft. PD catheter in place. Extremities: Right lower extremity with chronic scarring was noted. Left lower extremity without an y evidence of edema. Laboratory Data: Showing sodium of 143, potassium of 3.7, chloride of 103, BUN of 38, and creatinine of 10.4. CBC showing improved hemoglobin of 10.6 from 7.7 at the time of admission. Wound cultures from the right thigh are still pending, but so far negative. Blood cultures are all p ending at this time. Current Medications: Include Lovenox for DVT prophylaxis, vitamin D, calcitriol, midodrine 5 mg 3 ti mes a day, Requip, sevelamer, pantoprazole. Impression: 1.End-stage renal disease, on peritoneal dialysis. 2.Nausea, vomiting, and weakness, etiology unclear. All blood cultures and other culture reports ar e negative so far. 3.Hyperlipidemia. 4.Bone and mineral disease on peritoneal dialysis. Plan: The patient is weak and has nausea and vomiting. Blood pressure is also running low. We will continue peritoneal dialysis at this time with 1.5% dextrose and we will hold off on doing any furth er ultrafiltration through dialysis at this time. We will plan for dialysis for 10 hours using 1.5% dextrose and 4 or 5 exchanges lasting with the field volume of 2 L and a dwell time of about 1.5 L at this time and monitor her closely. The patient is on midodrine, is not getting any other antibiotic s at this time. Continue to monitor closely and we will go ahead and order some Epogen to maintain h er hemoglobin levels while she remains hospitalized. We will discuss further with her daughter and a lso update her regarding her situation. ANGEL/ZIA Voice ID: [id number] Report ID: [id number]
[2017-11-14] MEDS: INSULIN GLARGINE 100 UNITS/ML SQ SCH (16:30)
--- NOTE | 2017-11-14 16:35 | PN ---
Subjective: Currently the patient lying in bed. She looks comfortable. No chest pain. No abdomina l pain. No fever. No chills. Review of Systems: Otherwise, negative. Physical Examination: Vital Signs: Currently, blood pressure is 102/49, respiratory rate 17, pulse 89, temperature 97.8. General: She is alert and oriented x3. Does not look in any distress. HEENT: Atraumatic, normocephalic. PERRLA. Oral mucosa is moist. Neck: Supple. No JVD. No carotid bruits. Chest: Clear to auscultation. Good air entry. Heart: Regular rate and rhythm. S1, S2 normal. No gallop, murmur, or rub. Abdomen: Soft, nontender. No masses. No hepatosplenomegaly. Positive bowel sounds. Extremities: No clubbing, no edema. No calf tenderness. Neurologic: Grossly intact. Laboratory Data: Showed CBC was normal except hemoglobin 10.6. PT/INR within normal. Chemistry wit hin normal, except for creatinine of 10. BUN of 38. Glucose 219. AST of 10, ALT of 11. Albumin of 2.4. Assessment And Plan: 1.Generalized weakness, improved. The patient will need rehab via physical therapy, and rehab still pending approval. 2.End-stage renal disease. The patient is on peritoneal dialysis at home. Nephrology following. 3.Diabetes mellitus. Glucose slightly elevated to 219 to 176. She is on insulin sliding scale. I will resume her Lantus 6 units subcutaneously. I will check hemoglobin A1c. 4.Hypertension. The patient was actually hypotensive and she was started on midodrine this hospital ization with hemodialysis. 5.Depression, on Zoloft. 6.Anemia. She is on Procrit per Nephrology. 7.Discharge plan to Rehab hopefully when she get approved. Discussed extensively with social science research assistant . DASHA/ZIA Voice ID: [id number] Report ID: [id number]
--- NOTE | 2017-11-14 16:41 | PN ---
Date of Progress Note: 11/14/2017 Addendum: This is an addendum to nephrology progress note. Discussed with the patient's daughter regarding her previous hospitalization. 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 We will go ahead and order Bactrim. She also had some kind of vein procedure done at [facility] and is supposed to follow up with a vascular surgeon. Reviewed records from [facility] and [facility] in detail, but for now, blood pressure has been overall better than before. Continue to monit or her closely and await for culture reports. We will continue to do peritoneal dialysis with 1.5% d extrose with no ultrafiltration at this time. VV/MODL Voice ID: [id number] Report ID: [id number]
[2017-11-14] MEDS: ENOXAPARIN 30 MG/0.3 ML SQ SCH (18:01)
[2017-11-14] MEDS: MELATONIN 3 MG TABLET PO SCH (20:35)
[2017-11-14] MEDS: ACETAMINOPHEN 500 MG TAB PO PRN (22:56)
[2017-11-15 00:15] VITALS: O2SAT 97
[2017-11-15 05:09] LABS: Absolute Monocytes 0.6 K/uL (0.1-1.3); Absolute Neutrophil 5.5 K/uL (1.8-8.0); Basophils % 0.7 % (0-1.3); Eosinophils % 2.3 % (0-4.4); Hematocrit 31.3 % (36.0-45.0); Lymphocytes % 23.7 % (15.3-44.8); MCH 31.1 pg (27.0-35.0); MCV 94.2 fL (80-100); MPV 8.6 fL (7.6-11.3); Monocytes % 7.6 % (3.3-12.3); RBC Red Blood Cell Count 3.32 M/uL (3.86-4.86)
[2017-11-15] MEDS: INSULIN GLARGINE 100 UNITS/ML SQ SCH (06:26)
[2017-11-15] MEDS: INSULIN -REGULAR HUMAN 50 UNIT/0.5 ML ML SQ SCH ×2 (07:30→11:30)
[2017-11-15] MEDS: NEPRO SHAKE 237 ML CAN PO SCH (09:00)
[2017-11-15] MEDS ORDERED: SERTRALINE HCL 50 MG TAB PO SCH (09:00)
[2017-11-15 09:22] LABS: Potassium 3.4 mmol/L (3.5-5.1)
[2017-11-15 09:23] LABS: Albumin 2.2 g/dL (3.4-5.0); Bilirubin Total 0.3 mg/dL (0.2-1.0); Protein, Total 6.9 g/dL (6.4-8.2)
[2017-11-15] MEDS: FOLIC ACID 1 MG TABLET PO SCH (10:36)
[2017-11-15] MEDS: SMZ./TMP. 800/160 MG TABLET PO SCH (10:36)
[2017-11-15] MEDS: SEVELAMER CARBONATE 800 MG TABLET PO SCH ×2 (10:36→14:02)
[2017-11-15] MEDS: DOCUSATE NA 100 MG CAP PO SCH (10:36)
[2017-11-15] MEDS: PANTOPRAZOLE 40MG TABLET PO SCH (10:37)
[2017-11-15] MEDS: CALCITROL 0.25 MCG CAP PO SCH (10:37)
[2017-11-15] MEDS: VITAMIN D 5,000 UNIT CAP PO SCH (10:38)
[2017-11-15] MEDS: ACETAMINOPHEN 500 MG TAB PO PRN (10:41)
[2017-11-15 18:01] VITALS: BP 91/49; TEMP 97.4
--- NOTE | 2017-11-16 13:15 | DS ---
Date of Discharge: 11/15/2017 Discharge Diagnoses: 1.Viral gastroenteritis, resolved. 2.End-stage renal disease, on peritoneal dialysis. 3.Hypertension. 4.Diabetes mellitus. 5.Peripheral vascular disease. 6.Chronic lower extremity cellulitis, on antibiotic. 7.Anemia of renal insufficiency. Consult: Nephrology. Procedure: CT of the abdomen and pelvis was negative except for mild fluid seen along the hepatic ed ge in the pelvis. Shunt tube is coiled in the right lower quadrant. CT of the head was negative. History Of Present Illness: Please refer to Dr. Guo's admission note of November 12. Hospital Course: Initially, the patient presented with generalized weakness, nausea, vomiting and di arrhea. In the ER, the patient had a CT of the abdomen, was unremarkable. She was treated as she fay ve viral enteritis, supported with fluids and antinausea medicine. The patient did much better. Her diarrhea resolved. She received Nephrology consult given her history of end-stage renal disease, an d the patient continue on peritoneal dialysis with 1.5% dextrose with no ultrafiltration. The patien t also has history of Nocardia and according to the daughter, the patient was supposed to be on Bactr im for almost 6 months. So, we were continued on Bactrim. Today, showed acceptance to rehab and she will be discharged today in stable condition. Discharge Condition: Stable. Discharge Diet: Renal discharge. Followup: With the primary care physician next week or after discharge from rehab follow up with [facility] [place] [facility] as directed for peritoneal dialysis. Discharge Activity: As tolerated. Discharge Physical Examination: Vital Signs: Blood pressure is 95/52, respiratory rate 17, pulse 86 , temperature 98.9. General: The patient is alert and oriented x3. Does not look in any distress. HEENT: Atraumatic, normocephalic. PERRLA. Oral mucosa is moist. Neck: Supple. No JVD. Chest: Clear to auscultation. Good air entry. Heart: Regular rate and rhythm S1, S2 normal. No gallop or murmur. Abdomen: Soft, nontender. No masses. Peritoneal dialysis and catheter in place. Extremities: No clubbing or cyanosis or edema. Right lower extremity was chronic scarring noted as before. Discharge Medications: Calcitriol 0.25 mcg 2 capsules daily, Colace 100 mg once a day, folic acid 1 mg once a day, insulin Lantus 6 units once a day, melatonin 3 mg at bedtime, Nepro shake twice a day, Zofran 4 mg as needed for nausea, Protonix 40 mg once a day, Requip 0.5 mg as needed , Zol oft 50 mg once a day, sevelamer 1600 mg 3 times a day, Bactrim 1 tablet orally twice a day as before the [facility]. HUGO Voice ID: [id number] Report ID: [id number]
== END 2017-11-15 17:47 ==
LOC: ER 10:40 → ERHOLD 16:07 → 2ND 18:11
PROVIDERS: ADMIT Family Medicine; ATTEND Hospitalist
DX: A08.4 Viral intestinal infection, unspecified (principal); L03.115 Cellulitis of right lower limb; I13.2 Hypertensive heart and chronic kidney disease with heart failure and with stage 5 chronic kidney disease, or end stage renal disease; E11.22 Type 2 diabetes mellitus with diabetic chronic kidney disease; N18.6 End stage renal disease; I50.32 Chronic diastolic (congestive) heart failure; D63.1 Anemia in chronic kidney disease; E87.6 Hypokalemia; I73.9 Peripheral vascular disease, unspecified
CPT/HCPCS: 36415 ×2; 70450; 71045; 74176; 80048; 80053 ×3; 80076; 82150; 82550; 82553; 82607; 82728; 82746; 82962 ×14; 83540; 83605 ×2; 83690; 84145; 84484; 85025 ×4; 85044; 85610; 85730; 86850; 86900; 86901; 87040 ×2; 87045; 87046; 87070; 87077; 87186; 87205; 87493; 96361; 96365; 96375; 99285; J0696; J1650 ×2; J2405 ×2; Q4081; 96367; J0885

== ENCOUNTER 2018-03-16 12:41 | Inpatient (IN) | payer OTHER ==
--- OUTSIDE RECORDS SUMMARY | 2018-03-16 12:45 | XMS REPORT | Clinical Summary ---
:1945 Author Organization [facility] Address [address] [place] [address] Care Team Providers Name Role Phone Asked, No Pcp Primary Care Provider Unavailable Allergies No Known Allergies Medications Medication Sig Dispensed Refills Start Date End Date Status calcitriol Take 0.5 mcg by 0 Active (ROCALTROL) 0.5 mouth daily. MCG capsule docusate sodium Take 100 mg by 0 Active (COLACE) 100 MG mouth daily. capsule epoetin cindy Inject 10,000 0 Active (EPOGEN) 10,000 Units under the unit/mL injection skin 2 (two) times a week. Thursday, folic acid Take 1 mg by 0 Active (FOLVITE) 1 MG mouth daily. tablet melatonin 3 mg Take 3 mg by 0 Active tablet mouth nightly. pantoprazole Take 40 mg by 0 Active (PROTONIX) 40 MG mouth 2 (two) EC tablet times a day. sevelamer Take 1,600 mg by 0 Active (RENVELA) 800 mg mouth 3 (three) tablet times a day with meals. amLODIPine Take 5 mg by 3 09/25/2016 10/13/19 Discontinued (NORVASC) 5 mg mouth daily. 18 tablet furosemide (LASIX) Take 20 mg by [...] 11/13/2016 10/13/19 Discontinued application 18 topically daily. carvedilol (COREG) Take 12.5 mg by 0 07/21/19 Discontinued 12.5 MG tablet mouth 2 (two) 18 times a day with meals. calcitriol Take 0.25 mcg by 0 10/13/19 Discontinued (ROCALTROL) 0.25 mouth daily. 18 MCG capsule ampicillin Take 500 mg by 0 10/13/19 Discontinued (PRINCIPEN) 500 MG mouth 4 [...] 30 days. insulin lispro Inject 1-8 Units 0 10/23/19 Discontinued (HumaLOG) 100 under the skin 3 18 unit/mL injection (three) times a day before meals. Per Sliding Scale alum-mag Take 30 mL by 0 10/23/19 Discontinued hydroxide-simeth mouth every 6 18 (MAALOX PLUS) (six) hours as 200-200-20 mg/5 mL needed for suspension heartburn. mupirocin Apply 1 0 10/08/2017 10/23/19 Discontinued (BACTROBAN) 2 % application 18 ointment topically 3 (three) times a day. For 7 days, starting on 10/08/2017 sulfamethoxazole-t Take 1 tablet by 0 10/08/2017 10/23/19 Discontinued rimethoprim mouth 2 (two) 18 (BACTRIM DS) times a day. For 800-160 mg per 180 days, tablet starting on 10/08/2017 acetaminophen Take 2 tablets 1 tablet 0 10/22/2017 11/22/19 (TYLENOL) 325 MG (650 mg total) by 18 tablet mouth every 6 (six) hours as needed for moderate pain or fever for up to 30 days. rOPINIRole Take 1 tablet 1 tablet 0 10/22/2017 11/22/19 (REQUIP) 0.5 MG (0.5 mg total) by 18 tablet mouth nightly as needed (LEG CRAMPS) for up to 30 days. ipratropium-albute Take 3 mL by 1 mL 0 10/22/2017 11/22/19 rol (DUO-NEB) nebulization 18 0.5-2.5 mg/mL every 4 (four) nebulizer hours as needed for shortness of breath for up to 30 days. meropenem 500 mg Infuse 500 mg 1 each 0 10/22/2017 11/22/19 in sodium chloride into a venous 18 0.9 % MBP 50 mL catheter daily IVPB for 30 days. insulin lispro Inject 0-5 Units 10 mL 12 10/22/2017 11/22/19 (HumaLOG) 100 under the skin 18 unit/mL injection every 4 (four) hours for 30 days. insulin lispro Inject 4 Units 10 mL 12 10/22/2017 11/22/19 (HumaLOG) 100 under the skin 2 18 unit/mL injection (two) times a day before meals for 30 days. insulin GLARGINE Inject 6 Units 3.6 mL 0 10/22/2017 11/22/19 (LANTUS) 100 under the skin 2 18 unit/mL injection (two) times a day (vial) for 30 days. Active Problems Problem Noted Date Anemia 10/12/2017 PAD (peripheral artery disease) 10/12/2017 Overview: Added automatically from request for surgery [id number] PD catheter dysfunction 10/12/2017 Overview: Added automatically from request for surgery [id number] Leukocytosis 07/18/2017 HTN (hypertension) 07/18/2017 HLD (hyperlipidemia) 07/18/2017 Ischemic stroke 07/17/2017 Peritoneal dialysis catheter dysfunction 12/21/2016 Anemia in chronic kidney disease 12/21/2016 Infection 12/21/2016 Encounters Date Type Specialty Care Team Description 10/22/2017 Orders Only Cardiovascular Odalys Escobar PAD (peripheral M, [place] artery disease) (Primary Dx) 10/21/2017 Anesthesia Event Cardiothoracic Surgery Arielle England 10/20/2017 Prep for Surgery Vascular Surgery Cecilia Obrien MD 10/19/2017 Anesthesia Event Cardiothoracic Surgery Brennen Ovalle MD 10/19/2017 Surgery Cardiothoracic Surgery Cecilia Obrien MD RIGHT LOWER EXTREMITY ARTERIOGRAM WITH SPY, ANGIOPLASTY. 10/19/2017 Telephone Employee [facility] Jose Maria Salazar 10/19/2017 Telephone Employee [facility] Chonghugo Jose Maria 10/16/2017 Orders Only Cardiovascular [place], PAD (peripheral Clara, RN artery disease) (Primary Dx) 10/12/2017 - Hospital Encounter Cardiology Kori Najera Anemia, unspecified type (Primary Dx); 10/22/2017 MD Gemma Syncope and collapse; Robert Leong, ESRD (end stage renal disease); PAD (peripheral artery disease); Peritoneal dialysis catheter dysfunction, initial encounter 09/12/2017 Refill Internal Medicine Audra Puente MD 08/16/2017 Refill Internal Medicine Audra Puente MD 07/17/2017 - Hospital Encounter Neurology Yosvany Fisher, Ischemic stroke ( Primary Dx); 07/20/2017 Peritoneal dialysis catheter dysfunction, initial encounter ; Anemia in stage 5 chronic kidney disease, not on chronic dialysis; Infection after 03/15/2017 Social History Tobacco Use Types Packs/Day Years Used Date Never Smoker Smokeless Tobacco: Never Used Alcohol Use Drinks/Week oz/Week Comments No Sex Assigned at Date Recorded Not on file Job Start Date Occupation Industry Not on file Not on file Not on file Travel History Travel Start Travel End No recent travel history available. Last Filed Vital Signs Vital Sign Reading Time Taken Blood Pressure 160/66 10/22/2017 3:24 PM CDT Pulse 87 10/22/2017 3:24 PM CDT Temperature 36.2 C (97.2 F) 10/22/2017 3:24 PM CDT Respiratory Rate 16 10/22/2017 3:24 PM CDT Oxygen Saturation 96% 10/22/2017 11:42 AM CDT Inhaled Oxygen Concentration - - Weight - - Height 149.9 cm (4' 11") 10/12/2017 5:47 PM CDT Body Mass Index - - Plan of Treatment Health Maintenance Due Date Last Done Comments BREAST CANCER SCREENING 01/26/1994 SHINGLES VACCINES (1 of 2) 01/26/1994 PNEUMOCOCCAL POLYSACCHARIDE VACCINE AGE 65 AND OVER 01/26/2009 PNEUMOCOCCAL-13 01/26/2009 INFLUENZA VACCINE 09/30/2017 COLON CANCER SCREENING 10/18/2027 10/17/2017 Implants Implanted Type Area Care Provider Device Shelf Model / Identifier Expiration Serial / Date Lot Device Vasclr Clsr Baln Cath 10ml Lkng Syr 5fr [employer] Mynxgrip - [id number] Cardiovascular N/A: ACCESS CLOSURE 08/30/2019 [id number] / Implanted: 10/19/2017 (Quantity not on file) Implants N/A INC / [id number] Catheter Cv Powerline Dlmn Al 6fr - [id number] Surgical N/A: BARD ACCESS 04/29/2021 [id number] / Implanted: 12/23/2016 (Quantity not on file) Implants; N/A SYSTEMS / Expanders; [id number] Extenders; Surgical Wires Catheter Aircraft Layout Worker Otw 4fr 150cm [id number] [employer] [id number] / Implanted: Qty: 1 on 10/19/2017 by Cecilia Obrien MD SCIENTIFIC/FELIPE / PHERAL VASCULAR [id number] (MEDI-TECH) Catheter Aircraft Layout Worker Otw 4fr 150cm [id number] [employer] [id number] / Implanted: Qty: 1 on 10/19/2017 by Cecilia Obrien MD SCIENTIFIC/FELIPE / PHERAL VASCULAR [id number] (MEDI-TECH) Catheter Supp Seeker 5fr 135cm Xng W/0.035in Gw BARD PERIPHERAL [id number] / Implanted: Qty: 1 on 10/19/2017 by Cecilia Obrien MD VASCULAR INC / [id number] Procedures Procedure Name Priority Date/Time Associated Comments [...] are in SPECTRAL COLOR DOPPLER the results (54397) section. POC GLUCOSE Routine 10/12/2017 6:21 Results [...] are in SPECTRAL COLOR DOPPLER the results (75703) section. ECG 12-LEAD STAT 07/20/2017 8:22 Results [...] CDT procedure are in the results section. after 03/15/2017 Results POC glucose (10/22/2017 12:06 PM CDT)Only the most recent of83 resultswithin the time period is included. POC glucose 78 65 - 99 mg/dL [facility] DEPARTMENT OF PATHOLOGY AND Comment: GENOMIC MEDICINE [facility] Notified RN Meter ID: [id number] Business Solutions Consultant: Eris Montoya Performing Organization Address City/State/[facility] Phone Number [facility] DEPARTMENT OF PATHOLOGY AND [address] [place] [phone] GENOMIC MEDICINE Smear review (10/22/2017 5:28 AM CDT)Only the most recent of2 resultswithin the time period is included. Platelet slide review Delmar adequate [facility] DEPARTMENT OF PATHOLOGY AND GENOMIC MEDICINE Anisocytosis Moderate [facility] DEPARTMENT OF PATHOLOGY AND GENOMIC MEDICINE Polychromasia Moderate [facility] DEPARTMENT OF PATHOLOGY AND GENOMIC MEDICINE Performing Organization Address [facility] Phone Number [facility] DEPARTMENT OF PATHOLOGY AND [address] [place] [phone] [employer] MEDICINE Estimated GFR (10/22/2017 5:28 AM CDT)Only the most recent of9 resultswithin the time period is included. GFR Non Af Amer 6 (A) mL/min/1.73 m2 [facility] DEPARTMENT OF PATHOLOGY AND GENOMIC MEDICINE GFR Af Amer 7 (A) mL/min/1.73 m2 [facility] DEPARTMENT OF Comment: PATHOLOGY AND GENOMIC [...] Americans. Specimen Plasma specimen Performing Organization Address City/[facility]/Zipcode Phone Number [facility] DEPARTMENT OF PATHOLOGY AND [address] [place] [phone] [facility] Partial thromboplastin time, activated (10/22/2017 5:28 AM CDT)Only the most recent of2 resultswithin the time period is included. PTT 32.3 23.0 - 36.0 sec [facility] DEPARTMENT OF PATHOLOGY Comment: AND GENOMIC MEDICINE PTT therapeutic range for unfractionated heparin is 61.0-112.0 seconds which corresponds to Anti-Xa 0.3-0.7 U/ml. Specimen Blood Performing Organization Address City/[facility] Phone Number [facility] DEPARTMENT OF PATHOLOGY AND [address] [place] [address] Prothrombin time with INR (10/22/2017 5:28 AM CDT)Only the most recent of3 resultswithin the time period is included. Prothrombin time 14.7 12.0 - 15.0 sec [facility] DEPARTMENT OF PATHOLOGY AND GENOMIC MEDICINE INR 1.1 [facility] DEPARTMENT OF Comment: PATHOLOGY AND GENOMIC The International Normalized Ratio (INR) is a therapeutic MEDICINE monitoring tool for patients who are stable on oral anticoagulant therapy. An INR of 2.0-3.0 is suggested for deep vein thrombosis/pulmonary embolism. Specimen Blood Performing Organization Address City/[facility] Phone Number [facility] DEPARTMENT OF PATHOLOGY AND [address] [place] [address] CBC with platelet and differential (10/22/2017 5:28 AM CDT)Only the most recent of10 resultswithin the time period is included. WBC 6.57 4.50 - 11.00 k/uL [facility] DEPARTMENT OF PATHOLOGY AND GENOMIC MEDICINE RBC 2.65 (L) 4.20 - 5.50 m/uL [facility] DEPARTMENT OF PATHOLOGY AND GENOMIC MEDICINE HGB 7.9 (L) 12.0 - 16.0 g/dL [facility] DEPARTMENT OF PATHOLOGY AND GENOMIC MEDICINE HCT 25.7 (L) 37.0 - 47.0 % [facility] DEPARTMENT OF PATHOLOGY AND GENOMIC MEDICINE MCV 97.0 82.0 - 100.0 fL [facility] DEPARTMENT OF PATHOLOGY AND GENOMIC MEDICINE MCH 29.8 27.0 - 34.0 pg [facility] DEPARTMENT OF PATHOLOGY AND GENOMIC MEDICINE MCHC 30.7 (L) 31.0 - 37.0 g/dL [facility] DEPARTMENT OF PATHOLOGY AND GENOMIC MEDICINE RDW - SD 55.0 37.0 - 55.0 fL [facility] DEPARTMENT OF PATHOLOGY AND GENOMIC MEDICINE MPV 10.4 8.8 - 13.2 fL [facility] DEPARTMENT OF PATHOLOGY AND GENOMIC MEDICINE Platelet count 279 150 - 400 k/uL [facility] DEPARTMENT OF PATHOLOGY AND GENOMIC MEDICINE Nucleated RBC 0.30 /100 WBC [facility] DEPARTMENT OF PATHOLOGY AND GENOMIC MEDICINE Neutrophils 66.9 39.0 - 69.0 % [facility] DEPARTMENT OF PATHOLOGY AND GENOMIC MEDICINE Lymphocytes 16.7 (L) 25.0 - 45.0 % [facility] DEPARTMENT OF PATHOLOGY AND GENOMIC MEDICINE Monocytes 11.4 (H) 0.0 - 10.0 % [facility] DEPARTMENT OF PATHOLOGY AND GENOMIC MEDICINE Eosinophils 3.0 0.0 - 5.0 % [facility] DEPARTMENT OF PATHOLOGY AND GENOMIC MEDICINE Basophils 0.6 0.0 - 1.0 % [facility] DEPARTMENT OF PATHOLOGY AND GENOMIC MEDICINE Immature granulocytes 1.4 (H)Comment: 0.0 - 1.0 % [facility] DEPARTMENT OF "Immature PATHOLOGY AND GENOMIC granulocytes" MEDICINE (promyelocytes, myelocytes, metamyelocytes) Specimen Blood Performing Organization Address City/[facility]/Zipcode Phone Number [facility] DEPARTMENT OF PATHOLOGY AND [address] [place] [address] GENOMIC MEDICINE Type and screen (10/22/2017 5:28 AM CDT)Only the most recent of2 resultswithin the time period is included. ABO grouping O [facility] DEPARTMENT OF PATHOLOGY AND GENOMIC MEDICINE Rh type POS [facility] DEPARTMENT OF PATHOLOGY AND GENOMIC MEDICINE Antibody screen (gel) NEG [facility] DEPARTMENT OF PATHOLOGY AND GENOMIC MEDICINE Performing Organization Address City/[facility] Phone Number [facility] DEPARTMENT OF PATHOLOGY AND [address] [place] [phone] GENOMIC MEDICINE Basic metabolic panel (10/22/2017 5:28 AM CDT)Only the most recent of5 resultswithin the time period is included. Sodium 140 135 - 148 mEq/L [facility] DEPARTMENT OF PATHOLOGY AND GENOMIC MEDICINE Potassium 3.7 3.5 - 5.0 mEq/L [facility] DEPARTMENT OF PATHOLOGY AND GENOMIC MEDICINE Chloride 99 98 - 112 mEq/L [facility] DEPARTMENT OF PATHOLOGY AND GENOMIC MEDICINE CO2 25 24 - 31 mEq/L [facility] DEPARTMENT OF PATHOLOGY AND GENOMIC MEDICINE Anion gap 16@ANIO (H) 7 - 15 mEq/L [facility] DEPARTMENT OF PATHOLOGY AND GENOMIC MEDICINE BUN 61 (H) 8 - 23 mg/dL [facility] DEPARTMENT OF PATHOLOGY AND GENOMIC MEDICINE Creatinine 7.0 (H) 0.5 - 0.9 mg/dL [facility] DEPARTMENT OF PATHOLOGY AND GENOMIC MEDICINE Glucose 291 (H) 65 - 99 mg/dL [facility] DEPARTMENT OF PATHOLOGY AND GENOMIC MEDICINE Calcium 8.6 (L) 8.8 - 10.2 mg/dL [facility] DEPARTMENT OF PATHOLOGY AND GENOMIC MEDICINE Specimen Plasma specimen Performing Organization Address City/State/Zipcode Phone Number [facility] DEPARTMENT OF PATHOLOGY AND [address] [place] [phone] GENOMIC MEDICINE Transfuse RBC (10/21/2017 6:44 PM CDT)Only the most recent of2 resultswithin the time period is included.Gram stain only (10/21/2017 10:36 AM CDT)Only the most recent of2 resultswithin the time period is included. Gram stain result Moderate WBC's [facility] DEPARTMENT OF PATHOLOGY No organisms seen AND GENOMIC MEDICINE Comment: Specimen Information Specimen Source: Peritoneal fluid Specimen Site: Not otherwise specified Specimen Peritoneal fluid - Not otherwise specified Performing Organization Address [facility] Hospital[facility] Phone Number [facility] DEPARTMENT OF PATHOLOGY AND [address] [place] [phone] GENOMIC MEDICINE Blood culture, aerobic & anaerobic (10/21/2017 10:36 AM CDT)Only the most recent of7 resultswithin the time period is included. Blood culture isolate No growth after 5 days of incubation. [facility] DEPARTMENT OF Comment: PATHOLOGY AND GENOMIC Specimen Information MEDICINE Specimen Source: Fluid Specimen Site: Peritoneal Specimen Peritoneal Performing Organization Address City/[facility] Phone Number [facility] DEPARTMENT OF PATHOLOGY AND [address] [place] [phone] GENOMIC MEDICINE Cell count and differential, body fluid (10/21/2017 10:35 AM CDT)Only the most recent of2 resultswithin the time period is included. [facility] fluid type PD fluid [facility] DEPARTMENT OF PATHOLOGY AND GENOMIC MEDICINE Color, fluid Pale yellow [facility] DEPARTMENT OF PATHOLOGY AND GENOMIC MEDICINE Appearance, fluid Slightly hazy [facility] DEPARTMENT OF PATHOLOGY AND GENOMIC MEDICINE RBC, fluid SEE COMMENTComment: 1+ /CMM [facility] DEPARTMENT OF (0 - 500 RBC/CMM) PATHOLOGY AND GENOMIC MEDICINE Nucleated cells, fluid 1,303 /CMM [facility] DEPARTMENT OF PATHOLOGY AND GENOMIC MEDICINE Fluid mononuclear cell See Diff [facility] DEPARTMENT OF PATHOLOGY AND GENOMIC MEDICINE Neutrophils, fluid 74 % [facility] DEPARTMENT OF PATHOLOGY AND GENOMIC MEDICINE Lymphocytes, fluid 2 % [facility] DEPARTMENT OF PATHOLOGY AND GENOMIC MEDICINE Eosinophils, fluid 1 % [facility] DEPARTMENT OF PATHOLOGY AND GENOMIC MEDICINE Mesothelial cells, fluid 1 % [facility] DEPARTMENT OF PATHOLOGY AND GENOMIC MEDICINE Macrophages, fluid 22 % [facility] DEPARTMENT OF PATHOLOGY AND GENOMIC MEDICINE Specimen Fluid Performing Organization Address City/State/Zipcode Phone Number [facility] DEPARTMENT OF PATHOLOGY AND [address] [place] [address] [facility] MEDICINE Comprehensive metabolic panel (10/21/2017 4:00 AM CDT)Only the most recent of4 resultswithin the time period is included. Sodium 143 135 - 148 mEq/L [facility] DEPARTMENT OF PATHOLOGY AND GENOMIC MEDICINE Potassium 5.4 (H) 3.5 - 5.0 mEq/L [facility] DEPARTMENT OF PATHOLOGY AND GENOMIC MEDICINE Chloride 105 98 - 112 mEq/L [facility] DEPARTMENT OF PATHOLOGY AND GENOMIC MEDICINE CO2 20 (L) 24 - 31 mEq/L [facility] DEPARTMENT OF PATHOLOGY AND GENOMIC MEDICINE Anion gap 18@ANIO (H) 7 - 15 mEq/L [facility] DEPARTMENT OF PATHOLOGY AND GENOMIC MEDICINE BUN 95 (H) 8 - 23 mg/dL [facility] DEPARTMENT OF PATHOLOGY AND GENOMIC MEDICINE Creatinine 9.5 (H) 0.5 - 0.9 mg/dL [facility] DEPARTMENT OF PATHOLOGY AND GENOMIC MEDICINE Glucose 142 (H) 65 - 99 mg/dL [facility] DEPARTMENT OF PATHOLOGY AND GENOMIC MEDICINE Calcium 8.6 (L) 8.8 - 10.2 mg/dL [facility] DEPARTMENT OF PATHOLOGY AND GENOMIC MEDICINE Protein 5.5 (L) 6.3 - 8.3 g/dL [facility] DEPARTMENT OF Comment: PATHOLOGY AND GENOMIC [place] 4.6-7.0 g/dL MEDICINE 1 week 4.4-7.6 g/dL 7 months-1year5.1-7.3 g/dL 1-2 years5.6-7.5 g/dL >3 years6.0-8.0 g/dL 18-150 6.3-8.3 g/dL Albumin 1.6 (L) 3.5 - 5.0 g/dL [facility] DEPARTMENT OF PATHOLOGY AND GENOMIC MEDICINE A/G ratio 0.4 (L) 0.7 - 3.8 [facility] DEPARTMENT OF PATHOLOGY AND GENOMIC MEDICINE Alkaline phosphatase 164 (H) 35 - 104 U/L [facility] DEPARTMENT OF PATHOLOGY AND GENOMIC MEDICINE AST 15 10 - 35 U/L [facility] DEPARTMENT OF PATHOLOGY AND GENOMIC MEDICINE ALT 7 5 - 50 U/L [facility] DEPARTMENT OF PATHOLOGY AND GENOMIC MEDICINE Total bilirubin <0.2 0.0 - 1.2 mg/dL [facility] DEPARTMENT OF PATHOLOGY AND GENOMIC MEDICINE Specimen Plasma specimen Performing Organization Address City/[facility] Phone Number [facility] DEPARTMENT OF PATHOLOGY AND [address] [place] [address] [facility] Prepare RBC, 1 Units (10/19/2017 6:03 AM CDT) Product name Red Blood Cells -1, [facility] DEPARTMENT OF Leukored PATHOLOGY AND GENOMIC MEDICINE Unit number [id number] [facility] DEPARTMENT OF PATHOLOGY AND GENOMIC MEDICINE Product code [id number] [facility] DEPARTMENT OF PATHOLOGY AND GENOMIC MEDICINE Dispense status Transfused [facility] DEPARTMENT OF PATHOLOGY AND GENOMIC MEDICINE Blood expiration date [facility] DEPARTMENT OF PATHOLOGY AND GENOMIC MEDICINE Blood type code 5100 [facility] DEPARTMENT OF PATHOLOGY AND GENOMIC MEDICINE Blood type O POSITIVE [facility] DEPARTMENT OF PATHOLOGY AND GENOMIC MEDICINE Performing Organization Address [facility] Phone Number [facility] DEPARTMENT OF PATHOLOGY AND [address] [place] [address] [facility] ECG 12 lead (10/18/2017 11:26 AM CDT)Only the most recent of4 resultswithin the time period is included. Ventricular rate 78 [facility] MUSE Atrial rate 78 [facility] MUSE CT interval 154 [facility] MUSE QRSD interval 84 [facility] MUSE QT interval 386 [facility] MUSE QTC interval 440 [facility] MUSE P axis 1 73 [facility] MUSE QRS axis 1 15 [facility] MUSE T wave axis 98 [facility] MUSE EKG impression Normal sinus rhythm-Abnormal QRS-T angle, [facility] MUSE consider primary T wave abnormality-Abnormal ECG-In automated comparison with ECG of 12-OCT-2017 11:52,-QT has shortened- Performing Organization Address City/[facility] Phone Number [facility] MUSE [address] [place] [address] Occult blood, stool (10/17/2017 10:49 PM CDT) Occult blood, stool Negative for occult blood. [facility] DEPARTMENT OF PATHOLOGY Comment: AND GENOMIC MEDICINE Specimen Information Specimen Source: Stool Specimen Site: Nonpreserved Specimen Stool - Nonpreserved Performing Organization Address City/State/Zipcode Phone Number [facility] DEPARTMENT OF PATHOLOGY AND [address] [place] [address] MEDICINE C difficile toxin (10/17/2017 10:49 PM CDT) Clostridium difficile No Clostridium difficle toxin present [facility] DEPARTMENT OF toxin Comment: PATHOLOGY AND GENOMIC Specimen Information MEDICINE Specimen Source: Stool Specimen Site: Nonpreserved Specimen Stool - Nonpreserved Performing Organization Address [facility]/Zipcode Phone Number [facility] DEPARTMENT OF PATHOLOGY AND [address] [place] [address] Cortisol level, AM (10/17/2017 1:00 PM CDT) Cortisol, AM 9 6 - 18 ug/dL [facility] DEPARTMENT OF PATHOLOGY AND GENOMIC MEDICINE Specimen Plasma specimen Performing Organization Address [facility] Phone Number [facility] DEPARTMENT OF PATHOLOGY AND [address] [place] [address] Arterial blood gas (10/16/2017 4:08 PM CDT) pH, arterial 7.40 7.35 - 7.45 [facility] DEPARTMENT OF PATHOLOGY AND GENOMIC MEDICINE pCO2, arterial 44 35 - 45 mmHg [facility] DEPARTMENT OF PATHOLOGY AND GENOMIC MEDICINE pO2, arterial 91 (H) 80 - 90 mmHg [facility] DEPARTMENT OF PATHOLOGY AND GENOMIC MEDICINE Bicarbonate, arterial 26.7 21.0 - 28.0 mmol/L [facility] DEPARTMENT OF PATHOLOGY AND GENOMIC MEDICINE Base excess, arterial 2 -2 - 2 mEq/L [facility] DEPARTMENT OF PATHOLOGY AND GENOMIC MEDICINE O2 saturation, arterial 98 95 - 100 % [facility] DEPARTMENT OF PATHOLOGY AND GENOMIC MEDICINE Specimen Blood Performing Organization Address [facility] Phone Number [facility] DEPARTMENT OF PATHOLOGY AND [address] [place] [address] XR Chest 1 Vw Portable (10/16/2017 2:40 PM CDT)Only the most recent of2 resultswithin the time period is included. Narrative Performed At EXAMINATION:XR CHEST 1 VW PORTABLE RADIANT CLINICAL HISTORY:Cough COMPARISON:Most Recent IMPRESSION: Heart and mediastinum are stable. No focal pulmonary infiltrates are noted. Bones are osteopenic. [facility]-[id number] Procedure Note Hm Interface, Radiology Results Incoming - 10/16/2017 2:46 PM CDT EXAMINATION: XR CHEST 1 VW PORTABLE CLINICAL HISTORY: Cough COMPARISON: Most Recent IMPRESSION: Heart and mediastinum are stable. No focal pulmonary infiltrates are noted. Bones are osteopenic. [facility]-[id number] Performing Organization Address [facility] Phone Number [facility] [address] [place] [address] ALT (SGPT) (10/16/2017 2:08 PM CDT) ALT <5 (A) 5 - 50 U/L [facility] DEPARTMENT OF PATHOLOGY AND GENOMIC MEDICINE Specimen Plasma specimen Performing Organization Address [facility] Phone Number [facility] DEPARTMENT OF PATHOLOGY AND [address] [place] [address] AST (SGOT) (10/16/2017 2:08 PM CDT) AST 17 10 - 35 U/L [facility] DEPARTMENT OF PATHOLOGY AND [facility] Specimen Plasma specimen Performing Organization Address [facility] Phone Number [facility] DEPARTMENT OF PATHOLOGY AND [address] [place] [address] Potassium level (10/16/2017 2:08 PM CDT) Potassium 3.8 3.5 - 5.0 mEq/L [facility] DEPARTMENT OF PATHOLOGY AND GENOMIC MEDICINE Specimen Plasma specimen Performing Organization Address [facility] Phone Number [facility] DEPARTMENT OF PATHOLOGY AND [address] [place] [address] Lactic acid level (10/16/2017 8:56 AM CDT)Only the most recent of7 resultswithin the time period is included. Lactic acid 2.3 (H) 0.5 - 2.2 mmol/L [facility] DEPARTMENT OF PATHOLOGY AND GENOMIC MEDICINE Specimen Blood Performing Organization Address [facility] Phone Number [facility] DEPARTMENT OF PATHOLOGY AND [address] [place] [address] XR Abdomen 1 Vw (10/15/2017 2:57 PM CDT) Narrative Performed At EXAMINATION:XR ABDOMEN 1 [facility] CLINICAL HISTORY:difficulty with drainig PD fluidcheck catheter [...] lower quadrant 2. Nonspecific abdominal gas pattern. [id number] Procedure Note Interface, Radiology Results Incoming - [...] lower quadrant 2. Nonspecific abdominal gas pattern. [id number] Performing Organization Address City/State/Zipcode Phone Number [facility] [address] [place] [address] Pv duplex arterial lower extremity (10/15/2017 2:30 PM CDT) Narrative Performed At [facility] Vascular Ultrasound Laboratory Lower Extremity Arterial Duplex Report [address] [address], [place] [address] Pat.Name:JESSE WHITE.ID:[id number] .Date: 10/15/2017 Refer.MD:Lucas Lemus MD Exam Time: 12:49:00 PM Study Type:LE Arterial DOBAge:1945,72YSex: FEMALE Sonogrphr: YANG Bridges, CHRISS Pat. Stat.:Inpatient Room:[address] TapeVol: SUZI CPT - 4: 88285 Echo Event ID:[id number] Order ID:[id number] Reason for Study:Non palpable pulse, PAD, non-healing [...] waveforms on the left. MEASUREMENTS: DOPPLER Right BLANKING MACHINE OPERATOR prox BLANKING MACHINE OPERATOR prox PSV74.3 cm/s BLANKING MACHINE OPERATOR Right BLANKING MACHINE OPERATOR Prox 60 degLeft BLANKING MACHINE OPERATOR Dist D60 deg Right Profunda Profunda PSV58.1 [...] Dist Pop Dist PSV95.2 cm/s Popliteal Right Alunwxhwd81 degLeft Popliteal 60 deg Right Dxpjmworb94 degLeft Popliteal 60 deg Right Pop Prox Pop Prox PSV72.1 cm/s Right MEENU Dist MEENU Dist PSV30.5 cm/s Tibial Art Right Tibial Ar60 degLeft Tibial Art60 deg Right Tibial Ar60 degLeft Tibial Art60 deg Right Tibial Ar60 degLeft Tibial Art60 deg Right MEENU Mid MEENU Mid PSV 69.3 cm/s Right CHAIN SALES CONSULTANT Prox CHAIN SALES CONSULTANT Prox PSV 104 cm/sPTA Prox PSV25.1 cm/s [...] Prox PSV82.7 cm/sATA Prox PSV82.7 cm/s Left CHAIN SALES CONSULTANT Mid CHAIN SALES CONSULTANT Mid PSV 26.8 cm/s Tibial Post Left Tibial Pos60 degLeft Tibial Pos60 deg Left CHAIN SALES CONSULTANT Prox CHAIN SALES CONSULTANT Prox PSV26.8 cm/s Left Peroneal Prox Peroneal Prox P75.8 cm/s Peroneal Left Peroneal P60 deg Right BLANKING MACHINE OPERATOR Mid BLANKING MACHINE OPERATOR Mid PSV 74.3 cm/s Left BLANKING MACHINE OPERATOR Mid BLANKING MACHINE OPERATOR Mid JRG185 cm/s Left Profunda Profunda PSV67.2 cm/s Right CHAIN SALES CONSULTANT Mid CHAIN SALES CONSULTANT Mid PSV0 cm/s Right CHAIN SALES CONSULTANT Distal CHAIN SALES CONSULTANT Distal PSV 0 cm/s Left CHAIN SALES CONSULTANT Distal CHAIN SALES CONSULTANT Distal PSV33.4 cm/s Right Peroneal Prox Peroneal [...] Ultrasound Laboratory Lower Extremity Arterial Duplex Report [address] [place] [address] Pat.Name: JESSE WHITE Pat.ID: [id number] .Date: 10/15/2017 Refer.MD: Lucas Lemus MD Exam Time: 12:49:00 PM Study Type:LE Arterial Age: 11 1945,72Y Sex: FEMALE Sonogrphr: YANG Bridges, CHRISS Pat. Stat.:Inpatient Room: [address] Tape Vol: JM, CPT - 4: 10373 Echo Event ID:[id number] Order ID: [id number] Reason for Study:Non palpable pulse, PAD, non-healing [...] waveforms on the left. MEASUREMENTS: DOPPLER Right BLANKING MACHINE OPERATOR prox BLANKING MACHINE OPERATOR prox PSV 74.3 cm/s BLANKING MACHINE OPERATOR Right BLANKING MACHINE OPERATOR Prox 60 deg Left BLANKING MACHINE OPERATOR Dist D 60 deg Right Profunda Profunda [...] Mid MEENU Mid PSV 69.3 cm/s Right CHAIN SALES CONSULTANT Prox CHAIN SALES CONSULTANT Prox PSV 104 cm/s CHAIN SALES CONSULTANT Prox PSV 25.1 cm/s Left SFA Dist [...] cm/s MEENU Prox PSV 82.7 cm/s Left CHAIN SALES CONSULTANT Mid CHAIN SALES CONSULTANT Mid PSV 26.8 cm/s Tibial Post Left Tibial Pos 60 deg Left Tibial Pos 60 deg Left CHAIN SALES CONSULTANT Prox CHAIN SALES CONSULTANT Prox PSV 26.8 cm/s Left Peroneal Prox Peroneal Prox P 75.8 cm/s Peroneal Left Peroneal P 60 deg Right BLANKING MACHINE OPERATOR Mid BLANKING MACHINE OPERATOR Mid PSV 74.3 cm/s Left BLANKING MACHINE OPERATOR Mid BLANKING MACHINE OPERATOR Mid PSV 105 cm/s Left Profunda Profunda PSV 67.2 cm/s Right CHAIN SALES CONSULTANT Mid CHAIN SALES CONSULTANT Mid PSV 0 cm/s Right CHAIN SALES CONSULTANT Distal CHAIN SALES CONSULTANT Distal PSV 0 cm/s Left CHAIN SALES CONSULTANT Distal CHAIN SALES CONSULTANT Distal PSV 33.4 cm/s Right Peroneal Prox [...] Organization Address City/State/Zipcode Phone Number [facility] [address] [place] [address] MRI Lower Extremity Wo Contrast Right (10/14/2017 4:41 PM CDT) Narrative Performed At EXAMINATION:MRI LOWER EXTREMITY WO [...] medially probably represents a thrombosed superficial varix. [id number] Procedure Note Interface, Radiology Results Incoming - [...] medially probably represents a thrombosed superficial varix. [id number] Performing Organization Address City/State/Zipcode Phone Number [facility] [address] [facility] [phone] Pv carotid duplex (10/13/2017 5:41 PM CDT) Narrative Performed At [facility] Vascular Ultrasound Laboratory Carotid Artery Duplex Report [address] [address], [place] [address] For quality compliance consultant purposes, the categorization of the degree of the stenosis of this exam is based on criteria described in the IAC carotid stenosis grading white paper( www.intersocietal.org/Vascular) and Mikayla Mendoza., Levi PattonB., et al. Carotid artery stenosis: paulson-scale and Doppler US diagnosis--Society of Radiologists in Ultrasound Consensus Conference. Radiology. 2003 Dec; 229(2):340-6. Pat.Name:JESSE WHITE.ID:[id number] .Date: 10/13/2017 Refer.MD:MANJU LEONG MD Exam Time: 4:08:00 PMStudy Type:Carotid DOBAge:1945,72YSex: FEMALE Sonogrphr: Julian Vi, RVTPat. Stat.:Inpatient Room:[address] TapeVol: , CPT - 4: 91702 Echo Event ID:[id number] Order ID:[id number] Reason for Study:Patient had suncope. History of [...] bilaterally. Both vertebral arteries are antegrade. Carotid Findings:RightLeft Flw AntegradeAntegrade Subclavian TriphasicTriphasic MEASUREMENTS: DOPPLER Right CCA [...] EDV34.6 cm/s Right ICA Mid ICA Mid JBS393 cm/[place] Mid EDV 27.4 cm/s Right ICA [...] EDV36.9 cm/s Left ICA Mid ICA Mid [id number] cm/[place] Mid EDV 25.4 cm/s Left ICA [...] Vascular Ultrasound Laboratory Carotid Artery Duplex Report [address] [address], [place] [address] For quality compliance consultant purposes, the categorization of the degree of the stenosis of this exam is based on criteria described in the IAC carotid stenosis grading white paper( www.intersocietal.org/Vascular) and Mikayla Mendoza., Matias Patton., et al. Carotid artery stenosis: paulson-scale and Doppler US diagnosis--Society of Radiologists in Ultrasound Consensus Conference. Radiology. 2002; 229(2):340-6. Pat.Name: JESSE WHITE Pat.ID: [id number] .Date: 10/13/2017 Refer.MD: MANJU LEONG MD Exam Time: 4:08:00 PM Study Type:Carotid Age: 11 1945,72Y Sex: FEMALE Sonogrphr: Julian Vi, RVT Pat. Stat.:Inpatient Room: [address] Tape Vol: , CPT - 4: 86874 Echo Event ID:[id number] Order ID: [id number] Reason for Study:Patient had suncope. History of [...] Sergio Sommers MD, RPVI Performing Organization Address [facility]/Zipcode Phone Number [facility] [address] [place] [address] Troponin (10/13/2017 4:26 AM CDT)Only the most recent of4 resultswithin the time period is included. Troponin <0.30 0.00 - 0.30 ng/mL [facility] DEPARTMENT OF PATHOLOGY Comment: AND GENOMIC MEDICINE 0.30 - 1.49 ng/mlMay indicate increased risk of acute coronary syndrome. >=1.5 ng/mlConsistent with acute myocardial infarction. The diagnostic value of a single normal or non-diagnostic result is questionable.Serial samples at 2-6 hour intervals are required to rule out acute myocardial injury. Specimen Plasma specimen Performing Organization Address [facility] Phone Number [facility] DEPARTMENT OF PATHOLOGY AND [address] [place] [address] [employer] [facility] Hepatitis B surface antigen (10/13/2017 4:26 AM CDT)Only the most recent of2 resultswithin the time period is included. Hepatitis B surface Ag Non-reactive Non-reactive [facility] DEPARTMENT OF PATHOLOGY AND GENOMIC MEDICINE Specimen Blood Performing Organization Address [facility] Phone Number [facility] DEPARTMENT OF PATHOLOGY AND [address] [place] [address] [employer] [facility] Sedimentation rate (10/13/2017 4:26 AM CDT)Only the most recent of2 resultswithin the time period is included. Sedimentation rate 140 (H) 0 - 20 mm/hr [facility] DEPARTMENT OF PATHOLOGY AND GENOMIC MEDICINE Specimen Blood Performing Organization Address [facility] Phone Number [facility] DEPARTMENT OF PATHOLOGY AND [address] [place] [address] [employer] [facility] C-reactive protein (10/13/2017 4:26 AM CDT)Only the most recent of2 resultswithin the time period is included. CRP 2.13 (H) 0.00 - 0.50 mg/dL [facility] DEPARTMENT OF PATHOLOGY AND GENOMIC MEDICINE Specimen Plasma specimen Performing Organization Address [facility]/Zipcode Phone Number [facility] DEPARTMENT OF PATHOLOGY AND [address] [place] [address] GENOMIC MEDICINE MRI Brain Wo Contrast (10/12/2017 8:22 PM CDT)Only the most recent of2 resultswithin the time period is included. Narrative Performed At EXAMINATION:MRI BRAIN WO CONTRAST [facility] CLINICAL HISTORY:CVA COMPARISON:10/12/2017 CT. July 18, 2017 [...] No acute intracranial abnormalities or mass lesions. [facility]-[id number] Procedure Note Interface, Radiology Results Incoming - [...] No acute intracranial abnormalities or mass lesions. [facility]-[id number] Performing Organization Address [facility]/Zipcode Phone Number [facility] [address] [place] [address] Echocardiogram complete w contrast and 3D if needed (10/12/2017 6:28 PM CDT) Narrative Performed At [facility] Echocardiography Report [address] [facility] [address] [id number] Pat.Name:JESSE WHITE.ID:[id number] .Date: 10/12/2017 Refer.MD:Robert Leong MD Exam Time: 5:32:00 PMStudy Type:Routine Echo Height:59inDOBAge: 1945,72Y Sex: FEMALEHR:75 bpm Sonogrphr: CHRISS Worthy. Stat.:Inpatient Room:[address] Study Status:Final Echo Event ID:[id number] Order ID:[id number] Reason for Study:CHF Procedures:2D Echo, Colorflow Doppler [...] structural TV abnormalities noted. Mild tricuspid regurgitation Gimenez: LV relaxation is impaired. LV filling pressure is normal. Hepaticvein pressure is normal, RA pressure < 5mmHg. Other:Insufficient TR jet to estimate PA systolic pressure. MEASUREMENTS: 2D Parasternal [place] LVOT 1.9 cmLVPWd1.2 cm LVIDd3.6 cmLA Ds2.6 cm LVIDs1.8 cmAo Rtd 3.7 cm LV%fs 49.4 % LV Rbgo905.1 g(87-129) IVSd 1.1 cmRWT0.7 LA Sng Plane LA Area 20.5 cm2(8.8-23.4) LA Vol66.8 ml LA LngAx 5.2 cm DOPPLER LVOT For Flow LVOT Area2.8 cm2 LVOT TVI21.9 cm ZSDVbdYvj401.6 cm/sLVOT SV 62 ml LVOTpkPG 4.1 wnIfII38.2 bpm LVOTmnPG 2.1 mmHgLVOT CO4.4 l/min Signed 10/15/2017 12:53 PM Federico Alvarado MD Procedure Note Interface, Radiology Results In - 10/15/2017 12:54 PM CDT Echocardiography Report [address]Name: JESSE WHITE Pat.ID: [id number] .Date: 10/12/2017 Refer.MD: Robert Leong MD Exam Time: 5:32:00 PM Study Type:Routine Echo Height: 59in Age: 11 1945,72Y Sex: FEMALE HR: 75 bpm Sonogrphr: CHRISS Worthy Pat. Stat.:Inpatient Room: [address] Study Status:Final Echo Event ID:[id number] Order ID: [id number] Reason for Study:CHF Procedures:2D Echo, Colorflow Doppler [...] structural TV abnormalities noted. Mild tricuspid regurgitation Gimenez: LV relaxation is impaired. LV filling pressure is normal. Hepatic vein pressure is normal, RA pressure < 5mmHg. Other: Insufficient TR jet to estimate PA systolic pressure. MEASUREMENTS: 2D Parasternal [place] LVOT 1.9 cm LVPWd 1.2 cm LVIDd [...] Performing Organization Address City/State/Zipcode Phone Number [facility] [address] [place] [address] CT Head Wo Contrast (10/12/2017 3:43 PM CDT) Narrative Performed At EXAMINATION:CT HEAD WO CONTRAST [...] 1550 hours on 10/12/2017 who verbalized understanding. [facility]-[id number] Procedure Note Hm Interface, Radiology Results Incoming [...] 1550 hours on 10/12/2017 who verbalized understanding. [id number] Performing Organization Address City/[facility]/Zipcode Phone Number [facility] [address] [place] [address] Blood culture, aerobic (10/12/2017 3:15 PM CDT) Blood culture isolate, No growth after 5 days of incubation. [facility] DEPARTMENT OF aerobic Comment: PATHOLOGY AND GENOMIC Specimen Information MEDICINE Specimen Source: Blood Specimen Site: Wrist, right Specimen Blood - Wrist, right Performing Organization Address City/[facility] Phone Number [facility] DEPARTMENT OF PATHOLOGY AND [address] [place] [address] GENOMIC MEDICINE Hemoglobin A1c (10/12/2017 3:15 PM CDT)Only the most recent of2 resultswithin the time period is included. Hemoglobin A1C 7.4 (H) 4.0 - 5.6 % [facility] DEPARTMENT OF PATHOLOGY Comment: AND GENOMIC MEDICINE HbA1c cutoffs for diagnosing diabetes: 4.0% - 5.6%=normal 5.7% - 6.4%=increased risk for diabetes (prediabetes) >=6.5%=diabetes Goals for glycemic control (ADA 2016) < 7.0%Target for non adults with diabetes. More or less stringent targets may be appropriate for individual patients. <7.5% Target for Children and adolescents with type 1 diabetes. Specimen Blood Performing Organization Address City/[facility]/Zipcode Phone Number [facility] DEPARTMENT OF PATHOLOGY AND [address] [place] [address] GENOMIC MEDICINE Lipid panel (10/12/2017 3:15 PM CDT)Only the most recent of2 resultswithin the time period is included. Cholesterol 147 <200 mg/dL [facility] DEPARTMENT OF PATHOLOGY AND GENOMIC MEDICINE Triglycerides 143 <150 mg/dL [facility] DEPARTMENT OF PATHOLOGY AND GENOMIC MEDICINE HDL cholesterol 52 >40 mg/dL [facility] DEPARTMENT OF PATHOLOGY AND GENOMIC MEDICINE LDL cholesterol 71Comment: Result <100 mg/dL [facility] DEPARTMENT OF obtained by direct LDL PATHOLOGY AND GENOMIC measurement MEDICINE Lipid panel interpretation SeeBelow [facility] DEPARTMENT OF Comment: PATHOLOGY AND GENOMIC Total Cholesterol (mg/dL) MEDICINE <200 Desirable 280-194Puuayogbrk-bvak >=240High Triglycerides (mg/dL) <150 Normal 583-287Blyrrhaoit-mdjf 200-499High >=500Very high HDL Cholesterol (mg/dL) <40Low (male) <40Low (female) LDL Cholesterol (mg/dL) <100 Optimal 100-129Near or above optimal 073-590Rfyoocbtzm-zthx 160-189High >=190Very high Risk Catergories that modify [...] mg/dL) Specimen Plasma specimen Performing Organization Address City/State/Zipcode Phone Number [facility] DEPARTMENT OF PATHOLOGY AND [address] [place] [address] GENOMIC MEDICINE ECG ED Preliminary Interpretation - NOT AN ORDER (10/12/2017 1:41 PM CDT) Narrative Performed At Kori Najera MD 10/13/2017 10:06 AM ECG ED Preliminary Interpretation - Not an Order Performed by: KORI NAJERA Authorized by: KORI NAJERA ECG reviewed by ED Physician in the absence of a tower erector: yes Previous ECG: Previous ECG:Unavailable Interpretation: Interpretation: non-specific Rate: ECG rate:75 ECG rate assessment: normal Rhythm: Rhythm: sinus rhythm Ectopy: Ectopy: none QRS: QRS axis:Normal Conduction: Conduction: normal ST segments: ST segments:Normal T waves: T waves: normal Comments: Corrective QT interval is 513 B natriuretic peptide (10/12/2017 1:05 PM CDT) BNP 73 0 - 100 pg/mL [facility] DEPARTMENT OF PATHOLOGY AND GENOMIC MEDICINE Specimen Blood Performing Organization Address City/State/Zipcode Phone Number [facility] DEPARTMENT OF PATHOLOGY AND [address] [place] [address] GENOMIC MEDICINE Echocardiogram complete w contrast and 3D if needed (07/20/2017 9:37 AM CDT) Narrative Performed At [facility] Echocardiography Report [address] [facility] [address], [place] [address] Pat.Name:JESSE WHITE.ID:[id number] .Date: 07/20/2017 Refer.MD:YOSVANY FISHER Exam Time: 8:46:00 AMStudy Type:Routine Echo Height:59inWeight: 182lb BSA: 1.77 m2 DOBAge:1945,72Y Sex: FEMALEBP:93/58 HR:64 bpm Sonogrphr: CHRISS Regan/ Aba Hernández MD Pat. Stat.:Inpatient Room:[facility] Study Status:Final Echo Event ID:[id number] Order ID:[id number] Reason for Study:Chad Jim Procedures:2D Echo, Colorflow Doppler, Intravenous Definity Contrast [...] noted. TV: No structural TV abnormalities noted. Gimenez: Diastolic dysfunction Grade I (Mild): Impaired relaxation withnormal LV filling pressures. Other:Insufficient TR jet to estimate PA systolic pressure. MEASUREMENTS: 2D Parasternal [place] LVOT 1.8 cmLA Ds3.1 cm LVIDd3.3 cmIndex1.8 cm/m Ao Rtd 2.8 cm Index1.6 cm/m LVIDs2.3 cmLV Atvf312.8 g(87-129) LV%fs 28.3 % LVM Index 70 g/m2 IVSd 1.2 cmRWT0.7 LVPWd1.2 cm LA Sng Plane LA Area 16.5 cm2(8.8-23.4) LA Vol44.6 ml Index25.2 ml/m LA LngAx 5.1 cm Signed 07/20/2017 06:13 PM Tiesha Patterson M.D. Procedure Note Interface, Radiology Results In - 07/20/2017 6:13 PM CDT Echocardiography Report [address] [place] [address] Pat.Name: JESSE WHITE [facility].ID: [id number] .Date: 07/20/2017 Refer.MD: YOSVANY FISHER Exam Time: 8:46:00 AM Study Type:Routine Echo Height: 59in Weight: 182lb BSA: 1.77 m2 Age: 11 1945,72Y Sex: FEMALE BP: 93/58 HR: 64 bpm Sonogrphr: CHRISS Regan/ Aba Hernández MD Pat. Stat.:Inpatient Room: [facility] Study Status:Final Echo Event ID:[id number] Order ID: [id number] Reason for Study:Stoke Eval Procedures:2D Echo, Colorflow [...] noted. TV: No structural TV abnormalities noted. Gimenez: Diastolic dysfunction Grade I (Mild): Impaired relaxation with normal LV filling pressures. Other: Insufficient TR jet to estimate PA systolic pressure. MEASUREMENTS: 2D Parasternal [place] LVOT 1.8 cm LA Ds 3.1 cm [...] PM Tiesha Patterson M.D. Performing Organization Address [facility]/Zipcode Phone Number [facility] [address] [place] [address] Phosphorus level (07/20/2017 4:00 AM CDT)Only the most recent of3 resultswithin the time period is included. Phosphorus 7.7 (H) 2.4 - 4.5 mg/dL [facility] DEPARTMENT OF PATHOLOGY AND GENOMIC MEDICINE Specimen Plasma specimen Narrative Performed At MG and PHOS added per Rufina Ho/GERARDO in [facility] DEPARTMENT OF PATHOLOGY AND GENOMIC M6SW at 07/20/17 0730 by MLMGG. MEDICINE LACID RESULT CALLED TO AND READ BACK BY RUFINA GASPAR AT07/20/2017 07:32 BY KELSIE Performing Organization Address [facility] Phone Number [facility] DEPARTMENT OF PATHOLOGY AND [address] [place] [address] GENOMIC MEDICINE Magnesium level (07/20/2017 4:00 AM CDT)Only the most recent of3 resultswithin the time period is included. Magnesium 2.6 (H) 1.6 - 2.4 mg/dL [facility] DEPARTMENT OF PATHOLOGY AND GENOMIC MEDICINE Specimen Plasma specimen Narrative Performed At MG and PHOS added per Rufina Dumont in [facility] DEPARTMENT OF PATHOLOGY AND GENOMIC M6SW at 07/20/17 0730 by MLMGG. MEDICINE LACID RESULT CALLED TO AND READ BACK BY RUFINA GRADY/RINKU AT07/20/2017 07:32 BY AU Performing Organization Address [facility] Phone Number [facility] DEPARTMENT OF PATHOLOGY AND [address] [place], [place] [id number] GENOMIC MEDICINE XR Chest 2 Vw (07/18/2017 11:12 AM CDT) Narrative Performed At EXAMINATION:XR CHEST 2 VW [facility] CLINICAL HISTORY:leukocytosis COMPARISON:None. IMPRESSION: The cardiomediastinal silhouette and central vasculature are within normal limits. Atherosclerotic calcifications in the thoracic aorta which is tortuous. The lungs are clear. Degenerative changes in the spine. [id number] Procedure Note Interface, Radiology Results Incoming - 07/18/2017 11:36 AM CDT EXAMINATION: XR CHEST 2 VW CLINICAL HISTORY: leukocytosis COMPARISON: None. IMPRESSION: The cardiomediastinal silhouette and central vasculature are within normal limits. Atherosclerotic calcifications in the thoracic aorta which is tortuous. The lungs are clear. Degenerative changes in the spine. [facility]-[id number] Performing Organization Address [facility] Phone Number [facility] [address] [place] [address] MRA Neck Wo Contrast (07/18/2017 10:25 AM CDT) Narrative Performed At EXAMINATION:MRA NECK WO CONTRAST HM [facility] CLINICAL HISTORY:stroke eval COMPARISON: No previous angiogram for comparison. FINDINGS: Noncontrast 2-D and 3-D huiq-yo-hephyl MRA of the neck is performed. Source [...] in the carotid bulbs with mild stenosis. [facility]-[id number] Procedure Note Interface, Radiology Results Incoming - 07/18/2017 10:50 AM CDT EXAMINATION: MRA NECK WO CONTRAST CLINICAL HISTORY: stroke eval COMPARISON: No previous angiogram for comparison. FINDINGS: Noncontrast 2-D and 3-D oryk-re-sfilsh MRA of the neck is performed. Source [...] in the carotid bulbs with mild stenosis. [facility]-[id number] Performing Organization Address [facility] [facility] Phone Number [facility] [address] [place] [address] MRA Head Wo Contrast (07/18/2017 10:19 AM CDT) Narrative Performed At EXAMINATION:MRA HEAD WO CONTRAST HM RADIANT CLINICAL HISTORY:stroke eval COMPARISON: No previous angiogram. MRI brain exam dated 07/18/2017. FINDINGS: Noncontrast 3-D [id number] MRA of the head is performed. Source images and three-dimensional reformats are provided. There is no proximal branch occlusion or high-grade stenosis. Minimal atherosclerotic narrowing is noted within the proximal right MCA M1 segment. Minimal atherosclerotic narrowing is noted within the left DIRECTOR HAIR P2 segment proximally. There is an anterior communicating artery. No aneurysm or vascular malformation is identified. IMPRESSION: Minimal intracranial atherosclerotic changes without proximal branch occlusion or high-grade stenosis. [facility]-[id number] Procedure Note Interface, Radiology Results Incoming - 07/18/2017 10:27 AM CDT EXAMINATION: MRA HEAD WO CONTRAST CLINICAL HISTORY: stroke eval COMPARISON: No previous angiogram. MRI brain exam dated 07/18/2017. FINDINGS: Noncontrast 3-D [id number] MRA of the head is performed. Source images and three-dimensional reformats are provided. There is no proximal branch occlusion or high-grade stenosis. Minimal atherosclerotic narrowing is noted within the proximal right MCA M1 segment. Minimal atherosclerotic narrowing is noted within the left DIRECTOR HAIR P2 segment proximally. There is an anterior communicating artery. No aneurysm or vascular malformation is identified. IMPRESSION: Minimal intracranial atherosclerotic changes without proximal branch occlusion or high-grade stenosis. [facility]-[id number] Performing Organization Address City/[facility] Phone Number [facility] [address] [place] [id number] NICK (07/18/2017 5:48 AM CDT) NICK screen Negative Negative [facility] DEPARTMENT OF PATHOLOGY AND GENOMIC MEDICINE Specimen Blood Performing Organization Address [facility] Phone Number [facility] DEPARTMENT OF PATHOLOGY AND [address] [place] [phone] [facility] Creatine kinase, total (CPK) (07/18/2017 5:48 AM CDT) Creatine kinase 54 26 - 192 U/L [facility] DEPARTMENT OF PATHOLOGY AND GENOMIC MEDICINE Specimen Plasma specimen Performing Organization Address [facility] Phone Number [facility] DEPARTMENT OF PATHOLOGY AND [address] [place] [phone] [facility] Homocystine, plasma (07/18/2017 12:10 AM CDT) Homocysteine 36.1 (H) 0.0 - 15.0 umol/L [facility] DEPARTMENT OF Comment: PATHOLOGY AND GENOMIC The risk for coronary vascular disease increases progressively MEDICINE with homocysteine concentration.A 3.4 times greater risk is associated with a homocysteine concentration of greater than 15.8 umol/L as compared to a concentration below 14.1 umol/L. Specimen Plasma specimen Performing Organization Address City/[facility] Phone Number [facility] DEPARTMENT OF PATHOLOGY AND [address] [place] [address] Thyroid stimulating hormone (07/18/2017 12:10 AM CDT) TSH 0.69 0.27 - 4.20 uIU/mL [facility] DEPARTMENT OF PATHOLOGY AND [facility] MEDICINE Specimen Blood Performing Organization Address [facility] Phone Number [facility] DEPARTMENT OF PATHOLOGY AND [address] [place] [address] T4, free (07/18/2017 12:10 AM CDT) T4, free 1.3 0.9 - 1.7 ng/dL [facility] DEPARTMENT OF PATHOLOGY AND GENOMIC MEDICINE Specimen Blood Performing Organization Address [facility] Phone Number [facility] DEPARTMENT OF PATHOLOGY AND [address] [place] [address] Folate level (07/18/2017 12:10 AM CDT) Folate >20.0 4.8 - 24.2 ng/mL [facility] DEPARTMENT OF PATHOLOGY AND GENOMIC MEDICINE Specimen Serum Performing Organization Address [facility] Phone Number [facility] DEPARTMENT OF PATHOLOGY AND [address] [place] [address] Vitamin B12 level (07/18/2017 12:10 AM CDT) Vitamin B12 659 211 - 946 pg/mL [facility] DEPARTMENT OF PATHOLOGY Comment: AND GENOMIC MEDICINE Significant overlap exists between normal and deficiency states. However, most patients with deficiencies will have Serum B12 <200 pg/mL. Specimen Serum Performing Organization Address [facility] Phone Number [facility] DEPARTMENT OF PATHOLOGY AND [address] [place] [address] MEDICINE after 03/15/2017 Insurance Payer Benefit Plan / Group Subscriber ID Type Phone Address MEDICARE MEDICARE PART A AND B xxxxxxxxxx Medicare [place], [place] MEDICAID MEDICAID xxxxxxxxx Medicaid Advance Directives Patient has advance care planning documents on file. For more information, please contact:Archie Bishop[address] [place] [address]
--- OUTSIDE RECORDS SUMMARY | 2018-03-16 12:46 | XMS REPORT | Clinical Summary ---
:1945 Author Organization [facility] Address [address] [place] [address] Care Team Providers Name Role Phone Unavailable Primary Care Provider Unavailable Allergies No Known Allergies Medications Medication Sig Dispensed Refills Start Date End Date Status docusate sodium Take 100 mg by 0 Active (COLACE) 100 MG mouth daily. capsule calcitriol Take 0.5 mcg by 0 Active [...] Active Tab tablet total) by mouth nightly. sevelamer Take 2 tablets 90 tablet 0 10/07/2017 10/08/19 Active (RENVELA) 800 mg (1,600 mg total) by 19 tablet mouth 3 (three) times daily with meals. sulfamethoxazole- Take 1 tablet (160 0 10/06/2017 04/04/19 Active trimethoprim mg of trimethoprim 19 (BACTRIM DS) total) by mouth 2 800-160 mg per (two) times daily tablet for 180 days. sevelamer Take 800 mg by 0 09/09/19 Discontinued (RENVELA) 800 mg mouth 3 (three) 18 tablet times daily with meals. insulin detemir Inject 30 Units 0 10/07/19 Discontinued U-100 (LEVEMIR) subcutaneously 18 100 unit/mL nightly. injection insulin detemir Inject 30 Units 0 10/07/19 Discontinued U-100 (LEVEMIR) subcutaneously 18 100 unit/mL every morning. injection aspirin 81 MG EC Take 81 mg by mouth 0 10/07/19 Discontinued tablet daily. 18 cephalexin Take 500 mg by 0 10/07/19 Discontinued (KEFLEX) 500 MG mouth 2 (two) times 18 capsule daily. amLODIPine Take 5 mg by mouth 0 10/07/19 Discontinued (NORVASC) 5 MG daily. 18 tablet furosemide Take 20 mg by mouth 0 10/07/19 Discontinued (LASIX) 40 MG 2 (two) times 18 tablet daily. carvedilol Take 3.125 mg by 0 10/07/19 Discontinued (COREG) 3.125 MG mouth 2 (two) times 18 tablet daily with breakfast and dinner. rOPINIRole Take 0.5 mg by 0 10/07/19 Discontinued (REQUIP) 0.5 MG mouth nightly. [...] % daily for 7 days. 18 ointment pantoprazole Take 1 tablet (40 60 tablet 0 10/06/2017 11/23/19 (PROTONIX) 40 MG mg total) by mouth 18 tablet 2 (two) times daily for 47 days. 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 Cellulitis of right anterior lower leg 09/08/2017 Skin lesion of right leg 09/08/2017 Encounters Date Type Specialty Care Team Description 09/21/2017 Anesthesia Event Gastroenterology Bill Godinez MD 09/21/2017 Surgery Gastroenterology Mamie, UPPER ENDOSCOPY,BIOPSY MD Bong 09/10/2017 Orders Only General Internal Medicine 09/07/2017 [facility] Internal [facility], Cellulitis of right anterior lower leg (Primary Dx); - Encounter Medicine Jordana Villagomez, ESRD on peritoneal dialysis (HCC); 10/07/2017 Skin lesion of right leg; Erika, Type 2 diabetes mellitus with chronic kidney disease on chronic dialysis, with long-term current use of insulin ([facility]); Dilan Coleman MD Hyperphosphatemia; Elayne, Secondary hyperparathyroidism ([facility]); MD Yady Peritonitis associated with peritoneal dialysis, subsequent encounter (HCC); Cece, Peritonitis associated with peritoneal dialysis, sequela ([facility]); MD Miguelito Nocardia infection; Esophagitis determined by endoscopy; Coffee ground emesis; Gastrointestinal hemorrhage with hematemesis; Confusion; Cellulitis of right leg; Lymphangitis; Altered mental status, unspecified altered mental status type; Hallucination; Acute metabolic encephalopathy; Anorexia symptom; Peptic ulcer disease; Hypotension, unspecified hypotension type; Psychosis, unspecified psychosis type; Tachycardia; Dehydration; Loo Agitation Sedation Scale (RASS) score minus 3, moderate sedation after 03/15/2017 Social History Tobacco Use Types [...] file Procedures Procedure Name Priority Date/Time Associated Comments Diagnosis RHYTHM STRIP - SCAN 10/08/2017 12:30 PM CDT POCT-GLUCOSE METER Routine 10/07/2017 7:33 Results for this AM CDT procedure are in the results section. CBC W/PLT COUNT & AUTO Routine 10/07/2017 6:22 Results for this DIFFERENTIAL AM CDT procedure are in the results section. CBC W/PLT COUNT & AUTO Routine 10/07/2017 6:22 Results for this DIFFERENTIAL AM CDT procedure are in the results section. PHOSPHORUS Routine 10/07/2017 6:22 Results for this AM CDT procedure are in the results section. MAGNESIUM Routine 10/07/2017 6:22 Results for this AM CDT procedure are in the results section. BASIC METABOLIC PANEL Routine 10/07/2017 6:22 Results for this (7) AM CDT procedure are in the results section. POCT-GLUCOSE METER Routine 10/06/2017 9:49 Results for this PM CDT procedure are in the results section. POCT-GLUCOSE METER Routine 10/06/2017 5:18 Results for this PM CDT procedure are in the results section. POCT-GLUCOSE METER Routine 10/06/2017 11:40 Results for this AM CDT procedure are in the results section. PHOSPHORUS Routine 10/06/2017 10:11 Results for this AM CDT procedure are in the results section. MAGNESIUM Routine 10/06/2017 10:11 Results for this AM CDT procedure are in the results section. BASIC METABOLIC PANEL Routine 10/06/2017 10:11 Results for this (7) AM CDT procedure are in the results section. POCT-GLUCOSE METER Routine 10/06/2017 7:41 Results for this AM CDT procedure are in the results section. CBC W/PLT COUNT & AUTO Routine 10/06/2017 5:30 Results for this DIFFERENTIAL AM CDT procedure are in the results section. CBC W/PLT COUNT & AUTO Routine 10/06/2017 5:30 Results for this DIFFERENTIAL AM CDT procedure are in the results section. POCT-GLUCOSE METER Routine 10/05/2017 9:25 Results for this PM CDT procedure are in the results section. POCT-GLUCOSE METER Routine 10/05/2017 4:43 Results for this PM CDT procedure are in the results section. EEG AWAKE AND DROWSY Routine 10/05/2017 1:50 Results for this PM CDT procedure are in the results section. POCT-GLUCOSE METER Routine 10/05/2017 11:29 Results for this AM CDT procedure are in the results section. POCT-GLUCOSE METER Routine 10/05/2017 7:18 Results for this AM CDT procedure are in the results section. CBC W/PLT COUNT & AUTO Routine 10/05/2017 5:28 Results for this DIFFERENTIAL AM CDT procedure are in the results section. CBC W/PLT COUNT & AUTO Routine 10/05/2017 5:28 Results for this DIFFERENTIAL AM CDT procedure are in the results section. PHOSPHORUS Routine 10/05/2017 5:28 Results for this AM CDT procedure are in the results section. MAGNESIUM Routine 10/05/2017 5:28 Results for this AM CDT procedure are in the results section. BASIC METABOLIC PANEL Routine 10/05/2017 5:28 Results for this (7) AM CDT procedure are in the results section. POCT-GLUCOSE METER Routine 10/04/2017 8:30 Results for this PM CDT procedure are in the results section. POCT-GLUCOSE METER Routine 10/04/2017 4:29 Results for this PM CDT procedure are in the results section. POCT-GLUCOSE METER Routine 10/04/2017 11:39 Results for this AM CDT procedure are in the results section. PHOSPHORUS Routine 10/04/2017 10:44 Results for this AM CDT procedure are in the results section. MAGNESIUM Routine 10/04/2017 10:44 Results for this AM CDT procedure are in the results section. BASIC METABOLIC PANEL Routine 10/04/2017 10:44 Results for this (7) AM CDT procedure are in the results section. POCT-GLUCOSE METER Routine 10/04/2017 7:29 Results for this AM CDT procedure are in the results section. CBC W/PLT COUNT & AUTO Routine 10/04/2017 5:34 Results for this DIFFERENTIAL AM CDT procedure are in the results section. CBC W/PLT COUNT & AUTO Routine 10/04/2017 5:34 Results for this DIFFERENTIAL AM CDT procedure are in the results section. POCT-GLUCOSE METER Routine 10/03/2017 8:36 Results for this PM CDT procedure are in the results section. POCT-GLUCOSE METER Routine 10/03/2017 6:36 Results for this PM CDT procedure are in the results section. POCT-GLUCOSE METER Routine 10/03/2017 12:34 Results for this PM CDT procedure are in the results section. POCT-GLUCOSE METER Routine 10/03/2017 8:40 Results for this AM CDT procedure are in the results section. PHOSPHORUS Routine 10/03/2017 7:29 Results for this AM CDT procedure are in the results section. MAGNESIUM Routine 10/03/2017 7:29 Results for this AM CDT procedure are in the results section. BASIC METABOLIC PANEL Routine 10/03/2017 7:29 Results for this (7) AM CDT procedure are in the results section. CBC W/PLT COUNT & AUTO Routine 10/03/2017 6:13 Results for this DIFFERENTIAL AM CDT procedure are in the results section. CBC W/PLT COUNT & AUTO Routine 10/03/2017 6:13 Results for this DIFFERENTIAL AM CDT procedure are in the results section. POCT-GLUCOSE METER Routine 10/02/2017 11:15 Results for this PM CDT procedure are in the results section. POCT-GLUCOSE METER Routine 10/02/2017 5:03 Results for this PM CDT procedure are in the results section. EEG AWAKE AND DROWSY Routine 10/02/2017 3:47 Results for this PM CDT procedure are in the results section. POCT-GLUCOSE METER Routine 10/02/2017 11:59 Results for this AM CDT procedure are in the results section. POCT-GLUCOSE METER Routine 10/02/2017 7:35 Results for this AM CDT procedure are in the results section. LACTIC ACID, VENOUS, STAT 10/02/2017 6:10 Results for this WHOLE BLOOD AM CDT procedure are in the results section. POCT-HEMOGLOBIN Routine 10/02/2017 5:20 Results for this AM CDT procedure are in the results section. POCT-HEMATOCRIT Routine 10/02/2017 5:20 Results for this AM CDT procedure are in the results section. POCT-CALCIUM IONIZED Routine 10/02/2017 5:20 Results for this AM CDT procedure are in the results section. POCT-GLUCOSE Routine 10/02/2017 5:20 Results for this AM CDT procedure are in the results section. POCT-POTASSIUM Routine 10/02/2017 5:20 Results for this AM CDT procedure are in the results section. POCT-SODIUM Routine 10/02/2017 5:20 Results for this AM CDT procedure are in the results section. POCT-BLOOD GASES, Routine 10/02/2017 5:20 Results for this ARTERIAL AM CDT procedure are in the results section. PROCALCITONIN STAT 10/02/2017 5:19 Results for this AM CDT procedure are in the results section. BLOOD CULTURE Routine 10/02/2017 5:18 Results for this AM CDT procedure are in the results section. BLOOD CULTURE Routine 10/02/2017 5:18 Results for this AM CDT procedure are in the results section. XR CHEST 1 VIEW STAT 10/02/2017 5:10 Results for this PORTABLE/BEDSIDE AM CDT procedure are in the results section. POCT-LACTIC ACID, Routine 10/02/2017 4:47 Results for this VENOUS AM CDT procedure are in the results section. CBC W/PLT COUNT & AUTO Routine 10/02/2017 4:43 Results for this DIFFERENTIAL AM CDT procedure are in the results section. CBC W/PLT COUNT & AUTO Routine 10/02/2017 4:43 Results for this DIFFERENTIAL AM CDT procedure are in the results section. PHOSPHORUS Routine 10/02/2017 4:43 Results for this AM CDT procedure are in the results section. MAGNESIUM Routine 10/02/2017 4:43 Results for this AM CDT procedure are in the results section. BASIC METABOLIC PANEL Routine 10/02/2017 4:43 Results for this (7) AM CDT procedure are in the results section. POCT-GLUCOSE METER Routine 10/01/2017 8:59 Results for this PM CDT procedure are in the results section. MR BRAIN WITHOUT IV Routine 10/01/2017 4:24 Results for this CONTRAST PM CDT procedure are in the results section. POCT-GLUCOSE METER Routine 10/01/2017 11:59 Results for this AM CDT procedure are in the results section. POCT-GLUCOSE METER Routine 10/01/2017 7:27 Results for this AM CDT procedure are in the results section. CBC W/PLT COUNT & AUTO Routine 10/01/2017 5:23 Results for this DIFFERENTIAL AM CDT procedure are in the results section. CBC W/PLT COUNT & AUTO Routine 10/01/2017 5:23 Results for this DIFFERENTIAL AM CDT procedure are in the results section. PHOSPHORUS Routine 10/01/2017 5:23 Results for this AM CDT procedure are in the results section. MAGNESIUM Routine 10/01/2017 5:23 Results for this AM CDT procedure are in the results section. BASIC METABOLIC PANEL Routine 10/01/2017 5:23 Results for this (7) AM CDT procedure are in the results section. POCT-GLUCOSE METER Routine 09/30/2017 9:33 Results for this PM CDT procedure are in the results section. POCT-GLUCOSE METER Routine 09/30/2017 5:09 Results for this PM CDT procedure are in the results section. POCT-GLUCOSE METER Routine 09/30/2017 12:41 Results for this PM CDT procedure are in the results section. POCT-GLUCOSE METER Routine 09/30/2017 12:13 Results for this PM CDT procedure are in the results section. POCT-GLUCOSE METER Routine 09/30/2017 8:28 Results for this AM CDT procedure are in the results section. CBC W/PLT COUNT & AUTO Routine 09/30/2017 4:40 Results for this DIFFERENTIAL AM CDT procedure are in the results section. CBC W/PLT COUNT & AUTO Routine 09/30/2017 4:40 Results for this DIFFERENTIAL AM CDT procedure are in the results section. PHOSPHORUS Routine 09/30/2017 4:40 Results for this AM CDT procedure are in the results section. MAGNESIUM Routine 09/30/2017 4:40 Results for this AM CDT procedure are in the results section. BASIC METABOLIC PANEL Routine 09/30/2017 4:40 Results for this (7) AM CDT procedure are in the results section. POCT-GLUCOSE METER Routine 09/29/2017 8:53 Results for this PM CDT procedure are in the results section. POCT-GLUCOSE METER Routine 09/29/2017 5:21 Results for this PM CDT procedure are in the results section. LACTIC ACID, VENOUS, STAT 09/29/2017 2:38 Results for this WHOLE BLOOD PM CDT procedure are in the results section. US ABDOMEN LIMITED MELIDA 09/29/2017 1:14 Results for this PM CDT procedure are in the results section. ECG 12-LEAD Routine 09/29/2017 8:18 AM CDT Procedure Note - Interface, External Ris In - 09/29/2017 8:22 AM CDT Ventricular Rate 122 BPM Atrial Rate 122 BPM P-R Interval 142 ms QRS Duration 88 ms Q-T Interval 334 ms QTC Calculation(Bazett) 475 ms P Marcella 72 degrees R Marcella 0 degrees T Marcella [address] & T wave abnormality, consider lateral ischemia Abnormal ECG When compared with ECG of 28-SEP-2017 11:36, No significant change was found ECG 12-LEAD STAT 09/29/2017 8:18 AM CDT POCT-GLUCOSE METER Routine 09/29/2017 7:34 AM CDT CBC W/PLT COUNT & AUTO Routine 09/29/2017 6:11 AM CDT Results for this DIFFERENTIAL procedure are in the results section. CBC W/PLT COUNT & AUTO Routine 09/29/2017 6:11 AM CDT Results for this DIFFERENTIAL procedure are in the results section. PHOSPHORUS Routine 09/29/2017 6:11 AM CDT MAGNESIUM Routine 09/29/2017 6:11 AM CDT BASIC METABOLIC PANEL (7) Routine 09/29/2017 6:11 AM CDT POCT-GLUCOSE METER Routine 09/28/2017 8:31 PM CDT POCT-GLUCOSE METER Routine 09/28/2017 5:11 PM CDT PT/APTT Routine 09/28/2017 2:43 PM CDT POCT-GLUCOSE METER Routine 09/28/2017 12:20 PM CDT ECG 12-LEAD Routine 09/28/2017 11:36 AM CDT Procedure Note - Interface, External Ris In - 09/28/2017 11:39 AM CDT Ventricular Rate 100 BPM Atrial Rate 100 BPM P-R Interval 140 ms QRS Duration 88 ms Q-T Interval 374 ms QTC Calculation(Bazett) 482 ms P Marcella 73 degrees R Marcella 17 degrees T Marcella 99 degrees Normal sinus rhythm Nonspecific ST and T wave abnormality Abnormal ECG When compared with ECG of 25-SEP-2017 22:04, No significant change was found ECG 12-LEAD STAT 09/28/2017 11:36 AM CDT POCT-GLUCOSE METER Routine 09/28/2017 7:54 AM CDT CBC W/PLT COUNT & AUTO Routine 09/28/2017 5:42 AM CDT Results for this DIFFERENTIAL procedure are in the results section. VANCOMYCIN LEVEL, RANDOM Routine 09/28/2017 5:42 AM CDT CBC W/PLT COUNT & AUTO Routine 09/28/2017 5:42 AM CDT Results for this DIFFERENTIAL procedure are in the results section. PHOSPHORUS Routine 09/28/2017 5:42 AM CDT MAGNESIUM Routine 09/28/2017 5:42 AM CDT BASIC METABOLIC PANEL (7) Routine 09/28/2017 5:42 AM CDT POCT-GLUCOSE METER Routine 09/27/2017 9:45 PM CDT POCT-GLUCOSE METER Routine 09/27/2017 4:41 PM CDT POCT-GLUCOSE METER Routine 09/27/2017 12:32 PM CDT CBC W/PLT COUNT & AUTO Routine 09/27/2017 9:40 AM CDT Results for this DIFFERENTIAL procedure are in the results section. CBC W/PLT COUNT & AUTO Routine 09/27/2017 9:40 AM CDT Results for this DIFFERENTIAL procedure are in the results section. POCT-GLUCOSE METER Routine 09/27/2017 7:56 AM CDT PHOSPHORUS Routine 09/27/2017 6:15 AM CDT MAGNESIUM Routine 09/27/2017 6:15 AM CDT BASIC METABOLIC PANEL (7) Routine 09/27/2017 6:15 AM CDT POCT-GLUCOSE METER Routine 09/26/2017 9:26 PM CDT BODY FLUID CELL COUNT WITH Routine 09/26/2017 8:32 PM CDT Results for this DIFFERENTIAL procedure are in the results section. GRAM STAIN Routine 09/26/2017 8:32 PM CDT PERITONEAL DIALYSIS EFFLUENT Routine 09/26/2017 8:32 PM CDT Results for this CULTURE procedure are in the results section. POCT-GLUCOSE METER Routine 09/26/2017 5:06 PM CDT POCT-GLUCOSE METER Routine 09/26/2017 4:33 PM CDT POCT-GLUCOSE METER Routine 09/26/2017 12:15 PM CDT PREALBUMIN Routine 09/26/2017 10:54 AM CDT POCT-GLUCOSE METER Routine 09/26/2017 7:13 AM CDT LACTIC ACID, VENOUS, WHOLE STAT 09/26/2017 5:25 AM CDT Results for this BLOOD procedure are in the results section. CBC W/PLT COUNT & AUTO Routine 09/26/2017 5:22 AM CDT Results for this DIFFERENTIAL procedure are in the results section. PT/APTT Routine 09/26/2017 5:22 AM CDT CBC W/PLT COUNT & AUTO Routine 09/26/2017 5:22 AM CDT Results for this DIFFERENTIAL procedure are in the results section. PHOSPHORUS Routine 09/26/2017 5:22 AM CDT MAGNESIUM Routine 09/26/2017 5:22 AM CDT BASIC METABOLIC PANEL (7) Routine 09/26/2017 5:22 AM CDT CBC W/PLT COUNT & AUTO STAT 09/25/2017 10:42 PM CDT Results for this DIFFERENTIAL procedure are in the results section. TROPONIN I STAT 09/25/2017 10:42 PM CDT COMPREHENSIVE METABOLIC STAT 09/25/2017 10:42 PM CDT Results for this PANEL procedure are in the results section. LACTIC ACID, VENOUS, WHOLE Routine 09/25/2017 10:42 PM CDT Results for this BLOOD procedure are in the results section. CBC W/PLT COUNT & AUTO STAT 09/25/2017 10:42 PM CDT Results for this DIFFERENTIAL procedure are in the results section. ECG 12-LEAD Routine 09/25/2017 10:04 PM CDT ECG 12-LEAD Routine 09/25/2017 10:04 PM CDT Procedure Note - Interface, External Ris In - 09/25/2017 10:07 PM CDT Ventricular Rate 88 BPM Atrial Rate 88 BPM P-R Interval 138 ms QRS Duration 90 ms Q-T Interval 414 ms QTC Calculation(Bazett) 500 ms P Marcella 52 degrees R Marcella 57 degrees T Marcella 106 degrees Normal sinus rhythm Nonspecific ST and T wave abnormality Prolonged QT Abnormal ECG When compared with ECG of 25-SEP-2017 14:36, Questionable change in QRS axis POCT-GLUCOSE METER Routine 09/25/2017 9:38 PM CDT BLOOD CULTURE Routine 09/25/2017 4:45 PM CDT POCT-GLUCOSE METER Routine 09/25/2017 4:39 PM CDT XR CHEST 1 VIEW STAT 09/25/2017 3:50 PM CDT Results for this PORTABLE/BEDSIDE procedure are in the results section. HIV-1 ANTIGEN WITH HIV-1/2 Routine 09/25/2017 3:38 PM CDT Results for this ANTIBODY procedure are in the results section. BLOOD CULTURE Routine 09/25/2017 3:37 PM CDT ECG 12-LEAD Routine 09/25/2017 2:36 PM CDT Procedure Note - Interface, External Ris In - 09/25/2017 3:31 PM CDT Ventricular Rate 101 BPM Atrial Rate 101 BPM P-R Interval 150 ms QRS Duration 88 ms Q-T Interval 388 ms QTC Calculation(Bazett) 503 ms P Marcella 37 degrees R Marcella -1 degrees T Marcella 101 degrees Sinus tachycardia Nonspecific ST and T wave abnormality Abnormal ECG When compared with ECG of 22-SEP-2017 08:54, No significant change was found ECG 12-LEAD STAT 09/25/2017 2:36 PM CDT ECG 12-LEAD Routine 09/25/2017 2:35 PM CDT Procedure Note - Interface, External Ris In - 09/25/2017 10:07 PM CDT Ventricular Rate 101 BPM Atrial Rate 101 BPM P-R Interval 144 ms QRS Duration 88 ms Q-T Interval 372 ms QTC Calculation(Bazett) 482 ms P Marcella 40 degrees R Marcella 0 degrees T Marcella 105 degrees Poor data quality, interpretation may be adversely affected Sinus tachycardia T wave abnormality, consider lateral ischemia Abnormal ECG When compared with ECG of 22-SEP-2017 08:54, No significant change was found ECG 12-LEAD Routine 09/25/2017 2:35 PM CDT POCT-GLUCOSE METER Routine 09/25/2017 2:32 PM CDT POCT-GLUCOSE METER Routine 09/25/2017 11:35 AM CDT POCT-GLUCOSE METER Routine 09/25/2017 8:03 AM CDT CBC W/PLT COUNT & AUTO Routine 09/25/2017 2:56 AM CDT Results for this DIFFERENTIAL procedure are in the results section. CBC W/PLT COUNT & AUTO Routine 09/25/2017 2:56 AM CDT Results for this DIFFERENTIAL procedure are in the results section. PHOSPHORUS Routine 09/25/2017 2:56 AM CDT MAGNESIUM Routine 09/25/2017 2:56 AM CDT BASIC METABOLIC PANEL (7) Routine 09/25/2017 2:56 AM CDT POCT-GLUCOSE METER Routine 09/24/2017 8:47 PM CDT POCT-GLUCOSE METER Routine 09/24/2017 5:17 PM CDT POCT-GLUCOSE METER Routine 09/24/2017 12:12 PM CDT POCT-GLUCOSE METER Routine 09/24/2017 7:15 AM CDT CBC W/PLT COUNT & AUTO Routine 09/24/2017 4:48 AM CDT Results for this DIFFERENTIAL procedure are in the results section. CBC W/PLT COUNT & AUTO Routine 09/24/2017 4:48 AM CDT Results for this DIFFERENTIAL procedure are in the results section. PHOSPHORUS Routine 09/24/2017 4:48 AM CDT MAGNESIUM Routine 09/24/2017 4:48 AM CDT BASIC METABOLIC PANEL (7) Routine 09/24/2017 4:48 AM CDT POCT-GLUCOSE METER Routine 09/23/2017 10:58 PM CDT POCT-GLUCOSE METER Routine 09/23/2017 5:13 PM CDT POCT-GLUCOSE METER Routine 09/23/2017 12:39 PM CDT POCT-GLUCOSE METER Routine 09/23/2017 11:53 AM CDT POCT-GLUCOSE METER Routine 09/23/2017 7:41 AM CDT BLOOD GAS, VENOUS Routine 09/23/2017 7:24 AM CDT RPR Routine 09/23/2017 4:49 AM CDT CBC W/PLT COUNT & AUTO Routine 09/23/2017 4:48 AM CDT Results for this DIFFERENTIAL procedure are in the results section. VITAMIN B12 AND FOLATE Routine 09/23/2017 4:48 AM CDT TSH/FREE T4 IF INDICATED Routine 09/23/2017 4:48 AM CDT LACTIC ACID, VENOUS, WHOLE Routine 09/23/2017 4:48 AM CDT Results for this BLOOD procedure are in the results section. CBC W/PLT COUNT & AUTO Routine 09/23/2017 4:48 AM CDT Results for this DIFFERENTIAL procedure are in the results section. PHOSPHORUS Routine 09/23/2017 4:48 AM CDT MAGNESIUM Routine 09/23/2017 4:48 AM CDT BASIC METABOLIC PANEL (7) Routine 09/23/2017 4:48 AM CDT POCT-GLUCOSE METER Routine 09/22/2017 9:11 PM CDT POCT-GLUCOSE METER Routine 09/22/2017 5:25 PM CDT ARTERIAL (JOSHUA'S W/ DOPPLER) Routine 09/22/2017 4:07 PM CDT Results for this ONLY procedure are in the results section. POCT-GLUCOSE METER Routine 09/22/2017 11:28 AM CDT ECG 12-LEAD Routine 09/22/2017 8:54 AM CDT ECG 12-LEAD Routine 09/22/2017 8:54 AM CDT Procedure Note - Interface, External Ris In - 09/22/2017 8:56 AM CDT Ventricular Rate 95 BPM Atrial Rate 95 BPM P-R Interval 142 ms QRS Duration 86 ms Q-T Interval 396 ms QTC Calculation(Bazett) 497 ms P Marcella 76 degrees R Marcella 30 degrees T Marcella 96 degrees Normal sinus rhythm Abnormal QRS-T angle, consider primary T wave abnormality Prolonged QT Abnormal ECG When compared with ECG of 21-SEP-2017 16:10, Non-specific change in ST segment in Lateral leads Nonspecific T wave abnormality now evident in Lateral leads POCT-GLUCOSE METER Routine 09/22/2017 7:16 AM CDT LACTIC ACID, VENOUS, WHOLE Routine 09/22/2017 6:36 AM CDT Results for this BLOOD procedure are in the results section. CBC W/PLT COUNT & AUTO Routine 09/22/2017 1:33 AM CDT Results for this DIFFERENTIAL procedure are in the results section. CBC W/PLT COUNT & AUTO Routine 09/22/2017 1:33 AM CDT Results for this DIFFERENTIAL procedure are in the results section. PHOSPHORUS Routine 09/22/2017 1:33 AM CDT MAGNESIUM Routine 09/22/2017 1:33 AM CDT BASIC METABOLIC PANEL (7) Routine 09/22/2017 1:33 AM CDT POCT-GLUCOSE METER Routine 09/21/2017 8:52 PM CDT ECG 12-LEAD Routine 09/21/2017 4:10 PM CDT ECG 12-LEAD Routine 09/21/2017 4:10 PM CDT Procedure Note - Interface, External Ris In - 09/21/2017 4:17 PM CDT Ventricular Rate 79 BPM Atrial Rate 79 BPM P-R Interval 142 ms QRS Duration 80 ms Q-T Interval 408 ms QTC Calculation(Bazett) 467 ms P Marcella 75 degrees R Marcella 14 degrees T Marcella 42 degrees Normal sinus rhythm Normal ECG When compared with ECG of 21-SEP-2017 08:16, Non-specific change in ST segment in Lateral leads ECG 12-LEAD Routine 09/21/2017 4:08 Results for this PM CDT procedure are in the results section. POCT-GLUCOSE Routine 09/21/2017 3:26 Results for this METER PM CDT procedure are in the results section. REPORT OF 09/21/2017 2:19 PROCEDURE - PM CDT ENDOSCOPY URL TISSUE EXAM AP Routine 09/21/2017 2:00 Results for this PM CDT procedure are in the results section. UPPER 09/21/2017 12:00 Gastrointestinal ENDOSCOPY,BIOPSY PM CDT hemorrhage, unspecified gastrointestinal hemorrhage type Special Needs EGD W/ ANES ECG 12-LEAD Routine 09/21/2017 8:16 AM CDT Procedure Note - Interface, External Ris In - 09/21/2017 10:52 AM CDT Ventricular Rate 105 BPM Atrial Rate 105 BPM P-R Interval 142 ms QRS Duration 92 ms Q-T Interval 390 ms QTC Calculation(Bazett) 515 ms P Marcella 71 degrees R Marcella 16 degrees T Marcella 75 degrees Sinus tachycardia Otherwise normal ECG When compared with ECG of 20-SEP-2017 01:28, Questionable change in QRS axis T wave inversion no longer evident in Inferior leads Nonspecific T wave abnormality no longer evident in Lateral leads ECG 12-LEAD Routine 09/21/2017 8:16 AM CDT POCT-GLUCOSE METER Routine 09/21/2017 7:21 AM CDT CBC W/PLT COUNT & AUTO Routine 09/21/2017 4:54 AM CDT Results for this DIFFERENTIAL procedure are in the results section. CBC W/PLT COUNT & AUTO Routine 09/21/2017 4:54 AM CDT Results for this DIFFERENTIAL procedure are in the results section. PHOSPHORUS Routine 09/21/2017 4:54 AM CDT MAGNESIUM Routine 09/21/2017 4:54 AM CDT BASIC METABOLIC PANEL (7) Routine 09/21/2017 4:54 AM CDT POCT-GLUCOSE METER Routine 09/20/2017 8:23 PM CDT POCT-GLUCOSE METER Routine 09/20/2017 5:25 PM CDT POCT-GLUCOSE METER Routine 09/20/2017 11:49 AM CDT POCT-GLUCOSE METER Routine 09/20/2017 7:43 AM CDT ECG 12-LEAD Routine 09/20/2017 1:28 AM CDT Procedure Note - Interface, External Ris In - 09/20/2017 1:30 AM CDT Ventricular Rate 93 BPM Atrial Rate 93 BPM P-R Interval 134 ms QRS Duration 84 ms Q-T Interval 406 ms QTC Calculation(Bazett) 504 ms P Marcella 59 degrees R Marcella 85 degrees T Marcella 3 degrees Normal sinus rhythm Low voltage QRS Prolonged QT Abnormal ECG When compared with ECG of 20-SEP-2017 01:28, No significant change was found ECG 12-LEAD Routine 09/20/2017 1:28 AM CDT ECG 12-LEAD Routine 09/20/2017 1:28 AM CDT ECG 12-LEAD Routine 09/20/2017 1:28 AM CDT Procedure Note - Interface, External Ris In - 09/20/2017 1:30 AM CDT Ventricular Rate 92 BPM Atrial Rate 92 BPM P-R Interval 134 ms QRS Duration 84 ms Q-T Interval 396 ms QTC Calculation(Bazett) 489 ms P Marcella 64 degrees R Marcella 82 degrees T Marcella 16 degrees Normal sinus rhythm Low voltage QRS Borderline ECG When compared with ECG of 10-SEP-2017 15:07, Sinus rhythm has replaced Atrial flutter QRS voltage has decreased ST no longer depressed in Lateral leads T wave inversion now evident in Inferior leads T wave amplitude has decreased in Anterior leads Nonspecific T wave abnormality, improved in Lateral leads CBC W/PLT COUNT & AUTO Routine 09/20/2017 1:28 AM CDT Results for this DIFFERENTIAL procedure are in the results section. TROPONIN I STAT 09/20/2017 1:28 AM CDT CBC W/PLT COUNT & AUTO Routine 09/20/2017 1:28 AM CDT Results for this DIFFERENTIAL procedure are in the results section. PHOSPHORUS Routine 09/20/2017 1:28 AM CDT MAGNESIUM Routine 09/20/2017 1:28 AM CDT BASIC METABOLIC PANEL (7) Routine 09/20/2017 1:28 AM CDT POCT-GLUCOSE METER Routine 09/19/2017 9:05 PM CDT POCT-GLUCOSE METER Routine 09/19/2017 5:47 PM CDT POCT-GLUCOSE METER Routine 09/19/2017 5:19 PM CDT POCT-GLUCOSE METER Routine 09/19/2017 10:58 AM CDT POCT-GLUCOSE METER Routine 09/19/2017 7:23 AM CDT CBC W/PLT COUNT & AUTO Routine 09/19/2017 5:23 AM CDT Results for this DIFFERENTIAL procedure are in the results section. CBC W/PLT COUNT & AUTO Routine 09/19/2017 5:23 AM CDT Results for this DIFFERENTIAL procedure are in the results section. PHOSPHORUS Routine 09/19/2017 5:23 AM CDT MAGNESIUM Routine 09/19/2017 5:23 AM CDT BASIC METABOLIC PANEL (7) Routine 09/19/2017 5:23 AM CDT POCT-GLUCOSE METER Routine 09/18/2017 8:24 PM CDT POCT-GLUCOSE METER Routine 09/18/2017 7:23 PM CDT POCT-GLUCOSE METER Routine 09/18/2017 5:31 PM CDT POCT-GLUCOSE METER Routine 09/18/2017 5:[address] BRAIN WITH/WITHOUT IV Routine 09/18/2017 3:10 PM CDT Results for this CONTRAST procedure are in the results section. CT ABDOMEN/PELVIS WITH IV Routine 09/18/2017 3:10 PM CDT Results for this CONTRAST procedure are in the results section. CT CHEST WITH IV CONTRAST Routine 09/18/2017 3:10 PM CDT POCT-GLUCOSE METER Routine 09/18/2017 11:08 AM CDT POCT-GLUCOSE METER Routine 09/18/2017 7:08 AM CDT CBC W/PLT COUNT & AUTO Routine 09/18/2017 5:44 AM CDT Results for this DIFFERENTIAL procedure are in the results section. CBC W/PLT COUNT & AUTO Routine 09/18/2017 5:44 AM CDT Results for this DIFFERENTIAL procedure are in the results section. PHOSPHORUS Routine 09/18/2017 5:44 AM CDT MAGNESIUM Routine 09/18/2017 5:44 AM CDT BASIC METABOLIC PANEL (7) Routine 09/18/2017 5:44 AM CDT POCT-GLUCOSE METER Routine 09/17/2017 11:00 PM CDT POCT-GLUCOSE METER Routine 09/17/2017 4:28 PM CDT POCT-GLUCOSE METER Routine 09/17/2017 12:26 PM CDT POCT-GLUCOSE METER Routine 09/17/2017 9:08 AM CDT (CELLAVISION MANUAL DIFF) Routine 09/17/2017 5:10 AM CDT CBC W/PLT COUNT & AUTO Routine 09/17/2017 5:10 AM CDT Results for this DIFFERENTIAL procedure are in the results section. CBC W/PLT COUNT & AUTO Routine 09/17/2017 5:10 AM CDT Results for this DIFFERENTIAL procedure are in the results section. PHOSPHORUS Routine 09/17/2017 5:10 AM CDT MAGNESIUM Routine 09/17/2017 5:10 AM CDT BASIC METABOLIC PANEL (7) Routine 09/17/2017 5:10 AM CDT POCT-GLUCOSE METER Routine 09/16/2017 10:04 PM CDT POCT-GLUCOSE METER Routine 09/16/2017 4:25 PM CDT POCT-GLUCOSE METER Routine 09/16/2017 12:25 PM CDT POCT-GLUCOSE METER Routine 09/16/2017 8:00 AM CDT CBC W/PLT COUNT & AUTO Routine 09/16/2017 4:53 AM CDT Results for this DIFFERENTIAL procedure are in the results section. VANCOMYCIN LEVEL, RANDOM Routine 09/16/2017 4:53 AM CDT CBC W/PLT COUNT & AUTO Routine 09/16/2017 4:53 AM CDT Results for this DIFFERENTIAL procedure are in the results section. PHOSPHORUS Routine 09/16/2017 4:53 AM CDT MAGNESIUM Routine 09/16/2017 4:53 AM CDT BASIC METABOLIC PANEL (7) Routine 09/16/2017 4:53 AM CDT POCT-GLUCOSE METER Routine 09/15/2017 8:18 PM CDT POCT-GLUCOSE METER Routine 09/15/2017 5:18 PM CDT POCT-GLUCOSE METER Routine 09/15/2017 12:47 PM CDT POCT-GLUCOSE METER Routine 09/15/2017 7:47 AM CDT POCT-GLUCOSE METER Routine 09/15/2017 7:14 AM CDT CBC W/PLT COUNT & AUTO Routine 09/15/2017 6:10 AM CDT Results for this DIFFERENTIAL procedure are in the results section. PTH, INTACT Routine 09/15/2017 6:10 AM CDT LACTIC ACID, VENOUS, WHOLE Routine 09/15/2017 6:10 AM CDT Results for this BLOOD procedure are in the results section. VANCOMYCIN LEVEL, RANDOM Routine 09/15/2017 6:10 AM CDT CBC W/PLT COUNT & AUTO Routine 09/15/2017 6:10 AM CDT Results for this DIFFERENTIAL procedure are in the results section. PHOSPHORUS Routine 09/15/2017 6:10 AM CDT MAGNESIUM Routine 09/15/2017 6:10 AM CDT BASIC METABOLIC PANEL (7) Routine 09/15/2017 6:10 AM CDT POCT-GLUCOSE METER Routine 09/14/2017 8:39 PM CDT POCT-GLUCOSE METER Routine 09/14/2017 7:29 PM CDT POCT-GLUCOSE METER Routine 09/14/2017 7:22 PM CDT MR LOWER EXTREMITY WITHOUT STAT 09/14/2017 6:45 PM CDT Results for this CONTRAST RIGHT procedure are in the results section. POCT-GLUCOSE METER Routine 09/14/2017 11:11 AM CDT POCT-GLUCOSE METER Routine 09/14/2017 7:12 AM CDT URINALYSIS W/ REFLEX URINE Routine 09/14/2017 4:00 AM CDT Results for this CULTURE procedure are in the results section. (CELLAVISION MANUAL DIFF) Routine 09/14/2017 3:53 AM CDT CBC W/PLT COUNT & AUTO Routine 09/14/2017 3:53 AM CDT Results for this DIFFERENTIAL procedure are in the results section. VANCOMYCIN LEVEL, RANDOM Routine 09/14/2017 3:53 AM CDT CBC W/PLT COUNT & AUTO Routine 09/14/2017 3:53 AM CDT Results for this DIFFERENTIAL procedure are in the results section. PHOSPHORUS Routine 09/14/2017 3:53 AM CDT MAGNESIUM Routine 09/14/2017 3:53 AM CDT BASIC METABOLIC PANEL (7) Routine 09/14/2017 3:53 AM CDT POCT-GLUCOSE METER Routine 09/13/2017 11:17 PM CDT BODY FLUID CELL COUNT WITH Routine 09/13/2017 10:21 PM CDT Results for this DIFFERENTIAL procedure are in the results section. BODY FLUID CULTURE + GRAM Routine 09/13/2017 10:21 PM CDT Results for this STAIN procedure are in the results section. POCT-LACTIC ACID, ARTERIAL Routine 09/13/2017 6:05 PM CDT (CELLAVISION MANUAL DIFF) STAT 09/13/2017 6:04 PM CDT CBC W/PLT COUNT & AUTO STAT 09/13/2017 6:04 PM CDT Results for this DIFFERENTIAL procedure are in the results section. BASIC METABOLIC PANEL (7) STAT 09/13/2017 6:04 PM CDT CBC W/PLT COUNT & AUTO STAT 09/13/2017 6:04 PM CDT Results for this DIFFERENTIAL procedure are in the results section. POCT-HEMOGLOBIN Routine 09/13/2017 6:01 PM CDT POCT-HEMATOCRIT Routine 09/13/2017 6:01 PM CDT POCT-CALCIUM IONIZED Routine 09/13/2017 6:01 PM CDT POCT-GLUCOSE Routine 09/13/2017 6:01 PM CDT POCT-POTASSIUM Routine 09/13/2017 6:01 PM CDT POCT-SODIUM Routine 09/13/2017 6:01 PM CDT POCT-BLOOD GASES, ARTERIAL Routine 09/13/2017 6:01 PM CDT POCT-GLUCOSE METER Routine 09/13/2017 4:57 PM CDT BLOOD CULTURE Routine 09/13/2017 12:54 PM CDT LACTIC ACID, VENOUS, WHOLE Routine 09/13/2017 12:46 PM CDT Results for this BLOOD procedure are in the results section. BLOOD CULTURE Routine 09/13/2017 12:46 PM CDT POCT-GLUCOSE METER Routine 09/13/2017 12:23 PM CDT POCT-GLUCOSE METER Routine 09/13/2017 7:53 AM CDT CBC W/PLT COUNT & AUTO Routine 09/13/2017 5:51 AM CDT Results for this DIFFERENTIAL procedure are in the results section. CBC W/PLT COUNT & AUTO Routine 09/13/2017 5:51 AM CDT Results for this DIFFERENTIAL procedure are in the results section. PHOSPHORUS Routine 09/13/2017 5:51 AM CDT MAGNESIUM Routine 09/13/2017 5:51 AM CDT BASIC METABOLIC PANEL (7) Routine 09/13/2017 5:51 AM CDT POCT-GLUCOSE METER Routine 09/12/2017 4:27 PM CDT POCT-GLUCOSE METER Routine 09/12/2017 11:47 AM CDT POCT-GLUCOSE METER Routine 09/12/2017 7:16 AM CDT CBC W/PLT COUNT & AUTO Routine 09/12/2017 6:00 AM CDT Results for this DIFFERENTIAL procedure are in the results section. VANCOMYCIN LEVEL, RANDOM Routine 09/12/2017 6:00 AM CDT CBC W/PLT COUNT & AUTO Routine 09/12/2017 6:00 AM CDT Results for this DIFFERENTIAL procedure are in the results section. PHOSPHORUS Routine 09/12/2017 6:00 AM CDT MAGNESIUM Routine 09/12/2017 6:00 AM CDT BASIC METABOLIC PANEL (7) Routine 09/12/2017 6:00 AM CDT POCT-GLUCOSE METER Routine 09/11/2017 9:03 PM CDT POCT-GLUCOSE METER Routine 09/11/2017 4:31 PM CDT POCT-GLUCOSE METER Routine 09/11/2017 9:34 AM CDT CBC W/PLT COUNT & AUTO Routine 09/11/2017 5:19 AM CDT Results for this DIFFERENTIAL procedure are in the results section. C-REACTIVE PROTEIN Routine 09/11/2017 5:19 AM CDT VANCOMYCIN LEVEL, RANDOM Routine 09/11/2017 5:19 AM CDT CBC W/PLT COUNT & AUTO Routine 09/11/2017 5:19 AM CDT Results for this DIFFERENTIAL procedure are in the results section. PHOSPHORUS Routine 09/11/2017 5:19 AM CDT MAGNESIUM Routine 09/11/2017 5:19 AM CDT BASIC METABOLIC PANEL (7) Routine 09/11/2017 5:19 AM CDT POCT-GLUCOSE METER Routine 09/10/2017 8:43 PM CDT POCT-GLUCOSE METER Routine 09/10/2017 5:05 PM CDT ECG 12-LEAD Routine 09/10/2017 3:07 PM CDT ECG 12-LEAD Routine 09/10/2017 3:07 PM CDT Procedure Note - Interface, External Ris In - 09/10/2017 8:29 PM CDT Ventricular Rate 108 BPM Atrial Rate 216 BPM QRS Duration 88 ms Q-T Interval 370 ms QTC Calculation(Bazett) 495 ms P Marcella 90 degrees R Marcella 27 degrees T Marcella 89 degrees Atrial flutter with 2:1 A-V conduction Nonspecific ST and T wave abnormality Abnormal ECG When compared with ECG of 10-SEP-2017 15:06, Atrial flutter has replaced Sinus rhythm ECG 12-LEAD Routine 09/10/2017 3:06 PM CDT Procedure Note - Interface, External Ris In - 09/10/2017 8:28 PM CDT Ventricular Rate 108 BPM Atrial Rate 108 BPM P-R Interval 200 ms QRS Duration 88 ms Q-T Interval 374 ms QTC Calculation(Bazett) 501 ms R Marcella 27 degrees T Marcella 88 degrees Sinus tachycardia Nonspecific ST and T wave abnormality Abnormal ECG No previous ECGs available POCT-GLUCOSE METER Routine 09/10/2017 11:56 AM CDT TISSUE EXAM AP Routine 09/10/2017 9:12 AM CDT POCT-GLUCOSE METER Routine 09/10/2017 7:17 AM CDT CBC W/PLT COUNT & AUTO Routine 09/10/2017 4:32 AM CDT Results for this DIFFERENTIAL procedure are in the results section. VANCOMYCIN LEVEL, RANDOM Routine 09/10/2017 4:32 AM CDT CBC W/PLT COUNT & AUTO Routine 09/10/2017 4:32 AM CDT Results for this DIFFERENTIAL procedure are in the results section. PHOSPHORUS Routine 09/10/2017 4:32 AM CDT MAGNESIUM Routine 09/10/2017 4:32 AM CDT BASIC METABOLIC PANEL (7) Routine 09/10/2017 4:32 AM CDT POCT-GLUCOSE METER Routine 09/09/2017 9:44 PM CDT SURGICALLY OBTAINED CULTURE STAT 09/09/2017 7:31 PM CDT Results for this + GRAM STAIN procedure are in the results section. FUNGUS CULTURE + SMEAR STAT 09/09/2017 7:31 PM CDT AFB CULTURE + SMEAR STAT 09/09/2017 7:31 PM CDT POCT-GLUCOSE METER Routine 09/09/2017 5:10 PM CDT XR LEG/TIBIA & FIBULA RIGHT MELIDA 09/09/2017 3:56 PM CDT Results for this 2 VIEWS procedure are in the results section. XR FOOT LEFT 3 VIEW MELIDA 09/09/2017 3:56 PM CDT XR FEMUR 2 VIEWS RIGHT MELIDA 09/09/2017 3:56 PM CDT RHYTHM STRIP - SCAN 09/09/2017 2:12 PM CDT POCT-GLUCOSE METER Routine 09/09/2017 11:52 AM CDT POCT-GLUCOSE METER Routine 09/09/2017 7:30 AM CDT CBC W/PLT COUNT & AUTO Routine 09/09/2017 4:02 AM CDT Results for this DIFFERENTIAL procedure are in the results section. RETICULOCYTE COUNT Routine 09/09/2017 4:02 AM CDT VITAMIN B12 AND FOLATE Routine 09/09/2017 4:02 AM CDT FERRITIN Routine 09/09/2017 4:02 AM CDT IRON, TIBC, % SAT. (WITHOUT Routine 09/09/2017 4:02 AM CDT Results for this FERRITIN) procedure are in the results section. VANCOMYCIN LEVEL, RANDOM Routine 09/09/2017 4:02 AM CDT CBC W/PLT COUNT & AUTO Routine 09/09/2017 4:02 AM CDT Results for this DIFFERENTIAL procedure are in the results section. PHOSPHORUS Routine 09/09/2017 4:02 AM CDT MAGNESIUM Routine 09/09/2017 4:02 AM CDT BASIC METABOLIC PANEL (7) Routine 09/09/2017 4:02 AM CDT PERITONEAL DIALYSIS Routine 09/08/2017 8:02 PM CDT Results for this EFFLUENT CULTURE procedure are in the results section. BODY FLUID CELL COUNT WITH Routine 09/08/2017 8:02 PM CDT Results for this DIFFERENTIAL procedure are in the results section. BODY FLUID CULTURE + GRAM Routine 09/08/2017 8:02 PM CDT Results for this STAIN procedure are in the results section. ECHOCARDIOGRAM REPORT - 09/08/2017 5:50 PM CDT SCAN POCT-GLUCOSE METER Routine 09/08/2017 5:18 PM CDT POCT-GLUCOSE METER Routine 09/08/2017 3:44 PM CDT 2D ECHO W/ DOPPLER Routine 09/08/2017 2:41 PM CDT Results for this (CW/PW/COLOR) procedure are in the results section. POCT-GLUCOSE METER Routine 09/08/2017 12:43 PM CDT POCT-GLUCOSE METER Routine 09/08/2017 8:06 AM CDT BLOOD CULTURE Routine 09/08/2017 4:39 AM CDT PTH, INTACT Routine 09/08/2017 4:31 AM CDT HEMOGLOBIN A1C Routine 09/08/2017 4:31 AM CDT CBC W/PLT COUNT & AUTO Routine 09/08/2017 4:30 AM CDT Results for this DIFFERENTIAL procedure are in the results section. VANCOMYCIN LEVEL, RANDOM Routine 09/08/2017 4:30 AM CDT CBC W/PLT COUNT & AUTO Routine 09/08/2017 4:30 AM CDT Results for this DIFFERENTIAL procedure are in the results section. PHOSPHORUS Routine 09/08/2017 4:30 AM CDT MAGNESIUM Routine 09/08/2017 4:30 AM CDT BASIC METABOLIC PANEL (7) Routine 09/08/2017 4:30 AM CDT BLOOD CULTURE Routine 09/08/2017 4:30 AM CDT POCT-GLUCOSE METER Routine 09/07/2017 11:47 PM CDT after 03/15/2017 Results RHYTHM STRIP - SCAN (10/08/2017 12:30 PM CDT)Only the most recent of2 resultswithin the time period is included. Narrative Performed At POC-Glucose meter (10/07/2017 7:33 AM CDT)Only the most recent of122 resultswithin the time period is included. POC-Glucose Meter 141 (H)Comment: TESTED AT 70 - 110 mg/dL [facility] [address] [facility] [id number] Specimen Blood Performing Organization Address City/State/Zipcode Phone Number [facility] [address] [place], [place] [id number] [phone] CENTER CBC with platelet count + automated diff (10/07/2017 6:22 AM CDT)Only the most recent of32 resultswithin the time period is included. WBC 8.6 3.5 - 10.5 K/L [facility] RBC 2.68 (L) 3.93 - 5.22 M/L [facility] Hemoglobin 7.8 (L) 11.2 - 15.7 GM/DL [facility] Hematocrit 25.7 (L) 34.1 - 44.9 % [facility] MCV 95.9 (H) 79.4 - 94.8 fL [facility] MCH 29.1 25.6 - 32.2 pg [facility] MCHC 30.4 (L) 32.2 - 35.5 GM/DL [facility] RDW 14.4 11.7 - 14.4 % [facility] Platelets 294 150 - 450 K/CU MM [facility] MPV 9.8 9.4 - 12.3 fL [facility] nRBC 2 (H) 0 - 0 /100 WBC [facility] % Neutros 63 % [facility] % Lymphs 21 % [facility] % Monos 11 % [facility] % Eos 4 % [facility] % Baso 1 % [facility] # Neutros 5.39 1.56 - 6.13 K/L [facility] # Lymphs 1.78 1.18 - 3.74 K/L [facility] # Monos 0.92 (H) 0.24 - 0.36 K/L [facility] # Eos 0.32 0.04 - 0.36 K/L [facility] # Baso 0.06 0.01 - 0.08 K/L [facility] Immature Granulocytes-Relative 1 0 - 1 % [facility] Specimen Blood Performing Organization Address City/State/Zipcode Phone Number [address] [address] [phone] CENTER Phosphorus (10/07/2017 6:22 AM CDT)Only the most recent of30 resultswithin the time period is included. Phosphorus 3.5 2.3 - 4.7 mg/dL [facility] Specimen Blood Performing Organization Address City/[facility]/Zipcode Phone Number [address] [address] [phone] CENTER Magnesium (10/07/2017 6:22 AM CDT)Only the most recent of30 resultswithin the time period is included. Magnesium 2.0 1.6 - 2.6 mg/dL [facility] Specimen Blood Performing Organization Address City/[facility]/Zipcode Phone Number [address] [address] CENTER Basic metabolic panel (10/07/2017 6:22 AM CDT)Only the most recent of31 resultswithin the time period is included. Sodium 133 (L) 136 - 145 meq/L [facility] Potassium 3.2 (L) 3.5 - 5.1 meq/L [facility] Chloride 95 (L) 98 - 107 meq/L [facility] CO2 29 22 - 29 meq/L [facility] BUN 38 (H) 7 - 21 mg/dL [facility] Creatinine 6.46 (H) 0.57 - 1.25 mg/dL [facility] Glucose 125 (H) 70 - 105 mg/dL [facility] Calcium 9.4 8.4 - 10.2 mg/dL [facility] EGFR 6Comment: ESTIMATED GFR IS mL/min/1.73 sq m [facility] NOT ACCURATE CREATININE [facility] CLEARANCE IN PREDICTING GLOMERULAR FILTRATION RATE. ESTIMATED GFR IS NOT APPLICABLE FOR DIALYSIS PATIENTS. Specimen Blood Performing Organization Address City/State/Zipcode Phone Number [facility] [address] [place] [address] CENTER EEG AWAKE AND DROWSY (10/05/2017 1:50 PM CDT) Narrative Performed At Date(s) of EE10/05/2017 GE RIS DATE OF REPORT: 10/05/2017 ACC: [id number] EEG Number: [id number] Start time: 15:28 Stop time: 15:50 ICD-10: R41.82 CPT Code:09219 HISTORY:72 y/o with PMHx of ESRD on [...] recommended. Bozena Lawrence MD Department of Neurology [facility] Procedure Note Interface, External Ris In - 10/05/2017 3:43 PM CDT Date(s) of EE10/05/2017 DATE OF REPORT: 10/05/2017 ACC: [id number] EEG Number: [id number] Start time: 15:28 Stop time: 15:50 ICD-10: R41.82 CPT Code: 13970 HISTORY: 72 y/o with PMHx of ESRD [...] recommended. Bozena Lawrence MD Department of Neurology [facility] Performing Organization Address City/State/Zipcode Phone Number [facility] EEG AWAKE AND DROWSY (10/02/2017 3:47 PM CDT) Narrative Performed At Date(s) of EE10/02/2017 GE RIS DATE OF REPORT: 10/02/2017 ACC: [id number] EEG Number: [id number] Start time: 15:25 Stop time: 15:47 ICD-10: R41.82 CPT Code:94386 HISTORY:72 yo with PMHx of ESRD on PD, HTN, IDDM admitted with cellulitis now with AMS and visual hallucinations. MEDICATIONS THAT COULD AFFECT EEG:None TECHNICAL SUMMARY: This is a digital video-EEG recorded with 32 input channels reviewed with bipolar and referential montages using the modified Uniphore system nomenclature. DESCRIPTION OF RECORD: During the maximally alert state a 9 Hz posterior dominant rhythm was seen that was symmetric, reactive to eye opening and well regulated. The background was symmetric and organized with an anterior posterior voltage/frequency gradient. Drowsiness was characterized by alpha attenuation and increased frontocentral theta.Stage 2 sleep was not recorded. SIGNIFICANT VIDEO EVENTS: None SIGNIFICANT ELECTROCARDIOGRAM EVENTS: None HV: Hyperventilation was not performed. PHOTIC STIMULATION:Photic stimulation was done from 1-31 Hz; no photic driving was seen; photoparoxysmal responses were absent. IMPRESSION: Normal Awake and Drowsy EEG CLINICAL CORRELATION: An EEG without epileptiform discharges does not exclude the possibility of epilepsy.If the clinical suspicion of epilepsy remains, consider additional EEG recordings. Kathia Morrow MD Neurophysiology/Epilepsy Fellow Attending note: I personally reviewed this EEG record in its entirety and I agree with the details of this report. Orquidea Robert MD Attending Neurophysiologist [facility] Procedure Note Interface, External Ris In - 10/02/2017 5:52 PM CDT Date(s) of EE10/02/2017 DATE OF REPORT: 10/02/2017 ACC: [id number] EEG Number: [id number] Start time: 15:25 Stop time: 15:47 ICD-10: R41.82 CPT Code: 80092 HISTORY: 72 yo with PMHx of ESRD on PD, HTN, IDDM admitted with cellulitis now with AMS and visual hallucinations. MEDICATIONS THAT COULD AFFECT EEG: None TECHNICAL SUMMARY: This is a digital video-EEG recorded with 32 input channels reviewed with bipolar and referential montages using the modified Uniphore system nomenclature. DESCRIPTION OF RECORD: During the maximally alert state a 9 Hz posterior dominant rhythm was seen that was symmetric, reactive to eye opening and well regulated. The background was symmetric and organized with an anterior posterior voltage/frequency gradient. Drowsiness was characterized by alpha [...] remains, consider additional EEG recordings. Kathia Morrow MD Neurophysiology/Epilepsy Fellow Attending note: I personally reviewed this EEG record in its entirety and I agree with the details of this report. Orquidea Robert MD Attending Neurophysiologist [facility] Performing Organization Address [facility] Phone Number GE RIS Lactic acid, venous, whole blood (10/02/2017 6:10 AM CDT)Only the most recent of8 resultswithin the time period is included. Lactate, Venous 2.6 (H)Comment: Specimen 0.5 - 2.2 mmol/L [facility] slightly hemolyzed [facility]ENTER Specimen Blood Narrative Performed At [facility] Effective 07/04/2015: Units/Reference Range Change New: 0.5-2.2 mmol/LPrevious: 5-20 mg/dL Performing Organization Address [facility] Phone Number [facility] MEDICAL [address] [place] [phone] CENTER POCT-HEMATOCRIT (10/02/2017 5:20 AM CDT)Only the most recent of2 resultswithin the time period is included. POC-Hematocrit 27 (L)Comment: TESTED AT 36 - 45 % [facility] [address] [place] [address] CENTER [id number] Specimen Blood Performing Organization Address [facility] Services[facility] Phone Number [address] [address] [place] POCT-HEMOGLOBIN (10/02/2017 5:20 AM CDT)Only the most recent of2 resultswithin the time period is included. POC-Hemoglobin 9.2 (L)Comment: TESTED AT 12.0 - 15.0 g/dL [address] [address]CJQHAV AT [address] [address] Specimen Blood Performing Organization Address [facility] Phone Number [address] [address] [phone] [place] POCT-GLUCOSE (10/02/2017 5:20 AM CDT)Only the most recent of2 resultswithin the time period is included. POC-Glucose 254 (H)Comment: TESTED AT 70 - 110 mg/dL [address] [address] Specimen Blood Performing Organization Address [facility] Phone Number [address] [address] [place] POC-Sodium (10/02/2017 5:20 AM CDT)Only the most recent of2 resultswithin the time period is included. POC-Sodium 137Comment: TESTED AT [facility] 135 - 148 meq/L [address] [address] Specimen Blood Performing Organization Address [facility] Phone Number [address] [address] [phone] [place] POC-Potassium (10/02/2017 5:20 AM CDT)Only the most recent of2 resultswithin the time period is included. POC-Potassium 2.8 (L)Comment: TESTED AT 3.6 - 5.5 meq/L [address] [address] Specimen Blood Performing Organization Address [facility] Servicescode Phone Number [facility] [address] [address] [place] POC-Calcium ionized (10/02/2017 5:20 AM CDT)Only the most recent of2 resultswithin the time period is included. POC-Calcium Ionized 1.19Comment: TESTED AT 1.12 - 1.27 mmol/L [place] [address] Specimen Blood Performing Organization Address City/[facility] Servicescode Phone Number [address] [address] [place] POC-Blood gases, arterial (10/02/2017 5:20 AM CDT)Only the most recent of2 resultswithin the time period is included. Temp. Celsius-POC 36.1 [facility] FIO2-POC 21Comment: TESTED AT [address] [address] pH, Arterial-POC 7.480 (H) 7.350 - 7.450 [facility] PCO2, Arterial-POC 36.6 35.0 - 45.0 mm Hg [facility] PO2, Arterial-POC 56.0 (L) 80.0 - 90.0 mm Hg [facility] SO2, Arterial-POC 92.0 (L) 96.0 - 97.0 % [facility] HCO3, Arterilal-POC 27.5 21.0 - 29.0 meq/L [facility] BE, Arterial-POC 4.0 (H) -2.0 - 3.0 meq/L [facility] Specimen Blood Performing Organization Address City/[facility] Servicescode Phone Number [address] [phone] [place] Procalcitonin (10/02/2017 5:19 AM CDT) Procalcitonin 0.67 (H) <0.05 ng/mL [facility] Specimen Blood Narrative Performed At [facility] SEPSIS RISK (ng/mL) Low:0.05-0.50 Intermediate: 0.51-2.00 High: >=2.01 Performing Organization Address City/State/Zipcode Phone Number [address] [address] CENTER Blood culture (10/02/2017 5:18 AM CDT)Only the most recent of8 resultswithin the time period is included. Result No growth in 5 days [facility] Specimen Blood - Arm, Right Performing Organization Address [facility]/Zipcode Phone Number [address] [address] [phone] [place] XR chest 1 view portable / bedside (10/02/2017 5:10 AM CDT)Only the most recent of2 resultswithin the time period is included. Narrative Performed At FINAL REPORT GE RIS RAD, CHEST, 1 VIEW, NON DEPT INDICATION: Hypotension COMPARISON: Chest x-ray 6 days ago TECHNIQUE: Single frontal view of the chest. IMPRESSION: Cardiomediastinal silhouette within normal limits allowing for patient rotation to the left. No overt consolidative or congestive change. No acute osseous abnormality. Signed: Ajith Jackson MD Report Verified Date/Time:10/02/2017 05:16:31 Reading Location: [facility] C013 Transitional Reading Room Procedure Note Interface, External [...] Report Verified Date/Time: 10/02/2017 05:16:31 Reading Location: [facility] C0[facility] Transitional Reading Room Performing Organization Address City/State/Zipcode Phone Number [employer] POC-Lactic Acid, Venous (10/02/2017 4:47 AM CDT) POC-Lactic Acid, Venous 3.0 (H)Comment: 0.9 - 1.7 mmol/L [facility] TESTED AT [facility] [address] [facility] [place] [address] Specimen Blood Performing Organization Address City/[facility]/Zipcode Phone Number [address] [address] C[place] MR brain without IV contrast (10/01/2017 4:24 PM CDT) Narrative Performed At FINAL REPORT [facility] MRI brain Comparison: Head CT September 18, [...] Watts MD Report Verified Date/Time: 10/01/2017 18:04:34 Performing Organization Address [facility] Phone Number [facility] US abdomen limited (09/29/2017 1:14 PM CDT) Narrative Performed At FINAL REPORT [facility] Limited abdominal ultrasound Clinical History: Delirium Technique: Limited abdominal ultrasound is performed in all four quadrants to assess for presence of ascites in anticipation of paracentesis. No significant ascites identified. Impression: No significant ascites. Paracentesis was not performed. Signed: Niko Osullivan MD Report Verified Date/Time:09/29/2017 13:53:14 Reading Location: [address] Ultrasound Reading Room Procedure Note Interface, [...] Report Verified Date/Time: 09/29/2017 13:53:14 Reading Location: [address] Ultrasound Reading Room Performing Organization Address [facility]/State/Zipcode Phone Number [facility] ECG 12 lead (09/29/2017 8:18 AM CDT)Only the most recent of12 resultswithin the time period is included. Narrative Performed At Ventricular Rate 122 BPM GE MUSE Atrial Rate 122 BPM P-R Interval 142 ms QRS Duration 88 ms Q-T Interval 334 ms QTC Calculation(Bazett) 475 ms P Marcella 72 degrees R Marcella 0 degrees T Marcella [address] & T [...] 334 ms QTC Calculation(Bazett) 475 ms P Marcella 72 degrees R Marcella 0 degrees T [place] [address] & T wave abnormality, consider lateral ischemia Abnormal ECG When compared with ECG of 28-SEP-2017 11:36, No significant change was found Confirmed by MD Taylor Roberto ([id number]) on 09/29/2017 2:56:17 PM Performing Organization Address [facility] Servicescooh Phone Number [employer] PT/aPTT (09/28/2017 2:43 PM CDT)Only the most recent of2 resultswithin the time period is included. Protime 15.3 (H) 11.7 - 14.7 seconds [facility] INR 1.2 <=5.9 [facility] PTT 26.7 22.5 - 36.0 seconds [facility] Specimen Blood - Arm, Right Narrative Performed At [facility] RECOMMENDED COUMADIN/WARFARIN INR THERAPY RANGES STANDARD DOSE: 2.0 - 3.0 Includes: PROPHYLAXIS for venous thrombosis, systemic embolization; TREATMENT for venous thrombosis and/or pulmonary embolus. HIGH RISK: Target INR is 2.5-3.5 for patients with mechanical heart valves. Performing Organization Address City/State/Zipcode Phone Number [address] [address] C[place] Vancomycin level, random (09/28/2017 5:42 AM CDT)Only the most recent of9 resultswithin the time period is included. Vancomycin Rm 23.7 ug/mL [facility] Specimen Blood - Arm, Right Narrative Performed At [facility] Reference Range: No Normals Performing Organization Address [facility] Servicescode Phone Number [address] [address] [place] Peritoneal Dialysis Effluent Culture (09/26/2017 8:32 PM CDT)Only the most recent of2 resultswithin the time period is included. Result No growth [facility] Specimen Body Fluid - Peritoneal Dialysis Fluid Performing Organization Address [facility] Servicescode Phone Number [address] [address] [place] Gram stain (09/26/2017 8:32 PM CDT) Gram Stain Result <1+ WBCs [facility] Gram Stain Result No organisms seen [facility] Specimen Body Fluid - Peritoneal Dialysis Fluid Performing Organization Address [facility] Servicescode Phone Number [address] [address] C[place] Body fluid cell count with differential (09/26/2017 8:32 PM CDT)Only the most recent of3 resultswithin the time period is included. Appearance Clear Clear [facility] Color Colorless Colorless, Straw [facility] RBCs 1 <=1 /cu mm [facility] Adjusted WBC Count 5 <=5 /cu mm [facility] Lining Cells 0 <=1 /cu mm [facility] % Segs 10 % [facility] % Lymphs 40 % [facility] % Monos 50 % [facility] % Eos 0 % [facility] % Baso 0 % [facility] Container Body Fluid EDTA Tube [facility] Specimen Body Fluid - Peritoneal Dialysis Fluid Performing Organization Address [facility] Servicescode Phone Number [address] [address] [place] Prealbumin (09/26/2017 10:54 AM CDT) Prealbumin 33 14 - 45 mg/dL [facility] Specimen Blood - Arm, Left Performing Organization Address [facility] Servicescooh Phone Number [address] [address] [place] Troponin I (09/25/2017 10:42 PM CDT)Only the most recent of2 resultswithin the time period is included. Troponin I 0.10 (H) 0.00 - 0.03 ng/mL [facility] Specimen Blood Narrative Performed At [facility] Troponin I (TnI) levels must be interpreted [...] acidosis, acute neurological disease, and persistent tachyarrhythmia. Performing Organization Address City/[facility] Servicescode Phone Number [address] [address] [place] Comprehensive metabolic panel (09/25/2017 10:42 PM CDT) Protein, Total 6.2 6.0 - 8.3 gm/dL [facility] Albumin 2.6 (L) 3.5 - 5.0 g/dL [facility] Alkaline Phosphatase 105 40 - 150 U/L [facility] Total Bilirubin 0.5 0.2 - 1.2 mg/dL [facility] Sodium 133 (L) 136 - 145 meq/L [facility] Potassium 3.6 3.5 - 5.1 meq/L [facility] Chloride 95 (L) 98 - 107 meq/L [facility] CO2 23 22 - 29 meq/L [facility] BUN 46 (H) 7 - 21 mg/dL [facility] Creatinine 7.11 (H) 0.57 - 1.25 mg/dL [facility] Glucose 150 (H) 70 - 105 mg/dL [facility] Calcium 8.6 8.4 - 10.2 mg/dL [facility] AST 6 5 - 34 U/L [facility] ALT <6 (L) 6 - 55 U/L [facility] EGFR 6Comment: ESTIMATED GFR mL/min/1.73 sq m [facility] IS NOT ACCURATE [facility] CREATININE CLEARANCE IN PREDICTING GLOMERULAR FILTRATION RATE. ESTIMATED GFR IS NOT APPLICABLE FOR DIALYSIS PATIENTS. Specimen Blood Performing Organization Address City/[facility]/Zipcode Phone Number [address] [address] [phone] CENTER HIV-1 Antigen with HIV-1/2 Antibody (09/25/2017 3:38 PM CDT) HIV-1 Antigen with HIV 1&2 NON-REACTIVE Nonreactive [facility] Antibody [facility] Specimen Blood - Arm, Right Narrative Performed At Can draw at the time of the next set of labs [facility] Performing Organization Address City/[facility]/Zipcode Phone Number [address] [address] C[place] Blood gas, venous (09/23/2017 7:24 AM CDT) pH, Yousif 7.43 (H) 7.32 - 7.42 [facility] pCO2, Yousif 39 (L) 41 - 51 mmHg [facility] pO2, Yousif 119 (H) 25 - 40 mmHg [facility] O2 Sat, Yousif 98.4 (H) 40.0 - 70.0 % [facility] HCO3, Yousif 26 21 - 29 mmol/L [facility] Base Excess, Yousif 1.4 -2.0 - 3.0 mmol/L [facility] Patient Temperature 37.1 C [facility] FIO2 21.0 % [facility] Specimen Blood - Arm, Left Performing Organization Address City/State/Zipcode Phone Number [address] [address] C[place] RPR (09/23/2017 4:49 AM CDT) RPR Nonreactive Nonreactive [facility] Specimen Blood Performing Organization Address City/[facility]/Zipcode Phone Number [address] [address] [phone] CENTER Vitamin B12 and Folate (09/23/2017 4:48 AM CDT)Only the most recent of2 resultswithin the time period is included. Vitamin B12 560 213 - 816 pg/mL [facility] Folate 6.5 (L) >=7.0 ng/mL [facility] Specimen Blood - Arm, Left Performing Organization Address City/State/Zipcode Phone Number [address] [address] [phone] CENTER TSH/Free T4 If Indicated (09/23/2017 4:48 AM CDT) TSH 0.42 0.35 - 4.94 uIU/mL [facility] Specimen Blood - Arm, Left Performing Organization Address City/State/Zipcode Phone Number [facility] [address] [place] [address] [phone] CENTER JOSHUA's Only(Ankle/Brachial Index) (09/22/2017 4:07 PM CDT) [facility] ECHO HEARTLAB MKCKESSON CPACS Impressions Performed At Right Impression [facility] ECHO HEARTLAB MKCKESSON CPACS 1. The posterior tibial and dorsalis pedis [...] ; Diameters are measured in cm Narrative Performed At PV LAB - Lower Extremity Arterial Procedure [facility] ECHO HEARTLAB MK[facility]ON [facility] Demographics Patient Name Camilo WHITE of Study 09/22/2017 CAT [id number] Age 72 Visit Number [id number] GenderFemale Accession Number [id number] Date of 1945 [facility] ([place], [place])[facility] Number [address] [facility] [place] MosesographOdette Stratton. Dereck Epstein MD, RVT Physician RPVI Procedure Type [...] Lower Extremity Arterial Procedure Demographics Patient Name JESES WHITE Date of Study 09/22/2017 CAT Age 72 Visit Number [id number] Gender Female Accession Number [id number] Date of 1945 Referring Dominguez Oconnor Room Number 934 Physician Angela Cold Rolling Machine Setter Betty Mackay Interpreting Radhika Epstein MD, RVT [...] Doppler waveforms were monophasic bilaterally. The right JOHSUA's were in the normal(PT) and non compressible(DP) [...] cm/s ; Diameters are measured in cm Performing Organization Address City/State/Zipcode Phone Number [facility] ECHO HEART[facility] REPORT OF PROCEDURE - ENDOSCOPY URL (09/21/2017 2:19 PM CDT) Narrative Performed At Tissue Exam (09/21/2017 2:00 PM CDT)Only the most recent of2 resultswithin the time period is included. Case Report Surgical Pathology Report Case: [id number] [facility] Authorizing Provider:Bong Hatch MDCollected: 09/21/2017 1400 [facility] Ordering Location: [address] Received: 09/22/2017 0752 Service Pathologist: Howard Reese MD Specimen:Biopsy, Gastric, antrum and body DIAGNOSIS A. STOMACH, ANTRUM AND BODY, BIOPSIES: [facility] - FOCALLY ACTIVE CHRONIC GASTRITIS AND REACTIVE [facility] - NEGATIVE FOR HELICOBACTER PYLORI ORGANISMS BY WARTHIN STARRY STAIN - NEGATIVE FOR INTESTINAL METAPLASIA, DYSPLASIA, MALIGNANCY Signing Pathologist Direct Phone Line: [phone] CPT Code(s) 26102 [facility] [address] [facility]ICAL [facility]ENTER CLINICAL HISTORY GI bleed [facility] SPECIMEN SOURCE Gastric antrum and body [facility] biopsy [facility] GROSS DESCRIPTION Received in formalin [facility] labeled "biopsy, gastric", [facility] description "antrum and body" are four fragments measuring 1.2 x 0.6 x 0.1 cm in aggregate. The specimen is entirely submitted in A1. DB/ew MICROSCOPIC DESCRIPTION Performed. [facility] Specimen Tissue - Biopsy, Gastric Performing Organization Address City/State/Zipcode Phone Number [facility] MEDICAL [address] [place] [address] [phone] brain without & with IV contrast (09/18/2017 3:10 PM CDT) Narrative Performed At FINAL REPORT [employer] [facility] CT Head with and without contrast CLINICAL [...] MD Report Verified Date/Time:09/18/2017 15:53:58 Reading Location: [facility] Radiology Reading Room Procedure Note Interface, External [...] Report Verified Date/Time: 09/18/2017 15:53:58 Reading Location: [facility] Radiology Reading Room Performing Organization Address City/State/Zipcode Phone Number [facility] CT abdomen/pelvis with IV contrast (09/18/2017 3:10 PM CDT) Narrative Performed At FINAL REPORT [facility] CT of the chest, abdomen and pelvis, [...] MD Report Verified Date/Time:09/18/2017 17:00:33 Reading Location: [facility] C013Y CT Body Reading Room Procedure Note [...] Report Verified Date/Time: 09/18/2017 17:00:33 Reading Location: [facility] C013Y CT Body Reading Room Performing Organization Address City/State/Zipcode Phone Number [facility] CT chest with IV contrast (09/18/2017 3:10 PM CDT) Narrative Performed At FINAL REPORT [facility] CT of the chest, abdomen and pelvis, [...] MD Report Verified Date/Time:09/18/2017 17:00:33 Reading Location: [facility] C013Y CT Body Reading Room Procedure Note [...] Report Verified Date/Time: 09/18/2017 17:00:33 Reading Location: [facility] C013Y CT Body Reading Room Performing Organization Address City/State/Zipcode Phone Number GE RIS Manual Differential (09/17/2017 5:10 AM CDT)Only the most recent of3 resultswithin the time period is included. % Neutros 78 % [facility] % Lymphs 9 % [facility] % Monos 8 % [facility] % Eos 3 % [facility] % Bands 1 0 - 10 % [facility] % Atypical Lymphs 1 (H) 0 - 0 % [facility] # Neutros 14.90 (H) 1.56 - 6.13 K/ul [facility] # Lymphs 1.72 1.18 - 3.74 K/ul [facility] # Monos 1.53 (H) 0.24 - 0.36 K/uL [facility] # Eos 0.57 (H) 0.04 - 0.36 K/uL [facility] # Bands 0.19 0.00 - 0.80 K/uL [facility] # Atypical Lymphs 0.19 (H) 0.00 - 0.00 K/uL [facility] Total Counted 100 [facility] nRBC (manual) 3 (H) 0 - 0 /100 WBC [facility] WBC Morphology Normal [facility] Platelet Morphology Normal [facility] Anisocytosis 1+ few [facility] Artifact Present [facility] Platelet Conc Increased [facility] Specimen Blood Narrative Performed At Received comment: [facility] User comments: Slide comments: Performing Organization Address City/[facility]/Zipcode Phone Number [facility] [address] [place], [place] [phone] [place] PTH, intact (09/15/2017 6:10 AM CDT)Only the most recent of2 resultswithin the time period is included. PTH 163.0 (H) 8.5 - 72.5 pg/mL [facility] Specimen Blood Performing Organization Address [facility] Phone Number [facility] [address] [place], [place] [phone] [place] MR lower extremity without IV contrast right side (09/14/2017 6:45 PM CDT) Narrative Performed At FINAL REPORT [facility] MR, EXTREMITY, LOWER, WITHOUT CONTRAST, RIGHT INDICATION: [...] MD Report Verified Date/Time:09/14/2017 21:45:20 Reading Location: [facility] Trans[facility] Reading [facility] Procedure Note Interface, External [...] Report Verified Date/Time: 09/14/2017 21:45:20 Reading Location: [facility] C013 Transitional Reading Room Performing Organization Address City/State/Zipcode Phone Number RIS Urinalysis w/Microscopic + Reflex to Culture (09/14/2017 4:00 AM CDT) Color, UA Yellow [facility] Clarity, UA Clear [facility] Specific [place], UA 1.009 1.001 - 1.035 [facility] pH, UA 7.5 5.0 - 8.0 [facility] Protein, UA 200 mg/dL (A) Negative [facility] Glucose, UA 500 mg/dL (A) Negative [facility] Ketones, UA Negative Negative [facility] Bilirubin, UA Negative Negative [facility] Blood, UA Negative Negative [facility] Nitrite, UA Negative Negative [facility] Leukocytes, UA Negative Negative [facility] Urobilinogen, UA 0.2 0.2 - 1.0 mg/dL [facility] RBC, UA <1 /HPF [facility] WBC, UA 3 /HPF [facility] Squam Epithel, UA <1 /HPF [facility] Specimen Source [facility] Specimen Urine Performing Organization Address City/[facility] Phone Number [address] [address] [phone] CENTER Body fluid culture + gram stain (09/13/2017 10:21 PM CDT)Only the most recent of2 resultswithin the time period is included. Result No growth [facility] Gram Stain Result No White blood cells seen [facility] Gram Stain Result No organisms seen [facility] Specimen Body Fluid - Peritoneal Dialysis Fluid Performing Organization Address [facility] Phone Number [address] [address] [phone] CENTER POC-Lactic Acid, Arterial (09/13/2017 6:05 PM CDT) POC-Lactic Acid, 1.7 (H)Comment: 0.4 - 1.3 mmol/L [facility] Arterial TESTED AT [address] [address] Specimen Blood Performing Organization Address [facility]/Zipcode Phone Number [address] [address] CENTER C-Reactive Protein (09/11/2017 5:19 AM CDT) CRP 15.69 (H) 0.00 - 0.50 mg/dL [facility] Specimen Blood Performing Organization Address City/[facility]/Zipcode Phone Number [facility] [address] [place] [address] [phone] [place] AF[employer] culture + smear (09/09/2017 7:31 PM CDT) Result Same organism has been isolated [facility] from cultures(s) of the same body [facility] site and collection date. Repeat identification and susceptibility testing performed only after consultation with the clinical microbiology laboratory. (A) AFB Smear No acid fast bacilli seen [facility] Specimen Tissue - Skin Performing Organization Address City/[facility] Phone Number [facility] [address] [place] [address] [place] Surgically obtained culture + gram stain (09/09/2017 7:31 PM CDT) Result NOCARDIA TRANSVALENSIS [facility] CENTER ()Comment: * - [facility] species, most closely related to N.elegans Gram Stain Result No WBCs [facility] Gram Stain Result No organisms seen [facility] Specimen Tissue - Skin Narrative Performed At By partial 16S gene sequencing, the best [facility] match to this isolate is only a [...] Susceptible Nocardia species Trimethoprim + MANUAL METHOD /19 mcg/mL: Susceptible Sulfamethoxazole Comment: Testing performed by: [facility] Dept. of Microbiology Research [facility] [address] [place] [address] Amoxicillin-clavulanic acid IS RESISTANT AT >64/32 MICROGRAM PER ML. Performing Organization Address City/State/Zipcode Phone Number [facility] [address] [place] [address] [place] Fungus culture + smear (09/09/2017 7:31 PM CDT) Result No fungus isolated in 28 days [facility] Fungus Smear No fungi seen [facility] Specimen Tissue - Skin Performing Organization Address City/[facility]/Zipcode Phone Number [facility] [address] [place] [address] [phone] [place] XR foot 3 views left (09/09/2017 3:56 PM CDT) Narrative Performed At FINAL REPORT [facility] Three views left foot. Bones are diffusely [...] MD Report Verified Date/Time:09/09/2017 16:31:47 Reading Location: [facility] B1 C013W Consult Reading Room Procedure Note Interface, External [...] Report Verified Date/Time: 09/09/2017 16:31:47 Reading Location: [address] Consult Reading Room Performing Organization Address [facility] Phone Number [facility] XR leg / tibia and fibula 2 views right (09/09/2017 3:56 PM CDT) Narrative Performed At FINAL REPORT [facility] Three views left foot. Bones are diffusely [...] MD Report Verified Date/Time:09/09/2017 16:31:47 Reading Location: [facility] C013 Consult Reading Room Procedure Note Interface, [...] Report Verified Date/Time: 09/09/2017 16:31:47 Reading Location: [facility] C013 Consult Reading Room Performing Organization Address [facility] Phone Number [facility] XR femur 2 views right (09/09/2017 3:56 PM CDT) Narrative Performed At FINAL REPORT [facility] Three views left foot. Bones are diffusely [...] MD Report Verified Date/Time:09/09/2017 16:31:47 Reading Location: [facility] C013 Consult Reading Room Procedure Note Interface, [...] Report Verified Date/Time: 09/09/2017 16:31:47 Reading Location: [facility] B1 C013W Consult Reading Room Performing Organization Address City/[facility] Services[facility] Phone Number [facility] Iron, TIBC, % sat. (without ferritin) (09/09/2017 4:02 AM CDT) Iron 41 40 - 160 ug/dL [facility] TIBC 134 (L) 250 - 450 ug/dL [facility] Iron % Saturation 31 20 - 55 % [facility] Specimen Blood Performing Organization Address City/[facility]/Zipcode Phone Number [address] [address] [place] Reticulocyte count (09/09/2017 4:02 AM CDT) % Retic 2.3 (H) 0.5 - 1.7 % [facility] Specimen Blood Performing Organization Address City/State/Zipcode Phone Number [facility] [address] [place] [address] [place] Ferritin (09/09/2017 4:02 AM CDT) Ferritin 742 (H) 5 - 275 ng/mL [facility] Specimen Blood Performing Organization Address City/State/Zipcode Phone Number [place] [phone] [place] [address] [place] ECHOCARDIOGRAM REPORT - SCAN (09/08/2017 5:50 PM CDT) Narrative Performed At 2D Echo W/Doppler(CW/PW/Color) (09/08/2017 2:41 PM CDT) Ejection Fraction [facility] Narrative Performed At Transthoracic Echocardiography Report (TTE) [facility] Demographics Patient Name Camilo WHITE of Study09/08/2017 CAT [id number] Gender Female Visit Number [id number] Race [id number] [facility] [id number] Number Date of Birth1945 Referring PhysicianJordana Song Age72 year(s) SonLynnette Claros SISSY Tolentino RDCS Interpreting Oly Gaspar MD Physician [...] (female - LVED vol - 29-61ml/m2). Mild LV H noted. All of the LV segments contract normally . Global LV systolic function normal . Estimated LV EF by qualitative assessment is normal (>60%) . Gr viv 2 diastolic dysfunction. Left AtriumLA size is mildly enlarged (35-41 ml/m2) . Right VentricleThe right ventricular chamber size and systolic fu nction are within normal limits. Right Atrium RA cavity size is normal . Aortic Valve Normal AoV structure and function. No evidence of aortic stenosis. No evidence of aortic regurgitation. Mitral Valve Mild MV leaflet thickening. Tr peter mitral regurgitation. Tricuspid ValveTV structure is normal. A trace of tricuspid regurgitation. Pe ak systolic pressure may be underestimated; pa rtial TR signal. Estimated peak systolic pressure is at least 25-30 mmHg. Pulmonic Valve Normal PV structure and function by limited views an d Doppler. AortaAortic root size (SInus of Valsalva diameter) is no rmal . PericardiumNo pericardial effusion is visualized. IVC/SVC/PA/PV/PleuralThe estimated RA pressure by IVC dynamics 0-5mmHg . Th e inferior vena cava size is normal . Th e inferior vena cava is adequately visualized. Chambers/Structures Left Atrium LA Volume: 63.34 ml LA Area: 20.87 cm^2 LA Vol. Index: 37 ml/m^2 Left Ventricle LVIDd: 4.12 cm LVEDV:75.11 ml LV Septum Diastolic: 1.3 cm LV PW Diastolic: 1.3 cm LVEDV Man's:65.35 ml LVED : 38 ml/m^2 LVOT Diameter: 1.8 cm Right Ventricle RV Systolic Pressure: 27.47 mmHg Aorta Ao Root S of Sandra.: 2.62 cm Doppler/Quantitative Measurements Mitral Valve MV Peak E-Wave: 0.92 m/sMV Peak A-Wave: 1.15 m/s E/A Ratio: 0.8 [...] Study 09/08/2017 CAT Gender Female Visit Number [id number] Race Room Number 934 Number Date of 1945 Referring Physician Jordana Song Age 72 year(s) Cold Rolling Machine Setter Joseph Claros [facility] Cosmetic Sales Consultant Bridgett Tolentino [facility] Interpreting Oly Gaspar MD Physician Procedure Type [...] mmHg Pulmonic Valve Estimated PASP: 27.47 mmHg Performing Organization Address City/State/Zipcode Phone Number [facility] Hemoglobin A1c (09/08/2017 4:31 AM CDT) Hemoglobin A1C 9.3 (H) 4.3 - 6.1 % [facility] Specimen Blood - Arm, Right Performing Organization Address City/State/Zipcode Phone Number [place] [phone] [place] [address] CENTER after 03/15/2017 Insurance Payer Benefit Plan / Group Subscriber ID Type Phone Address MEDICARE MEDICARE A B xxxxxxxxxx Medicare MEDICAID MEDICAID [facility] xxxxxxxxx Medicaid ([place]) [place] [address] Advance Directives For more information, please contact:[address] [phone] Code Status Date Activated Date Inactivated Comments Full Code 09/08/2017 12:37 AM 10/07/2017 2:46 PM This code status was determined by: Patient
--- OUTSIDE RECORDS SUMMARY | 2018-03-16 12:50 | XMS REPORT ---
:1945 [facility] [address] [place] [address] Care Team Providers Name Role Phone SARAI AYOUB Unavailable Unavailable Payers Payer Name Policy Type Policy Number Effective Date Expiration Date Problems This patient has no known problems. Allergies, Adverse Reactions, Alerts Allergy Allergy Status Severity Reaction(s) Onset Inactive Treating Comments Name Type Date Date Clinician No Known DA Active U 2017-12 Allergies -06 00:00:0 0 Medications This patient has no known medications. Results Test Description Test Time Test Comments Text Results Atomic Results Result Comments AFB CULTURE + SMEAR 2017-10-25 19:42:00 Test Item Value Reference Range Comments CULTURE (BEAKER) (test Same organism has been isolated zpik=6680) from cultures(s) of the same body site and collection date. Repeat identification and susceptibility testing performed only after consultation with the clinical microbiology laboratory. 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 Amikacin (test code=1) mcg/mL Amoxicillin + Clavulanate (test code=21) Ceftriaxone (test code=52) mcg/mL Ciprofloxacin (test code=7) mcg/mL Clarithromycin (test code=42) mcg/mL Doxycycline (test code=15) mcg/mL Linezolid (test code=40) mcg/mL Minocycline (test code=35) mcg/mL Moxifloxacin (test code=36) mcg/mL Tobramycin (test code=25) mcg/mL Trimethoprim + mcg/mL Sulfamethoxazole (test code=47) GRAM STAIN RESULT (BEAKER) No WBCs (test qpkq=7544) GRAM STAIN RESULT (BEAKER) No organisms seen (test jrvy=814706) By partial 16S gene sequencing, the best match to this isolate is only a 99.2% 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 This isolate could represent a novel or previously undescribed species within the Nocardiagenus.FUNGUS CULTURE + [id number] 12:57:00 Test Item Value Reference Range Comments CULTURE (BEAKER) (test No fungus isolated in 28 days zgfm=2871) FUNGUS SMEAR (BEAKER) (test No fungi seen tbmi=2130) BLOOD [id number] 11:00:00 Test Item Value Reference Range Comments CULTURE (BEAKER) (test gggg=6385) No growth in 5 days BLOOD [id number] 11:00:00 Test Item Value Reference Range Comments CULTURE (BEAKER) (test fhmy=5754) No growth in 5 days POCT-GLUCOSE [id number] 07:58:00 Test Item Value Reference Range Comments POC-GLUCOSE METER (BEAKER) 141 mg/dL 70-110 TESTED AT [address] (test xbiq=4099) [facility] [address] BASIC METABOLIC [id number] 07:56:00 Test Item Value Reference Range Comments SODIUM (BEAKER) (test 133 meq/L 136-145 ilzn=333) POTASSIUM (BEAKER) (test 3.2 meq/L 3.5-5.1 moad=997) CHLORIDE (BEAKER) (test 95 meq/L 98-107 cmbq=876) CO2 (BEAKER) (test 29 meq/L 22-29 nkww=920) BLOOD UREA NITROGEN 38 mg/dL 7-21 (BEAKER) (test idko=359) CREATININE (BEAKER) (test 6.46 mg/dL 0.57-1.25 uebu=520) GLUCOSE RANDOM (BEAKER) 125 mg/dL 70-105 (test dsef=473) CALCIUM (BEAKER) (test 9.4 mg/dL 8.4-10.2 brhv=394) EGFR (BEAKER) (test 6 mL/min/1.73 sq m ESTIMATED GFR IS NOT jmsu=1675) ACCURATE CREATININE CLEARANCE IN PREDICTING GLOMERULAR FILTRATION RATE. ESTIMATED GFR IS NOT APPLICABLE FOR DIALYSIS PATIENTS. [id number] 07:39:00 Test Item Value Reference Range Comments PHOSPHORUS (BEAKER) (test rtbu=103) 3.5 mg/dL 2.3-4.7 [id number] 07:39:00 Test Item Value Reference Range Comments MAGNESIUM (BEAKER) (test ahej=392) 2.0 mg/dL 1.6-2.6 CBC W/PLT COUNT & AUTO [id number] 07:29:00 Test Item Value Reference Range Comments WHITE BLOOD CELL COUNT (BEAKER) (test qyku=394) 8.6 K/ L 3.5-10.5 RED BLOOD CELL COUNT (BEAKER) (test bkgd=311) 2.68 M/ L 3.93-5.22 HEMOGLOBIN (BEAKER) (test yiyt=164) 7.8 GM/DL 11.2-15.7 HEMATOCRIT (BEAKER) (test pvar=149) 25.7 % 34.1-44.9 MEAN CORPUSCULAR VOLUME (BEAKER) (test vnri=616) 95.9 fL 79.4-94.8 MEAN CORPUSCULAR HEMOGLOBIN (BEAKER) (test 29.1 pg 25.6-32.2 euix=416) MEAN CORPUSCULAR HEMOGLOBIN CONC (BEAKER) (test 30.4 GM/DL 32.2-35.5 yyqb=294) RED CELL DISTRIBUTION WIDTH (BEAKER) (test 14.4 % 11.7-14.4 eycr=356) PLATELET COUNT (BEAKER) (test olyo=507) 294 K/CU MM 150-450 MEAN PLATELET VOLUME (BEAKER) (test bjvn=701) 9.8 fL 9.4-12.3 NUCLEATED RED BLOOD CELLS (BEAKER) (test 2 /100 WBC 0-0 lnot=595) NEUTROPHILS RELATIVE PERCENT (BEAKER) (test 63 % hpvv=460) LYMPHOCYTES RELATIVE PERCENT (BEAKER) (test 21 % jche=240) MONOCYTES RELATIVE PERCENT (BEAKER) (test 11 % vefk=426) EOSINOPHILS RELATIVE PERCENT (BEAKER) (test 4 % jlol=611) BASOPHILS RELATIVE PERCENT (BEAKER) (test 1 % rknu=182) NEUTROPHILS ABSOLUTE COUNT (BEAKER) (test 5.39 K/ L 1.56-6.13 oson=775) LYMPHOCYTES ABSOLUTE COUNT (BEAKER) (test 1.78 K/ L 1.18-3.74 epvh=582) MONOCYTES ABSOLUTE COUNT (BEAKER) (test 0.92 K/ L 0.24-0.36 xnkj=066) EOSINOPHILS ABSOLUTE COUNT (BEAKER) (test 0.32 K/ L 0.04-0.36 pdzn=178) BASOPHILS ABSOLUTE COUNT (BEAKER) (test 0.06 K/ L 0.01-0.08 lfxk=336) IMMATURE GRANULOCYTES-RELATIVE PERCENT (BEAKER) 1 % 0-1 (test eylb=4828) POCT-GLUCOSE [id number] 21:53:00 Test Item Value Reference Range Comments POC-GLUCOSE METER (BEAKER) 232 mg/dL 70-110 TESTED AT [address] (test wtya=1142) [place] [address] POCT-GLUCOSE [id number] 17:23:00 Test Item Value Reference Range Comments POC-GLUCOSE METER (BEAKER) 154 mg/dL 70-110 TESTED AT [address] (test ybzj=1250) [place] [address] POCT-GLUCOSE [id number] 12:34:00 Test Item Value Reference Range Comments POC-GLUCOSE METER (BEAKER) 170 mg/dL 70-110 TESTED AT [address] (test ifcp=9322) [place] [id number] BASIC METABOLIC [id number] 10:57:00 Test Item Value Reference Range Comments SODIUM (BEAKER) (test 131 meq/L 136-145 gzuc=047) POTASSIUM (BEAKER) (test 3.4 meq/L 3.5-5.1 gacj=829) CHLORIDE (BEAKER) (test 96 meq/L 98-107 brjo=384) CO2 (BEAKER) (test 25 meq/L 22-29 swjf=080) BLOOD UREA NITROGEN 38 mg/dL 7-21 (BEAKER) (test amam=703) CREATININE (BEAKER) (test 6.86 mg/dL 0.57-1.25 nknw=650) GLUCOSE RANDOM (BEAKER) 134 mg/dL 70-105 (test rdot=549) CALCIUM (BEAKER) (test 8.8 mg/dL 8.4-10.2 uiue=003) EGFR (BEAKER) (test 6 mL/min/1.73 sq m ESTIMATED GFR IS NOT eeir=7142) ACCURATE CREATININE CLEARANCE IN PREDICTING GLOMERULAR FILTRATION RATE. ESTIMATED GFR IS NOT APPLICABLE FOR DIALYSIS PATIENTS. [id number] 10:53:00 Test Item Value Reference Range Comments PHOSPHORUS (BEAKER) (test pekc=372) 3.7 mg/dL 2.3-4.7 [id number] 10:53:00 Test Item Value Reference Range Comments MAGNESIUM (BEAKER) (test nzzb=809) 2.1 mg/dL 1.6-2.6 POCT-GLUCOSE [id number] 07:59:00 Test Item Value Reference Range Comments POC-GLUCOSE METER (BEAKER) 142 mg/dL 70-110 [facility] [address] [facility] (test voml=0002) [facility] [address] CBC W/PLT COUNT & AUTO [id number] 05:56:00 Test Item Value Reference Range Comments WHITE BLOOD CELL COUNT (BEAKER) (test otfg=189) 8.4 K/ L 3.5-10.5 RED BLOOD CELL COUNT (BEAKER) (test kchc=908) 2.67 M/ L 3.93-5.22 HEMOGLOBIN (BEAKER) (test svyq=058) 7.9 GM/DL 11.2-15.7 HEMATOCRIT (BEAKER) (test pjwb=498) 26.2 % 34.1-44.9 MEAN CORPUSCULAR VOLUME (BEAKER) (test izzj=045) 98.1 fL 79.4-94.8 MEAN CORPUSCULAR HEMOGLOBIN (BEAKER) (test 29.6 pg 25.6-32.2 psel=158) MEAN CORPUSCULAR HEMOGLOBIN CONC (BEAKER) (test 30.2 GM/DL 32.2-35.5 jkqk=126) RED CELL DISTRIBUTION WIDTH (BEAKER) (test 14.6 % 11.7-14.4 lygo=953) PLATELET COUNT (BEAKER) (test bovv=511) 294 K/CU MM 150-450 MEAN PLATELET VOLUME (BEAKER) (test ppbp=771) 10.4 fL 9.4-12.3 NUCLEATED RED BLOOD CELLS (BEAKER) (test 2 /100 WBC 0-0 bqhj=141) NEUTROPHILS RELATIVE PERCENT (BEAKER) (test 66 % tely=814) LYMPHOCYTES RELATIVE PERCENT (BEAKER) (test 19 % uolw=707) MONOCYTES RELATIVE PERCENT (BEAKER) (test 9 % mmcs=550) EOSINOPHILS RELATIVE PERCENT (BEAKER) (test 4 % wgmo=942) BASOPHILS RELATIVE PERCENT (BEAKER) (test 1 % tnlg=553) NEUTROPHILS ABSOLUTE COUNT (BEAKER) (test 5.57 K/ L 1.56-6.13 rngo=855) LYMPHOCYTES ABSOLUTE COUNT (BEAKER) (test 1.61 K/ L 1.18-3.74 hrlu=434) MONOCYTES ABSOLUTE COUNT (BEAKER) (test 0.73 K/ L 0.24-0.36 zqrb=575) EOSINOPHILS ABSOLUTE COUNT (BEAKER) (test 0.37 K/ L 0.04-0.36 jjhx=480) BASOPHILS ABSOLUTE COUNT (BEAKER) (test 0.06 K/ L 0.01-0.08 mdqn=765) IMMATURE GRANULOCYTES-RELATIVE PERCENT (BEAKER) 1 % 0-1 (test lgpw=4096) POCT-GLUCOSE [id number] 21:31:00 Test Item Value Reference Range Comments POC-GLUCOSE METER (BEAKER) 182 mg/dL 70-110 TESTED AT [place] [id number] [facility] (test jbju=6073) [facility] [address] POCT-GLUCOSE [id number] 17:05:00 Test Item Value Reference Range Comments POC-GLUCOSE METER (BEAKER) 243 mg/dL 70-110 TESTED AT [address] (test fozf=0795) [place] [id number] EEG AWAKE AND [id number] 15:43:00Reason for exam:->AMSDate(s) of EEDATE OF REPORT: 10/05/2017ACC: [id number] Number: [id number] time: 15: 28Stop time: 15:50ICD-10: R41.82CPT Code: 97915 HISTORY: 72 y/o with PMHx of ESRD [...] unclear. Clinical correlation is recommended. Bozena Lawrence [facility] POCT-GLUCOSE [id number] 11:57 :00 Test Item Value Reference Range Comments POC-GLUCOSE METER (BEAKER) 172 mg/dL 70-110 TESTED AT [address] (test kkpw=2247) [place] [address] POCT-GLUCOSE [id number] 08:00:00 Test Item Value Reference Range Comments POC-GLUCOSE METER (BEAKER) 195 mg/dL 70-110 TESTED AT [address] (test dgsg=3349) [place] [address] BASIC METABOLIC [id number] 07:14:00 Test Item Value Reference Range Comments SODIUM (BEAKER) (test 130 meq/L 136-145 edte=336) POTASSIUM (BEAKER) (test 3.4 meq/L 3.5-5.1 ktrt=912) CHLORIDE (BEAKER) (test 94 meq/L 98-107 lsys=633) CO2 (BEAKER) (test 26 meq/L 22-29 rqhc=979) BLOOD UREA NITROGEN 37 mg/dL 7-21 (BEAKER) (test bdru=843) CREATININE (BEAKER) (test 6.87 mg/dL 0.57-1.25 tmem=861) GLUCOSE RANDOM (BEAKER) 145 mg/dL 70-105 (test chib=727) CALCIUM (BEAKER) (test 9.2 mg/dL 8.4-10.2 psse=037) EGFR (BEAKER) (test 6 mL/min/1.73 sq m ESTIMATED GFR IS NOT ctll=2740) ACCURATE CREATININE CLEARANCE IN PREDICTING GLOMERULAR FILTRATION RATE. ESTIMATED GFR IS NOT APPLICABLE FOR DIALYSIS PATIENTS. [id number] 07:03:00 Test Item Value Reference Range Comments PHOSPHORUS (BEAKER) (test ybus=253) 3.2 mg/dL 2.3-4.7 [id number] 07:03:00 Test Item Value Reference Range Comments MAGNESIUM (BEAKER) (test wgci=689) 2.0 mg/dL 1.6-2.6 CBC W/PLT COUNT & AUTO [id number] 06:24:00 Test Item Value Reference Range Comments WHITE BLOOD CELL COUNT (BEAKER) (test onsz=011) 9.3 K/ L 3.5-10.5 RED BLOOD CELL COUNT (BEAKER) (test wdic=896) 2.76 M/ L 3.93-5.22 HEMOGLOBIN (BEAKER) (test xtnq=739) 8.0 GM/DL 11.2-15.7 HEMATOCRIT (BEAKER) (test zame=742) 26.6 % 34.1-44.9 MEAN CORPUSCULAR VOLUME (BEAKER) (test gjjc=553) 96.4 fL 79.4-94.8 MEAN CORPUSCULAR HEMOGLOBIN (BEAKER) (test 29.0 pg 25.6-32.2 qqgj=821) MEAN CORPUSCULAR HEMOGLOBIN CONC (BEAKER) (test 30.1 GM/DL 32.2-35.5 waia=519) RED CELL DISTRIBUTION WIDTH (BEAKER) (test 14.0 % 11.7-14.4 egqt=704) PLATELET COUNT (BEAKER) (test aufn=259) 294 K/CU MM 150-450 MEAN PLATELET VOLUME (BEAKER) (test zibs=486) 10.0 fL 9.4-12.3 NUCLEATED RED BLOOD CELLS (BEAKER) (test 2 /100 WBC 0-0 tzpf=503) NEUTROPHILS RELATIVE PERCENT (BEAKER) (test 70 % zmda=980) LYMPHOCYTES RELATIVE PERCENT (BEAKER) (test 17 % qtfm=931) MONOCYTES RELATIVE PERCENT (BEAKER) (test 8 % qdqj=927) EOSINOPHILS RELATIVE PERCENT (BEAKER) (test 4 % jhab=911) BASOPHILS RELATIVE PERCENT (BEAKER) (test 1 % ahxd=860) NEUTROPHILS ABSOLUTE COUNT (BEAKER) (test 6.48 K/ L 1.56-6.13 qaeh=002) LYMPHOCYTES ABSOLUTE COUNT (BEAKER) (test 1.54 K/ L 1.18-3.74 ainu=803) MONOCYTES ABSOLUTE COUNT (BEAKER) (test 0.70 K/ L 0.24-0.36 qsog=831) EOSINOPHILS ABSOLUTE COUNT (BEAKER) (test 0.36 K/ L 0.04-0.36 lkxe=732) BASOPHILS ABSOLUTE COUNT (BEAKER) (test 0.05 K/ L 0.01-0.08 hxyj=306) IMMATURE GRANULOCYTES-RELATIVE PERCENT (BEAKER) 1 % 0-1 (test tbgj=2529) POCT-GLUCOSE [id number] 20:34:00 Test Item Value Reference Range Comments POC-GLUCOSE METER (BEAKER) 207 mg/dL 70-110 TESTED AT [address] (test wufs=3161) [place] [address] POCT-GLUCOSE [id number] 16:41:00 Test Item Value Reference Range Comments POC-GLUCOSE METER (BEAKER) 137 mg/dL 70-110 TESTED AT [address] (test lscd=4455) [place] [address] PERITONEAL DIALYSIS EFFLUENT [id number] 15:06:00 Test Item Value Reference Range Comments CULTURE (BEAKER) (test xutv=1999) No growth POCT-GLUCOSE [id number] 11:46:00 Test Item Value Reference Range Comments POC-GLUCOSE METER (BEAKER) 151 mg/dL 70-110 TESTED AT [address] (test fmjs=8557) [place] [address] BASIC METABOLIC [id number] 11:23:00 Test Item Value Reference Range Comments SODIUM (BEAKER) (test 133 meq/L 136-145 ezgt=826) POTASSIUM (BEAKER) (test 3.7 meq/L 3.5-5.1 emgu=487) CHLORIDE (BEAKER) (test 93 meq/L 98-107 fclg=428) CO2 (BEAKER) (test 25 meq/L 22-29 eksr=560) BLOOD UREA NITROGEN 37 mg/dL 7-21 (BEAKER) (test tvtw=195) CREATININE (BEAKER) (test 7.08 mg/dL 0.57-1.25 fzzs=769) GLUCOSE RANDOM (BEAKER) 134 mg/dL 70-105 (test eqoq=104) CALCIUM (BEAKER) (test 9.1 mg/dL 8.4-10.2 tsls=185) EGFR (BEAKER) (test 6 mL/min/1.73 sq m ESTIMATED GFR IS NOT ufvd=8467) ACCURATE CREATININE CLEARANCE IN PREDICTING GLOMERULAR FILTRATION RATE. ESTIMATED GFR IS NOT APPLICABLE FOR DIALYSIS PATIENTS. [id number] 11:17:00 Test Item Value Reference Range Comments PHOSPHORUS (BEAKER) (test ghpf=635) 3.4 mg/dL 2.3-4.7 [id number] 11:17:00 Test Item Value Reference Range Comments MAGNESIUM (BEAKER) (test tovx=838) 2.1 mg/dL 1.6-2.6 POCT-GLUCOSE [id number] 11:16:00 Test Item Value Reference Range Comments POC-GLUCOSE METER (BEAKER) 150 mg/dL 70-110 TESTED AT [facility] [address] [place] [address] (test sqif=3302) [facility] [address] CBC W/PLT COUNT & AUTO [id number] 05:58:00 Test Item Value Reference Range Comments WHITE BLOOD CELL COUNT (BEAKER) (test puow=396) 10.6 K/ L 3.5-10.5 RED BLOOD CELL COUNT (BEAKER) (test fcpe=226) 2.74 M/ L 3.93-5.22 HEMOGLOBIN (BEAKER) (test dfdk=328) 8.3 GM/DL 11.2-15.7 HEMATOCRIT (BEAKER) (test fgss=267) 28.1 % 34.1-44.9 MEAN CORPUSCULAR VOLUME (BEAKER) (test ufao=575) 102.6 fL 79.4-94.8 MEAN CORPUSCULAR HEMOGLOBIN (BEAKER) (test 30.3 pg 25.6-32.2 soxe=038) MEAN CORPUSCULAR HEMOGLOBIN CONC (BEAKER) (test 29.5 GM/DL 32.2-35.5 zszb=649) RED CELL DISTRIBUTION WIDTH (BEAKER) (test 13.8 % 11.7-14.4 bubr=780) PLATELET COUNT (BEAKER) (test cwbg=723) 286 K/CU MM 150-450 MEAN PLATELET VOLUME (BEAKER) (test mqqy=541) 9.9 fL 9.4-12.3 NUCLEATED RED BLOOD CELLS (BEAKER) (test 4 /100 WBC 0-0 dber=315) NEUTROPHILS RELATIVE PERCENT (BEAKER) (test 71 % vxzm=806) LYMPHOCYTES RELATIVE PERCENT (BEAKER) (test 15 % vtct=869) MONOCYTES RELATIVE PERCENT (BEAKER) (test 8 % twyh=918) EOSINOPHILS RELATIVE PERCENT (BEAKER) (test 4 % gnji=327) BASOPHILS RELATIVE PERCENT (BEAKER) (test 1 % clzk=743) NEUTROPHILS ABSOLUTE COUNT (BEAKER) (test 7.60 K/ L 1.56-6.13 dcoh=231) LYMPHOCYTES ABSOLUTE COUNT (BEAKER) (test 1.56 K/ L 1.18-3.74 zpvs=704) MONOCYTES ABSOLUTE COUNT (BEAKER) (test 0.86 K/ L 0.24-0.36 cyex=317) EOSINOPHILS ABSOLUTE COUNT (BEAKER) (test 0.41 K/ L 0.04-0.36 kbnp=122) BASOPHILS ABSOLUTE COUNT (BEAKER) (test 0.06 K/ L 0.01-0.08 qrgz=718) IMMATURE GRANULOCYTES-RELATIVE PERCENT (BEAKER) 1 % 0-1 (test lple=6285) POCT-GLUCOSE [id number] 20:42:00 Test Item Value Reference Range Comments POC-GLUCOSE METER (BEAKER) 173 mg/dL 70-110 TESTED AT [address] (test kmhs=7903) [facility] [address] POCT-GLUCOSE [id number] 18:39:00 Test Item Value Reference Range Comments POC-GLUCOSE METER (BEAKER) 206 mg/dL 70-110 TESTED AT [address] (test hkcs=8720) [facility] [address] POCT-GLUCOSE [id number] 12:36:00 Test Item Value Reference Range Comments POC-GLUCOSE METER (BEAKER) 148 mg/dL 70-110 TESTED AT [facility] [address] [facility] (test acvn=3269) [facility] [address] POCT-GLUCOSE [id number] 08:44:00 Test Item Value Reference Range Comments POC-GLUCOSE METER (BEAKER) 142 mg/dL 70-110 TESTED AT [facility] [address] [facility] (test duvl=0342) [facility] [address] BASIC METABOLIC [id number] 08:21:00 Test Item Value Reference Range Comments SODIUM (BEAKER) (test 133 meq/L 136-145 vwjh=265) POTASSIUM (BEAKER) (test 3.6 meq/L 3.5-5.1 fwlj=326) CHLORIDE (BEAKER) (test 95 meq/L 98-107 hxnd=728) CO2 (BEAKER) (test 26 meq/L 22-29 jyrt=745) BLOOD UREA NITROGEN 35 mg/dL 7-21 (BEAKER) (test wtxg=180) CREATININE (BEAKER) (test 6.98 mg/dL 0.57-1.25 qocg=365) GLUCOSE RANDOM (BEAKER) 123 mg/dL 70-105 (test fcbt=439) CALCIUM (BEAKER) (test 9.2 mg/dL 8.4-10.2 vsje=153) EGFR (BEAKER) (test 6 mL/min/1.73 sq m ESTIMATED GFR IS NOT ccwg=9849) ACCURATE CREATININE CLEARANCE IN PREDICTING GLOMERULAR FILTRATION RATE. ESTIMATED GFR IS NOT APPLICABLE FOR DIALYSIS PATIENTS. [id number] 08:02:00 Test Item Value Reference Range Comments PHOSPHORUS (BEAKER) (test ckhp=136) 3.1 mg/dL 2.3-4.7 [id number] 08:02:00 Test Item Value Reference Range Comments MAGNESIUM (BEAKER) (test rmpl=716) 1.9 mg/dL 1.6-2.6 CBC W/PLT COUNT & AUTO [id number] 07:06:00 Test Item Value Reference Range Comments WHITE BLOOD CELL COUNT (BEAKER) (test zqvl=555) 11.7 K/ L 3.5-10.5 RED BLOOD CELL COUNT (BEAKER) (test iauz=141) 2.94 M/ L 3.93-5.22 HEMOGLOBIN (BEAKER) (test duus=723) 8.8 GM/DL 11.2-15.7 HEMATOCRIT (BEAKER) (test sdrm=972) 29.5 % 34.1-44.9 MEAN CORPUSCULAR VOLUME (BEAKER) (test dwbn=977) 100.3 fL 79.4-94.8 MEAN CORPUSCULAR HEMOGLOBIN (BEAKER) (test 29.9 pg 25.6-32.2 kygw=731) MEAN CORPUSCULAR HEMOGLOBIN CONC (BEAKER) (test 29.8 GM/DL 32.2-35.5 udoj=009) RED CELL DISTRIBUTION WIDTH (BEAKER) (test 13.6 % 11.7-14.4 atno=460) PLATELET COUNT (BEAKER) (test gvqt=649) 283 K/CU MM 150-450 MEAN PLATELET VOLUME (BEAKER) (test lqcc=389) 11.0 fL 9.4-12.3 NUCLEATED RED BLOOD CELLS (BEAKER) (test 4 /100 WBC 0-0 dgqk=627) NEUTROPHILS RELATIVE PERCENT (BEAKER) (test 71 % ahke=383) LYMPHOCYTES RELATIVE PERCENT (BEAKER) (test 14 % soha=140) MONOCYTES RELATIVE PERCENT (BEAKER) (test 7 % neaz=311) EOSINOPHILS RELATIVE PERCENT (BEAKER) (test 6 % pnph=372) BASOPHILS RELATIVE PERCENT (BEAKER) (test 1 % ezms=126) NEUTROPHILS ABSOLUTE COUNT (BEAKER) (test 8.32 K/ L 1.56-6.13 uwji=444) LYMPHOCYTES ABSOLUTE COUNT (BEAKER) (test 1.63 K/ L 1.18-3.74 hidz=671) MONOCYTES ABSOLUTE COUNT (BEAKER) (test 0.86 K/ L 0.24-0.36 wapg=928) EOSINOPHILS ABSOLUTE COUNT (BEAKER) (test 0.64 K/ L 0.04-0.36 rxgn=214) BASOPHILS ABSOLUTE COUNT (BEAKER) (test 0.08 K/ L 0.01-0.08 tkur=617) IMMATURE GRANULOCYTES-RELATIVE PERCENT (BEAKER) 1 % 0-1 (test jvle=4474) POCT-GLUCOSE [id number] 23:17:00 Test Item Value Reference Range Comments POC-GLUCOSE METER (BEAKER) 355 mg/dL 70-110 TESTED AT [facility] [address] (test mobp=4418) [facility] [address] EEG AWAKE AND [id number] 17:52:00Reason for exam:->visual hallucinations of unknown etiologyDate(s) of EE10/02/2017DATE OF REPORT: 2017ACC: [id number] Number: [id number] time: 15:25Stop time: 15:47ICD-10: R41.82CPT Code: 03979 HISTORY: 72 yo with PMHx of ESRD [...] agree with the details of this report.Moises Gleasonaffinity [facility] partners NeurophysiologistCHI [facility] Electronically signed by: DARINEL ROBERT MD on 2017 05:52 PMPOCT-GLUCOSE [id number] 17:06:00 Test Item Value Reference Range Comments POC-GLUCOSE METER (BEAKER) 129 mg/dL 70-110 TESTED AT [address] (test aqdh=8632) [facility] [address] POCT-GLUCOSE [id number] 12:10:00 Test Item Value Reference Range Comments POC-GLUCOSE METER (BEAKER) 190 mg/dL 70-110 TESTED AT [address] (test fjbk=3927) [place] [id number] POCT-GLUCOSE [id number] 07:38:00 Test Item Value Reference Range Comments POC-GLUCOSE METER (BEAKER) 266 mg/dL 70-110 TESTED AT [facility] [address] (test oppm=7517) [facility] [address] LACTIC ACID, VENOUS, WHOLE [id number] 06:36:00 Test Item Value Reference Range Comments LACTATE BLOOD VENOUS (2) 2.6 mmol/L 0.5-2.2 Specimen slightly hemolyzed (BEAKER) (test asto=4289) Effective 07/04/2015: Units/Reference Range ChangeNew: 0.5-2.2 mmol/L Previous: 5 -20 mg/[id number] 06:12:00 Test Item Value Reference Range Comments PROCALCITONIN (BEAKER) (test uacx=0320) 0.67 ng/mL <0.05 SEPSIS RISK (ng/mL)Low: 0.05-0.50Intermediate: 0.51-2.00High: & gt;=2.01BASIC METABOLIC [id number] 05:31:00 Test Item Value Reference Range Comments SODIUM (BEAKER) (test 137 meq/L 136-145 cfss=297) POTASSIUM (BEAKER) (test 3.1 meq/L 3.5-5.1 mjuf=793) CHLORIDE (BEAKER) (test 98 meq/L 98-107 vzut=237) CO2 (BEAKER) (test 25 meq/L 22-29 uabb=173) BLOOD UREA NITROGEN 39 mg/dL 7-21 (BEAKER) (test lynj=992) CREATININE (BEAKER) (test 7.67 mg/dL 0.57-1.25 ssxj=257) GLUCOSE RANDOM (BEAKER) 248 mg/dL 70-105 (test tldp=733) CALCIUM (BEAKER) (test 9.7 mg/dL 8.4-10.2 sxjp=539) EGFR (BEAKER) (test 5 mL/min/1.73 sq m ESTIMATED GFR IS NOT nstl=0439) ACCURATE CREATININE CLEARANCE IN PREDICTING GLOMERULAR FILTRATION RATE. ESTIMATED GFR IS NOT APPLICABLE FOR DIALYSIS PATIENTS. [id number] 05:30:00 Test Item Value Reference Range Comments PHOSPHORUS (BEAKER) (test xtkd=350) 3.8 mg/dL 2.3-4.7 [id number] 05:30:00 Test Item Value Reference Range Comments MAGNESIUM (BEAKER) (test amue=319) 2.1 mg/dL 1.6-2.6 POCT-BLOOD GASES, [id number] 05:24:00 Test Item Value Reference Range Comments TEMP, CELSIUS-POC (BEAKER) 36.1 (test pzns=1170) FIO2-POC (BEAKER) (test 21 TESTED AT [place] [address] [address] prhg=0566) [place] [address] PH, ARTERIAL-POC (BEAKER) 7.480 7.350-7.450 (test iiso=7842) PCO2, ARTERIAL-POC (BEAKER) 36.6 mm Hg 35.0-45.0 (test mvii=4046) PO2, ARTERIAL-POC (BEAKER) 56.0 mm Hg 80.0-90.0 (test lnem=8490) SO2, ARTERIAL-POC (BEAKER) 92.0 % 96.0-97.0 (test etag=9810) HCO3, ARTERIAL-POC (BEAKER) 27.5 meq/L 21.0-29.0 (test obzf=0534) BASE EXCESS, ARTERIAL-POC 4.0 meq/L -2.0-3.0 (BEAKER) (test uxxd=4463) [id number] 05:24:00 Test Item Value Reference Range Comments POC-SODIUM (BEAKER) (test 137 meq/L 135-148 TESTED AT [place] [address] [address] reqt=9750) [place] [address] [id number] 05:24:00 Test Item Value Reference Range Comments POC-POTASSIUM (BEAKER) (test 2.8 meq/L 3.6-5.5 TESTED AT [place] [address] [address] ukag=5889) [place] [address] [id number] 05:24:00 Test Item Value Reference Range Comments POC-GLUCOSE (BEAKER) (test 254 mg/dL 70-110 TESTED AT [place] [address] [address] lurc=7192) [place] [address] POCT-CALCIUM [id number] 05:24:00 Test Item Value Reference Range Comments POC-CALCIUM IONIZED (BEAKER) 1.19 mmol/L 1.12-1.27 TESTED AT [address] (test rymh=3967) [facility] [address] [id number] 05:24:00 Test Item Value Reference Range Comments POC-HEMATOCRIT (BEAKER) (test 27 % 36-45 TESTED AT [address] jcin=4035) [place] [address] [id number] 05:24:00 Test Item Value Reference Range Comments POC-HEMOGLOBIN (BEAKER) 9.2 g/dL 12.0-15.0 TESTED AT [address] (test xxic=3328) [place] [id number] AT [address] [address] RAD, CHEST, 1 VIEW, NON [id number] 05:16:00Reason for exam:-> HypotensionShould this be performed [...] Verified Date/Time: 10/02/2017 05 :16:31 Reading Location: [address] Transitional Reading Room CBC W/PLT COUNT & AUTO [id number] 05:06:00 Test Item Value Reference Range Comments WHITE BLOOD CELL COUNT (BEAKER) (test mwpg=283) 12.4 K/ L 3.5-10.5 RED BLOOD CELL COUNT (BEAKER) (test kjyv=466) 3.04 M/ L 3.93-5.22 HEMOGLOBIN (BEAKER) (test qkaa=117) 9.1 GM/DL 11.2-15.7 HEMATOCRIT (BEAKER) (test tejh=840) 30.7 % 34.1-44.9 MEAN CORPUSCULAR VOLUME (BEAKER) (test pncz=912) 101.0 fL 79.4-94.8 MEAN CORPUSCULAR HEMOGLOBIN (BEAKER) (test 29.9 pg 25.6-32.2 vnkn=154) MEAN CORPUSCULAR HEMOGLOBIN CONC (BEAKER) (test 29.6 GM/DL 32.2-35.5 zoww=094) RED CELL DISTRIBUTION WIDTH (BEAKER) (test 13.6 % 11.7-14.4 pfdm=477) PLATELET COUNT (BEAKER) (test pgev=720) 308 K/CU MM 150-450 MEAN PLATELET VOLUME (BEAKER) (test ajgp=290) 10.0 fL 9.4-12.3 NUCLEATED RED BLOOD CELLS (BEAKER) (test 5 /100 WBC 0-0 vjkc=770) NEUTROPHILS RELATIVE PERCENT (BEAKER) (test 79 % gijb=578) LYMPHOCYTES RELATIVE PERCENT (BEAKER) (test 9 % rrkh=967) MONOCYTES RELATIVE PERCENT (BEAKER) (test 8 % zjqp=659) EOSINOPHILS RELATIVE PERCENT (BEAKER) (test 3 % dqra=697) BASOPHILS RELATIVE PERCENT (BEAKER) (test 1 % yujt=116) NEUTROPHILS ABSOLUTE COUNT (BEAKER) (test 9.74 K/ L 1.56-6.13 jtkv=424) LYMPHOCYTES ABSOLUTE COUNT (BEAKER) (test 1.16 K/ L 1.18-3.74 fkwy=031) MONOCYTES ABSOLUTE COUNT (BEAKER) (test 0.96 K/ L 0.24-0.36 ddln=704) EOSINOPHILS ABSOLUTE COUNT (BEAKER) (test 0.31 K/ L 0.04-0.36 yecn=575) BASOPHILS ABSOLUTE COUNT (BEAKER) (test 0.08 K/ L 0.01-0.08 goqa=018) IMMATURE GRANULOCYTES-RELATIVE PERCENT (BEAKER) 1 % 0-1 (test lbkt=4158) POCT-LACTIC ACID, [id number] 04:50:00 Test Item Value Reference Range Comments POC-LACTIC ACID, VENOUS 3.0 mmol/L 0.9-1.7 TESTED AT [address] (BEAKER) (test odaf=8511) [place] [id number] POCT-GLUCOSE [id number] 21:00:00 Test Item Value Reference Range Comments POC-GLUCOSE METER (BEAKER) 245 mg/dL 70-110 TESTED AT [address] (test pewv=2051) [place] [address] MR, BRAIN, WITHOUT [id number] 18:04:00FINAL REPORT MRI brain Comparison: Head CT [...] of acute intracranial abnormality. Signed: Kaylyn Watts Verified Date/Time: 10/01/2017 18:04:34 POCT-GLUCOSE [id number] 12:06:00 Test Item Value Reference Range Comments POC-GLUCOSE METER (BEAKER) 168 mg/dL 70-110 TESTED AT [address] (test yqvy=2568) [place] [address] POCT-GLUCOSE [id number] 07:40:00 Test Item Value Reference Range Comments POC-GLUCOSE METER (BEAKER) 207 mg/dL 70-110 TESTED AT [address] (test mhmg=4820) [place] [id number] BASIC METABOLIC [id number] 06:19:00 Test Item Value Reference Range Comments SODIUM (BEAKER) (test 138 meq/L 136-145 isuc=122) POTASSIUM (BEAKER) (test 3.3 meq/L 3.5-5.1 opas=283) CHLORIDE (BEAKER) (test 99 meq/L 98-107 gxku=841) CO2 (BEAKER) (test 26 meq/L 22-29 ijbq=676) BLOOD UREA NITROGEN 39 mg/dL 7-21 (BEAKER) (test rxgc=425) CREATININE (BEAKER) (test 7.88 mg/dL 0.57-1.25 poch=397) GLUCOSE RANDOM (BEAKER) 204 mg/dL 70-105 (test jhwq=987) CALCIUM (BEAKER) (test 9.4 mg/dL 8.4-10.2 khhc=795) EGFR (BEAKER) (test 5 mL/min/1.73 sq m ESTIMATED GFR IS NOT mnas=6047) ACCURATE CREATININE CLEARANCE IN PREDICTING GLOMERULAR FILTRATION RATE. ESTIMATED GFR IS NOT APPLICABLE FOR DIALYSIS PATIENTS. [id number] 06:18:00 Test Item Value Reference Range Comments PHOSPHORUS (BEAKER) (test zrfm=264) 4.1 mg/dL 2.3-4.7 [id number] 06:18:00 Test Item Value Reference Range Comments MAGNESIUM (BEAKER) (test sedp=754) 2.0 mg/dL 1.6-2.6 CBC W/PLT COUNT & AUTO [id number] 05:42:00 Test Item Value Reference Range Comments WHITE BLOOD CELL COUNT (BEAKER) (test xeph=706) 15.1 K/ L 3.5-10.5 RED BLOOD CELL COUNT (BEAKER) (test lenp=249) 2.80 M/ L 3.93-5.22 HEMOGLOBIN (BEAKER) (test bffi=296) 8.3 GM/DL 11.2-15.7 HEMATOCRIT (BEAKER) (test vtgc=294) 27.7 % 34.1-44.9 MEAN CORPUSCULAR VOLUME (BEAKER) (test fubb=553) 98.9 fL 79.4-94.8 MEAN CORPUSCULAR HEMOGLOBIN (BEAKER) (test 29.6 pg 25.6-32.2 oeeb=488) MEAN CORPUSCULAR HEMOGLOBIN CONC (BEAKER) (test 30.0 GM/DL 32.2-35.5 oran=768) RED CELL DISTRIBUTION WIDTH (BEAKER) (test 13.4 % 11.7-14.4 kgmy=853) PLATELET COUNT (BEAKER) (test ueqc=737) 300 K/CU MM 150-450 MEAN PLATELET VOLUME (BEAKER) (test dynz=805) 9.8 fL 9.4-12.3 NUCLEATED RED BLOOD CELLS (BEAKER) (test 2 /100 WBC 0-0 shtz=947) NEUTROPHILS RELATIVE PERCENT (BEAKER) (test 79 % wllw=690) LYMPHOCYTES RELATIVE PERCENT (BEAKER) (test 9 % xols=543) MONOCYTES RELATIVE PERCENT (BEAKER) (test 8 % fawa=727) EOSINOPHILS RELATIVE PERCENT (BEAKER) (test 1 % ozpl=597) BASOPHILS RELATIVE PERCENT (BEAKER) (test 1 % yugb=030) NEUTROPHILS ABSOLUTE COUNT (BEAKER) (test 12.01 K/ L 1.56-6.13 rudc=473) LYMPHOCYTES ABSOLUTE COUNT (BEAKER) (test 1.42 K/ L 1.18-3.74 njke=927) MONOCYTES ABSOLUTE COUNT (BEAKER) (test 1.16 K/ L 0.24-0.36 chpt=716) EOSINOPHILS ABSOLUTE COUNT (BEAKER) (test 0.20 K/ L 0.04-0.36 yxxb=360) BASOPHILS ABSOLUTE COUNT (BEAKER) (test 0.07 K/ L 0.01-0.08 crrd=767) IMMATURE GRANULOCYTES-RELATIVE PERCENT (BEAKER) 2 % 0-1 (test bykv=5768) BLOOD [id number] 00:00:00 Test Item Value Reference Range Comments CULTURE (BEAKER) (test xfwu=2505) No growth in 5 days BLOOD [id number] 00:00:00 Test Item Value Reference Range Comments CULTURE (BEAKER) (test oltw=3155) No growth in 5 days POCT-GLUCOSE [id number] 21:39:00 Test Item Value Reference Range Comments POC-GLUCOSE METER (BEAKER) 222 mg/dL 70-110 TESTED AT [address] (test vgjw=6146) [facility] [address] POCT-GLUCOSE [id number] 17:25:00 Test Item Value Reference Range Comments POC-GLUCOSE METER (BEAKER) 167 mg/dL 70-110 TESTED AT [address] (test bozw=5544) [facility] [address] POCT-GLUCOSE [id number] 13:04:00 Test Item Value Reference Range Comments POC-GLUCOSE METER (BEAKER) 192 mg/dL 70-110 TESTED AT [address] (test sddv=5485) [facility] [address] POCT-GLUCOSE [id number] 12:17:00 Test Item Value Reference Range Comments POC-GLUCOSE METER (BEAKER) 152 mg/dL 70-110 TESTED AT [facility] [address] (test suyb=8604) [facility] [address] POCT-GLUCOSE [id number] 08:31:00 Test Item Value Reference Range Comments POC-GLUCOSE METER (BEAKER) 206 mg/dL 70-110 TESTED AT [facility] [address] (test jsxc=3272) [facility] [address] BASIC METABOLIC [id number] 05:59:00 Test Item Value Reference Range Comments SODIUM (BEAKER) (test 134 meq/L 136-145 wzdl=669) POTASSIUM (BEAKER) (test 3.4 meq/L 3.5-5.1 mupa=245) CHLORIDE (BEAKER) (test 100 meq/L 98-107 xrsx=264) CO2 (BEAKER) (test 20 meq/L 22-29 ysln=261) BLOOD UREA NITROGEN 37 mg/dL 7-21 (BEAKER) (test jrot=914) CREATININE (BEAKER) (test 7.44 mg/dL 0.57-1.25 jcyu=412) GLUCOSE RANDOM (BEAKER) 236 mg/dL 70-105 (test aokc=796) CALCIUM (BEAKER) (test 9.1 mg/dL 8.4-10.2 fuph=983) EGFR (BEAKER) (test 5 mL/min/1.73 sq m ESTIMATED GFR IS NOT qwro=2971) ACCURATE CREATININE CLEARANCE IN PREDICTING GLOMERULAR FILTRATION RATE. ESTIMATED GFR IS NOT APPLICABLE FOR DIALYSIS PATIENTS. [id number] 05:57:00 Test Item Value Reference Range Comments PHOSPHORUS (BEAKER) (test jyes=735) 3.7 mg/dL 2.3-4.7 [id number] 05:57:00 Test Item Value Reference Range Comments MAGNESIUM (BEAKER) (test hhpr=863) 2.0 mg/dL 1.6-2.6 CBC W/PLT COUNT & AUTO [id number] 05:06:00 Test Item Value Reference Range Comments WHITE BLOOD CELL COUNT (BEAKER) (test tuhx=968) 14.3 K/ L 3.5-10.5 RED BLOOD CELL COUNT (BEAKER) (test yjxd=479) 2.85 M/ L 3.93-5.22 HEMOGLOBIN (BEAKER) (test oggz=448) 8.4 GM/DL 11.2-15.7 HEMATOCRIT (BEAKER) (test ydgh=253) 28.4 % 34.1-44.9 MEAN CORPUSCULAR VOLUME (BEAKER) (test ljvq=132) 99.6 fL 79.4-94.8 MEAN CORPUSCULAR HEMOGLOBIN (BEAKER) (test 29.5 pg 25.6-32.2 bpni=601) MEAN CORPUSCULAR HEMOGLOBIN CONC (BEAKER) (test 29.6 GM/DL 32.2-35.5 pthu=697) RED CELL DISTRIBUTION WIDTH (BEAKER) (test 13.2 % 11.7-14.4 iuhx=751) PLATELET COUNT (BEAKER) (test tslg=690) 341 K/CU MM 150-450 MEAN PLATELET VOLUME (BEAKER) (test kcgj=836) 9.7 fL 9.4-12.3 NUCLEATED RED BLOOD CELLS (BEAKER) (test 1 /100 WBC 0-0 ytcg=995) NEUTROPHILS RELATIVE PERCENT (BEAKER) (test 75 % xjtc=717) LYMPHOCYTES RELATIVE PERCENT (BEAKER) (test 13 % wmkr=369) MONOCYTES RELATIVE PERCENT (BEAKER) (test 8 % ekkm=247) EOSINOPHILS RELATIVE PERCENT (BEAKER) (test 2 % egty=697) BASOPHILS RELATIVE PERCENT (BEAKER) (test 1 % uaax=361) NEUTROPHILS ABSOLUTE COUNT (BEAKER) (test 10.72 K/ L 1.56-6.13 mlso=221) LYMPHOCYTES ABSOLUTE COUNT (BEAKER) (test 1.85 K/ L 1.18-3.74 rggx=278) MONOCYTES ABSOLUTE COUNT (BEAKER) (test 1.07 K/ L 0.24-0.36 cxzw=305) EOSINOPHILS ABSOLUTE COUNT (BEAKER) (test 0.21 K/ L 0.04-0.36 kjun=953) BASOPHILS ABSOLUTE COUNT (BEAKER) (test 0.08 K/ L 0.01-0.08 bchu=394) IMMATURE GRANULOCYTES-RELATIVE PERCENT (BEAKER) 3 % 0-1 (test etzc=2154) POCT-GLUCOSE [id number] 20:55:00 Test Item Value Reference Range Comments POC-GLUCOSE METER (BEAKER) 186 mg/dL 70-110 TESTED AT [address] (test urss=1759) [facility] [address] POCT-GLUCOSE [id number] 17:30:00 Test Item Value Reference Range Comments POC-GLUCOSE METER (BEAKER) 135 mg/dL 70-110 TESTED AT [facility] [address] (test mobi=7306) [facility] [address] LACTIC ACID, VENOUS, WHOLE [id number] 15:02:00 Test Item Value Reference Range Comments LACTATE BLOOD VENOUS (2) (BEAKER) (test 2.1 mmol/L 0.5-2.2 hmfd=9887) Effective 07/04/2015: Units/Reference Range ChangeNew: 0.5-2.2 mmol/L Previous: 5 -20 mg/dLU/S, ABDOMINAL, [id number] 13:53:00Reason for exam:->delirium , patient on peritoneal dialysis and ? infection. Diagnosis onlyFINAL REPORT Limited abdominal ultrasound Clinical History: Delirium Technique: Limited abdominal ultrasound is performed in all four quadrants to assess for presence of ascitesin anticipation of paracentesis. No significant ascites identified. Impression: No significant ascites. Paracentesis was not performed. Signed: Niko Osullivaneport Verified Date/Time: 09/29/2017 13:53: 14 Reading Location: [address] Ultrasound Reading Room [facility] METABOLIC [id number] 07:43:00 Test Item Value Reference Range Comments SODIUM (BEAKER) (test 136 meq/L 136-145 fcra=134) POTASSIUM (BEAKER) (test 3.5 meq/L 3.5-5.1 qduz=722) CHLORIDE (BEAKER) (test 98 meq/L 98-107 uywz=292) CO2 (BEAKER) (test 22 meq/L 22-29 mlkr=487) BLOOD UREA NITROGEN 41 mg/dL 7-21 (BEAKER) (test ywct=134) CREATININE (BEAKER) (test 7.35 mg/dL 0.57-1.25 hzmg=381) GLUCOSE RANDOM (BEAKER) 106 mg/dL 70-105 (test ewxj=519) CALCIUM (BEAKER) (test 9.2 mg/dL 8.4-10.2 bewu=029) EGFR (BEAKER) (test 5 mL/min/1.73 sq m ESTIMATED GFR IS NOT qtyj=5934) ACCURATE CREATININE CLEARANCE IN PREDICTING GLOMERULAR FILTRATION RATE. ESTIMATED GFR IS NOT APPLICABLE FOR DIALYSIS PATIENTS. POCT-GLUCOSE [id number] 07:41:00 Test Item Value Reference Range Comments POC-GLUCOSE METER (BEAKER) 127 mg/dL 70-110 TESTED AT [facility] [address] (test iwqg=5057) [facility] [address] [id number] 07:14:00 Test Item Value Reference Range Comments PHOSPHORUS (BEAKER) (test ntra=457) 3.9 mg/dL 2.3-4.7 [id number] 07:14:00 Test Item Value Reference Range Comments MAGNESIUM (BEAKER) (test fgwp=760) 2.0 mg/dL 1.6-2.6 CBC W/PLT COUNT & AUTO [id number] 06:32:00 Test Item Value Reference Range Comments WHITE BLOOD CELL COUNT (BEAKER) (test rxbg=943) 17.4 K/ L 3.5-10.5 RED BLOOD CELL COUNT (BEAKER) (test qprg=719) 2.89 M/ L 3.93-5.22 HEMOGLOBIN (BEAKER) (test zapb=167) 8.5 GM/DL 11.2-15.7 HEMATOCRIT (BEAKER) (test dbth=172) 28.7 % 34.1-44.9 MEAN CORPUSCULAR VOLUME (BEAKER) (test upcz=024) 99.3 fL 79.4-94.8 MEAN CORPUSCULAR HEMOGLOBIN (BEAKER) (test 29.4 pg 25.6-32.2 nvlh=677) MEAN CORPUSCULAR HEMOGLOBIN CONC (BEAKER) (test 29.6 GM/DL 32.2-35.5 epkw=129) RED CELL DISTRIBUTION WIDTH (BEAKER) (test 12.9 % 11.7-14.4 ngzf=416) PLATELET COUNT (BEAKER) (test fsor=010) 369 K/CU MM 150-450 MEAN PLATELET VOLUME (BEAKER) (test hbiw=884) 9.8 fL 9.4-12.3 NUCLEATED RED BLOOD CELLS (BEAKER) (test 0 /100 WBC 0-0 ebfl=211) NEUTROPHILS RELATIVE PERCENT (BEAKER) (test 78 % ixcu=601) LYMPHOCYTES RELATIVE PERCENT (BEAKER) (test 12 % siae=074) MONOCYTES RELATIVE PERCENT (BEAKER) (test 7 % stpr=560) EOSINOPHILS RELATIVE PERCENT (BEAKER) (test 1 % ugse=225) BASOPHILS RELATIVE PERCENT (BEAKER) (test 1 % zfge=856) NEUTROPHILS ABSOLUTE COUNT (BEAKER) (test 13.62 K/ L 1.56-6.13 ithj=858) LYMPHOCYTES ABSOLUTE COUNT (BEAKER) (test 2.07 K/ L 1.18-3.74 syth=116) MONOCYTES ABSOLUTE COUNT (BEAKER) (test 1.26 K/ L 0.24-0.36 wboc=005) EOSINOPHILS ABSOLUTE COUNT (BEAKER) (test 0.12 K/ L 0.04-0.36 lzem=079) BASOPHILS ABSOLUTE COUNT (BEAKER) (test 0.08 K/ L 0.01-0.08 hlrr=503) IMMATURE GRANULOCYTES-RELATIVE PERCENT (BEAKER) 1 % 0-1 (test kiah=7606) POCT-GLUCOSE [id number] 20:33:00 Test Item Value Reference Range Comments POC-GLUCOSE METER (BEAKER) 306 mg/dL 70-110 TESTED AT [address] (test sxvb=7821) [facility] [address] POCT-GLUCOSE [id number] 17:21:00 Test Item Value Reference Range Comments POC-GLUCOSE METER (BEAKER) 125 mg/dL 70-110 TESTED AT [address] (test dvjv=8383) [facility] [address] [id number] 15:10:00 Test Item Value Reference Range Comments PROTIME (BEAKER) (test rzgw=427) 15.3 seconds 11.7-14.7 INR (BEAKER) (test gtrn=374) 1.2 <=5.9 PARTIAL THROMBOPLASTIN TIME (BEAKER) (test 26.7 seconds 22.5-36.0 edqu=585) RECOMMENDED COUMADIN/WARFARIN INR THERAPY RANGESSTANDARD DOSE: 2.0 - 3.0 Includes: PROPHYLAXIS forvenous thrombosis, systemic embolization; TREATMENT for venous thrombosis and/or pulmonary embolus.HIGH RISK: Target INR is 2.5-3.5 for patients with mechanical heart valves.POCT-GLUCOSE [id number] 12:35:00 Test Item Value Reference Range Comments POC-GLUCOSE METER (BEAKER) 170 mg/dL 70-110 TESTED AT [address] (test oggq=7711) [place] [address] BASIC METABOLIC [id number] 08:38:00 Test Item Value Reference Range Comments SODIUM (BEAKER) (test 132 meq/L 136-145 jgdw=962) POTASSIUM (BEAKER) (test 3.6 meq/L 3.5-5.1 irgn=815) CHLORIDE (BEAKER) (test 97 meq/L 98-107 lcht=213) CO2 (BEAKER) (test 22 meq/L 22-29 pxhb=843) BLOOD UREA NITROGEN 34 mg/dL 7-21 (BEAKER) (test yvvk=500) CREATININE (BEAKER) (test 6.33 mg/dL 0.57-1.25 gakd=649) GLUCOSE RANDOM (BEAKER) 133 mg/dL 70-105 (test pent=243) CALCIUM (BEAKER) (test 9.1 mg/dL 8.4-10.2 dvic=747) EGFR (BEAKER) (test 6 mL/min/1.73 sq m ESTIMATED GFR IS NOT fnde=6599) ACCURATE CREATININE CLEARANCE IN PREDICTING GLOMERULAR FILTRATION RATE. ESTIMATED GFR IS NOT APPLICABLE FOR DIALYSIS PATIENTS. VANCOMYCIN LEVEL, [id number] 08:25:00 Test Item Value Reference Range Comments VANCOMYCIN RANDOM (BEAKER) (test hloj=115) 23.7 ug/mL Reference Range: No [id number] 08:07:00 Test Item Value Reference Range Comments PHOSPHORUS (BEAKER) (test cukl=134) 3.2 mg/dL 2.3-4.7 [id number] 08:07:00 Test Item Value Reference Range Comments MAGNESIUM (BEAKER) (test mtef=754) 1.9 mg/dL 1.6-2.6 POCT-GLUCOSE [id number] 08:00:00 Test Item Value Reference Range Comments POC-GLUCOSE METER (BEAKER) 113 mg/dL 70-110 TESTED AT [facility] [address] (test bimm=1632) [place] [address] CBC W/PLT COUNT & AUTO [id number] 06:25:00 Test Item Value Reference Range Comments WHITE BLOOD CELL COUNT (BEAKER) (test ocjj=496) 12.9 K/ L 3.5-10.5 RED BLOOD CELL COUNT (BEAKER) (test qcdo=398) 2.87 M/ L 3.93-5.22 HEMOGLOBIN (BEAKER) (test eskt=607) 8.6 GM/DL 11.2-15.7 HEMATOCRIT (BEAKER) (test pcma=944) 29.4 % 34.1-44.9 MEAN CORPUSCULAR VOLUME (BEAKER) (test iavr=375) 102.4 fL 79.4-94.8 MEAN CORPUSCULAR HEMOGLOBIN (BEAKER) (test 30.0 pg 25.6-32.2 kggi=227) MEAN CORPUSCULAR HEMOGLOBIN CONC (BEAKER) (test 29.3 GM/DL 32.2-35.5 hqeg=194) RED CELL DISTRIBUTION WIDTH (BEAKER) (test 13.2 % 11.7-14.4 kzhz=104) PLATELET COUNT (BEAKER) (test ajch=073) 228 K/CU MM 150-450 MEAN PLATELET VOLUME (BEAKER) (test jscu=052) 10.1 fL 9.4-12.3 NUCLEATED RED BLOOD CELLS (BEAKER) (test 0 /100 WBC 0-0 xkuf=679) NEUTROPHILS RELATIVE PERCENT (BEAKER) (test 72 % oiac=475) LYMPHOCYTES RELATIVE PERCENT (BEAKER) (test 16 % bhlh=663) MONOCYTES RELATIVE PERCENT (BEAKER) (test 8 % ggpi=424) EOSINOPHILS RELATIVE PERCENT (BEAKER) (test 2 % jvch=270) BASOPHILS RELATIVE PERCENT (BEAKER) (test 1 % sirx=423) NEUTROPHILS ABSOLUTE COUNT (BEAKER) (test 9.32 K/ L 1.56-6.13 cowr=711) LYMPHOCYTES ABSOLUTE COUNT (BEAKER) (test 2.12 K/ L 1.18-3.74 dqik=164) MONOCYTES ABSOLUTE COUNT (BEAKER) (test 1.06 K/ L 0.24-0.36 cngw=507) EOSINOPHILS ABSOLUTE COUNT (BEAKER) (test 0.25 K/ L 0.04-0.36 kbbc=666) BASOPHILS ABSOLUTE COUNT (BEAKER) (test 0.08 K/ L 0.01-0.08 mtpb=719) IMMATURE GRANULOCYTES-RELATIVE PERCENT (BEAKER) 1 % 0-1 (test qmfv=5402) GRAM [id number] 23:04:00 Test Item Value Reference Range Comments GRAM STAIN RESULT (BEAKER) (test <1+ WBCs stnz=3733) GRAM STAIN RESULT (BEAKER) (test No organisms seen cbtq=17285) POCT-GLUCOSE [id number] 21:53:00 Test Item Value Reference Range Comments POC-GLUCOSE METER (BEAKER) 212 mg/dL 70-110 TESTED AT [address] (test blzi=1542) [place] [id number] POCT-GLUCOSE [id number] 18:10:00 Test Item Value Reference Range Comments POC-GLUCOSE METER (BEAKER) 121 mg/dL 70-110 TESTED AT [address] (test iwtp=9303) [place] [address] POCT-GLUCOSE [id number] 18:09:00 Test Item Value Reference Range Comments POC-GLUCOSE METER (BEAKER) 112 mg/dL 70-110 TESTED AT [address] (test yfwd=5710) [place] [address] POCT-GLUCOSE [id number] 18:05:00 Test Item Value Reference Range Comments POC-GLUCOSE METER (BEAKER) 157 mg/dL 70-110 TESTED AT [address] (test fhya=8832) [place] [address] CBC W/PLT COUNT & AUTO [id number] 10:02:00 Test Item Value Reference Range Comments WHITE BLOOD CELL COUNT (BEAKER) (test cxav=849) 12.6 K/ L 3.5-10.5 RED BLOOD CELL COUNT (BEAKER) (test vaux=696) 2.72 M/ L 3.93-5.22 HEMOGLOBIN (BEAKER) (test ideu=155) 8.1 GM/DL 11.2-15.7 HEMATOCRIT (BEAKER) (test pkvm=870) 26.3 % 34.1-44.9 MEAN CORPUSCULAR VOLUME (BEAKER) (test eabl=819) 96.7 fL 79.4-94.8 MEAN CORPUSCULAR HEMOGLOBIN (BEAKER) (test 29.8 pg 25.6-32.2 pxpq=828) MEAN CORPUSCULAR HEMOGLOBIN CONC (BEAKER) (test 30.8 GM/DL 32.2-35.5 hrhh=067) RED CELL DISTRIBUTION WIDTH (BEAKER) (test 13.0 % 11.7-14.4 dfuc=368) PLATELET COUNT (BEAKER) (test ibmy=889) 251 K/CU MM 150-450 MEAN PLATELET VOLUME (BEAKER) (test tjux=620) 9.3 fL 9.4-12.3 NUCLEATED RED BLOOD CELLS (BEAKER) (test 0 /100 WBC 0-0 axbp=171) NEUTROPHILS RELATIVE PERCENT (BEAKER) (test 74 % huml=031) LYMPHOCYTES RELATIVE PERCENT (BEAKER) (test 15 % hzme=448) MONOCYTES RELATIVE PERCENT (BEAKER) (test 8 % qnpn=453) EOSINOPHILS RELATIVE PERCENT (BEAKER) (test 3 % uyqc=853) BASOPHILS RELATIVE PERCENT (BEAKER) (test 1 % tloa=210) NEUTROPHILS ABSOLUTE COUNT (BEAKER) (test 9.30 K/ L 1.56-6.13 unbn=534) LYMPHOCYTES ABSOLUTE COUNT (BEAKER) (test 1.87 K/ L 1.18-3.74 mxxh=502) MONOCYTES ABSOLUTE COUNT (BEAKER) (test 0.99 K/ L 0.24-0.36 lasp=643) EOSINOPHILS ABSOLUTE COUNT (BEAKER) (test 0.33 K/ L 0.04-0.36 nszp=800) BASOPHILS ABSOLUTE COUNT (BEAKER) (test 0.06 K/ L 0.01-0.08 nzoc=736) IMMATURE GRANULOCYTES-RELATIVE PERCENT (BEAKER) 1 % 0-1 (test qsqh=9965) BASIC METABOLIC [id number] 07:07:00 Test Item Value Reference Range Comments SODIUM (BEAKER) (test 135 meq/L 136-145 lyzo=332) POTASSIUM (BEAKER) (test 3.2 meq/L 3.5-5.1 cmuv=484) CHLORIDE (BEAKER) (test 99 meq/L 98-107 shku=767) CO2 (BEAKER) (test 23 meq/L 22-29 irgg=385) BLOOD UREA NITROGEN 39 mg/dL 7-21 (BEAKER) (test xzcn=395) CREATININE (BEAKER) (test 6.73 mg/dL 0.57-1.25 bkbr=156) GLUCOSE RANDOM (BEAKER) 125 mg/dL 70-105 (test ifro=985) CALCIUM (BEAKER) (test 8.6 mg/dL 8.4-10.2 jnaq=240) EGFR (BEAKER) (test 6 mL/min/1.73 sq m ESTIMATED GFR IS NOT wzra=2969) ACCURATE CREATININE CLEARANCE IN PREDICTING GLOMERULAR FILTRATION RATE. ESTIMATED GFR IS NOT APPLICABLE FOR DIALYSIS PATIENTS. [id number] 07:05:00 Test Item Value Reference Range Comments PHOSPHORUS (BEAKER) (test cpao=643) 3.5 mg/dL 2.3-4.7 [id number] 07:05:00 Test Item Value Reference Range Comments MAGNESIUM (BEAKER) (test indp=970) 2.0 mg/dL 1.6-2.6 BODY FLUID CELL COUNT WITH [id number] 21:57:00 Test Item Value Reference Range Comments APPEARANCE FLUID (BEAKER) (test ktus=706) Clear Clear COLOR FLUID (BEAKER) (test ojjz=332) Colorless Colorless, Straw RBC FLUID (BEAKER) (test dlbw=168) 1 /cu mm <=1 ADJUSTED WBC FLUID (BEAKER) (test rfxb=6879) 5 /cu mm <=5 LINING CELLS (BEAKER) (test vmnp=5718) 0 /cu mm <=1 NEUTROPHILS FLUID (BEAKER) (test wjrd=1997) 10 % LYMPHS FLUID (BEAKER) (test zhzd=220) 40 % MONO/MACROPHAGE FLUID (BEAKER) (test iikp=066) 50 % EOSINOPHILS FLUID (BEAKER) (test rdls=241) 0 % BASO FLUID (BEAKER) (test cbjb=158) 0 % CONTAINER BODY FLUID (BEAKER) (test raac=2903) EDTA Tube POCT-GLUCOSE [id number] 21:35:00 Test Item Value Reference Range Comments POC-GLUCOSE METER (BEAKER) 191 mg/dL 70-110 TESTED AT [facility] [address] [place] [address] (test iimc=2305) [facility] [address] POCT-GLUCOSE [id number] 17:13:00 Test Item Value Reference Range Comments POC-GLUCOSE METER (BEAKER) 146 mg/dL 70-110 TESTED AT [address] (test szsf=6917) [facility] [address] POCT-GLUCOSE [id number] 16:35:00 Test Item Value Reference Range Comments POC-GLUCOSE METER (BEAKER) 147 mg/dL 70-110 TESTED AT [address] (test alrx=0212) [place] [id number] POCT-GLUCOSE [id number] 12:18:00 Test Item Value Reference Range Comments POC-GLUCOSE METER (BEAKER) 144 mg/dL 70-110 TESTED AT [address] (test adqa=7908) [place] [address] [id number] 11:24:00 Test Item Value Reference Range Comments PREALBUMIN (BEAKER) (test pazx=990) 33 mg/dL 14-45 POCT-GLUCOSE [id number] 07:44:00 Test Item Value Reference Range Comments POC-GLUCOSE METER (BEAKER) 153 mg/dL 70-110 TESTED AT [address] (test blee=1246) [place] [address] BASIC METABOLIC [id number] 06:26:00 Test Item Value Reference Range Comments SODIUM (BEAKER) (test 135 meq/L 136-145 uvkk=781) POTASSIUM (BEAKER) (test 3.3 meq/L 3.5-5.1 uwyd=480) CHLORIDE (BEAKER) (test 97 meq/L 98-107 nedq=710) CO2 (BEAKER) (test 22 meq/L 22-29 ppay=448) BLOOD UREA NITROGEN 39 mg/dL 7-21 (BEAKER) (test ivig=685) CREATININE (BEAKER) (test 6.56 mg/dL 0.57-1.25 sclt=252) GLUCOSE RANDOM (BEAKER) 160 mg/dL 70-105 (test grps=693) CALCIUM (BEAKER) (test 8.9 mg/dL 8.4-10.2 feoe=804) EGFR (BEAKER) (test 6 mL/min/1.73 sq m ESTIMATED GFR IS NOT vcad=0554) ACCURATE CREATININE CLEARANCE IN PREDICTING GLOMERULAR FILTRATION RATE. ESTIMATED GFR IS NOT APPLICABLE FOR DIALYSIS PATIENTS. [id number] 06:24:00 Test Item Value Reference Range Comments PHOSPHORUS (BEAKER) (test xrtx=375) 4.3 mg/dL 2.3-4.7 [id number] 06:24:00 Test Item Value Reference Range Comments MAGNESIUM (BEAKER) (test ocgb=782) 1.9 mg/dL 1.6-2.6 LACTIC ACID, VENOUS, WHOLE [id number] 06:02:00 Test Item Value Reference Range Comments LACTATE BLOOD VENOUS (2) (BEAKER) (test 2.5 mmol/L 0.5-2.2 kvtr=2892) Effective 07/04/2015: Units/Reference Range ChangeNew: 0.5-2.2 mmol/L Previous: 5 -20 mg/dLCBC W/PLT COUNT & AUTO [id number] 05:56:00 Test Item Value Reference Range Comments WHITE BLOOD CELL COUNT (BEAKER) (test irmm=993) 11.1 K/ L 3.5-10.5 RED BLOOD CELL COUNT (BEAKER) (test fxjm=041) 2.98 M/ L 3.93-5.22 HEMOGLOBIN (BEAKER) (test fqah=710) 8.9 GM/DL 11.2-15.7 HEMATOCRIT (BEAKER) (test zhrk=827) 28.9 % 34.1-44.9 MEAN CORPUSCULAR VOLUME (BEAKER) (test xhko=365) 97.0 fL 79.4-94.8 MEAN CORPUSCULAR HEMOGLOBIN (BEAKER) (test 29.9 pg 25.6-32.2 mufv=596) MEAN CORPUSCULAR HEMOGLOBIN CONC (BEAKER) (test 30.8 GM/DL 32.2-35.5 mvcu=084) RED CELL DISTRIBUTION WIDTH (BEAKER) (test 13.1 % 11.7-14.4 fqwk=105) PLATELET COUNT (BEAKER) (test zrkx=293) 265 K/CU MM 150-450 MEAN PLATELET VOLUME (BEAKER) (test coop=257) 9.4 fL 9.4-12.3 NUCLEATED RED BLOOD CELLS (BEAKER) (test 1 /100 WBC 0-0 nnae=484) NEUTROPHILS RELATIVE PERCENT (BEAKER) (test 72 % zhkz=098) LYMPHOCYTES RELATIVE PERCENT (BEAKER) (test 17 % sbzg=448) MONOCYTES RELATIVE PERCENT (BEAKER) (test 8 % hfwm=893) EOSINOPHILS RELATIVE PERCENT (BEAKER) (test 2 % eczn=728) BASOPHILS RELATIVE PERCENT (BEAKER) (test 1 % nlkf=666) NEUTROPHILS ABSOLUTE COUNT (BEAKER) (test 7.93 K/ L 1.56-6.13 vmbl=677) LYMPHOCYTES ABSOLUTE COUNT (BEAKER) (test 1.83 K/ L 1.18-3.74 qucn=830) MONOCYTES ABSOLUTE COUNT (BEAKER) (test 0.91 K/ L 0.24-0.36 snsb=889) EOSINOPHILS ABSOLUTE COUNT (BEAKER) (test 0.27 K/ L 0.04-0.36 qemq=439) BASOPHILS ABSOLUTE COUNT (BEAKER) (test 0.06 K/ L 0.01-0.08 iwbz=207) IMMATURE GRANULOCYTES-RELATIVE PERCENT (BEAKER) 1 % 0-1 (test emcy=2184) [id number] 05:55:00 Test Item Value Reference Range Comments PROTIME (BEAKER) (test qake=255) 16.0 seconds 11.7-14.7 INR (BEAKER) (test ndfo=044) 1.3 <=5.9 PARTIAL THROMBOPLASTIN TIME (BEAKER) (test 29.3 seconds 22.5-36.0 bttl=784) RECOMMENDED COUMADIN/WARFARIN INR THERAPY RANGESSTANDARD DOSE: 2.0 - 3.0 Includes: PROPHYLAXIS forvenous thrombosis, systemic embolization; TREATMENT for venous thrombosis and/or pulmonary embolus.HIGH RISK: Target INR is 2.5-3.5 for patients with mechanical heart valves.COMPREHENSIVE METABOLIC [id number] 23:31:00 Test Item Value Reference Range Comments TOTAL PROTEIN (BEAKER) 6.2 gm/dL 6.0-8.3 (test zios=176) ALBUMIN (BEAKER) (test 2.6 g/dL 3.5-5.0 jidi=7979) ALKALINE PHOSPHATASE 105 U/L 40-150 (BEAKER) (test svlk=070) BILIRUBIN TOTAL (BEAKER) 0.5 mg/dL 0.2-1.2 (test rfkv=582) SODIUM (BEAKER) (test 133 meq/L 136-145 qsbb=302) POTASSIUM (BEAKER) (test 3.6 meq/L 3.5-5.1 pwdl=801) CHLORIDE (BEAKER) (test 95 meq/L 98-107 vatf=260) CO2 (BEAKER) (test 23 meq/L 22-29 gwcf=746) BLOOD UREA NITROGEN 46 mg/dL 7-21 (BEAKER) (test jdgl=774) CREATININE (BEAKER) (test 7.11 mg/dL 0.57-1.25 tbbr=053) GLUCOSE RANDOM (BEAKER) 150 mg/dL 70-105 (test aijd=620) CALCIUM (BEAKER) (test 8.6 mg/dL 8.4-10.2 ftkq=841) AST (SGOT) (BEAKER) (test 6 U/L 5-34 kxtn=823) ALT (SGPT) (BEAKER) (test < U/L 6-55 vfyg=111) EGFR (BEAKER) (test 6 mL/min/1.73 sq m ESTIMATED GFR IS NOT gbeg=4403) ACCURATE CREATININE CLEARANCE IN PREDICTING GLOMERULAR FILTRATION RATE. ESTIMATED GFR IS NOT APPLICABLE FOR DIALYSIS PATIENTS. TROPONIN [id number] 23:17:00 Test Item Value Reference Range Comments TROPONIN I (BEAKER) (test qayo=640) 0.10 ng/mL 0.00-0.03 Troponin I (TnI) levels [...] and persistent tachyarrhythmia.CBC W/PLT COUNT & AUTO [id number] 23:05:00 Test Item Value Reference Range Comments WHITE BLOOD CELL COUNT (BEAKER) (test ozpw=231) 12.1 K/ L 3.5-10.5 RED BLOOD CELL COUNT (BEAKER) (test nqlc=985) 2.93 M/ L 3.93-5.22 HEMOGLOBIN (BEAKER) (test sjlj=860) 8.8 GM/DL 11.2-15.7 HEMATOCRIT (BEAKER) (test eqwr=409) 28.3 % 34.1-44.9 MEAN CORPUSCULAR VOLUME (BEAKER) (test zjpj=261) 96.6 fL 79.4-94.8 MEAN CORPUSCULAR HEMOGLOBIN (BEAKER) (test 30.0 pg 25.6-32.2 xsdq=920) MEAN CORPUSCULAR HEMOGLOBIN CONC (BEAKER) (test 31.1 GM/DL 32.2-35.5 losr=051) RED CELL DISTRIBUTION WIDTH (BEAKER) (test 13.0 % 11.7-14.4 elbi=561) PLATELET COUNT (BEAKER) (test nuuw=966) 269 K/CU MM 150-450 MEAN PLATELET VOLUME (BEAKER) (test uctx=317) 9.3 fL 9.4-12.3 NUCLEATED RED BLOOD CELLS (BEAKER) (test 1 /100 WBC 0-0 jokc=910) NEUTROPHILS RELATIVE PERCENT (BEAKER) (test 73 % isiz=515) LYMPHOCYTES RELATIVE PERCENT (BEAKER) (test 18 % kznh=984) MONOCYTES RELATIVE PERCENT (BEAKER) (test 7 % zqen=492) EOSINOPHILS RELATIVE PERCENT (BEAKER) (test 1 % kkfn=557) BASOPHILS RELATIVE PERCENT (BEAKER) (test 0 % qrnz=933) NEUTROPHILS ABSOLUTE COUNT (BEAKER) (test 8.75 K/ L 1.56-6.13 kzqj=082) LYMPHOCYTES ABSOLUTE COUNT (BEAKER) (test 2.13 K/ L 1.18-3.74 zbjc=277) MONOCYTES ABSOLUTE COUNT (BEAKER) (test 0.87 K/ L 0.24-0.36 ojbf=459) EOSINOPHILS ABSOLUTE COUNT (BEAKER) (test 0.17 K/ L 0.04-0.36 gajp=160) BASOPHILS ABSOLUTE COUNT (BEAKER) (test 0.05 K/ L 0.01-0.08 dgdn=732) IMMATURE GRANULOCYTES-RELATIVE PERCENT (BEAKER) 1 % 0-1 (test zlfl=2060) LACTIC ACID, VENOUS, WHOLE [id number] 23:05:00 Test Item Value Reference Range Comments LACTATE BLOOD VENOUS (2) 3.3 mmol/L 0.5-2.2 Specimen slightly hemolyzed (BEAKER) (test stxa=3129) Effective 07/04/2015: Units/Reference Range ChangeNew: 0.5-2.2 mmol/L Previous: 5 -20 mg/dLPOCT-GLUCOSE [id number] 21:47:00 Test Item Value Reference Range Comments POC-GLUCOSE METER (BEAKER) 183 mg/dL 70-110 TESTED AT [address] (test zuyi=7469) [facility] [address] POCT-GLUCOSE [id number] 16:41:00 Test Item Value Reference Range Comments POC-GLUCOSE METER (BEAKER) 126 mg/dL 70-110 TESTED AT [address] (test giln=4083) [place] [address] HIV-1 ANTIGEN WITH HIV-1/2 [id number] 16:28:00 Test Item Value Reference Range Comments HIV-1 ANTIGEN WITH HIV 1\\T\\2 ANTIBODY (2) Nonreactive Nonreactive (BEAKER) (test tnob=4623) Can draw at the time of the next set of labsRAD, CHEST, 1 VIEW, NON [id number] 16:27:00Reason for exam:->r/o PNAShould this be performed at the bedside?- >YesFINAL REPORT TECHNIQUE: Frontal chest radiograph dated 09/25/2017. CLINICAL HISTORY: Rule out pneumonia COMPARISON STUDY: None IMPRESSION: No focal consolidation. No pleural effusion or pneumothorax. Cardiomediastinal silhouette is normal in size. No pulmonary edema. No fracturedegenerative changes are seen in the spine. Bones are osteopenic. Signed : Adeline Carloseport Verified Date/Time: 09/25/2017 16:27:40 Reading Location: [facility] Radiology Reading Room POCT-GLUCOSE [id number] 14:39:00 Test Item Value Reference Range Comments POC-GLUCOSE METER (BEAKER) 133 mg/dL 70-110 TESTED AT [address] (test nvok=8373) [place] [address] POCT-GLUCOSE [id number] 11:38:00 Test Item Value Reference Range Comments POC-GLUCOSE METER (BEAKER) 113 mg/dL 70-110 TESTED AT [address] (test zxat=7474) [place] [address] POCT-GLUCOSE [id number] 08:06:00 Test Item Value Reference Range Comments POC-GLUCOSE METER (BEAKER) 203 mg/dL 70-110 TESTED AT [address] (test bciz=2380) [place] [address] BASIC METABOLIC [id number] 03:48:00 Test Item Value Reference Range Comments SODIUM (BEAKER) (test 133 meq/L 136-145 ohrz=826) POTASSIUM (BEAKER) (test 3.5 meq/L 3.5-5.1 chmn=823) CHLORIDE (BEAKER) (test 96 meq/L 98-107 eknm=372) CO2 (BEAKER) (test 22 meq/L 22-29 waii=433) BLOOD UREA NITROGEN 40 mg/dL 7-21 (BEAKER) (test ltkr=987) CREATININE (BEAKER) (test 6.39 mg/dL 0.57-1.25 ginn=741) GLUCOSE RANDOM (BEAKER) 183 mg/dL 70-105 (test qmqa=085) CALCIUM (BEAKER) (test 8.8 mg/dL 8.4-10.2 egjf=578) EGFR (BEAKER) (test 6 mL/min/1.73 sq m ESTIMATED GFR IS NOT gmqk=3824) ACCURATE CREATININE CLEARANCE IN PREDICTING GLOMERULAR FILTRATION RATE. ESTIMATED GFR IS NOT APPLICABLE FOR DIALYSIS PATIENTS. [id number] 03:46:00 Test Item Value Reference Range Comments PHOSPHORUS (BEAKER) (test cdoy=944) 4.8 mg/dL 2.3-4.7 [id number] 03:46:00 Test Item Value Reference Range Comments MAGNESIUM (BEAKER) (test jkqp=829) 2.0 mg/dL 1.6-2.6 CBC W/PLT COUNT & AUTO [id number] 03:25:00 Test Item Value Reference Range Comments WHITE BLOOD CELL COUNT (BEAKER) (test iusd=252) 11.8 K/ L 3.5-10.5 RED BLOOD CELL COUNT (BEAKER) (test iymy=626) 3.18 M/ L 3.93-5.22 HEMOGLOBIN (BEAKER) (test aaaz=098) 9.3 GM/DL 11.2-15.7 HEMATOCRIT (BEAKER) (test tkou=443) 30.4 % 34.1-44.9 MEAN CORPUSCULAR VOLUME (BEAKER) (test sysb=406) 95.6 fL 79.4-94.8 MEAN CORPUSCULAR HEMOGLOBIN (BEAKER) (test 29.2 pg 25.6-32.2 ojdk=605) MEAN CORPUSCULAR HEMOGLOBIN CONC (BEAKER) (test 30.6 GM/DL 32.2-35.5 etum=005) RED CELL DISTRIBUTION WIDTH (BEAKER) (test 12.8 % 11.7-14.4 odia=273) PLATELET COUNT (BEAKER) (test mmqa=362) 334 K/CU MM 150-450 MEAN PLATELET VOLUME (BEAKER) (test jqdz=544) 9.0 fL 9.4-12.3 NUCLEATED RED BLOOD CELLS (BEAKER) (test 2 /100 WBC 0-0 czus=993) NEUTROPHILS RELATIVE PERCENT (BEAKER) (test 81 % qcqg=394) LYMPHOCYTES RELATIVE PERCENT (BEAKER) (test 11 % gboj=074) MONOCYTES RELATIVE PERCENT (BEAKER) (test 7 % whda=135) EOSINOPHILS RELATIVE PERCENT (BEAKER) (test 1 % sork=780) BASOPHILS RELATIVE PERCENT (BEAKER) (test 0 % kqif=539) NEUTROPHILS ABSOLUTE COUNT (BEAKER) (test 9.54 K/ L 1.56-6.13 hvic=062) LYMPHOCYTES ABSOLUTE COUNT (BEAKER) (test 1.27 K/ L 1.18-3.74 nrih=426) MONOCYTES ABSOLUTE COUNT (BEAKER) (test 0.83 K/ L 0.24-0.36 yypq=253) EOSINOPHILS ABSOLUTE COUNT (BEAKER) (test 0.08 K/ L 0.04-0.36 xcaq=795) BASOPHILS ABSOLUTE COUNT (BEAKER) (test 0.03 K/ L 0.01-0.08 xjdk=716) IMMATURE GRANULOCYTES-RELATIVE PERCENT (BEAKER) 1 % 0-1 (test nxgn=4176) POCT-GLUCOSE [id number] 20:54:00 Test Item Value Reference Range Comments POC-GLUCOSE METER (BEAKER) 291 mg/dL 70-110 TESTED AT [address] (test giua=7441) [facility] [address] POCT-GLUCOSE [id number] 17:22:00 Test Item Value Reference Range Comments POC-GLUCOSE METER (BEAKER) 91 mg/dL 70-110 TESTED AT [address] (test lugx=5788) [facility] [address] POCT-GLUCOSE [id number] 12:14:00 Test Item Value Reference Range Comments POC-GLUCOSE METER (BEAKER) 112 mg/dL 70-110 TESTED AT [address] (test uzhh=1599) [facility] [address] POCT-GLUCOSE [id number] 08:09:00 Test Item Value Reference Range Comments POC-GLUCOSE METER (BEAKER) 125 mg/dL 70-110 TESTED AT [address] (test ajim=4742) [facility] [address] BASIC METABOLIC [id number] 07:17:00 Test Item Value Reference Range Comments SODIUM (BEAKER) (test 130 meq/L 136-145 unna=921) POTASSIUM (BEAKER) (test 3.2 meq/L 3.5-5.1 vebr=068) CHLORIDE (BEAKER) (test 92 meq/L 98-107 qkai=528) CO2 (BEAKER) (test 19 meq/L 22-29 qdwf=144) BLOOD UREA NITROGEN 37 mg/dL 7-21 (BEAKER) (test yvnk=770) CREATININE (BEAKER) (test 6.01 mg/dL 0.57-1.25 ytkp=507) GLUCOSE RANDOM (BEAKER) 150 mg/dL 70-105 (test epwf=098) CALCIUM (BEAKER) (test 8.9 mg/dL 8.4-10.2 wjxp=631) EGFR (BEAKER) (test 7 mL/min/1.73 sq m ESTIMATED GFR IS NOT ufri=5811) ACCURATE CREATININE CLEARANCE IN PREDICTING GLOMERULAR FILTRATION RATE. ESTIMATED GFR IS NOT APPLICABLE FOR DIALYSIS PATIENTS. [id number] 07:16:00 Test Item Value Reference Range Comments PHOSPHORUS (BEAKER) (test kolf=658) 5.1 mg/dL 2.3-4.7 [id number] 07:16:00 Test Item Value Reference Range Comments MAGNESIUM (BEAKER) (test wvyj=317) 2.0 mg/dL 1.6-2.6 CBC W/PLT COUNT & AUTO [id number] 05:50:00 Test Item Value Reference Range Comments WHITE BLOOD CELL COUNT (BEAKER) (test pdkh=725) 13.9 K/ L 3.5-10.5 RED BLOOD CELL COUNT (BEAKER) (test gnci=872) 3.13 M/ L 3.93-5.22 HEMOGLOBIN (BEAKER) (test kkoe=325) 9.2 GM/DL 11.2-15.7 HEMATOCRIT (BEAKER) (test mxbq=301) 30.3 % 34.1-44.9 MEAN CORPUSCULAR VOLUME (BEAKER) (test tnsn=248) 96.8 fL 79.4-94.8 MEAN CORPUSCULAR HEMOGLOBIN (BEAKER) (test 29.4 pg 25.6-32.2 fddz=210) MEAN CORPUSCULAR HEMOGLOBIN CONC (BEAKER) (test 30.4 GM/DL 32.2-35.5 uamy=507) RED CELL DISTRIBUTION WIDTH (BEAKER) (test 12.8 % 11.7-14.4 aqkt=202) PLATELET COUNT (BEAKER) (test ekts=284) 361 K/CU MM 150-450 MEAN PLATELET VOLUME (BEAKER) (test celk=543) 9.5 fL 9.4-12.3 NUCLEATED RED BLOOD CELLS (BEAKER) (test 1 /100 WBC 0-0 bynt=235) NEUTROPHILS RELATIVE PERCENT (BEAKER) (test 83 % tnxn=406) LYMPHOCYTES RELATIVE PERCENT (BEAKER) (test 10 % ilvw=046) MONOCYTES RELATIVE PERCENT (BEAKER) (test 5 % noun=927) EOSINOPHILS RELATIVE PERCENT (BEAKER) (test 1 % ybvb=980) BASOPHILS RELATIVE PERCENT (BEAKER) (test 0 % aalj=068) NEUTROPHILS ABSOLUTE COUNT (BEAKER) (test 11.55 K/ L 1.56-6.13 akkd=141) LYMPHOCYTES ABSOLUTE COUNT (BEAKER) (test 1.34 K/ L 1.18-3.74 kspl=193) MONOCYTES ABSOLUTE COUNT (BEAKER) (test 0.72 K/ L 0.24-0.36 zyfd=188) EOSINOPHILS ABSOLUTE COUNT (BEAKER) (test 0.13 K/ L 0.04-0.36 twmq=342) BASOPHILS ABSOLUTE COUNT (BEAKER) (test 0.04 K/ L 0.01-0.08 peft=326) IMMATURE GRANULOCYTES-RELATIVE PERCENT (BEAKER) 1 % 0-1 (test qacr=6884) [id number] 03:28:00 Test Item Value Reference Range Comments RPR SCREEN (BEAKER) (test pqpp=316) Nonreactive Nonreactive POCT-GLUCOSE [id number] 23:26:00 Test Item Value Reference Range Comments POC-GLUCOSE METER (BEAKER) 188 mg/dL 70-110 TESTED AT [address] (test xhpn=0283) [facility] [address] POCT-GLUCOSE [id number] 17:16:00 Test Item Value Reference Range Comments POC-GLUCOSE METER (BEAKER) 136 mg/dL 70-110 TESTED AT [address] (test vshr=4269) [facility] [address] POCT-GLUCOSE [id number] 17:09:00 Test Item Value Reference Range Comments POC-GLUCOSE METER (BEAKER) 100 mg/dL 70-110 TESTED AT [address] (test hwxe=3771) [facility] [address] POCT-GLUCOSE [id number] 12:10:00 Test Item Value Reference Range Comments POC-GLUCOSE METER (BEAKER) 45 mg/dL 70-110 Notified GERARDO MARION/TESTED AT [facility] (test polv=1272) [address] [place] [address] POCT-GLUCOSE [id number] 07:55:00 Test Item Value Reference Range Comments POC-GLUCOSE METER (BEAKER) 155 mg/dL 70-110 TESTED AT [address] (test ukkb=0146) [facility] [address] BLOOD GAS, [id number] 07:47:00 Test Item Value Reference Range Comments PH VENOUS (BEAKER) (test upin=972) 7.43 7.32-7.42 PCO2 VENOUS (BEAKER) (test bxpe=674) 39 mmHg 41-51 PO2 VENOUS (BEAKER) (test tkad=365) 119 mmHg 25-40 O2 SATURATION VENOUS (BEAKER) (test mscp=564) 98.4 % 40.0-70.0 HCO3 VENOUS (BEAKER) (test eseo=339) 26 mmol/L 21-29 BASE EXCESS VENOUS (BEAKER) (test bwbj=346) 1.4 mmol/L -2.0-3.0 PATIENT TEMPERATURE (BEAKER) (test ummi=6796) 37.1 C FIO2 (BEAKER) (test egfz=6387) 21.0 % TSH/FREE T4 IF [id number] 06:38:00 Test Item Value Reference Range Comments THYROID STIMULATING HORMONE (BEAKER) (test 0.42 uIU/mL 0.35-4.94 qwbf=642) VITAMIN B12 AND [id number] 06:38:00 Test Item Value Reference Range Comments VITAMIN B12 (BEAKER) (test wgnw=964) 560 pg/mL 213-816 FOLATE (BEAKER) (test ipau=277) 6.5 ng/mL >=7.0 BASIC METABOLIC [id number] 06:18:00 Test Item Value Reference Range Comments SODIUM (BEAKER) (test 130 meq/L 136-145 hdlg=574) POTASSIUM (BEAKER) (test 3.3 meq/L 3.5-5.1 dcdj=818) CHLORIDE (BEAKER) (test 91 meq/L 98-107 ndof=460) CO2 (BEAKER) (test 22 meq/L 22-29 page=208) BLOOD UREA NITROGEN 36 mg/dL 7-21 (BEAKER) (test ipsg=918) CREATININE (BEAKER) (test 6.17 mg/dL 0.57-1.25 sils=164) GLUCOSE RANDOM (BEAKER) 194 mg/dL 70-105 (test gbrd=604) CALCIUM (BEAKER) (test 9.3 mg/dL 8.4-10.2 odzz=372) EGFR (BEAKER) (test 7 mL/min/1.73 sq m ESTIMATED GFR IS NOT cgyh=0473) ACCURATE CREATININE CLEARANCE IN PREDICTING GLOMERULAR FILTRATION RATE. ESTIMATED GFR IS NOT APPLICABLE FOR DIALYSIS PATIENTS. [id number] 06:12:00 Test Item Value Reference Range Comments PHOSPHORUS (BEAKER) (test xbon=239) 5.6 mg/dL 2.3-4.7 [id number] 06:12:00 Test Item Value Reference Range Comments MAGNESIUM (BEAKER) (test oyld=504) 1.8 mg/dL 1.6-2.6 CBC W/PLT COUNT & AUTO [id number] 06:05:00 Test Item Value Reference Range Comments WHITE BLOOD CELL COUNT (BEAKER) (test jchr=220) 15.8 K/ L 3.5-10.5 RED BLOOD CELL COUNT (BEAKER) (test ciky=808) 2.95 M/ L 3.93-5.22 HEMOGLOBIN (BEAKER) (test glfa=704) 8.9 GM/DL 11.2-15.7 HEMATOCRIT (BEAKER) (test gsdv=067) 28.1 % 34.1-44.9 MEAN CORPUSCULAR VOLUME (BEAKER) (test xyks=172) 95.3 fL 79.4-94.8 MEAN CORPUSCULAR HEMOGLOBIN (BEAKER) (test 30.2 pg 25.6-32.2 anxp=933) MEAN CORPUSCULAR HEMOGLOBIN CONC (BEAKER) (test 31.7 GM/DL 32.2-35.5 vqgd=622) RED CELL DISTRIBUTION WIDTH (BEAKER) (test 12.8 % 11.7-14.4 ryfu=323) PLATELET COUNT (BEAKER) (test nqwu=510) 378 K/CU MM 150-450 MEAN PLATELET VOLUME (BEAKER) (test kyuk=571) 9.4 fL 9.4-12.3 NUCLEATED RED BLOOD CELLS (BEAKER) (test 1 /100 WBC 0-0 oncv=378) NEUTROPHILS RELATIVE PERCENT (BEAKER) (test 86 % bkdy=109) LYMPHOCYTES RELATIVE PERCENT (BEAKER) (test 8 % lmrj=920) MONOCYTES RELATIVE PERCENT (BEAKER) (test 4 % refi=180) EOSINOPHILS RELATIVE PERCENT (BEAKER) (test 0 % yorb=295) BASOPHILS RELATIVE PERCENT (BEAKER) (test 0 % hvdq=813) NEUTROPHILS ABSOLUTE COUNT (BEAKER) (test 13.60 K/ L 1.56-6.13 fvmr=261) LYMPHOCYTES ABSOLUTE COUNT (BEAKER) (test 1.32 K/ L 1.18-3.74 glwl=242) MONOCYTES ABSOLUTE COUNT (BEAKER) (test 0.69 K/ L 0.24-0.36 vdeb=298) EOSINOPHILS ABSOLUTE COUNT (BEAKER) (test 0.05 K/ L 0.04-0.36 qvuj=270) BASOPHILS ABSOLUTE COUNT (BEAKER) (test 0.04 K/ L 0.01-0.08 ubuf=767) IMMATURE GRANULOCYTES-RELATIVE PERCENT (BEAKER) 1 % 0-1 (test cwbr=0955) LACTIC ACID, VENOUS, WHOLE [id number] 05:51:00 Test Item Value Reference Range Comments LACTATE BLOOD VENOUS (2) (BEAKER) (test 4.7 mmol/L 0.5-2.2 fhty=8489) Effective 07/04/2015: Units/Reference Range ChangeNew: 0.5-2.2 mmol/L Previous: 5 -20 mg/dLPOCT-GLUCOSE [id number] 21:20:00 Test Item Value Reference Range Comments POC-GLUCOSE METER (BEAKER) 216 mg/dL 70-110 TESTED AT [facility] [address] (test hopu=9557) [facility] [address] TISSUE [id number] 20:07:00Surgical Pathology Report Case: [id number] Authorizing Provider: Bong Hatch MD Collected: 09/21/2017 1400 Ordering Location: [address] Received: 09/22/2017 0757 Service Pathologist: Howard Reese MD Specimen: Biopsy, Gastric, antrum and body A. STOMACH, ANTRUM AND BODY, BIOPSIES: - FOCALLY ACTIVE CHRONIC GASTRITIS AND REACTIVE CHANGES - NEGATIVE FOR HELICOBACTER PYLORI ORGANISMS BY WARTHIN STARRY STAIN - NEGATIVE FOR INTESTINAL METAPLASIA, DYSPLASIA, MALIGNANCY Signing Pathologist Direct Phone Line: [phone] signed by Howard Reese MD on at 8:07 [id number] bleed Gastric antrum and body biopsyReceived in formalin labeled "biopsy, gastric", description "antrum and body" are four fragments measuring 1.2 x 0.6 x 0.1 cm in aggregate. The specimen is entirely submitted in A1. DB/ewPerformed.POCT-GLUCOSE [id number] 17:39:00 Test Item Value Reference Range Comments POC-GLUCOSE METER (BEAKER) 84 mg/dL 70-110 TESTED AT [address] (test bbri=2043) [place] [id number] POCT-GLUCOSE [id number] 12:04:00 Test Item Value Reference Range Comments POC-GLUCOSE METER (BEAKER) 160 mg/dL 70-110 TESTED AT [address] (test gtvl=2098) [place] [id number] POCT-GLUCOSE [id number] 08:24:00 Test Item Value Reference Range Comments POC-GLUCOSE METER (BEAKER) 152 mg/dL 70-110 TESTED AT [address] (test gvfa=1134) [place] [id number] LACTIC ACID, VENOUS, WHOLE [id number] 06:57:00 Test Item Value Reference Range Comments LACTATE BLOOD VENOUS (2) 3.0 mmol/L 0.5-2.2 Specimen slightly hemolyzed (BEAKER) (test arxv=8523) Effective 07/04/2015: Units/Reference Range ChangeNew: 0.5-2.2 mmol/L Previous: 5 -20 mg/dLBASIC METABOLIC [id number] 02:18:00 Test Item Value Reference Range Comments SODIUM (BEAKER) (test 127 meq/L 136-145 gwis=868) POTASSIUM (BEAKER) (test 3.3 meq/L 3.5-5.1 ifgu=694) CHLORIDE (BEAKER) (test 89 meq/L 98-107 ckdt=563) CO2 (BEAKER) (test 23 meq/L 22-29 ydaw=074) BLOOD UREA NITROGEN 37 mg/dL 7-21 (BEAKER) (test atiy=542) CREATININE (BEAKER) (test 6.31 mg/dL 0.57-1.25 yddy=331) GLUCOSE RANDOM (BEAKER) 202 mg/dL 70-105 (test huvc=934) CALCIUM (BEAKER) (test 8.9 mg/dL 8.4-10.2 krzs=089) EGFR (BEAKER) (test 6 mL/min/1.73 sq m ESTIMATED GFR IS NOT mbtx=7184) ACCURATE CREATININE CLEARANCE IN PREDICTING GLOMERULAR FILTRATION RATE. ESTIMATED GFR IS NOT APPLICABLE FOR DIALYSIS PATIENTS. [id number] 02:10:00 Test Item Value Reference Range Comments PHOSPHORUS (BEAKER) (test stfr=197) 5.5 mg/dL 2.3-4.7 [id number] 02:10:00 Test Item Value Reference Range Comments MAGNESIUM (BEAKER) (test jesq=695) 1.8 mg/dL 1.6-2.6 CBC W/PLT COUNT & AUTO [id number] 01:46:00 Test Item Value Reference Range Comments WHITE BLOOD CELL COUNT (BEAKER) (test mmxk=384) 17.5 K/ L 3.5-10.5 RED BLOOD CELL COUNT (BEAKER) (test ofvq=101) 3.01 M/ L 3.93-5.22 HEMOGLOBIN (BEAKER) (test shbg=371) 9.2 GM/DL 11.2-15.7 HEMATOCRIT (BEAKER) (test sblr=573) 29.5 % 34.1-44.9 MEAN CORPUSCULAR VOLUME (BEAKER) (test wdsw=263) 98.0 fL 79.4-94.8 MEAN CORPUSCULAR HEMOGLOBIN (BEAKER) (test 30.6 pg 25.6-32.2 jxtj=325) MEAN CORPUSCULAR HEMOGLOBIN CONC (BEAKER) (test 31.2 GM/DL 32.2-35.5 hykv=295) RED CELL DISTRIBUTION WIDTH (BEAKER) (test 13.1 % 11.7-14.4 wbdm=332) PLATELET COUNT (BEAKER) (test klbw=262) 420 K/CU MM 150-450 MEAN PLATELET VOLUME (BEAKER) (test lvwr=397) 9.0 fL 9.4-12.3 NUCLEATED RED BLOOD CELLS (BEAKER) (test 0 /100 WBC 0-0 kats=507) NEUTROPHILS RELATIVE PERCENT (BEAKER) (test 80 % ekxj=185) LYMPHOCYTES RELATIVE PERCENT (BEAKER) (test 11 % pevw=840) MONOCYTES RELATIVE PERCENT (BEAKER) (test 6 % pjzr=484) EOSINOPHILS RELATIVE PERCENT (BEAKER) (test 2 % dplm=204) BASOPHILS RELATIVE PERCENT (BEAKER) (test 0 % epql=440) NEUTROPHILS ABSOLUTE COUNT (BEAKER) (test 13.91 K/ L 1.56-6.13 qagc=700) LYMPHOCYTES ABSOLUTE COUNT (BEAKER) (test 1.97 K/ L 1.18-3.74 sbje=917) MONOCYTES ABSOLUTE COUNT (BEAKER) (test 1.02 K/ L 0.24-0.36 xvjx=366) EOSINOPHILS ABSOLUTE COUNT (BEAKER) (test 0.32 K/ L 0.04-0.36 grxh=401) BASOPHILS ABSOLUTE COUNT (BEAKER) (test 0.05 K/ L 0.01-0.08 fldt=512) IMMATURE GRANULOCYTES-RELATIVE PERCENT (BEAKER) 1 % 0-1 (test poqy=0919) POCT-GLUCOSE [id number] 21:40:00 Test Item Value Reference Range Comments POC-GLUCOSE METER (BEAKER) 151 mg/dL 70-110 TESTED AT [address] (test iwyd=3704) [facility] [id number] POCT-GLUCOSE [id number] 17:57:00 Test Item Value Reference Range Comments POC-GLUCOSE METER (BEAKER) 84 mg/dL 70-110 TESTED AT [address] (test onpa=1598) [facility] [id number] POCT-GLUCOSE [id number] 07:58:00 Test Item Value Reference Range Comments POC-GLUCOSE METER (BEAKER) 185 mg/dL 70-110 TESTED AT [address] (test yzef=2104) [facility] [address] [id number] 07:18:00 Test Item Value Reference Range Comments PHOSPHORUS (BEAKER) (test luua=776) 5.4 mg/dL 2.3-4.7 [id number] 07:18:00 Test Item Value Reference Range Comments MAGNESIUM (BEAKER) (test utud=853) 2.1 mg/dL 1.6-2.6 BASIC METABOLIC [id number] 07:18:00 Test Item Value Reference Range Comments SODIUM (BEAKER) (test 129 meq/L 136-145 xvir=590) POTASSIUM (BEAKER) (test 3.6 meq/L 3.5-5.1 wllc=700) CHLORIDE (BEAKER) (test 88 meq/L 98-107 wgig=952) CO2 (BEAKER) (test 21 meq/L 22-29 hpqp=394) BLOOD UREA NITROGEN 34 mg/dL 7-21 (BEAKER) (test ihjr=806) CREATININE (BEAKER) (test 6.48 mg/dL 0.57-1.25 tcml=556) GLUCOSE RANDOM (BEAKER) 228 mg/dL 70-105 (test uczb=604) CALCIUM (BEAKER) (test 9.4 mg/dL 8.4-10.2 abnu=037) EGFR (BEAKER) (test 6 mL/min/1.73 sq m ESTIMATED GFR IS NOT kkdd=8512) ACCURATE CREATININE CLEARANCE IN PREDICTING GLOMERULAR FILTRATION RATE. ESTIMATED GFR IS NOT APPLICABLE FOR DIALYSIS PATIENTS. CBC W/PLT COUNT & AUTO [id number] 06:31:00 Test Item Value Reference Range Comments WHITE BLOOD CELL COUNT (BEAKER) (test mjbo=636) 15.1 K/ L 3.5-10.5 RED BLOOD CELL COUNT (BEAKER) (test ojeg=572) 3.35 M/ L 3.93-5.22 HEMOGLOBIN (BEAKER) (test viub=208) 9.9 GM/DL 11.2-15.7 HEMATOCRIT (BEAKER) (test mhmg=117) 32.4 % 34.1-44.9 MEAN CORPUSCULAR VOLUME (BEAKER) (test pdxw=229) 96.7 fL 79.4-94.8 MEAN CORPUSCULAR HEMOGLOBIN (BEAKER) (test 29.6 pg 25.6-32.2 mlhg=929) MEAN CORPUSCULAR HEMOGLOBIN CONC (BEAKER) (test 30.6 GM/DL 32.2-35.5 pzwp=380) RED CELL DISTRIBUTION WIDTH (BEAKER) (test 13.0 % 11.7-14.4 qbfr=259) PLATELET COUNT (BEAKER) (test ombx=068) 488 K/CU MM 150-450 MEAN PLATELET VOLUME (BEAKER) (test lqwo=600) 9.7 fL 9.4-12.3 NUCLEATED RED BLOOD CELLS (BEAKER) (test 0 /100 WBC 0-0 nfvt=659) NEUTROPHILS RELATIVE PERCENT (BEAKER) (test 81 % ecin=339) LYMPHOCYTES RELATIVE PERCENT (BEAKER) (test 10 % phrq=163) MONOCYTES RELATIVE PERCENT (BEAKER) (test 6 % svbw=999) EOSINOPHILS RELATIVE PERCENT (BEAKER) (test 0 % jxkg=115) BASOPHILS RELATIVE PERCENT (BEAKER) (test 1 % oyyd=228) NEUTROPHILS ABSOLUTE COUNT (BEAKER) (test 12.26 K/ L 1.56-6.13 laxk=985) LYMPHOCYTES ABSOLUTE COUNT (BEAKER) (test 1.55 K/ L 1.18-3.74 gfqz=213) MONOCYTES ABSOLUTE COUNT (BEAKER) (test 0.88 K/ L 0.24-0.36 lfjp=862) EOSINOPHILS ABSOLUTE COUNT (BEAKER) (test 0.04 K/ L 0.04-0.36 vywu=457) BASOPHILS ABSOLUTE COUNT (BEAKER) (test 0.09 K/ L 0.01-0.08 zmdd=246) IMMATURE GRANULOCYTES-RELATIVE PERCENT (BEAKER) 2 % 0-1 (test powy=1800) POCT-GLUCOSE [id number] 20:29:00 Test Item Value Reference Range Comments POC-GLUCOSE METER (BEAKER) 204 mg/dL 70-110 TESTED AT [address] (test bhxp=7334) [facility] [address] POCT-GLUCOSE [id number] 17:30:00 Test Item Value Reference Range Comments POC-GLUCOSE METER (BEAKER) 190 mg/dL 70-110 TESTED AT [address] (test dixu=3910) [facility] [address] POCT-GLUCOSE [id number] 11:54:00 Test Item Value Reference Range Comments POC-GLUCOSE METER (BEAKER) 229 mg/dL 70-110 TESTED AT [facility] [address] (test ocbg=6388) [facility] [address] POCT-GLUCOSE [id number] 08:35:00 Test Item Value Reference Range Comments POC-GLUCOSE METER (BEAKER) 244 mg/dL 70-110 TESTED AT [facility] [address] (test auxh=1096) [facility] [address] BASIC METABOLIC [id number] 02:06:00 Test Item Value Reference Range Comments SODIUM (BEAKER) (test 130 meq/L 136-145 dbuy=900) POTASSIUM (BEAKER) (test 3.9 meq/L 3.5-5.1 xwfy=349) CHLORIDE (BEAKER) (test 91 meq/L 98-107 bmjp=683) CO2 (BEAKER) (test 20 meq/L 22-29 gxaz=818) BLOOD UREA NITROGEN 36 mg/dL 7-21 (BEAKER) (test emqv=589) CREATININE (BEAKER) (test 7.38 mg/dL 0.57-1.25 tgsy=555) GLUCOSE RANDOM (BEAKER) 145 mg/dL 70-105 (test jqxj=395) CALCIUM (BEAKER) (test 9.3 mg/dL 8.4-10.2 otqr=124) EGFR (BEAKER) (test 5 mL/min/1.73 sq m ESTIMATED GFR IS NOT xjgu=3788) ACCURATE CREATININE CLEARANCE IN PREDICTING GLOMERULAR FILTRATION RATE. ESTIMATED GFR IS NOT APPLICABLE FOR DIALYSIS PATIENTS. TROPONIN [id number] 02:06:00 Test Item Value Reference Range Comments TROPONIN I (BEAKER) (test mtwt=696) 0.02 ng/mL 0.00-0.03 Troponin I (TnI) levels [...] failure, acidosis, acute neurological disease, and persistent tachyarrhythmia.[id number] 01:58:00 Test Item Value Reference Range Comments PHOSPHORUS (BEAKER) (test simj=843) 5.5 mg/dL 2.3-4.7 [id number] 01:58:00 Test Item Value Reference Range Comments MAGNESIUM (BEAKER) (test defd=389) 2.1 mg/dL 1.6-2.6 CBC W/PLT COUNT & AUTO [id number] 01:48:00 Test Item Value Reference Range Comments WHITE BLOOD CELL COUNT (BEAKER) (test gmxq=807) 18.9 K/ L 3.5-10.5 RED BLOOD CELL COUNT (BEAKER) (test rdwo=082) 3.02 M/ L 3.93-5.22 HEMOGLOBIN (BEAKER) (test phnr=500) 9.1 GM/DL 11.2-15.7 HEMATOCRIT (BEAKER) (test fwby=514) 29.5 % 34.1-44.9 MEAN CORPUSCULAR VOLUME (BEAKER) (test kbsd=753) 97.7 fL 79.4-94.8 MEAN CORPUSCULAR HEMOGLOBIN (BEAKER) (test 30.1 pg 25.6-32.2 ddtr=892) MEAN CORPUSCULAR HEMOGLOBIN CONC (BEAKER) (test 30.8 GM/DL 32.2-35.5 cynu=919) RED CELL DISTRIBUTION WIDTH (BEAKER) (test 12.9 % 11.7-14.4 ohbr=017) PLATELET COUNT (BEAKER) (test iuwv=658) 519 K/CU MM 150-450 MEAN PLATELET VOLUME (BEAKER) (test bhbq=023) 9.6 fL 9.4-12.3 NUCLEATED RED BLOOD CELLS (BEAKER) (test 0 /100 WBC 0-0 djot=640) NEUTROPHILS RELATIVE PERCENT (BEAKER) (test 79 % movn=064) LYMPHOCYTES RELATIVE PERCENT (BEAKER) (test 11 % munc=756) MONOCYTES RELATIVE PERCENT (BEAKER) (test 6 % rnyj=452) EOSINOPHILS RELATIVE PERCENT (BEAKER) (test 1 % mdrs=528) BASOPHILS RELATIVE PERCENT (BEAKER) (test 0 % xgcu=093) NEUTROPHILS ABSOLUTE COUNT (BEAKER) (test 14.96 K/ L 1.56-6.13 pivo=059) LYMPHOCYTES ABSOLUTE COUNT (BEAKER) (test 2.16 K/ L 1.18-3.74 vjix=966) MONOCYTES ABSOLUTE COUNT (BEAKER) (test 1.22 K/ L 0.24-0.36 xtem=207) EOSINOPHILS ABSOLUTE COUNT (BEAKER) (test 0.22 K/ L 0.04-0.36 ogfk=217) BASOPHILS ABSOLUTE COUNT (BEAKER) (test 0.08 K/ L 0.01-0.08 qksm=811) IMMATURE GRANULOCYTES-RELATIVE PERCENT (BEAKER) 2 % 0-1 (test tvkk=7599) POCT-GLUCOSE [id number] 21:15:00 Test Item Value Reference Range Comments POC-GLUCOSE METER (BEAKER) 171 mg/dL 70-110 TESTED AT [address] (test suew=8114) [place] [address] POCT-GLUCOSE [id number] 17:51:00 Test Item Value Reference Range Comments POC-GLUCOSE METER (BEAKER) 87 mg/dL 70-110 TESTED AT [address] (test spnc=8633) [place] [address] POCT-GLUCOSE [id number] 17:22:00 Test Item Value Reference Range Comments POC-GLUCOSE METER (BEAKER) 58 mg/dL 70-110 Notified GERARDO MARION/TESTED AT [facility] (test tzzy=0258) [address] [place], [place] [id number] POCT-GLUCOSE [id number] 11:11:00 Test Item Value Reference Range Comments POC-GLUCOSE METER (BEAKER) 160 mg/dL 70-110 TESTED AT [address] (test hwqt=0363) [place] [address] POCT-GLUCOSE [id number] 10:36:00 Test Item Value Reference Range Comments POC-GLUCOSE METER (BEAKER) 159 mg/dL 70-110 TESTED AT [address] (test pzsb=2003) [place] [address] BASIC METABOLIC [id number] 09:19:00 Test Item Value Reference Range Comments SODIUM (BEAKER) (test 132 meq/L 136-145 vifd=579) POTASSIUM (BEAKER) (test 3.6 meq/L 3.5-5.1 tmnm=833) CHLORIDE (BEAKER) (test 91 meq/L 98-107 hymp=951) CO2 (BEAKER) (test 24 meq/L 22-29 vjvz=311) BLOOD UREA NITROGEN 35 mg/dL 7-21 (BEAKER) (test ldqp=117) CREATININE (BEAKER) (test 7.50 mg/dL 0.57-1.25 kwvm=267) GLUCOSE RANDOM (BEAKER) 193 mg/dL 70-105 (test ihwz=706) CALCIUM (BEAKER) (test 10.1 mg/dL 8.4-10.2 mruq=276) EGFR (BEAKER) (test 5 mL/min/1.73 sq m ESTIMATED GFR IS NOT hgim=8080) ACCURATE CREATININE CLEARANCE IN PREDICTING GLOMERULAR FILTRATION RATE. ESTIMATED GFR IS NOT APPLICABLE FOR DIALYSIS PATIENTS. [id number] 09:17:00 Test Item Value Reference Range Comments PHOSPHORUS (BEAKER) (test whtq=380) 4.7 mg/dL 2.3-4.7 [id number] 09:17:00 Test Item Value Reference Range Comments MAGNESIUM (BEAKER) (test nydx=182) 2.3 mg/dL 1.6-2.6 CBC W/PLT COUNT & AUTO [id number] 07:50:00 Test Item Value Reference Range Comments WHITE BLOOD CELL COUNT (BEAKER) (test lzqd=343) 17.4 K/ L 3.5-10.5 RED BLOOD CELL COUNT (BEAKER) (test dvzx=608) 3.07 M/ L 3.93-5.22 HEMOGLOBIN (BEAKER) (test lysd=074) 9.5 GM/DL 11.2-15.7 HEMATOCRIT (BEAKER) (test mbxr=347) 30.1 % 34.1-44.9 MEAN CORPUSCULAR VOLUME (BEAKER) (test vvji=556) 98.0 fL 79.4-94.8 MEAN CORPUSCULAR HEMOGLOBIN (BEAKER) (test 30.9 pg 25.6-32.2 jbct=141) MEAN CORPUSCULAR HEMOGLOBIN CONC (BEAKER) (test 31.6 GM/DL 32.2-35.5 hpqu=639) RED CELL DISTRIBUTION WIDTH (BEAKER) (test 12.9 % 11.7-14.4 sdrp=205) PLATELET COUNT (BEAKER) (test fqiu=285) 490 K/CU MM 150-450 MEAN PLATELET VOLUME (BEAKER) (test vtrt=124) 10.0 fL 9.4-12.3 NUCLEATED RED BLOOD CELLS (BEAKER) (test 0 /100 WBC 0-0 aylk=442) NEUTROPHILS RELATIVE PERCENT (BEAKER) (test 78 % fhrd=382) LYMPHOCYTES RELATIVE PERCENT (BEAKER) (test 12 % ogsg=125) MONOCYTES RELATIVE PERCENT (BEAKER) (test 7 % mlzl=849) EOSINOPHILS RELATIVE PERCENT (BEAKER) (test 0 % ctbb=810) BASOPHILS RELATIVE PERCENT (BEAKER) (test 0 % rpud=916) NEUTROPHILS ABSOLUTE COUNT (BEAKER) (test 13.61 K/ L 1.56-6.13 ckti=247) LYMPHOCYTES ABSOLUTE COUNT (BEAKER) (test 2.11 K/ L 1.18-3.74 eokg=603) MONOCYTES ABSOLUTE COUNT (BEAKER) (test 1.23 K/ L 0.24-0.36 srjv=740) EOSINOPHILS ABSOLUTE COUNT (BEAKER) (test 0.07 K/ L 0.04-0.36 yfrm=567) BASOPHILS ABSOLUTE COUNT (BEAKER) (test 0.06 K/ L 0.01-0.08 jlpd=512) IMMATURE GRANULOCYTES-RELATIVE PERCENT (BEAKER) 2 % 0-1 (test chwe=9803) POCT-GLUCOSE [id number] 20:30:00 Test Item Value Reference Range Comments POC-GLUCOSE METER (BEAKER) 162 mg/dL 70-110 TESTED AT [address] (test lbab=4458) [facility] [address] POCT-GLUCOSE [id number] 19:24:00 Test Item Value Reference Range Comments POC-GLUCOSE METER (BEAKER) 66 mg/dL 70-110 TESTED AT [address] (test crua=2944) [facility] [address] BLOOD [id number] 18:31:00 Test Item Value Reference Range Comments CULTURE (BEAKER) (test vbog=2984) No growth in 5 days BLOOD [id number] 18:31:00 Test Item Value Reference Range Comments CULTURE (BEAKER) (test hseh=7588) No growth in 5 days POCT-GLUCOSE [id number] 17:33:00 Test Item Value Reference Range Comments POC-GLUCOSE METER (BEAKER) 63 mg/dL 70-110 Notified GERARDO MARION/TESTED AT [facility] (test pudl=9216) [facility] [address] [facility] [address] POCT-GLUCOSE [id number] 17:17:00 Test Item Value Reference Range Comments POC-GLUCOSE METER (BEAKER) 46 mg/dL 70-110 TESTED AT [facility] [address] (test taph=9431) [facility] [address] CT, CHEST, WITH [id number] 17:00:00FINAL REPORT CT of the chest, abdomen [...] or hematoma. Right inguinal lymphadenopathy. Signed: Jennifer Bradfordeport Verified Date/Time: 09/18/2017 17:00 :33 Reading Location: [place] [address]Y CT Body Reading Room CT, [id number] 17:00: 00FINAL REPORT CT of the chest, [...] Bradford Verified Date/Time: 09/18/2017 17:00:33 Reading Location: [address] Body Reading Room CT, BRAIN, [id number] 15:53:00FINAL REPORT CT Head with and without [...] infarct, hemorrhage, or hydrocephalus Signed: Rosi Valles MDReport Verified Date/Time: 09/18/2017 15:53:58 ReadingLocation: [facility] Reading Room POCT-GLUCOSE [id number] 11:41:00 Test Item Value Reference Range Comments POC-GLUCOSE METER (BEAKER) 139 mg/dL 70-110 TESTED AT [address] (test uzym=7748) [place] [address] POCT-GLUCOSE [id number] 08:15:00 Test Item Value Reference Range Comments POC-GLUCOSE METER (BEAKER) 284 mg/dL 70-110 TESTED AT [address] (test vlqt=1255) [place] [address] BASIC METABOLIC [id number] 07:04:00 Test Item Value Reference Range Comments SODIUM (BEAKER) (test 130 meq/L 136-145 irkf=837) POTASSIUM (BEAKER) (test 3.7 meq/L 3.5-5.1 ebmt=756) CHLORIDE (BEAKER) (test 92 meq/L 98-107 qqbp=955) CO2 (BEAKER) (test 22 meq/L 22-29 gtbt=810) BLOOD UREA NITROGEN 37 mg/dL 7-21 (BEAKER) (test ubzn=990) CREATININE (BEAKER) (test 7.56 mg/dL 0.57-1.25 klmt=701) GLUCOSE RANDOM (BEAKER) 237 mg/dL 70-105 (test wmyi=734) CALCIUM (BEAKER) (test 9.5 mg/dL 8.4-10.2 hbkq=002) EGFR (BEAKER) (test 5 mL/min/1.73 sq m ESTIMATED GFR IS NOT vfcy=0302) ACCURATE CREATININE CLEARANCE IN PREDICTING GLOMERULAR FILTRATION RATE. ESTIMATED GFR IS NOT APPLICABLE FOR DIALYSIS PATIENTS. [id number] 07:02:00 Test Item Value Reference Range Comments PHOSPHORUS (BEAKER) (test kykr=218) 4.4 mg/dL 2.3-4.7 [id number] 07:02:00 Test Item Value Reference Range Comments MAGNESIUM (BEAKER) (test kmaz=506) 2.1 mg/dL 1.6-2.6 CBC W/PLT COUNT & AUTO [id number] 06:32:00 Test Item Value Reference Range Comments WHITE BLOOD CELL COUNT (BEAKER) (test rolp=886) 16.0 K/ L 3.5-10.5 RED BLOOD CELL COUNT (BEAKER) (test rmuq=780) 3.07 M/ L 3.93-5.22 HEMOGLOBIN (BEAKER) (test qmwa=877) 8.9 GM/DL 11.2-15.7 HEMATOCRIT (BEAKER) (test nfaj=169) 30.2 % 34.1-44.9 MEAN CORPUSCULAR VOLUME (BEAKER) (test mkiw=613) 98.4 fL 79.4-94.8 MEAN CORPUSCULAR HEMOGLOBIN (BEAKER) (test 29.0 pg 25.6-32.2 xtba=617) MEAN CORPUSCULAR HEMOGLOBIN CONC (BEAKER) (test 29.5 GM/DL 32.2-35.5 tpxb=725) RED CELL DISTRIBUTION WIDTH (BEAKER) (test 12.6 % 11.7-14.4 ovig=851) PLATELET COUNT (BEAKER) (test abih=104) 499 K/CU MM 150-450 MEAN PLATELET VOLUME (BEAKER) (test psqr=824) 9.7 fL 9.4-12.3 NUCLEATED RED BLOOD CELLS (BEAKER) (test 0 /100 WBC 0-0 osfv=760) NEUTROPHILS RELATIVE PERCENT (BEAKER) (test 74 % pslk=178) LYMPHOCYTES RELATIVE PERCENT (BEAKER) (test 12 % rzmz=786) MONOCYTES RELATIVE PERCENT (BEAKER) (test 8 % zohb=929) EOSINOPHILS RELATIVE PERCENT (BEAKER) (test 2 % imok=196) BASOPHILS RELATIVE PERCENT (BEAKER) (test 1 % gjoc=041) NEUTROPHILS ABSOLUTE COUNT (BEAKER) (test 11.83 K/ L 1.56-6.13 udwl=711) LYMPHOCYTES ABSOLUTE COUNT (BEAKER) (test 1.91 K/ L 1.18-3.74 pmbj=164) MONOCYTES ABSOLUTE COUNT (BEAKER) (test 1.28 K/ L 0.24-0.36 kswl=269) EOSINOPHILS ABSOLUTE COUNT (BEAKER) (test 0.26 K/ L 0.04-0.36 dvyj=168) BASOPHILS ABSOLUTE COUNT (BEAKER) (test 0.10 K/ L 0.01-0.08 cxjl=304) IMMATURE GRANULOCYTES-RELATIVE PERCENT (BEAKER) 4 % 0-1 (test jqcf=6767) POCT-GLUCOSE [id number] 23:04:00 Test Item Value Reference Range Comments POC-GLUCOSE METER (BEAKER) 183 mg/dL 70-110 TESTED AT [address] (test azju=7980) [place] [address] POCT-GLUCOSE [id number] 17:27:00 Test Item Value Reference Range Comments POC-GLUCOSE METER (BEAKER) 189 mg/dL 70-110 TESTED AT [address] (test opno=2446) [place] [address] POCT-GLUCOSE [id number] 15:27:00 Test Item Value Reference Range Comments POC-GLUCOSE METER (BEAKER) 273 mg/dL 70-110 TESTED AT [address] (test bwbd=3071) [place] [address] POCT-GLUCOSE [id number] 12:53:00 Test Item Value Reference Range Comments POC-GLUCOSE METER (BEAKER) 226 mg/dL 70-110 TESTED AT [address] (test kqmx=8204) [place] [address] CBC W/PLT COUNT & AUTO [id number] 09:02:00 Test Item Value Reference Range Comments WHITE BLOOD CELL COUNT (BEAKER) (test dxej=765) 19.1 K/ L 3.5-10.5 RED BLOOD CELL COUNT (BEAKER) (test phxp=697) 2.99 M/ L 3.93-5.22 HEMOGLOBIN (BEAKER) (test ppbd=024) 8.9 GM/DL 11.2-15.7 HEMATOCRIT (BEAKER) (test tohq=406) 29.6 % 34.1-44.9 MEAN CORPUSCULAR VOLUME (BEAKER) (test ckmg=268) 99.0 fL 79.4-94.8 MEAN CORPUSCULAR HEMOGLOBIN (BEAKER) (test 29.8 pg 25.6-32.2 owhd=741) MEAN CORPUSCULAR HEMOGLOBIN CONC (BEAKER) (test 30.1 GM/DL 32.2-35.5 ieui=078) RED CELL DISTRIBUTION WIDTH (BEAKER) (test 12.7 % 11.7-14.4 lxwi=082) PLATELET COUNT (BEAKER) (test vmnm=074) 464 K/CU MM 150-450 MEAN PLATELET VOLUME (BEAKER) (test vzia=737) 10.3 fL 9.4-12.3 NUCLEATED RED BLOOD CELLS (BEAKER) (test 0 /100 WBC 0-0 wjpq=447) (CELLAVISION MANUAL DIFF)2017-09-17 09:02:00 Test Item Value Reference Range Comments NEUTROPHILS - REL (CELLAVISION)(BEAKER) (test 78 % dcuw=1130) LYMPHOCYTES - REL (CELLAVISION)(BEAKER) (test 9 % zqjx=7413) MONOCYTES - REL (CELLAVISION)(BEAKER) (test 8 % wyia=7420) EOSINOPHILS - REL (CELLAVISION)(BEAKER) (test 3 % qebg=6441) BANDS - REL (CELLAVISION)(BEAKER) (test 1 % 0-10 ehul=8663) ATYPICAL LYMPHOCYTES - REL (CELLAVISION)(BEAKER) 1 % 0-0 (test odyn=9419) NEUTROPHILS - ABS (CELLAVISION)(BEAKER) (test 14.90 K/ul 1.56-6.13 zjrn=7592) LYMPHOCYTES - ABS (CELLAVISION)(BEAKER) (test 1.72 K/ul 1.18-3.74 tqmh=3172) MONOCYTES - ABS (CELLAVISION)(BEAKER) (test 1.53 K/uL 0.24-0.36 vmix=3710) EOSINOPHILS - ABS (CELLAVISION)(BEAKER) (test 0.57 K/uL 0.04-0.36 vcle=4474) BANDS - ABS (CELLAVISION)(BEAKER) (test 0.19 K/uL 0.00-0.80 vkil=0011) ATYPICAL LYMPHOCYTES - ABS (CELLAVISION)(BEAKER) 0.19 K/uL 0.00-0.00 (test nyza=6127) TOTAL COUNTED (BEAKER) (test voor=9343) 100 MANUAL NRBC PER 100 CELLS (BEAKER) (test 3 /100 WBC 0-0 ojcm=6007) WBC MORPHOLOGY (BEAKER) (test uqid=435) Normal PLT MORPHOLOGY (BEAKER) (test uusw=474) Normal ANISOCYTOSIS (BEAKER) (test kzae=358) 1+ few ARTIFACT (CELLAVISION)(BEAKER) (test nmtw=9800) Present PLATELET CONCENTRATION (CELLAVISION)(BEAKER) Increased (test nhmc=1181) Received comment: User comments: Slide comments:BASIC METABOLIC [id number] 07:35:00 Test Item Value Reference Range Comments SODIUM (BEAKER) (test 135 meq/L 136-145 vhmo=400) POTASSIUM (BEAKER) (test 4.0 meq/L 3.5-5.1 Specimen slightly ksjf=821) hemolyzed CHLORIDE (BEAKER) (test 96 meq/L 98-107 gatm=159) CO2 (BEAKER) (test 22 meq/L 22-29 fzso=134) BLOOD UREA NITROGEN 37 mg/dL 7-21 (BEAKER) (test wvdr=122) CREATININE (BEAKER) (test 8.06 mg/dL 0.57-1.25 Specimen slightly bnld=123) hemolyzed GLUCOSE RANDOM (BEAKER) 165 mg/dL 70-105 (test mmtp=868) CALCIUM (BEAKER) (test 9.8 mg/dL 8.4-10.2 yacz=183) EGFR (BEAKER) (test 5 mL/min/1.73 sq m ESTIMATED GFR IS NOT qewl=0090) ACCURATE CREATININE CLEARANCE IN PREDICTING GLOMERULAR FILTRATION RATE. ESTIMATED GFR IS NOT APPLICABLE FOR DIALYSIS PATIENTS. [id number] 07:34:00 Test Item Value Reference Range Comments MAGNESIUM (BEAKER) (test 2.3 mg/dL 1.6-2.6 Specimen slightly hemolyzed zosn=220) [id number] 07:34:00 Test Item Value Reference Range Comments PHOSPHORUS (BEAKER) (test 4.3 mg/dL 2.3-4.7 Specimen slightly hemolyzed vimy=292) POCT-GLUCOSE [id number] 22:10:00 Test Item Value Reference Range Comments POC-GLUCOSE METER (BEAKER) 100 mg/dL 70-110 TESTED AT [address] (test zkxh=8289) [place] [address] POCT-GLUCOSE [id number] 16:51:00 Test Item Value Reference Range Comments POC-GLUCOSE METER (BEAKER) 73 mg/dL 70-110 TESTED AT [address] (test ssfs=8097) [place] [address] POCT-GLUCOSE [id number] 13:11:00 Test Item Value Reference Range Comments POC-GLUCOSE METER (BEAKER) 109 mg/dL 70-110 TESTED AT [address] (test bdvz=3867) [place] [address] BODY FLUID CULTURE + GRAM [id number] 11:40:00 Test Item Value Reference Range Comments CULTURE (BEAKER) (test qzeo=2104) No growth GRAM STAIN RESULT (BEAKER) (test No White blood cells seen hqje=7039) GRAM STAIN RESULT (BEAKER) (test No organisms seen pqjp=80895) POCT-GLUCOSE [id number] 08:03:00 Test Item Value Reference Range Comments POC-GLUCOSE METER (BEAKER) 201 mg/dL 70-110 TESTED AT [address] (test skrt=5922) [place] [address] BASIC METABOLIC [id number] 06:12:00 Test Item Value Reference Range Comments SODIUM (BEAKER) (test 133 meq/L 136-145 sugu=452) POTASSIUM (BEAKER) (test 3.6 meq/L 3.5-5.1 xqfj=760) CHLORIDE (BEAKER) (test 95 meq/L 98-107 owog=901) CO2 (BEAKER) (test 22 meq/L 22-29 ubpl=805) BLOOD UREA NITROGEN 35 mg/dL 7-21 (BEAKER) (test afnc=259) CREATININE (BEAKER) (test 7.69 mg/dL 0.57-1.25 fbtv=050) GLUCOSE RANDOM (BEAKER) 246 mg/dL 70-105 (test rggx=779) CALCIUM (BEAKER) (test 9.7 mg/dL 8.4-10.2 kmhh=102) EGFR (BEAKER) (test 5 mL/min/1.73 sq m ESTIMATED GFR IS NOT fizk=6121) ACCURATE CREATININE CLEARANCE IN PREDICTING GLOMERULAR FILTRATION RATE. ESTIMATED GFR IS NOT APPLICABLE FOR DIALYSIS PATIENTS. [id number] 06:07:00 Test Item Value Reference Range Comments PHOSPHORUS (BEAKER) (test pwfu=010) 3.3 mg/dL 2.3-4.7 [id number] 06:07:00 Test Item Value Reference Range Comments MAGNESIUM (BEAKER) (test mahp=967) 1.9 mg/dL 1.6-2.6 VANCOMYCIN LEVEL, [id number] 05:53:00 Test Item Value Reference Range Comments VANCOMYCIN RANDOM (BEAKER) (test ygtv=251) 19.6 ug/mL Reference Range: No NormalsCBC W/PLT COUNT & AUTO [id number] 05: 28:00 Test Item Value Reference Range Comments WHITE BLOOD CELL COUNT (BEAKER) (test rspq=812) 18.0 K/ L 3.5-10.5 RED BLOOD CELL COUNT (BEAKER) (test vpoc=996) 2.97 M/ L 3.93-5.22 HEMOGLOBIN (BEAKER) (test zylv=053) 9.0 GM/DL 11.2-15.7 HEMATOCRIT (BEAKER) (test slrj=343) 30.3 % 34.1-44.9 MEAN CORPUSCULAR VOLUME (BEAKER) (test srga=289) 102.0 fL 79.4-94.8 MEAN CORPUSCULAR HEMOGLOBIN (BEAKER) (test 30.3 pg 25.6-32.2 amqm=264) MEAN CORPUSCULAR HEMOGLOBIN CONC (BEAKER) (test 29.7 GM/DL 32.2-35.5 ogxv=497) RED CELL DISTRIBUTION WIDTH (BEAKER) (test 12.7 % 11.7-14.4 xrjy=910) PLATELET COUNT (BEAKER) (test rxrv=230) 451 K/CU MM 150-450 MEAN PLATELET VOLUME (BEAKER) (test ffxe=967) 10.5 fL 9.4-12.3 NUCLEATED RED BLOOD CELLS (BEAKER) (test 0 /100 WBC 0-0 bdfm=939) NEUTROPHILS RELATIVE PERCENT (BEAKER) (test 75 % ttqd=379) LYMPHOCYTES RELATIVE PERCENT (BEAKER) (test 11 % gyxb=656) MONOCYTES RELATIVE PERCENT (BEAKER) (test 8 % ffyo=329) EOSINOPHILS RELATIVE PERCENT (BEAKER) (test 3 % cjvp=329) BASOPHILS RELATIVE PERCENT (BEAKER) (test 1 % rczc=312) NEUTROPHILS ABSOLUTE COUNT (BEAKER) (test 13.48 K/ L 1.56-6.13 qoor=360) LYMPHOCYTES ABSOLUTE COUNT (BEAKER) (test 2.02 K/ L 1.18-3.74 fnot=324) MONOCYTES ABSOLUTE COUNT (BEAKER) (test 1.44 K/ L 0.24-0.36 quvg=548) EOSINOPHILS ABSOLUTE COUNT (BEAKER) (test 0.47 K/ L 0.04-0.36 wnlx=283) BASOPHILS ABSOLUTE COUNT (BEAKER) (test 0.12 K/ L 0.01-0.08 ahfi=710) IMMATURE GRANULOCYTES-RELATIVE PERCENT (BEAKER) 2 % 0-1 (test hktt=8101) POCT-GLUCOSE [id number] 20:29:00 Test Item Value Reference Range Comments POC-GLUCOSE METER (BEAKER) 108 mg/dL 70-110 TESTED AT [address] (test voim=8830) [place] [id number] POCT-GLUCOSE [id number] 17:21:00 Test Item Value Reference Range Comments POC-GLUCOSE METER (BEAKER) 165 mg/dL 70-110 TESTED AT [address] (test rety=8970) [place] [id number] POCT-GLUCOSE [id number] 12:50:00 Test Item Value Reference Range Comments POC-GLUCOSE METER (BEAKER) 227 mg/dL 70-110 TESTED AT [address] (test yxvu=6784) [place] [id number] POCT-GLUCOSE [id number] 07:55:00 Test Item Value Reference Range Comments POC-GLUCOSE METER (BEAKER) 291 mg/dL 70-110 TESTED AT [address] (test biie=3908) [place] [id number] POCT-GLUCOSE [id number] 07:55:00 Test Item Value Reference Range Comments POC-GLUCOSE METER (BEAKER) 344 mg/dL 70-110 Notified GERARDO MARION/TESTED AT [facility] (test fjde=7825) [address] [place] [id number] BASIC METABOLIC [id number] 07:11:00 Test Item Value Reference Range Comments SODIUM (BEAKER) (test 135 meq/L 136-145 lysi=186) POTASSIUM (BEAKER) (test 3.5 meq/L 3.5-5.1 jyua=270) CHLORIDE (BEAKER) (test 94 meq/L 98-107 smbd=489) CO2 (BEAKER) (test 24 meq/L 22-29 bfes=174) BLOOD UREA NITROGEN 37 mg/dL 7-21 (BEAKER) (test dyfq=841) CREATININE (BEAKER) (test 7.71 mg/dL 0.57-1.25 vqgt=272) GLUCOSE RANDOM (BEAKER) 278 mg/dL 70-105 (test fgno=209) CALCIUM (BEAKER) (test 9.4 mg/dL 8.4-10.2 eroo=079) EGFR (BEAKER) (test 5 mL/min/1.73 sq m ESTIMATED GFR IS NOT fywj=1407) ACCURATE CREATININE CLEARANCE IN PREDICTING GLOMERULAR FILTRATION RATE. ESTIMATED GFR IS NOT APPLICABLE FOR DIALYSIS PATIENTS. VANCOMYCIN LEVEL, [id number] 07:10:00 Test Item Value Reference Range Comments VANCOMYCIN RANDOM (BEAKER) (test gcoe=743) 20.5 ug/mL Reference Range: No NormalsPTH, [id number] 07:05:00 Test Item Value Reference Range Comments PARATHYROID HORMONE INTACT (BEAKER) (test 163.0 pg/mL 8.5-72.5 zlbk=345) [id number] 07:04:00 Test Item Value Reference Range Comments PHOSPHORUS (BEAKER) (test afxn=104) 3.9 mg/dL 2.3-4.7 [id number] 07:04:00 Test Item Value Reference Range Comments MAGNESIUM (BEAKER) (test sofa=423) 1.9 mg/dL 1.6-2.6 LACTIC ACID, VENOUS, WHOLE [id number] 06:49:00 Test Item Value Reference Range Comments LACTATE BLOOD VENOUS (2) (BEAKER) (test 2.4 mmol/L 0.5-2.2 drbp=4146) Effective 07/04/2015: Units/Reference Range ChangeNew: 0.5-2.2 mmol/L Previous: 5 -20 mg/dLCBC W/PLT COUNT & AUTO [id number] 06:43:00 Test Item Value Reference Range Comments WHITE BLOOD CELL COUNT (BEAKER) (test sazf=568) 22.8 K/ L 3.5-10.5 RED BLOOD CELL COUNT (BEAKER) (test cfmj=221) 2.87 M/ L 3.93-5.22 HEMOGLOBIN (BEAKER) (test iyou=181) 8.7 GM/DL 11.2-15.7 HEMATOCRIT (BEAKER) (test zami=004) 28.7 % 34.1-44.9 MEAN CORPUSCULAR VOLUME (BEAKER) (test abkg=425) 100.0 fL 79.4-94.8 MEAN CORPUSCULAR HEMOGLOBIN (BEAKER) (test 30.3 pg 25.6-32.2 rghy=956) MEAN CORPUSCULAR HEMOGLOBIN CONC (BEAKER) (test 30.3 GM/DL 32.2-35.5 gcnp=625) RED CELL DISTRIBUTION WIDTH (BEAKER) (test 12.6 % 11.7-14.4 ynku=215) PLATELET COUNT (BEAKER) (test ddia=594) 444 K/CU MM 150-450 MEAN PLATELET VOLUME (BEAKER) (test yjlq=117) 10.3 fL 9.4-12.3 NUCLEATED RED BLOOD CELLS (BEAKER) (test 0 /100 WBC 0-0 dmma=866) NEUTROPHILS RELATIVE PERCENT (BEAKER) (test 84 % gqgh=194) LYMPHOCYTES RELATIVE PERCENT (BEAKER) (test 7 % rfpo=801) MONOCYTES RELATIVE PERCENT (BEAKER) (test 6 % ivcg=506) EOSINOPHILS RELATIVE PERCENT (BEAKER) (test 1 % vznr=359) BASOPHILS RELATIVE PERCENT (BEAKER) (test 0 % rfao=466) NEUTROPHILS ABSOLUTE COUNT (BEAKER) (test 19.15 K/ L 1.56-6.13 mdmc=042) LYMPHOCYTES ABSOLUTE COUNT (BEAKER) (test 1.56 K/ L 1.18-3.74 oknq=773) MONOCYTES ABSOLUTE COUNT (BEAKER) (test 1.28 K/ L 0.24-0.36 kksw=375) EOSINOPHILS ABSOLUTE COUNT (BEAKER) (test 0.28 K/ L 0.04-0.36 aioh=640) BASOPHILS ABSOLUTE COUNT (BEAKER) (test 0.08 K/ L 0.01-0.08 mfxl=278) IMMATURE GRANULOCYTES-RELATIVE PERCENT (BEAKER) 2 % 0-1 (test ddqu=7601) MR, EXTREMITY, LOWER, WITHOUT CONTRAST, [id number] 21:45:00Scan between ankle and kneeReason for exam:->Right [...] MDReport Verified Date/Time: 09/14/2017 21:45:20 Reading Location: [address] Transitional Reading Room POCT-GLUCOSE [id number] 20:42:00 Test Item Value Reference Range Comments POC-GLUCOSE METER (BEAKER) 115 mg/dL 70-110 TESTED AT [address] (test pwjn=9029) [facility] [id number] POCT-GLUCOSE [id number] 19:31:00 Test Item Value Reference Range Comments POC-GLUCOSE METER (BEAKER) 180 mg/dL 70-110 TESTED AT [address] (test bsta=4342) [facility] [address] POCT-GLUCOSE [id number] 19:27:00 Test Item Value Reference Range Comments POC-GLUCOSE METER (BEAKER) 32 mg/dL 70-110 Will Repeat Test/TESTED AT (test xcdd=9059) [address] [place] [address] POCT-GLUCOSE [id number] 11:44:00 Test Item Value Reference Range Comments POC-GLUCOSE METER (BEAKER) 111 mg/dL 70-110 TESTED AT [address] (test jpyr=1721) [facility] [address] CBC W/PLT COUNT & AUTO [id number] 08:37:00 Test Item Value Reference Range Comments WHITE BLOOD CELL COUNT (BEAKER) (test cujx=293) 33.7 K/ L 3.5-10.5 RED BLOOD CELL COUNT (BEAKER) (test usrf=608) 2.57 M/ L 3.93-5.22 HEMOGLOBIN (BEAKER) (test ehcs=633) 7.8 GM/DL 11.2-15.7 HEMATOCRIT (BEAKER) (test sxha=345) 25.9 % 34.1-44.9 MEAN CORPUSCULAR VOLUME (BEAKER) (test jxty=511) 100.8 fL 79.4-94.8 MEAN CORPUSCULAR HEMOGLOBIN (BEAKER) (test 30.4 pg 25.6-32.2 wlmf=491) MEAN CORPUSCULAR HEMOGLOBIN CONC (BEAKER) (test 30.1 GM/DL 32.2-35.5 zqby=519) RED CELL DISTRIBUTION WIDTH (BEAKER) (test 12.4 % 11.7-14.4 kbnn=795) PLATELET COUNT (BEAKER) (test spbw=443) 399 K/CU MM 150-450 MEAN PLATELET VOLUME (BEAKER) (test elnu=546) 10.4 fL 9.4-12.3 NUCLEATED RED BLOOD CELLS (BEAKER) (test 0 /100 WBC 0-0 qcsz=660) (CELLAVISION MANUAL DIFF)2017-09-14 08:37:00 Test Item Value Reference Range Comments NEUTROPHILS - REL (CELLAVISION)(BEAKER) (test 78 % bxoh=3079) LYMPHOCYTES - REL (CELLAVISION)(BEAKER) (test 9 % tjxi=6672) MONOCYTES - REL (CELLAVISION)(BEAKER) (test 2 % mezf=9880) BANDS - REL (CELLAVISION)(BEAKER) (test 11 % 0-10 ugyc=9857) NEUTROPHILS - ABS (CELLAVISION)(BEAKER) (test 26.29 K/ul 1.56-6.13 pnim=2065) LYMPHOCYTES - ABS (CELLAVISION)(BEAKER) (test 3.03 K/ul 1.18-3.74 caxd=5001) MONOCYTES - ABS (CELLAVISION)(BEAKER) (test 0.67 K/uL 0.24-0.36 htzl=8740) BANDS - ABS (CELLAVISION)(BEAKER) (test 3.71 K/uL 0.00-0.80 vosm=5411) TOTAL COUNTED (BEAKER) (test wvzy=6753) 100 RBC MORPHOLOGY (BEAKER) (test muql=500) Normal WBC MORPHOLOGY (BEAKER) (test zmiq=000) Normal PLT MORPHOLOGY (BEAKER) (test nopq=845) Normal ARTIFACT (CELLAVISION)(BEAKER) (test gsht=6916) Present PLATELET CONCENTRATION (CELLAVISION)(BEAKER) Adequate (test gaon=0909) Received comment: User comments: Slide comments:POCT-GLUCOSE [id number] 07: 51:00 Test Item Value Reference Range Comments POC-GLUCOSE METER (BEAKER) 177 mg/dL 70-110 TESTED AT [facility] [address] (test bbln=1017) [facility] [address] BASIC METABOLIC [id number] 04:25:00 Test Item Value Reference Range Comments SODIUM (BEAKER) (test 132 meq/L 136-145 bsex=515) POTASSIUM (BEAKER) (test 3.9 meq/L 3.5-5.1 wvju=634) CHLORIDE (BEAKER) (test 95 meq/L 98-107 wwcd=884) CO2 (BEAKER) (test 20 meq/L 22-29 avxk=805) BLOOD UREA NITROGEN 37 mg/dL 7-21 (BEAKER) (test bgnv=925) CREATININE (BEAKER) (test 7.86 mg/dL 0.57-1.25 zalt=441) GLUCOSE RANDOM (BEAKER) 137 mg/dL 70-105 (test wkfa=392) CALCIUM (BEAKER) (test 9.2 mg/dL 8.4-10.2 mlwh=023) EGFR (BEAKER) (test 5 mL/min/1.73 sq m ESTIMATED GFR IS NOT nfzf=6847) ACCURATE CREATININE CLEARANCE IN PREDICTING GLOMERULAR FILTRATION RATE. ESTIMATED GFR IS NOT APPLICABLE FOR DIALYSIS PATIENTS. URINALYSIS W/ REFLEX URINE [id number] 04:24:00 Test Item Value Reference Range Comments COLOR (BEAKER) (test edkp=536) Yellow CLARITY (BEAKER) (test kxco=308) Clear SPECIFIC GRAVITY UA (BEAKER) (test goxu=207) 1.009 1.001-1.035 PH UA (BEAKER) (test rlax=070) 7.5 5.0-8.0 PROTEIN UA (BEAKER) (test ysgr=585) 200 mg/dL Negative GLUCOSE UA (BEAKER) (test utsk=367) 500 mg/dL Negative KETONES UA (BEAKER) (test lalj=652) Negative Negative BILIRUBIN UA (BEAKER) (test xqvw=362) Negative Negative BLOOD UA (BEAKER) (test dmez=762) Negative Negative NITRITE UA (BEAKER) (test byqf=649) Negative Negative LEUKOCYTE ESTERASE UA (BEAKER) (test zeig=700) Negative Negative UROBILINOGEN UA (BEAKER) (test oxfr=135) 0.2 mg/dL 0.2-1.0 RBC UA (BEAKER) (test xjkt=884) < /HPF WBC UA (BEAKER) (test tfce=662) 3 /HPF SQUAMOUS EPITHELIAL (BEAKER) (test laxo=799) < /HPF SOURCE(BEAKER) (test rklk=9910) [id number] 04:23:00 Test Item Value Reference Range Comments PHOSPHORUS (BEAKER) (test aqdg=823) 4.2 mg/dL 2.3-4.7 [id number] 04:23:00 Test Item Value Reference Range Comments MAGNESIUM (BEAKER) (test fqgv=760) 2.1 mg/dL 1.6-2.6 VANCOMYCIN LEVEL, [id number] 04:21:00 Test Item Value Reference Range Comments VANCOMYCIN RANDOM (BEAKER) (test qmib=654) 24.5 ug/mL Reference Range: No NormalsBODY FLUID CELL COUNT WITH [id number] 02: 20:00 Test Item Value Reference Range Comments APPEARANCE FLUID (BEAKER) (test rhll=066) Clear Clear COLOR FLUID (BEAKER) (test yumt=325) Colorless Colorless, Straw RBC FLUID (BEAKER) (test oeym=335) 0 /cu mm <=1 ADJUSTED WBC FLUID (BEAKER) (test oaje=5623) 0 /cu mm <=5 LINING CELLS (BEAKER) (test heit=7099) 0 /cu mm <=1 NEUTROPHILS FLUID (BEAKER) (test pyln=7590) 0 % LYMPHS FLUID (BEAKER) (test znns=780) 0 % MONO/MACROPHAGE FLUID (BEAKER) (test lnra=239) 0 % EOSINOPHILS FLUID (BEAKER) (test htlz=116) 0 % BASO FLUID (BEAKER) (test xkte=241) 0 % CONTAINER BODY FLUID (BEAKER) (test fslu=7047) EDTA Tube POCT-GLUCOSE [id number] 23:51:00 Test Item Value Reference Range Comments POC-GLUCOSE METER (BEAKER) 171 mg/dL 70-110 TESTED AT [facility] [address] (test lcma=2395) [facility] [address] CBC W/PLT COUNT & AUTO [id number] 19:20:00 Test Item Value Reference Range Comments WHITE BLOOD CELL COUNT (BEAKER) (test ueuj=543) 35.0 K/ L 3.5-10.5 RED BLOOD CELL COUNT (BEAKER) (test ptxe=719) 2.56 M/ L 3.93-5.22 HEMOGLOBIN (BEAKER) (test ifmf=404) 7.8 GM/DL 11.2-15.7 HEMATOCRIT (BEAKER) (test dttt=763) 25.4 % 34.1-44.9 MEAN CORPUSCULAR VOLUME (BEAKER) (test xrzw=942) 99.2 fL 79.4-94.8 MEAN CORPUSCULAR HEMOGLOBIN (BEAKER) (test 30.5 pg 25.6-32.2 nkxg=299) MEAN CORPUSCULAR HEMOGLOBIN CONC (BEAKER) (test 30.7 GM/DL 32.2-35.5 jdeb=940) RED CELL DISTRIBUTION WIDTH (BEAKER) (test 12.4 % 11.7-14.4 kgdp=775) PLATELET COUNT (BEAKER) (test crsq=203) 397 K/CU MM 150-450 MEAN PLATELET VOLUME (BEAKER) (test szia=858) 10.4 fL 9.4-12.3 NUCLEATED RED BLOOD CELLS (BEAKER) (test 0 /100 WBC 0-0 wpjj=851) (CELLAVISION MANUAL DIFF)2017-09-13 19:20:00 Test Item Value Reference Range Comments NEUTROPHILS - REL (CELLAVISION)(BEAKER) (test 92 % gwzt=9697) LYMPHOCYTES - REL (CELLAVISION)(BEAKER) (test 3 % yzdz=0890) MONOCYTES - REL (CELLAVISION)(BEAKER) (test 3 % bijh=7393) BASOPHILS - REL (CELLAVISION)(BEAKER) (test 1 % mcks=0381) ATYPICAL LYMPHOCYTES - REL (CELLAVISION)(BEAKER) 1 % 0-0 (test buhb=6375) NEUTROPHILS - ABS (CELLAVISION)(BEAKER) (test 32.20 K/ul 1.56-6.13 kiqu=5154) LYMPHOCYTES - ABS (CELLAVISION)(BEAKER) (test 1.05 K/ul 1.18-3.74 irmc=6775) MONOCYTES - ABS (CELLAVISION)(BEAKER) (test 1.05 K/uL 0.24-0.36 wilp=7899) BASOPHILS - ABS (CELLAVISION)(BEAKER) (test 0.35 K/uL 0.01-0.08 rdtb=7254) ATYPICAL LYMPHOCYTES - ABS (CELLAVISION)(BEAKER) 0.35 K/uL 0.00-0.00 (test qqvt=6736) TOTAL COUNTED (BEAKER) (test tzsb=9026) 100 MANUAL NRBC PER 100 CELLS (BEAKER) (test 1 /100 WBC 0-0 ibzs=6025) WBC MORPHOLOGY (BEAKER) (test rjrr=815) Normal GIANT PLATELETS (BEAKER) (test ioff=556) Present ANISOCYTOSIS (BEAKER) (test pytl=085) 1+ few MACROCYTES (BEAKER) (test blwr=425) 1+ few ARTIFACT (CELLAVISION)(BEAKER) (test pmbl=0000) Present PLATELET CONCENTRATION (CELLAVISION)(BEAKER) Adequate (test pdoj=5140) Received comment: User comments: Slide comments:BASIC METABOLIC [id number] 18:48:00 Test Item Value Reference Range Comments SODIUM (BEAKER) (test 134 meq/L 136-145 gomc=041) POTASSIUM (BEAKER) (test 4.1 meq/L 3.5-5.1 rzxr=202) CHLORIDE (BEAKER) (test 97 meq/L 98-107 azwo=047) CO2 (BEAKER) (test 20 meq/L 22-29 vsso=888) BLOOD UREA NITROGEN 38 mg/dL 7-21 (BEAKER) (test vwyn=114) CREATININE (BEAKER) (test 8.29 mg/dL 0.57-1.25 jjsp=628) GLUCOSE RANDOM (BEAKER) 80 mg/dL 70-105 (test vlja=892) CALCIUM (BEAKER) (test 8.9 mg/dL 8.4-10.2 hqvx=974) EGFR (BEAKER) (test 5 mL/min/1.73 sq m ESTIMATED GFR IS NOT iczz=9349) ACCURATE CREATININE CLEARANCE IN PREDICTING GLOMERULAR FILTRATION RATE. ESTIMATED GFR IS NOT APPLICABLE FOR DIALYSIS PATIENTS. POCT-LACTIC ACID, [id number] 18:13:00 Test Item Value Reference Range Comments POC-LACTIC ACID, ARTERIAL 1.7 mmol/L 0.4-1.3 TESTED AT [address] (BEAKER) (test iyop=5297) [facility] [address] POCT-BLOOD GASES, [id number] 18:13:00 Test Item Value Reference Range Comments TEMP, CELSIUS-POC (BEAKER) 36.2 (test vemx=0428) FIO2-POC (BEAKER) (test 21 TESTED AT [address] jliq=7758) [facility] [address] PH, ARTERIAL-POC (BEAKER) 7.454 7.350-7.450 (test dwqm=4483) PCO2, ARTERIAL-POC (BEAKER) 36.7 mm Hg 35.0-45.0 (test anzt=1628) PO2, ARTERIAL-POC (BEAKER) 60.0 mm Hg 80.0-90.0 (test kjag=0288) SO2, ARTERIAL-POC (BEAKER) 93.0 % 96.0-97.0 (test cqrr=3588) HCO3, ARTERIAL-POC (BEAKER) 25.9 meq/L 21.0-29.0 (test ifjn=4341) BASE EXCESS, ARTERIAL-POC 2.0 meq/L -2.0-3.0 (BEAKER) (test xmqs=5205) [id number] 18:13:00 Test Item Value Reference Range Comments POC-SODIUM (BEAKER) (test 134 meq/L 135-148 TESTED AT [address] nmwn=3573) [place] [address] [id number] 18:13:00 Test Item Value Reference Range Comments POC-POTASSIUM (BEAKER) (test 4.0 meq/L 3.6-5.5 TESTED AT [address] vttr=4557) [place] [address] [id number] 18:13:00 Test Item Value Reference Range Comments POC-GLUCOSE (BEAKER) (test 80 mg/dL 70-110 TESTED AT [address] psbt=2199) [place] [address] POCT-CALCIUM [id number] 18:13:00 Test Item Value Reference Range Comments POC-CALCIUM IONIZED (BEAKER) 1.12 mmol/L 1.12-1.27 TESTED AT [address] (test ahpy=7539) [place] [address] [id number] 18:13:00 Test Item Value Reference Range Comments POC-HEMATOCRIT (BEAKER) (test 24 % 36-45 TESTED AT [address] wqsc=3640) [place] [address] [id number] 18:13:00 Test Item Value Reference Range Comments POC-HEMOGLOBIN (BEAKER) 8.2 g/dL 12.0-15.0 TESTED AT [address] (test ijoh=0921) [place] [address]TESTED AT [place] [address] POCT-GLUCOSE [id number] 16:59:00 Test Item Value Reference Range Comments POC-GLUCOSE METER (BEAKER) 81 mg/dL 70-110 TESTED AT [address] (test uhis=2310) [place] [address] POCT-GLUCOSE [id number] 13:53:00 Test Item Value Reference Range Comments POC-GLUCOSE METER (BEAKER) 117 mg/dL 70-110 TESTED AT [address] (test plfo=4785) [place] [address] LACTIC ACID, VENOUS, WHOLE [id number] 13:30:00 Test Item Value Reference Range Comments LACTATE BLOOD VENOUS (2) (BEAKER) (test 1.7 mmol/L 0.5-2.2 kzff=9841) Effective 07/04/2015: Units/Reference Range ChangeNew: 0.5-2.2 mmol/L Previous: 5 -20 mg/dLBLOOD [id number] 11:00:00 Test Item Value Reference Range Comments CULTURE (BEAKER) (test ubie=0847) No growth in 5 days BLOOD [id number] 11:00:00 Test Item Value Reference Range Comments CULTURE (BEAKER) (test mvbu=7018) No growth in 5 days POCT-GLUCOSE [id number] 08:35:00 Test Item Value Reference Range Comments POC-GLUCOSE METER (BEAKER) 286 mg/dL 70-110 TESTED AT [facility] [address] (test umig=5978) [facility] [address] BASIC METABOLIC [id number] 07:40:00 Test Item Value Reference Range Comments SODIUM (BEAKER) (test 134 meq/L 136-145 tqkt=292) POTASSIUM (BEAKER) (test 3.2 meq/L 3.5-5.1 lmvc=767) CHLORIDE (BEAKER) (test 95 meq/L 98-107 zksj=875) CO2 (BEAKER) (test 23 meq/L 22-29 cmkx=755) BLOOD UREA NITROGEN 35 mg/dL 7-21 (BEAKER) (test xkjm=262) CREATININE (BEAKER) (test 7.78 mg/dL 0.57-1.25 pztw=655) GLUCOSE RANDOM (BEAKER) 264 mg/dL 70-105 (test tjkr=459) CALCIUM (BEAKER) (test 9.0 mg/dL 8.4-10.2 pcnk=234) EGFR (BEAKER) (test 5 mL/min/1.73 sq m ESTIMATED GFR IS NOT znhs=0237) ACCURATE CREATININE CLEARANCE IN PREDICTING GLOMERULAR FILTRATION RATE. ESTIMATED GFR IS NOT APPLICABLE FOR DIALYSIS PATIENTS. [id number] 07:34:00 Test Item Value Reference Range Comments PHOSPHORUS (BEAKER) (test nnpy=976) 4.1 mg/dL 2.3-4.7 [id number] 07:34:00 Test Item Value Reference Range Comments MAGNESIUM (BEAKER) (test vhiy=139) 1.8 mg/dL 1.6-2.6 CBC W/PLT COUNT & AUTO [id number] 07:32:00 Test Item Value Reference Range Comments WHITE BLOOD CELL COUNT (BEAKER) (test lsho=785) 21.0 K/ L 3.5-10.5 RED BLOOD CELL COUNT (BEAKER) (test jtaf=552) 2.63 M/ L 3.93-5.22 HEMOGLOBIN (BEAKER) (test oaaf=974) 7.9 GM/DL 11.2-15.7 HEMATOCRIT (BEAKER) (test jwqq=709) 26.1 % 34.1-44.9 MEAN CORPUSCULAR VOLUME (BEAKER) (test rzcn=808) 99.2 fL 79.4-94.8 MEAN CORPUSCULAR HEMOGLOBIN (BEAKER) (test 30.0 pg 25.6-32.2 sqxm=968) MEAN CORPUSCULAR HEMOGLOBIN CONC (BEAKER) (test 30.3 GM/DL 32.2-35.5 katu=595) RED CELL DISTRIBUTION WIDTH (BEAKER) (test 12.3 % 11.7-14.4 vakc=547) PLATELET COUNT (BEAKER) (test gxqg=965) 379 K/CU MM 150-450 MEAN PLATELET VOLUME (BEAKER) (test rvgg=081) 10.8 fL 9.4-12.3 NUCLEATED RED BLOOD CELLS (BEAKER) (test 0 /100 WBC 0-0 kyrs=641) NEUTROPHILS RELATIVE PERCENT (BEAKER) (test 82 % axeh=349) LYMPHOCYTES RELATIVE PERCENT (BEAKER) (test 8 % udag=125) MONOCYTES RELATIVE PERCENT (BEAKER) (test 7 % cdnh=114) EOSINOPHILS RELATIVE PERCENT (BEAKER) (test 2 % kuxd=273) BASOPHILS RELATIVE PERCENT (BEAKER) (test 1 % pzok=331) NEUTROPHILS ABSOLUTE COUNT (BEAKER) (test 17.16 K/ L 1.56-6.13 jtuk=739) LYMPHOCYTES ABSOLUTE COUNT (BEAKER) (test 1.65 K/ L 1.18-3.74 eqle=099) MONOCYTES ABSOLUTE COUNT (BEAKER) (test 1.44 K/ L 0.24-0.36 rzyc=951) EOSINOPHILS ABSOLUTE COUNT (BEAKER) (test 0.34 K/ L 0.04-0.36 izht=926) BASOPHILS ABSOLUTE COUNT (BEAKER) (test 0.12 K/ L 0.01-0.08 vqox=902) IMMATURE GRANULOCYTES-RELATIVE PERCENT (BEAKER) 1 % 0-1 (test kdpb=2155) POCT-GLUCOSE [id number] 16:51:00 Test Item Value Reference Range Comments POC-GLUCOSE METER (BEAKER) 106 mg/dL 70-110 TESTED AT [facility] [address] (test zmio=6304) [facility] [address] POCT-GLUCOSE [id number] 12:50:00 Test Item Value Reference Range Comments POC-GLUCOSE METER (BEAKER) 106 mg/dL 70-110 TESTED AT [address] (test vzjc=2137) [facility] [address] POCT-GLUCOSE [id number] 08:10:00 Test Item Value Reference Range Comments POC-GLUCOSE METER (BEAKER) 337 mg/dL 70-110 Notified GERARDO MARION/TESTED AT [facility] (test uihd=5741) [address] [place] [address] VANCOMYCIN LEVEL, [id number] 06:54:00 Test Item Value Reference Range Comments VANCOMYCIN RANDOM (BEAKER) (test csju=421) 26.6 ug/mL Reference Range: No [id number] 06:51:00 Test Item Value Reference Range Comments PHOSPHORUS (BEAKER) (test hgsp=085) 4.9 mg/dL 2.3-4.7 [id number] 06:51:00 Test Item Value Reference Range Comments MAGNESIUM (BEAKER) (test emfb=181) 2.0 mg/dL 1.6-2.6 BASIC METABOLIC [id number] 06:51:00 Test Item Value Reference Range Comments SODIUM (BEAKER) (test 135 meq/L 136-145 pnor=856) POTASSIUM (BEAKER) (test 3.3 meq/L 3.5-5.1 npqn=285) CHLORIDE (BEAKER) (test 94 meq/L 98-107 fcma=825) CO2 (BEAKER) (test 25 meq/L 22-29 zdrd=615) BLOOD UREA NITROGEN 37 mg/dL 7-21 (BEAKER) (test sqzu=308) CREATININE (BEAKER) (test 7.91 mg/dL 0.57-1.25 nkbm=135) GLUCOSE RANDOM (BEAKER) 306 mg/dL 70-105 (test xoza=339) CALCIUM (BEAKER) (test 9.1 mg/dL 8.4-10.2 rssb=765) EGFR (BEAKER) (test 5 mL/min/1.73 sq m ESTIMATED GFR IS NOT seip=1299) ACCURATE CREATININE CLEARANCE IN PREDICTING GLOMERULAR FILTRATION RATE. ESTIMATED GFR IS NOT APPLICABLE FOR DIALYSIS PATIENTS. CBC W/PLT COUNT & AUTO [id number] 06:43:00 Test Item Value Reference Range Comments WHITE BLOOD CELL COUNT (BEAKER) (test mtic=690) 13.7 K/ L 3.5-10.5 RED BLOOD CELL COUNT (BEAKER) (test tnwj=247) 2.55 M/ L 3.93-5.22 HEMOGLOBIN (BEAKER) (test foab=781) 7.7 GM/DL 11.2-15.7 HEMATOCRIT (BEAKER) (test emyb=804) 24.9 % 34.1-44.9 MEAN CORPUSCULAR VOLUME (BEAKER) (test dyfu=164) 97.6 fL 79.4-94.8 MEAN CORPUSCULAR HEMOGLOBIN (BEAKER) (test 30.2 pg 25.6-32.2 fqlo=592) MEAN CORPUSCULAR HEMOGLOBIN CONC (BEAKER) (test 30.9 GM/DL 32.2-35.5 jvao=403) RED CELL DISTRIBUTION WIDTH (BEAKER) (test 12.1 % 11.7-14.4 pbvw=762) PLATELET COUNT (BEAKER) (test xdso=089) 322 K/CU MM 150-450 MEAN PLATELET VOLUME (BEAKER) (test frhh=067) 10.6 fL 9.4-12.3 NUCLEATED RED BLOOD CELLS (BEAKER) (test 0 /100 WBC 0-0 iaoa=164) NEUTROPHILS RELATIVE PERCENT (BEAKER) (test 77 % cbes=108) LYMPHOCYTES RELATIVE PERCENT (BEAKER) (test 11 % iokw=545) MONOCYTES RELATIVE PERCENT (BEAKER) (test 8 % yurm=408) EOSINOPHILS RELATIVE PERCENT (BEAKER) (test 3 % usjn=229) BASOPHILS RELATIVE PERCENT (BEAKER) (test 1 % pgdx=686) NEUTROPHILS ABSOLUTE COUNT (BEAKER) (test 10.53 K/ L 1.56-6.13 xjgq=517) LYMPHOCYTES ABSOLUTE COUNT (BEAKER) (test 1.45 K/ L 1.18-3.74 xnff=646) MONOCYTES ABSOLUTE COUNT (BEAKER) (test 1.05 K/ L 0.24-0.36 mzcq=038) EOSINOPHILS ABSOLUTE COUNT (BEAKER) (test 0.40 K/ L 0.04-0.36 koaf=128) BASOPHILS ABSOLUTE COUNT (BEAKER) (test 0.09 K/ L 0.01-0.08 uhzf=203) IMMATURE GRANULOCYTES-RELATIVE PERCENT (BEAKER) 1 % 0-1 (test csmn=7728) POCT-GLUCOSE [id number] 21:04:00 Test Item Value Reference Range Comments POC-GLUCOSE METER (BEAKER) 392 mg/dL 70-110 TESTED AT [address] (test qwdl=5140) [place] [address] POCT-GLUCOSE [id number] 17:19:00 Test Item Value Reference Range Comments POC-GLUCOSE METER (BEAKER) 164 mg/dL 70-110 TESTED AT [address] (test dtdn=0273) [place] [address] TISSUE [id number] 14:37:00Surgical Pathology Report Case: [id number] Authorizing Provider: Dilan James MD Collected: 09/10/2017911 Ordering Location: [address] Received: 09/10/2017911 Service Pathologist: Vamsi Berrios MD Specimen: Skin A. RIGHT LOWER EXTREMITY, SKIN PUNCH BIOPSY:- FAT NECROSIS AND ABSCESS- FOCAL LARGE VESSEL VASCULITIS (SEE NOTE)NOTE:The vasculitis may be secondary to the necrosis and abscess. However, correlation with serologic studies is recommended.This case has been discussed with Dr. Satya Miller on 09/11/17, at approximately 2:15 PM. Signing Pathologist Direct Phone Line: [phone] signed by Vamsi Berrios MD on 09/11/2017 [...] NegativeFite - NegativeBODY FLUID CULTURE + GRAM [id number] 11:53:00 Test Item Value Reference Range Comments CULTURE (BEAKER) (test aynd=1341) No growth GRAM STAIN RESULT (BEAKER) (test <1+ WBCs hthu=7787) GRAM STAIN RESULT (BEAKER) (test No organisms seen dxkr=05679) PERITONEAL DIALYSIS EFFLUENT [id number] 11:53:00 Test Item Value Reference Range Comments CULTURE (BEAKER) (test oobi=6356) No growth GRAM STAIN RESULT (BEAKER) (test <1+ WBCs mntw=7597) GRAM STAIN RESULT (BEAKER) (test No organisms seen rfzb=52618) POCT-GLUCOSE [id number] 11:04:00 Test Item Value Reference Range Comments POC-GLUCOSE METER (BEAKER) 252 mg/dL 70-110 TESTED AT [facility] [address] (test bprm=1877) [facility] [address] VANCOMYCIN LEVEL, [id number] 06:45:00 Test Item Value Reference Range Comments VANCOMYCIN RANDOM (BEAKER) (test gvpb=517) 34.7 ug/mL Reference Range: No [id number] 06:40:00 Test Item Value Reference Range Comments PHOSPHORUS (BEAKER) (test cgyk=696) 5.4 mg/dL 2.3-4.7 [id number] 06:40:00 Test Item Value Reference Range Comments MAGNESIUM (BEAKER) (test wogi=522) 2.0 mg/dL 1.6-2.6 C-REACTIVE [id number] 06:40:00 Test Item Value Reference Range Comments C-REACTIVE PROTEIN (BEAKER) (test oldk=836) 15.69 mg/dL 0.00-0.50 BASIC METABOLIC [id number] 06:40:00 Test Item Value Reference Range Comments SODIUM (BEAKER) (test 134 meq/L 136-145 yksy=017) POTASSIUM (BEAKER) (test 3.5 meq/L 3.5-5.1 ceee=800) CHLORIDE (BEAKER) (test 95 meq/L 98-107 jwpb=958) CO2 (BEAKER) (test 22 meq/L 22-29 peny=275) BLOOD UREA NITROGEN 40 mg/dL 7-21 (BEAKER) (test qtoi=406) CREATININE (BEAKER) (test 8.42 mg/dL 0.57-1.25 nhay=470) GLUCOSE RANDOM (BEAKER) 383 mg/dL 70-105 (test mpbw=498) CALCIUM (BEAKER) (test 8.6 mg/dL 8.4-10.2 dwyk=049) EGFR (BEAKER) (test 5 mL/min/1.73 sq m ESTIMATED GFR IS NOT pjeh=0745) ACCURATE CREATININE CLEARANCE IN PREDICTING GLOMERULAR FILTRATION RATE. ESTIMATED GFR IS NOT APPLICABLE FOR DIALYSIS PATIENTS. CBC W/PLT COUNT & AUTO [id number] 05:45:00 Test Item Value Reference Range Comments WHITE BLOOD CELL COUNT (BEAKER) (test mgmd=217) 14.2 K/ L 3.5-10.5 RED BLOOD CELL COUNT (BEAKER) (test hbad=907) 2.68 M/ L 3.93-5.22 HEMOGLOBIN (BEAKER) (test erau=752) 8.0 GM/DL 11.2-15.7 HEMATOCRIT (BEAKER) (test hgyw=505) 26.3 % 34.1-44.9 MEAN CORPUSCULAR VOLUME (BEAKER) (test ymsz=620) 98.1 fL 79.4-94.8 MEAN CORPUSCULAR HEMOGLOBIN (BEAKER) (test 29.9 pg 25.6-32.2 owkb=353) MEAN CORPUSCULAR HEMOGLOBIN CONC (BEAKER) (test 30.4 GM/DL 32.2-35.5 qywm=559) RED CELL DISTRIBUTION WIDTH (BEAKER) (test 12.2 % 11.7-14.4 bxcy=252) PLATELET COUNT (BEAKER) (test kiwl=820) 301 K/CU MM 150-450 MEAN PLATELET VOLUME (BEAKER) (test exyy=034) 10.3 fL 9.4-12.3 NUCLEATED RED BLOOD CELLS (BEAKER) (test 0 /100 WBC 0-0 fypi=739) NEUTROPHILS RELATIVE PERCENT (BEAKER) (test 80 % lhah=822) LYMPHOCYTES RELATIVE PERCENT (BEAKER) (test 9 % xtup=388) MONOCYTES RELATIVE PERCENT (BEAKER) (test 7 % htpy=549) EOSINOPHILS RELATIVE PERCENT (BEAKER) (test 2 % lfxe=198) BASOPHILS RELATIVE PERCENT (BEAKER) (test 1 % pzpt=184) NEUTROPHILS ABSOLUTE COUNT (BEAKER) (test 11.33 K/ L 1.56-6.13 yqqz=316) LYMPHOCYTES ABSOLUTE COUNT (BEAKER) (test 1.29 K/ L 1.18-3.74 daoc=830) MONOCYTES ABSOLUTE COUNT (BEAKER) (test 0.99 K/ L 0.24-0.36 xlit=597) EOSINOPHILS ABSOLUTE COUNT (BEAKER) (test 0.22 K/ L 0.04-0.36 lmgl=771) BASOPHILS ABSOLUTE COUNT (BEAKER) (test 0.10 K/ L 0.01-0.08 oygw=223) IMMATURE GRANULOCYTES-RELATIVE PERCENT (BEAKER) 2 % 0-1 (test qhel=7041) POCT-GLUCOSE [id number] 20:44:00 Test Item Value Reference Range Comments POC-GLUCOSE METER (BEAKER) 210 mg/dL 70-110 TESTED AT [address] (test dfbk=6095) [place] [address] POCT-GLUCOSE [id number] 17:07:00 Test Item Value Reference Range Comments POC-GLUCOSE METER (BEAKER) 95 mg/dL 70-110 TESTED AT [address] (test pyko=3466) [place] [address] POCT-GLUCOSE [id number] 11:57:00 Test Item Value Reference Range Comments POC-GLUCOSE METER (BEAKER) 98 mg/dL 70-110 TESTED AT [address] (test puuq=4497) [place] [address] POCT-GLUCOSE [id number] 07:37:00 Test Item Value Reference Range Comments POC-GLUCOSE METER (BEAKER) 217 mg/dL 70-110 TESTED AT [address] (test vbho=8498) [facility] [address] BASIC METABOLIC [id number] 05:38:00 Test Item Value Reference Range Comments SODIUM (BEAKER) (test 134 meq/L 136-145 kdja=154) POTASSIUM (BEAKER) (test 3.7 meq/L 3.5-5.1 hnzz=092) CHLORIDE (BEAKER) (test 97 meq/L 98-107 okoz=133) CO2 (BEAKER) (test 20 meq/L 22-29 varp=862) BLOOD UREA NITROGEN 44 mg/dL 7-21 (BEAKER) (test sypx=989) CREATININE (BEAKER) (test 9.09 mg/dL 0.57-1.25 kcgo=983) GLUCOSE RANDOM (BEAKER) 299 mg/dL 70-105 (test wtfn=559) CALCIUM (BEAKER) (test 8.3 mg/dL 8.4-10.2 feai=550) EGFR (BEAKER) (test 4 mL/min/1.73 sq m ESTIMATED GFR IS NOT rehq=4645) ACCURATE CREATININE CLEARANCE IN PREDICTING GLOMERULAR FILTRATION RATE. ESTIMATED GFR IS NOT APPLICABLE FOR DIALYSIS PATIENTS. [id number] 05:34:00 Test Item Value Reference Range Comments PHOSPHORUS (BEAKER) (test aogc=495) 6.0 mg/dL 2.3-4.7 [id number] 05:34:00 Test Item Value Reference Range Comments MAGNESIUM (BEAKER) (test whvn=990) 2.0 mg/dL 1.6-2.6 CBC W/PLT COUNT & AUTO [id number] 05:13:00 Test Item Value Reference Range Comments WHITE BLOOD CELL COUNT (BEAKER) (test iwnd=332) 13.7 K/ L 3.5-10.5 RED BLOOD CELL COUNT (BEAKER) (test pxil=172) 2.53 M/ L 3.93-5.22 HEMOGLOBIN (BEAKER) (test rrxn=104) 7.7 GM/DL 11.2-15.7 HEMATOCRIT (BEAKER) (test dzna=108) 25.0 % 34.1-44.9 MEAN CORPUSCULAR VOLUME (BEAKER) (test nzwc=904) 98.8 fL 79.4-94.8 MEAN CORPUSCULAR HEMOGLOBIN (BEAKER) (test 30.4 pg 25.6-32.2 civt=365) MEAN CORPUSCULAR HEMOGLOBIN CONC (BEAKER) (test 30.8 GM/DL 32.2-35.5 ydmd=960) RED CELL DISTRIBUTION WIDTH (BEAKER) (test 12.1 % 11.7-14.4 lbzx=838) PLATELET COUNT (BEAKER) (test yikq=618) 297 K/CU MM 150-450 MEAN PLATELET VOLUME (BEAKER) (test zydh=727) 10.2 fL 9.4-12.3 NUCLEATED RED BLOOD CELLS (BEAKER) (test 0 /100 WBC 0-0 iydq=227) NEUTROPHILS RELATIVE PERCENT (BEAKER) (test 79 % wwoe=265) LYMPHOCYTES RELATIVE PERCENT (BEAKER) (test 10 % mrao=030) MONOCYTES RELATIVE PERCENT (BEAKER) (test 8 % tcwj=650) EOSINOPHILS RELATIVE PERCENT (BEAKER) (test 3 % rckj=316) BASOPHILS RELATIVE PERCENT (BEAKER) (test 0 % gxdz=648) NEUTROPHILS ABSOLUTE COUNT (BEAKER) (test 10.82 K/ L 1.56-6.13 ktrb=659) LYMPHOCYTES ABSOLUTE COUNT (BEAKER) (test 1.31 K/ L 1.18-3.74 fwvl=155) MONOCYTES ABSOLUTE COUNT (BEAKER) (test 1.02 K/ L 0.24-0.36 jqch=453) EOSINOPHILS ABSOLUTE COUNT (BEAKER) (test 0.36 K/ L 0.04-0.36 rgwy=645) BASOPHILS ABSOLUTE COUNT (BEAKER) (test 0.04 K/ L 0.01-0.08 rcct=456) IMMATURE GRANULOCYTES-RELATIVE PERCENT (BEAKER) 1 % 0-1 (test sijo=9516) VANCOMYCIN LEVEL, [id number] 05:12:00 Test Item Value Reference Range Comments VANCOMYCIN RANDOM (BEAKER) (test dlsy=618) 13.0 ug/mL Reference Range: No NormalsPOCT-GLUCOSE [id number] 21:46:00 Test Item Value Reference Range Comments POC-GLUCOSE METER (BEAKER) 230 mg/dL 70-110 TESTED AT [facility] [address] (test dmdr=9571) [facility] [address] POCT-GLUCOSE [id number] 17:15:00 Test Item Value Reference Range Comments POC-GLUCOSE METER (BEAKER) 112 mg/dL 70-110 TESTED AT [facility] [address] (test mudo=4243) [facility] [address] RAD, FEMUR, MIN. 2 VIEWS, [id number] 16:31:00Reason for exam:->leg pain , eval specifically [...] Watts VerifiedDate/Time: 09/09/2017 16:31 :47 Reading Location: [address] Consult Reading Room RAD, FOOT, MIN 3 VIEWS, [id number] 16:31:00Reason for exam:->L foot 3rd metatarsal tendernessFINAL [...] Kaylyn Watts VerifiedDate/Time: 09/09/2017 16:31:47 Reading Location: [facility] C013W Consult Reading Room 04 :31 PMRAD, LEG, [id number] 16:31:00Reason for exam:->leg pain, eval specifically for [...] Watts VerifiedDate/Time: 09/09/2017 16:31 :47 Reading Location: [facility] B1 C013W Consult Reading Room POCT-GLUCOSE [id number] 12:01:00 Test Item Value Reference Range Comments POC-GLUCOSE METER (BEAKER) 89 mg/dL 70-110 TESTED AT [facility] [address] (test tklt=3986) [facility] [address] POCT-GLUCOSE [id number] 07:46:00 Test Item Value Reference Range Comments POC-GLUCOSE METER (BEAKER) 302 mg/dL 70-110 Notified GERARDO MARION/TESTED AT [facility] (test gdyz=5858) [address] [facility] [address] [id number] 06:07:00 Test Item Value Reference Range Comments FERRITIN (BEAKER) (test rjqx=084) 742 ng/mL 5-275 VITAMIN B12 AND [id number] 06:07:00 Test Item Value Reference Range Comments VITAMIN B12 (BEAKER) (test wbkp=269) 462 pg/mL 213-816 FOLATE (BEAKER) (test mlow=142) 3.1 ng/mL >=7.0 BASIC METABOLIC [id number] 05:37:00 Test Item Value Reference Range Comments SODIUM (BEAKER) (test 136 meq/L 136-145 vqre=602) POTASSIUM (BEAKER) (test 4.2 meq/L 3.5-5.1 jolk=028) CHLORIDE (BEAKER) (test 100 meq/L 98-107 ijkv=932) CO2 (BEAKER) (test 17 meq/L 22-29 xqud=055) BLOOD UREA NITROGEN 51 mg/dL 7-21 (BEAKER) (test deao=223) CREATININE (BEAKER) (test 9.93 mg/dL 0.57-1.25 ceya=386) GLUCOSE RANDOM (BEAKER) 274 mg/dL 70-105 (test mlif=064) CALCIUM (BEAKER) (test 8.4 mg/dL 8.4-10.2 jgrm=709) EGFR (BEAKER) (test 4 mL/min/1.73 sq m ESTIMATED GFR IS NOT fasf=6103) ACCURATE CREATININE CLEARANCE IN PREDICTING GLOMERULAR FILTRATION RATE. ESTIMATED GFR IS NOT APPLICABLE FOR DIALYSIS PATIENTS. [id number] 05:35:00 Test Item Value Reference Range Comments PHOSPHORUS (BEAKER) (test zylw=835) 7.3 mg/dL 2.3-4.7 [id number] 05:35:00 Test Item Value Reference Range Comments MAGNESIUM (BEAKER) (test cary=266) 2.2 mg/dL 1.6-2.6 VANCOMYCIN LEVEL, [id number] 05:34:00 Test Item Value Reference Range Comments VANCOMYCIN RANDOM (BEAKER) (test hrzt=446) 14.0 ug/mL Reference Range: No NormalsIRON, TIBC, % SAT. (WITHOUT FERRITIN)2017-09-09 05:32 :00 Test Item Value Reference Range Comments IRON (BEAKER) (test kipe=706) 41 ug/dL 40-160 TOTAL IRON BINDING CAPACITY (BEAKER) (test 134 ug/dL 250-450 ijsg=392) IRON % SATURATION (2) (BEAKER) (test zqeb=4625) 31 % 20-55 CBC W/PLT COUNT & AUTO [id number] 05:15:00 Test Item Value Reference Range Comments WHITE BLOOD CELL COUNT (BEAKER) (test vpow=816) 15.3 K/ L 3.5-10.5 RED BLOOD CELL COUNT (BEAKER) (test xayi=778) 2.58 M/ L 3.93-5.22 HEMOGLOBIN (BEAKER) (test gkcs=179) 7.9 GM/DL 11.2-15.7 HEMATOCRIT (BEAKER) (test xagc=476) 25.7 % 34.1-44.9 MEAN CORPUSCULAR VOLUME (BEAKER) (test kgqo=452) 99.6 fL 79.4-94.8 MEAN CORPUSCULAR HEMOGLOBIN (BEAKER) (test 30.6 pg 25.6-32.2 oujk=117) MEAN CORPUSCULAR HEMOGLOBIN CONC (BEAKER) (test 30.7 GM/DL 32.2-35.5 zayd=256) RED CELL DISTRIBUTION WIDTH (BEAKER) (test 12.1 % 11.7-14.4 jxyt=132) PLATELET COUNT (BEAKER) (test zwqr=051) 330 K/CU MM 150-450 MEAN PLATELET VOLUME (BEAKER) (test myqy=776) 10.2 fL 9.4-12.3 NUCLEATED RED BLOOD CELLS (BEAKER) (test 0 /100 WBC 0-0 vwbq=418) NEUTROPHILS RELATIVE PERCENT (BEAKER) (test 84 % lvys=962) LYMPHOCYTES RELATIVE PERCENT (BEAKER) (test 7 % wlik=323) MONOCYTES RELATIVE PERCENT (BEAKER) (test 6 % npzs=479) EOSINOPHILS RELATIVE PERCENT (BEAKER) (test 1 % dkge=471) BASOPHILS RELATIVE PERCENT (BEAKER) (test 1 % xnrx=444) NEUTROPHILS ABSOLUTE COUNT (BEAKER) (test 12.80 K/ L 1.56-6.13 kdnl=902) LYMPHOCYTES ABSOLUTE COUNT (BEAKER) (test 1.10 K/ L 1.18-3.74 onvn=555) MONOCYTES ABSOLUTE COUNT (BEAKER) (test 0.98 K/ L 0.24-0.36 jhhg=148) EOSINOPHILS ABSOLUTE COUNT (BEAKER) (test 0.21 K/ L 0.04-0.36 kwmw=001) BASOPHILS ABSOLUTE COUNT (BEAKER) (test 0.07 K/ L 0.01-0.08 egdl=347) IMMATURE GRANULOCYTES-RELATIVE PERCENT (BEAKER) 1 % 0-1 (test aesc=9350) RETICULOCYTE [id number] 05:12:00 Test Item Value Reference Range Comments RETICULOCYTE COUNT PCT (BEAKER) (test esoe=436) 2.3 % 0.5-1.7 BODY FLUID CELL COUNT WITH [id number] 21:50:00 Test Item Value Reference Range Comments APPEARANCE FLUID (BEAKER) (test newy=896) Slightly Hazy Clear COLOR FLUID (BEAKER) (test woff=467) Straw Colorless, Straw RBC FLUID (BEAKER) (test dktm=461) 820 /cu mm <=1 ADJUSTED WBC FLUID (BEAKER) (test dzod=2709) 1121 /cu mm <=5 LINING CELLS (BEAKER) (test wbkm=2737) 0 /cu mm <=1 NEUTROPHILS FLUID (BEAKER) (test iofn=8862) 34 % LYMPHS FLUID (BEAKER) (test pqze=318) 5 % MONO/MACROPHAGE FLUID (BEAKER) (test 61 % emfj=132) EOSINOPHILS FLUID (BEAKER) (test xmwx=257) 0 % BASO FLUID (BEAKER) (test ddpb=852) 0 % CONTAINER BODY FLUID (BEAKER) (test EDTA Tube ihbw=7817) POCT-GLUCOSE [id number] 17:20:00 Test Item Value Reference Range Comments POC-GLUCOSE METER (BEAKER) 112 mg/dL 70-110 TESTED AT [address] (test vkrw=2705) [place] [address] POCT-GLUCOSE [id number] 16:20:00 Test Item Value Reference Range Comments POC-GLUCOSE METER (BEAKER) 125 mg/dL 70-110 TESTED AT [address] (test jmko=0813) [place] [address] POCT-GLUCOSE [id number] 12:50:00 Test Item Value Reference Range Comments POC-GLUCOSE METER (BEAKER) 132 mg/dL 70-110 TESTED AT [address] (test lrvf=0560) [place] [address] HEMOGLOBIN [id number] 09:38:00 Test Item Value Reference Range Comments HEMOGLOBIN A1C (BEAKER) (test qccu=273) 9.3 % 4.3-6.1 POCT-GLUCOSE [id number] 08:15:00 Test Item Value Reference Range Comments POC-GLUCOSE METER (BEAKER) 109 mg/dL 70-110 TESTED AT [address] (test kgjq=0941) [place] [address] BASIC METABOLIC [id number] 05:26:00 Test Item Value Reference Range Comments SODIUM (BEAKER) (test 139 meq/L 136-145 xylq=010) POTASSIUM (BEAKER) (test 4.6 meq/L 3.5-5.1 pbmm=422) CHLORIDE (BEAKER) (test 104 meq/L 98-107 kbef=504) CO2 (BEAKER) (test 17 meq/L 22-29 xeky=105) BLOOD UREA NITROGEN 51 mg/dL 7-21 (BEAKER) (test cnwc=429) CREATININE (BEAKER) (test 10.67 mg/dL 0.57-1.25 qltx=224) GLUCOSE RANDOM (BEAKER) 106 mg/dL 70-105 (test jppw=349) CALCIUM (BEAKER) (test 8.0 mg/dL 8.4-10.2 xknh=816) EGFR (BEAKER) (test 4 mL/min/1.73 sq m ESTIMATED GFR IS NOT vwsz=9422) ACCURATE CREATININE CLEARANCE IN PREDICTING GLOMERULAR FILTRATION RATE. ESTIMATED GFR IS NOT APPLICABLE FOR DIALYSIS PATIENTS. [id number] 05:24:00 Test Item Value Reference Range Comments PHOSPHORUS (BEAKER) (test yfss=112) 8.1 mg/dL 2.3-4.7 [id number] 05:24:00 Test Item Value Reference Range Comments MAGNESIUM (BEAKER) (test deid=426) 2.3 mg/dL 1.6-2.6 PTH, [id number] 05:22:00 Test Item Value Reference Range Comments PARATHYROID HORMONE INTACT (BEAKER) (test 397.3 pg/mL 8.5-72.5 vmdl=842) CBC W/PLT COUNT & AUTO [id number] 05:19:00 Test Item Value Reference Range Comments WHITE BLOOD CELL COUNT (BEAKER) (test dtun=336) 15.5 K/ L 3.5-10.5 RED BLOOD CELL COUNT (BEAKER) (test yllq=224) 2.49 M/ L 3.93-5.22 HEMOGLOBIN (BEAKER) (test nbzm=695) 7.7 GM/DL 11.2-15.7 HEMATOCRIT (BEAKER) (test ljyc=929) 24.8 % 34.1-44.9 MEAN CORPUSCULAR VOLUME (BEAKER) (test lvqd=952) 99.6 fL 79.4-94.8 MEAN CORPUSCULAR HEMOGLOBIN (BEAKER) (test 30.9 pg 25.6-32.2 ubfd=114) MEAN CORPUSCULAR HEMOGLOBIN CONC (BEAKER) (test 31.0 GM/DL 32.2-35.5 soka=638) RED CELL DISTRIBUTION WIDTH (BEAKER) (test 12.2 % 11.7-14.4 jjmm=997) PLATELET COUNT (BEAKER) (test jmbr=988) 293 K/CU MM 150-450 MEAN PLATELET VOLUME (BEAKER) (test zmzk=002) 9.9 fL 9.4-12.3 NUCLEATED RED BLOOD CELLS (BEAKER) (test 0 /100 WBC 0-0 lcpu=808) NEUTROPHILS RELATIVE PERCENT (BEAKER) (test 75 % ypks=595) LYMPHOCYTES RELATIVE PERCENT (BEAKER) (test 15 % kqre=749) MONOCYTES RELATIVE PERCENT (BEAKER) (test 7 % tirt=682) EOSINOPHILS RELATIVE PERCENT (BEAKER) (test 2 % aday=630) BASOPHILS RELATIVE PERCENT (BEAKER) (test 1 % cngk=965) NEUTROPHILS ABSOLUTE COUNT (BEAKER) (test 11.55 K/ L 1.56-6.13 rfuu=656) LYMPHOCYTES ABSOLUTE COUNT (BEAKER) (test 2.38 K/ L 1.18-3.74 aahk=661) MONOCYTES ABSOLUTE COUNT (BEAKER) (test 1.07 K/ L 0.24-0.36 zzcp=931) EOSINOPHILS ABSOLUTE COUNT (BEAKER) (test 0.30 K/ L 0.04-0.36 jjka=719) BASOPHILS ABSOLUTE COUNT (BEAKER) (test 0.07 K/ L 0.01-0.08 wwms=065) IMMATURE GRANULOCYTES-RELATIVE PERCENT (BEAKER) 1 % 0-1 (test xkbz=4066) VANCOMYCIN LEVEL, [id number] 05:12:00 Test Item Value Reference Range Comments VANCOMYCIN RANDOM (BEAKER) (test whqq=359) 17.0 ug/mL Reference Range: No NormalsPOCT-GLUCOSE [id number] 23:49:00 Test Item Value Reference Range Comments POC-GLUCOSE METER (BEAKER) 124 mg/dL 70-110 TESTED AT [facility] [address] (test kvuh=4935) [facility] [address]
--- NOTE | 2018-03-16 13:38 | RAD REPORT ---
EXAM DESCRIPTION: CT - Ct Stroke Brain Wo Cont - 03/16/2018 1:27 pm CLINICAL HISTORY: Declining state/confusion COMPARISON: October 2017 TECHNIQUE: Computed axial tomography of the head was obtained. IV contrast was not requested. All CT scans are performed using dose optimization technique as appropriate and may include automated exposure control or mA/KV adjustment according to patient size. FINDINGS: An intracranial bleed is not seen . The ventricles are normal in caliber. Mild low-density areas periventricular deep white matter may re present ischemic changes secondary to small vessel disease. No extra-axial fluid collection is noted. Chronic opacification of the left aspect of the sphenoid sinus. IMPRESSION: No acute intracranial abnormality is seen. If patient's symptoms persist MRI of the bra in would be recommended. Milan Page of the emergency Room was notified 1:30 p.m. March 16, 2018
--- NOTE | 2018-03-16 13:57 | RAD REPORT ---
EXAM DESCRIPTION: Aleksandr Single View03/16/2018 1:51 pm CLINICAL HISTORY: Shortness of breath COMPARISON: October 2017 FINDINGS: The lungs appear clear of acute infiltrate. The heart is normal size. Central venous line has its tip in the right atrium IMPRESSION: No acute abnormalities displayed
[2018-03-16 14:17] LABS: Arterial Blood Carboxyhemoglob 1.5 % (0-1.5); Blood Gas Oxyhemoglobin 91.2 % (94-97); Blood O2 Saturation 93.3 % (92-98.5)
[2018-03-16 14:53] LABS: Absolute Lymphocytes (CBC) 1.8 K/uL (0.7-4.9); Absolute Neutrophil 8.4 K/uL (1.8-8.0); Basophils % 1.1 % (0-1.3); Eosinophils % 2.2 % (0-4.4); Hematocrit 34.1 % (36.0-45.0); Lymphocytes % 15.8 % (15.3-44.8); MPV 8.4 fL (7.6-11.3); Monocytes % 8.6 % (3.3-12.3); Protime INR 1.12; RBC Red Blood Cell Count 3.67 M/uL (3.86-4.86)
[2018-03-16 15:10] LABS: Potassium 4.3 mmol/L (3.5-5.1)
--- NOTE | 2018-03-16 16:26 | EDPHYS ---
Physician Documentation [facility] Name: Gabrielle White Age: 73 yrs Sex: Female : 1945 Arrival Date: 03/16/2018 Time: 12:45 Bed 3 Private MD: ED Physician Joaquin Crespo HPI: 03/16 21:45 This 73 yrs old Female presents to ER via EMS with complaints of Drowsy. gs 21:45 The patient presents with decreased mental status. Onset: The symptoms/episode gs began/occurred acutely, just prior to arrival. Possible causes: CVA or TIA, drug use, low blood sugar, seizure. Associated signs and symptoms: Pertinent negatives: abdominal pain, chest pain. Current symptoms: In the emergency department the patient's symptoms have improved, moderately. The patient has experienced similar episodes in the past, a few times. Historical: - Allergies: 13:13 NKDA; ca1 - Home Meds: 16:15 Arginaid oral oral twice a day [Active]; ascorbic acid (vitamin C) 500 mg tab twice a aa5 day [Active]; aspirin 81 mg Oral TbEC 1 tab once daily [Active]; Bactrim DS 400-80mg once a day for 10 days. Started on 03/11/18 Oral [Active]; calcium carbonate 500 mg calcium (1,250 mg) Oral tab 2 tabs TID [Active]; clonidine HCl 0.1 mg Oral tab every 6 hours as needed for systolic BP >160 [Active]; docusate sodium 100 mg Oral cap once daily for Constipation [Active]; Dulcolax (bisacodyl) 10 mg Rectal supp daily PRN for Constipation [Active]; folic acid 1 mg Oral tab 1 tab once daily [Active]; Humalog 100 unit/mL Sub-Q soln 5 units before meals [Active]; hydromorphone 4 mg oral tab every 4 hours for Pain [Active]; Lantus 100 unit/mL Sub-Q soln 10 units subQ at bedtime [Active]; Lipitor 20 mg Oral tab 1 tab once daily [Active]; megestrol 400 mg/10 mL (40 mg/mL) Oral susp once daily for for appetite stimulant [Active]; midodrine 10 mg oral tab 2 tabs twice a day [Active]; multivitamin with minerals oral oral for for wound healing [Active]; Nephro-Dimitris Rx 1-60-300 mg-mg-mcg oral tab daily [Active]; Plavix 75 mg Oral tab 1 tab once daily [Active]; Santyl 250 unit/gram Topical oint once daily for to abdominal wound [Active]; tramadol 50 mg Oral tab every 6 hours [Active]; zinc sulfate 220 mg Oral tab daily [Active]; Zofran (as hydrochloride) 4 mg oral tab every 6 hours [Active]; - PMHx: 13:13 Anemia; CHF; Diabetes - IDDM; Dialysis; Hyperlipidemia; Hypertension; neuropathy; ca1 Pneumonia; RENAL FAILURE; 16:15 Wound to abdomen; ESBL contact precautions; aa5 - PSHx: 13:13 3 \T\ 4th toe amputated on right foot; ca1 - Immunization history:: Flu vaccine is not up to date. - Social history:: Smoking status: Patient/guardian denies using tobacco. - Ebola Screening: : No symptoms or risks identified at this time. ROS: 21:45 Unable to obtain ROS due to patient being uncooperative. gs Exam: 21:45 Head/Face: Normocephalic, atraumatic. Eyes: Pupils equal round and reactive to light, gs extra-ocular motions intact. Lids and lashes normal. Conjunctiva and sclera are non-icteric and not injected. Cornea within normal limits. Periorbital areas with no swelling, redness, or edema. ENT: Nares patent. No nasal discharge, no septal abnormalities noted. Tympanic membranes are normal and external auditory canals are clear. Oropharynx with no redness, swelling, or masses, exudates, or evidence of obstruction, uvula midline. Mucous membranes moist. Neck: Trachea midline, no thyromegaly or masses palpated, and no cervical lymphadenopathy. Supple, full range of motion without nuchal rigidity, or vertebral point tenderness. No Meningismus. Chest/axilla: Normal chest wall appearance and motion. Nontender with no deformity. No lesions are appreciated. Cardiovascular: Regular rate and rhythm with a normal S1 and S2. No gallops, murmurs, or rubs. Normal PMI, no JVD. No pulse deficits. Respiratory: Lungs have equal breath sounds bilaterally, clear to auscultation and percussion. No rales, rhonchi or wheezes noted. No increased work of breathing, no retractions or nasal flaring. Abdomen/GI: Soft, non-tender, with normal bowel sounds. No distension or tympany. No guarding or rebound. No evidence of tenderness throughout. Back: No spinal tenderness. No costovertebral tenderness. Full range of motion. Skin: Warm, dry with normal turgor. Normal color with no rashes, no lesions, and no evidence of cellulitis. MS/ Extremity: Pulses equal, no cyanosis. Neurovascular intact. Full, normal range of motion. 21:45 Constitutional: The patient appears awake. 21:45 Neuro: Orientation: to person, place, Mentation: slow to respond, somnolent, Cranial nerves: CN II- XII are normal as tested, Cerebellar function: no acute changes, Motor: moves all fours, Sensation: no obvious gross deficits. 21:50 ECG was reviewed by the Attending Physician. Vital Signs: 12:56 BP 130 / 87; Pulse 94; Resp 19; Temp 97.6(TE); Pulse Ox 98% on R/A; Weight 64.41 kg; ca1 Height 4 ft. 11 in. (149.86 cm); Pain 0/10; 13:30 BP 145 / 66; Pulse 90; Resp 19; Pulse Ox 98% on R/A; ca1 14:28 BP 142 / 69; Pulse 91; Resp 19; Pulse Ox 99% on R/A; ca1 15:30 BP 157 / 77; Pulse 79; Resp 18; Pulse Ox 100% on R/A; ca1 16:40 BP 160 / 62; Pulse 76; Resp 18; Pulse Ox 100% on R/A; ca1 17:44 BP 153 / 67; Pulse 72; Resp 18; Pulse Ox 100% on R/A; ca1 12:56 Body Mass Index 28.68 (64.41 kg, 149.86 cm) ca1 NIH Stroke Scale Scores: 21:45 NIHSS Score: 1 gs MDM: 13:17 Patient medically screened. gs 21:45 Differential Diagnosis: CVA, electrolyte abnormality, overdose, volume depletion. Data reviewed: vital signs, nurses notes. Response to treatment: the patient's symptoms have markedly improved after treatment, the patient's symptoms have resolved after treatment, and as a result, I will admit patient. ED course: no tpa no stroke on lovenox. 03/16 12:58 Order name: Glucose, Ancillary Testing; Complete Time: 13:00 EDMS 03/16 13:18 Order name: Basic Metabolic Panel; Complete Time: 15:21 gs 03/16 13:18 Order name: CBC with Diff; Complete Time: 15: gs 03/16 13:18 Order name: Protime (+inr); Complete Time: 15:21 gs 03/16 13:18 Order name: Ptt, Activated; Complete Time: 15: gs 03/16 13:18 Order name: AMMONIA; Complete Time: 15: gs 03/16 13:18 Order name: CT Stroke Brain w/o Contrast; Complete Time: 13:59 gs 03/16 13:18 Order name: Stroke CXR 1 View; Complete Time: 13:59 gs 03/16 13:18 Order name: EKG; Complete Time: 13:19 gs 03/16 13:18 Order name: Accucheck; Complete Time: 13:52 gs 03/16 13:18 Order name: Cardiac monitoring; Complete Time: 13:52 gs 03/16 13:18 Order name: EKG - Nurse/Tech; Complete Time: 14:32 gs 03/16 13:18 Order name: IV Saline Lock; Complete Time: 14:32 gs 03/16 13:18 Order name: ABG; Complete Time: 15:21 gs 03/16 13:18 Order name: Labs collected and sent; Complete Time: 14:32 gs 03/16 13:18 Order name: NPO; Complete Time: 13:52 gs 03/16 13:18 Order name: O2 Per Protocol; Complete Time: 13:52 gs 03/16 13:18 Order name: O2 Sat Monitoring; Complete Time: 13:52 gs 03/16 13:18 Order name: Stroke Swallow Screen; Complete Time: 15:12 gs EC:50 Rate is 86 beats/min. Rhythm is regular. ID interval is normal. QRS interval is normal. gs No Q waves. T waves are Flattened. Clinical impression: NSR w/ Non-specific ST/T Changes. Interpreted by me. Administered Medications: No medications were administered Point of Care Testing: Blood Glucose: 12:56 Blood Glucose: 122 mg/dL; ca1 Ranges: Critical Glucose Levels:Adult <50 mg/dl or >400 mg/dl <40 mg/dl or >180 mg/dl Disposition: 03/16/18 16:24 Hospitalization ordered by Jaimee Caal for Observation. Preliminary diagnosis are Altered mental status, unspecified, Opioid abuse with intoxication delirium. - Bed requested for Telemetry/MedSurg (observation). - Status is Observation. bp - Condition is Stable. - Problem is an acute exacerbation. - Symptoms have improved. UTI on Admission? No NIH Stroke Scale - NIH Stroke Score Date: 03/16/2018 Time: 21:45 Total Score = 1 1a. Level of Consciousness (LOC) - 1(Not Alert) 1b. Level of Consciousness (LOC) (Year \T\ Age) - 0(Both) 1c. LOC Commands (Open \T\ Closes Eyes/Alarm Signal Operator) - 0(Both) 2. Best Gaze (Lateral Gaze Paresis) - 0(Normal) 3. Visual Field Loss - 0(No visual loss) 4. Facial Palsy - 0(Normal) 5a. Left Arm: Motor (10-second hold) - 0(No drift) 5b. Right Arm: Motor (10-second hold) - 0(No drift) 6a. Left Leg: Motor (5-second hold - always test supine) - 0(No drift) 6b. Right Leg: Motor (5-second hold - always test supine) - 0(No drift) 7. Limb Ataxia (finger/nose \T\ heel/jacobo - test with eyes open) - 0(Absent) 8. Sensory Loss (pinprick arms/legs/face) - 0(Normal) 9. Best Language: Aphasia (description/naming/reading) - 0(No aphasia) 10. Dysarthria (speech clarity - read or repeat words) - 0(Normal) 11. Extinction and Inattention (visual/tactile/auditory/spatial/personal) - 0(No abnormality) Initials: Signatures: Dispatcher [employer] EDCT Gabrielle Stafford ms BarbozaGiovanna, RN RN aa5 Joaquin Crespo MD MD Maximiliano Lyman, RN RN bp Katy Casillas RN RN ca1 Corrections: (The following items were deleted from the chart) 17:32 16:24 Hospitalization Ordered by Jaimee Caal MD for Observation. Preliminary ms diagnosis is Altered mental status, unspecified; Opioid abuse with intoxication delirium. Bed requested for Telemetry/MedSurg (observation). Status is Observation. Condition is Stable. Problem is an acute exacerbation. Symptoms have improved. UTI on Admission? No. gs 18:32 17:32 03/16/2018 16:24 Hospitalization Ordered by Jaimee Caal MD for bp Observation. Preliminary diagnosis is Altered mental status, unspecified; Opioid abuse with intoxication delirium. Bed requested for Telemetry/MedSurg (observation). Status is Observation. Condition is Stable. Problem is an acute exacerbation. Symptoms have improved. UTI on Admission? No. ms
--- NOTE | 2018-03-16 16:26 | ER ---
Nurse's Notes [facility] Name: Gabrielle White Age: 73 yrs Sex: Female : 1945 Arrival Date: 03/16/2018 Time: 12:45 Bed 3 Private MD: Diagnosis: Altered mental status, unspecified;Opioid abuse with intoxication delirium Presentation: 03/16 12:56 Presenting complaint: EMS states: "patient was in Dialysis, she came in alert and ca1 oriented and talking a little Greenlandic with a nurse, when 2 hours into dialysis she stopped talking and sort of "drifted" in and out of consciousness. Which prompted them to call us". EMS reports patient was awake upon scene arrival. Transition of care: Dialysis. Patient is a resident at [facility]. Onset of symptoms was March 16, 2018 at 12:30. Risk Assessment: Do you want to hurt yourself or someone else? Patient reports no desire to harm self or others. Initial Sepsis Screen: Does the patient meet any 2 criteria? No. Patient's initial sepsis screen is negative. Does the patient have a suspected source of infection? No. Patient's initial sepsis screen is negative. Care prior to arrival: Glucose check: 108. 12:56 Method Of Arrival: EMS: [facility] ca1 12:56 Acuity: JESUS 3 ca1 Historical: - Allergies: 13:13 NKDA; ca1 - Home Meds: 16:15 Arginaid oral oral twice a day [Active]; ascorbic acid (vitamin C) 500 mg tab twice a aa5 day [Active]; aspirin 81 mg Oral TbEC 1 tab once daily [Active]; Bactrim DS 400-80mg once a day for 10 days. Started on 03/11/18 Oral [Active]; calcium carbonate 500 mg calcium (1,250 mg) Oral tab 2 tabs TID [Active]; clonidine HCl 0.1 mg Oral tab every 6 hours as needed for systolic BP >160 [Active]; docusate sodium 100 mg Oral cap once daily for Constipation [Active]; Dulcolax (bisacodyl) 10 mg Rectal supp daily PRN for Constipation [Active]; folic acid 1 mg Oral tab 1 tab once daily [Active]; Humalog 100 unit/mL Sub-Q soln 5 units before meals [Active]; hydromorphone 4 mg oral tab every 4 hours for Pain [Active]; Lantus 100 unit/mL Sub-Q soln 10 units subQ at bedtime [Active]; Lipitor 20 mg Oral tab 1 tab once daily [Active]; megestrol 400 mg/10 mL (40 mg/mL) Oral susp once daily for for appetite stimulant [Active]; midodrine 10 mg oral tab 2 tabs twice a day [Active]; multivitamin with minerals oral oral for for wound healing [Active]; Nephro-Dimitris Rx 1-60-300 mg-mg-mcg oral tab daily [Active]; Plavix 75 mg Oral tab 1 tab once daily [Active]; Santyl 250 unit/gram Topical oint once daily for to abdominal wound [Active]; tramadol 50 mg Oral tab every 6 hours [Active]; zinc sulfate 220 mg Oral tab daily [Active]; Zofran (as hydrochloride) 4 mg oral tab every 6 hours [Active]; - PMHx: 13:13 Anemia; CHF; Diabetes - IDDM; Dialysis; Hyperlipidemia; Hypertension; neuropathy; ca1 Pneumonia; RENAL FAILURE; 16:15 Wound to abdomen; ESBL contact precautions; aa5 - PSHx: 13:13 3 \\T\\ 4th toe amputated on right foot; ca1 - Immunization history:: Flu vaccine is not up to date. - Social history:: Smoking status: Patient/guardian denies using tobacco. - Ebola Screening: : No symptoms or risks identified at this time. Screenin:10 Nutritional screening: No deficits noted. Tuberculosis screening: No symptoms or risk ca1 factors identified. Fall Risk Secondary diagnosis (15 points) dementia, impaired mobility, IV access (20 points). Ambulatory Aid- None/Bed Rest/Nurse Assist (0 pts). 13:10 Abuse screen: Denies threats or abuse. Denies injuries from another. ca1 13:50 Patient has been NPO before screening. The patient is not alert, or is unable to follow ca1 commands. Bedside swallow screening discontinued. Patient kept NPO until cleared by Speech Therapy or Physician. Provider notified of bedside swallow screening results: Joaquin Crespo MD. Assessment: 13:10 General: Appears in no apparent distress. uncomfortable, ill, Behavior is drowsy. Pain: ca1 Denies pain. Pain began turns head from side to side if asked if having any pain. Neuro: Level of Consciousness is drowsy. Pt opens eyes to verbal stimuli. Patient answers appropriately to some questions. . 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 ca1 Cardiovascular: Dialysis shunt: in the anterior aspect of right upper chest. Respiratory: Airway is patent Trachea midline Respiratory effort is even, unlabored, Respiratory pattern is regular, symmetrical, Breath sounds are clear bilaterally. GI: Abdomen is. GI: Bowel sounds present X 4 quads. Abd is soft X 4 quads patient has a peritoneal dialysis access at lower abdomen. : No signs and/or symptoms were reported regarding the genitourinary system. EENT: No signs and/or symptoms were reported regarding the EENT system. Derm: Skin is fragile, Skin is normal, Skin temperature is warm. Musculoskeletal:. 14:10 Reassessment: Patient appears in no apparent distress at this time. No changes from ca1 previously documented assessment. Patient and/or family updated on plan of care and expected duration. Pain level reassessed. Daughter at bedside. Provided more patient history. 15:05 Reassessment: Patient appears in no apparent distress at this time. Neuro: Level of ca1 Consciousness is awakens to verbal stimuli. . 16:00 Reassessment: Patient appears in no apparent distress at this time. No changes from ca1 previously documented assessment. 17:05 Reassessment: Patient appears in no apparent distress at this time. No changes from ca1 previously documented assessment. 17:58 Reassessment: Patient appears in no apparent distress at this time. Daughter's informed ca1 of pt's room number and admission. Vital Signs: 12:56 BP 130 / 87; Pulse 94; Resp 19; Temp 97.6(TE); Pulse Ox 98% on R/A; Weight 64.41 kg; ca1 Height 4 ft. 11 in. (149.86 cm); Pain 0/10; 13:30 BP 145 / 66; Pulse 90; Resp 19; Pulse Ox 98% on R/A; ca1 14:28 BP 142 / 69; Pulse 91; Resp 19; Pulse Ox 99% on R/A; ca1 15:30 BP 157 / 77; Pulse 79; Resp 18; Pulse Ox 100% on R/A; ca1 16:40 BP 160 / 62; Pulse 76; Resp 18; Pulse Ox 100% on R/A; ca1 17:44 BP 153 / 67; Pulse 72; Resp 18; Pulse Ox 100% on R/A; ca1 12:56 Body Mass Index 28.68 (64.41 kg, 149.86 cm) ca1 NIH Stroke Scale Scores: 21:45 NIHSS Score: 1 ED Course: 12:45 Patient arrived in ED. bd 12:56 Katy Casillas, RN is Primary Nurse. ca1 12:56 Arm band placed on right wrist. ca1 13:00 Joaquin Crespo MD is Attending Physician. gs 13:03 Triage completed. ca1 13:07 Patient has correct armband on for positive identification. Placed in gown. Bed in low ca1 position. Call light in reach. Side rails up X2. quality assurance monitor body on. Pulse ox on. NIBP on. Warm blanket given. 13:27 CT Stroke Brain w/o Contrast In Process Unspecified. EDMS 13:51 Stroke CXR 1 View In Process Unspecified. EDMS 14:25 Initial lab(s) drawn, by me, sent to lab. Inserted saline lock: 22 gauge in right upper aa5 arm, using aseptic technique. Blood collected. 15:06 EKG done, by electrical/instrument technician. reviewed by Joaquin Crespo MD. dt2 16:24 Jaimee Caal MD is Hospitalizing Provider. gs 17:54 No provider procedures requiring assistance completed. Patient admitted, IV remains in ca1 place. Administered Medications: No medications were administered Point of Care Testing: Blood Glucose: 12:56 Blood Glucose: 122 mg/dL; ca1 Ranges: Outcome: 16:24 Decision to Hospitalize by Provider. gs 17:54 Admitted to Tele accompanied by [place], via stretcher, room 431, with chart, Report ca1 called to Baljeet Troncoso RN 17:54 Condition: stable 17:54 Instructed on the need for admit. 18:32 Patient left the ED. bp NIH Stroke Scale - NIH Stroke Score Date: 03/16/2018 Time: 21:45 Total Score = 1 1a. Level of Consciousness (LOC) - 1(Not Alert) 1b. Level of Consciousness (LOC) (Year \\T\\ Age) - 0(Both) 1c. LOC Commands (Open \\T\\ Closes Eyes/Swimming Coach Or Instructor) - 0(Both) 2. Best Gaze (Lateral Gaze Paresis) - 0(Normal) 3. Visual Field Loss - 0(No visual loss) 4. Facial Palsy - 0(Normal) 5a. Left Arm: Motor (10-second hold) - 0(No drift) 5b. Right Arm: Motor (10-second hold) - 0(No drift) 6a. Left Leg: Motor (5-second hold - always test supine) - 0(No drift) 6b. Right Leg: Motor (5-second hold - always test supine) - 0(No drift) 7. Limb Ataxia (finger/nose \\T\\ heel/jacobo - test with eyes open) - 0(Absent) 8. Sensory Loss (pinprick arms/legs/face) - 0(Normal) 9. Best Language: Aphasia (description/naming/reading) - 0(No aphasia) 10. Dysarthria (speech clarity - read or repeat words) - 0(Normal) 11. Extinction and Inattention (visual/tactile/auditory/spatial/personal) - 0(No abnormality) Initials: Signatures: Dispatcher [employer] EDGiselle Garrido Audri, GERARDO RN aa5 Joaquin Crespo MD MD Maximiliano Lyman RN RN Imelda Teresa dt2 Katy Casillas RN RN ca1 Corrections: (The following items were deleted from the chart) 15:05 13:10 GI: Bowel sounds present X 4 quads. Abd is soft X 4 quads ca1 ca1
--- NOTE | 2018-03-16 18:20 | EKG ---
Test Date: 2018-03-16 Test Time: 14:52:47 Senior Sharepoint Developer: PONCE MEASUREMENT RESULTS: Intervals: Rate: 86 AL: 130 QRSD: 82 QT: 390 QTc: 466 Roseboom: P: 65 AL: 130 QRS: 37 T: 151 INTERPRETIVE STATEMENTS: Sinus rhythm with premature supraventricular complexes T wave abnormality, consider inferior ischemia Abnormal ECG Compared to ECG 09/07/2017 15:17:53 Atrial premature complex(es) now present T-wave abnormality now present Possible ischemia now present Prolonged QT interval no longer present Electronically Signed On 03-16-18 18:19:15 CARPENTER MATE by Alexis Zamora
--- NOTE | 2018-03-16 18:27 | P.CNS ---
Date of Consult: 03/16/18 Reason for Consult: ESRD Requesting Physician: Jaimee Caal Chief Complaint: AMS History of Present Illness: 73 yo HF ESRD, DM presented to the ER from dialysis with AMS. She receives opiate therapy for chronic pain and the daughter is concerned the AMS may be related to her pain therapy. Limited HPI/ ROS from the patient due to confusion. Allergies No Known Allergies Allergy (Verified 11/12/17 23:26) Home medications list reviewed: Yes Home Medications: Calcitrol [Rocaltrol*] 0.5 mcg PO DAILY 11/12/17 Docusate Sodium 100 mg PO DAILY 11/12/17 Folic Acid 1 mg PO DAILY 11/12/17 Insulin Glargine Human [Lantus*] 6 units SQ DIRECTED 11/12/17 Melatonin [Melatonin*] 3 mg PO BEDTIME 11/12/17 Ondansetron HCl [Zofran] 4 mg PO Q6H PRN 11/12/17 Pantoprazole Sodium [Protonix] 40 mg PO BID 11/12/17 Ropinirole HCl [Requip*] 0.5 mg PO Q24H PRN 11/12/17 Sevelamer HCl [Renagel] 1,600 mg PO TID 11/12/17 Sulfamethoxazole/Trimethoprim [Bactrim Ds Tablet] 1 tab PO BID 11/12/17 Nepro Shake [Nepro*] 237 ml PO BID can 11/15/17 Sertraline [Zoloft*] 50 mg PO DAILY tab 11/15/17 Sevelamer Carbonate [Renvela*] 1,600 mg PO TIDWM tablet 11/15/17 - Past Medical/Surgical History Diabetic: Yes -: Right Foot Toe amputation x2 -: HTN -: Hyperlipidemia -: Right Knee Contusion -: IDDM -: left hand I/D August 2013 -: Pneumonia June 2014 -: nightly perineal dialysis -: Left hand infection -: Amputated Right middle toes -: Mass removed on left side of head 1994 - Family History Father Medical History: Hypertension, Diabetes Mother Medical History: Hypertension, Kidney disease Brother Medical History: Hypertension, Diabetes - Social History Smoking Status: Never smoker Alcohol use: No CD- Drugs: No Caffeine use: Yes Review of Systems 10-point ROS is otherwise unremarkable General: Weakness, Malaise Respiratory: SOB with Excertion Integumentary: Lesions Neurological: Weakness, Change in Speech Physical Examination General: In no apparent distress, Cooperative, Confused HEENT: Atraumatic Neck: Supple Respiratory: Clear to auscultation bilaterally, Normal air movement Cardiovascular: No edema, Regular rate/rhythm, No rubs Gastrointestinal: Soft and benign, Non-distended Musculoskeletal: No clubbing, No contractures Integumentary: Skin breakdown, Skin lesion, Pressure ulcer Neurological: Abnormal gait, Abnormal speech, Abnormal strength Urinary: Dialysis catheter, Other (PD Catheter) Laboratory Data (last 24 hrs) 03/16/18 14:25: PT 13.2 H, INR 1.12, APTT 19.5 L 03/16/18 14:25: WBC 11.6 H, Hgb 11.0 L, Hct 34.1 L, Plt Count 414 H 03/16/18 14:25: Sodium 140, Potassium 4.3, BUN 27 H, Creatinine 2.45 H, Glucose 102 Imagings Data: EXAM DESCRIPTION: Aleksandr Single View03/16/2018 1:51 pm CLINICAL HISTORY: Shortness of breath COMPARISON: October 2017 FINDINGS: The lungs appear clear of acute infiltrate. The heart is normal size. Central venous line has its tip in the right atrium IMPRESSION: No acute abnormalities displayed EXAM DESCRIPTION: CT - Ct Stroke Brain Wo Cont - 03/16/2018 1:27 pm CLINICAL HISTORY: Declining state/confusion COMPARISON: October 2017 TECHNIQUE: Computed axial tomography of the head was obtained. IV contrast was not requested. All CT scans are performed using dose optimization technique as appropriate and may include automated exposure control or mA/KV adjustment according to patient size. FINDINGS: An intracranial bleed is not seen . The ventricles are normal in caliber. Mild low-density areas periventricular deep white matter may represent ischemic changes secondary to small vessel disease. No extra-axial fluid collection is noted. Chronic opacification of the left aspect of the sphenoid sinus. IMPRESSION: No acute intracranial abnormality is seen. If patient's symptoms persist MRI of the brain would be recommended Conclusions/Impression: A/ ESRD on HD. HTN with CKD/ CHF. Diastolic CHF, chronic. DM II with CKD. Anemia in CKD. CAD/ PAD with left toe ulcer. Left heel pressure ulcer. Chronic nocardia infection of LE. Bilateral lower abdominal wounds. P/ Continue current POC and Medications. Caution with opiates. Arrange for acute HD. Restart home medications as indicated. Wound care as ordered. No NSAIDs. AM labs. Daily weight. Thank you kindly for the consultation. Case discussed with Dr. Caal
[2018-03-16] MEDS ORDERED: ENOXAPARIN 40 MG/0.4 ML SQ SCH (21:00)
[2018-03-16] MEDS: INSULIN -REGULAR HUMAN 50 UNIT/0.5 ML ML SQ SCH (21:00)
[2018-03-16] MEDS ORDERED: HEPARIN 10,000 UNIT/10 ML VIAL IV PRN (22:19)
[2018-03-16] MEDS ORDERED: NA CHLORIDE 0.9% 1,000 ML IV PRN (22:19)
[2018-03-16] MEDS ORDERED: MANNITOL 25% 12.5 GM/50 ML VIAL IV PRN (22:19)
[2018-03-16] MEDS ORDERED: EPOETIN ALFA 10,000 UNIT/ML VIAL IV SCH (22:30)
[2018-03-16] MEDS ORDERED: ALBUMIN HUMAN 25% 50 ML IV SCH (23:00)
[2018-03-17 04:47] LABS: Albumin 2.3 g/dL (3.4-5.0); Bilirubin Total 0.4 mg/dL (0.2-1.0); Magnesium 2.5 mg/dL (1.8-2.4); Phosphorus 3.1 mg/dL (2.5-4.9); Potassium 4.5 mmol/L (3.5-5.1); Protein, Total 7.1 g/dL (6.4-8.2)
--- NOTE | 2018-03-17 06:54 | P.HP ---
Certification for Inpatient Patient admitted to: Inpatient With expected LOS: >2 Midnights Patient will require the following post-hospital care: None Practitioner: I am a practitioner with admitting privileges, knowledge of patient current condition, hospital course, and medical plan of care. Services: Services provided to patient in accordance with Admission requirements found in Title 42 Section 412.3 of the Code of Federal Regulations Patient History Date of Service: 03/16/18 Reason for admission: AMS History of Present Illness: Patient is a 73-year-old female who is very altered. She has no family in the room with her. She has undressed herself. She has a gangrenous left toe. She also has a history of end-stage renal disease. She was admitted to the hospital because of altered mentation. The family is worried that she is taking too many her lab workup was fairly unremarkable. Her left 2nd toe appears to be gangrenous and will do blood cultures to further evaluate. The encephalopathy could be secondary to infectious etiology, medication related or organic. CT of the brain was negative-will schedule MRI in the morning if patient is more relaxed. Allergies No Known Allergies Allergy (Verified 11/12/17 23:26) Home Medications: Ascorbic Acid [Vitamin C] 500 mg PO DAILY 03/17/18 Aspirin 81 mg PO DAILY 03/17/18 Atorvastatin Calcium [Lipitor] 20 mg PO BEDTIME 03/17/18 Bisacodyl [Dulcolax] 10 mg DAILY PRN 03/17/18 Calcium Carbonate [Calcium] 1,250 mg PO TID 03/17/18 Clonidine HCl [Catapres] 0.1 mg PO Q6HR PRN 03/17/18 Clopidogrel Bisulfate [Plavix] 75 mg PO DAILY 03/17/18 Docusate [Colace Cap*] 100 mg PO DAILY PRN 03/17/18 Folic Acid 1 mg PO DAILY 03/17/18 Hydromorphone [Dilaudid] 4 mg PO Q4HR PRN 03/17/18 Insulin Glargine,Hum.rec.anlog [Lantus] 10 unit SQ BEDTIME 03/17/18 Insulin Lispro [Humalog] 5 units SQ ACHS 03/17/18 Megestrol [Megace] 400 mg PO DAILY 03/17/18 Midodrine HCl 10 mg PO BID 03/17/18 Multivitamin with Minerals [Multivitamins with Minerals] 500 mg PO DAILY Ondansetron HCl [Zofran] 4 mg PO Q6HR PRN 03/17/18 Sulfamethoxazole/Trimethoprim [Bactrim 400-80 mg Tablet] 80 mg PO DAILY Tramadol HCl [Ultram] 50 mg PO Q6HR PRN 03/17/18 Vit B Comp No.3/Folic/C/Biotin [Nephro-Dimitris Rx Tablet] 300 mg PO DAILY 03/17/18 Whey Protein/Arginine/C/E/Zinc [Arginaid Extra Liquid] 237 ml PO BID 03/17/18 Zinc Sulfate [Zinc Sulfate*] 220 mg PO DAILY 03/17/18 - Past Medical/Surgical History Has patient received pneumonia vaccine in the past: Yes Diabetic: Yes -: Right Foot Toe amputation x2 -: HTN -: Hyperlipidemia -: Right Knee Contusion -: IDDM -: left hand I/D August 2013 -: Pneumonia June 2014 -: nightly perineal dialysis -: Left hand infection -: Amputated Right middle toes -: Mass removed on left side of head 1994 - Family History Father Medical History: Hypertension, Diabetes Mother Medical History: Hypertension, Kidney disease Brother Medical History: Hypertension, Diabetes - Social History Alcohol use: No CD- Drugs: No Caffeine use: Yes Review of Systems is unable to be obtained Physical Examination - Vital Signs Temperature: 98.5 F Blood Pressure: 142/64 Pulse: 88 Respirations: 20 Pulse Ox (%): 99 - Physical Exam General: Alert, Confused, Delirious HEENT: Atraumatic, Normocephalic Neck: Supple, 2+ carotid pulse no bruit, JVD not distended, No Thyromegaly Respiratory: Clear to auscultation bilaterally, Normal air movement Cardiovascular: Regular rate/rhythm, Normal S1 S2, No murmurs Gastrointestinal: Normal bowel sounds, Soft and benign, Non-distended, No tenderness Musculoskeletal: No clubbing, No swelling, Other (Gangrenous left toe) Integumentary: Pressure ulcer (Of the left heel) Neurological: Normal tone, Sensation intact, Cranial nerves 3-12 intact, Abnormal gait, Abnormal speech, Abnormal strength Lymphatics: No axilla or inguinal lymphadenopathy - Studies Laboratory Data (last 24 hrs) 03/16/18 14:25: PT 13.2 H, INR 1.12, APTT 19.5 L 03/16/18 14:25: WBC 11.6 H, Hgb 11.0 L, Hct 34.1 L, Plt Count 414 H 03/16/18 14:25: Sodium 140, Potassium 4.3, BUN 27 H, Creatinine 2.45 H, Glucose 102 Assessment & Plan - Problems (Diagnosis) (1) Altered mental status Current Visit: Yes Status: Acute (2) Gangrene of toe of left foot Current Visit: Yes Status: Acute (3) Diabetes Current Visit: No Status: Chronic (4) ESRD (end stage renal disease) Current Visit: No Status: Chronic (5) HTN (hypertension) Current Visit: No Status: Chronic (6) Hyperlipidemia Current Visit: No Status: Chronic Qualifiers: Hyperlipidemia type: unspecified Qualified Code(s): E78.5 - Hyperlipidemia , unspecified - Plan 1. Continue with IV antibiotic 2. Continue with local wound care 3. Wound care consultation/surgical consultation/nephrology consultation along with Neurology Consult 4. Gentle IV hydration 5. Monitor CBC 6. Strict blood sugar monitoring 7. Pain control 8. GI and DVT prophylaxis - Advance Directives Does patient have a Living Will: No Does patient have a Durable POA for Healthcare: Yes - Code Status/Comfort Care Code Status Assessed: Yes Code Status: Full Code Critical Care: No Time Spent Managing PTS Care (In Minutes): 55
[2018-03-17] MEDS ORDERED: DOCUSATE NA 100 MG CAP PO PRN (07:00)
[2018-03-17] MEDS ORDERED: cloNIDine HCl 0.1 MG TAB PO PRN (07:00)
[2018-03-17] MEDS: INSULIN -REGULAR HUMAN 50 UNIT/0.5 ML ML SQ SCH ×4 (07:30→21:00)
[2018-03-17] MEDS ORDERED: VANCOMYCIN/NS 1 gm 1 GM/250 ML BAG IV SCH (07:45)
[2018-03-17] MEDS ORDERED: VANCOMYCIN 1.25 GM in NA CHLORIDE 0.9% 250 ML IVPB ONE (08:00)
[2018-03-17] MEDS ORDERED: VANCOMYCIN 1 GM in NA CHLORIDE 0.9% 500 ML IVPB SCH (09:00)
[2018-03-17] MEDS: PIPER/TAZO/NS 2.25gm 2.25 GM/50 ML BAG IVPB SCH ×3 (10:31→23:42)
[2018-03-17] MEDS: CLOPIDOGREL 75 MG TABLET PO SCH (10:32)
[2018-03-17] MEDS: HEPARIN 5000 UNIT/ML 1 ML VIAL SQ SCH ×2 (10:32→21:00)
[2018-03-17 11:35] LABS: Absolute Lymphocytes (CBC) 2.5 K/uL (0.7-4.9); Absolute Monocytes 1.1 K/uL (0.1-1.3); Absolute Neutrophil 9.5 K/uL (1.8-8.0); Hematocrit 32.8 % (36.0-45.0); Lymphocytes % 18.2 % (15.3-44.8); MPV 8.3 fL (7.6-11.3); Monocytes % 7.8 % (3.3-12.3); RBC Red Blood Cell Count 3.47 M/uL (3.86-4.86)
[2018-03-17 11:55] LABS: Magnesium 2.5 mg/dL (1.8-2.4); Phosphorus 3.2 mg/dL (2.5-4.9); Potassium 4.5 mmol/L (3.5-5.1); Thyroid Stimulating Hormone 0.436 uIU/mL (0.360-3.740)
--- NOTE | 2018-03-17 18:49 | P.PN ---
Subjective Date of Service: 03/19/18 Chief Complaint: AMS Physical Examination - Vital Signs Temperature: 98.3 F Blood Pressure: 136/58 Pulse: 91 Respirations: 16 Pulse Ox (%): 100 Assessment And Plan - Plan (1) Altered mental status Current Visit: Yes Status: Acute (2) Gangrene of toe of left foot Current Visit: Yes Status: Acute (3) Diabetes Current Visit: No Status: Chronic (4) ESRD (end stage renal disease) Current Visit: No Status: Chronic (5) HTN (hypertension) Current Visit: No Status: Chronic (6) Hyperlipidemia Current Visit: No Status: Chronic Qualifiers: Hyperlipidemia type: unspecified Qualified Code(s): E78.5 - Hyperlipidemia , unspecified - Plan 1. Continue with IV antibiotic 2. Continue with local wound care 3. Wound care consultation/surgical consultation/nephrology consultation along with Neurology Consult 4. Gentle IV hydration 5. Monitor CBC 6. Strict blood sugar monitoring 7. Pain control 8. GI and DVT prophylaxis
[2018-03-17] MEDS: ACETAMINOPHEN 500 MG TAB PO PRN (19:28)
--- NOTE | 2018-03-17 20:54 | P.PN ---
Date of Service: 03/17/18 Vital Signs Temp Pulse Resp BP Pulse Ox 98.3 F 91 H 16 136/58 L 100 03/17/18 18:49 03/17/18 18:49 03/17/18 18:49 03/17/18 18:49 03/17/18 18:49 Medications Acetaminophen (Tylenol -Extra Strength) 500 mg PO Q4HP PRN PRN Reason: [id number] Stop: 04/15/18 18:22 Last Admin: 03/17/18 19:28 Dose: 500 mg Clonidine HCl (Catapres) 0.1 mg PO Q6HR PRN PRN Reason: HIGH BP Stop: 04/16/18 07:01 Clopidogrel Bisulfate (Plavix) 75 mg PO DAILY JACQUELINE Stop: 04/16/18 09:01 Last Admin: 03/17/18 10:32 Dose: 75 mg Docusate Sodium (Colace Cap) 100 mg PO DAILY PRN PRN Reason: CONSTIPATION Stop: 04/16/18 07:01 Epoetin Gentry (Procrit) 10,000 unit IV EVERY HD JACQUELINE Stop: 04/15/18 22:31 Heparin Sodium (Porcine) (Heparin 5,000 Units/Ml) 5,000 unit SQ Q12HR JACQUELINE Stop: 04/16/18 09:01 Last Admin: 03/17/18 10:32 Dose: 5,000 unit Heparin Sodium (Porcine) (Heparin 1,000 Units/Ml) 6,000 unit IV EVERY HD PRN PRN Reason: FLUSH AFTER EACH USE Stop: 04/15/18 22:20 Albumin Human (Albumin 25%) 50 mls @ 100 mls/hr IV EVERY HD JACQUELINE Stop: 04/15/18 23:01 Piperacillin/Tazobactam/Sod Chloride (Zosyn 2.25 Gm/50 Ml Ivpb) 2.25 gm in 50 mls @ 100 mls/hr IVPB Q8HR JACQUELINE; Protocol Stop: 04/16/18 09:01 Last Admin: 03/17/18 17:30 Dose: 50 mls Vancomycin HCl (Vancomycin 1 Gm/250 Ml Ns Ivpb) 1 gm in 250 mls @ 150 mls/hr IV AFTER EACH DIALYSIS JACQUELINE Stop: 04/16/18 07:46 Insulin Glargine (Lantus) 10 units SQ BEDTIME JACQUELINE Stop: 04/16/18 21:01 Insulin Human Regular (Novolin -R) 0 unit SQ ACHS JACQUELINE; Protocol Stop: 04/15/18 21:01 Last Admin: 03/17/18 16:30 Dose: Not Given Mannitol (Mannitol 12.5 Gm/50 Ml Vial) 12.5 gm IV EVERY HD PRN PRN Reason: BP support at hemodialysis Stop: 04/15/18 22:20 Sodium Chloride (Normal Saline Flush) 10 ml IV BID JACQUELINE Stop: 04/15/18 21:01 Last Admin: 03/17/18 10:32 Dose: 10 ml Assessment/ Plan: Nephrology CPS stable without CP or SOB. No acute events overnight. Limited IH/ ROS due to dementia. Vitals, medications, blood work and imaging reviewed in the chart. Physical Examination General: In no apparent distress, Cooperative, Confused HEENT: Atraumatic Neck: Supple Respiratory: Clear to auscultation bilaterally, Normal air movement Cardiovascular: No edema, Regular rate/rhythm, No rubs Gastrointestinal: Soft and benign, Non-distended Musculoskeletal: No clubbing, No contractures Integumentary: Skin breakdown, Skin lesion, Pressure ulcer Neurological: Abnormal gait, Abnormal speech, Abnormal strength Urinary: Dialysis catheter, Other (PD Catheter) Laboratory Data (last 24 hrs) 03/16/18 14:25: PT 13.2 H, INR 1.12, APTT 19.5 L 03/16/18 14:25: WBC 11.6 H, Hgb 11.0 L, Hct 34.1 L, Plt Count 414 H 03/16/18 14:25: Sodium 140, Potassium 4.3, BUN 27 H, Creatinine 2.45 H, Glucose 102 Imagings Data: EXAM DESCRIPTION: Terryt Single View03/16/2018 1:51 pm CLINICAL HISTORY: Shortness of breath COMPARISON: October 2017 FINDINGS: The lungs appear clear of acute infiltrate. The heart is normal size. Central venous line has its tip in the right atrium IMPRESSION: No acute abnormalities displayed EXAM DESCRIPTION: CT - Ct Stroke Brain Wo Cont - 03/16/2018 1:27 pm CLINICAL HISTORY: Declining state/confusion COMPARISON: October 2017 TECHNIQUE: Computed axial tomography of the head was obtained. IV contrast was not requested. All CT scans are performed using dose optimization technique as appropriate and may include automated exposure control or mA/KV adjustment according to patient size. FINDINGS: An intracranial bleed is not seen . The ventricles are normal in caliber. Mild low-density areas periventricular deep white matter may represent ischemic changes secondary to small vessel disease. No extra-axial fluid collection is noted. Chronic opacification of the left aspect of the sphenoid sinus. IMPRESSION: No acute intracranial abnormality is seen. If patient's symptoms persist MRI of the brain would be recommended Conclusions/Impression: A/ ESRD on HD. HTN with CKD/ CHF. Diastolic CHF, chronic. DM II with CKD. Anemia in CKD. CAD/ PAD with left toe ulcer. Left heel pressure ulcer. Chronic nocardia infection of LE. Bilateral lower abdominal wounds. P/ Continue current POC and Medications. Caution with opiates. HD as ordered. Currently on Abx; follow up cultures. Wound care as ordered. No NSAIDs. AM labs. Daily weight.
[2018-03-17] MEDS: INSULIN GLARGINE 100 UNITS/ML SQ SCH (21:00)
[2018-03-18] MEDS: ACETAMINOPHEN 500 MG TAB PO PRN ×2 (02:52→19:43)
[2018-03-18] MEDS ORDERED: LORazepam 2 MG/ML VIAL IV ONE (03:32)
[2018-03-18 06:08] LABS: Absolute Lymphocytes (CBC) 2.1 K/uL (0.7-4.9); Absolute Monocytes 1.1 K/uL (0.1-1.3); Basophils % 0.9 % (0-1.3); Eosinophils % 3.6 % (0-4.4); Lymphocytes % 17.9 % (15.3-44.8); MPV 8.2 fL (7.6-11.3); Monocytes % 9.3 % (3.3-12.3); RBC Red Blood Cell Count 3.11 M/uL (3.86-4.86)
[2018-03-18 06:15] LABS: Potassium 3.9 mmol/L (3.5-5.1)
[2018-03-18] MEDS: INSULIN -REGULAR HUMAN 50 UNIT/0.5 ML ML SQ SCH ×4 (07:30→21:00)
[2018-03-18] MEDS: CLOPIDOGREL 75 MG TABLET PO SCH (10:19)
[2018-03-18] MEDS: PIPER/TAZO/NS 2.25gm 2.25 GM/50 ML BAG IVPB SCH ×2 (10:19→17:41)
[2018-03-18] MEDS: HEPARIN 5000 UNIT/ML 1 ML VIAL SQ SCH ×2 (10:20→22:10)
[2018-03-18] MEDS: ACETIC ACID 0.25% IRRIG IRR SCH (15:14)
--- NOTE | 2018-03-18 20:28 | P.PN ---
Date of Service: 03/18/18 Vital Signs Temp Pulse Resp BP Pulse Ox 98.0 F 101 H 18 138/64 100 03/18/18 16:00 03/18/18 16:00 03/18/18 16:00 03/18/18 16:00 03/18/18 16:00 Medications Acetaminophen (Tylenol -Extra Strength) 500 mg PO Q4HP PRN PRN Reason: [id number] Stop: 04/15/18 18:22 Last Admin: 03/18/18 19:43 Dose: 500 mg Acetic Acid (Acetic Acid 0.25%) 1,000 ml IRR DAILY JACQUELINE Stop: 04/18/18 09:01 Last Admin: 03/18/18 15:14 Dose: 1,000 ml Clonidine HCl (Catapres) 0.1 mg PO Q6HR PRN PRN Reason: HIGH BP Stop: 04/16/18 07:01 Clopidogrel Bisulfate (Plavix) 75 mg PO DAILY JACQUELINE Stop: 04/16/18 09:01 Last Admin: 03/18/18 10:19 Dose: 75 mg Docusate Sodium (Colace Cap) 100 mg PO DAILY PRN PRN Reason: CONSTIPATION Stop: 04/16/18 07:01 Epoetin Gentry (Procrit) 10,000 unit IV EVERY HD JACQUELINE Stop: 04/15/18 22:31 Heparin Sodium (Porcine) (Heparin 5,000 Units/Ml) 5,000 unit SQ Q12HR JACQUELINE Stop: 04/16/18 09:01 Last Admin: 03/18/18 10:20 Dose: 5,000 unit Heparin Sodium (Porcine) (Heparin 1,000 Units/Ml) 6,000 unit IV EVERY HD PRN PRN Reason: FLUSH AFTER EACH USE Stop: 04/15/18 22:20 Albumin Human (Albumin 25%) 50 mls @ 100 mls/hr IV EVERY HD JACQUELINE Stop: 04/15/18 23:01 Piperacillin/Tazobactam/Sod Chloride (Zosyn 2.25 Gm/50 Ml Ivpb) 2.25 gm in 50 mls @ 100 mls/hr IVPB Q8HR JACQUELINE; Protocol Stop: 04/16/18 09:01 Last Admin: 03/18/18 17:41 Dose: 50 mls Vancomycin HCl (Vancomycin 1 Gm/250 Ml Ns Ivpb) 1 gm in 250 mls @ 150 mls/hr IV AFTER EACH DIALYSIS [facility] Stop: 04/16/18 07:46 Insulin Glargine (Lantus) 10 units SQ BEDTIME JACQUELINE Stop: 04/16/18 21:01 Last Admin: 03/17/18 21:00 Dose: Not Given Insulin Human Regular (Novolin -R) 0 unit SQ ACHS JACQUELINE; Protocol Stop: 04/15/18 21:01 Last Admin: 03/18/18 16:30 Dose: Not Given Mannitol (Mannitol 12.5 Gm/50 Ml Vial) 12.5 gm IV EVERY HD PRN PRN Reason: BP support at hemodialysis Stop: 04/15/18 22:20 Sodium Chloride (Normal Saline Flush) 10 ml IV BID JACQUELINE Stop: 04/15/18 21:01 Last Admin: 03/18/18 10:20 Dose: 10 ml Assessment/ Plan: Nephrology CPS stable without CP or SOB. No acute events overnight. Limited IH/ ROS due to dementia. Vitals, medications, blood work and imaging reviewed in the chart. Physical Examination General: In no apparent distress, Cooperative, Confused HEENT: Atraumatic Neck: Supple Respiratory: Clear to auscultation bilaterally, Normal air movement Cardiovascular: No edema, Regular rate/rhythm, No rubs Gastrointestinal: Soft and benign, Non-distended Musculoskeletal: No clubbing, No contractures Integumentary: Skin breakdown, Skin lesion, Pressure ulcer Neurological: Abnormal gait, Abnormal speech, Abnormal strength Urinary: Dialysis catheter, Other (PD Catheter) Laboratory Data (last 24 hrs) 03/16/18 14:25: PT 13.2 H, INR 1.12, APTT 19.5 L 03/16/18 14:25: WBC 11.6 H, Hgb 11.0 L, Hct 34.1 L, Plt Count 414 H 03/16/18 14:25: Sodium 140, Potassium 4.3, BUN 27 H, Creatinine 2.45 H, Glucose 102 Imagings Data: EXAM DESCRIPTION: Aleksandr Single View03/16/2018 1:51 pm CLINICAL HISTORY: Shortness of breath COMPARISON: October 2017 FINDINGS: The lungs appear clear of acute infiltrate. The heart is normal size. Central venous line has its tip in the right atrium IMPRESSION: No acute abnormalities displayed EXAM DESCRIPTION: CT - Ct Stroke Brain Wo Cont - 03/16/2018 1:27 pm CLINICAL HISTORY: Declining state/confusion COMPARISON: October 2017 TECHNIQUE: Computed axial tomography of the head was obtained. IV contrast was not requested. All CT scans are performed using dose optimization technique as appropriate and may include automated exposure control or mA/KV adjustment according to patient size. FINDINGS: An intracranial bleed is not seen . The ventricles are normal in caliber. Mild low-density areas periventricular deep white matter may represent ischemic changes secondary to small vessel disease. No extra-axial fluid collection is noted. Chronic opacification of the left aspect of the sphenoid sinus. IMPRESSION: No acute intracranial abnormality is seen. If patient's symptoms persist MRI of the brain would be recommended Conclusions/Impression: A/ ESRD on HD. HTN with CKD/ CHF. Diastolic CHF, chronic. DM II with CKD. Anemia in CKD. CAD/ PAD with left toe ulcer. Left heel pressure ulcer. Chronic nocardia infection of LE. Bilateral lower abdominal wounds. P/ Continue current POC and Medications. Caution with opiates. HD as ordered. Currently on Abx; follow up cultures. Wound care as ordered. No NSAIDs. AM labs. Daily weight.
[2018-03-18] MEDS: INSULIN GLARGINE 100 UNITS/ML SQ SCH (21:00)
[2018-03-19] MEDS: PIPER/TAZO/NS 2.25gm 2.25 GM/50 ML BAG IVPB SCH ×3 (01:50→17:35)
[2018-03-19] MEDS: ACETAMINOPHEN 500 MG TAB PO PRN ×4 (01:52→20:05)
[2018-03-19 06:53] LABS: Magnesium 2.3 mg/dL (1.8-2.4); Phosphorus 2.3 mg/dL (2.5-4.9); Potassium 4.1 mmol/L (3.5-5.1)
[2018-03-19] MEDS: INSULIN -REGULAR HUMAN 50 UNIT/0.5 ML ML SQ SCH ×4 (07:30→21:00)
[2018-03-19] MEDS: POTASS/SODIUM PHOSPHATE 1 PKT POWD.PACK PO SCH ×3 (08:00→10:00)
[2018-03-19] MEDS: HEPARIN 5000 UNIT/ML 1 ML VIAL SQ SCH ×2 (09:09→22:43)
[2018-03-19] MEDS: CLOPIDOGREL 75 MG TABLET PO SCH (09:10)
[2018-03-19] MEDS: ACETIC ACID 0.25% IRRIG IRR SCH (15:18)
--- NOTE | 2018-03-19 17:34 | P.PN ---
Subjective Date of Service: 03/19/18 Chief Complaint: AMS Subjective: No new changes Review of Systems 10-point ROS is otherwise unremarkable Physical Examination - Vital Signs Temperature: 98.3 F Blood Pressure: 136/58 Pulse: 91 Respirations: 16 Pulse Ox (%): 100 - Physical Exam General: In no apparent distress, Confused HEENT: Atraumatic, PERRLA, EOMI Gastrointestinal: Other (Wound noted on abdomen) Musculoskeletal: Other (Dry gangrene bilateral feet) - Studies Laboratory Data (last 24 hrs) 03/19/18 05:57: Sodium 138, Potassium 4.1, BUN 26 H, Creatinine 3.12 H D, Glucose 83, Phosphorus 2.3 L, Magnesium 2.3 Microbiology Data (last 24 hrs): 03/17/18 06:30 Wound - Abdomen Gram Stain - Final Assessment And Plan - Plan (1) Altered mental status Current Visit: Yes Status: Acute (2) Gangrene of toe of left foot Current Visit: Yes Status: Acute (3) Diabetes Current Visit: No Status: Chronic (4) ESRD (end stage renal disease) Current Visit: No Status: Chronic (5) HTN (hypertension) Current Visit: No Status: Chronic (6) Hyperlipidemia Current Visit: No Status: Chronic Qualifiers: Hyperlipidemia type: unspecified Qualified Code(s): E78.5 - Hyperlipidemia , unspecified - Plan 1. Continue with IV antibiotic 2. Continue with local wound care 3. Wound care consultation/surgical consultation/nephrology consultation along with Neurology Consult 4. Gentle IV hydration 5. Monitor CBC 6. Strict blood sugar monitoring 7. Pain control 8. GI and DVT prophylaxis
--- NOTE | 2018-03-19 20:09 | P.PN ---
Date of Service: 03/19/18 Vital Signs Temp Pulse Resp BP Pulse Ox 98.3 F 91 H 16 136/58 L 100 03/19/18 17:34 03/19/18 17:34 03/19/18 17:34 03/19/18 17:34 03/19/18 17:34 Medications Acetaminophen (Tylenol -Extra Strength) 500 mg PO Q4HP PRN PRN Reason: [id number] Stop: 04/15/18 18:22 Last Admin: 03/19/18 15:14 Dose: 500 mg Acetic Acid (Acetic Acid 0.25%) 1,000 ml IRR DAILY JACQUELINE Stop: 04/18/18 09:01 Last Admin: 03/19/18 15:18 Dose: 1,000 ml Clonidine HCl (Catapres) 0.1 mg PO Q6HR PRN PRN Reason: HIGH BP Stop: 04/16/18 07:01 Clopidogrel Bisulfate (Plavix) 75 mg PO DAILY JACQUELINE Stop: 04/16/18 09:01 Last Admin: 03/19/18 09:10 Dose: 75 mg Docusate Sodium (Colace Cap) 100 mg PO DAILY PRN PRN Reason: CONSTIPATION Stop: 04/16/18 07:01 Epoetin Gentry (Procrit) 10,000 unit IV EVERY HD JACQUELINE Stop: 04/15/18 22:31 Heparin Sodium (Porcine) (Heparin 5,000 Units/Ml) 5,000 unit SQ Q12HR JACQUELINE Stop: 04/16/18 09:01 Last Admin: 03/19/18 09:09 Dose: 5,000 unit Heparin Sodium (Porcine) (Heparin 1,000 Units/Ml) 6,000 unit IV EVERY HD PRN PRN Reason: FLUSH AFTER EACH USE Stop: 04/15/18 22:20 Albumin Human (Albumin 25%) 50 mls @ 100 mls/hr IV EVERY HD JACQUELINE Stop: 04/15/18 23:01 Piperacillin/Tazobactam/Sod Chloride (Zosyn 2.25 Gm/50 Ml Ivpb) 2.25 gm in 50 mls @ 100 mls/hr IVPB Q8HR JACQUELINE; Protocol Stop: 04/16/18 09:01 Last Admin: 03/19/18 17:35 Dose: 50 mls Vancomycin HCl (Vancomycin 1 Gm/250 Ml Ns Ivpb) 1 gm in 250 mls @ 150 mls/hr IV AFTER EACH DIALYSIS [facility] Stop: 04/16/18 07:46 Insulin Glargine (Lantus) 10 units SQ BEDTIME JACQUELINE Stop: 04/16/18 21:01 Last Admin: 03/18/18 21:00 Dose: Not Given Insulin Human Regular (Novolin -R) 0 unit SQ ACHS [facility]; Protocol Stop: 04/15/18 21:01 Last Admin: 03/19/18 16:30 Dose: Not Given Mannitol (Mannitol 12.5 Gm/50 Ml Vial) 12.5 gm IV EVERY HD PRN PRN Reason: BP support at hemodialysis Stop: 04/15/18 22:20 Sodium Chloride (Normal Saline Flush) 10 ml IV BID JACQUELINE Stop: 04/15/18 21:01 Last Admin: 03/19/18 09:09 Dose: 10 ml Lab Results (last 24 hrs) 03/19/18 08:09: POC Glucose 94 03/19/18 05:57: Sodium 138, Potassium 4.1, Chloride 105, Carbon Dioxide 25, BUN 26 H, Creatinine 3.12 H D, Estimated GFR 15 L, Glucose 83, Calcium 9.1, Phosphorus 2.3 L, Magnesium 2.3 03/18/18 20:27: POC Glucose 117 Microbiology Results 03/17/18 06:30 Wound - Abdomen Gram Stain - Final 03/17/18 06:30 Wound - Abdomen Culture & Sensitivity - Preliminary 03/17/18 08:13 Blood - Blood Aerobic Blood Culture - Preliminary No growth in 24 hours. 03/17/18 08:13 Blood - Blood Anaerobic Blood Culture - Final 03/17/18 07:54 Blood - Blood Aerobic Blood Culture - Preliminary No growth in 24 hours. 03/17/18 07:54 Blood - Blood Anaerobic Blood Culture - Final Assessment/ Plan: Nephrology CPS stable without CP or SOB. No acute events overnight. Limited IH/ ROS due to dementia. Reports severe left foot pain. Vitals, medications, blood work and imaging reviewed in the chart. Physical Examination General: In no apparent distress, Cooperative, Confused HEENT: Atraumatic Neck: Supple Respiratory: Clear to auscultation bilaterally, Normal air movement Cardiovascular: No edema, Regular rate/rhythm, No rubs Gastrointestinal: Soft and benign, Non-distended Musculoskeletal: No clubbing, No contractures Integumentary: Skin breakdown, Skin lesion, Pressure ulcer Neurological: Abnormal gait, Abnormal speech, Abnormal strength Urinary: Dialysis catheter, Other (PD Catheter) Laboratory Data (last 24 hrs) 03/16/18 14:25: PT 13.2 H, INR 1.12, APTT 19.5 L 03/16/18 14:25: WBC 11.6 H, Hgb 11.0 L, Hct 34.1 L, Plt Count 414 H 03/16/18 14:25: Sodium 140, Potassium 4.3, BUN 27 H, Creatinine 2.45 H, Glucose 102 Imagings Data: EXAM DESCRIPTION: Aleksandr Single View03/16/2018 1:51 pm CLINICAL HISTORY: Shortness of breath COMPARISON: October 2017 FINDINGS: The lungs appear clear of acute infiltrate. The heart is normal size. Central venous line has its tip in the right atrium IMPRESSION: No acute abnormalities displayed EXAM DESCRIPTION: CT - Ct Stroke Brain Wo Cont - 03/16/2018 1:27 pm CLINICAL HISTORY: Declining state/confusion COMPARISON: October 2017 TECHNIQUE: Computed axial tomography of the head was obtained. IV contrast was not requested. All CT scans are performed using dose optimization technique as appropriate and may include automated exposure control or mA/KV adjustment according to patient size. FINDINGS: An intracranial bleed is not seen . The ventricles are normal in caliber. Mild low-density areas periventricular deep white matter may represent ischemic changes secondary to small vessel disease. No extra-axial fluid collection is noted. Chronic opacification of the left aspect of the sphenoid sinus. IMPRESSION: No acute intracranial abnormality is seen. If patient's symptoms persist MRI of the brain would be recommended Conclusions/Impression: A/ ESRD on HD. HTN with CKD/ CHF. Diastolic CHF, chronic. DM II with CKD. Anemia in CKD. CAD/ PAD with left toe ulcer. Left heel pressure ulcer. Chronic nocardia infection of LE. Bilateral lower abdominal wounds. P/ Continue current POC and Medications. Caution with opiates due to AMS. HD as ordered. Currently on Abx; follow up cultures. Wound care as ordered. No NSAIDs. AM labs. Daily weight.
[2018-03-19] MEDS: INSULIN GLARGINE 100 UNITS/ML SQ SCH (21:00)
[2018-03-19] MEDS ORDERED: NA CHLORIDE 0.9% 250 ML ONE (22:37)
[2018-03-19] MEDS ORDERED: VANCOMYCIN 1 GM/VIAL ONE (22:37)
[2018-03-20] MEDS: PIPER/TAZO/NS 2.25gm 2.25 GM/50 ML BAG IVPB SCH ×3 (01:37→17:00)
[2018-03-20] MEDS: ACETAMINOPHEN 500 MG TAB PO PRN ×4 (01:44→20:35)
[2018-03-20 06:13] LABS: Phosphorus 1.6 mg/dL (2.5-4.9); Potassium 3.7 mmol/L (3.5-5.1)
[2018-03-20] MEDS: INSULIN -REGULAR HUMAN 50 UNIT/0.5 ML ML SQ SCH ×4 (07:30→20:34)
[2018-03-20] MEDS ORDERED: POTASS/SODIUM PHOSPHATE 1 PKT POWD.PACK PO SCH (08:00)
[2018-03-20] MEDS: POTASS/SODIUM PHOSPHATE 1 PKT POWD.PACK PO SCH ×3 (08:59→11:52)
[2018-03-20] MEDS: HEPARIN 5000 UNIT/ML 1 ML VIAL SQ SCH ×2 (08:59→20:32)
[2018-03-20] MEDS: CLOPIDOGREL 75 MG TABLET PO SCH (08:59)
[2018-03-20] MEDS: ACETIC ACID 0.25% IRRIG IRR SCH (09:02)
--- NOTE | 2018-03-20 14:55 | P.PN ---
Subjective Date of Service: 03/20/18 Chief Complaint: AMS patient seen examined. vs stable. lungs cta cvs rrr abd: wounds look cleanly dressed/some drainage. ext: no edema. feet cleanly dressed b/l a/p esrd/htn/right perm cath/infected abd wounds/pvd (hx of angioplasty) with lower ext poor perfusion/poor function...mainly bed bound: poor/guarded [facility] prognosis. iv abx as per primary team. fall and back precautions and pain control. under care with Dr. Baeza for abd wounds. no need for acute hd. anticipate next hd on thursday. Physical Examination - Vital Signs Temperature: 98.7 F Blood Pressure: 152/68 Pulse: 119 Respirations: 20 Pulse Ox (%): 99 - Studies Microbiology Data (last 24 hrs): 03/17/18 06:30 Wound - Abdomen Gram Stain - Final 03/17/18 06:30 Wound - Abdomen Culture & Sensitivity - Final Klebsiella Pneumoniae Proteus Mirabilis
[2018-03-20] MEDS ORDERED: Gentamicin Inj 80 MG in NA CHLORIDE 0.9% 100 ML IVPB SCH (18:00)
[2018-03-20] MEDS: Meropenem 500 MG in NA CHLORIDE 0.9% 100 ML IV SCH (18:20)
--- NOTE | 2018-03-20 18:46 | P.PN ---
Subjective Date of Service: 03/21/18 Chief Complaint: AMS Patient seen and examined at bedside. Daughter at bedside. Chart reviewed and case discussed with nursing staff. Patient seems to be a little bit more awake, though has bouts of intermittent confusion. Also complaining of pain everywhere, worse in bilateral lower extremity. Review of Systems 10-point ROS is otherwise unremarkable Physical Examination - Vital Signs Temperature: 98.3 F Blood Pressure: 146/68 Pulse: 118 Respirations: 18 Pulse Ox (%): 100 - Physical Exam General: Oriented x1, Mild distress, Moderate distress, Confused HEENT: Atraumatic, PERRLA, EOMI Neck: Supple, JVD not distended Respiratory: Clear to auscultation bilaterally, Normal air movement Cardiovascular: Regular rate/rhythm, Normal S1 S2 Gastrointestinal: Normal bowel sounds, No tenderness Musculoskeletal: No tenderness Integumentary: Other (Wound noted on the lower abdomen; bilateral lower extremity dry gangrene like lesion) Neurological: Normal speech, Normal tone, Normal affect Lymphatics: No axilla or inguinal lymphadenopathy - Studies Microbiology Data (last 24 hrs): 03/17/18 06:30 Wound - Abdomen Gram Stain - Final 03/17/18 06:30 Wound - Abdomen Culture & Sensitivity - Final Klebsiella Pneumoniae Proteus Mirabilis Assessment And Plan - Plan (1) Altered mental status Improving mentation. Per daughter, she has almost back to her baseline. (2) Gangrene of toe of left foot (3) wound on the abdomen (4) abdominal wound culture positive for ESBL Proteus mirabilis (5) abdominal wound culture positive for carbapenemase resistant Enterobaceteracie (Klebsiella Pneumonia) Wound care on board, wet to dry dressings per instructions General surgery consulted, recommendations appreciated Extensively discussed risks versus benefits of starting patient on gentamicin and meropenem to cover the above resistant bacteria. Risks do include include, but not limited to further damage to the kidneys and worsening kidney function Daughter agrees, she would like to have the antibiotics started (5) Diabetes Accu-Cheks, mild sliding scale insulin. Continue to monitor and adjust as needed (6) ESRD (end stage renal disease) Nephrology consulted Patient to continue her regular hemodialysis schedule. (7) HTN (hypertension) Continue home medications (8) Hyperlipidemia Continue home medications Disposition: Had a very long conversation with daughter regarding goals of care. Explained in detail the extent of the wound on abdomen along with gangrene. Daughter thinks that mother is suffering follow at as she has been through a lot, has a history of calciphylaxis, worsening kidney function, worsening mentation. Daughter does not know what options she has. Discussed different options, including hospice for comfort care. Daughter very much interested in the hospice as a she thinks this may help her mother not suffer as much. Will have social work consulted, to set up a hospice meeting for further information with daughter. DVT prophylaxis: Lovenox GI prophylaxis: None Diet: Renal Disposition: Pending symptomatic improvement. Pending discharge planning
[2018-03-20] MEDS ORDERED: Gentamicin Inj 120 MG in NA CHLORIDE 0.9% 100 ML IV SCH (20:00)
[2018-03-20] MEDS: INSULIN GLARGINE 100 UNITS/ML SQ SCH (20:34)
[2018-03-21] MEDS: ACETAMINOPHEN 500 MG TAB PO PRN ×2 (00:21→10:15)
[2018-03-21] MEDS ORDERED: MORPHINE 2 MG/ML SYR IV PRN (01:09)
[2018-03-21] MEDS ORDERED: MORPHINE 4 MG/ML SYR ONE (01:44)
[2018-03-21] MEDS: Meropenem 500 MG in NA CHLORIDE 0.9% 100 ML IV SCH ×2 (05:05→17:23)
[2018-03-21 06:15] LABS: Phosphorus 2.8 mg/dL (2.5-4.9); Potassium 4.5 mmol/L (3.5-5.1)
[2018-03-21] MEDS: INSULIN -REGULAR HUMAN 50 UNIT/0.5 ML ML SQ SCH ×4 (07:30→21:00)
[2018-03-21] MEDS: CLOPIDOGREL 75 MG TABLET PO SCH (08:46)
[2018-03-21] MEDS: ACETIC ACID 0.25% IRRIG IRR SCH (08:47)
[2018-03-21] MEDS: HEPARIN 5000 UNIT/ML 1 ML VIAL SQ SCH ×2 (08:54→22:07)
[2018-03-21] MEDS: MORPHINE 4 MG/ML SYR IV PRN ×2 (10:55→17:24)
--- NOTE | 2018-03-21 13:17 | P.PN ---
Subjective Date of Service: 03/21/18 Chief Complaint: AMS Subjective: No new changes Patient seen and examined at bedside. Daughter at bedside. Chart reviewed and case discussed with nursing staff. Patient seems to be a little bit more awake, though has bouts of intermittent confusion. Also complaining of pain everywhere, worse in bilateral lower extremity. Review of Systems 10-point ROS is otherwise unremarkable Physical Examination - Vital Signs Temperature: 98.3 F Blood Pressure: 146/68 Pulse: 118 Respirations: 18 Pulse Ox (%): 100 - Physical Exam General: Oriented x1, Mild distress, Moderate distress, Confused HEENT: Atraumatic, PERRLA, EOMI Neck: Supple, JVD not distended Respiratory: Clear to auscultation bilaterally, Normal air movement Cardiovascular: Regular rate/rhythm, Normal S1 S2 Gastrointestinal: Normal bowel sounds, No tenderness Musculoskeletal: No tenderness Integumentary: Other (Wound noted on the lower abdomen, bilateral lower extremity) Neurological: Normal speech, Normal tone, Normal affect Lymphatics: No axilla or inguinal lymphadenopathy - Studies Microbiology Data (last 24 hrs): 03/17/18 06:30 Wound - Abdomen Gram Stain - Final 03/17/18 06:30 Wound - Abdomen Culture & Sensitivity - Final Klebsiella Pneumoniae Proteus Mirabilis Assessment And Plan - Plan (1) Altered mental status Improving mentation. Per daughter, she has almost back to her baseline. (2) Gangrene of toe of left foot (3) wound on the abdomen (4) abdominal wound culture positive for ESBL Proteus mirabilis (5) abdominal wound culture positive for carbapenemase resistant Enterobaceteracie (Klebsiella Pneumonia) Wound care on board, wet to dry dressings per instructions General surgery consulted, recommendations appreciated Extensively discussed risks versus benefits of starting patient on gentamicin and meropenem to cover the above resistant bacteria. Risks do include include, but not limited to further damage to the kidneys and worsening kidney function Daughter agrees, she would like to have the antibiotics started (5) Diabetes Accu-Cheks, mild sliding scale insulin. Continue to monitor and adjust as needed (6) ESRD (end stage renal disease) Nephrology consulted Patient to continue her regular hemodialysis schedule. (7) HTN (hypertension) Continue home medications (8) Hyperlipidemia Continue home medications Disposition: Had a very long conversation with daughter regarding goals of care. Explained in detail the extent of the wound on abdomen along with gangrene. Daughter thinks that mother is suffering follow at as she has been through a lot, has a history of calciphylaxis, worsening kidney function, worsening mentation. Daughter does not know what options she has. Discussed different options, including hospice for comfort care. Daughter very much interested in the hospice as a she thinks this may help her mother not suffer as much. Will have social work consulted, to set up a hospice meeting for further information with daughter. DVT prophylaxis: Lovenox GI prophylaxis: None Diet: Renal Disposition: Pending symptomatic improvement. Pending discharge planning
[2018-03-21] MEDS: INSULIN GLARGINE 100 UNITS/ML SQ SCH (21:00)
[2018-03-22] MEDS: Meropenem 500 MG in NA CHLORIDE 0.9% 100 ML IV SCH ×2 (05:01→17:18)
[2018-03-22] MEDS: MORPHINE 4 MG/ML SYR IV PRN ×3 (06:23→18:43)
[2018-03-22] MEDS: INSULIN -REGULAR HUMAN 50 UNIT/0.5 ML ML SQ SCH ×4 (07:30→21:00)
[2018-03-22] MEDS: CLOPIDOGREL 75 MG TABLET PO SCH (08:04)
[2018-03-22] MEDS: HEPARIN 5000 UNIT/ML 1 ML VIAL SQ SCH ×2 (08:05→23:03)
[2018-03-22] MEDS: ACETIC ACID 0.25% IRRIG IRR SCH (08:08)
--- NOTE | 2018-03-22 11:26 | P.PN ---
Date of Service: 03/22/18 Vital Signs Temp Pulse Resp BP Pulse Ox 99.1 F 112 H 16 152/67 H 98 03/22/18 08:00 03/22/18 08:00 03/22/18 08:00 03/22/18 08:00 03/22/18 08:00 Medications Acetaminophen (Tylenol -Extra Strength) 500 mg PO Q4HP PRN PRN Reason: [id number] Stop: 04/15/18 18:22 Last Admin: 03/21/18 10:15 Dose: 500 mg Acetic Acid (Acetic Acid 0.25%) 1,000 ml IRR DAILY JACQUELINE Stop: 04/18/18 09:01 Last Admin: 03/22/18 08:08 Dose: 1,000 ml Clonidine HCl (Catapres) 0.1 mg PO Q6HR PRN PRN Reason: HIGH BP Stop: 04/16/18 07:01 Clopidogrel Bisulfate (Plavix) 75 mg PO DAILY JACQUELINE Stop: 04/16/18 09:01 Last Admin: 03/22/18 08:04 Dose: 75 mg Docusate Sodium (Colace Cap) 100 mg PO DAILY PRN PRN Reason: CONSTIPATION Stop: 04/16/18 07:01 Epoetin Gentry (Procrit) 10,000 unit IV EVERY HD JACQUELINE Stop: 04/15/18 22:31 Heparin Sodium (Porcine) (Heparin 5,000 Units/Ml) 5,000 unit SQ Q12HR JACQUELINE Stop: 04/16/18 09:01 Last Admin: 03/22/18 08:05 Dose: 5,000 unit Heparin Sodium (Porcine) (Heparin 1,000 Units/Ml) 6,000 unit IV EVERY HD PRN PRN Reason: FLUSH AFTER EACH USE Stop: 04/15/18 22:20 Albumin Human (Albumin 25%) 50 mls @ 100 mls/hr IV EVERY HD JACQUELINE Stop: 04/15/18 23:01 Meropenem 500 mg/ Sodium (Chloride) 100 mls @ 100 mls/hr IV Q12HR 6AM AND 6PM JACQUELINE Stop: 04/19/18 18:01 Last Admin: 03/22/18 05:01 Dose: 100 mls Gentamicin Sulfate 80 mg/ (Sodium Chloride) 102 mls @ 102 mls/hr IVPB AFTER EACH DIALYSIS JACQUELINE Stop: 02/18/19 18:01 Insulin Glargine (Lantus) 10 units SQ BEDTIME [facility] Stop: 04/16/18 21:01 Last Admin: 03/21/18 21:00 Dose: Not Given Insulin Human Regular (Novolin -R) 0 unit SQ ACHS [facility]; Protocol Stop: 04/15/18 21:01 Last Admin: 03/22/18 07:30 Dose: Not Given Mannitol (Mannitol 12.5 Gm/50 Ml Vial) 12.5 gm IV EVERY HD PRN PRN Reason: BP support at hemodialysis Stop: 04/15/18 22:20 Morphine Sulfate (Morphine Sulfate) 2 mg IV Q4H PRN PRN Reason: PAIN MODERATE TO SEVERE Stop: 04/20/18 10:51 Last Admin: 03/22/18 06:23 Dose: 2 mg Sodium Chloride (Normal Saline Flush) 10 ml IV BID [facility] Stop: 04/15/18 21:01 Last Admin: 03/22/18 08:06 Dose: 10 ml Microbiology Results 03/17/18 08:13 Blood - Blood Aerobic Blood Culture - Final No growth in 5 days. 03/17/18 08:13 Blood - Blood Anaerobic Blood Culture - Final 03/17/18 07:54 Blood - Blood Aerobic Blood Culture - Final No growth in 5 days. 03/17/18 07:54 Blood - Blood Anaerobic Blood Culture - Final 03/17/18 06:30 Wound - Abdomen Gram Stain - Final 03/17/18 06:30 Wound - Abdomen Culture & Sensitivity - Final Klebsiella Pneumoniae Proteus Mirabilis Assessment/ Plan: Nephrology CPS stable without CP or SOB. No acute events overnight. Limited IH/ ROS due to dementia. Vitals, medications, blood work and imaging reviewed in the chart. Physical Examination General: In no apparent distress, Cooperative, Confused HEENT: Atraumatic Neck: Supple Respiratory: Clear to auscultation bilaterally, Normal air movement Cardiovascular: No edema, Regular rate/rhythm, No rubs Gastrointestinal: Soft and benign, Non-distended Musculoskeletal: No clubbing, No contractures Integumentary: Skin breakdown, Skin lesion, Pressure ulcer Neurological: Abnormal gait, Abnormal speech, Abnormal strength Urinary: Dialysis catheter, Other (PD Catheter) Laboratory Data (last 24 hrs) 03/16/18 14:25: PT 13.2 H, INR 1.12, APTT 19.5 L 03/16/18 14:25: WBC 11.6 H, Hgb 11.0 L, Hct 34.1 L, Plt Count 414 H 03/16/18 14:25: Sodium 140, Potassium 4.3, BUN 27 H, Creatinine 2.45 H, Glucose 102 Imagings Data: EXAM DESCRIPTION: Aleksandr Single View03/16/2018 1:51 pm CLINICAL HISTORY: Shortness of breath COMPARISON: October 2017 FINDINGS: The lungs appear clear of acute infiltrate. The heart is normal size. Central venous line has its tip in the right atrium IMPRESSION: No acute abnormalities displayed EXAM DESCRIPTION: CT - Ct Stroke Brain Wo Cont - 03/16/2018 1:27 pm CLINICAL HISTORY: Declining state/confusion COMPARISON: October 2017 TECHNIQUE: Computed axial tomography of the head was obtained. IV contrast was not requested. All CT scans are performed using dose optimization technique as appropriate and may include automated exposure control or mA/KV adjustment according to patient size. FINDINGS: An intracranial bleed is not seen . The ventricles are normal in caliber. Mild low-density areas periventricular deep white matter may represent ischemic changes secondary to small vessel disease. No extra-axial fluid collection is noted. Chronic opacification of the left aspect of the sphenoid sinus. IMPRESSION: No acute intracranial abnormality is seen. If patient's symptoms persist MRI of the brain would be recommended Conclusions/Impression: A/ ESRD on HD. HTN with CKD/ CHF. Diastolic CHF, chronic. DM II with CKD. Anemia in CKD. CAD/ PAD with left toe ulcer. Left heel pressure ulcer. Chronic nocardia infection of LE. Bilateral lower abdominal wounds. P/ Continue current POC and Medications. Caution with opiates due to AMS. HD as ordered TTS. Agree with abx. Wound care as ordered. No NSAIDs. AM labs. Daily weight. Case discussed with Dr. Caal. Plan for hospice with dialysis. Agree with the PICC line for ferry terminal agent abx.
--- NOTE | 2018-03-22 11:46 | EKG ---
Test Date: 2018-03-21 Test Time: 21:14:28 Show Card Writer: PARTH MEASUREMENT RESULTS: Intervals: Rate: 57 CT: 150 QRSD: 76 QT: 440 QTc: 428 [place]: P: 61 CT: 150 QRS: 69 T: 54 INTERPRETIVE STATEMENTS: Sinus bradycardia Nonspecific T wave abnormality Abnormal ECG Compared to ECG 03/16/2018 14:52:47 Sinus rhythm no longer present Atrial premature complex(es) no longer present Possible ischemia no longer present T-wave abnormality still present Electronically Signed On 03-22-18 11:42:57 HEALTHCARE ADMINISTRATIVE ASSISTANT by Alexis Zamora
--- NOTE | 2018-03-22 16:53 | P.PN ---
Subjective Date of Service: 03/22/18 Chief Complaint: AMS Subjective: Improving Patient seen and examined at bedside. Daughter at bedside. Chart reviewed and case discussed with nursing staff. Patient seems to be a little bit more awake, though has bouts of intermittent confusion. Seen talking on the cellphone to daughter today. Also complaining of pain everywhere, worse in bilateral lower extremity. Review of Systems 10-point ROS is otherwise unremarkable Physical Examination - Vital Signs Temperature: 99 F Blood Pressure: 154/65 Pulse: 112 Respirations: 16 Pulse Ox (%): 98 - Physical Exam General: Oriented x1, Mild distress, Confused (Intermittent) HEENT: Atraumatic, PERRLA, EOMI Neck: Supple, JVD not distended Respiratory: Clear to auscultation bilaterally, Normal air movement Cardiovascular: Regular rate/rhythm, Normal S1 S2 Gastrointestinal: Normal bowel sounds, No tenderness Musculoskeletal: No tenderness Integumentary: Skin breakdown, Skin lesion, Tenderness/swelling, Erythema Neurological: Normal speech, Normal tone, Normal affect Lymphatics: No axilla or inguinal lymphadenopathy - Studies Microbiology Data (last 24 hrs): 03/17/18 08:13 Blood - Blood Aerobic Blood Culture - Final No growth in 5 days. 03/17/18 08:13 Blood - Blood Anaerobic Blood Culture - Final 03/17/18 07:54 Blood - Blood Aerobic Blood Culture - Final No growth in 5 days. 03/17/18 07:54 Blood - Blood Anaerobic Blood Culture - Final Assessment And Plan - Plan Altered mental status Improving mentation. Per daughter, she has almost back to her baseline. Gangrene of toe of left foot wound on the abdomen abdominal wound culture positive for ESBL Proteus mirabilis abdominal wound culture positive for carbapenemase resistant Enterobaceteracie ( Klebsiella Pneumonia) Wound care on board, wet to dry dressings per instructions Extensively discussed risks versus benefits of starting patient on gentamicin and meropenem to cover the above resistant bacteria. Risks do include, but not limited to further damage to the kidneys and worsening kidney function Daughter agrees, she would like to have the antibiotics started. Confirmed daughter would want PICC line placed as meropenem will need to be given via PICC line at home. The Gentamycin will be given with dialysis. PICC line ordered. Case discussed with Dr. Clark and he agrees with PICC line placement for assisted antibiotics (5) Diabetes Accu-Cheks, mild sliding scale insulin. Continue to monitor and adjust as needed (6) ESRD (end stage renal disease) Nephrology consulted, Recommendations appreciated. Patient to continue her regular hemodialysis schedule. (7) HTN (hypertension) Continue home medications (8) Hyperlipidemia Continue home medications DVT prophylaxis: Lovenox GI prophylaxis: None Diet: Renal Disposition: Daughter has chosen [facility] hospice. Forms signed. Patient will get PICC line placed today, then discharged to [place] with Hospice. Discharge Plan: [facility] Plan to discharge in: 24 Hours Time Spent Managing PTS Care (In Minutes): 35
--- NOTE | 2018-03-22 17:13 | P.DS ---
Admission Date: 03/19/18 Primary Care Provider: Dr. hess Disposition: HOSPICE-HOME Comment: To [facility] with Hospice Discharge Condition: FAIR Reason for Admission: AMS Consultations: Nephrology, Dr. Clark Hospital Course: Patient is a 73-year-old female who was admitted for altered mental status. She is a patient of Dr. Kumar. Patient has a hx of ESRD, on Dialysis, gangrenous left toe, history of calciphylaxis, Extensive abdominal wound. She was admitted to the floor, with tele monitoring. Blood cultures and wound cultures were drawn. She was started on broad spectrum IV antibiotics. Nephrology and wound care was consulted. Slowly, her mentation started to improve but she had frequent complaints of lower extremity pain and pain in the wound of abdomen. Her antibioics were adjusted to meropenem and gentamycin as abdominal wound culture positive for carbapenemase resistant Enterobaceteracie ( Klebsiella Pneumonia) and ESBL Proteus Mirabilis. Slowly, her mentation did return to baseline, per daughter. Goals of care were discussed extensively with patients daughter, options were given to her and she decided to go with Hospice. Patient was made DNR inpatient, out of hospital DNR form was signed and hospice forms were signed with [facility]. Daughter still wanted IV antibiotic treatments and HD while on hospice. Case was discussed with Dr. Clark who agreed with IV gentamycin with dialysis. Meropenem would not be given with dialysis and therefore it was decided that patient would benefit from a PICC line placement. PICC line was ordered and placed. Patient will be discharged to [place] on hospice once PICC line placed and Hospice equipment set up. Vital Signs/Physical Exam: Temp Pulse Resp BP Pulse Ox 99 F 112 H 16 154/65 H 98 03/22/18 16:53 03/22/18 16:53 03/22/18 16:53 03/22/18 16:53 03/22/18 16:53 General: In no apparent distress, Cachectic, Confused, Other (ill-appearing) HEENT: Atraumatic, PERRLA, EOMI Neck: Supple, JVD not distended Respiratory: Clear to auscultation bilaterally, Normal air movement Cardiovascular: Regular rate/rhythm, Normal S1 S2 Gastrointestinal: Normal bowel sounds, No tenderness Integumentary: Rash(es), Skin breakdown, Skin lesion, Other (Dry Gangrene) Laboratory Data at Discharge: WBC 11.7 K/uL (4.3-10.9) H 03/18/18 05:22 Hgb 9.4 g/dL (12.0-15.0) L 03/18/18 05:22 Hct 29.0 % (36.0-45.0) L 03/18/18 05:22 Plt Count 323 K/uL (152-406) D 03/18/18 05:22 PT 13.2 SECONDS (9.5-12.5) H 03/16/18 14:25 INR 1.12 03/16/18 14:25 APTT 19.5 SECONDS (24.3-36.9) L 03/16/18 14:25 Sodium 140 mmol/L (136-145) 03/21/18 05:30 Potassium 4.5 mmol/L (3.5-5.1) 03/21/18 05:30 BUN 20 mg/dL (7-18) H 03/21/18 05:30 Creatinine 3.03 mg/dL (0.55-1.3) H D 03/21/18 05:30 Glucose 69 mg/dL (74-106) L 03/21/18 05:30 Phosphorus 2.8 mg/dL (2.5-4.9) D 03/21/18 05:30 Magnesium 2.3 mg/dL (1.8-2.4) 03/19/18 05:57 Total Bilirubin 0.4 mg/dL (0.2-1.0) 03/17/18 04:00 AST 14 U/L (15-37) L 03/17/18 04:00 ALT 11 U/L (12-78) L 03/17/18 04:00 Alkaline Phosphatase 82 U/L (45-117) 03/17/18 04:00 Home Medications: Ascorbic Acid [Vitamin C] 500 mg PO DAILY 03/17/18 Aspirin 81 mg PO DAILY 03/17/18 Atorvastatin Calcium [Lipitor] 20 mg PO BEDTIME 03/17/18 Bisacodyl [Dulcolax] 10 mg DAILY PRN 03/17/18 Calcium Carbonate [Calcium] 1,250 mg PO TID 03/17/18 Clonidine HCl [Catapres] 0.1 mg PO Q6HR PRN 03/17/18 Clopidogrel Bisulfate [Plavix] 75 mg PO DAILY 03/17/18 Docusate [Colace Cap*] 100 mg PO DAILY PRN 03/17/18 Folic Acid 1 mg PO DAILY 03/17/18 Hydromorphone [Dilaudid] 4 mg PO Q4HR PRN 03/17/18 Insulin Glargine,Hum.rec.anlog [Lantus] 10 unit SQ BEDTIME 03/17/18 Insulin Lispro [Humalog] 5 units SQ ACHS 03/17/18 Megestrol [Megace] 400 mg PO DAILY 03/17/18 Midodrine HCl 10 mg PO BID 03/17/18 Multivitamin with Minerals [Multivitamins with Minerals] 500 mg PO DAILY Ondansetron HCl [Zofran] 4 mg PO Q6HR PRN 03/17/18 Sulfamethoxazole/Trimethoprim [Bactrim 400-80 mg Tablet] 80 mg PO DAILY Tramadol HCl [Ultram] 50 mg PO Q6HR PRN 03/17/18 Vit B Comp No.3/Folic/C/Biotin [Nephro-Dimitris Rx Tablet] 300 mg PO DAILY 03/17/18 Whey Protein/Arginine/C/E/Zinc [Arginaid Extra Liquid] 237 ml PO BID 03/17/18 Zinc Sulfate [Zinc Sulfate*] 220 mg PO DAILY 03/17/18
[2018-03-22] MEDS: INSULIN GLARGINE 100 UNITS/ML SQ SCH (21:00)
[2018-03-23] MEDS: MORPHINE 4 MG/ML SYR IV PRN ×3 (01:42→20:04)
[2018-03-23 05:12] LABS: Absolute Monocytes 1.2 K/uL (0.1-1.3); Absolute Neutrophil 9.1 K/uL (1.8-8.0); Basophils % 0.9 % (0-1.3); Eosinophils % 3.3 % (0-4.4); Hematocrit 28.6 % (36.0-45.0); Lymphocytes % 15.6 % (15.3-44.8); MPV 8.1 fL (7.6-11.3); Monocytes % 9.2 % (3.3-12.3); RBC Red Blood Cell Count 3.04 M/uL (3.86-4.86)
[2018-03-23 05:29] LABS: Phosphorus 4.4 mg/dL (2.5-4.9); Potassium 4.8 mmol/L (3.5-5.1)
[2018-03-23] MEDS: Meropenem 500 MG in NA CHLORIDE 0.9% 100 ML IV SCH ×2 (06:00→17:19)
[2018-03-23] MEDS: INSULIN -REGULAR HUMAN 50 UNIT/0.5 ML ML SQ SCH ×4 (07:30→20:19)
--- NOTE | 2018-03-23 08:30 | RAD REPORT ---
EXAM DESCRIPTION: RAD - Chest Single View - 03/23/2018 12:32 am CLINICAL HISTORY: PICC Placement COMPARISON: Chest Single View dated 03/16/2018; Chest Single View dated 11/12/2017; Chest Single View dated 09/07/2017; Chest Single View dated 07/17/2017 FINDINGS: Portable chest was obtained following placement of a right upper extremity PICC line. The catheter tip projects over the SVC..
[2018-03-23] MEDS: ACETIC ACID 0.25% IRRIG IRR SCH (09:21)
[2018-03-23] MEDS: CLOPIDOGREL 75 MG TABLET PO SCH (09:21)
[2018-03-23] MEDS: HEPARIN 5000 UNIT/ML 1 ML VIAL SQ SCH ×2 (09:21→20:12)
--- NOTE | 2018-03-23 19:02 | PN ---
Date of Progress Note: 03/23/2018 Subjective: The patient is seen and examined. Chart reviewed, and case discussed with RN. Spoke wi th daughter at length concerning the family's wishes and the patient's wishes. Medications: List reviewed. Code Status: Do not resuscitate. Physical Examination: Vital Signs: Temperature 98.5, heart rate 111, blood pressure 163/83, respirations 16, O2 of 95% on room air. General: Awake, alert, oriented x3. Some mild distress. An ill-appearing elderly female. CV: S1, S2. Peripheral pulses are weak. Respiratory: Moving air well bilaterally. No wheezing. Gastrointestinal: Abdomen is soft, nontender, nondistended. Positive bowel sounds. Extremities: No clubbing, cyanosis, or edema. Neurologic: Nonfocal. Skin: The patient has multiple wounds on the abdomen. Laboratory Data: Sodium 143, potassium 4.8, chloride 111, CO2 of 23, BUN 36, creatinine 4.97, glucos e 79, lactate 0.4, calcium 8.9, phosphorus 4.4. WBC 12.9, H and H 9.1 and 28.6, platelets 376. Woun d cultures from the abdomen growing ESBL-producing Proteus and Klebsiella, which is carbapenemase-res istant Enterobacteriaceae. Assessment: A 73-year-old female with: 1.Toxic encephalopathy secondary to wounds. 2.Gangrene of left foot toe. 3.Wound on abdomen. Culture positive for extended-spectrum beta-lactamase Proteus and carbapenemase -resistant Enterobacteriaceae, Klebsiella pneumoniae. On meropenem and gentamicin with dialysis. 4.Diabetes mellitus type 2, insulin requiring with hyperglycemia. We will continue with Accu-Cheks. 5.End-stage renal disease, on hemodialysis. Nephrology on board. 6.Essential hypertension, stable. 7.Mixed hyperlipidemia. 8.Gastrointestinal and deep venous thrombosis prophylaxis addressed. Chest x-ray shows PICC line pl acement. Plan: A 73-year-old female, we will transfer to hospice versus SNF if family wants to complete antib iotics and treatment before pursuing hospice. Case management involved. /ZIA Voice ID: [id number] Report ID: [id number]
[2018-03-23] MEDS: INSULIN GLARGINE 100 UNITS/ML SQ SCH (20:11)
--- NOTE | 2018-03-23 21:19 | P.PN ---
Date of Service: 03/23/18 Vital Signs Temp Pulse Resp BP Pulse Ox 98.2 F 108 H 17 124/59 L 100 03/23/18 20:00 03/23/18 20:00 03/23/18 20:00 03/23/18 20:00 03/23/18 20:00 Medications Acetaminophen (Tylenol -Extra Strength) 500 mg PO Q4HP PRN PRN Reason: [id number] Stop: 04/15/18 18:22 Last Admin: 03/21/18 10:15 Dose: 500 mg Acetic Acid (Acetic Acid 0.25%) 1,000 ml IRR DAILY JACQUELINE Stop: 04/18/18 09:01 Last Admin: 03/23/18 09:21 Dose: 1,000 ml Clonidine HCl (Catapres) 0.1 mg PO Q6HR PRN PRN Reason: HIGH BP Stop: 04/16/18 07:01 Clopidogrel Bisulfate (Plavix) 75 mg PO DAILY JACQUELINE Stop: 04/16/18 09:01 Last Admin: 03/23/18 09:21 Dose: 75 mg Docusate Sodium (Colace Cap) 100 mg PO DAILY PRN PRN Reason: CONSTIPATION Stop: 04/16/18 07:01 Epoetin Gentry (Procrit) 10,000 unit IV EVERY HD JACQUELINE Stop: 04/15/18 22:31 Last Admin: 03/23/18 10:29 Dose: 10,000 unit Heparin Sodium (Porcine) (Heparin 5,000 Units/Ml) 5,000 unit SQ Q12HR JACQUELINE Stop: 04/16/18 09:01 Last Admin: 03/23/18 20:12 Dose: 5,000 unit Heparin Sodium (Porcine) (Heparin 1,000 Units/Ml) 6,000 unit IV EVERY HD PRN PRN Reason: FLUSH AFTER EACH USE Stop: 04/15/18 22:20 Last Admin: 03/23/18 10:28 Dose: 6,000 unit Albumin Human (Albumin 25%) 50 mls @ 100 mls/hr IV EVERY HD JACQUELINE Stop: 04/15/18 23:01 Meropenem 500 mg/ Sodium (Chloride) 100 mls @ 100 mls/hr IV Q12HR 6AM AND 6PM JACQUELINE Stop: 04/19/18 18:01 Last Admin: 03/23/18 17:19 Dose: 100 mls Gentamicin Sulfate 80 mg/ (Sodium Chloride) 102 mls @ 102 mls/hr IVPB AFTER EACH DIALYSIS [facility] Stop: 04/19/18 18:01 Insulin Glargine (Lantus) 10 units SQ BEDTIME JACQUELINE Stop: 04/16/18 21:01 Last Admin: 03/23/18 20:11 Dose: Not Given Insulin Human Regular (Novolin -R) 0 unit SQ ACHS [facility]; Protocol Stop: 04/15/18 21:01 Last Admin: 03/23/18 20:19 Dose: Not Given Mannitol (Mannitol 12.5 Gm/50 Ml Vial) 12.5 gm IV EVERY HD PRN PRN Reason: BP support at hemodialysis Stop: 04/15/18 22:20 Morphine Sulfate (Morphine Sulfate) 2 mg IV Q4H PRN PRN Reason: PAIN MODERATE TO SEVERE Stop: 04/20/18 10:51 Last Admin: 03/23/18 20:04 Dose: 2 mg Sodium Chloride (Normal Saline Flush) 10 ml IV BID [facility] Stop: 04/15/18 21:01 Last Admin: 03/23/18 20:48 Dose: 10 ml Microbiology Results 03/17/18 08:13 Blood - Blood Aerobic Blood Culture - Final No growth in 5 days. 03/17/18 08:13 Blood - Blood Anaerobic Blood Culture - Final 03/17/18 07:54 Blood - Blood Aerobic Blood Culture - Final No growth in 5 days. 03/17/18 07:54 Blood - Blood Anaerobic Blood Culture - Final 03/17/18 06:30 Wound - Abdomen Gram Stain - Final 03/17/18 06:30 Wound - Abdomen Culture & Sensitivity - Final Klebsiella Pneumoniae Proteus Mirabilis Assessment/ Plan: Nephrology CPS stable without CP or SOB. No acute events overnight. Limited IH/ ROS due to dementia. Vitals, medications, blood work and imaging reviewed in the chart. Physical Examination General: In no apparent distress, Cooperative, Confused HEENT: Atraumatic Neck: Supple Respiratory: Clear to auscultation bilaterally, Normal air movement Cardiovascular: No edema, Regular rate/rhythm, No rubs Gastrointestinal: Soft and benign, Non-distended Musculoskeletal: No clubbing, No contractures Integumentary: Skin breakdown, Skin lesion, Pressure ulcer Neurological: Abnormal gait, Abnormal speech, Abnormal strength Urinary: Dialysis catheter, Other (PD Catheter) Laboratory Data (last 24 hrs) 03/16/18 14:25: PT 13.2 H, INR 1.12, APTT 19.5 L 03/16/18 14:25: WBC 11.6 H, Hgb 11.0 L, Hct 34.1 L, Plt Count 414 H 03/16/18 14:25: Sodium 140, Potassium 4.3, BUN 27 H, Creatinine 2.45 H, Glucose 102 Imagings Data: EXAM DESCRIPTION: Aleksandr Single View03/16/2018 1:51 pm CLINICAL HISTORY: Shortness of breath COMPARISON: October 2017 FINDINGS: The lungs appear clear of acute infiltrate. The heart is normal size. Central venous line has its tip in the right atrium IMPRESSION: No acute abnormalities displayed EXAM DESCRIPTION: CT - Ct Stroke Brain Wo Cont - 03/16/2018 1:27 pm CLINICAL HISTORY: Declining state/confusion COMPARISON: October 2017 TECHNIQUE: Computed axial tomography of the head was obtained. IV contrast was not requested. All CT scans are performed using dose optimization technique as appropriate and may include automated exposure control or mA/KV adjustment according to patient size. FINDINGS: An intracranial bleed is not seen . The ventricles are normal in caliber. Mild low-density areas periventricular deep white matter may represent ischemic changes secondary to small vessel disease. No extra-axial fluid collection is noted. Chronic opacification of the left aspect of the sphenoid sinus. IMPRESSION: No acute intracranial abnormality is seen. If patient's symptoms persist MRI of the brain would be recommended Conclusions/Impression: A/ ESRD on HD. HTN with CKD/ CHF. Diastolic CHF, chronic. DM II with CKD. Anemia in CKD. CAD/ PAD with left toe ulcer. Left heel pressure ulcer. Chronic nocardia infection of LE. Bilateral lower abdominal wounds. P/ Continue current POC and Medications. Caution with opiates due to AMS. HD as ordered TTS. Agree with abx. Wound care as ordered. No NSAIDs. AM labs. Daily weight. Plan for hospice with dialysis? 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
[2018-03-24] MEDS: MORPHINE 4 MG/ML SYR IV PRN ×2 (00:08→10:30)
[2018-03-24] MEDS: Meropenem 500 MG in NA CHLORIDE 0.9% 100 ML IV SCH (05:28)
[2018-03-24 06:15] VITALS: BMI 27.3
[2018-03-24] MEDS: INSULIN -REGULAR HUMAN 50 UNIT/0.5 ML ML SQ SCH ×2 (07:30→11:30)
[2018-03-24] MEDS: ACETIC ACID 0.25% IRRIG IRR SCH (09:00)
[2018-03-24] MEDS: HEPARIN 5000 UNIT/ML 1 ML VIAL SQ SCH (10:08)
[2018-03-24] MEDS: CLOPIDOGREL 75 MG TABLET PO SCH (10:08)
[2018-03-24 11:19] VITALS: O2SAT 96
[2018-03-24 16:45] VITALS: BP 125/54; TEMP 98.2
--- NOTE | 2018-03-24 17:16 | PN ---
Date of Progress Note: 03/24/2018 Subjective: Patient is seen and examined. Chart reviewed and case discussed with RN. The patient w as discharged yesterday. Family was contacted. They decided against any aggressive IV antibiotics o r hemodialysis. Wished to pursue hospice care. The patient stated that she does not want anything a nd wants to be comfortable and out of pain. Medications: List reviewed. Physical Examination: Vital Signs: Temperature 97.8, heart rate 96, blood pressure 122/57, respirations 18, O2 96% on room air. General: Awake, alert, oriented x3. Some mild distress, ill-appearing elderly female. CV: S1, S2. Peripheral pulses weak bilaterally. Respiratory: Moving air well bilaterally. No wheezing. Gastrointestinal: Abdomen is soft, nontender, nondistended. Positive bowel sounds. Extremities: No clubbing, cyanosis, edema. Neurologic: Nonfocal. Laboratory Data: Blood cultures, no growth to date. Wound culture growing Klebsiella pneumoniae and Proteus, multi drug-resistant. Assessment: A 73-year-old female with, 1.Toxic encephalopathy secondary to wounds, improved. 2.Gangrene of the left foot. 3.Abdominal wound secondary to Extended-spectrum beta-lactamases Proteus and carbapenemase-resistant Enterobacteriaceae. Continue meropenem and gentamicin with dialysis. 4.Diabetes mellitus type 2, insulin requiring with hyperglycemia. I will continue Accu-Cheks. 5.End-stage renal disease, on hemodialysis. Nephrology on board. 6.Essential hypertension, stable. 7.Mixed hyperlipidemia. 8.Gastrointestinal and deep venous thrombosis prophylaxis addressed. Plan: After a long discussion with family and patient, they wished to pursue hospice without long-te rm IV antibiotics and dialysis which will require SNF placement initially. The patient to be dischar ged to facility with hospice this afternoon. /[email or web address] Voice ID: [id number] Report ID: [id number]
== END 2018-03-24 16:43 | disposition hospice, inpatient (51) | DRG 291 ==
LOC: ER 12:41 → ERHOLD 16:34 → 4TH 17:57 → OBSVTOIN 03-19 08:15
PROVIDERS: ADMIT Family Medicine; ATTEND Family Medicine
PROC: 5A1D70Z Performance of Urinary Filtration, Intermittent, Less than 6 Hours Per Day (ICD-10-PCS; 2018-03-17)
PROC: 5A1D70Z Performance of Urinary Filtration, Intermittent, Less than 6 Hours Per Day (ICD-10-PCS; 2018-03-19)
PROC: 02HV33Z Insertion of Infusion Device into Superior Vena Cava, Percutaneous Approach (ICD-10-PCS; principal; 2018-03-22)
PROC: B548ZZA Ultrasonography of Superior Vena Cava, Guidance (ICD-10-PCS; 2018-03-22)
PROC: 5A1D70Z Performance of Urinary Filtration, Intermittent, Less than 6 Hours Per Day (ICD-10-PCS; 2018-03-23)
DX: I13.2 Hypertensive heart and chronic kidney disease with heart failure and with stage 5 chronic kidney disease, or end stage renal disease (principal); N18.6 End stage renal disease; G92 Toxic encephalopathy; I50.32 Chronic diastolic (congestive) heart failure; L97.429 Non-pressure chronic ulcer of left heel and midfoot with unspecified severity; E11.52 Type 2 diabetes mellitus with diabetic peripheral angiopathy with gangrene; E11.22 Type 2 diabetes mellitus with diabetic chronic kidney disease; Z99.2 Dependence on renal dialysis; Z79.4 Long term (current) use of insulin; D63.1 Anemia in chronic kidney disease; I25.10 Atherosclerotic heart disease of native coronary artery without angina pectoris; E11.621 Type 2 diabetes mellitus with foot ulcer; L97.529 Non-pressure chronic ulcer of other part of left foot with unspecified severity; E11.65 Type 2 diabetes mellitus with hyperglycemia; E78.2 Mixed hyperlipidemia; Z66 Do not resuscitate; S31.109A Unspecified open wound of abdominal wall, unspecified quadrant without penetration into peritoneal cavity, initial encounter; B96.4 Proteus (mirabilis) (morganii) as the cause of diseases classified elsewhere; B96.1 Klebsiella pneumoniae [K. pneumoniae] as the cause of diseases classified elsewhere; Z16.12 Extended spectrum beta lactamase (ESBL) resistance; X58.XXXA Exposure to other specified factors, initial encounter; Y93.9 Activity, unspecified; Y92.9 Unspecified place or not applicable
CPT/HCPCS: 36415; 70450; 71045; 80048; 80053; 80202; 82140; 82805; 82962; 83605; 83735; 84100; 84145; 84439; 84443; 85025; 85610; 85652; 85730; 87040; 87070; 87077; 87186; 87205; 90935; 93005; 94760; 99285; G0378; J1580; J1644; J1650; P9047; Q4081